=== PATIENT | male | born 1960 | race African-American/Black ===

== ENCOUNTER 2017-06-19 07:24 | Emergency (ER) | payer MEDICARE, SELFPAY ==
[2017-06-19 07:25] VITALS: BP 149/83; PULSE 66; RESP 17; TEMP 36.5; O2SAT 97; BMI 243.2
--- NOTE | 2017-06-19 07:51 | ED.DCSUM_ITS ---
- ER Visit Summary Date of Service: 06/19/17 Chief Complaint: Nausea and vomiting History of Present Illness: The patient is a 56 M history of hypertension, anemia and end-stage renal disease. He is normally dialyzed Saturday. Today he went to dialysis had nausea vomiting and they sent him into the ER. He never was dialyzed today and his last dialysis was Saturday. He did have some abdominal cramping when he was vomiting he said that is completely resolved. He denies any recent abdominal pain in the last several days. His last bowel movement was yesterday. He denies any melena. He still is able to urinate and is urinating normally. He denies any dysuria. He denies any fever. He denies any headache, chest pain or shortness of breath. He is not on any blood thinners. Physical Examination: Well appearing middle-aged male. Vital signs are stable and afebrile. He does not look septic or toxic. He is in no acute distress. H EENT exam unremarkable. No facial droop. Normal speech. No signs of trauma. Neck nontender no lymphadenopathy. Lungs clear to auscultation bilaterally. Heart regular rate and rhythm no murmur. Abdomen is soft and nontender. Normal bowel sounds. Nondistended. No hernias or masses. No peritoneal signs. He is moving all 4 extremities. 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 Normal range of motion both upper and lower extremities. Neurologic exam is normal without focal motor or deficits. Test Results: BC shows a white count of 4. H&H of 10 and 31 which are both baseline anemia for this patient and also low platelets which are also his baseline. Electrolytes are unremarkable anion gap of 11. He is a dialysis patient is BUN is 34 his creatinine is 12.9. His potassium is normal. Emergency Department Course and Treatment: Currently patient states his nausea is completely resolved. He is no longer having any abdominal pain. He does not want anything for pain or nausea. Treatment Plan: Repeat exam the patient is doing well at 08 41. His nausea is resolved. He is having no abdominal pain and he will be discharged to home. We will speak with dialysis to see if he can get dialyzed today since he missed his appointment this morning. Disposition: Discharge Impression: Acute nausea and vomiting History of end-stage renal disease and dialysis. History of hypertension and chronic anemia This note was generated with Dragon dictation software. It may contain incorrect words, spelling, and punctuation that were not noted in review of the chart prior to signing ED Disposition - Plan for ED Patient: Disposition: Home or Assisted Living Chief Complaint: Nausea/Vomiting Instructions: ED Nausea Vomiting Prescriptions: Ondansetron [Zofran Odt] 4 mg PO Q4H PRN PRN #7 tab.rapdis PRN Reason: Nausea Referrals: Sesar Quiñones MD [Primary Care Provider] - As Needed Additional Instructions: Zofran as needed for nausea Call or return if you are feeling worse
--- NOTE | 2017-06-19 08:16 | ED.DEP ---
ED Disposition - Plan for ED Patient: Disposition: Home or Assisted Living Chief Complaint: Nausea/Vomiting Instructions: ED Nausea Vomiting Prescriptions: Ondansetron [Zofran Odt] 4 mg PO Q4H PRN PRN #7 tab.rapdis PRN Reason: Nausea Referrals: Sesar Quiñones MD [Primary Care Provider] - As Needed Additional Instructions: Zofran as needed for nausea Call or return if you are feeling worse
[2017-06-19 08:23] LABS: Absolute Lymphocyte Count 1.43 X10^3/ul (0.83-4.51); Absolute Neutrophil Count 2.2 X10^3/uL (2.0-7.7); Basophil# 0.03 X10^3/uL; Basophil% 0.7 % (0-1); Eosinophil# 0.21 X10^3/uL; Hematocrit 31.6 % (40-54); Hemoglobin 10.1 g/dl (13.0-16.5); Lymphocyte # 1.43 X10^3/ul (4.0); Mean Corpuscular Hgb 30.6 pg (27.0-32.0); Mean Corpuscular Volume 95.8 fL (80-94); Mean Platelet Vol. 10.1 fl (6.2-12.0); Monocyte# 0.29 X10^3/uL; Monocyte% 6.9 % (0-10); Neutrophil # 2.24 X10^3/uL (2.7-7.7); Neutrophil % 53.4 % (47-70); Platelet Count 130 K/mm3 (150-450); RBC Distribution Width CV 14.1 % (11.6-14.6); RBC Distribution Width SD 49.4 fl (35.1-43.9); White Blood Count 4.2 K/mm3 (4.4-11.0)
[2017-06-19 08:24] LABS: POSITIVE COUNT NO; POSITIVE DIFFERENTIAL NO; POSITIVE MORPHOLOGY NO
[2017-06-19 08:40] LABS: Anion Gap 11 (5-15); BUN 34 mg/dL (7-18); BUN/Creat Ratio 2.6 RATIO (10-20); Calcium,Total 7.5 mg/dL (8.5-10.1); Chloride 100 mmol/L (98-107); EST Glomerular Filtration Rate 4 mL/min (>60); Est Glom Filt Rate - Afr Amer 5 mL/min (>60); Estimated Creatinine Clearance 6.32 ml/min; Glucose 93 mg/dL (74-106); Potassium 3.9 mmol/L (3.5-5.1); Sodium Level 144 mmol/L (136-145)
[2017-06-19 08:55] VITALS: BP 127/71; PULSE 73; RESP 15; O2SAT 98
--- NOTE | 2017-06-19 09:05 | NURSING ---
CALLED SAME FOR TRANSPORT
== END 2017-06-19 09:30 | disposition home or self-care (01) ==
PROVIDERS: Emergency Provider Emergency Medicine; Family Provider Family Medicine; PCP Family Medicine
DX: R11.2 Nausea with vomiting, unspecified (principal); I12.0 Hypertensive chronic kidney disease with stage 5 chronic kidney disease or end stage renal disease; N18.6 End stage renal disease; D63.1 Anemia in chronic kidney disease; Z99.2 Dependence on renal dialysis; Z79.899 Other long term (current) drug therapy; Z72.0 Tobacco use
CPT/HCPCS: 36415; 80048; 85025; A4216

== ENCOUNTER 2017-06-19 18:11 | Emergency (ER) | payer MEDICARE, SELFPAY ==
[2017-06-19 18:12] VITALS: BP 161/76; PULSE 87; RESP 24; TEMP 36.4; O2SAT 98; BMI 25.3
--- NOTE | 2017-06-19 18:38 | EKG12_ITS ---
Test Reason : NAUSEA Blood Pressure : / mmHG Vent. Rate : 052 BPM Atrial Rate : 052 BPM P-R Int : 166 ms QRS Dur : 168 ms QT Int : 714 ms P-R-T Axes : 054 057 201 degrees QTc Int : 664 ms Sinus bradycardia Left bundle branch block Abnormal ECG Repolarization Confirmed by MODESTA DINH, MEHDI ([id number]), multimedia editor LEVI ROSE ([id number]) on 06/25/2017 1:46:28 PM Referred By: AILEEN Confirmed By:MEHDI BYERS MD
[2017-06-19] MEDS: Ondansetron ODT 4 MG Tablet 8 MG PO (18:47)
[2017-06-19 20:56] VITALS: BP 146/106; PULSE 61; RESP 14
[2017-06-19] MEDS: Morphine 4 MG/ML Syringe IV (21:32)
[2017-06-19 21:33] VITALS: BP 156/75; PULSE 61; RESP 16
[2017-06-19] MEDS: proMETHazine 25 MG/ML Syringe 6.25 MG IV (21:33)
[2017-06-19 22:04] VITALS: BP 156/75; PULSE 63; RESP 18
--- NOTE | 2017-06-19 22:10 | ED.DCSUM_ITS ---
- ER Visit Summary Date of Service: 06/19/17 Chief Complaint: Nausea and vomiting History of Present Illness: The patient is a [address] Quiñones. Patient was seen in the emergency department earlier today with nausea and vomiting. This resolved and he left and went to dialysis. Reports that after dialysis he became nauseated again. He has not vomited. He reports that he is spitting up. He denies any abdominal pain. He does report he had one episode of diarrhea today. He denies any chest pain or shortness of breath. He does complain of subjective fever and chills. Physical Examination: Vitals: Stable. Afebrile. General: Well-nourished and well-developed. Head: Normocephalic atraumatic. Neck: Supple, no lymphadenopathy. No JVD. Nontender. Cardiovascular: Regular rate and rhythm. No murmurs. Respiratory: No respiratory distress. Clear to auscultation bilaterally. Abdominal: Soft, nontender, nondistended, normal bowel sounds. No guarding, rebound, or peritoneal signs. Back: Nontender. Extremities: Nontender, no edema. Skin: Normal color, no rash. Neurologic: Alert and oriented ?3. Cranial nerves II through XII are intact. Normal strength and sensation. Psych: Normal affect. Test Results: Blood work from 819 this morning was not repeated. He has had dialysis since that time. It was unremarkable. However, an EKG was obtained which shows sinus bradycardia rate of 52 with left bundle branch block. This is has no significant changes since March. I feel that the only real difference is lead placement. His troponin was negative. Emergency Department Course and Treatment: Patient is treated Zofran p.o. and Phenergan IV. He has not vomited and is resting comfortably. Treatment Plan: Patient feels well and would like to go home. He will be discharged with Zofran and Phenergan. Instructed to follow-up with Dr. Quiñones in 1-2 days if not improving. Return to the emergency department for any worsening symptoms. Disposition: To home in improved and stable condition. Impression: 1. Vomiting. 2. End-stage renal disease. 3. Left bundle branch block, old. This note was generated with [employer] software. It may contain incorrect words, spelling, and punctuation that were not noted in review of the chart prior to signing ED Disposition - Plan for ED Patient: Disposition: Home or Assisted Living Chief Complaint: Nausea/Vomiting Instructions: ED Nausea Vomiting Prescriptions: proMETHazine tablet [Phenergan] 25 mg PO Q6H PRN PRN #10 tablet PRN Reason: Nausea Ondansetron [Zofran Odt] 4 mg PO Q8H PRN PRN #10 tablet PRN Reason: Nausea Referrals: Sesar Quiñones MD [Primary Care Provider] - 1-2 Days if not improving
[2017-06-19] MEDS: Ondansetron ODT 4 MG Tablet PO (22:29)
[2017-06-19] MEDS: proMETHazine 25 MG Tablet PO (22:29)
== END 2017-06-19 22:34 | disposition home or self-care (01) ==
PROVIDERS: Emergency Provider Emergency Medicine; Family Provider Family Medicine; PCP Family Medicine
DX: R11.2 Nausea with vomiting, unspecified (principal); I12.0 Hypertensive chronic kidney disease with stage 5 chronic kidney disease or end stage renal disease; N18.6 End stage renal disease; D63.1 Anemia in chronic kidney disease; I44.7 Left bundle-branch block, unspecified; Z79.899 Other long term (current) drug therapy; Z99.2 Dependence on renal dialysis; Z72.0 Tobacco use
CPT/HCPCS: 36415; 80048; 84484; 85025; 93005; 96374; 96375; 99283; 99285; A4216

== ENCOUNTER 2017-06-27 22:44 | Emergency (ER) | payer MEDICARE, SELFPAY ==
[2017-06-27 22:45] VITALS: BP 167/108; PULSE 68; RESP 17; TEMP 36.2; O2SAT 96; BMI 25.1
--- NOTE | 2017-06-28 00:08 | EKG12_ITS ---
Test Reason : Blood Pressure : / mmHG Vent. Rate : 072 BPM Atrial Rate : 072 BPM P-R Int : 170 ms QRS Dur : 156 ms QT Int : 476 ms P-R-T Axes : 047 016 183 degrees QTc Int : 521 ms Normal sinus rhythm Left bundle branch block Abnormal ECG Confirmed by RUBIO DINH, MIRIAM ([id number]), photo editor LEVI ROSE ([id number]) on 07/01/2017 3:00:37 PM Referred By: HELEN Confirmed By:MIRIAM BERGERON MD
[2017-06-28 00:32] LABS: Absolute Neutrophil Count 2.5 X10^3/uL (2.0-7.7); Basophil# 0.04 X10^3/uL; Basophil% 0.8 % (0-1); Eosinophils% 3.8 % (0-5); Hematocrit 31.9 % (40-54); Hemoglobin 10.5 g/dl (13.0-16.5); Lymphocyte % 38.5 % (19-41); Mean Corp Hgb Conc 32.9 g/gl (32-36); Mean Corpuscular Hgb 30.7 pg (27.0-32.0); Mean Corpuscular Volume 93.3 fL (80-94); Mean Platelet Vol. 10.2 fl (6.2-12.0); Monocyte# 0.44 X10^3/uL; Monocyte% 8.5 % (0-10); Neutrophil # 2.51 X10^3/uL (2.7-7.7); Neutrophil % 48.2 % (47-70); Platelet Count 144 K/mm3 (150-450); RBC Distribution Width CV 13.9 % (11.6-14.6); Red Blood Count 3.42 M/mm3 (4.6-6.2); White Blood Count 5.2 K/mm3 (4.4-11.0)
[2017-06-28 00:34] LABS: POSITIVE COUNT NO; POSITIVE DIFFERENTIAL NO; POSITIVE MORPHOLOGY NO
[2017-06-28] MEDS: Ondansetron 4 MG/2 ML Vial IV (00:54)
[2017-06-28 00:58] LABS: Anion Gap 10 (5-15); BUN 59 mg/dL (7-18); BUN/Creat Ratio 3.6 RATIO (10-20); Calcium,Total 8.1 mg/dL (8.5-10.1); Chloride 100 mmol/L (98-107); EST Glomerular Filtration Rate 3 mL/min (>60); Est Glom Filt Rate - Afr Amer 4 mL/min (>60); Estimated Creatinine Clearance 4.94 ml/min; Glucose 96 mg/dL (74-106); Potassium 4.1 mmol/L (3.5-5.1); Sodium Level 141 mmol/L (136-145)
--- NOTE | 2017-06-28 01:13 | ED.VISSUMM ---
- ER Visit Summary Date of Service: 06/28/17 Chief Complaint: [Nausea] History of Present Illness: The patient is a 56 M [presents to the emergency department chief complaint of nausea that started today. Patient states that he missed dialysis 2 days ago because he did not have a ride. Patient also had 2 episodes of diarrhea today. Patient denies any chest pain. Patient denies shortness of breath. Patient denies any fever. Patient has nausea medicine at home but did not take it. Patient scheduled to have dialysis at 630 tomorrow morning.] Physical Examination: [HEENT-PERRLA, EOMI. Cranial nerves II through XII grossly intact. TMs clear. Mucous membranes moist. No adenopathy. Cardiovascular-regular rate and rhythm without murmur or ectopy Lungs-clear to auscultation, chest wall stable without crepitus or subcu emphysema Abdomen-normoactive bowel sounds, soft, nontender, no rebound or rigidity, no peritoneal signs. Extremities-intact ?4, normal range of motion, normal pulses, atraumatic] Test Results: [EKG obtained on arrival showed a sinus rhythm with a ventricular rate 72 bpm with a left bundle branch block and when compared with prior EKG from June 19, 2017 no new changes noted. CBC with differential showed a white count of 5.2, hemoglobin 10.5, hematocrit 32, platelets 144. Chemistry showed a sodium 141 potassium 4.1 chloride 100 was 96 BUN 59 and creatinine 16 troponin was 0.02] Emergency Department Course and Treatment: [Patient received Zofran 4 mg IV and felt much improved] Treatment Plan: [Patient advised to follow-up with dialysis tomorrow morning. Patient to use his antinausea medication at home as needed.] Disposition: [Discharged home in stable condition.] Impression: [Nausea Diarrhea Chronic renal failure] This note was generated with [employer] dictation software. It may contain incorrect words, spelling, and punctuation that were not noted in review of the chart prior to signing ED Disposition - Plan for ED Patient: Chief Complaint: General Illness Referrals: Sesar Quiñones MD [Primary Care Provider] -
--- NOTE | 2017-06-28 01:16 | ED.DEP ---
ED Disposition - Plan for ED Patient: Chief Complaint: General Illness Instructions: ED Nausea Vomiting Referrals: Sesar Quiñones MD [Primary Care Provider] - 3-5 Days
[2017-06-28 01:25] VITALS: BP 145/87; PULSE 78; RESP 16; O2SAT 97
== END 2017-06-28 01:26 | disposition home or self-care (01) ==
PROVIDERS: Emergency Provider Emergency Medicine; Family Provider Family Medicine; PCP Family Medicine
DX: R11.0 Nausea (principal); R19.7 Diarrhea, unspecified; I13.2 Hypertensive heart and chronic kidney disease with heart failure and with stage 5 chronic kidney disease, or end stage renal disease; N18.6 End stage renal disease; I50.9 Heart failure, unspecified; Z99.2 Dependence on renal dialysis; E78.00 Pure hypercholesterolemia, unspecified; G40.909 Epilepsy, unspecified, not intractable, without status epilepticus; Z79.899 Other long term (current) drug therapy; Z72.0 Tobacco use
CPT/HCPCS: 80048; 84484; 85025; 93005; 96374; 99283; A4216; J2405

== ENCOUNTER 2017-07-01 00:16 | Emergency (ER) | payer MEDICARE, SELFPAY ==
[2017-07-01 00:18] VITALS: BP 209/101
[2017-07-01 00:19] VITALS: BP 203/123; PULSE 60; RESP 20; TEMP 36.8; O2SAT 95; BMI 26.1
--- NOTE | 2017-07-01 00:30 | CT_ITS ---
STUDY: CT ABDOMEN AND PELVIS WITHOUT CONTRAST REASON FOR EXAM: Male, 56 years old. Abdominal pain RADIATION DOSAGE (If Supplied By Facility): CTDIvol = ( 6.44 ) mGy, DLP = ( 307.45 ) mGycm TECHNIQUE: Transaxial images were obtained from the dome of the diaphragm to the symphysis pubis without oral contrast, and without intravenous contrast. Sagittal and coronal images were reconstructed. Individualized dose optimization techniques were used for this CT. COMPARISON: March 27, 2017 FINDINGS: There are infiltrates at the lung bases. The visualized portions of the heart are within normal limits. Normal liver. Normal gallbladder and extrahepatic biliary system. Normal spleen. Normal pancreas. There are adenomatous in the RIGHT adrenal gland unchanged from the prior examination. There has been a RIGHT nephrectomy. There is a mass in the lower pole of the LEFT kidney measuring 4 cm. This is unchanged from the prior study. There is NO LEFT hydronephrosis. Normal visualized stomach. Normal small intestine. There are multiple colonic diverticula consistent with diverticulosis. The appendix is visualized and appears normal. There is diffuse atherosclerotic calcification of the abdominal aorta, without a demonstrated aneurysm. Normal inferior vena cava. Normal retroperitoneum. Normal urinary bladder. There is NO ascites, free air, abscess or adenopathy. Normal abdominal wall. Normal osseous structures. CT/Abdomen/Pelvis without Cont IMPRESSION: There are infiltrates at the lung bases. There are adenomatous in the RIGHT adrenal gland unchanged from the prior examination. There has been a RIGHT nephrectomy. There is a mass in the lower pole of the LEFT kidney measuring 4 cm. This is unchanged from the prior study. There is NO LEFT hydronephrosis. Normal visualized stomach. Normal small intestine. There are multiple colonic diverticula consistent with diverticulosis. The appendix is visualized and appears normal. There is diffuse atherosclerotic calcification of the abdominal aorta, without a demonstrated aneurysm. There is NO ascites, free air, abscess or adenopathy. Electronically Signed: Cj Palacios MD at 2:07 EDT , Service support ,
--- NOTE | 2017-07-01 00:35 | ED.DCSUM_ITS ---
- ER Visit Summary Date of Service: 07/01/17 Chief Complaint: [] Nausea and vomiting History of Present Illness: The patient is a 56 M [] history of end-stage renal disease presents with complaints of nausea and vomiting and diarrhea. Reports he gets dialysis Saturday, Saturday, Saturday. Reports compliance with dialysis. Denies fevers. Denies abdominal pain. Denies chest pain or shortness of breath. Physical Examination: [] BP 203/123, remainder of vitals are unremarkable. Afebrile. 56-year-old male no acute distress. Cardiovascular exam is distant with a systolic murmur regular rate. Lungs are clear to auscultation with distant breath sounds at the bases. Abdomen is soft with mild diffuse tenderness. No guarding or rebound noted there is no lower extremity edema. Remainder of exam is unremarkable. Test Results: [] Hemoglobin returned 9.9. BUN/creatinine measured 58 and 17.6, respectively. This is consistent with patient's history of end-stage renal disease. LFTs normal. CT abdomen/pelvis without contrast revealed questionable infiltrates at bases otherwise negative examination. Emergency Department Course and Treatment: [] On serial exam after oral clonidine 142/61. Remainder of vitals are within normal limits including pulse oximetry on room air. Patient had no respiratory symptoms, fever, cough, shortness of breath. The CT finding of questionable infiltrates may actually be fluid as the patient is due for dialysis. Despite this the patient was given 1 g of IM Rocephin. We are unable to obtain intravenous access throughout the ED visit. I did not feel the risk-benefit of placing a central line was warranted. Patient was given IM and/or oral meds. On serial exam patient had improvement of symptoms. He was encouraged to follow -up with his primary care physician and make sure he remains compliant with his dialysis. Instructed to return if symptoms worsen. Given a prescription for Phenergan tablets. 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 Disposition: [] Discharge, stable Impression: [] Nausea Vomiting History of end-stage renal disease This note was generated with [employer] software. It may contain incorrect words, spelling, and punctuation that were not noted in review of the chart prior to signing ED Disposition - Plan for ED Patient: Chief Complaint: Nausea/Vomiting/Diarrhea Referrals: Sesar Quiñones MD [Primary Care Provider] -
[2017-07-01 00:56] LABS: Absolute Neutrophil Count 4.2 X10^3/uL (2.0-7.7); Basophil# 0.02 X10^3/uL; Basophil% 0.4 % (0-1); Eosinophil# 0.06 X10^3/uL; Eosinophils% 1.1 % (0-5); Hematocrit 30.2 % (40-54); Hemoglobin 9.9 g/dl (13.0-16.5); Lymphocyte % 16.5 % (19-41); Mean Corp Hgb Conc 32.8 g/gl (32-36); Mean Corpuscular Hgb 31.4 pg (27.0-32.0); Mean Corpuscular Volume 95.9 fL (80-94); Mean Platelet Vol. 11.3 fl (6.2-12.0); Monocyte# 0.26 X10^3/uL; Monocyte% 4.8 % (0-10); Neutrophil # 4.19 X10^3/uL (2.7-7.7); Neutrophil % 76.8 % (47-70); Platelet Count 115 K/mm3 (150-450); RBC Distribution Width CV 13.8 % (11.6-14.6); Red Blood Count 3.15 M/mm3 (4.6-6.2); White Blood Count 5.5 K/mm3 (4.4-11.0)
[2017-07-01 00:58] LABS: POSITIVE COUNT NO; POSITIVE DIFFERENTIAL NO; POSITIVE MORPHOLOGY NO
[2017-07-01] MEDS: Morphine 2 MG/ML Syringe IM (01:18)
[2017-07-01] MEDS: proMETHazine 25 MG/ML Syringe 6.25 MG IM (01:19)
[2017-07-01] MEDS: Clonidine HCl 0.1 MG, Clonidine HCl 0.2 MG 0.3 MG PO (01:21)
[2017-07-01 01:22] VITALS: BP 203/91; PULSE 59; RESP 20
[2017-07-01 01:47] LABS: ALB/GLOB Ratio 0.8 RATIO (0.9-2.4); AST(SGOT) 6 U/L (15-37); Alanine Aminotransfer ALT/SGPT 13 U/L (16-61); Albumin, Serum 3.3 g/dL (3.2-5.0); Alkaline Phosphatase 79 U/L (45-117); Anion Gap 13 (5-15); BUN 58 mg/dL (7-18); BUN/Creat Ratio 3.3 RATIO (10-20); Calcium,Total 8.1 mg/dL (8.5-10.1); Chloride 103 mmol/L (98-107); EST Glomerular Filtration Rate 3 mL/min (>60); Est Glom Filt Rate - Afr Amer 4 mL/min (>60); Estimated Creatinine Clearance 4.63 ml/min; Globulin 4.1 g/dL (2.2-4.2); Glucose 115 mg/dL (74-106); Protein, Total 7.4 g/dL (6.4-8.2); Sodium Level 143 mmol/L (136-145)
--- NOTE | 2017-07-01 01:49 | ED.RN ---
Dr Mancilla notified of creatinine of 17.6
[2017-07-01 02:34] VITALS: BP 142/61; PULSE 57; RESP 15
--- NOTE | 2017-07-01 02:47 | ED.DEP ---
ED Disposition - Plan for ED Patient: Disposition: Home or Assisted Living Chief Complaint: Nausea/Vomiting/Diarrhea Diagnosis: ESRD (end stage renal disease) on dialysis Instructions: ED Nausea Vomiting Prescriptions: proMETHazine tablet [Phenergan tablet] 25 mg PO Q4H PRN PRN #20 tab PRN Reason: Nausea Referrals: Sesar Quiñones MD [Primary Care Provider] -
[2017-07-01] MEDS: Ceftriaxone 500 MG Vial 1000 MG IM (02:51)
[2017-07-01 03:45] VITALS: BP 144/59; PULSE 60; RESP 17; O2SAT 99
--- NOTE | 2017-07-01 06:25 | NURSING ---
HAVE BEEN MAKING MULTIPLE ATTEMPTS TO CALL THE PT GRISELDA AND NADER FOR A RIDE FOR THE PT.
[2017-07-01 06:26] VITALS: RESP 16
--- NOTE | 2017-07-01 06:28 | NURSING ---
FINALLY GOT THE PT BROTHER TO COME PICK HIM UP
== END 2017-07-01 06:28 | disposition home or self-care (01) ==
PROVIDERS: Emergency Provider Emergency Medicine; Family Provider Family Medicine; PCP Family Medicine
DX: R11.2 Nausea with vomiting, unspecified (principal); I12.0 Hypertensive chronic kidney disease with stage 5 chronic kidney disease or end stage renal disease; N18.6 End stage renal disease; E78.00 Pure hypercholesterolemia, unspecified; I49.9 Cardiac arrhythmia, unspecified; Z99.2 Dependence on renal dialysis; Z79.899 Other long term (current) drug therapy; Z72.0 Tobacco use
CPT/HCPCS: 74176; 80053; 85025; 96372; 99285; J7030; J7040; A4216

== ENCOUNTER 2017-07-03 20:03 | Emergency (ER) | payer MEDICARE, SELFPAY ==
[2017-07-03 20:05] VITALS: BP 188/96; PULSE 79; RESP 28; TEMP 36.6; O2SAT 98; BMI 25.0
--- NOTE | 2017-07-03 21:06 | EKG12_ITS ---
Test Reason : ABNORMAL EKG PRE ER Blood Pressure : / mmHG Vent. Rate : 073 BPM Atrial Rate : 073 BPM P-R Int : 158 ms QRS Dur : 158 ms QT Int : 560 ms P-R-T Axes : 054 033 181 degrees QTc Int : 616 ms Normal sinus rhythm Left bundle branch block Abnormal ECG Confirmed by MODESTA DINH, MEHDI ([id number]), editor producer LEVI ROSE ([id number]) on 07/05/2017 1:10:22 PM Referred By: ANURADHA Confirmed By:MEHDI BYERS MD
[2017-07-03] MEDS: Ondansetron ODT 4 MG Tablet PO (21:48)
[2017-07-03 22:28] LABS: Absolute Lymphocyte Count 0.77 X10^3/ul (0.83-4.51); Absolute Neutrophil Count 3.3 X10^3/uL (2.0-7.7); Basophil# 0.02 X10^3/uL; Basophil% 0.4 % (0-1); Eosinophil# 0.07 X10^3/uL; Eosinophils% 1.5 % (0-5); Hematocrit 32.5 % (40-54); Hemoglobin 10.6 g/dl (13.0-16.5); Lymphocyte # 0.77 X10^3/ul (4.0); Lymphocyte % 16.5 % (19-41); Mean Corp Hgb Conc 32.6 g/gl (32-36); Mean Corpuscular Hgb 30.6 pg (27.0-32.0); Mean Corpuscular Volume 93.9 fL (80-94); Mean Platelet Vol. 10.3 fl (6.2-12.0); Monocyte# 0.51 X10^3/uL; Monocyte% 10.9 % (0-10); Neutrophil # 3.29 X10^3/uL (2.7-7.7); Neutrophil % 70.5 % (47-70); POSITIVE COUNT NO; POSITIVE DIFFERENTIAL NO; POSITIVE MORPHOLOGY NO; Platelet Count 146 K/mm3 (150-450); RBC Distribution Width CV 13.9 % (11.6-14.6); Red Blood Count 3.46 M/mm3 (4.6-6.2); White Blood Count 4.7 K/mm3 (4.4-11.0)
[2017-07-03 22:51] LABS: Anion Gap 11 (5-15); BUN 20 mg/dL (7-18); BUN/Creat Ratio 2.1 RATIO (10-20); Calcium,Total 8.8 mg/dL (8.5-10.1); Chloride 95 mmol/L (98-107); Creatinine, Serum 9.51 mg/dL (0.70-1.30); EST Glomerular Filtration Rate 6 mL/min (>60); Est Glom Filt Rate - Afr Amer 7 mL/min (>60); Estimated Creatinine Clearance 8.57 ml/min; Glucose 107 mg/dL (74-106); Potassium 3.5 mmol/L (3.5-5.1); Sodium Level 139 mmol/L (136-145)
--- NOTE | 2017-07-03 22:51 | ED.RN ---
LAB CALLS WITH CRITICAL RESULT, CREATININE 9.51, DR. LING MADE AWARE.
[2017-07-03 23:30] VITALS: BP 154/83; PULSE 80; RESP 16; O2SAT 94
--- NOTE | 2017-07-03 23:33 | ED.VISSUMM ---
- ER Visit Summary Date of Service: 07/03/17 Chief Complaint: Numbness, nausea vomiting and not feeling well History of Present Illness: The patient is a 56 M who has history of CHF, hypertension, hypercalcemia, end-stage renal disease on hemodialysis and seizure disorder presents with nausea, vomiting and generalized weakness and not feeling well. He states symptoms started today. He did go to dialysis today. He states he missed dialysis last week. He denies fever, chills night sweats. Denies double vision, blurred vision or loss of vision. Denies earache, runny nose or sore throat. No chest pain or palpitations. He denies orthopnea PND. Denies cough, shortness of breath or dyspnea on exertion. He denies abdominal pain, diarrhea or constipation. He denies black stool. He does make urine and states there is been no change in the color or frequency of his urination. He denies any discomfort. He denies any back pain. He denies rash. Does complain of generalized weakness without anesthesia, paresthesia moderates. Denies headache. Denies polyuria, polydipsia polyphagia. Physical Examination: Next field initial blood pressure was elevated 188/96. Respiratory rate is 28. I entered the room he was on his left side. He appeared in no discomfort. He was reluctant to ask questions. Head is atraumatic, cephalic. Pupils equal round reactive. TMs normal. Mucosa moist. Insert cardiopulmonary exam. Abdomen is soft nontender. Bowel sounds slightly diminished. There is no definite percussion. There is no CVA tenderness noted. Lower extremity exam is unremarkable. He is alert is oriented with nonfocal neurologic exam. Please read written note for complete detail. Test Results: CBC is remarkable for anemia of chronic illness secondary to renal failure. BMP is remarkable for creatinine of 9.5. BUN is 20. Repeat blood pressure is 154/84. Patient was not cooperative and has not allowed the nurse to repeat vitals. He informed her that he is upset because I would not give him any pain medicine. Emergency Department Course and Treatment: Blood work was obtained to evaluate his symptoms. He was treated with antiemetic. He was given oral antiemetics and IV was not established. He was not given any pain medicine because he had no complaint of pain and he is exam is benign. Treatment Plan: Discharge to home to follow-up with primary care physician Disposition: Discharged home in stable condition Impression: 1. Nausea and vomiting 2. Generalized weakness 3. Anemia secondary to renal failure 4. History of hypertension 5. History of congestive heart failure This note was generated with [employer] dictation software. It may contain incorrect words, spelling, and punctuation that were not noted in review of the chart prior to signing ED Disposition - Plan for ED Patient: Disposition: Home or Assisted Living Chief Complaint: Nausea/Vomiting Instructions: ED Nausea Vomiting Prescriptions: Ondansetron [Zofran Odt] 8 mg PO Q8H PRN PRN #5 PRN Reason: Nausea/Vomiting Referrals: Sesar Quiñones MD [Primary Care Provider] - 3-5 Days if not improving
[2017-07-03 23:51] VITALS: BP 160/87
== END 2017-07-03 23:52 | disposition home or self-care (01) ==
PROVIDERS: Emergency Provider Emergency Medicine; Family Provider Family Medicine; PCP Family Medicine
DX: R11.2 Nausea with vomiting, unspecified (principal); R53.1 Weakness; I13.2 Hypertensive heart and chronic kidney disease with heart failure and with stage 5 chronic kidney disease, or end stage renal disease; N18.6 End stage renal disease; Z99.2 Dependence on renal dialysis; I50.9 Heart failure, unspecified; D63.1 Anemia in chronic kidney disease; E83.52 Hypercalcemia; G40.909 Epilepsy, unspecified, not intractable, without status epilepticus; E78.00 Pure hypercholesterolemia, unspecified; Z79.899 Other long term (current) drug therapy; Z72.0 Tobacco use
CPT/HCPCS: 36415; 80048; 85025; 93005; 99285; A4216

== ENCOUNTER 2017-08-20 00:23 | Emergency (ER) | payer MEDICARE, SELFPAY ==
[2017-08-20 00:24] VITALS: BP 149/98; PULSE 79; RESP 16; TEMP 36.8; O2SAT 90; BMI 22.5
[2017-08-20] MEDS: Ondansetron ODT 4 MG Tablet PO (00:58)
[2017-08-20] MEDS: Loperamide 2 MG Capsule 4 MG PO (00:59)
[2017-08-20] MEDS: Dicyclomine 10 MG Capsule 20 MG PO (00:59)
--- NOTE | 2017-08-20 02:31 | ED.VISSUMM ---
- ER Visit Summary Date of Service: 08/20/17 Chief Complaint: Cramping abdominal pain with nausea, vomiting diarrhea History of Present Illness: The patient is a 56 M who presents with cramping abdominal pain with nausea, vomiting diarrhea that started today. Patient reports one episode of emesis that was not bloody or coffee-ground in appearance. 10 loose stools without blood or mucus and was not black or maroon in color. He has not been on antibiotics and last month. He has no ill contacts. He has not eaten anything that tasted unusual to him. He presently states he has minimal abdominal pain. He feels very nauseous, however. He does make urine. He states he has not made as much urine today as usual. He is on hemodialysis, Saturday, Saturday and Saturday. He denies fever, chills night sweats. He denies any ocular, visual auditory symptoms. He denies any cardiac or respiratory symptoms. Physical Examination: Vital signs are remarkable for slight elevation blood pressure 149/98. HEENT exam is marked for tacky mucosa. Heart is regular without murmur, gallop or rub. S1 and S2 are normal. Lungs are clear to auscultation with good movement of air bilaterally. Abdomen is soft nontender with slightly increased bowel sounds. There is no CVA tenderness noted. Neuro exam is nonfocal. Test Results: None Emergency Department Course and Treatment: Zofran 4 mg ODT, 20 mg of Bentyl p.o. and 4 mg Imodium p.o. Patient did passed p.o. challenge. He was observed for greater than 2 hours without vomiting or diarrhea. Treatment Plan: Discharged home with appropriate home-going instructions Disposition: Discharged home in stable and improved condition Impression: 1. Abdominal pain with nausea, vomiting diarrhea 2. Mild dehydration 3. End-stage renal disease on hemodialysis 4. History of hypertension 5. History of congestive heart failure 6. History of cardiomyopathy This note was generated with [employer] dictation software. It may contain incorrect words, spelling, and punctuation that were not noted in review of the chart prior to signing ED Disposition - Plan for ED Patient: Disposition: Home or Assisted Living Chief Complaint: Nausea/Vomiting/Diarrhea Instructions: ED Vomiting Diarrhea Nonspecific Ad Referrals: Sesar Quiñones MD [Primary Care Provider] - 1-2 Days if not improving
[2017-08-20 02:40] VITALS: BP 137/83; PULSE 75; RESP 18; O2SAT 94
--- NOTE | 2017-08-20 03:29 | ED.RN ---
PATIENT TO WAITING ROOM TO CONTINUE CALLING FOR RIDE. PT AMBULATES OUT TO WAITING ROOM WITHOUT DIFFICULTY.
== END 2017-08-20 03:29 | disposition home or self-care (01) ==
PROVIDERS: Emergency Provider Emergency Medicine; Family Provider Family Medicine; PCP Family Medicine
DX: R10.9 Unspecified abdominal pain (principal); R11.2 Nausea with vomiting, unspecified; R19.7 Diarrhea, unspecified; E86.0 Dehydration; I13.2 Hypertensive heart and chronic kidney disease with heart failure and with stage 5 chronic kidney disease, or end stage renal disease; N18.6 End stage renal disease; I50.9 Heart failure, unspecified; Z99.2 Dependence on renal dialysis; I42.9 Cardiomyopathy, unspecified; E78.00 Pure hypercholesterolemia, unspecified; M10.9 Gout, unspecified; G40.909 Epilepsy, unspecified, not intractable, without status epilepticus; Z79.899 Other long term (current) drug therapy; Z72.0 Tobacco use
CPT/HCPCS: 99284

== ENCOUNTER 2017-08-29 13:14 | Emergency (ER) | payer MEDICARE, SELFPAY ==
[2017-08-29 13:15] VITALS: BP 142/96; PULSE 81; PULSE 82; RESP 17; RESP 19; TEMP 36.6; O2SAT 98; BMI 23.6
--- NOTE | 2017-08-29 13:55 | EKG12_ITS ---
Test Reason : GENERAL ILLNESS Blood Pressure : / mmHG Vent. Rate : 078 BPM Atrial Rate : 078 BPM P-R Int : 162 ms QRS Dur : 158 ms QT Int : 504 ms P-R-T Axes : 059 008 147 degrees QTc Int : 574 ms Normal sinus rhythm Left bundle branch block Abnormal ECG Confirmed by ABELARDO OJEDA ([id number]), editorial project manager KIRILL JEAN BAPTISTE ([id number]) on 09/02/2017 10:14:30 AM Referred By: ALLYN Confirmed By:ABELARDO OJEDA
[2017-08-29] MEDS: 0.9% Normal Saline 1,000 ML 125 ML IV (14:26)
[2017-08-29] MEDS: Ondansetron 4 MG/2 ML Vial IV (14:26)
[2017-08-29] MEDS: morphine 8 MG/ML Syringe IV (14:26)
[2017-08-29 14:27] LABS: Absolute Neutrophil Count 1.5 X10^3/uL (2.0-7.7); Basophil# 0.04 X10^3/uL; Eosinophils% 5.1 % (0-5); Hematocrit 33.2 % (40-54); Hemoglobin 10.8 g/dl (13.0-16.5); Mean Corp Hgb Conc 32.5 g/gl (32-36); Mean Corpuscular Volume 92.2 fL (80-94); Mean Platelet Vol. 9.2 fl (6.2-12.0); Monocyte# 0.57 X10^3/uL; Monocyte% 14.6 % (0-10); Neutrophil # 1.49 X10^3/uL (2.7-7.7); Neutrophil % 38.3 % (47-70); POSITIVE COUNT NO; POSITIVE DIFFERENTIAL NO; POSITIVE MORPHOLOGY NO; Platelet Count 160 K/mm3 (150-450); RBC Distribution Width CV 16.1 % (11.6-14.6); RBC Distribution Width SD 53.7 fl (35.1-43.9); White Blood Count 3.9 K/mm3 (4.4-11.0)
[2017-08-29 14:43] LABS: Anion Gap 8 (5-15); BUN 34 mg/dL (7-18); BUN/Creat Ratio 3.5 RATIO (10-20); Calcium,Total 7.5 mg/dL (8.5-10.1); Chloride 94 mmol/L (98-107); Creatinine, Serum 9.63 mg/dL (0.70-1.30); EST Glomerular Filtration Rate 6 mL/min (>60); Est Glom Filt Rate - Afr Amer 7 mL/min (>60); Estimated Creatinine Clearance 8.46 ml/min; Glucose 106 mg/dL (74-106); Lipase 659 U/L (73-393); Potassium 4.3 mmol/L (3.5-5.1); Sodium Level 136 mmol/L (136-145)
--- NOTE | 2017-08-29 14:44 | ED.RN ---
PRISCILLA FROM LAB CALLED WITH CRITICAL VALUE CREATININE 9.63. DR. GRUBER INFORMED OF SAME.
--- NOTE | 2017-08-29 15:00 | RAD_ITS ---
STUDY: X-RAY CHEST REASON FOR EXAM: Male, 56 years old. Abdominal pain. Nausea and diarrhea. TECHNIQUE: Single AP portable view of the chest. COMPARISON: Comparison is made with prior examination dated August 21, 2016. FINDINGS: The lungs are clear and expanded. There is no demonstrated pleural abnormality. There is moderate cardiac enlargement. Normal mediastinum and anselmo. Normal visualized pulmonary arteries. Normal visualized aortic arch and descending thoracic aorta. There are diffuse degenerative changes of the visualized thoracic spine. There is degenerative osteoarthritis of the bilateral shoulders. Surgical clips are seen in the epigastric region. RAD/Chest 1 View (Portable) IMPRESSION: Moderate cardiomegaly. Electronically Signed: Russ Elias MD at 15:28 EDT Tel [phone], Service support ,
--- NOTE | 2017-08-29 15:03 | ED.DCSUM_ITS ---
- ER Visit Summary Date of Service: 08/29/17 Chief Complaint: [] Feeling warm all over end-stage renal disease on dialysis History of Present Illness: The patient is a 56 M [] history of dialysis right upper extremity fistula he was feeling fine yesterday had complete dialysis session with no difficulty. Indicates his other medical issues are all stable he woke this morning and felt hot all over did not take his temperature he had no other symptoms, he had no documented fever no runny nose no sore throat cough chest pain or abdominal pain he makes possibly half a cup of urine a day and that has been unremarkable no skin rashes no exposures no diarrhea or vomiting, he presented to the emergency part because he felt warm all over he had a temperature of 97.9 was in no distress wanted to be evaluated Physical Examination: [] His temperature is as above he is in no distress he has no specific complaints of any kind head neck chest unremarkable nose and throat negative neck is supple lungs are clear heart tones are normal his right upper extremity fistula is unremarkable and has a normal thrill it is not tender it is not warm his extremity exams unremarkable back and skin exams are unremarkable he has a nontender abdomen Test Results: [] Emergency Department Course and Treatment: [] Pain to the patient nonspecific feeling warm can be very difficult to identify he has no complaints of anything to suggest an infection he had unremarkable dialysis yesterday he has no physical findings or complaints now his labs are unremarkable, his troponin is slightly elevated 0.07 he has had troponins to that level in the past, he had nuclear stress test in 2017 that showed no signs of ischemia he has no complaints or history of angina chest pain or shortness of breath rather feeling warm, his EKG shows a left bundle branch block nothing acute as his chest x-ray report see that he has not spiked a fever felt warm since he has been here given all the above we will ask him follow with his dialysis physicians tomorrow as scheduled and return for change in symptoms of explained all the test results with him now he is feeling as if he can be discharged home he understands he follow-up with physicians and return for change in symptoms Treatment Plan: [] Disposition: [] Stable home Impression: [] Sense of feeling warm etiology unclear, history of end-stage renal disease on dialysis This note was generated with [employer] dictation software. It may contain incorrect words, spelling, and punctuation that were not noted in review of the chart prior to signing ED Disposition - Plan for ED Patient: Chief Complaint: Nausea/Vomiting/Diarrhea Instructions: ED Diet Vomiting Diarrhea, ED Fever Unconf Cause Referrals: Sesar Quiñones MD [Primary Care Provider] -
[2017-08-29 16:39] VITALS: BP 145/84; PULSE 66; RESP 16; O2SAT 100
== END 2017-08-29 16:40 | disposition home or self-care (01) ==
PROVIDERS: Emergency Provider Emergency Medicine; Family Provider Family Medicine; PCP Family Medicine
DX: R20.8 Other disturbances of skin sensation (principal); I12.0 Hypertensive chronic kidney disease with stage 5 chronic kidney disease or end stage renal disease; N18.6 End stage renal disease; Z99.2 Dependence on renal dialysis; Z79.899 Other long term (current) drug therapy
CPT/HCPCS: 71045; 80048; 83690; 84484; 85025; 93005; 96374; 96375; 99285; J7030; A4216

== ENCOUNTER 2017-09-07 12:01 | Emergency (ER) | payer MEDICARE, SELFPAY ==
[2017-09-07 12:01] VITALS: BP 156/87; PULSE 114; RESP 16; TEMP 36.9; O2SAT 99; BMI 23.6
--- NOTE | 2017-09-07 12:18 | ED.RN ---
Pt states had an allergic reaction to bactrim. Requested we dispose of the meds for him. I dropped them in the rx waste.
[2017-09-07] MEDS: Doxycycline 100 MG CAPSULE PO (12:31)
[2017-09-07] MEDS: Oxymetazoline 0.05% 1 SPRAY SPRAY.BTL NASAL (12:31)
[2017-09-07] MEDS: HYDROcodone Bitartrate/Apap 5/325 Tablet PO (12:31)
--- NOTE | 2017-09-07 12:34 | ED.DCSUM_ITS ---
- ER Visit Summary Date of Service: 09/07/17 Chief Complaint: Allergic reaction History of Present Illness: The patient is a 57 M who was seen at urgent care yesterday for cold sores in my nose. He was given Bactroban and Bactrim. Patient states after taking the Bactrim he developed swelling to his upper lip and across his nose. He denies shortness of breath or rash. He does not believe he is ever had Bactrim previously. Physical Examination: Vital signs significant for blood pressure 156/87 and heart rate in triage 114. Patient sitting upright in bed in no acute distress. He is alert and talkative. Head and neck examination was mild right upper lip edema. No erythema or unusual skin warmth. He has no tongue edema. There is some mild edema across his nasal bridge. Intranasal examination reveals edema to the nasal turbinates. I do not appreciate any ulcerations at this time. Heart is regular rate and rhythm. Lung sounds are clear. Abdomen is soft nontender. Extremity examination significant for fistula in the right upper extremity. Test Results: [] Emergency Department Course and Treatment: Patient will be switched to doxycycline instead of Bactrim. Afrin nasal spray will be provided to help with the edema and the nasal turbinates. He will be given a single dose of Lucernemines here for pain but no prescription. Treatment Plan: [] Disposition: Discharge Impression: Allergic reaction to Bactrim This note was generated with [employer] dictation software. It may contain incorrect words, spelling, and punctuation that were not noted in review of the chart prior to signing ED Disposition - Plan for ED Patient: Chief Complaint: Allergic Reaction Referrals: Sesar Quiñones MD [Primary Care Provider] -
--- NOTE | 2017-09-07 12:34 | ED.DEP ---
ED Disposition - Plan for ED Patient: Disposition: Home or Assisted Living Chief Complaint: Allergic Reaction Instructions: ED Drug React Adverse Other Prescriptions: Doxycycline Monohydrate 100 mg PO BID #20 capsule Referrals: Sesar Quiñones MD [Primary Care Provider] - 5-7 Days
== END 2017-09-07 13:15 | disposition home or self-care (01) ==
LOC: ED 13:09
PROVIDERS: Emergency Provider Emergency Medicine; Family Provider Family Medicine; PCP Family Medicine
DX: R22.0 Localized swelling, mass and lump, head (principal); T37.0X5A Adverse effect of sulfonamides, initial encounter; Y92.9 Unspecified place or not applicable; I13.2 Hypertensive heart and chronic kidney disease with heart failure and with stage 5 chronic kidney disease, or end stage renal disease; N18.6 End stage renal disease; I50.9 Heart failure, unspecified; E78.00 Pure hypercholesterolemia, unspecified; G40.909 Epilepsy, unspecified, not intractable, without status epilepticus; I42.9 Cardiomyopathy, unspecified; Z99.2 Dependence on renal dialysis; Z79.899 Other long term (current) drug therapy; Z72.0 Tobacco use
CPT/HCPCS: 99283

== ENCOUNTER 2018-02-17 13:23 | Observation (INO) | payer MEDICARE, SELFPAY ==
[2018-02-17] VITALS (9 sets, daily range): BP systolic 113–129; BP diastolic 73–82; PULSE 78–90; RESP 11–26; TEMP 36.5–36.8; O2SAT 97–100; BMI 25.1; BMI 22.7
--- NOTE | 2018-02-17 14:03 | EKG12_ITS ---
Test Reason : CHEST PAIN Blood Pressure : / mmHG Vent. Rate : 083 BPM Atrial Rate : 083 BPM P-R Int : 160 ms QRS Dur : 172 ms QT Int : 474 ms P-R-T Axes : 061 065 207 degrees QTc Int : 556 ms Normal sinus rhythm Left bundle branch block Abnormal ECG Confirmed by MODESTA DINH, MEHDI ([id number]), scientific publications editor LEVI ROSE ([id number]) on 02/21/2018 10:35:59 AM Referred By: CHRISTIANO Confirmed By:MEHDI BYERS MD
[2018-02-17] MEDS: Aspirin 81 MG TAB.CHEW 324 MG PO (14:19)
--- NOTE | 2018-02-17 14:20 | ED.VISSUMM ---
- ER Visit Summary Date of Service: 02/17/18 Chief Complaint: Shortness of breath History of Present Illness: The patient is a 57 M presents for shortness of breath onset 2 hours ago. Patient initially also complained of chest pain, but is now denying any complaint of chest pain. Patient had hemodialysis this morning. Afterwards he was having shortness of breath. He denies any fever, cough, abdominal pain, nausea or vomiting, back pain, or other complaints. Denies any history of CHF, COPD, coronary artery disease. Patient has a history of end-stage renal disease, hypertension and irregular heartbeat. Physical Examination: Vital signs: afebrile, hemodynamically stable, no hypoxia on room air General: well nourished, well developed, in no distress Skin: warm, dry, no rash, no pallor HEENT: normocephalic and atraumatic; PERRL, EOMI, moist mucous membranes Cardiovascular: regular rate and rhythm without murmurs, no peripheral edema, 2+ pulses all distal extremities Respiratory: No increased work of breathing, lungs are clear to auscultation bilaterally, no rales, rhonchi or wheezing Abdominal: Abdomen is soft, nontender with normoactive bowel sounds, no guarding or rebound, no masses MSK: Moves all extremities, no deformities, normal strength, fistula in RUE with palpable thrill Neuro: Awake and alert, oriented ?4. No facial droop, sensation and motor function intact and symmetric Test Results: Abnormal Lab Results 02/17/18 02/17/18 14:21 14:21 WBC 4.1 L RBC 3.85 L Hgb 11.7 L Hct 35.5 L MCV 92.2 MCH 30.4 MCHC 33.0 RDW 13.1 RDW Differential 43.8 Plt Count 138 L MPV 10.8 Immature Gran % (Auto) 0.200 Neut % (Auto) 51.5 Lymph % (Auto) 34.5 [place] % (Auto) 8.7 Eos % (Auto) 4.1 Baso % (Auto) 1.0 Absolute Neuts (auto) 2.1 Absolute Lymphs (auto) 1.42 Total Counted Not Reportable Sodium 136 Potassium 4.4 Chloride 91 L Carbon Dioxide 39.0 H Anion Gap 6 BUN 35 H Creatinine 8.28 H* Estim Creat Clear Calc 9.72 Est GFR (MDRD) Af Amer 9 L Est GFR (MDRD) Non-Af 7 L BUN/Creatinine Ratio 4.2 L Glucose 88 Calcium 9.3 Troponin I 0.027 Clinical Impression(s) from Imaging Studies Chest X-Ray 02/17/18 14:24 IMPRESSION: Hyperinflation. The lungs are clear. Electronically Signed: Russ Elias MD at 15:13 EST Tel [phone], Service support , Medications Given Discontinued Medications Aspirin (Aspirin, Baby) 324 mg PO X1 STA Stop: 02/17/18 14:04 Last Admin: 02/17/18 14:19 Dose: 324 mg Nitroglycerin (Nitrostat) 0.4 mg SUBLINGUAL Q5M MARY Stop: 02/17/18 14:26 Last Admin: 02/17/18 14:21 Dose: Not Given Emergency Department Course and Treatment: Patient presents for shortness of breath, and initially was complaining of chest pain but then mcc through his history taking stated he never had chest pain. Chest pain workup had been initiated at this point, and patient received aspirin but refused the nitro. EKG showed a left bundle branch block negative for ischemia per sgarbossa criteria. Troponin 0 0.027, which is consistent with patient's prior levels. Creatinine elevated at 8.28, consistent with patient being a dialysis patient. Otherwise no electrolyte derangements, leukocytosis or significant anemia. Chest x-ray showed no volume overload or infiltrates. On reevaluation, patient was mildly tachypneic and stated he still was feeling short of breath and just did not feel well. We had further discussion about his complaint of chest pain, which he had then negated during the initial history -- patient clarified that he had been having chest heaviness rather than chest pain. We discussed if he normally feels this way after dialysis, and he states he sometimes has the shortness of breath but the chest heaviness was new. Because of patient's significant comorbidities and chest heaviness with persistent shortness of breath, this is concerning for possible atypical ACS. Patient was discussed with Dr. Rod for admission as observation status for further cardiac rule out. Treatment Plan: [] Disposition: [] Impression: Chest heaviness, shortness of breath, hemodialysis patient This note was generated with [employer] dictation software. It may contain incorrect words, spelling, and punctuation that were not noted in review of the chart prior to signing ED Disposition - Plan for ED Patient: Chief Complaint: Chest Pain Referrals: Sesar Quiñnoes MD [Primary Care Provider] -
--- NOTE | 2018-02-17 14:24 | RAD_ITS ---
STUDY: X-RAY CHEST REASON FOR EXAM: Male, 57 years old. Chest pain and chest heaviness. TECHNIQUE: PA and lateral views of the chest. COMPARISON: Comparison is made with prior study dated August 29, 2017. FINDINGS: EKG electrodes are seen. Hyperinflation. The lungs are clear. There is no demonstrated pleural abnormality. Normal size heart. Normal mediastinum and anselmo. Normal visualized pulmonary arteries. Normal visualized aortic arch and descending thoracic aorta. There are mild degenerative changes of the visualized thoracic spine. There is degenerative osteoarthritis of the bilateral shoulders. There is no demonstrated abnormality of the visualized soft tissue structures of the upper abdomen. RAD/Chest PA and Lateral IMPRESSION: Hyperinflation. The lungs are clear. Electronically Signed: Russ Elias MD at 15:13 EST Tel [phone], Service support ,
[2018-02-17 14:37] LABS: Absolute Lymphocyte Count 1.42 X10^3/ul (0.83-4.51); Absolute Neutrophil Count 2.1 X10^3/uL (2.0-7.7); Basophil# 0.04 X10^3/uL; Eosinophil# 0.17 X10^3/uL; Eosinophils% 4.1 % (0-5); Hematocrit 35.5 % (40-54); Hemoglobin 11.7 g/dl (13.0-16.5); Lymphocyte # 1.42 X10^3/ul (4.0); Lymphocyte % 34.5 % (19-41); Mean Corpuscular Hgb 30.4 pg (27.0-32.0); Mean Corpuscular Volume 92.2 fL (80-94); Mean Platelet Vol. 10.8 fl (6.2-12.0); Monocyte# 0.36 X10^3/uL; Monocyte% 8.7 % (0-10); Neutrophil # 2.12 X10^3/uL (2.7-7.7); Neutrophil % 51.5 % (47-70); POSITIVE COUNT NO; POSITIVE DIFFERENTIAL NO; POSITIVE MORPHOLOGY NO; Platelet Count 138 K/mm3 (150-450); RBC Distribution Width CV 13.1 % (11.6-14.6); RBC Distribution Width SD 43.8 fl (35.1-43.9); Red Blood Count 3.85 M/mm3 (4.6-6.2); White Blood Count 4.1 K/mm3 (4.4-11.0)
--- NOTE | 2018-02-17 14:41 | CM.ED ---
Social Work Note Referral from Estrellita Pena RN, that pt is requesting to speak with a social security benefits interviewer regarding transportation. Face to face with the pt and introduced self and role at [facility]. The pt states that he does not have transportation home. Inquire about his brother and he reports that both of his brothers work, and he does not know what hours because they change. Denies having tried to contact them for a ride. Inquire about his and he reports that she is no longer there and they are . Pt does go to dialysis at [facility] and gets transportation through [employer] in [place] that is approved through is [facility] in advance. He asks if his insurance will cover transport home and explain that his [facility] plan will only cover if it is in advance as they require a pre-cert. Discuss that this social security benefits interviewer could order a taxi if the pt had the means to pay for it, which he declines. Inquire if he can call his brothers, and he states yes. Inform that this social security benefits interviewer will call [place] to see if they could provide transportation home and it would be covered by insurance. Understanding expressed. Updated RN who will bring phone to pt's room for him to try and contact his siblings, Rasta or Dominguez Peterson. Placed call to [employer] at [phone] and spoke with Kalpana who states that they wrap up transportation around 4pm and would not be able to charge this transport to Medicaid. Pt made aware and will contact his brothers for transportation home upon his discharge is workup does not warrant admission. PLAN: Pt to utilize family as a resource for transportation home to [place]. Nerissa Gutiérrez, ASH, JEMMA
[2018-02-17 14:52] LABS: Anion Gap 6 (5-15); BUN 35 mg/dL (7-18); BUN/Creat Ratio 4.2 RATIO (10-20); Calcium,Total 9.3 mg/dL (8.5-10.1); Chloride 91 mmol/L (98-107); Creatinine, Serum 8.28 mg/dL (0.70-1.30); EST Glomerular Filtration Rate 7 mL/min (>60); Est Glom Filt Rate - Afr Amer 9 mL/min (>60); Estimated Creatinine Clearance 9.72 ml/min; Glucose 88 mg/dL (74-106); Potassium 4.4 mmol/L (3.5-5.1); Sodium Level 136 mmol/L (136-145)
--- NOTE | 2018-02-17 14:57 | ED.RN ---
LAB CALL CRITICAL VALUE CREAT 8.82, RESULT GIVEN TO ENRIQUE LARKIN.
--- NOTE | 2018-02-17 17:05 | PCM.HP.STD ---
Problem List (1) Hyperlipidemia Status: Chronic Qualifiers: (2) Seizure disorder Status: Chronic (3) HTN (hypertension) Status: Chronic Qualifiers: (4) Anemia of chronic disease Status: Chronic (5) Cardiomyopathy Status: Chronic (6) CHF (congestive heart failure) Status: Chronic (7) ESRD (end stage renal disease) on dialysis Status: Chronic History of Present Illness Date of Admission: 02/17/18 Chief Complaint: Shortness of breath,?? Chest heaviness. The patient is a 57 year old M with past medical history as mentioned above presented to the emergency room because of sudden onset of shortness of breath started 2 hours ago before arrival to ED. Today, patient went for hemodialysis and afterwards, he started having shortness of breath at rest, aggravated by activity, associated with what he described as chest heaviness or pressure in the left side of his chest and without relieving factors. He mentioned that he had minimal chest pressure on his left side of the chest but no real chest pain. He denied dizziness, lightheadedness, sweating, syncope or presyncope. He denies nausea or vomiting. He had a history of end-stage renal disease on hemodialysis and he has been going for dialysis on Mondays, Wednesdays and Fridays and he follows up with [facility]. He has a history of cardiomyopathy with ejection fraction of 30% and he has been on beta-blockers, DWAYNE inhibitors and nitrates as well as diuretics. He had a history of chronic systolic CHF which seems to be stable at this time and he has been on standard treatment including blockers, DWAYNE inhibitors, nitrates and diuretics. In the emergency department, his vital signs were stable. His pulse ox was normal on room air. His routine blood work was remarkable for chronic anemia, chronic thrombocytopenia, BUN of 35 and creatinine of 8.28. His potassium was normal. EKG revealed normal sinus rhythm, left bundle branch block which is chronic compared to previous EKGs. First troponin was negative. Chest x-ray showed no acute findings. He is being admitted for atypical chest heaviness/shortness of breath for evaluation. Past Medical History Past Medical History (Chronic Problems): Chronic Problems Hyperlipidemia (Chronic) Seizure disorder (Chronic) HTN (hypertension) (Chronic) Anemia of chronic disease (Chronic) Cardiomyopathy (Chronic) CHF (congestive heart failure) (Chronic) ESRD (end stage renal disease) on dialysis (Chronic) Allergies Penicillins Allergy (Verified 02/17/18 13:45) Unknown sulfamethoxazole [From Bactrim] Allergy (Verified 02/17/18 13:45) Swelling trimethoprim [From Bactrim] Allergy (Verified 02/17/18 13:45) Swelling Home Medications: Ambulatory Orders Medication Instructions Recorded Ergocalciferol [Vitamin D] 50,000 unit PO QMONTH 06/17/13 Losartan Potassium [Cozaar] 50 mg PO DAILY 06/17/13 Allopurinol [Zyloprim] 100 mg PO DAILYCM 03/08/14 B Complex W-C No.20/Folic Acid 1 mg PO DAILY 03/08/14 [Nephrocaps Softgel] Calcium Acetate [Phoslo Gel Cap] 1,334 mg PO TIDCM 03/08/14 Simvastatin [Zocor] 20 mg PO QHS 11/25/15 Isosorbide DN [Isordil] 10 mg PO TID 02/20/16 hydrALAZINE [Apresoline] 25 mg PO TID 02/20/16 Cinacalcet HCl [Sensipar] 60 mg PO DAILY 07/11/16 Levetiracetam [Keppra Xr] 500 mg PO DAILY 08/20/16 hydrOXYzine tablet [Atarax tablet] 50 mg PO TID PRN PRN 08/20/16 Carvedilol [Coreg (Beta Bree)] 12.5 mg PO BID #60 tablet 08/21/16 Loperamide [Imodium] 2 - 4 mg PO Q6H PRN PRN 08/21/16 Furosemide 40 mg PO BID 08/27/16 Dicyclomine HCl [Bentyl] 10 mg PO TIDAC #12 cap 03/28/17 Ondansetron [Zofran Odt] 8 mg PO Q8H PRN PRN #5 07/03/17 Doxycycline Monohydrate 100 mg PO BID #20 capsule 09/07/17 hydrOXYzine tablet [Atarax tablet] 10 mg PO 02/17/18 Surgical History: - - prosthetic right eye, Rt upper arm AVF, right adrenal gland removal for unknown reason Psychiatric History: No pertinent psych hx Smoking Status: Current every day smoker Tobacco Use: Cigarettes, Cigars Alcohol: None Drugs: None - *Family History Maternal History Items: No pertinent history Paternal History Items: No pertinent history Review of Systems Constitutional: Reports: Malaise. Denies: Anorexia, Chills, Fever, Weakness Eyes: Denies: Blurred vision, Double vision, Drainage HEENT: Denies: Difficulty Hearing, Ear Pain, Eye Pain, Nasal Congestion, Sinus Drainage Cardiovascular: Reports: Chest Pressure. Denies: Chest Pain, Edema, Heaviness, Light Headedness, Orthopnea, Paroxysmal Noc. Dyspnea, Syncope Respiratory: Reports: Shortness of Breath, Shortness of breath upon exertion. Denies: Cough, Hemoptysis, Pleuritic Pain, Sputum production, Wheezing Gastrointestinal: Reports: Diarrhea. Denies: Abdominal Pain, Constipation, Nausea, Vomiting Genitourinary: Denies: Dysuria, Frequency, Hematuria Musculoskeletal: Denies: Arm Pain, Back Pain, Foot Pain Skin: Denies: Dryness, Rash Neurological: Denies: Balance problems, Double vision, Change in Speech, Slurred speech, Confusion, Headaches, Incoordination, Numbness Psychiatric: Denies: Anxiety, Depression Endocrine: Denies: Change in Body Habitus, Polydipsia VTE Information - Inpt Only VTE Present on Admission: No VTE Mechan Device Prophylaxis: None VTE Pharm Prophylaxis ordered?: Yes - Physical Exam General: Alert, Oriented x3, Cooperative, No apparent distress HEENT: Atraumatic, PERRLA, EOMI, Normocephalic Oral: Moist Mucosa, No Gingival or Mucosal Lesions/ Ulcerations Neck: Supple, No JVD, Negative Carotid Bruits, Trachea Midline, Thyroid Normal Size and Texture Lungs: Clear to auscultation, Normal air movement, No rhonchi, No wheeze, No rales Cardiovascular: Regular rate, Regular Rhythm, Normal S1, Normal S2, PMI Normal Abdomen: Bowel Sounds Present, Soft, Non Tender, Non-Distended, No Hepato-splenomegaly Extremities: No clubbing, No cyanosis, No edema Skin: No rashes, No breakdown Lymphatic: No Cervical, Supraclavicular, or Inguinal Adenopathy Neurological: Cranial nerves II-XII grossly intact, Motor Exam 5/5 strength throughout Psych/Mental Status: Normal Affect, Appropriate, Alert and oriented to time, place, person, mood and affect Vital Signs Temp Pulse Resp BP Pulse Ox 97.7 F L 81 26 H 128/81 H 97 02/17/18 13:24 02/17/18 16:06 02/17/18 16:06 02/17/18 16:06 02/17/18 16:06 Oxygen Delivery Method Room Air Weight: 170 lb Body Mass Index (BMI) 25.1 Finger Stick Blood Glucose 143 Laboratory Tests Past 24 Hrs 02/17/18 02/17/18 14:21 14:21 WBC 4.1 L RBC 3.85 L Hgb 11.7 L Hct 35.5 L MCV 92.2 MCH 30.4 MCHC 33.0 RDW 13.1 RDW Differential 43.8 Plt Count 138 L MPV 10.8 Immature Gran % (Auto) 0.200 Neut % (Auto) 51.5 Lymph % (Auto) 34.5 [place] % (Auto) 8.7 Eos % (Auto) 4.1 Baso % (Auto) 1.0 Absolute Neuts (auto) 2.1 Absolute Lymphs (auto) 1.42 Total Counted Not Reportable Sodium 136 Potassium 4.4 Chloride 91 L Carbon Dioxide 39.0 H Anion Gap 6 BUN 35 H Creatinine 8.28 H* Estim Creat Clear Calc 9.72 Est GFR (MDRD) Af Amer 9 L Est GFR (MDRD) Non-Af 7 L BUN/Creatinine Ratio 4.2 L Glucose 88 Calcium 9.3 Troponin I 0.027 Clinical Impression(s) from Imaging Studies Chest X-Ray 02/17/18 14:24 IMPRESSION: Hyperinflation. The lungs are clear. Electronically Signed: Russ Elias MD at 15:13 EST Tel [phone], Service support , Assessment/Plan This is a 57 years old male patient presented to the emergency room because of sudden onset shortness of breath and questionable chest heaviness and he is being admitted for evaluation. #1 atypical chest heaviness/shortness of breath: Risk factors are hypertension, hyperlipidemia, history of CHF and ESRD. His EKG revealed normal sinus rhythm with left bundle branch block, no acute ST elevation. Left bundle branch work is a chronic finding, noted on previous EKGs. First troponin is negative. Chest x-ray showed no acute findings. Vital signs are stable. Pulse ox is maintained on room air. Patient had a stress test on August, that was negative for stress-induced myocardial ischemia. Plan: Admit to PCU for observation, cardiac monitoring, serial cardiac enzymes, repeat EKG tomorrow morning, nuclear stress test tomorrow morning if cardiac enzymes are negative, nitroglycerin sublingual as needed, Tylenol as needed, IV antiemetics. #2 ESRD and hemodialysis: Underwent hemodialysis today. BUN, creatinine and potassium are stable. Plan to resume hemodialysis on his regular days, no indication for urgent hemodialysis. #3 cardiomyopathy, unspecified/chronic systolic CHF: Clinically stable, compensated. His ejection fraction was 32% on stress test on August,. Continue beta-blockers, losartan, statins and nitrates when home medication list updated. #4 hypertension: Blood pressure stable, continue medications when home medication list updated. #5 seizure disorder: Stable, continue Keppra. #6 hyperlipidemia: Continue statins. #7 chronic anemia/chronic thrombocytopenia: Both hemoglobin and platelet count are stable at his baseline. No indication for transfusion and no evidence of active bleeding. #8 DVT prophylaxis: Subcu heparin. This note was generated with [employer] dictation software. It may contain incorrect words, spelling, and punctuation that were not noted in checking the note before signing. Code Visit OBSV E&M: [id number] Initial observation care L3
[2018-02-17] MEDS: Acetaminophen 325 MG Tablet 650 MG PO ×2 (17:06→23:12)
--- NOTE | 2018-02-17 18:16 | EKG12_ITS ---
Test Reason : CP ADMIT EKG Blood Pressure : / mmHG Vent. Rate : 083 BPM Atrial Rate : 083 BPM P-R Int : 168 ms QRS Dur : 168 ms QT Int : 476 ms P-R-T Axes : 067 051 214 degrees QTc Int : 559 ms Normal sinus rhythm Left bundle branch block Abnormal ECG Confirmed by RUBIO DINH, MIRIAM ([id number]), editor department LEVI ROSE ([id number]) on 02/21/2018 11:42:14 AM Referred By: JIM Confirmed By:IMRIAM BERGERON MD
[2018-02-17] MEDS: Heparin Injection (Vial) 5,000 UNIT/ML VIAL 5000 UNIT SC (21:30)
[2018-02-18] VITALS (20 sets, daily range): BP systolic 107–156; BP diastolic 61–94; PULSE 69–100; RESP 16–18; TEMP 36.6–37.5; O2SAT 95–100
--- NOTE | 2018-02-18 05:55 | EKG12_ITS ---
Test Reason : AM EKG Blood Pressure : / mmHG Vent. Rate : 077 BPM Atrial Rate : 077 BPM P-R Int : 174 ms QRS Dur : 164 ms QT Int : 484 ms P-R-T Axes : 068 037 206 degrees QTc Int : 547 ms Normal sinus rhythm Left bundle branch block Abnormal ECG Confirmed by RUBIO DINH, MIRIAM ([id number]), photograph editor LEVI ROSE ([id number]) on 02/21/2018 11:29:58 AM Referred By: DR FERNANDEZ Confirmed By:MIRIAM BERGERON MD
[2018-02-18 05:57] LABS: Absolute Lymphocyte Count 2.41 X10^3/ul (0.83-4.51); Absolute Neutrophil Count 1.4 X10^3/uL (2.0-7.7); Basophil# 0.03 X10^3/uL; Basophil% 0.7 % (0-1); Eosinophil# 0.17 X10^3/uL; Eosinophils% 3.9 % (0-5); Hemoglobin 12.5 g/dl (13.0-16.5); Lymphocyte # 2.41 X10^3/ul (4.0); Lymphocyte % 55.4 % (19-41); Mean Corp Hgb Conc 32.9 g/gl (32-36); Mean Corpuscular Hgb 30.4 pg (27.0-32.0); Mean Corpuscular Volume 92.5 fL (80-94); Mean Platelet Vol. 10.2 fl (6.2-12.0); Monocyte# 0.34 X10^3/uL; Monocyte% 7.8 % (0-10); Neutrophil # 1.39 X10^3/uL (2.7-7.7); Platelet Count 121 K/mm3 (150-450); RBC Distribution Width CV 13.5 % (11.6-14.6); RBC Distribution Width SD 45.4 fl (35.1-43.9); Red Blood Count 4.11 M/mm3 (4.6-6.2); White Blood Count 4.4 K/mm3 (4.4-11.0)
[2018-02-18 06:00] LABS: Partial Thromboplast Time 37.7 Seconds (24.1-36.2); Prothrombin Time (Protime)PT. 13.5 SECONDS (11.7-14.9)
[2018-02-18 06:02] LABS: POSITIVE COUNT NO; POSITIVE DIFFERENTIAL NO; POSITIVE MORPHOLOGY NO
[2018-02-18 06:10] LABS: Anion Gap 12 (5-15); BUN 47 mg/dL (7-18); BUN/Creat Ratio 4.4 RATIO (10-20); Chloride 94 mmol/L (98-107); EST Glomerular Filtration Rate 5 mL/min (>60); Est Glom Filt Rate - Afr Amer 7 mL/min (>60); Glucose 86 mg/dL (74-106); Potassium 5.3 mmol/L (3.5-5.1); Sodium Level 135 mmol/L (136-145)
--- NOTE | 2018-02-18 10:15 | DCINST_ITS ---
You will use the following diet at home:: Calorie/Carbohydrate Controlled (specify 1200, 1400, etc), Renal (restricted protein/sodium) Your food should be the consistency of: Regular Discharge Activity: Return to Normal Activity, May not drive while taking narcotic pain medications. Weight Bearing Status: Weight bearing as tolerated Call your doctor if you observe: Fever of 101 or Higher, Shortness of breath, Dizziness, Fainting spells, Chest pain, Increased palpitations (irregular heartbeat), Uncontrolled pain Allergies/Adverse Reactions: Allergies Penicillins Allergy (Verified 02/17/18 13:45) Unknown sulfamethoxazole [From Bactrim] Allergy (Verified 02/17/18 13:45) Swelling trimethoprim [From Bactrim] Allergy (Verified 02/17/18 13:45) Swelling Medications to take at Discharge Ergocalciferol [Vitamin D] 50,000 unit PO QMONTH 06/17/13 Losartan Potassium [Cozaar] 50 mg PO DAILY 06/17/13 Allopurinol [Zyloprim] 100 mg PO DAILYCM 03/08/14 B Complex W-C No.20/Folic Acid [Nephrocaps Softgel] 1 mg PO DAILY 03/08/14 Calcium Acetate [Phoslo Gel Cap] 1,334 mg PO TIDCM 03/08/14 Simvastatin [Zocor] 20 mg PO QHS 11/25/15 Isosorbide DN [Isordil] 10 mg PO TID 02/20/16 hydrALAZINE [Apresoline] 25 mg PO TID 02/20/16 Cinacalcet HCl [Sensipar] 60 mg PO DAILY 07/11/16 Levetiracetam [Keppra Xr] 500 mg PO DAILY 08/20/16 hydrOXYzine tablet [Atarax tablet] 50 mg PO TID PRN PRN 08/20/16 Carvedilol [Coreg (Beta Bree)] 12.5 mg PO BID #60 tablet 08/21/16 Loperamide [Imodium] 2 - 4 mg PO Q6H PRN PRN 08/21/16 Furosemide 40 mg PO BID 08/27/16 Dicyclomine HCl [Bentyl] 10 mg PO TIDAC #12 cap 03/28/17 Ondansetron [Zofran Odt] 8 mg PO Q8H PRN PRN #5 07/03/17 Doxycycline Monohydrate 100 mg PO BID #20 capsule 09/07/17 hydrOXYzine tablet [Atarax tablet] 10 mg PO 02/17/18 traMADol [Ultram] 50 mg PO Q8H PRN PRN 7 Days #20 tab 02/18/18 The following prescriptions were given: traMADol [Ultram] 50 mg PO Q8H PRN PRN 7 Days #20 tab PRN Reason: hip/ back pain Primary Care Physician: Sesar Quiñones MD [Primary Care Provider] - Please follow up with your Primary Care Physician in: 1 week. Test Results: Test results from this visit will be discussed in further detail at your follow- up appointment, if applicable.
--- NOTE | 2018-02-18 11:46 | STRESSREP ---
Stress Test Report Date: 02/18/2018 Procedure: Pharmacologic stress nuclear imaging study Indications: Chest pain; shortness of breath; cardiomyopathy Consent: Per the patient Procedure: The patient underwent pharmacologic (Regadenoson) evaluation with a peak heart rate of 103 beats per minute (63 predicted maximal heart rate) and a peak blood pressure of 108/76 mmHg. The baseline ECG demonstrated normal sinus rhythm; left bundle branch block pattern. The peak pharmacologic ECG demonstrated continued left bundle branch block pattern. [There were no cardiac dysrhythmias pretest, during pharmacologic infusion, or recovery]. [There was no complaint of chest discomfort during pharmacologic infusion or recovery]. The examination was discontinued secondary to completion of protocol. Impression: 1. Pharmacologic (Regadenoson) evaluation 2. Peak pharmacologic ECG with continued left bundle branch block pattern and considered indeterminant secondary to the underlying left bundle branch block pattern. 3. [There were no cardiac dysrhythmias pretest, during pharmacologic infusion, or recovery]. 4. Nuclear images pending Myocardial perfusion imaging study: Technique: The patient was injected with 10.6 millicuries of technetium 99m Cardiolite and subsequently rest SPECT Cardiolite nuclear imaging was obtained in the horizontal long, vertical long, and short axis views. The patient underwent pharmacologic (Regadenoson) evaluation with a peak heart rate of 103 beats per minute (63 % percent predicted maximal heart rate) and a peak blood pressure of 108/76 mmHg. The patient was injected with 32.1 millicuries of technetium 99m Cardiolite and subsequently stress SPECT Cardiolite nuclear imaging was obtained in the horizontal long, vertical long, and short axis views. A gated Cardiolite study at peak stress was obtained. Interpretation: Rest and stress SPECT Cardiolite nuclear imaging status post realignment, normalization, and attenuation correction demonstrate an area of diminished tracer uptake near the apical segments, however, status post stress there is notation of diminished tracer uptake in the mid to distal anterior segments/anterior apical segments. There is diminished end-systolic thickening and brightening. The gated Cardiolite study demonstrates diminished myocardial thickening and end were wall motion. The reported LVEF is 27 %. Impression: 1. Rest and stress SPECT Cardiolite nuclear imaging demonstrate myocardial perfusion changes appearing compatible with an element of physiologic apical thinning and appearing compatible with an area of stress-induced myocardial ischemia in portions of the mid to distal anterior and anterior apical segments. 2. The gated Cardiolite study reports an LVEF of 27%. This note was generated with [employer] software. It may contain incorrect words, spelling, and punctuation that were not noted in checking the note before signing.
--- NOTE | 2018-02-18 11:51 | STRESSREP_ITS ---
Stress Test Report Date: 02/18/2018 Procedure: Pharmacologic stress nuclear imaging study Indications: Chest pain; shortness of breath; cardiomyopathy Consent: Per the patient Procedure: The patient underwent pharmacologic (Regadenoson) evaluation with a peak heart rate of 103 beats per minute (63 predicted maximal heart rate) and a peak blood pressure of 108/76 mmHg. The baseline ECG demonstrated normal sinus rhythm; left bundle branch block pattern. The peak pharmacologic ECG demonstrated continued left bundle branch block pattern. [There were no cardiac dysrhythmias pretest, during pharmacologic infusion, or recovery]. [There was no complaint of chest discomfort during pharmacologic infusion or recovery]. The examination was discontinued secondary to completion of protocol. Impression: 1. Pharmacologic (Regadenoson) evaluation 2. Peak pharmacologic ECG with continued left bundle branch block pattern and considered indeterminant secondary to the underlying left bundle branch block pattern. 3. [There were no cardiac dysrhythmias pretest, during pharmacologic infusion, or recovery]. 4. Nuclear images pending Myocardial perfusion imaging study: Technique: The patient was injected with 10.6 millicuries of technetium 99m Cardiolite and subsequently rest SPECT Cardiolite nuclear imaging was obtained in the horizontal long, vertical long, and short axis views. The patient underwent pharmacologic (Regadenoson) evaluation with a peak heart rate of 103 beats per minute (63 % percent predicted maximal heart rate) and a peak blood pressure of 108/76 mmHg. The patient was injected with 32.1 millicuries of technetium 99m Cardiolite and subsequently stress SPECT Cardiolite nuclear imaging was obtained in the horizontal long, vertical long, and short axis views. A gated Cardiolite study at peak stress was obtained. Interpretation: Rest and stress SPECT Cardiolite nuclear imaging status post realignment, normalization, and attenuation correction demonstrate an area of diminished tracer uptake near the apical segments, however, status post stress there is notation of diminished tracer uptake in the mid to distal anterior segments/anterior apical segments. There is diminished end-systolic thickening and brightening. The gated Cardiolite study demonstrates diminished myocardial thickening and end were wall motion. The reported LVEF is 27 %. Impression: 1. Rest and stress SPECT Cardiolite nuclear imaging demonstrate myocardial perfusion changes appearing compatible with an element of physiologic apical th inning and appearing compatible with an area of stress-induced myocardial ischemia in portions of the mid to distal anterior and anterior apical segments. 2. The gated Cardiolite study reports an LVEF of 27%. This note was generated with [employer] software. It may contain incorrect words, spelling, and punctuation that were not noted in checking the note before signing.
--- NOTE | 2018-02-18 12:26 | PN_ITS ---
Subjective: Chief complaint: Follow-up after admission for shortness of breath, chest heaviness and probable unstable angina. Patient seen and examined today. No acute events overnight. He denies any more shortness of breath or chest heaviness. He did report that during the stress test, he felt minimally short of breath. His vital signs are stable. - Physical Exam General: Alert, Oriented x3, Cooperative, No apparent distress HEENT: Atraumatic, PERRLA, EOMI, Normocephalic Oral: Moist Mucosa, No Gingival or Mucosal Lesions/ Ulcerations Neck: Supple, No JVD, Negative Carotid Bruits, Trachea Midline, Thyroid Normal Size and Texture Lungs: Clear to auscultation, No rhonchi, No wheeze, No rales, Diminished Cardiovascular: Regular rate, Regular Rhythm, Normal S1, Normal S2, PMI Normal Abdomen: Bowel Sounds Present, Soft, Non Tender, Non-Distended, No Hepato- splenomegaly Extremities: No clubbing, No cyanosis, No edema Skin: No rashes, No breakdown Lymphatic: No Cervical, Supraclavicular, or Inguinal Adenopathy Neurological: Cranial nerves II-XII grossly intact, Neuro grossly intact Psych/Mental Status: Normal Affect, Appropriate, Alert and oriented to time, place, person, mood and affect Vital Signs Temp Pulse Resp BP Pulse Ox 99.5 F H 84 18 107/72 98 02/18/18 10:03 02/18/18 10:03 02/18/18 10:03 02/18/18 10:03 02/18/18 10:03 Oxygen Delivery Method Room Air Weight: 153 lb 14.122 oz Body Mass Index (BMI) 22.7 Finger Stick Blood Glucose 143 Intake and Output for Last 24 Hours 02/16/18 02/17/18 02/18/18 23:59 23:59 23:59 Intake Total 340 / 340 Balance 340 / 340 Laboratory Tests Past 24 Hrs 02/17/18 02/17/18 02/17/18 14:21 14:21 18:15 WBC 4.1 L RBC 3.85 L Hgb 11.7 L Hct 35.5 L MCV 92.2 MCH 30.4 MCHC 33.0 RDW 13.1 RDW Differential 43.8 Plt Count 138 L MPV 10.8 Immature Gran % (Auto) 0.200 Neut % (Auto) 51.5 Lymph % (Auto) 34.5 [place] % (Auto) 8.7 Eos % (Auto) 4.1 Baso % (Auto) 1.0 Absolute Neuts (auto) 2.1 Absolute Lymphs (auto) 1.42 Total Counted Not Reportable PT INR APTT Sodium 136 Potassium 4.4 Chloride 91 L Carbon Dioxide 39.0 H Anion Gap 6 BUN 35 H Creatinine 8.28 H* Estim Creat Clear Calc 9.72 Est GFR (MDRD) Af Amer 9 L Est GFR (MDRD) Non-Af 7 L BUN/Creatinine Ratio 4.2 L Glucose 88 Calcium 9.3 Troponin I 0.027 0.030 02/17/18 02/18/18 02/18/18 21:02 05:18 05:18 WBC 4.4 RBC 4.11 L Hgb 12.5 L Hct 38.0 L MCV 92.5 MCH 30.4 MCHC 32.9 RDW 13.5 RDW Differential 45.4 H Plt Count 121 L MPV 10.2 Immature Gran % (Auto) 0.200 Neut % (Auto) 32.0 L Lymph % (Auto) 55.4 H [place] % (Auto) 7.8 Eos % (Auto) 3.9 Baso % (Auto) 0.7 Absolute Neuts (auto) 1.4 L Absolute Lymphs (auto) 2.41 Total Counted Not Reportable PT 13.5 INR 1.0 APTT 37.7 H Sodium Potassium Chloride Carbon Dioxide Anion Gap BUN Creatinine Estim Creat Clear Calc Est GFR (MDRD) Af Amer Est GFR (MDRD) Non-Af BUN/Creatinine Ratio Glucose Calcium Troponin I 0.035 02/18/18 05:18 WBC RBC Hgb Hct MCV MCH MCHC RDW RDW Differential Plt Count MPV Immature Gran % (Auto) Neut % (Auto) Lymph % (Auto) [place] % (Auto) Eos % (Auto) Baso % (Auto) Absolute Neuts (auto) Absolute Lymphs (auto) Total Counted PT INR APTT Sodium 135 L Potassium 5.3 H Chloride 94 L Carbon Dioxide 29.0 Anion Gap 12 BUN 47 H Creatinine 10.60 H* Estim Creat Clear Calc 7.50 Est GFR (MDRD) Af Amer 7 L Est GFR (MDRD) Non-Af 5 L BUN/Creatinine Ratio 4.4 L Glucose 86 Calcium 8.0 L Troponin I Medical Necessity - Tobacco Use Smoking Status: Current every day smoker Tobacco Use: Cigarettes, Cigars Assessment/Plan This is a 57 years old male patient presented to the emergency room because of sudden onset shortness of breath and questionable chest heaviness and he is being admitted for evaluation. #1 atypical chest heaviness/probable unstable angina: With abnormal stress test. Repeat EKG revealed left bundle branch block which is chronic, no acute changes. Troponin has been negative. He underwent nuclear stress test today that revealed myocardial perfusion changes compatible with element of physiologic apical thinning and appearing compatible with area of stress-induced myocardial ischemia in the portion of the mid to distal anterior and anterior apical segment, ejection fraction was 27%. Discussed with cardiology, plan to give him 1 dose of Brilinta, aspirin 325 mg p.o. x1, cardiology consult, possible cardiac catheterization later today. #2 mild hyperkalemia: Today's potassium is 5.3. No EKG changes related to hyperkalemia. Plan to give 1 dose of Kayexalate, repeat potassium later today, repeat BMP tomorrow morning. #3 ESRD and hemodialysis: Today's BUN is 47, creatinine is 10.6, that is up from admission levels. Potassium is 5.3. Plan as above, nephrology consult. #4 cardiomyopathy, unspecified/chronic systolic CHF: Clinically stable, compensated. His ejection fraction was 32% on stress test on August,. Chest today revealed ejection fraction of 27%. Continue beta-blockers, losartan, statins and nitrates when home medication list updated. #5 hypertension: Blood pressure stable, continue medications when home medication list updated. #6 seizure disorder: Stable, continue Keppra. #7 hyperlipidemia: Continue statins. #8 chronic anemia/chronic thrombocytopenia: Both hemoglobin and platelet count are stable at his baseline. No indication for transfusion and no evidence of active bleeding. #9 DVT prophylaxis: Subcu heparin. This note was generated with [employer] dictation software. It may contain incorrect words, spelling, and punctuation that were not noted in checking the note before signing. Code Visit OBSV E&M: 81267 Subsequent observation care L2
[2018-02-18] MEDS: traMADol 50 MG Tablet PO (12:34)
[2018-02-18] MEDS: Aspirin 325 MG Tablet PO (12:35)
[2018-02-18] MEDS: TICAGRELOR 90 MG TABLET 180 MG PO (12:37)
--- NOTE | 2018-02-18 13:56 | PCM.CONS.C ---
Problem List (1) Chest pain Status: Acute (2) Abnormal stress test Status: Acute (3) Cardiomyopathy Status: Chronic (4) CHF (congestive heart failure) Status: Chronic (5) Hyperlipidemia Status: Chronic Qualifiers: (6) HTN (hypertension) Status: Chronic Qualifiers: (7) ESRD (end stage renal disease) on dialysis Status: Chronic Reason for Consult Date of Consultation: 02/18/18 History of Present Illness: The patient is a 57 year old -Citizen Of [place] male with a past medical history of an underlying cardiomyopathy, chronic systolic CHF, hyperlipidemia, hypertension who is now referred for evaluation of chest discomfort and an abnormal pharmacologic stress nuclear imaging study. The patient notes that during dialysis he experienced chest heaviness/pressure as well as worsening shortness of breath and dyspnea. He notes at times he has had similar type symptoms in the past. He also notes with dialysis he has episodes where he feels warm or may become diaphoretic. He believes these episodes have been related to low blood pressure requiring IV fluid replacement. However based upon his concerns he was brought to the hospital for further evaluation and care. He is undergone cardiac enzyme levels which have been gated. His ECG has demonstrated an underlying left bundle branch block pattern. He underwent a pharmacologic stress nuclear imaging study. Based upon the findings he had what appeared to be an area of stress-induced myocardial ischemia in portions of the mid to distal anterior and anterior apical segments with a gated LVEF of 27%. He has been referred to cardiology for consideration for diagnostic cardiac catheterization. [] Past Medical History Allergies/Adverse Reactions: Allergies Penicillins Allergy (Verified 02/17/18 13:45) Unknown sulfamethoxazole [From Bactrim] Allergy (Verified 02/17/18 13:45) Swelling trimethoprim [From Bactrim] Allergy (Verified 02/17/18 13:45) Swelling Home Medications: Ambulatory Orders Medication Instructions Recorded Calcium Acetate [Phoslo Gel Cap] 1,334 mg PO TIDCM 03/08/14 hydrALAZINE [Apresoline] 25 mg PO TID 02/20/16 Loperamide [Imodium] 2 - 4 mg PO Q6H PRN PRN 08/21/16 Allopurinol [Zyloprim] 100 mg PO DAILYCM 02/18/18 Diltiazem CD [Cardizem CD] 120 mg PO DAILY 02/18/18 Tamsulosin HCl [Flomax] 0.4 mg PO DAILY 02/18/18 traMADol [Ultram] 50 mg PO Q8H PRN PRN 7 Days #20 tab 02/18/18 Past Medical History (Chronic Problems): Chronic Problems Hyperlipidemia (Chronic) Seizure disorder (Chronic) HTN (hypertension) (Chronic) Anemia of chronic disease (Chronic) Cardiomyopathy (Chronic) CHF (congestive heart failure) (Chronic) ESRD (end stage renal disease) on dialysis (Chronic) Surgical History: - - prosthetic right eye, Rt upper arm AVF, right adrenal gland removal for unknown reason Psychiatric History: No pertinent psych hx - *Family History Maternal History Items: No pertinent history Paternal History Items: No pertinent history Smoking Status: Current every day smoker Tobacco Use: Cigarettes, Cigars Alcohol: None Drugs: None Review of Systems - Review of Systems General: Denies: Fever, Night Sweats, Fatigue Cardiovascular: Reports: Chest Discomfort, Chest Discomfort at Rest, Shortness of Breath, Shortness of Breath at Rest, Shortness of Breath with Exertion. Denies: Orthopnea, PND, Peripheral Edema, Palpitations, Lightheadedness, Dizziness, Near Syncope, Syncope Respiratory: Reports: Shortness of Breath. Denies: Cough, Sputum Production, Hemoptysis Gastrointestinal: Denies: Hematemesis, Hematochezia, Melena Genitourinary: Denies: Dysuria, Hematuria Skin: Denies: Rash Subjectve: This is a 57-year-old -Citizen Of [place] male who appears to be resting comfortably at the moment in no acute distress. Objective: Vital Signs Temp Pulse Resp BP Pulse Ox 99.5 F H 84 18 107/72 98 02/18/18 10:03 02/18/18 10:03 02/18/18 10:03 02/18/18 10:03 02/18/18 10:03 Oxygen Delivery Method Room Air Weight: 153 lb 14.122 oz Body Mass Index (BMI) 22.7 Finger Stick Blood Glucose 143 Intake and Output for Last 24 Hours 02/16/18 02/17/18 02/18/18 23:59 23:59 23:59 Intake Total 340 / 340 Balance 340 / 340 General: Awake, Alert, Oriented x 3, Cooperative, No Acute Distress HEENT: Atraumatic, Normocephalic Oral: Moist Mucosa Neck: Supple, Good ROM, No JVD Lungs: Clear to auscultation Cardiovascular: Regular Rhythm, Normal S1, Normal S2 Murmur Murmur: Grade 2/6, Soft, Mid Systolic, LLSB, LVOT Vascular: No Carotid Bruits, - - Right upper extremity: Positive thrill/bruit Abdomen: Bowel Sounds Present, Soft, Non Tender, No HSM, No Organomegaly Extremities: No Cyanosis, No Clubbing, No edema Psych/Mental Status: Appropriate 02/17/18 14:21: WBC 4.1 L, RBC 3.85 L, Hgb 11.7 L, Hct 35.5 L, MCV 92.2, MCH 30.4, MCHC 33.0, RDW 13.1, RDW Differential 43.8, Plt Count 138 L, MPV 10.8, Immature Gran % (Auto) 0.200, Neut % (Auto) 51.5, Lymph % (Auto) 34.5, [place] % (Auto) 8.7, Eos % (Auto) 4.1, Baso % (Auto) 1.0, Absolute Neuts (auto) 2.1, Total Counted Not Reportable 02/17/18 14:21: Sodium 136, Potassium 4.4, Chloride 91 L, Carbon Dioxide 39.0 H, Anion Gap 6, BUN 35 H, Creatinine 8.28 H*, Est GFR (MDRD) Af Amer 9 L, Est GFR (MDRD) Non-Af 7 L, BUN/Creatinine Ratio 4.2 L, Glucose 88, Calcium 9.3, Troponin I 0.027 02/17/18 18:15: Troponin I 0.030 02/17/18 21:02: Troponin I 0.035 02/18/18 05:18: WBC 4.4, RBC 4.11 L, Hgb 12.5 L, Hct 38.0 L, MCV 92.5, MCH 30.4, MCHC 32.9, RDW 13.5, RDW Differential 45.4 H, Plt Count 121 L, MPV 10.2, Immature Gran % (Auto) 0.200, Neut % (Auto) 32.0 L, Lymph % (Auto) 55.4 H, [place] % (Auto) 7.8, Eos % (Auto) 3.9, Baso % (Auto) 0.7, Absolute Neuts (auto) 1.4 L, Total Counted Not Reportable 02/18/18 05:18: PT 13.5, INR 1.0, APTT 37.7 H 02/18/18 05:18: Sodium 135 L, Potassium 5.3 H, Chloride 94 L, Carbon Dioxide 29.0, Anion Gap 12, BUN 47 H, Creatinine 10.60 H*, Est GFR (MDRD) Af Amer 7 L, Est GFR (MDRD) Non-Af 5 L, BUN/Creatinine Ratio 4.4 L, Glucose 86, Calcium 8.0 L Rhythm: Sinus rhythm EKG: This rhythm; left bundle branch block pattern ECHO: 2015: Mildly dilated left ventricle; moderately severe global left ventricular systolic dysfunction with an estimated LVEF of 30%; moderate left atrial enlargement; mild right atrial enlargement; mild papillary muscle dysfunction of the mitral valve with mild MR; mild to moderate TR; trivial AI/PI; trivial pericardial effusion with no echocardiographic indications of cardiac tamponade physiology; estimated RV systolic pressure 48 mmHg; 2D echocardiographic images obtained of the left ventricle 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 Chest pain The patient did experience chest discomfort. Based on his description it would be concerning for an angina pectoris equivalent. He is undergone evaluation with cardiac enzymes which have been negative thus far. His ECG demonstrates an underlying left bundle branch block pattern. His pharmacologic stress nuclear imaging study suggests an area compatible stress-induced myocardial ischemia in the anterior apical distribution with diminished LV systolic function. He has been referred for further evaluation with diagnostic cardiac catheterization. The procedure and risks were discussed with the patient. He was agreeable to this approach. In the interim he will continue medical therapy. He has received additional medical therapy with aspirin and antiplatelet therapy with Brilinta. 2. Abnormal pharmacologic stress nuclear imaging study Again the patient does have the aforementioned findings. Thus there is concern of underlying CAD. The patient will undergo further evaluation with diagnostic cardiac catheterization. If this is unremarkable then perhaps his changes are related to his history of a left bundle branch block pattern and/or his report of a cardiomyopathy. 3. Hyperlipidemia The patient should continue lipid evaluation and care as deemed appropriate taking into consideration his other medical issues. 4. Hypertension Patient's blood pressure will need to be monitored. It is reported as fluctuating in and around the time of dialysis, etc. 5. End-stage renal disease on chronic hemodialysis The patient will continue under the care of nephrology. Comment: The above was discussed and reviewed with the patient. He was agreeable to this approach. The patient's case was also discussed with Dr. Rod. This note was generated with [employer] software. It may contain incorrect words, spelling, and punctuation that were not noted in checking the note before signing.
--- NOTE | 2018-02-18 15:14 | CL.D_ITS ---
Patient Name: REA HART Study Date: 02/18/2018 Performing: Rasta Kitchen MD Ht: 68.89 inches 175 cm : 1960 Wt: 154.32 lbs 70 kg Age: 57 Gender: male BSA: 1.85 PROCEDURE(S) PERFORMED [id number] CLINICAL PROFILE AND INDICATIONS Indications: Suspected CAD, LV Dysfunction, Cardiomyopathy Heart Failure: NYHA Class: 3, Newly Diagnosed: No, Heart Failure Type: Systolic Stress/Imaging Stress Test w/SPECT MPI: Yes Result: PositiveStress Test with SPECT MPI: Positive Angina Classification Anginal Classification w/in 2 Weeks: CCS III CAD Presentations: Unstable angina. CONCLUSIONS Elevated Left Ventricular End Diastolic Pressure Normal coronary arteries RECOMMENDATIONS Medical therapy DESCRIPTION OF PROCEDURE The patient arrived to the procedure lab. The risks and benefits of the procedure as well as a full d escription of our services here and current unavailability of surgical backup were fully explained to the patient and/or their significant other prior to the catheterization. The Timeout was completed, verifying the correct patient and procedure. The patient's procedural site was prepped and draped in the usual fashion. Local anesthetic was given subcutaneously to right groin region with Lidocaine 2%. Using a modified Seldinger technique, arterial access was obtained via the right femoral artery, a 4 Fr sheath was inserted Left Coronary Artery selective angiography was performed in multiple views us ing a 4 Fr. JL4 catheter. Right Coronary Artery selective angiography was then performed in multiple views using a 4 Fr. JR4 catheter. Left Ventriculography was performed in [place] projection using a 4 Fr. Pigtail catheter. LV to AO pullback pressures were then recorded.The arterial sheath was pulled and manual compression applied until hemostasis is achieved. CORONARY ANGIOGRAPHY DOMINANCE: Left Dominant LEFT HEART ASSESSMENT Left Ventricular Ejection Fraction: Not assessed Elevated Left Ventricular End Diastolic Pressure LVEDP: 16 mmHg LEFT MAIN: Angiographically normal LEFT ANTERIOR DECENDING ARTERY: Angiographically normal CIRCUMFLEX ARTERY: Angiographically normal RIGHT CORONARY ARTERY: Angiographically normal COMPLICATIONS No Complications PROCEDURE MEDICATIONS Versed 1 mg IV Oxygen: 2 L/min via nasal cannula SUMMARY OF HEMODYNAMIC DATA Time AIR REST ECG 14:23:59 AO 147/73 (102) SA 14:37:03 LV 150/1, 15 14:47:04 LV 144/0, 16 14:47:11 LVp 155/1, 16 14:47:19 AOp 150/80 (108) 14:47:24 Signed By Rasta Kitchen MD On 02/18/2018 15:13:56 Rasta Kitchen MD
--- NOTE | 2018-02-18 15:38 | CASEMGMT ---
According to the [facility] site, the following are in-network tertiary facilities: [facility], [facility], [facility], [facility], [facility], [facility], and . Liz NUNEZ CM
[2018-02-18] MEDS: Calcium Acetate 667 MG Capsule 1334 MG PO (16:28)
[2018-02-18] MEDS: hydrALAZINE 25 MG Tablet PO ×2 (16:28→23:04)
--- NOTE | 2018-02-18 16:45 | PCM.CONS.R ---
Problem List (1) ESRD (end stage renal disease) on dialysis Status: Chronic Consultation - Renal 02/18/18 PCP/ Referring MD: Requesting physician: Dr Rod Primary care physician: Sesar Quiñones Reason for Consultation:: ESRD - History of Present Illness History of Present Illness: The patient is a 57 year old M ESRD on HD MWF schedule. last HD was saturday. admitted with chest pain, stress test came back positive. scheduled for angio tomorrow. currently pain free - Allergies Allergies: Allergies Penicillins Allergy (Verified 02/17/18 13:45) Unknown sulfamethoxazole [From Bactrim] Allergy (Verified 02/17/18 13:45) Swelling trimethoprim [From Bactrim] Allergy (Verified 02/17/18 13:45) Swelling - Current Medications Current Medications: Current Medications Acetaminophen (Tylenol) 650 mg PO Q6H PRN PRN PRN Reason: fever, headache, pain Last Admin: 02/17/18 23:12 Dose: 650 mg [facility] Calcium Acetate (Phoslo Gel Cap) 1,334 mg PO TIDCM [facility] Last Admin: 02/18/18 16:28 Dose: 1,334 mg Diltiazem HCl (Cardizem Cd) 120 mg PO DAILY [facility] Heparin Sodium (Beef Lung) (Heparin 500 Unit/5 Ml (100/Ml)) 500 unit IV UD PRN PRN Reason: HEPARIN FLUSH Heparin Sodium (Porcine) (Heparin Na) 5,000 unit SC Q8 [facility] Last Admin: 02/18/18 16:19 Dose: Not Given Hydralazine HCl (Apresoline) 25 mg PO TID [facility] Last Admin: 02/18/18 16:28 Dose: 25 mg Sodium Chloride () 1,000 mls @ 0 mls/hr IV .Q0M [facility] Labetalol HCl (Trandate) 5 mg IV X1 PRN PRN Reason: SBP > 160 prior to sheath pull Magnesium Hydroxide (Milk Of Magnesia) 30 ml PO DAILY PRN PRN Reason: Constipation Nitroglycerin (Nitrostat) 0.4 mg SUBLINGUAL Q5M PRN PRN Reason: CHEST PAIN Ondansetron HCl (Zofran) 4 mg IV Q8H PRN PRN PRN Reason: NAUSEA/VOMITING Sodium Chloride () 5 - 15 ml IV UD PRN PRN Reason: SALINE FLUSH Tamsulosin HCl (Flomax) 0.4 mg PO DAILY [facility] Tramadol HCl (Ultram) 50 mg PO TID PRN PRN PRN Reason: MODERATE PAIN (4-5/10) Last Admin: 02/18/18 12:34 Dose: 50 mg - Past Medical History Past Medical History (Chronic Problems): Chronic Problems Hyperlipidemia (Chronic) Seizure disorder (Chronic) HTN (hypertension) (Chronic) Anemia of chronic disease (Chronic) Cardiomyopathy (Chronic) CHF (congestive heart failure) (Chronic) ESRD (end stage renal disease) on dialysis (Chronic) - Past Surgical History Surgical History: - - prosthetic right eye, Rt upper arm AVF, right adrenal gland removal for unknown reason - Social History Smoking Status: Current every day smoker Alcohol: None Drugs: None - Family History Maternal History Items: No pertinent history Paternal History Items: No pertinent history Review of Systems Constitutional: Denies: Chills, Fever, Weight Change HEENT: Denies: Head Aches, Sinus Congestion, Sinus Drainage Cardiovascular: Denies: Chest Pain, Palpitations Respiratory: Denies: Cough, Shortness of breath at rest, Sputum production Gastrointestinal: Denies: Abdominal Pain, Nausea, Vomiting Genitourinary: Denies: Dysuria Musculoskeletal: Denies: Joint Pain, Joint Tenderness Skin: Denies: Rash, Wounds Neurological: Denies: Numbness, Tingling, Focal weakness Psychiatric: Denies: Anxiety, Depression, Homicidal Ideations, Suicidal Ideations Hematologic/ Lymphatic: Denies: Easy Bruising, Easy Bleeding Patient Problems: Active and Suspected Problems Chest pain (Acute) Abnormal stress test (Acute) - Physical Exam General: Alert, Oriented x3, Cooperative HEENT: Atraumatic, PERRLA, EOMI, Normocephalic Neck: Supple, No JVD, Negative Carotid Bruits Lungs: Clear to auscultation, Normal air movement Cardiovascular: Regular rate, No murmurs Abdomen: Bowel Sounds Present, Soft, Non Tender Extremities: No edema, Capillary Refill Less than 3 Seconds Skin: No rashes, No breakdown Musculoskeletal: No Tenderness to Palpation of Joints or Extremities Neurological: Cranial nerves II-XII grossly intact Psych/Mental Status: Normal Affect, Appropriate Vital Signs Temp Pulse Resp BP Pulse Ox 98.1 F 76 18 124/70 H 99 02/18/18 16:15 02/18/18 16:28 02/18/18 16:15 02/18/18 16:15 02/18/18 16:15 Oxygen Delivery Method Room Air Weight: 69.8 kg Body Mass Index (BMI) 22.7 Finger Stick Blood Glucose 143 Intake and Output for Last 24 Hours 02/16/18 02/17/18 02/18/18 23:59 23:59 23:59 Intake Total 340 / 340 Balance 340 / 340 Laboratory Tests Past 24 Hrs 02/17/18 02/17/18 02/18/18 18:15 21:02 05:18 WBC 4.4 RBC 4.11 L Hgb 12.5 L Hct 38.0 L MCV 92.5 MCH 30.4 MCHC 32.9 RDW 13.5 RDW Differential 45.4 H Plt Count 121 L MPV 10.2 Immature Gran % (Auto) 0.200 Neut % (Auto) 32.0 L Lymph % (Auto) 55.4 H [place] % (Auto) 7.8 Eos % (Auto) 3.9 Baso % (Auto) 0.7 Absolute Neuts (auto) 1.4 L Absolute Lymphs (auto) 2.41 Total Counted Not Reportable PT INR APTT Sodium Potassium Chloride Carbon Dioxide Anion Gap BUN Creatinine Estim Creat Clear Calc Est GFR (MDRD) Af Amer Est GFR (MDRD) Non-Af BUN/Creatinine Ratio Glucose Calcium Troponin I 0.030 0.035 02/18/18 02/18/18 05:18 05:18 WBC RBC Hgb Hct MCV MCH MCHC RDW RDW Differential Plt Count MPV Immature Gran % (Auto) Neut % (Auto) Lymph % (Auto) [place] % (Auto) Eos % (Auto) Baso % (Auto) Absolute Neuts (auto) Absolute Lymphs (auto) Total Counted PT 13.5 INR 1.0 APTT 37.7 H Sodium 135 L Potassium 5.3 H Chloride 94 L Carbon Dioxide 29.0 Anion Gap 12 BUN 47 H Creatinine 10.60 H* Estim Creat Clear Calc 7.50 Est GFR (MDRD) Af Amer 7 L Est GFR (MDRD) Non-Af 5 L BUN/Creatinine Ratio 4.4 L Glucose 86 Calcium 8.0 L Troponin I Assessment/Plan All Active Problems Chest pain (Acute) Abnormal stress test (Acute) ESRD. HD tomorrow as per schedule Chest pain. stress test positive. for cath tomorrow
--- NOTE | 2018-02-18 19:29 | NURSING ---
This RN walked patient after heart cath bed rest, Dressing D/I, site WNL, pedal pulses present. Pt denies any additional needs or concerns.
[2018-02-18] MEDS: Sodium Polystyrene Sulfonate 15 GM/60 ML UDC PO (19:58)
--- NOTE | 2018-02-18 20:19 | NURSING ---
No available SOB zone sheets to give to patient.
[2018-02-18] MEDS: Heparin Injection (Vial) 5,000 UNIT/ML VIAL 5000 UNIT SC (21:36)
[2018-02-18] MEDS: 0.9% NaCl Peripheral Flush Adult/Peds IV (21:37)
[2018-02-18] MEDS: DiphenhydrAMINE 50 MG/ML Syringe 12.5 MG IV (21:37)
[2018-02-18 21:50] LABS: Potassium 4.4 mmol/L (3.5-5.1)
--- NOTE | 2018-02-18 23:48 | NURSING ---
2200 Hydralazine given late due to patient receiving Kayexalate at 1999 and per the new protocol, no PO medications should be given until 3 hours following Kayexalate
[2018-02-19] VITALS (10 sets, daily range): BP systolic 106–140; BP diastolic 65–87; PULSE 70–94; RESP 16; TEMP 36.2–36.8; O2SAT 96–100
[2018-02-19] MEDS: traMADol 50 MG Tablet PO (01:31)
[2018-02-19] MEDS: Heparin Injection (Vial) 5,000 UNIT/ML VIAL 5000 UNIT SC (05:01)
[2018-02-19] MEDS: hydrALAZINE 25 MG Tablet PO (05:01)
--- NOTE | 2018-02-19 05:55 | ECHOCS_ITS ---
Reason For Study: CHF Procedure This was a 2D Doppler, Color Flow transthoracic echocardiogram. The study was technically difficult. Contrast injection was performed. Exam performed portable in patient room. Left Ventricle Severely dilated left ventricle. Severe global left ventricular systolic dysfunction. The estimated ejection fraction is 25 %. There is evidence of diastolic dysfunction. Right Ventricle Normal RV size. Normal systolic function. Atria The left atrium is mildly enlarged. Normal right atrium. No doppler evidence for ASD. Mitral Valve There is no mitral annular calcification. Normal mitral valve. Trivial mitral valve insufficiency. Tricuspid Valve Normal tricuspid valve. Trivial tricuspid valve insufficiency. Right ventricular systolic pressure estimated to be 26 mmHg. Aortic Valve Trisinus/trileaflet aortic valve. Normal aortic valve. Pulmonic Valve The pulmonic valve is not well visualized. Trivial pulmonic valve insufficiency. Great Vessels Normal sized aortic root. Pericardium/Pleural No pericardial effusion. Medication Definity0.5ml given slow IV push to enhance endocardial definition. MMode/2D Measurements & Calculations LVIDd: 6.7 cm IVSd: 1.2 cm Ao root diam: 3.0 cm LVIDs: 6.1 cm LVPWd: 0.74 cm RVDd: 3.6 cm FS: 9.3 % LAV(MOD-bp): 77.8 ml LVAd ap4: 58.0 cm2 SV(MOD-sp4): 79.0 ml LAV(MOD-bp) Indexed: 41.6 ml/m2 EDV(MOD-sp4): 270.2 ml LAV(MOD-sp2): 102.0 ml EDV(sp4-el): 279.6 ml LAV(MOD-sp4): 49.1 ml LVAs ap4: 45.8 cm2 ESV(MOD-sp4): 191.3 ml ESV(sp4-el): 192.2 ml EF(MOD-sp4): 29.2 % EF(sp4-el): 31.3 % SV(sp4-el): 87.4 ml LA A4 area: 17.2 cm2 LA dimension(2D): 4.1 cm RA A4 area: 11.3 cm2 Doppler Measurements & Calculations MV E max alvaro: 82.3 cm/sec Lat Peak E' Alvaro: 4.6 cm/sec Med Peak E' Alvaro: 4.6 cm/sec MV A max alvaro: 97.4 cm/sec E/E' lat: 17.7 E/E' med: 17.7 MV E/A: 0.84 Ao V2 max: 138.9 cm/sec LV V1 max: 115.5 cm/sec PA V2 max: 109.9 cm/sec Ao max P.7 mmHg LV V1 max P.3 mmHg Ao V2 mean: 95.4 cm/sec Ao mean P.0 mmHg Ao V2 VTI: 24.8 cm TR max alvaro: 237.1 cm/sec TR max P.5 mmHg Interpretation Summary The study was technically difficult. Contrast injection was performed. Severely dilated left ventricle. Severe global left ventricular systolic dysfunction. The estimated ejection fraction is 25 %. The left atrium is mildly enlarged. Trivial mitral valve insufficiency. Trivial tricuspid valve insufficiency. Trivial pulmonic valve insufficiency. Right ventricular systolic pressure estimated to be 26 mmHg. There is evidence of diastolic dysfunction. 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 Ordering Physician: Rasta Kitchen Referring Physician: Sesar Quiñones Performed By: Leonor Kay, ANGELICA, RVT
[2018-02-19 06:09] LABS: Hemoglobin 11.3 g/dl (13.0-16.5)
[2018-02-19 06:35] LABS: Anion Gap 15 (5-15); BUN 65 mg/dL (7-18); BUN/Creat Ratio 4.8 RATIO (10-20); Chloride 92 mmol/L (98-107); EST Glomerular Filtration Rate 4 mL/min (>60); Est Glom Filt Rate - Afr Amer 5 mL/min (>60); Estimated Creatinine Clearance 5.92 ml/min; Glucose 109 mg/dL (74-106); Potassium 5.2 mmol/L (3.5-5.1); Sodium Level 136 mmol/L (136-145)
--- NOTE | 2018-02-19 07:22 | PCM.PN.REN ---
Patient Problems: Active and Suspected Problems Chest pain (Acute) Abnormal stress test (Acute) Subjective: Patient has no complaint. No chest pain. No shortness of breath. No nausea no vomiting - Physical Exam General: Alert, Oriented x3 HEENT: Atraumatic Oral: Moist Mucosa Neck: Supple, No JVD Cardiovascular: Regular rate, Regular Rhythm, Normal S1, Normal S2 Abdomen: Bowel Sounds Present, Soft, Non Tender, Non-Distended Extremities: No clubbing, No cyanosis, No edema Skin: No rashes Musculoskeletal: No Tenderness to Palpation of Joints or Extremities Lymphatic: No Cervical, Supraclavicular, or Inguinal Adenopathy Neurological: Cranial nerves II-XII grossly intact, Neuro grossly intact Psych/Mental Status: Normal Affect Comment: Hemodialysis access is right upper extremity AV graft with positive bruit Vital Signs Temp Pulse Resp BP Pulse Ox 98.3 F 85 16 115/74 96 02/19/18 05:00 02/19/18 05:01 02/19/18 05:00 02/19/18 05:01 02/19/18 07:02 Oxygen Delivery Method Room Air Weight: 72.1 kg Body Mass Index (BMI) 22.7 Finger Stick Blood Glucose 143 Intake and Output for Last 24 Hours 02/17/18 02/18/18 02/19/18 23:59 23:59 23:59 Intake Total 490 / 490 540 / 540 Balance 490 / 490 540 / 540 Laboratory Tests Past 24 Hrs 02/18/18 02/19/18 02/19/18 21:07 05:45 05:45 Hgb 11.3 L Hct 34.0 L Sodium 136 Potassium 4.4 5.2 H Chloride 92 L Carbon Dioxide 29.0 Anion Gap 15 BUN 65 H Creatinine 13.60 H* Estim Creat Clear Calc 5.92 Est GFR (MDRD) Af Amer 5 L Est GFR (MDRD) Non-Af 4 L BUN/Creatinine Ratio 4.8 L Glucose 109 H Calcium 8.0 L Medical Necessity - Tobacco Use Smoking Status: Current every day smoker Tobacco Use: Cigarettes, Cigars Assessment/Plan All Active Problems Chest pain (Acute) Abnormal stress test (Acute) 1-end-stage renal disease. Patient is on Saturday hemodialysis schedule. Patient goes to [facility]. Hemodialysis access is right upper extremity AV graft. We will arrange for hemodialysis today. 2-bone mineral disease. Patient on PhosLo 1334 mg with each meal. 3-anemia. Hemoglobin more than 11. No need for KITTY. 4-hypertension: Blood pressure is well controlled. Please continue the same blood pressure medications. Will do ultrafiltration to EDW. 5-chest pain: Patient had cardiac cath yesterday which was negative. Thank you for the consult. Renal team will continue to follow.
--- NOTE | 2018-02-19 08:20 | PCM.PN.CARD ---
Subjectve: The patient is awake and alert. He denies any ongoing chest discomfort or difficulty breathing. Objective: Vital Signs Temp Pulse Resp BP Pulse Ox 98.3 F 85 16 115/74 96 02/19/18 05:00 02/19/18 05:01 02/19/18 05:00 02/19/18 05:01 02/19/18 07:02 Oxygen Delivery Method Room Air Weight: 158 lb 15.253 oz Body Mass Index (BMI) 22.7 Finger Stick Blood Glucose 143 Intake and Output for Last 24 Hours 02/17/18 02/18/18 02/19/18 23:59 23:59 23:59 Intake Total 490 / 490 540 / 540 Balance 490 / 490 540 / 540 General: Awake, Alert, Oriented x 3, Cooperative, No Acute Distress HEENT: Atraumatic, Normocephalic, PERRL, EOMI, Sclera Non Icteric Oral: Moist Mucosa Neck: Supple, Good ROM, No JVD Lungs: Clear to auscultation Cardiovascular: Regular Rhythm, Normal S1, Normal S2 Murmur Murmur: Grade 2/6, Soft, Mid Systolic, LLSB, LVOT Vascular: Normal Femoral Pulses Abdomen: Bowel Sounds Present, Soft, Non Tender Extremities: No edema Psych/Mental Status: Appropriate 02/18/18 21:07: Potassium 4.4 02/19/18 05:45: Sodium 136, Potassium 5.2 H, Chloride 92 L, Carbon Dioxide 29.0, Anion Gap 15, BUN 65 H, Creatinine 13.60 H*, Est GFR (MDRD) Af Amer 5 L, Est GFR (MDRD) Non-Af 4 L, BUN/Creatinine Ratio 4.8 L, Glucose 109 H, Calcium 8.0 L 02/19/18 05:45: Hgb 11.3 L, Hct 34.0 L Rhythm: Sinus rhythm Medical Necessity - Tobacco Use Smoking Status: Current every day smoker Tobacco Use: Cigarettes, Cigars Assessment/Plan 1. Chest pain The patient did experience chest discomfort. Based on his description it would be concerning for an angina pectoris equivalent. He is undergone evaluation with cardiac enzymes which have been negative thus far. His ECG demonstrates an underlying left bundle branch block pattern. His pharmacologic stress nuclear imaging study suggests an area compatible stress-induced myocardial ischemia in the anterior apical distribution with diminished LV systolic function. He has now undergone evaluation with diagnostic cardiac catheterization. His cardiac catheterization procedure appear to demonstrate angiographically normal-appearing coronary arteries. Thus it does not appear his chest discomfort is related to underlying CAD. He should be considered for non-CAD/noncardiac evaluation of his chest discomfort. 2. Abnormal pharmacologic stress nuclear imaging study His pharmacologic stress test appears to be a false positive noting that he does not have underlying CAD. This may be related to his underlying left bundle branch block pattern and/or his underlying non-CAD cardiomyopathy. 3. Cardiomyopathy The patient does have a history of an underlying non-CAD related cardiomyopathy. He is going to be evaluated with a transthoracic echocardiogram to correlate his left ventricular wall motion and systolic function with his current cardiovascular status. His medications will be altered to include beta-clement therapy. Also he will have nitrates added to his hydralazine therapy. These medications will have to be adjusted based upon his blood pressure response. He will need long-term follow-up with his primary vice president investor relations to further adjust his medication and follow his left ventricular systolic function. 4. Hyperlipidemia The patient should continue lipid evaluation and care as deemed appropriate taking into consideration his other medical issues. 5. Hypertension The patient's blood pressure will need to be monitored. It is reported as fluctuating in and around the time of dialysis, etc. 6. End-stage renal disease on chronic hemodialysis The patient will continue under the care of nephrology. Comment: The above was discussed and reviewed with the patient. He was agreeable to this approach. This note was generated with [employer] software. It may contain incorrect words, spelling, and punctuation that were not noted in checking the note before signing.
--- NOTE | 2018-02-19 08:29 | PN.CARD_ITS ---
Subjectve: The patient is awake and alert. He denies any ongoing chest discomfort or difficulty breathing. Objective: Vital Signs Temp Pulse Resp BP Pulse Ox 98.3 F 85 16 115/74 96 02/19/18 05:00 02/19/18 05:01 02/19/18 05:00 02/19/18 05:01 02/19/18 07:02 Oxygen Delivery Method Room Air Weight: 158 lb 15.253 oz Body Mass Index (BMI) 22.7 Finger Stick Blood Glucose 143 Intake and Output for Last 24 Hours 02/17/18 02/18/18 02/19/18 23:59 23:59 23:59 Intake Total 490 / 490 540 / 540 Balance 490 / 490 540 / 540 General: Awake, Alert, Oriented x 3, Cooperative, No Acute Distress HEENT: Atraumatic, Normocephalic, PERRL, EOMI, Sclera Non Icteric Oral: Moist Mucosa Neck: Supple, Good ROM, No JVD Lungs: Clear to auscultation Cardiovascular: Regular Rhythm, Normal S1, Normal S2 Murmur Murmur: Grade 2/6, Soft, Mid Systolic, LLSB, LVOT Vascular: Normal Femoral Pulses Abdomen: Bowel Sounds Present, Soft, Non Tender Extremities: No edema Psych/Mental Status: Appropriate 02/18/18 21:07: Potassium 4.4 02/19/18 05:45: Sodium 136, Potassium 5.2 H, Chloride 92 L, Carbon Dioxide 29.0, Anion Gap 15, BUN 65 H, Creatinine 13.60 H*, Est GFR (MDRD) Af Amer 5 L, Est GFR (MDRD) Non-Af 4 L, BUN/Creatinine Ratio 4.8 L, Glucose 109 H, Calcium 8.0 L 02/19/18 05:45: Hgb 11.3 L, Hct 34.0 L Rhythm: Sinus rhythm Medical Necessity - Tobacco Use Smoking Status: Current every day smoker Tobacco Use: Cigarettes, Cigars Assessment/Plan 1. Chest pain The patient did experience chest discomfort. Based on his description it would be concerning for an angina pectoris equivalent. He is undergone evaluation with cardiac enzymes which have been negative thus far. His ECG demonstrates an underlying left bundle branch block pattern. His pharmacologic stress nuclear imaging study suggests an area compatible stress-induced myocardial ischemia in the anterior apical distribution with diminished LV systolic function. He has now undergone evaluation with diagnostic cardiac catheterization. His cardiac catheterization procedure appear to demonstrate angiographically normal- appearing coronary arteries. Thus it does not appear his chest discomfort is related to underlying CAD. He should be considered for non-CAD/noncardiac evaluation of his chest discomfort. 2. Abnormal pharmacologic stress nuclear imaging study His pharmacologic stress test appears to be a false positive noting that he does not have underlying CAD. This may be related to his underlying left bundle branch block pattern and/or his underlying non-CAD cardiomyopathy. 3. Cardiomyopathy The patient does have a history of an underlying non-CAD related cardiomyopathy. He is going to be evaluated with a transthoracic echocardiogram to correlate his left ventricular wall motion and systolic function with his current cardiovascular status. His medications will be altered to include beta-clement therapy. Also he will have nitrates added to his hydralazine therapy. These medications will have to be adjusted based upon his blood pressure response. He will need long-term follow-up with his primary glass vial filler to further adjust his medication and follow his left ventricular systolic function. 4. Hyperlipidemia The patient should continue lipid evaluation and care as deemed appropriate taking into consideration his other medical issues. 5. Hypertension The patient's blood pressure will need to be monitored. It is reported as fluctuating in and around the time of dialysis, etc. 6. End-stage renal disease on chronic hemodialysis The patient will continue under the care of nephrology. Comment: The above was discussed and reviewed with the patient. He was agreeable to this approach. This note was generated with [employer] software. It may contain incorrect words, spelling, and punctuation that were not noted in checking the note before signing.
--- NOTE | 2018-02-19 10:38 | CASEMGMT ---
Patient asked to talk with ESTRELLITA. SW met with patient and he said he needs a ride home. He will be getting dialysis before he goes today. Therefore, he won't get done in time for the hospital van. ESTRELLITA let chargemaster analyst know patient will need transportation home. Marly EASTON MSW
--- NOTE | 2018-02-19 10:48 | DCINST_ITS ---
- Discharge Diagnoses Current Active Problems: Current Active and Chronic Problems Chest pain (Acute) Abnormal stress test (Acute) You will use the following diet at home:: Cardiac, Renal (restricted protein/sodium) Your food should be the consistency of: Regular Discharge Activity: Return to Normal Activity, May not drive while taking narcotic pain medications. Weight Bearing Status: Weight bearing as tolerated Call your doctor if you observe: Fever of 101 or Higher, Shortness of breath, Dizziness, Fainting spells, Chest pain, Increased palpitations (irregular heartbeat), Uncontrolled pain Instructions: Taking Your Blood Pressure Allergies/Adverse Reactions: Allergies Penicillins Allergy (Verified 02/17/18 13:45) Unknown sulfamethoxazole [From Bactrim] Allergy (Verified 02/17/18 13:45) Swelling trimethoprim [From Bactrim] Allergy (Verified 02/17/18 13:45) Swelling Medications to take at Discharge Calcium Acetate [Phoslo Gel Cap] 1,334 mg PO TIDCM 03/08/14 hydrALAZINE [Apresoline] 25 mg PO TID 02/20/16 Loperamide [Imodium] 2 - 4 mg PO Q6H PRN PRN 08/21/16 Allopurinol [Zyloprim] 100 mg PO DAILYCM 02/18/18 Diltiazem CD [Cardizem CD] 120 mg PO DAILY 02/18/18 Tamsulosin HCl [Flomax] 0.4 mg PO DAILY 02/18/18 traMADol [Ultram] 50 mg PO Q8H PRN PRN 7 Days #20 tab 02/18/18 Carvedilol [Coreg (Beta Bree)] 3.125 mg PO BID #90 tablet 02/19/18 Isosorbide DN [Isordil] 5 mg PO TID #90 tablet 02/19/18 The following prescriptions were given: traMADol [Ultram] 50 mg PO Q8H PRN PRN 7 Days #20 tab PRN Reason: hip/ back pain Carvedilol [Coreg (Beta Bree)] 3.125 mg PO BID #90 tablet Isosorbide DN [Isordil] 5 mg PO TID #90 tablet Primary Care Physician: Sesar Quiñones MD [Primary Care Provider] - Please follow up with your Primary Care Physician in: 1 week. Test Results: Test results from this visit will be discussed in further detail at your follow- up appointment, if applicable. Please Follow Up With: Martin Mccarty MD When: 1-2 week. Please Follow Up With: Filemon Spencer MD When: please call his office.
--- NOTE | 2018-02-19 12:14 | CASEMGMT ---
Pt is requesting blood pressure cuff/machine to be sent and see if can get covered under insurance. Order faxed to [facility] in [place] as no DME companies in [place] carry BP cuffs currently. Pt states will attempt to get in [place] with help from family/friends. Per [facility], they can run through insurance. THis ENRIQUE REIS did call pt's pharmacy and they cannot run equipment through insurance. Pt updated on all at this time, voices understanding. Pt provided with script as well as phone number/address to [facility], voices understanding. [place]en ENRIQUE REIS
--- NOTE | 2018-02-19 12:28 | PCM.DC.SUM ---
Discharge Date and Diagnosis Date of Admission: 02/17/18 Date of Discharge: 02/19/18 - Primary Discharge Diagnosis Active and Suspected Problems #1 chest pain. #2 abnormal nuclear stress test. #3 mild hyperkalemia. - Secondary Discharge Diagnosis Chronic Problems Hyperlipidemia (Chronic) Seizure disorder (Chronic) HTN (hypertension) (Chronic) Anemia of chronic disease (Chronic) Cardiomyopathy (Chronic) CHF (congestive heart failure) (Chronic) ESRD (end stage renal disease) on dialysis (Chronic) Hospital Course and Treatment Imaging Results: 02/19/18 05:55 Echo Complete W/ Contrast [ECHO] Routine Clinical Impression(s) from Imaging Studies Chest X-Ray 02/17/18 14:24 IMPRESSION: Hyperinflation. The lungs are clear. Electronically Signed: Russ Elias MD at 15:13 EST Tel [phone], Service support , Dr. Kitchen, cardiology. Dr. Nelson/Dr. Tavarez, nephrology. Operations: None Procedures: 2-D Echocardiogram, Cardiac catheterization, Dialysis, Stress test Summary of Care Provided: Patient seen and examined on the day of discharge and appeared to be stable to be discharged home. He denied any more shortness of breath, no chest pressure. His vital signs are stable. The patient is a 57 year old M admitted because of shortness of breath after dialysis as well as questionable chest heaviness/pressure. His initial cardiac workup including EKG and cardiac enzymes were negative. EKG revealed normal sinus rhythm with chronic left bundle branch block, no acute ischemic changes. His troponin was negative x3. He underwent nuclear stress test and that was abnormal and showed myocardial perfusion changes appearing compatible with an element of physiologic apical thinning and compatible with an area of stress-induced myocardial ischemia in the mid to distal anterior and anteroapical segments, ejection fraction was 27%. Cardiology consulted and patient went for cardiac catheterization that revealed angiographically normal left main, left anterior descending, left circumflex and right coronary arteries and the results of the nuclear stress test considered false positive. There was no evidence of significant CAD that requires interventions. 2D echocardiogram revealed severely dilated left ventricle, ejection fraction of 25%, other findings noted. Patient was started on beta-blockers, isosorbide dinitrate and continued on hydralazine. His vital signs remained stable throughout admission and after he received Coreg and dinitrate, his blood pressure remained stable. Patient received his regular dialysis during this hospital stay. His potassium was slightly elevated, went up to 5.3 for dialysis. Patient discharged home in a stable medical condition, started on Coreg twice daily, also by dinitrate 3 times daily small dose, continued on Cardizem and hydralazine, continued on his other home medication without any changes, I recommended to check his blood pressure at least twice a day, follow-up with PCP in 1 week and follow-up with his objective c developer, Dr. Walters, in 2 weeks. - Physical Exam General: Alert, Oriented x3, Cooperative, No apparent distress HEENT: Atraumatic, PERRLA, EOMI, Normocephalic Oral: Moist Mucosa, No Gingival or Mucosal Lesions/ Ulcerations Neck: Supple, No JVD, Negative Carotid Bruits, Trachea Midline, Thyroid Normal Size and Texture Lungs: Clear to auscultation, Normal air movement, No rhonchi, No wheeze, No rales Cardiovascular: Regular rate, Regular Rhythm, Normal S1, Normal S2, No murmurs Abdomen: Bowel Sounds Present, Soft, Non Tender, Non-Distended, No Hepato-splenomegaly Extremities: No clubbing, No cyanosis, No edema Skin: No rashes, No breakdown Lymphatic: No Cervical, Supraclavicular, or Inguinal Adenopathy Neurological: Cranial nerves II-XII grossly intact, Neuro grossly intact Psych/Mental Status: Normal Affect, Appropriate, Alert and oriented to time, place, person, mood and affect Vital Signs Temp Pulse Resp BP Pulse Ox 97.1 F L 77 16 106/65 99 02/19/18 10:51 02/19/18 11:00 02/19/18 10:51 02/19/18 10:51 02/19/18 10:51 Oxygen Delivery Method Room Air Weight: 158 lb 15.253 oz Body Mass Index (BMI) 22.7 Finger Stick Blood Glucose 143 Intake and Output for Last 24 Hours 02/17/18 02/18/18 02/19/18 23:59 23:59 23:59 Intake Total 490 / 490 540 / 540 Balance 490 / 490 540 / 540 Laboratory Tests Past 24 Hrs 02/18/18 02/19/18 02/19/18 21:07 05:45 05:45 Hgb 11.3 L Hct 34.0 L Sodium 136 Potassium 4.4 5.2 H Chloride 92 L Carbon Dioxide 29.0 Anion Gap 15 BUN 65 H Creatinine 13.60 H* Estim Creat Clear Calc 5.92 Est GFR (MDRD) Af Amer 5 L Est GFR (MDRD) Non-Af 4 L BUN/Creatinine Ratio 4.8 L Glucose 109 H Calcium 8.0 L Discharge Activity: Return to Normal Activity, May not drive while taking narcotic pain medications. Weight Bearing Status: Weight bearing as tolerated Call your doctor if you observe: Fever of 101 or Higher, Shortness of breath, Dizziness, Fainting spells, Chest pain, Increased palpitations (irregular heartbeat), Uncontrolled pain Home Medications: Medications to take at Discharge Calcium Acetate [Phoslo Gel Cap] 1,334 mg PO TIDCM 03/08/14 hydrALAZINE [Apresoline] 25 mg PO TID 02/20/16 Loperamide [Imodium] 2 - 4 mg PO Q6H PRN PRN 08/21/16 Allopurinol [Zyloprim] 100 mg PO DAILYCM 02/18/18 Diltiazem CD [Cardizem CD] 120 mg PO DAILY 02/18/18 Tamsulosin HCl [Flomax] 0.4 mg PO DAILY 02/18/18 traMADol [Ultram] 50 mg PO Q8H PRN PRN 7 Days #20 tab 02/18/18 Carvedilol [Coreg (Beta Bree)] 3.125 mg PO BID #90 tablet 02/19/18 Isosorbide DN [Isordil] 5 mg PO TID #90 tablet 02/19/18 Following Prescrptions Were Given to Patient: traMADol [Ultram] 50 mg PO Q8H PRN PRN 7 Days #20 tab PRN Reason: hip/ back pain Carvedilol [Coreg (Beta Bree)] 3.125 mg PO BID #90 tablet Isosorbide DN [Isordil] 5 mg PO TID #90 tablet Primary Care Physician: Sesar Quiñones MD [Primary Care Provider] - Please follow up with your Primary Care Physician in: 1 week. Please Follow Up With: Martin Mccarty MD When: 1-2 week. Please Follow Up With: Filemon Spencer MD When: please call his office. Patient Instructions: Taking Your Blood Pressure Disposition: Home Minutes spent on discharge:: 28 Patient Condition:: Stable Medical Necessity - Tobacco Use Smoking Status: Current every day smoker Tobacco Use: Cigarettes, Cigars Meaningful Use Info Meaningful Use Diagnoses (Choose all that apply): None applicable Code Visit OBSV E&M: 19461 Observation care discharge
--- NOTE | 2018-02-19 18:09 | DIALYSIS ---
HD x 3 hrs- ordered for 3.5 but pt wanted off early due to transportation issues. UF-1000ml tolerated well. Stasis at [facility]. dsg at sites. vitals stable post treatment. stasis at [facility] report given to floor RN
== END 2018-02-19 10:48 | disposition home or self-care (01) ==
LOC: ED 14:57 → PCU 16:40
PROVIDERS: Family Medicine; Internal Medicine Cardiovascular Disease; Admitting Provider Hospitalist; Emergency Provider Emergency Medicine; Family Provider Family Medicine; PCP Family Medicine; Visit Provider Hospitalist
DX: R07.89 Other chest pain (principal); R94.39 Abnormal result of other cardiovascular function study; E87.5 Hyperkalemia; I43 Cardiomyopathy in diseases classified elsewhere; E78.5 Hyperlipidemia, unspecified; D63.8 Anemia in other chronic diseases classified elsewhere; I13.2 Hypertensive heart and chronic kidney disease with heart failure and with stage 5 chronic kidney disease, or end stage renal disease; I50.22 Chronic systolic (congestive) heart failure; N18.6 End stage renal disease; G40.909 Epilepsy, unspecified, not intractable, without status epilepticus; F17.210 Nicotine dependence, cigarettes, uncomplicated; D69.6 Thrombocytopenia, unspecified; Z99.2 Dependence on renal dialysis; Z79.899 Other long term (current) drug therapy; I44.7 Left bundle-branch block, unspecified
CPT/HCPCS: 36415; 71046; 78452; 80048; 84132; 84484; 85014; 85018; 85025; 85610; 85730; 90937; 93005; 93017; 93306; 93454; 96372; 96374; 97802; 99152; 99153; 99218; 99285; 99406; A9500; Q9957; Q9967; A4216; C1894; C8929; G0257; G0378; J2785

== ENCOUNTER 2018-04-03 13:51 | Emergency (ER) | payer MEDICARE, SELFPAY ==
[2018-02-17 17:45] VITALS: BMI 22.7
[2018-04-03 13:52] VITALS: BP 136/71; PULSE 82; RESP 16; TEMP 36.5; O2SAT 97; BMI 25.1
--- NOTE | 2018-04-03 14:11 | ED.VISSUMM ---
- ER Visit Summary Date of Service: 04/03/18 Chief Complaint: [] Bilateral hip pain end-stage renal disease History of Present Illness: The patient is a 57 M [] he has a long history of bilateral hip pain end-stage renal disease his end-stage renal disease is stable he has a fistula right upper extremity he has been dialyzed on his appropriate schedule he has no complaints. Indicates he has bilateral hip pain he is been able unable to see his outpatient providers and he presents for evaluation he has had no numbness weakness paresthesias he is able to walk he had no trauma, he has been evaluated for this process in the past with x-rays etc. and is told he has arthritis in both hips been no trauma fever etc. Physical Examination: [] 136/71 General, no distress resting comfortably HEENT is generally unremarkable The neck is supple no adenopathy Cardiovascular, regular rate and rhythm Lungs, clear bilateral Abdomen, soft nontender Extremities, no clubbing cyanosis or edema fistula right upper extremity with a good thrill he has full range of motion of his hips and legs bilaterally he is able to walk around without difficulty he has no signs of peripheral vascular disease or disorder or an acute issue there is no neurologic abnormalities Neurologic, awake alert answering questions appropriately moving all 4 extremities Test Results: [] Emergency Department Course and Treatment: [] Treatment Plan: [] Disposition: [] Long conversation with the patient has had this before he is been told is related to arthritis his main issue is pain management I explained to him we can start him on Tylenol with codeine other pain management options must be obtained from outpatient providers based on state regulations he will also be referred to orthopedics is comp with this plan will follow-up, he agrees additional diagnostic management is not necessary at this point time Impression: [] Acute recurrent bilateral hip pain history of end-stage renal disease This note was generated with [employer] dictation software. It may contain incorrect words, spelling, and punctuation that were not noted in review of the chart prior to signing ED Disposition - Plan for ED Patient: Chief Complaint: Lower Extremity Injury Referrals: Sesar Quiñones MD [Primary Care Provider] -
--- NOTE | 2018-04-03 14:13 | ED.DEP ---
ED Disposition - Plan for ED Patient: Chief Complaint: Lower Extremity Injury Instructions: ED Sprain Hip Prescriptions: Acetaminophen with Codeine [Tylenol with Codeine #3 Tablet] 1 ea PO 4X/DAY PRN PRN #20 tab PRN Reason: Pain Referrals: Sesar Quiñones MD [Primary Care Provider] - Narendra Mccarty MD [STAFF PHYSICIAN] -
--- NOTE | 2018-04-03 14:39 | ED.RN ---
DISCHARGE INSTRUCTIONS GIVEN TO AND REVIEWED WITH PATIENT, PATIENT DENIES QUESTIONS OR CONCERNS AND VOICES UNDERSTANDING OF DISCHARGE INSTRUCTIONS. PT AMBULATES OUT OF ROOM WITHOUT DIFFICULTY.
== END 2018-04-03 14:39 | disposition home or self-care (01) ==
LOC: ED 14:33
PROVIDERS: Emergency Provider Emergency Medicine; Family Provider Family Medicine; PCP Family Medicine
DX: M16.0 Bilateral primary osteoarthritis of hip (principal); N18.6 End stage renal disease; Z99.2 Dependence on renal dialysis
CPT/HCPCS: 99282

== ENCOUNTER 2018-04-14 06:59 | Inpatient (IN) | payer MEDICARE, SELFPAY ==
[2018-04-14] VITALS (14 sets, daily range): BP systolic 94–134; BP diastolic 40–87; PULSE 68–108; RESP 16–35; TEMP 36.2–36.8; O2SAT 92–100; BMI 23.3; BMI 22.4
--- NOTE | 2018-04-14 07:12 | RAD_ITS ---
HISTORY: SOB/Dyspnea general illness x several days EXAM:XR Chest 1 View: Portable COMPARISON: 02/17/2018 FINDINGS: EKG leads in place. Normal heart size. Bilateral hyperinflation and hyperlucency compatible with COPD. No vascular congestion, pleural effusion, or acute pulmonary infiltration. No pneumothorax. Surgical clips within the upper abdomen and also at the upper right arm. RAD/Chest 1 View (Portable) IMPRESSION: 1. No acute cardiopulmonary disease. 2. COPD. at 0742 Reported and signed by: Marc Loza MD Electronically Signed: Marc Loza, at 7:41 EST Tel , Service support ,
--- NOTE | 2018-04-14 07:13 | EKG12_ITS ---
Test Reason : Blood Pressure : / mmHG Vent. Rate : 076 BPM Atrial Rate : 076 BPM P-R Int : 142 ms QRS Dur : 164 ms QT Int : 496 ms P-R-T Axes : 065 051 162 degrees QTc Int : 558 ms Normal sinus rhythm Left bundle branch block Abnormal ECG Confirmed by MODESTA DINH, MEHDI ([id number]), editor department LEVI ROSE ([id number]) on 04/16/2018 1:49:53 PM Referred By: GOYO Confirmed By:MEHDI BYERS MD
--- NOTE | 2018-04-14 07:18 | ED.VISSUMM ---
- ER Visit Summary Date of Service: 04/14/18 Chief Complaint: Cough congestion History of Present Illness: The patient is a 57 M with end-stage renal failure on hemodialysis and a right graft fistula presents straight from dialysis for complaining of tightness in his chest and shortness of breath that started about 3 days ago. Last hemodialysis was 3 days ago. He does not report any fever chills or abdominal pain. He has a cough which is slightly productive. He denies chest pain or back pain. He does feel some nausea associated with this. He was recently hospitalized at a positive stress test however a clean catheterization. Physical Examination: Patient is comfortable speaking in full sentences but does not appear in significant distress Moist mucous membranes, no obvious facial deformity No C-spine tenderness supple neck. Regular rate and rhythm without any obvious murmurs Course lungs bilaterally speaking in full sentences without any obvious respiratory distress Abdomen soft and nontender no guarding or rebound Moves all extremities without any difficulty or pain. There is no edema right upper extremity graft fistula with palpable thrill Skin does not show any obvious rashes or lesions, no trauma. Alert oriented ?3 with no gross focal deficit Emergency Department Course and Treatment: Patient is found to have a potassium of 6.9, his EKG shows an old bundle branch block but otherwise no significant abnormalities. He will need dialysis, will admit him and call nephrology. Disposition: Admit in guarded condition for dialysis Impression: Hyperkalemia This note was generated with [employer] dictation software. It may contain incorrect words, spelling, and punctuation that were not noted in review of the chart prior to signing ED Disposition - Plan for ED Patient: Referrals: Sesar Quiñones MD [Primary Care Provider] -
[2018-04-14 08:20] LABS: Absolute Lymphocyte Count 3.85 X10^3/ul (0.83-4.51); Basophil# 0.05 X10^3/uL; Basophil% 0.5 % (0-1); Eosinophil# 0.23 X10^3/uL; Eosinophils% 2.2 % (0-5); Hematocrit 42.5 % (40-54); Hemoglobin 13.8 g/dl (13.0-16.5); Lymphocyte # 3.85 X10^3/ul (4.0); Lymphocyte % 37.2 % (19-41); Mean Corp Hgb Conc 32.5 g/gl (32-36); Mean Corpuscular Hgb 29.4 pg (27.0-32.0); Mean Corpuscular Volume 90.6 fL (80-94); Mean Platelet Vol. 11.8 fl (6.2-12.0); Monocyte# 1.16 X10^3/uL; Monocyte% 11.2 % (0-10); Neutrophil # 5.04 X10^3/uL (2.7-7.7); Neutrophil % 48.8 % (47-70); Platelet Count 211 K/mm3 (150-450); RBC Distribution Width CV 14.2 % (11.6-14.6); RBC Distribution Width SD 46.8 fl (35.1-43.9); Red Blood Count 4.69 M/mm3 (4.6-6.2); White Blood Count 10.3 K/mm3 (4.4-11.0)
[2018-04-14 08:32] LABS: POSITIVE COUNT NO; POSITIVE DIFFERENTIAL NO; POSITIVE MORPHOLOGY NO
[2018-04-14 08:47] LABS: ALB/GLOB Ratio 0.6 RATIO (0.9-2.4); AST(SGOT) 19 U/L (15-37); Alanine Aminotransfer ALT/SGPT 18 U/L (16-61); Albumin, Serum 3.8 g/dL (3.2-5.0); Alkaline Phosphatase 99 U/L (45-117); Anion Gap 22 (5-15); BUN 79 mg/dL (7-18); BUN/Creat Ratio 4.9 RATIO (10-20); Calcium,Total 8.9 mg/dL (8.5-10.1); Chloride 78 mmol/L (98-107); EST Glomerular Filtration Rate 3 mL/min (>60); Est Glom Filt Rate - Afr Amer 4 mL/min (>60); Globulin 6.2 g/dL (2.2-4.2); Glucose 93 mg/dL (74-106); Potassium 6.9 mmol/L (3.5-5.1); Sodium Level 131 mmol/L (136-145)
--- NOTE | 2018-04-14 08:54 | NURSING ---
PAGED DR GRANADOS OR SR. DIRECTOR
[2018-04-14] MEDS: Ondansetron 4 MG/2 ML Vial IM (08:56)
[2018-04-14] MEDS: Albuterol 2.5 MG/3 ML VIAL.NEB. INHALATION (09:09)
--- NOTE | 2018-04-14 09:25 | NURSING ---
PCU HYPERKALEMIA BEVERLY
[2018-04-14 09:32] LABS: Bedside Glucose 95 mg/dL (70-110)
--- NOTE | 2018-04-14 12:09 | CON.PCM_ITS ---
Problem List (1) ESRD (end stage renal disease) on dialysis Status: Chronic Consultation - Renal 04/14/18 PCP/ Referring MD: Requesting physician: Dr Lugo Primary care physician: Sesar Quiñones Reason for Consultation:: ESRD - History of Present Illness History of Present Illness: The patient is a 57 year old M well known to us. ESRD on HD MWF schedule. last HD was saturday, uneventful came in with weakness, nausea and vomitings. sick contacts + found to have K of 6.9 today currently complains of chills, weakness and nausea - Allergies Allergies: Allergies Penicillins Allergy (Verified 04/14/18 07:13) Unknown sulfamethoxazole [From Bactrim] Allergy (Verified 04/14/18 07:13) Swelling trimethoprim [From Bactrim] Allergy (Verified 04/14/18 07:13) Swelling - Current Medications Current Medications: Current Medications Heparin Sodium (Porcine) () 2,500 units IV UD PRN PRN Reason: HEPARIN FLUSH Sodium Chloride () 5 - 15 ml IV UD PRN PRN Reason: SALINE FLUSH Sodium Chloride () 10 ml IV UD PRN PRN Reason: Dialysis Catheter Flush - Past Medical History Past Medical History (Chronic Problems): Chronic Problems Hyperlipidemia (Chronic) Seizure disorder (Chronic) HTN (hypertension) (Chronic) Anemia of chronic disease (Chronic) Cardiomyopathy (Chronic) CHF (congestive heart failure) (Chronic) ESRD (end stage renal disease) on dialysis (Chronic) - Past Surgical History Surgical History: - - prosthetic right eye, Rt upper arm AVF, right adrenal gland removal for unknown reason - Social History Smoking Status: Current every day smoker - Family History Maternal History Items: No pertinent history Paternal History Items: No pertinent history Review of Systems Constitutional: Denies: Chills, Fever, Weight Change HEENT: Denies: Head Aches, Sinus Congestion, Sinus Drainage Cardiovascular: Denies: Chest Pain, Palpitations Respiratory: Denies: Cough, Shortness of breath at rest, Sputum production Gastrointestinal: Denies: Abdominal Pain, Nausea, Vomiting Genitourinary: Denies: Dysuria Musculoskeletal: Denies: Joint Pain, Joint Tenderness Skin: Denies: Rash, Wounds Neurological: Denies: Numbness, Tingling, Focal weakness Psychiatric: Denies: Anxiety, Depression, Homicidal Ideations, Suicidal Ideations Hematologic/ Lymphatic: Denies: Easy Bruising, Easy Bleeding - Physical Exam General: Alert, Oriented x3, Cooperative HEENT: Atraumatic, PERRLA, EOMI, Normocephalic Neck: Supple, No JVD, Negative Carotid Bruits Lungs: Clear to auscultation, Normal air movement Cardiovascular: Regular rate, No murmurs Abdomen: Bowel Sounds Present, Soft, Non Tender Extremities: No edema, Capillary Refill Less than 3 Seconds Skin: No rashes, No breakdown Musculoskeletal: No Tenderness to Palpation of Joints or Extremities Neurological: Cranial nerves II-XII grossly intact Psych/Mental Status: Normal Affect, Appropriate Vital Signs Temp Pulse Resp BP Pulse Ox 98.1 F 92 35 H 107/68 100 04/14/18 11:19 04/14/18 11:19 04/14/18 11:19 04/14/18 11:19 04/14/18 09:25 Oxygen Flow Rate (L/min) 6 Oxygen Delivery Method Nasal Cannula Weight: 68.7 kg Body Mass Index (BMI) 22.4 Finger Stick Blood Glucose 95 Laboratory Tests Past 24 Hrs 04/14/18 04/14/18 08:10 08:10 WBC 10.3 RBC 4.69 Hgb 13.8 Hct 42.5 MCV 90.6 MCH 29.4 MCHC 32.5 RDW 14.2 RDW Differential 46.8 H Plt Count 211 MPV 11.8 Immature Gran % (Auto) 0.100 Neut % (Auto) 48.8 Lymph % (Auto) 37.2 [place] % (Auto) 11.2 H Eos % (Auto) 2.2 Baso % (Auto) 0.5 Absolute Neuts (auto) 5.0 Absolute Lymphs (auto) 3.85 Total Counted Not Reportable Sodium 131 L Potassium 6.9 H* Chloride 78 L Carbon Dioxide 31.0 Anion Gap 22 H BUN 79 H Creatinine 16.10 H* Estim Creat Clear Calc 5.00 Est GFR (MDRD) Af Amer 4 L Est GFR (MDRD) Non-Af 3 L BUN/Creatinine Ratio 4.9 L Glucose 93 Calcium 8.9 Total Bilirubin 0.60 AST 19 ALT 18 Alkaline Phosphatase 99 Troponin I 0.056 H Total Protein 10.0 H Albumin 3.8 Globulin 6.2 H Albumin/Globulin Ratio 0.6 L POC Glucose 04/14/18 09:28 POC Glucose 95 Assessment/Plan All Active Problems Chest pain (Acute) Abnormal stress test (Acute) ESRD. HD MWF schedule. last HD saturday. says he has been sick since yesterday. HD today Hyperkalemia. HD on 1 K bath today for 2 hours followed by 2 K bath weakness. flu screen today d/w Dr Lugo
[2018-04-14] MEDS: Glucose Oral Gel 15 GM Tube (12:16)
[2018-04-14 12:26] LABS: Bedside Glucose 67 mg/dL (70-110)
[2018-04-14 12:26] LABS: Bedside Glucose 56 mg/dL (70-110)
[2018-04-14 12:26] LABS: Bedside Glucose 68 mg/dL (70-110)
--- NOTE | 2018-04-14 12:28 | EKG12_ITS ---
Test Reason : ARRYTH Blood Pressure : / mmHG Vent. Rate : 082 BPM Atrial Rate : 082 BPM P-R Int : 140 ms QRS Dur : 162 ms QT Int : 492 ms P-R-T Axes : 066 057 192 degrees QTc Int : 574 ms Normal sinus rhythm Left bundle branch block Abnormal ECG When compared with ECG of 14-APR-2018 07:18, MANUAL COMPARISON REQUIRED, DATA IS UNCONFIRMED Confirmed by MODESTA DINH, MEHDI ([id number]), technical editor LEVI ROSE ([id number]) on 04/16/2018 2:11:16 PM Referred By: Confirmed By:MEHDI BYERS MD
[2018-04-14 13:06] LABS: Bedside Glucose 85 mg/dL (70-110)
[2018-04-14] MEDS: Ondansetron 8 MG Tablet PO ×2 (14:14→16:31)
[2018-04-14 14:26] LABS: Bedside Glucose 98 mg/dL (70-110)
--- NOTE | 2018-04-14 16:33 | DIALYSIS ---
Hemodialysis x 3.5 hours, 2 hours on 1K+ & 1.5 hours with 2K+; Removed = +200; BP 70's -100's, nauseated throughout treatment. RUAG needles pulled; stasis complete; DSD applied; +bruit +thrill. Report given,
--- NOTE | 2018-04-14 16:58 | PCM.HP.STD ---
Problem List (1) Hyperkalemia Status: Acute (2) SIRS (systemic inflammatory response syndrome) Status: Acute (3) Hypotension Status: Acute Qualifiers: Hypotension type: hypotension due to hypovolemia Qualified Code(s): I95.89 - Other hypotension; E86.1 - Hypovolemia History of Present Illness Date of Admission: 04/14/18 Chief Complaint: malaise The patient is a 57 year old M was within normal state of health up until this past , to where he is just been feeling sick and run down. Today, on dialysis, patient was just feeling very sick did not feel he could complete dialysis so went to the emergency room. In the emergency room, patient was noted to be hyperkalemic at the 6.9, though it was slightly hemolyzed. Patient in the emergency room with stable and was sent to the progressive care unit due to the hyperkalemia. There was no EKG changes. It was felt by the emergency room physician, the patient did not require central line even peripheral IV access. Patient was started on hemodialysis and blood pressure dropped into the 70s. He did require about 200 cc of fluid and his pressure has not proved to the 90s. Patient states that he has been nauseated vomiting and diarrhea. But is also had some retching 2. Patient was having some nausea on the floor and did receive some Zofran. Patient was seen after dialysis and feeling much better. [] Past Medical History Past Medical History (Chronic Problems): Chronic Problems Hyperlipidemia (Chronic) Seizure disorder (Chronic) HTN (hypertension) (Chronic) Anemia of chronic disease (Chronic) Cardiomyopathy (Chronic) CHF (congestive heart failure) (Chronic) ESRD (end stage renal disease) on dialysis (Chronic) Allergies Penicillins Allergy (Verified 04/14/18 07:13) Unknown sulfamethoxazole [From Bactrim] Allergy (Verified 04/14/18 07:13) Swelling trimethoprim [From Bactrim] Allergy (Verified 04/14/18 07:13) Swelling Home Medications: Ambulatory Orders Medication Instructions Recorded Calcium Acetate [Phoslo Gel Cap] 1,334 mg PO TIDCM 03/08/14 Loperamide [Imodium] 2 - 4 mg PO Q6H PRN PRN 08/21/16 Allopurinol [Zyloprim] 100 mg PO DAILYCM 02/18/18 Diltiazem CD [Cardizem CD] 120 mg PO DAILY 02/18/18 Tamsulosin HCl [Flomax] 0.4 mg PO DAILY 02/18/18 Acetaminophen with Codeine 1 ea PO 4X/DAY PRN PRN #20 tab 04/03/18 [Tylenol with Codeine #3 Tablet] Carvedilol [Coreg (Beta Bree)] 3.125 mg PO BID 04/14/18 Hydroxyzine HCl 04/14/18 Isosorbide DN [Isordil] 5 mg PO TID 04/14/18 Levetiracetam 1 tab PO DAILY 04/14/18 Simvastatin 1 tab PO QHS 04/14/18 traMADol [Ultram] 1 tab PO Q8H PRN PRN 04/14/18 Surgical History: - - prosthetic right eye, Rt upper arm AVF, right adrenal gland removal for unknown reason Smoking Status: Current every day smoker Tobacco Use: Cigarettes - *Family History Maternal History Items: No pertinent history, - - No kidney disease Paternal History Items: No pertinent history Review of Systems Constitutional: Reports: Anorexia, Chills, Malaise, Weakness. Denies: Fever Eyes: Denies: Blurred vision, Double vision HEENT: Denies: Head Aches, Sinus Congestion, Sinus Drainage Cardiovascular: Denies: Chest Pain, Palpitations Respiratory: Denies: Cough, Shortness of breath at rest, Sputum production Gastrointestinal: Reports: Abdominal Pain, Diarrhea, Nausea, Vomiting Genitourinary: Reports: - - Minimal urine output even on good days but states that is gotten more scant as of late.. Denies: Dysuria Musculoskeletal: Denies: Joint Pain, Joint Tenderness Skin: Denies: Rash, Wounds Neurological: Denies: Numbness, Tingling, Focal weakness Psychiatric: Denies: Anxiety, Depression Hematologic/ Lymphatic: Denies: Easy Bruising, Easy Bleeding, Hx of blood clot Comment: A 10 point review of systems were negative except as mentioned in the history of present illness and the other review of systems. VTE Information - Inpt Only VTE Present on Admission: No VTE Mechan Device Prophylaxis: None VTE Pharm Prophylaxis ordered?: Yes Patient Problems: Active and Suspected Problems Hyperkalemia (Acute) SIRS (systemic inflammatory response syndrome) (Acute) Hypotension (Acute) - Physical Exam General: Alert, Cooperative, - - Uncomfortable. Afebrile. HEENT: Atraumatic, Normocephalic, - - No scleral icterus Oral: Moist Mucosa, No Gingival or Mucosal Lesions/ Ulcerations Neck: No Nodes, Thyroid Normal Size and Texture Lungs: Clear to auscultation, Normal air movement, No rhonchi, No wheeze Cardiovascular: Regular rate, Regular Rhythm, Normal S1, Normal S2, No murmurs Abdomen: Bowel Sounds Present, Soft, Non-Distended, No Hepato-splenomegaly, Tender - Slight Extremities: No edema, No Calf Tenderness Skin: No rashes, No breakdown Musculoskeletal: No Tenderness to Palpation of Joints or Extremities, No Muscle Wasting Neurological: Neuro grossly intact, Muscle tone normal Psych/Mental Status: Appropriate, Flat Affect Vital Signs Temp Pulse Resp BP Pulse Ox 36.2 C L 88 18 94/77 97 04/14/18 16:35 04/14/18 16:35 04/14/18 16:35 04/14/18 16:35 04/14/18 16:15 Oxygen Flow Rate (L/min) 2 Oxygen Delivery Method Nasal Cannula Weight: 68.7 kg Body Mass Index (BMI) 22.4 Finger Stick Blood Glucose 95 Intake and Output for Last 24 Hours 04/12/18 04/13/18 04/14/18 23:59 23:59 23:59 Output Total 400 / 400 Balance -400 / -400 Laboratory Tests Past 24 Hrs 04/14/18 04/14/18 08:10 08:10 WBC 10.3 RBC 4.69 Hgb 13.8 Hct 42.5 MCV 90.6 MCH 29.4 MCHC 32.5 RDW 14.2 RDW Differential 46.8 H Plt Count 211 MPV 11.8 Immature Gran % (Auto) 0.100 Neut % (Auto) 48.8 Lymph % (Auto) 37.2 [place] % (Auto) 11.2 H Eos % (Auto) 2.2 Baso % (Auto) 0.5 Absolute Neuts (auto) 5.0 Absolute Lymphs (auto) 3.85 Total Counted Not Reportable Sodium 131 L Potassium 6.9 H* Chloride 78 L Carbon Dioxide 31.0 Anion Gap 22 H BUN 79 H Creatinine 16.10 H* Estim Creat Clear Calc 5.00 Est GFR (MDRD) Af Amer 4 L Est GFR (MDRD) Non-Af 3 L BUN/Creatinine Ratio 4.9 L Glucose 93 Calcium 8.9 Total Bilirubin 0.60 AST 19 ALT 18 Alkaline Phosphatase 99 Troponin I 0.056 H Total Protein 10.0 H Albumin 3.8 Globulin 6.2 H Albumin/Globulin Ratio 0.6 L POC Glucose 04/14/18 04/14/18 04/14/18 14:20 12:51 12:20 POC Glucose 98 85 68 L 04/14/18 04/14/18 04/14/18 12:02 11:42 09:28 POC Glucose 56 L 67 L 95 Clinical Impression(s) from Imaging Studies Chest X-Ray 04/14/18 07:12 IMPRESSION: 1. No acute cardiopulmonary disease. 2. COPD. at 0742 Reported and signed by: Marc Loza MD Electronically Signed: Marc Loza, at 7:41 EST Tel , Service support , Assessment/Plan All Active Problems Chest pain (Acute) Abnormal stress test (Acute) Hyperkalemia (Acute) SIRS (systemic inflammatory response syndrome) (Acute) Hypotension (Acute) 1. Hyperkalemia Patient reportedly compliant with his dialysis sessions Partly artifactual given slight hemolysis Had hemodialysis today, will follow up labs this afternoon 2. Systemic inflammatory response syndrome Presumed due to viral gastroenteritis Respiratory viral panel sent Will also send out a stool viral Supportive management 3. Hypotension Likely due to hypovolemia Improved with giving some fluid with dialysis Monitor No need for ICU placement at this time 4. End-stage renal disease On dialysis today Follow-up lab work Nephrology on consultation 5. DVT prophylaxis with subcu heparin Code Visit Inpatient E&M: 52893 Init Hosp L3
[2018-04-14 18:51] LABS: Anion Gap 16 (5-15); BUN 42 mg/dL (7-18); BUN/Creat Ratio 4.3 RATIO (10-20); Calcium,Total 8.7 mg/dL (8.5-10.1); Chloride 89 mmol/L (98-107); EST Glomerular Filtration Rate 6 mL/min (>60); Est Glom Filt Rate - Afr Amer 7 mL/min (>60); Estimated Creatinine Clearance 7.99 ml/min; Glucose 137 mg/dL (74-106); Potassium 4.3 mmol/L (3.5-5.1); Sodium Level 133 mmol/L (136-145)
[2018-04-14 18:55] LABS: Creatinine, Serum 9.79 mg/dL (0.70-1.30)
[2018-04-14] MEDS: proMETHazine 25 MG/ML Syringe 12.5 MG IM (21:01)
[2018-04-14] MEDS: Carvedilol 3.125 MG TABLET PO (23:11)
[2018-04-14] MEDS: Atorvastatin Calcium 10 MG Tablet 5 MG PO (23:12)
[2018-04-14] MEDS: Heparin Injection (Vial) 5,000 UNIT/ML VIAL 5000 UNIT SC (23:12)
[2018-04-15] VITALS (18 sets, daily range): BP systolic 70–106; BP diastolic 45–70; PULSE 79–136; RESP 16–18; TEMP 36.2–36.8; O2SAT 95–98
[2018-04-15] MEDS: Ondansetron 8 MG Tablet PO (01:20)
[2018-04-15 05:48] LABS: Absolute Lymphocyte Count 2.12 X10^3/ul (0.83-4.51); Absolute Neutrophil Count 3.8 X10^3/uL (2.0-7.7); Basophil# 0.01 X10^3/uL; Basophil% 0.1 % (0-1); Eosinophil# 0.06 X10^3/uL; Eosinophils% 0.8 % (0-5); Hematocrit 42.9 % (40-54); Hemoglobin 13.7 g/dl (13.0-16.5); Lymphocyte # 2.12 X10^3/ul (4.0); Lymphocyte % 29.4 % (19-41); Mean Corp Hgb Conc 31.9 g/gl (32-36); Mean Corpuscular Hgb 29.1 pg (27.0-32.0); Mean Corpuscular Volume 91.1 fL (80-94); Mean Platelet Vol. 12.1 fl (6.2-12.0); Monocyte# 1.24 X10^3/uL; Monocyte% 17.2 % (0-10); Neutrophil # 3.76 X10^3/uL (2.7-7.7); Neutrophil % 52.4 % (47-70); Platelet Count 184 K/mm3 (150-450); RBC Distribution Width CV 14.2 % (11.6-14.6); RBC Distribution Width SD 46.7 fl (35.1-43.9); Red Blood Count 4.71 M/mm3 (4.6-6.2); White Blood Count 7.2 K/mm3 (4.4-11.0)
[2018-04-15 05:49] LABS: POSITIVE COUNT NO; POSITIVE DIFFERENTIAL NO; POSITIVE MORPHOLOGY NO
[2018-04-15 06:17] LABS: Anion Gap 19 (5-15); BUN 54 mg/dL (7-18); BUN/Creat Ratio 4.7 RATIO (10-20); Calcium,Total 8.5 mg/dL (8.5-10.1); Chloride 89 mmol/L (98-107); EST Glomerular Filtration Rate 5 mL/min (>60); Est Glom Filt Rate - Afr Amer 6 mL/min (>60); Estimated Creatinine Clearance 6.74 ml/min; Glucose 105 mg/dL (74-106); Potassium 5.4 mmol/L (3.5-5.1); Sodium Level 130 mmol/L (136-145)
[2018-04-15] MEDS: dilTIAZem CD 120 MG Capsule PO (09:23)
[2018-04-15] MEDS: Calcium Acetate 667 MG Capsule 1334 MG PO ×3 (09:23→18:22)
[2018-04-15] MEDS: levETIRAcetam 500 MG Tablet PO (09:23)
[2018-04-15] MEDS: Heparin Injection (Vial) 5,000 UNIT/ML VIAL 5000 UNIT SC ×2 (09:23→21:49)
[2018-04-15] MEDS: Allopurinol 100 MG Tablet PO (09:23)
[2018-04-15] MEDS: Carvedilol 3.125 MG TABLET PO (09:23)
[2018-04-15] MEDS: Tamsulosin HCl 0.4 MG Capsule PO (09:24)
--- NOTE | 2018-04-15 09:47 | CASEMGMT ---
RN CM Assessment Presentation: Hypercalemia. Could not complete dialysis Intro role of CM and purpose of RN CM assessment. Pt able to participate but does not meet eye contact and is giving short answers only. PCP: Harriet Villegas Preferred [facility]acy: [facility] Insurance: [facility] Prescription Benefit: yes, denies difficulty getting prescriptions. LNOK: Coby Peterson, Jesus Dialysis: M-W-F Living Arrangements: Lives independently per pt's report. Denied utilizing assist for ADL's, care needs. Transportation: Pt states he does not have license to drive, however states he uses [employer]. DME: states does not use DME, does not have at home per pt (no oxygen, CPAP or neb) DC PLAN: anticipate home on dc, f/u with [facility] as previously scheduled. PT/OT evaluations pending.
--- NOTE | 2018-04-15 11:52 | PN.RENAL_ITS ---
Patient Problems: Active and Suspected Problems Hyperkalemia (Acute) SIRS (systemic inflammatory response syndrome) (Acute) Hypotension (Acute) Subjective: no new complaints - Physical Exam General: Alert, Oriented x3, Cooperative HEENT: Atraumatic, PERRLA, EOMI, Normocephalic Neck: Supple, No JVD, Negative Carotid Bruits Lungs: Clear to auscultation, Normal air movement Cardiovascular: Regular rate, No murmurs Abdomen: Bowel Sounds Present, Soft, Non Tender Extremities: No edema, Capillary Refill Less than 3 Seconds Skin: No rashes, No breakdown Musculoskeletal: No Tenderness to Palpation of Joints or Extremities Neurological: Cranial nerves II-XII grossly intact Psych/Mental Status: Normal Affect, Appropriate Vital Signs Temp Pulse Resp BP Pulse Ox 98.2 F 136 H 16 106/70 98 04/15/18 09:14 04/15/18 11:09 04/15/18 09:14 04/15/18 09:14 04/15/18 09:14 Oxygen Flow Rate (L/min) 2 Oxygen Delivery Method Room Air Weight: 68.7 kg Body Mass Index (BMI) 22.4 Finger Stick Blood Glucose 95 Intake and Output for Last 24 Hours 04/13/18 04/14/18 04/15/18 23:59 23:59 23:59 Intake Total 420 / 420 330 / 330 Output Total 800 / 800 Balance -380 / -380 330 / 330 Microbiology Past 72 Hours 04/14/18 16:10 Respiratory Panel (PCR) - Final Mucosa - Nasopharyngeal Laboratory Tests Past 24 Hrs 04/14/18 04/15/18 04/15/18 18:20 05:18 05:18 WBC 7.2 RBC 4.71 Hgb 13.7 Hct 42.9 MCV 91.1 MCH 29.1 MCHC 31.9 L RDW 14.2 RDW Differential 46.7 H Plt Count 184 MPV 12.1 H Immature Gran % (Auto) 0.100 Neut % (Auto) 52.4 Lymph % (Auto) 29.4 [place] % (Auto) 17.2 H Eos % (Auto) 0.8 Baso % (Auto) 0.1 Absolute Neuts (auto) 3.8 Absolute Lymphs (auto) 2.12 Total Counted Not Reportable Sodium 133 L 130 L Potassium 4.3 5.4 H Chloride 89 L 89 L Carbon Dioxide 28.0 22.0 Anion Gap 16 H 19 H BUN 42 H 54 H Creatinine 9.79 H* 11.60 H* Estim Creat Clear Calc 7.99 6.74 Est GFR (MDRD) Af Amer 7 L 6 L Est GFR (MDRD) Non-Af 6 L 5 L BUN/Creatinine Ratio 4.3 L 4.7 L Glucose 137 H 105 Calcium 8.7 8.5 POC Glucose 04/14/18 04/14/18 04/14/18 14:20 12:51 12:20 POC Glucose 98 85 68 L 04/14/18 04/14/18 12:02 11:42 POC Glucose 56 L 67 L Medical Necessity - Tobacco Use Smoking Status: Current every day smoker Tobacco Use: Cigarettes Assessment/Plan All Active Problems Chest pain (Acute) Abnormal stress test (Acute) Hyperkalemia (Acute) SIRS (systemic inflammatory response syndrome) (Acute) Hypotension (Acute) ESRD. HD MWF schedule. HD tomorrow as per schedule Hyperkalemia. better weakness. respiratory panel negative ok to dc
[2018-04-15] MEDS: proMETHazine 25 MG/ML Syringe 12.5 MG IM (12:58)
--- NOTE | 2018-04-15 14:48 | DCINST_ITS ---
- Discharge Diagnoses Current Active Problems: Current Active and Chronic Problems Hyperkalemia (Acute) SIRS (systemic inflammatory response syndrome) (Acute) Hypotension (Acute) You will use the following diet at home:: Renal (restricted protein/sodium) Your food should be the consistency of: Regular Your liquids should be the consistency of: Regular/Thin Discharge Activity: Return to Normal Activity Call your doctor if you observe: Shortness of breath, Dizziness, - - intractable nausea and vomiting. Allergies/Adverse Reactions: Allergies Penicillins Allergy (Verified 04/14/18 07:13) Unknown sulfamethoxazole [From Bactrim] Allergy (Verified 04/14/18 07:13) Swelling trimethoprim [From Bactrim] Allergy (Verified 04/14/18 07:13) Swelling Medications to take at Discharge Calcium Acetate [Phoslo Gel Cap] 1,334 mg PO TIDCM 03/08/14 Loperamide [Imodium] 2 - 4 mg PO Q6H PRN PRN 08/21/16 Allopurinol [Zyloprim] 100 mg PO DAILYCM 02/18/18 Diltiazem CD [Cardizem CD] 120 mg PO DAILY 02/18/18 Tamsulosin HCl [Flomax] 0.4 mg PO DAILY 02/18/18 Carvedilol [Coreg (Beta Bree)] 3.125 mg PO BID 04/14/18 Hydroxyzine HCl 04/14/18 Isosorbide DN [Isordil] 5 mg PO TID 04/14/18 Levetiracetam 1 tab PO DAILY 04/14/18 Simvastatin 1 tab PO QHS 04/14/18 traMADol [Ultram] 1 tab PO Q8H PRN PRN 04/14/18 Acetaminophen with Codeine [Tylenol with Codeine #3 Tablet] 1 ea PO 4X/DAY PRN PRN 3 Days #12 tab 04/15/18 Ondansetron [Zofran] 8 mg PO Q8H PRN PRN #20 tablet 04/15/18 The following prescriptions were given: Ondansetron [Zofran] 8 mg PO Q8H PRN PRN #20 tablet PRN Reason: nausea vomiting Acetaminophen with Codeine [Tylenol with Codeine #3 Tablet] 1 ea PO 4X/DAY PRN PRN 3 Days #12 tab PRN Reason: Pain Primary Care Physician: Sesar Quiñones MD [Primary Care Provider] - Within 2 Weeks Test Results: Test results from this visit will be discussed in further detail at your follow- up appointment, if applicable. [facility] When: 04/16/18 Proposed Discharge Date: 04/15/18
--- NOTE | 2018-04-15 14:51 | DS.PCM_ITS ---
Discharge Date and Diagnosis - Problem List Patient Problems: Active and Suspected Problems Hyperkalemia (Acute) SIRS (systemic inflammatory response syndrome) (Acute) Hypotension (Acute) Date of Admission: 04/14/18 Date of Discharge: 04/15/18 - Primary Discharge Diagnosis Active and Suspected Problems Hyperkalemia (Acute) SIRS (systemic inflammatory response syndrome) (Acute) Hypotension (Acute) - Secondary Discharge Diagnosis Chronic Problems Hyperlipidemia (Chronic) Seizure disorder (Chronic) HTN (hypertension) (Chronic) Anemia of chronic disease (Chronic) Cardiomyopathy (Chronic) CHF (congestive heart failure) (Chronic) ESRD (end stage renal disease) on dialysis (Chronic) Hospital Course and Treatment Imaging Results: Clinical Impression(s) from Imaging Studies Chest X-Ray 04/14/18 07:12 IMPRESSION: 1. No acute cardiopulmonary disease. 2. COPD. at 0742 Reported and signed by: Marc Loza MD Electronically Signed: Marc Loza, at 7:41 EST Tel , Service support , Operations: None Procedures: Dialysis Summary of Care Provided: The patient is a 57 year old M. Patient met criteria for systemic inflammatory response syndrome. Respiratory panel was performed and was negative. Today, the patient is feeling better from that perspective.'s felt the patient may have had a viral gastroenteritis that may have precipitated his symptoms. Still feels slightly nauseated but much better is able to tolerate some oral. The big issue that brought the patient in the hospital was fact that he was hyperkalemic with potassium 6.9, though granted it was partially hemolyzed. Patient was sent for urgent dialysis and a subsequent potassium was 4.3, today is 5.4 but no EKG changes been noted. Patient did have some hypotension and did actually receive some dialysis but has remained normotensive subsequently. Patient is overall feeling better and will be discharged home. Patient will continue with his dialysis every Saturday. [] Patient Problems: Active and Suspected Problems Hyperkalemia (Acute) SIRS (systemic inflammatory response syndrome) (Acute) Hypotension (Acute) - Physical Exam General: Alert, Cooperative, No apparent distress HEENT: Atraumatic, Normocephalic Oral: Moist Mucosa, No Gingival or Mucosal Lesions/ Ulcerations Neck: No Nodes, Thyroid Normal Size and Texture Lungs: Clear to auscultation, Normal air movement, No rhonchi, No wheeze Cardiovascular: Regular rate, Regular Rhythm, Normal S1, Normal S2 Abdomen: Bowel Sounds Present, Soft, Non Tender, Non-Distended, No Hepato- splenomegaly Vital Signs Temp Pulse Resp BP Pulse Ox 36.8 C 136 H 16 106/70 98 04/15/18 09:14 04/15/18 11:09 04/15/18 09:14 04/15/18 09:14 04/15/18 09:14 Oxygen Flow Rate (L/min) 2 Oxygen Delivery Method Room Air Weight: 68.7 kg Body Mass Index (BMI) 22.4 Finger Stick Blood Glucose 95 Intake and Output for Last 24 Hours 04/13/18 04/14/18 04/15/18 23:59 23:59 23:59 Intake Total 420 / 420 330 / 330 Output Total 800 / 800 Balance -380 / -380 330 / 330 Microbiology Past 72 Hours 04/14/18 16:10 Respiratory Panel (PCR) - Final Mucosa - Nasopharyngeal Laboratory Tests Past 24 Hrs 04/14/18 04/15/18 04/15/18 18:20 05:18 05:18 WBC 7.2 RBC 4.71 Hgb 13.7 Hct 42.9 MCV 91.1 MCH 29.1 MCHC 31.9 L RDW 14.2 RDW Differential 46.7 H Plt Count 184 MPV 12.1 H Immature Gran % (Auto) 0.100 Neut % (Auto) 52.4 Lymph % (Auto) 29.4 [place] % (Auto) 17.2 H Eos % (Auto) 0.8 Baso % (Auto) 0.1 Absolute Neuts (auto) 3.8 Absolute Lymphs (auto) 2.12 Total Counted Not Reportable Sodium 133 L 130 L Potassium 4.3 5.4 H Chloride 89 L 89 L Carbon Dioxide 28.0 22.0 Anion Gap 16 H 19 H BUN 42 H 54 H Creatinine 9.79 H* 11.60 H* Estim Creat Clear Calc 7.99 6.74 Est GFR (MDRD) Af Amer 7 L 6 L Est GFR (MDRD) Non-Af 6 L 5 L BUN/Creatinine Ratio 4.3 L 4.7 L Glucose 137 H 105 Calcium 8.7 8.5 Discharge Diet: Renal Diet Discharge Activity: Return to Normal Activity Call your doctor if you observe: Shortness of breath, Dizziness, - - intractable nausea and vomiting. Home Medications: Medications to take at Discharge Calcium Acetate [Phoslo Gel Cap] 1,334 mg PO TIDCM 03/08/14 Loperamide [Imodium] 2 - 4 mg PO Q6H PRN PRN 08/21/16 Allopurinol [Zyloprim] 100 mg PO DAILYCM 02/18/18 Diltiazem CD [Cardizem CD] 120 mg PO DAILY 02/18/18 Tamsulosin HCl [Flomax] 0.4 mg PO DAILY 02/18/18 Carvedilol [Coreg (Beta Bree)] 3.125 mg PO BID 04/14/18 Hydroxyzine HCl 04/14/18 Isosorbide DN [Isordil] 5 mg PO TID 04/14/18 Levetiracetam 1 tab PO DAILY 04/14/18 Simvastatin 1 tab PO QHS 04/14/18 traMADol [Ultram] 1 tab PO Q8H PRN PRN 04/14/18 Acetaminophen with Codeine [Tylenol with Codeine #3 Tablet] 1 ea PO 4X/DAY PRN P RN 3 Days #12 tab 04/15/18 Ondansetron [Zofran] 8 mg PO Q8H PRN PRN #20 tablet 04/15/18 Following Prescrptions Were Given to Patient: Ondansetron [Zofran] 8 mg PO Q8H PRN PRN #20 tablet PRN Reason: nausea vomiting Acetaminophen with Codeine [Tylenol with Codeine #3 Tablet] 1 ea PO 4X/DAY PRN PRN 3 Days #12 tab PRN Reason: Pain Primary Care Physician: Sesar Quiñones MD [Primary Care Provider] - Within 2 Weeks Please Follow [facility] With: [facility] When: 04/16/18 Disposition: Home Minutes spent on discharge:: 28 Patient Condition:: Good Medical Necessity - Tobacco Use Smoking Status: Current every day smoker Tobacco Use: Cigarettes Meaningful Use Info Meaningful Use Diagnoses (Choose all that apply): None applicable Code Visit OBSV E&M: 03611 Observation care discharge
--- NOTE | 2018-04-15 18:14 | NURSING ---
Reviewed DC information with patient and set up to shower prior to leaving. Patient became very unsteady in shower. RN and ELEVATOR TECHNICIAN assisted back to bed. BP 70/45. MD contacted. DC canceled.
[2018-04-15] MEDS: Atorvastatin Calcium 10 MG Tablet 5 MG PO (21:48)
[2018-04-16] VITALS (19 sets, daily range): BP systolic 64–94; BP diastolic 43–64; PULSE 78–118; RESP 16–18; TEMP 36.1–37.1; O2SAT 95–100
[2018-04-16] MEDS: 0.9% NaCl Peripheral Flush Adult/Peds IV ×3 (02:30→03:14)
--- NOTE | 2018-04-16 11:40 | PCM.PN.BLA ---
Progress Note patient was seen on dialysis feels better, wants to go home today breathing is ok No GI symptoms ok to dc Bp on lower side. will hold bP meds if remains low appetite is fair
--- NOTE | 2018-04-16 11:49 | PN_ITS ---
Patient Problems: Active and Suspected Problems Hyperkalemia (Acute) SIRS (systemic inflammatory response syndrome) (Acute) Hypotension (Acute) Subjective: Feeling ok. On HD and had hypotension and felt weak. When his BP came up, he felt better. Vitals/I&O's: Vital Signs Temp Pulse Resp BP Pulse Ox 36.5 C L 83 16 93/64 100 04/16/18 09:55 04/16/18 11:07 04/16/18 09:55 04/16/18 09:55 04/16/18 09:55 Oxygen Flow Rate (L/min) 2 Oxygen Delivery Method Room Air Weight: 68.85 kg Body Mass Index (BMI) 22.4 Finger Stick Blood Glucose 95 Intake and Output for Last 24 Hours 04/14/18 04/15/18 04/16/18 23:59 23:59 23:59 Intake Total 420 / 420 1210 / 1210 500 / 500 Output Total 800 / 800 Balance -380 / -380 1210 / 1210 500 / 500 General: Alert, Cooperative, No apparent distress, - - on dialysis HEENT: Atraumatic, Normocephalic Oral: Moist Mucosa, No Gingival or Mucosal Lesions/ Ulcerations Neck: No Nodes, Thyroid Normal Size and Texture Lungs: Clear to auscultation, Normal air movement, No rhonchi Cardiovascular: Regular rate, Regular Rhythm, Normal S1, Normal S2 Abdomen: Bowel Sounds Present, Soft, Non Tender, Non-Distended, No Hepato- splenomegaly Extremities: No edema, No Calf Tenderness Skin: No rashes, No breakdown Psych/Mental Status: Normal Affect, Appropriate Microbiology Past 72 Hours 04/14/18 16:10 Mucosa - Nasopharyngeal Respiratory Panel (PCR) - Final Current Medications Acetaminophen/Codeine Phosphate (Tylenol#3) 1 tablet PO 4X/DAY PRN PRN PRN Reason: PAIN Albuterol Sulfate (Ventolin Aerosols) 2.5 mg INHALATION Q2H PRN PRN PRN Reason: SHORTNESS OF BREATH Allopurinol (Zyloprim) 100 mg PO DAILYCM [facility] Last Admin: 04/15/18 09:23 Dose: 100 mg Atorvastatin Calcium (Lipitor) 5 mg PO QHS [facility] Last Admin: 04/15/18 21:48 Dose: 5 mg Calcium Acetate (Phoslo Gel Cap) 1,334 mg PO TIDCM [facility] Last Admin: 04/16/18 10:56 Dose: Not Given Carvedilol (Coreg) 3.125 mg PO BID [facility] Last Admin: 04/15/18 22:04 Dose: Not Given Diltiazem HCl (Cardizem Cd) 120 mg PO DAILY [facility] Last Admin: 04/15/18 09:23 Dose: 120 mg Heparin Sodium (Porcine) () 2,500 units IV UD PRN PRN Reason: HEPARIN FLUSH Heparin Sodium (Porcine) (Heparin Na) 5,000 unit SC Q12 [facility] Last Admin: 04/16/18 10:56 Dose: Not Given Hydroxyzine Pamoate (Vistaril Pamoate Capsule) 25 mg PO TID PRN PRN Reason: ITCHING Levetiracetam (Keppra Tablet) 500 mg PO DAILY [facility] Last Admin: 04/15/18 09:23 Dose: 500 mg Loperamide HCl (Imodium) 2 - 4 mg PO Q6H PRN PRN PRN Reason: Diarrhea Magnesium Hydroxide (Milk Of Magnesia) 30 ml PO DAILY PRN PRN Reason: Constipation Nutritional Formula (Nepro Carb Steady) 120 ml PO 4X/DAY [facility] Last Admin: 04/16/18 10:57 Dose: Not Given Ondansetron HCl (Zofran) 8 mg PO Q8H PRN PRN PRN Reason: nausea vomiting Last Admin: 04/15/18 01:20 Dose: 8 mg Promethazine HCl (Phenergan) 12.5 mg IM Q6H PRN PRN PRN Reason: NAUSEA/VOMITING Last Admin: 04/15/18 12:58 Dose: 12.5 mg Sodium Chloride () 5 - 15 ml IV UD PRN PRN Reason: SALINE FLUSH Last Admin: 04/16/18 03:14 Dose: 10 ml Sodium Chloride () 10 ml IV UD PRN PRN Reason: Dialysis Catheter Flush Tamsulosin HCl (Flomax) 0.4 mg PO DAILY [facility] Last Admin: 04/15/18 09:24 Dose: 0.4 mg Tramadol HCl (Ultram) 1 mg PO Q8H PRN PRN PRN Reason: PAIN Medical Necessity - Tobacco Use Smoking Status: Current every day smoker Tobacco Use: Cigarettes Assessment/Plan All Active Problems Chest pain (Acute) Abnormal stress test (Acute) Hyperkalemia (Acute) SIRS (systemic inflammatory response syndrome) (Acute) Hypotension (Acute) 1. Hyperkalemia Patient reportedly compliant with his dialysis sessions Partly artifactual given slight hemolysis Had hemodialysis today, will follow up labs this afternoon 2. Systemic inflammatory response syndrome Presumed due to viral gastroenteritis Respiratory viral panel sent Will also send out a stool viral Supportive management 3. Hypotension Likely due to hypovolemia Improved with giving some fluid with dialysis Monitor No need for ICU placement at this time check orthostatic vitals consider ACTH stim test if still hypotensive. 4. End-stage renal disease On dialysis today Follow-up lab work Nephrology on consultation 5. DVT prophylaxis with subcu heparin Code Visit Inpatient E&M: 47384 Subs Hosp L2
--- NOTE | 2018-04-16 13:03 | DIALYSIS ---
Hemodialysis x 3.5 hours completed. Pt tolerated tx well, but had episodes of hypotension. Fluid balance -1000ml. Ary pulled. Hemostasis achieved. Dressing applied. Report given to staff research scientist. Pt stable
[2018-04-16] MEDS: Tamsulosin HCl 0.4 MG Capsule PO (14:50)
[2018-04-16] MEDS: levETIRAcetam 500 MG Tablet PO (14:50)
[2018-04-16] MEDS: Calcium Acetate 667 MG Capsule 1334 MG PO ×2 (14:50→17:04)
[2018-04-16] MEDS: Allopurinol 100 MG Tablet PO (14:50)
[2018-04-16] MEDS: Nepro Liquid 120 ML LIQUID PO ×2 (14:53→17:03)
--- NOTE | 2018-04-16 15:33 | NURSING ---
spoke with Jeff In ID as long as pt is not vomiting or having diarrhea ok to take out of special contact precautions
[2018-04-16] MEDS: Heparin Injection (Vial) 5,000 UNIT/ML VIAL 5000 UNIT SC (22:08)
[2018-04-16] MEDS: Atorvastatin Calcium 10 MG Tablet 5 MG PO (22:08)
[2018-04-17] VITALS (9 sets, daily range): BP systolic 72–105; BP diastolic 40–65; PULSE 84–118; RESP 16–18; TEMP 36.6–37; O2SAT 95–98
[2018-04-17] MEDS: 0.9% NaCl Peripheral Flush Adult/Peds IV ×2 (01:49→06:27)
[2018-04-17] MEDS: Cosyntropin 0.25 MG Vial IV (06:28)
[2018-04-17 06:40] LABS: Anion Gap 14 (5-15); BUN 39 mg/dL (7-18); BUN/Creat Ratio 3.7 RATIO (10-20); Calcium,Total 8.5 mg/dL (8.5-10.1); Chloride 97 mmol/L (98-107); EST Glomerular Filtration Rate 5 mL/min (>60); Est Glom Filt Rate - Afr Amer 7 mL/min (>60); Glucose 95 mg/dL (74-106); Potassium 4.2 mmol/L (3.5-5.1); Sodium Level 139 mmol/L (136-145)
[2018-04-17] MEDS: Carvedilol 3.125 MG TABLET PO (08:40)
[2018-04-17] MEDS: levETIRAcetam 500 MG Tablet PO (08:40)
[2018-04-17] MEDS: Heparin Injection (Vial) 5,000 UNIT/ML VIAL 5000 UNIT SC (08:40)
[2018-04-17] MEDS: Calcium Acetate 667 MG Capsule 1334 MG PO (08:40)
[2018-04-17] MEDS: Allopurinol 100 MG Tablet PO (08:40)
[2018-04-17] MEDS: Tamsulosin HCl 0.4 MG Capsule PO (08:40)
[2018-04-17] MEDS: dilTIAZem CD 120 MG Capsule PO (08:40)
--- NOTE | 2018-04-17 11:52 | PCM.PN.HOSP ---
Patient Problems: Active and Suspected Problems Hyperkalemia (Acute) SIRS (systemic inflammatory response syndrome) (Acute) Hypotension (Acute) Subjective: Feels good. No further dizziness. Tolerating diet with no issues. Objective: Orthostatic vital signs were performed at bedside. While sitting, blood pressure was 115/58, standing, was 75/58. Patient was asymptomatic. Patient was ambulated in his room and had normal gait and demonstrated no further dizziness. Took several attempts while he was standing for his blood pressure to read. Vitals/I&O's: Vital Signs Temp Pulse Resp BP Pulse Ox 36.7 C 84 16 105/65 96 04/17/18 08:25 04/17/18 11:02 04/17/18 08:25 04/17/18 08:25 04/17/18 08:25 Oxygen Flow Rate (L/min) 2 Oxygen Delivery Method Room Air Weight: 68.85 kg Body Mass Index (BMI) 22.4 Finger Stick Blood Glucose 95 Orthostatic Vital Signs Start: 04/16/18 12:24 Freq: q24h Status: Active Protocol: Activity Type Activity Date Activity User E-Sign Co-Sign Detail Recorded Client Recorded Date Recorded By Document 04/17/18 03:30 AML [id number] 04/17/18 03:38 AML 04/17/18 03:30 Orthostatic Vitals Standing -Blood Pressure (90/60-120/80) 72/53 L -Extremity Use Right Arm -Pulse Rate (60-100) 98 Sitting -Blood Pressure (90/60-120/80) 72/57 L -Extremity Use Right Arm -Pulse Rate (60-100) 102 H Lying -Blood Pressure (90/60-120/80) 82/52 L -Extremity Use Right Arm -Pulse Rate (60-100) 88 Intake and Output for Last 24 Hours 04/15/18 04/16/18 04/17/18 23:59 23:59 23:59 Intake Total 1210 / 1210 960 / 960 120 / 120 Output Total 1000 / 1000 Balance 1210 / 1210 -40 / -40 120 / 120 General: Alert, No apparent distress Microbiology Past 72 Hours 04/14/18 16:10 Mucosa - Nasopharyngeal Respiratory Panel (PCR) - Final Laboratory Results 04/17/18 05:35: Sodium 139, Potassium 4.2, Chloride 97 L, Carbon Dioxide 28.0, Anion Gap 14, BUN 39 H, Creatinine 10.60 H*, Estim Creat Clear Calc 7.40, Est GFR (MDRD) Af Amer 7 L, Est GFR (MDRD) Non-Af 5 L, BUN/Creatinine Ratio 3.7 L, Glucose 95, Calcium 8.5 04/17/18 05:35: Cortisol 18.00 04/17/18 07:00: Cortisol 25.40 H 04/17/18 07:30: Cortisol 27.30 H Current Medications Acetaminophen/Codeine Phosphate (Tylenol#3) 1 tablet PO 4X/DAY PRN PRN PRN Reason: PAIN Albuterol Sulfate (Ventolin Aerosols) 2.5 mg INHALATION Q2H PRN PRN PRN Reason: SHORTNESS OF BREATH Allopurinol (Zyloprim) 100 mg PO DAILYCM [facility] Last Admin: 04/17/18 08:40 Dose: 100 mg Atorvastatin Calcium (Lipitor) 5 mg PO QHS [facility] Last Admin: 04/16/18 22:08 Dose: 5 mg Calcium Acetate (Phoslo Gel Cap) 1,334 mg PO TIDCM [facility] Last Admin: 04/17/18 08:40 Dose: 1,334 mg Carvedilol (Coreg) 3.125 mg PO BID [facility] Last Admin: 04/17/18 08:40 Dose: 3.1249 mg Diltiazem HCl (Cardizem Cd) 120 mg PO DAILY [facility] Last Admin: 04/17/18 08:40 Dose: 120 mg Heparin Sodium (Porcine) () 2,500 units IV UD PRN PRN Reason: HEPARIN FLUSH Heparin Sodium (Porcine) (Heparin Na) 5,000 unit SC Q12 [facility] Last Admin: 04/17/18 08:40 Dose: 5,000 unit Hydroxyzine Pamoate (Vistaril Pamoate Capsule) 25 mg PO TID PRN PRN Reason: ITCHING Levetiracetam (Keppra Tablet) 500 mg PO DAILY [facility] Last Admin: 04/17/18 08:40 Dose: 500 mg Loperamide HCl (Imodium) 2 - 4 mg PO Q6H PRN PRN PRN Reason: Diarrhea Magnesium Hydroxide (Milk Of Magnesia) 30 ml PO DAILY PRN PRN Reason: Constipation Nutritional Formula (Nepro Carb Steady) 120 ml PO 4X/DAY [facility] Last Admin: 04/17/18 08:41 Dose: Not Given Ondansetron HCl (Zofran) 8 mg PO Q8H PRN PRN PRN Reason: nausea vomiting Last Admin: 04/15/18 01:20 Dose: 8 mg Promethazine HCl (Phenergan) 12.5 mg IM Q6H PRN PRN PRN Reason: NAUSEA/VOMITING Last Admin: 04/15/18 12:58 Dose: 12.5 mg Sodium Chloride () 5 - 15 ml IV UD PRN PRN Reason: SALINE FLUSH Last Admin: 04/17/18 06:27 Dose: 10 ml Sodium Chloride () 10 ml IV UD PRN PRN Reason: Dialysis Catheter Flush Tamsulosin HCl (Flomax) 0.4 mg PO DAILY [facility] Last Admin: 04/17/18 08:40 Dose: 0.4 mg Tramadol HCl (Ultram) 1 mg PO Q8H PRN PRN PRN Reason: PAIN Medical Necessity - Tobacco Use Smoking Status: Current every day smoker Tobacco Use: Cigarettes Assessment/Plan All Active Problems Chest pain (Acute) Abnormal stress test (Acute) Hyperkalemia (Acute) SIRS (systemic inflammatory response syndrome) (Acute) Hypotension (Acute) 1. Hyperkalemia resolved patient reportedly compliant with his dialysis sessions Partly artifactual given slight hemolysis Had hemodialysis today, will follow up labs this afternoon 2. Systemic inflammatory response syndrome Presumed due to viral gastroenteritis Respiratory viral panel sent Will also send out a stool viral Supportive management 3. Hypotension Likely due to hypovolemia Improved with giving some fluid with dialysis Monitor No need for ICU placement at this time check orthostatic vitals consider ACTH stim test negative 4. End-stage renal disease Had HD on 04/14 and DC home. Code Visit Inpatient E&M: [id number] Disch Hosp
--- NOTE | 2018-04-17 13:48 | CASEMGMT ---
ENRIQUE REIS assessment: Face to Face with patient for initial transition planning/care coordination assessment. ENRIQUE REIS introduced self and role at [facility], pt voices understanding and consents to assessment at this time. Pt is lying in bed in no distress at this time. Pt is A/Ox4 at this time and answers all questions appropriately at this time. Care providers, pharmacy, and demographics verified/updated at this time. PCP: [facility] Specialists: Pt states does not currently have any specialists. Preferred Pharmacy: [facility] retail pharmacy[facility] per pt Insurance: [facility] Prescription Benefit: [facility] Living Will/HPOA: Pt states does not have LW/HPOA and is interested in info at this time, but states does not want to complete. LNOK: Coby Peterson, (does not currently live with her); Rasta Peterson, brother Living Arrangements: Pt states lives alone in apartment with no stairs and states no concerns at home at this time. Transportation: Pt states friends drive or uses public transportation and states no transportation concerns at this time. DME/HHC: Pt states has no current DME or need for any at this time. Pt states no hx of HHC or SNF in the past. Pt states no concerns with going home at time of discharge. Pt states is disabled. Pt states smokes cigarettes occasionally and does not drink ETOH. Pt states no further concerns/needs at this time. CM to follow for any further discharge planning/needs. Advised pt to ask for CM if any further questions/concerns/needs arise, voices understanding. Plan: [place] ENRIQUE REIS
--- NOTE | 2018-04-18 14:52 | CASEMGMT ---
ENRIQUE REIS DC PHONE CALL DC DATE: 04/17/18 DC DISPOSITION: Home LACE/STRATA: 01/11 Intro role of CM to patient. Discussed medications, especially Ultram, Tylenol with codeine and Zofran. F/U appointment has been made. No further questions. Pt asked what to do if he runs out of medications. ENRIQUE REIS advised calling his PCP to review medication needs and if appropriate, physician could call in prescription. Pt has medications @ home right now as he states he filled his prescriptions. Wilner AZEVEDO RN ACM
== END 2018-04-17 14:25 | disposition home or self-care (01) | DRG 640 ==
LOC: ED 09:09 → PCU 10:06
PROVIDERS: Emergency Provider Emergency Medicine; Family Provider Family Medicine; PCP Family Medicine
DX: E87.5 Hyperkalemia (principal); N18.6 End stage renal disease; I13.2 Hypertensive heart and chronic kidney disease with heart failure and with stage 5 chronic kidney disease, or end stage renal disease; I42.9 Cardiomyopathy, unspecified; E78.5 Hyperlipidemia, unspecified; G40.909 Epilepsy, unspecified, not intractable, without status epilepticus; F17.210 Nicotine dependence, cigarettes, uncomplicated; A08.4 Viral intestinal infection, unspecified; E86.1 Hypovolemia; D63.8 Anemia in other chronic diseases classified elsewhere; I50.9 Heart failure, unspecified; Z99.2 Dependence on renal dialysis
CPT/HCPCS: 36415; 71045; 80048; 80053; 82533; 82962; 84484; 85025; 87633; 90937; 93005; 94640; 99284; 99406; J7030; J7040; A4216; G0257; J0834; J2405

== ENCOUNTER 2018-10-26 19:27 | Emergency (ER) | payer MEDICARE, SELFPAY ==
[2018-04-14 11:18] VITALS: BMI 22.4
[2018-10-26 19:28] VITALS: BP 143/88; PULSE 78; RESP 15; TEMP 36.8; O2SAT 96; BMI 25.1
--- NOTE | 2018-10-26 20:19 | RAD_ITS ---
STUDY: X-RAY CHEST REASON FOR EXAM: Male, 58 years old. SOB. TECHNIQUE: Portable chest. COMPARISON: 04/14/2018. FINDINGS: No pleural effusion. Mild increased markings in the right lower lobe, suspicious for pneumonia. There is mild cardiac enlargement. Normal mediastinum and anselmo. Normal visualized pulmonary arteries. Normal visualized aortic arch and descending thoracic aorta. Normal visualized thoracic spine. Normal visualized ribs, clavicles, and shoulders. There is no demonstrated abnormality of the visualized soft tissue structures of the upper abdomen. RAD/Chest 1 View (Portable) IMPRESSION: Right lower lobe pneumonia. Electronically Signed: Nora Sandoval MD at 23:05 EDT Tel , Service support ,
--- NOTE | 2018-10-26 20:30 | EKG12_ITS ---
Test Reason : SOB Blood Pressure : / mmHG Vent. Rate : 085 BPM Atrial Rate : 085 BPM P-R Int : 194 ms QRS Dur : 162 ms QT Int : 468 ms P-R-T Axes : 057 025 184 degrees QTc Int : 556 ms Sinus rhythm with Premature supraventricular complexes Left bundle branch block Abnormal ECG Confirmed by MODESTA DINH, MEHDI ([id number]), features editor BHAVANI JEREZ ([id number]) on 10/28/2018 1:38:30 PM Referred By: BLANCHE Confirmed By:MEHDI BYERS MD
--- NOTE | 2018-10-26 20:45 | ED.DCSUM_ITS ---
- ER Visit Summary Date of Service: 10/26/18 Chief Complaint: Shortness of breath History of Present Illness: The patient is a 58 M history of hypertension and end-stage renal disease his dialysis he is dialyzed Saturday and had a full run on Saturday. States his been feeling well today around 10 AM started having shortness of breath. He does have a cough of white to brown sputum. No hemoptysis. No chest pain. No fever. No melena. He denies any cardiac history. He denies any fever or chills. Physical Examination: Middle-aged male appearing no acute distress. Vital signs are stable afebrile. Pulse ox 96% on room air no signs of hypoxia. H EENT exam unremarkable. Neck nontender no JVD. Lungs clear to auscultation bilaterally. Heart regular rhythm no murmur. Abdomen soft nontender. Normal bowel sounds no peritoneal signs. Remedies moves all 4. Fistula right upper arm with thrill. Calves nontender without edema or cords. Neurologically is awake and alert. Test Results: EKG is a sinus rhythm rate 85 with an old left bundle branch block is been seen on prior EKGs. CBC White count of 6. Hemoglobin of 10 hematocrit of 30 which is his baseline. Electrolytes show potassium of 5.9 is a dialysis patient his last dialysis was on Saturday and his BUN is 68 his creatinine is 13. Troponin is 0.027. Chest x-ray shows chronic changes. There is more dense area in the right lower lobe that is either pulmonary vascular edema versus an early infiltrate. Read both by myself and the radiologist. I did obtain a lateral film and it does not like a streaky infiltrate. Emergency Department Course and Treatment: Patient with shortness of breath and cough with a history [place] dialysis[place] [id number]. He is comfortable being discharged home. Will be started on Zithromax Z-CARLOS given first dose in the ER. Given that he is not febrile, not hypoxic and has a normal white count and clinically looks well and comfortable is being treated as an outpatient. Treatment Plan: Zithromax for 4 more days starting on Saturday. Disposition: Discharge Impression: Dyspnea secondary to right lower lobe pneumonia History of end-stage renal disease dialysis Hyperkalemia This note was generated with [employer] software. It may contain incorrect words, spelling, and punctuation that were not noted in review of the chart prior to signing ED Disposition - Plan for ED Patient: Referrals: Sesar Quiñones MD [Primary Care Provider] -
--- NOTE | 2018-10-26 21:11 | ED.RN ---
called lab for lab draw. pt dialysis. can only use left arm.
[2018-10-26 21:31] VITALS: PULSE 84; O2SAT 96
[2018-10-26 21:38] LABS: Absolute Lymphocyte Count 1.88 X10^3/uL (0.83-4.51); Absolute Neutrophil Count 3.5 X10^3/uL (2.0-7.7); Basophil# 0.03 X10^3/uL; Basophil% 0.5 % (0-1); Eosinophil# 0.21 X10^3/uL; Eosinophils% 3.5 % (0-5); Hematocrit 30.8 % (40-54); Hemoglobin 10.2 g/dL (13.0-16.5); Lymphocyte # 1.88 X10^3/ul (4.0); Lymphocyte % 31.3 % (19-41); Mean Corp Hgb Conc 33.1 g/dL (32-36); Mean Corpuscular Hgb 30.2 pg (27.0-32.0); Mean Corpuscular Volume 91.1 fL (80-94); Mean Platelet Vol. 10.7 fl (6.2-12.0); Monocyte# 0.42 X10^3/uL; NRBC Flagged by Analyzer 0 % (0-5); Neutrophil # 3.46 X10^3/uL (2.7-7.7); Neutrophil % 57.5 % (47-70); Platelet Count 145 K/mm3 (150-450); RBC Distribution Width CV 14.1 % (11.6-14.6); RBC Distribution Width SD 46.9 fl (35.1-43.9); Red Blood Count 3.38 M/mm3 (4.6-6.2)
[2018-10-26 21:59] LABS: Anion Gap 11 (5-15); BUN 68 mg/dL (7-18); BUN/Creat Ratio 5.1 RATIO (10-20); Calcium,Total 8.4 mg/dL (8.5-10.1); Chloride 99 mmol/L (98-107); EST Glomerular Filtration Rate 4 mL/min (>60); Est Glom Filt Rate - Afr Amer 5 mL/min (>60); Estimated Creatinine Clearance 5.98 ml/min; Glucose 70 mg/dL (74-106); Potassium 5.9 mmol/L (3.5-5.1); Sodium Level 138 mmol/L (136-145)
[2018-10-26 22:47] VITALS: PULSE 82; O2SAT 95
--- NOTE | 2018-10-26 23:45 | RAD_ITS ---
STUDY: X-RAY CHEST REASON FOR EXAM: Male, 58 years old. Pneumonia. TECHNIQUE: A single lateral view of the chest was obtained. Current exam was done at 2353 hours. COMPARISON: AP portable view the chest done same day at 2020 hours. Chest x-ray done on 04/14/2018. FINDINGS: Lungs are mildly hyperexpanded. No focal pulmonary infiltrate is demonstrated on the lateral view. There is increased interstitial prominence when compared with the April exam. There is no demonstrated pleural abnormality. The heart is enlarged. Normal mediastinum and anselmo. There is prominence of the pulmonary hilar arteries and peripheral pulmonary arteries, consistent with congestive heart failure (CHF). Normal visualized aortic arch and descending thoracic aorta. There are multilevel degenerative changes of the visualized thoracic spine. There are no visualized acute osseous abnormalities. There is no demonstrated abnormality of the visualized soft tissue structures of the upper abdomen. RAD/Chest 1 View IMPRESSION: Cardiomegaly with CHF. Suggestion of COPD. No visualized focal pulmonary infiltrate. Electronically Signed: Tray Theodore MD at 1:00 EDT , Service support ,
--- NOTE | 2018-10-27 00:09 | ED.DEP ---
ED Disposition - Plan for ED Patient: Disposition: Home or Assisted Living Instructions: PNEUMONIA (Adult) Prescriptions: Azithromycin [Zithromax] 250 mg PO DAILY #4 tab Prescription Printed Referrals: Sesar Quiñones MD [Primary Care Provider] - 3-5 Days if not improving Additional Instructions: Follow-up with your dialysis on Saturday. Your potassium is a little high today at 5.9. You have what appears to be an early right lower lobe pneumonia. We will treat you with antibiotic Zithromax. First dose given in the ER today. Take 1 pill/day for the next 4 days. Follow-up with your doctor. Return to ER feeling worse.
[2018-10-27] MEDS: Azithromycin 250 MG Tablet 500 MG PO (00:15)
[2018-10-27 00:17] VITALS: BP 164/90; PULSE 89; RESP 16; O2SAT 95
--- NOTE | 2018-10-29 15:22 | ED.RN ---
pt called in stating he lost the bottle of atb. Determined he needed last two tabs of rx. Dr Ruth verbalized order for two Zithromax 250mg, 1 per day x2 days. Called to [facility] per pt request and spoke with dianna. [phone]
== END 2018-10-27 00:23 | disposition home or self-care (01) ==
PROVIDERS: Emergency Provider Emergency Medicine; Family Provider Family Medicine; PCP Family Medicine
DX: J18.9 Pneumonia, unspecified organism (principal); I12.0 Hypertensive chronic kidney disease with stage 5 chronic kidney disease or end stage renal disease; N18.6 End stage renal disease; Z99.2 Dependence on renal dialysis; E87.5 Hyperkalemia; Z72.0 Tobacco use
CPT/HCPCS: 36415; 71045; 80048; 84484; 85025; 93005; 94760; 99285; A4216

== ENCOUNTER 2018-11-05 06:37 | Emergency (ER) | payer MEDICARE, SELFPAY ==
[2018-11-05 06:38] VITALS: BP 145/105; PULSE 103; RESP 17; TEMP 37; O2SAT 97; BMI 25.3
[2018-11-05 06:53] VITALS: TEMP 37
--- NOTE | 2018-11-05 07:08 | EKG12_ITS ---
Test Reason : CP Blood Pressure : / mmHG Vent. Rate : 103 BPM Atrial Rate : 103 BPM P-R Int : 172 ms QRS Dur : 158 ms QT Int : 438 ms P-R-T Axes : 044 004 150 degrees QTc Int : 573 ms Sinus tachycardia Possible Left atrial enlargement Left bundle branch block Abnormal ECG Confirmed by ABELARDO OJEDA ([id number]), editorial specialist JERSEY BALDERRAMA ([id number]) on 11/11/2018 9:51:02 AM Referred By: ERIC Confirmed By:ABELARDO OJEDA
--- NOTE | 2018-11-05 07:08 | RAD_ITS ---
STUDY: X-RAY CHEST REASON FOR EXAM: Male, 58 years old. Chest pain and shortness of breath. Cough. TECHNIQUE: PA and lateral views of the chest. COMPARISON: Comparison is made with prior examination dated October 26, 2018. FINDINGS: EKG electrodes are seen. Hyperinflation. I suspect a focal infiltrate in the posterior medial segment of the right lower lobe. Radiographic follow-up is recommended. There is no demonstrated pleural abnormality. Mild cardiomegaly. Normal mediastinum and anselmo. Normal visualized pulmonary arteries. Normal visualized aortic arch and descending thoracic aorta. Normal visualized thoracic spine. Normal visualized ribs, clavicles, and shoulders. Surgical clips are seen in the epigastric region. RAD/Chest PA and Lateral IMPRESSION: Findings suggestive of focal infiltrate in the posterior medial segment of the right lower lobe. Electronically Signed: Russ Elias, at 8:46 EDT , Service support ,
--- NOTE | 2018-11-05 07:10 | ED.DCSUM_ITS ---
- ER Visit Summary Date of Service: 11/05/18 Chief Complaint: Chest pain History of Present Illness: The patient is a 58 M who presents with chest pain that began this morning. Patient describes the pain as a heaviness. Patient states pain is over the left chest. Patient states the pain is worse with exe rtion and movement. Patient states pain is better with rest. Patient admits to a cough with white and brown sputum. Patient was seen here 10 days ago and was diagnosed with pneumonia. Patient was given his first dose of antibiotics here but never filled his prescription for antibiotics. Patient denies any fevers or chills. Patient denies any nausea or vomiting. Patient is due for dialysis t hanna but did not go because of the chest pain. Physical Examination: Vital signs are stable except for slight tachycardia of 103. Patient is afebrile. Patient is in no acute distress. Oral mucosa is pink and moist. Neck is supple. Trachea is midline. There is no JVD noted. Heart was regular rate and rhythm. Lungs are clear and equal bilateral. Abdomen is soft. Bowel sounds are normal. There is mild left upper quadrant tenderness. There is no guarding noted. Skin is warm dry. Cranial nerves II through XII are intact. There are no focal motor or sensory deficits noted. Test Results: EKG showed normal sinus rhythm with a rate of 103. There is a left bundle branch block pattern noted. There are no acute ST or T wave changes. This was unchanged compared to previous EKG dated 10/26/2018. CBC showed a white blood cell count of 4.3. Hemoglobin was 8.9 and hematocrit was 27.7. This was slightly diminished from previous result. BUN was 47 and creatinine was 12.3. Troponin was 0.042. This is consistent with prior results. PA and lateral chest x-ray was obtained. There is a focal infiltrate in the posterior medial segment of the right lower lobe. Emergency Department Course and Treatment: Patient was given aspirin. Patient was given a dose of Levaquin here. Patient had normal vital signs during his emergency department stay. Patient did not require any oxygen. Patient was given a prescription for Levaquin. Patient was instructed to follow-up with his primary care physician in 3 to 5 days. Patient will be discharged to go to dialysis today. Patient was instructed to restart his Levaquin tomorrow. Patient understood and was agreeable with the plan. All questions were answered. Disposition: Discharge home Impression: 1. Community-acquired pneumonia 2. Chronic kidney disease This note was generated with [employer] dictation software. It may contain incorrect words, spelling, and punctuation that were not noted in review of the chart prior to signing ED Disposition - Plan for ED Patient: Disposition: Home or Assisted Living Diagnosis: Community acquired pneumonia, ESRD (end stage renal disease) on dialysis Instructions: PNEUMONIA (Adult) Prescriptions: Levofloxacin [Levaquin] 500 mg PO DAILY #5 tab Prescription Printed Referrals: Sesar Quiñones MD [Primary Care Provider] - 5-7 Days
[2018-11-05] MEDS: Aspirin 81 MG TAB.CHEW 324 MG PO (07:31)
[2018-11-05 08:02] LABS: Absolute Lymphocyte Count 1.55 X10^3/uL (0.83-4.51); Absolute Neutrophil Count 2.2 X10^3/uL (2.0-7.7); Basophil# 0.03 X10^3/uL; Basophil% 0.7 % (0-1); Eosinophil# 0.16 X10^3/uL; Eosinophils% 3.7 % (0-5); Hematocrit 27.7 % (40-54); Hemoglobin 8.9 g/dL (13.0-16.5); Lymphocyte # 1.55 X10^3/ul (4.0); Lymphocyte % 36.2 % (19-41); Mean Corp Hgb Conc 32.1 g/dL (32-36); Mean Corpuscular Hgb 29.8 pg (27.0-32.0); Mean Corpuscular Volume 92.6 fL (80-94); Mean Platelet Vol. 10.5 fl (6.2-12.0); Monocyte# 0.35 X10^3/uL; Monocyte% 8.2 % (0-10); NRBC Flagged by Analyzer 0 % (0-5); Neutrophil # 2.17 X10^3/uL (2.7-7.7); Neutrophil % 50.7 % (47-70); Platelet Count 133 K/mm3 (150-450); RBC Distribution Width CV 14.1 % (11.6-14.6); RBC Distribution Width SD 47.7 fl (35.1-43.9); Red Blood Count 2.99 M/mm3 (4.6-6.2); White Blood Count 4.3 K/mm3 (4.4-11.0)
[2018-11-05 08:22] LABS: Anion Gap 8 (5-15); BUN 47 mg/dL (7-18); BUN/Creat Ratio 3.8 RATIO (10-20); Calcium,Total 7.9 mg/dL (8.5-10.1); Chloride 103 mmol/L (98-107); EST Glomerular Filtration Rate 5 mL/min (>60); Estimated Creatinine Clearance 6.47 ml/min; Glucose 91 mg/dL (74-106); Potassium 4.6 mmol/L (3.5-5.1); Sodium Level 142 mmol/L (136-145)
[2018-11-05 08:23] LABS: Est Glom Filt Rate - Afr Amer 5 mL/min (>60)
[2018-11-05 09:01] VITALS: BP 146/103; PULSE 103; RESP 12; O2SAT 96
[2018-11-05] MEDS: levoFLOXacin IV 750 MG/150 ML BAG 100 MG IV (09:41)
[2018-11-05 10:38] VITALS: RESP 19
[2018-11-05 11:29] VITALS: BP 139/84; PULSE 76; RESP 15; O2SAT 96
== END 2018-11-05 11:30 | disposition home or self-care (01) ==
PROVIDERS: Emergency Provider Emergency Medicine; Family Provider Family Medicine; PCP Family Medicine
DX: J18.9 Pneumonia, unspecified organism (principal); I12.0 Hypertensive chronic kidney disease with stage 5 chronic kidney disease or end stage renal disease; N18.6 End stage renal disease; Z99.2 Dependence on renal dialysis; I44.7 Left bundle-branch block, unspecified; E78.00 Pure hypercholesterolemia, unspecified; Z79.899 Other long term (current) drug therapy; Z72.0 Tobacco use
CPT/HCPCS: 71046; 80048; 84484; 85025; 93005; 96365; 96366; 99285; J7030; A4216

== ENCOUNTER 2018-11-26 03:51 | Observation (INO) | payer MEDICARE, SELFPAY ==
[2018-11-26] VITALS (13 sets, daily range): BP systolic 120–149; BP diastolic 46–103; PULSE 92–120; RESP 18–28; TEMP 36.2–37.2; O2SAT 92–99; BMI 25.2; BMI 24.9
--- NOTE | 2018-11-26 04:07 | RAD_ITS ---
STUDY: X-RAY CHEST REASON FOR EXAM: Male, 58 years old. Shortness of breath. TECHNIQUE: PA and lateral chest. COMPARISON: November 05, 2018. FINDINGS: No focal infiltrates or effusions. No pneumothorax. There is mild cardiac enlargement. Normal mediastinum and anselmo. Normal visualized pulmonary arteries. Normal visualized aortic arch and descending thoracic aorta. Normal visualized thoracic spine. Normal visualized ribs, clavicles, and shoulders. There is no demonstrated abnormality of the visualized soft tissue structures of the upper abdomen. RAD/Chest PA and Lateral IMPRESSION: Stable mild cardiomegaly. Electronically Signed: Jim Martin MD at 4:53 EDT , Service support ,
--- NOTE | 2018-11-26 04:07 | EKG12_ITS ---
Test Reason : SOB Blood Pressure : / mmHG Vent. Rate : 112 BPM Atrial Rate : 112 BPM P-R Int : 120 ms QRS Dur : 160 ms QT Int : 436 ms P-R-T Axes : -13 -07 128 degrees QTc Int : 595 ms Sinus tachycardia Left bundle branch block Abnormal ECG Confirmed by JOSEPH DINH, JENNIFER ([id number]), fan mail editor BHAVANI JEREZ ([id number]) on 11/28/2018 1:48:57 PM Referred By: NIEVES Confirmed By:ANGEL RUIZ MD
--- NOTE | 2018-11-26 04:11 | ED.VIS.GEN ---
History of Present Illness Chief Complaint: Shortness of Breath Narrative: Patient is a 58-year-old male who presents with shortness of breath. He woke up about 2 AM, 2 hours before presentation and was feeling short of breath. He also complains of chills and sweats. He complains of a cough productive of clear sputum. He has recently had a couple of emergency department visits for pneumonia. After the first visit he did not fill his antibiotics. He did however fill his antibiotics and complete them after the second visit. He states that he did feel like he was getting better but feels like his symptoms have returned. His current symptoms are similar to when he presented with pneumonia. He denies any pain. No nausea vomiting or diarrhea. He does have a history of end-stage renal disease on hemodialysis Saturday and Saturday. Past Medical History - Allergies and Home Meds Allergies/Adverse Reactions: Allergies Penicillins Allergy (Verified 11/05/18 06:47) Unknown sulfamethoxazole [From Bactrim] Allergy (Verified 11/05/18 06:47) Swelling trimethoprim [From Bactrim] Allergy (Verified 11/05/18 06:47) Swelling Primary Care Physician: Sesar Quiñones MD [Primary Care Provider] - Prior records reviewed: Yes Past Medical History: - - End-stage renal disease Surgical History: - - prosthetic right eye, Rt upper arm AVF, right adrenal gland removal for unknown reason Smoking Status: Current every day smoker - Family History Maternal Family History: Reports: No pertinent history, - - No kidney disease Paternal Family History: Reports: No pertinent history Review of Systems All systems negative except as indicated General: Reports: Chills, Sweats Cardiovascular: Denies: Chest pain Respiratory: Reports: Dyspnea, Cough, Sputum Gastrointestinal: Denies: Nausea, Vomiting, Diarrhea Physical Exam Vital Signs/Narrative: Vital Signs Temp Pulse Resp BP Pulse Ox 11/26/18 03:57 114 H 19 H 127/98 H 97 11/26/18 03:53 98.3 F 114 H 20 H 95 General: Well nourished, Well developed Head: Normocephalic Eyes: EOMI ENT: Moist mucous membranes Neck: Supple Cardiovascular: - - Heart is regular tachycardia without murmur, gallop, rub Respiratory: No distress, - - Scattered expiratory wheezing Abdomen: Soft, Nontender Skin: Normal color Neurological: Alert Psychological: Normal affect Diagnostic/Tx/Re-eval Impressions Chest X-Ray 11/26/18 04:07 IMPRESSION: Stable mild cardiomegaly. Electronically Signed: Jim Martin MD at 4:53 EDT , Service support , 11/26/18 04:07 Chest PA and Lateral [RAD] Stat Laboratory Results 11/26/18 11/26/18 11/26/18 04:30 04:30 04:30 WBC 5.1 RBC 2.86 L Hgb 8.5 L Hct 26.9 L MCV 94.1 H MCH 29.7 MCHC 31.6 L RDW Std Deviation 48.5 H RDW Coeff of Dharmesh 14.1 Plt Count 127 L MPV 10.7 Immature Gran % (Auto) 0.400 Neut % (Auto) 61.6 Lymph % (Auto) 27.9 Ripley % (Auto) 7.0 Eos % (Auto) 2.5 Baso % (Auto) 0.6 Absolute Neuts (auto) 3.2 Absolute Lymphs (auto) 1.43 Nucleated RBC % 0 Sodium 143 Potassium 4.3 Chloride 98 Carbon Dioxide 32.0 Anion Gap 13 BUN 64 H Creatinine 12.20 H* Estim Creat Clear Calc 6.52 Est GFR (MDRD) Af Amer 6 L Est GFR (MDRD) Non-Af 5 L BUN/Creatinine Ratio 5.2 L Glucose 102 Lactic Acid 1.5 Calcium 7.7 L - Medical Decision Making Patient was treated with gentle IV fluids here as well as albuterol and Atrovent aerosols. Laboratory work-up as above notable for chronic anemia and chronic renal failure. He is due for dialysis today. Chest x-ray shows cardiomegaly but no focal pneumonia. With ambulation patient became more tachycardic to about 120 and desaturated to 85%. He was placed back on oxygen by nasal cannula. We will treat with Solu-Medrol. His symptoms seem most consistent with bronchitis. I will defer on antibiotics at this time. ED Disposition - Plan for ED Patient: Disposition: Acute Care Hospital [facility] [place] Diagnosis: Bronchitis, Hypoxia Referrals: Sesar Quiñones MD [Primary Care Provider] -
[2018-11-26] MEDS: Ipratropium/Albuterol Sulfate 3 ML AMPUL.NEB INHALATION ×3 (04:14→15:23)
[2018-11-26 04:45] LABS: Absolute Lymphocyte Count 1.43 X10^3/uL (0.83-4.51); Absolute Neutrophil Count 3.2 X10^3/uL (2.0-7.7); Basophil# 0.03 X10^3/uL; Basophil% 0.6 % (0-1); Eosinophil# 0.13 X10^3/uL; Eosinophils% 2.5 % (0-5); Hematocrit 26.9 % (40-54); Hemoglobin 8.5 g/dL (13.0-16.5); Lymphocyte # 1.43 X10^3/ul (4.0); Lymphocyte % 27.9 % (19-41); Mean Corp Hgb Conc 31.6 g/dL (32-36); Mean Corpuscular Hgb 29.7 pg (27.0-32.0); Mean Corpuscular Volume 94.1 fL (80-94); Mean Platelet Vol. 10.7 fl (6.2-12.0); Monocyte# 0.36 X10^3/uL; NRBC Flagged by Analyzer 0 % (0-5); Neutrophil # 3.15 X10^3/uL (2.7-7.7); Neutrophil % 61.6 % (47-70); Platelet Count 127 K/mm3 (150-450); RBC Distribution Width CV 14.1 % (11.6-14.6); RBC Distribution Width SD 48.5 fl (35.1-43.9); Red Blood Count 2.86 M/mm3 (4.6-6.2); White Blood Count 5.1 K/mm3 (4.4-11.0)
[2018-11-26 05:03] LABS: Lactic Acid 1.5 mmol/L (0.4-2.0)
--- NOTE | 2018-11-26 05:05 | ED.RN ---
called Lorin to inform that pt in ED and will not need ride this am.
--- NOTE | 2018-11-26 05:06 | ED.RN ---
notified of Cr 12.2
[2018-11-26 05:07] LABS: Anion Gap 13 (5-15); BUN 64 mg/dL (7-18); BUN/Creat Ratio 5.2 RATIO (10-20); Calcium,Total 7.7 mg/dL (8.5-10.1); Chloride 98 mmol/L (98-107); EST Glomerular Filtration Rate 5 mL/min (>60); Est Glom Filt Rate - Afr Amer 6 mL/min (>60); Estimated Creatinine Clearance 6.52 ml/min; Glucose 102 mg/dL (74-106); Potassium 4.3 mmol/L (3.5-5.1); Sodium Level 143 mmol/L (136-145)
[2018-11-26] MEDS: MethylPREDNISolone 125 MG/2 ML Vial IV (06:10)
--- NOTE | 2018-11-26 06:11 | HP.PCM_ITS ---
Problem List (1) Bronchitis Status: Acute (2) Abnormal stress test Status: Inactive (3) Anemia of chronic disease Status: Chronic History of Present Illness Date of Admission: 11/26/18 Chief Complaint: shortness of breath The patient is a 58 year old M with a significant history of hypertension; seizures; tobacco abuse; end-stage renal disease on dialysis (Saturday, Wednesdays and Fridays) who presented to the emergency department with shortness of breath that started after waking up from his sleep. His symptoms started few hours before presentation. Associated with his symptoms is wheezing and productive cough of multiple colors. Emergency department doctor reports physical examination of wheezing at the emergency department. Also patient was noted to having hypoxia with oxygen saturation of 85% requiring patient be placed on nasal cannula. Importantly patient was at the emergency department on 10/27/2018 and was diagnosed with pneumonia and was given a prescription for azithromycin that he did not take. He will return back to emergency department on 11/05/2018 and was given Levaquin for pneumonia which reportedly he completed taking about a week a go. Past Medical History Past Medical History (Chronic Problems): Chronic Problems Hyperlipidemia (Chronic) Seizure disorder (Chronic) HTN (hypertension) (Chronic) Anemia of chronic disease (Chronic) Cardiomyopathy (Chronic) CHF (congestive heart failure) (Chronic) ESRD (end stage renal disease) on dialysis (Chronic) Allergies Penicillins Allergy (Verified 11/05/18 06:47) Unknown sulfamethoxazole [From Bactrim] Allergy (Verified 11/05/18 06:47) Swelling trimethoprim [From Bactrim] Allergy (Verified 11/05/18 06:47) Swelling Home Medications: Ambulatory Orders Medication Instructions Recorded Calcium Acetate [Phoslo Gel Cap] 1,334 mg PO TIDCM 03/08/14 Loperamide [Imodium] 2 - 4 mg PO Q6H PRN PRN 08/21/16 Allopurinol [Zyloprim] 100 mg PO DAILYCM 02/18/18 Tamsulosin HCl [Flomax] 0.4 mg PO DAILY 02/18/18 Carvedilol [Coreg (Beta Bree)] 3.125 mg PO BID 04/14/18 Hydroxyzine HCl 25 mg PO DAILY 04/14/18 Levetiracetam 1 tab PO DAILY 04/14/18 Simvastatin 1 tab PO QHS 04/14/18 traMADol [Ultram] 1 tab PO Q8H PRN PRN 04/14/18 Ondansetron [Zofran] 8 mg PO Q8H PRN PRN #20 tablet 04/15/18 Acetaminophen with Codeine 1 tab PO Q6H PRN PRN 11/05/18 [Acetaminophen-Cod #2 Tablet] Carvedilol 6.25 mg PO BID 11/05/18 Folic Acid/Vitamin B Comp W-C 1 cap PO DAILY 11/05/18 [Nephrocaps, Renaphro] Furosemide 40 mg PO BID 11/05/18 Levofloxacin [Levaquin] 500 mg PO DAILY #5 tab 11/05/18 Melatonin 5 mg PO QHS 11/05/18 Minocycline [Minocin] 100 mg PO BID 11/05/18 Nitroglycerin 0.4 mg SL PRN PRN 11/05/18 Surgical History: - - prosthetic right eye, Rt upper arm AVF, right adrenal gland removal for unknown reason Psychiatric History: No pertinent psych hx Lives: Alone Smoking Status: Current every day smoker Tobacco Use: Cigarettes, Vapor - *Family History Maternal History Items: Diabetes Paternal History Items: Heart Disease Review of Systems Constitutional: Reports: Chills. Denies: Fever, Weight Change HEENT: Denies: Head Aches, Sinus Congestion, Sinus Drainage Cardiovascular: Denies: Chest Pain, Palpitations Respiratory: Reports: Cough, Shortness of breath at rest, Sputum production Gastrointestinal: Denies: Abdominal Pain, Nausea, Vomiting Genitourinary: Denies: Dysuria Musculoskeletal: Denies: Joint Pain, Joint Tenderness Skin: Reports: Pruritis. Denies: Rash, Wounds Neurological: Denies: Numbness, Tingling, Focal weakness Psychiatric: Denies: Anxiety, Depression, Homicidal Ideations, Suicidal Ideations Hematologic/ Lymphatic: Denies: Easy Bruising, Easy Bleeding VTE Information - Inpt Only VTE Present on Admission: No VTE Mechan Device Prophylaxis: None VTE Pharm Prophylaxis ordered?: Yes Patient Problems: Active and Suspected Problems Bronchitis (Acute) Hypoxia (Acute) - Physical Exam General: Alert, Oriented x3, Cooperative HEENT: Atraumatic, PERRLA, EOMI, Normocephalic Neck: Supple, No JVD, Negative Carotid Bruits Lungs: Normal air movement, Wheezes - Mild Cardiovascular: No murmurs, Tachycardic Abdomen: Bowel Sounds Present, Soft, Non Tender Extremities: No edema, Capillary Refill Less than 3 Seconds Skin: No breakdown, - - right arm with dialysis access device; with bruit and thrill. Musculoskeletal: No Tenderness to Palpation of Joints or Extremities Neurological: Cranial nerves II-XII grossly intact Psych/Mental Status: Normal Affect, Appropriate Vital Signs Temp Pulse Resp BP Pulse Ox 98.3 F 111 H 24 H 149/103 H 96 11/26/18 03:53 11/26/18 05:04 11/26/18 05:04 11/26/18 05:04 11/26/18 05:04 Oxygen Delivery Method Room Air Weight: 77.5 kg Body Mass Index (BMI) 25.2 Finger Stick Blood Glucose 95 Laboratory Tests Past 24 Hrs 11/26/18 11/26/18 11/26/18 04:30 04:30 04:30 WBC 5.1 RBC 2.86 L Hgb 8.5 L Hct 26.9 L MCV 94.1 H MCH 29.7 MCHC 31.6 L RDW Std Deviation 48.5 H RDW Coeff of Dharmesh 14.1 Plt Count 127 L MPV 10.7 Immature Gran % (Auto) 0.400 Neut % (Auto) 61.6 Lymph % (Auto) 27.9 [place] % (Auto) 7.0 Eos % (Auto) 2.5 Baso % (Auto) 0.6 Absolute Neuts (auto) 3.2 Absolute Lymphs (auto) 1.43 Nucleated RBC % 0 Sodium 143 Potassium 4.3 Chloride 98 Carbon Dioxide 32.0 Anion Gap 13 BUN 64 H Creatinine 12.20 H* Estim Creat Clear Calc 6.52 Est GFR (MDRD) Af Amer 6 L Est GFR (MDRD) Non-Af 5 L BUN/Creatinine Ratio 5.2 L Glucose 102 Lactic Acid 1.5 Calcium 7.7 L Assessment/Plan All Active Problems Bronchitis (Acute) Hypoxia (Acute) The patient is a 58 year old M with a significant history of hypertension; seizures; tobacco abuse; end-stage renal disease on dialysis (Saturday, Wednesdays and Fridays) who presented to the emergency department with shortness of breath; wheezes and found to be hypoxic consistent with acute bronchitis. Acute Bronchitis CXR independently reviewed confirms stable mild cardiomegaly. EKG independently reviewed confirms left bundle branch block; unchanged from previous Scheduled DuoNeb Albuterol as needed Received Solu-Medrol at the emergency department; continued Will start patient on azithromycin. Oxygen as needed End-stage renal disease on dialysis Renal diet Continue phosphate binders Lasix continued. Patient reports generalized body itching and on home Benadryl; PRN Benadryl ordered Hydroxyzine continued Tramadol continued for left pain; site of dialysis access device Nephrology consult to optimize end-stage renal disease on dialysis. Seizure disorder Keppra continued Gout Allopurinol continued DVT prophylaxis Subcutaneous Lovenox Code Visit OBSV E&M: 99511 Initial observation care L3
--- NOTE | 2018-11-26 06:58 | NURSING ---
MED SURG COPD EXAC DR PEGUERO
[2018-11-26] MEDS: Carvedilol 6.25 MG Tablet PO ×2 (10:45→22:47)
[2018-11-26] MEDS: guaiFENesin 10 ML UDC (200MG/10ML) PO ×2 (10:45→19:44)
[2018-11-26] MEDS: Tamsulosin HCl 0.4 MG Capsule PO (10:46)
[2018-11-26] MEDS: Calcium Acetate 667 MG Capsule 1334 MG PO ×3 (10:46→17:09)
[2018-11-26] MEDS: Allopurinol 100 MG Tablet PO (10:46)
[2018-11-26] MEDS: levETIRAcetam 500 MG Tablet PO (10:46)
[2018-11-26] MEDS: guaiFENesin 1,200 MG Tablet 1200 MG PO ×2 (10:46→22:47)
[2018-11-26] MEDS: Folic Acid/Vitamin B Comp W-C 1 Capsule 1 CAP PO (10:46)
[2018-11-26] MEDS: Furosemide 40 MG Tablet PO ×2 (10:46→17:09)
[2018-11-26] MEDS: hydrOXYzine PAM 25 MG Capsule PO (10:47)
--- NOTE | 2018-11-26 10:56 | CON.PCM_ITS ---
Problem List (1) ESRD (end stage renal disease) on dialysis Status: Chronic Consultation - Renal PCP/ Referring MD: Requesting physician: [] Primary care physician: Sesar Quiñones MD - History of Present Illness History of Present Illness: The patient is a 58 year old M past medical history of end-stage renal disease on Saturday hemodialysis schedule . Patient presented to the hospital with acute onset of shortness of breath which woke him up of his sleep . Patient also has a productive cough . In the ED patient was found to be hypoxic and was placed on nasal cannula. Chest x-ray showed stable cardiomegaly Patient was treated recently for pneumonia with Levaquin . Patient was admitted to the hospital for pneumonia and has been treating with antibiotics Kidney team was consulted for end-stage renal disease care. Last hemodialysis was on Saturday. Review of system: 12 system review is negative except as mentioned HPI [] - Allergies Allergies: Allergies Penicillins Allergy (Verified 11/05/18 06:47) Unknown sulfamethoxazole [From Bactrim] Allergy (Verified 11/05/18 06:47) Swelling trimethoprim [From Bactrim] Allergy (Verified 11/05/18 06:47) Swelling - Current Medications Current Medications: Current Medications Acetaminophen (Tylenol) 650 mg PO Q6H PRN PRN PRN Reason: Mild Pain (1-3)/Temp > 100.7 F Albuterol Sulfate (Ventolin Aerosols) 2.5 mg INHALATION Q2H PRN PRN PRN Reason: SHORTNESS OF BREATH Albuterol/Ipratropium (Duoneb) 3 ml INHALATION Q4H.RT MARY Allopurinol (Zyloprim) 100 mg PO DAILYCM MARY Last Admin: 11/26/18 10:46 Dose: 100 mg Documented by: Atorvastatin Calcium (Lipitor) 10 mg PO QHS MARY Azithromycin (Zithromax) 500 mg PO Q24 MARY Calcium Acetate (Phoslo Gel Cap) 1,334 mg PO TIDCM [facility] Last Admin: 11/26/18 10:46 Dose: 1,334 mg Documented by: Carvedilol (Coreg) 6.25 mg PO BID [facility] [place] Last Admin: 11/26/18 10:45 Dose: 6.25 mg Documented by: Dextrose (D50w Syringe) 0 gm IV X1 PRN; Protocol PRN Reason: Hypoglycemia Diphenhydramine HCl (Benadryl) 25 mg PO Q8 PRN PRN Reason: ITCHING Furosemide (Lasix) 40 mg PO BIDLX [facility] [place] Last Admin: 11/26/18 10:46 Dose: 40 mg Documented by: Glucagon () 1 mg IM .X1 PRN PRN Reason: Hypoglycemia Guaifenesin (Mucinex) 1,200 mg PO BID [facility] [place] Last Admin: 11/26/18 10:46 Dose: 1,200 mg Documented by: Guaifenesin (Robitussin) 10 ml PO Q6H PRN PRN PRN Reason: COUGH Last Admin: 11/26/18 10:45 Dose: 10 ml Documented by: Heparin Sodium (Porcine) (Heparin Na) 5,000 unit SC Q8 [facility] Hydroxyzine Pamoate (Vistaril Pamoate Capsule) 25 mg PO DAILY [facility] [place] Last Admin: 11/26/18 10:47 Dose: 25 mg Documented by: Sodium Chloride () 250 mls @ 15 mls/hr IV .[id number] PRN PRN Reason: SALINE FLUSH Levetiracetam (Keppra Tablet) 500 mg PO DAILY [facility] [place] Last Admin: 11/26/18 10:46 Dose: 500 mg Documented by: Loperamide HCl (Imodium) 2 mg PO Q6H PRN PRN PRN Reason: Diarrhea Melatonin (Melatonin) 6 mg PO QHS [facility] Methylprednisolone (Solu-Medrol) 40 mg IV Q8 [facility] Multivit/Ca Carb/B Cmplx/FA/Prenat (Nephrocaps, Renaphro) 1 capsule PO DAILY [facility] [place] Last Admin: 11/26/18 10:46 Dose: 1 capsule Documented by: Ondansetron HCl (Zofran) 4 mg IV Q8H PRN PRN PRN Reason: NAUSEA/VOMITING Sodium Chloride () 10 - 40 ml IV UD PRN PRN Reason: SALINE FLUSH Tamsulosin HCl (Flomax) 0.4 mg PO DAILY [facility] [place] Last Admin: 11/26/18 10:46 Dose: 0.4 mg Documented by: Tramadol HCl (Ultram) 50 mg PO Q8H PRN PRN PRN Reason: PAIN - Past Medical History Past Medical History (Chronic Problems): Chronic Problems Hyperlipidemia (Chronic) Seizure disorder (Chronic) HTN (hypertension) (Chronic) Anemia of chronic disease (Chronic) Cardiomyopathy (Chronic) CHF (congestive heart failure) (Chronic) ESRD (end stage renal disease) on dialysis (Chronic) - Past Surgical History Surgical History: - - prosthetic right eye, Rt upper arm AVF, right adrenal gland removal for unknown reason - Social History Smoking Status: Current every day smoker - Family History Maternal History Items: Diabetes Paternal History Items: Heart Disease Patient Problems: Active and Suspected Problems Bronchitis (Acute) Hypoxia (Acute) - Physical Exam General: Alert, Oriented x3 HEENT: Atraumatic Oral: Moist Mucosa Neck: Supple, No JVD Lungs: Clear to auscultation, Normal air movement, No rhonchi, No wheeze Cardiovascular: Regular Rhythm, Normal S1, Tachycardic Abdomen: Bowel Sounds Present, Soft, Non Tender Extremities: No clubbing, No cyanosis, No edema Skin: No rashes Musculoskeletal: No Tenderness to Palpation of Joints or Extremities Lymphatic: No Cervical, Supraclavicular, or Inguinal Adenopathy Neurological: Cranial nerves II-XII grossly intact, Neuro grossly intact Psych/Mental Status: Normal Affect Vital Signs Temp Pulse Resp BP Pulse Ox 97.9 F 110 H 20 H 139/46 H 96 11/26/18 08:11 11/26/18 08:11 11/26/18 08:11 11/26/18 08:11 11/26/18 08:11 Oxygen Flow Rate (L/min) 3 Oxygen Delivery Method Nasal Cannula Weight: 76.566 kg Body Mass Index (BMI) 24.9 Finger Stick Blood Glucose 95 Intake and Output for Last 24 Hours 11/24/18 11/25/18 11/26/18 23:59 23:59 23:59 Intake Total 500 / 500 Balance 500 / 500 Laboratory Tests Past 24 Hrs 11/26/18 11/26/18 11/26/18 04:30 04:30 04:30 WBC 5.1 RBC 2.86 L Hgb 8.5 L Hct 26.9 L MCV 94.1 H MCH 29.7 MCHC 31.6 L RDW Std Deviation 48.5 H RDW Coeff of Dharmesh 14.1 Plt Count 127 L MPV 10.7 Immature Gran % (Auto) 0.400 Neut % (Auto) 61.6 Lymph % (Auto) 27.9 [facility] % (Auto) 7.0 Eos % (Auto) 2.5 Baso % (Auto) 0.6 Absolute Neuts (auto) 3.2 Absolute Lymphs (auto) 1.43 Nucleated RBC % 0 Sodium 143 Potassium 4.3 Chloride 98 Carbon Dioxide 32.0 Anion Gap 13 BUN 64 H Creatinine 12.20 H* Estim Creat Clear Calc 6.52 Est GFR (MDRD) Af Amer 6 L Est GFR (MDRD) Non-Af 5 L BUN/Creatinine Ratio 5.2 L Glucose 102 Lactic Acid 1.5 Calcium 7.7 L Assessment/Plan All Active Problems Bronchitis (Acute) Hypoxia (Acute) 1-end-stage renal disease patient on Saturday hemodialysis schedule. Patient goes to [facility] unit at [place]. Will arrange for hemodialysis today as per the chronic order with ultrafiltration to his estimated dry weight. 2-anemia: Continue KITTY as per the chronic order. 3-bone mineral disease. Continue calcium acetate 3 times daily with meals. Continue active vitamin D as per electronic order. 4-bronchitis/pneumonia. Patient has been treated with antibiotics for pneumonia. Patient presented with hypoxemia with tachycardia and sudden onset of shortness of breath. PE needs to be ruled out. I discussed with the primary service. Thank you for the consult. Renal team will continue to follow. Please call if any question at [phone] Lenard Tavarez MD
[2018-11-26 11:40] LABS: D-Dimer Quantitative (DVT/PE) 1.75 FEU/ug/m (0.27-0.49)
--- NOTE | 2018-11-26 12:01 | NM_ITS ---
CLINICAL: 58-year-old male with reported history of shortness of breath. VENTILATION-PERFUSION LUNG SCINTIGRAPHY COMPARISON: Plain film chest radiograph 11/26/2018 FINDINGS: The patient was administered 50.0 mCi 99m Tc DTPA aerosol. The aerosol ventilation study demonstrates heterogeneous ventilation in the bilateral lung donaldson without corresponding radiographic changes visualized on review of plain film chest x-ray dated 11/26/2018. Central clumping of the aerosol is identified in the bilateral hemithorax. Following the intravenous administration of 5.6 mCi of 99m Tc MAA, the pulmonary perfusion study reveals mild non-uniform perfusion in the right and left lungs are less significant severity than the previously defined ventilation pattern. No moderate subsegmental or large segmental ventilation-perfusion mismatches are noted. NM/Lung Scan Vent/Perf IMPRESSION: 1. VERY LOW PROBABILITY FOR PULMONARY EMBOLUS (<10%) 99m Tc DTPA aerosol ventilation / 99m Tc MAA pulmonary perfusion imaging examination, according to PIOPED II interpretive criteria with regard given to the presence of > 2 ventilation-perfusion matches without corresponding radiographic changes. (Sotsman et al, Radiology 246: 941, 2008 Sospeedy et al, J Nucl Med 49: 1741, 2008). 2. Central clumping of the aerosol may be secondary to obstructive airway mechanics and or clinical tachypnea. Electronically Signed: Casa Smith DO at 16:04 EDT Tel , Service support ,
--- NOTE | 2018-11-26 12:02 | VDLE_ITS ---
Reason For Study: Elevated D-dimer RIGHT LEFT GSV is normal. GSV is normal. CFV is compressible, spontaneous, phasic, CFV is compressible, spontaneous, phasic, competent and demonstrates normal competent, and demonstrates normal augmentation. augmentation. FV is compressible, spontaneous, phasic, FV is compressible, spontaneous, phasic, competent and demonstrates normal competent and demonstrates normal augmentation. augmentation. POP V is compressible, spontaneous, phasic, POP V is compressible, spontaneous, phasic, competent and demonstrates normal competent and demonstrates normal augmentation. augmentation. T/P Trunk is compressible. T/P Trunk is compressible. PTV is compressible. PTV is compressible. RT PerV is compressible. LT PerV is compressible. Procedure Exam performed portable in patient room. A preliminary report was called and/or faxed to [facility]. Interpretation Summary No evidence for acute deep venous thrombosis bilateral lower extremities with patent and compressible bilateral great saphenous veins. Ordering Physician: Rusty Rod Referring Physician: Sesar Quiñones Performed By: Gracia Sanchez RVT
[2018-11-26] MEDS: Heparin Injection (Vial) 5,000 UNIT/ML VIAL 5000 UNIT SC ×2 (13:26→22:46)
[2018-11-26] MEDS: 0.9% NaCl Peripheral Flush Adult/Peds IV ×2 (13:26→22:53)
--- NOTE | 2018-11-26 15:49 | CHAPLAIN ---
Type of Pastoral Visit _x__ Initial Visit ___ Follow-up Visit ___ On-call Visit ___ General Patient Visit ___ Spiritual Assessment ___ Family Conference ___ Bereavement ___ Rapid Response ___ Code Blue ___ Other (describe below) Pastoral Care Referral From _x__ Patient ___ Family ___ Nurse ___ Physician ___ [employer] ___ Failure Analysis Engineer ___ Other (describe below) Sacrament/Intervention _x__ Active listening ___ Anointing ___ Hoahaoism ___ Bereavement ___ Communion ___ [place] exploration ___ ___ Life review _x__ Prayer ___ Reconciliation ___ Sacrament of Sick _x__ Supportive presence ___ Wedding ___ Other (describe below) Pastoral Comments patient requests L[employer] Day reading material; this photographic restorer will supply the reading material requested
[2018-11-26] MEDS: DiphenhydrAMINE 25 MG Capsule PO (19:44)
--- NOTE | 2018-11-26 22:06 | DIALYSIS ---
Pt tolerated 3.5hr HD tx well. Net UF -2800ml. See flow record for tx data.
[2018-11-26] MEDS: Atorvastatin Calcium 10 MG Tablet PO (22:46)
[2018-11-26] MEDS: MELATONIN 3 MG TABLET 6 MG PO (22:46)
[2018-11-26] MEDS: Heparin 10,000 UNITS/10 ML Vial 3200 UNITS IV (22:47)
[2018-11-26] MEDS: Epoetin Alfa epbx 10,000 UNITS/ML 3200 UNIT IV (22:48)
[2018-11-27] MEDS: Ipratropium/Albuterol Sulfate 3 ML AMPUL.NEB INHALATION ×3 (02:02→11:14)
[2018-11-27 02:03] VITALS: PULSE 110; RESP 18
[2018-11-27 04:45] VITALS: BP 102/71; PULSE 106; RESP 18; TEMP 36.8; O2SAT 93
[2018-11-27] MEDS: Heparin Injection (Vial) 5,000 UNIT/ML VIAL 5000 UNIT SC (05:05)
[2018-11-27] MEDS: traMADol 50 MG Tablet PO (05:11)
[2018-11-27 07:40] VITALS: PULSE 108; RESP 20; O2SAT 93
[2018-11-27 09:50] VITALS: BP 120/76; PULSE 112; RESP 16; TEMP 36.7; O2SAT 96
[2018-11-27] MEDS: Folic Acid/Vitamin B Comp W-C 1 Capsule 1 CAP PO (09:56)
[2018-11-27] MEDS: Allopurinol 100 MG Tablet PO (09:56)
[2018-11-27] MEDS: Furosemide 40 MG Tablet PO (09:56)
[2018-11-27] MEDS: Tamsulosin HCl 0.4 MG Capsule PO (09:56)
[2018-11-27] MEDS: hydrOXYzine PAM 25 MG Capsule PO (09:56)
[2018-11-27] MEDS: levETIRAcetam 500 MG Tablet PO (09:56)
[2018-11-27] MEDS: Carvedilol 6.25 MG Tablet PO (09:56)
[2018-11-27] MEDS: guaiFENesin 1,200 MG Tablet 1200 MG PO (09:56)
[2018-11-27] MEDS: Calcium Acetate 667 MG Capsule 1334 MG PO (09:56)
[2018-11-27] MEDS: Nepro with Carbsteady 237 ML Liquid 120 ML PO (10:01)
[2018-11-27 10:06] VITALS: O2SAT 94
--- NOTE | 2018-11-27 10:10 | CASEMGMT ---
RN CHATO NOTE: To room to talk with pt/review ALLEN form. Introduced self and role of ENRIQUE REIS. Pt alert/oriented. Reviewed ALLEN form and pt denies having any questions. Form signed by pt, copy made and placed on chart and original given to pt. Pt instructed to ask for CM if he has any questions/concerns. Pt voices understanding. Pt states he needs a ride home once he is discharged. Pt informed that RN CHATO would check on [facility] Van transportation availability. Pt then asked for [facility]'s phone number, stating they provide free transportation. Phone number provided for pt and he stated he would call and make arrangements for transportation home once he talks with is nurse re: anticipated discharge time. Leonor NUNEZ, made aware. Jagdeep AZEVEDO RN, CM
--- NOTE | 2018-11-27 10:13 | PN.RENAL_ITS ---
Patient Problems: Active and Suspected Problems Bronchitis (Acute) Hypoxia (Acute) Subjective: Patient is feeling better today. Breathing is better. No chest pain. No nausea no vomiting. Tolerated hemodialysis session well yesterday - Physical Exam General: Alert, Oriented x3 HEENT: Atraumatic Oral: Moist Mucosa Neck: Supple, No JVD, Negative Carotid Bruits Lungs: Clear to auscultation, Normal air movement, No rhonchi, No wheeze Cardiovascular: Regular rate, Regular Rhythm, Normal S1, Normal S2 Abdomen: Bowel Sounds Present, Soft, Non Tender, Non-Distended Extremities: No clubbing, No cyanosis, No edema Skin: No rashes Musculoskeletal: No Tenderness to Palpation of Joints or Extremities Lymphatic: No Cervical, Supraclavicular, or Inguinal Adenopathy Neurological: Cranial nerves II-XII grossly intact, Neuro grossly intact Psych/Mental Status: Appropriate Vital Signs Temp Pulse Resp BP Pulse Ox 98.1 F 112 H 16 120/76 94 11/27/18 09:50 11/27/18 09:50 11/27/18 09:50 11/27/18 09:50 11/27/18 10:06 Oxygen Flow Rate (L/min) 2 Oxygen Delivery Method Room Air Weight: 76.566 kg Body Mass Index (BMI) 24.9 Finger Stick Blood Glucose 95 Intake and Output for Last 24 Hours 11/25/18 11/26/18 11/27/18 23:59 23:59 23:59 Intake Total 1380 / 1380 720 / 720 Output Total 2800 / 2800 2800 / 2800 Balance -1420 / -1420 -2080 / -2080 Microbiology Past 72 Hours 11/26/18 10:10 Respiratory Panel (PCR) - Final Mucosa - Nasopharyngeal Laboratory Tests Past 24 Hrs 11/26/18 04:30 D-Dimer Quant (PE/DVT) 1.75 H* Medical Necessity - Tobacco Use Smoking Status: Current every day smoker Tobacco Use: Cigarettes, Vapor Assessment/Plan All Active Problems Bronchitis (Acute) Hypoxia (Acute) 1-end-stage renal disease patient on Saturday hemodialysis schedule. Patient goes to [facility] unit at [place]. Last hemodialysis session was yesterday. No need for hemodialysis today. Next hemodialysis session tomorrow November 28 2-anemia: Continue KITTY as per the chronic order. 3-bone mineral disease. Continue calcium acetate 3 times daily with meals. Continue active vitamin D as per electronic order. 4-bronchitis. Better. VQ scan is negative for PE. Defer management to the primary service Thank you for the consult. Renal team will continue to follow. Please call if any question at [phone] Lenard Tavarez MD
--- NOTE | 2018-11-27 10:38 | PCM.DC ---
- Discharge Diagnoses Current Active Problems: Current Active and Chronic Problems Bronchitis (Acute) Hypoxia (Acute) You will use the following diet at home:: Cardiac, Renal (restricted protein/sodium) Your food should be the consistency of: Regular Discharge Activity: Return to Normal Activity Weight Bearing Status: Weight bearing as tolerated Call your doctor if you observe: Fever of 101 or Higher, Shortness of breath, Dizziness, Fainting spells, Chest pain, Increased palpitations (irregular heartbeat), Uncontrolled pain Allergies/Adverse Reactions: Allergies Penicillins Allergy (Verified 11/05/18 06:47) Unknown sulfamethoxazole [From Bactrim] Allergy (Verified 11/05/18 06:47) Swelling trimethoprim [From Bactrim] Allergy (Verified 11/05/18 06:47) Swelling Medications to take at Discharge Calcium Acetate [Phoslo Gel Cap] 1,334 mg PO TIDCM 03/08/14 Loperamide [Imodium] 2 - 4 mg PO Q6H PRN PRN 08/21/16 Allopurinol [Zyloprim] 100 mg PO DAILYCM 02/18/18 Tamsulosin HCl [Flomax] 0.4 mg PO DAILY 02/18/18 Hydroxyzine HCl 25 mg PO DAILY 04/14/18 Levetiracetam 1 tab PO DAILY 04/14/18 Simvastatin 20 mg PO QHS 04/14/18 Acetaminophen with Codeine [Acetaminophen-Cod #2 Tablet] 1 tab PO Q6H PRN PRN 11/05/18 Carvedilol 6.25 mg PO BID 11/05/18 Folic Acid/Vitamin B Comp W-C [Nephrocaps, Renaphro] 1 cap PO DAILY 11/05/18 Furosemide 40 mg PO BID 11/05/18 Melatonin 5 mg PO QHS 11/05/18 Nitroglycerin 0.4 mg SL PRN PRN 11/05/18 DiphenhydrAMINE [Benadryl] 75 mg PO TID PRN PRN 11/26/18 Prednisone [Deltasone] 40 mg PO DAILY #10 tab 11/27/18 The following prescriptions were given: Prednisone [Deltasone] 40 mg PO DAILY #10 tab Transmission Status: Pending to [facility] Primary Care Physician: Sesar Quiñones MD [Primary Care Provider] - Please follow up with your Primary Care Physician in: 1-2 week. Test Results: Test results from this visit will be discussed in further detail at your follow-up appointment, if applicable.
[2018-11-27 11:19] VITALS: PULSE 91; RESP 18
--- NOTE | 2018-11-27 11:42 | PHA.DC.MC ---
Pharmacy Service has performed discharge medication reconciliation and counseling for this patient. The patient's discharge medication list was reviewed for discrepancies and discrepancies were resolved. 1. PREDNISONE 20MG 2 TABLETS BY MOUTH FOR FIVE DAYS Home Medications Calcium Acetate [Phoslo Gel Cap] 1,334 mg PO TIDCM 03/08/14 Loperamide [Imodium] 2 - 4 mg PO Q6H PRN PRN 08/21/16 Allopurinol [Zyloprim] 100 mg PO DAILYCM 02/18/18 Tamsulosin HCl [Flomax] 0.4 mg PO DAILY 02/18/18 Hydroxyzine HCl 25 mg PO DAILY 04/14/18 Levetiracetam 1 tab PO DAILY 04/14/18 Simvastatin 20 mg PO QHS 04/14/18 Acetaminophen with Codeine [Acetaminophen-Cod #2 Tablet] 1 tab PO Q6H PRN PRN 11/05/18 Carvedilol 6.25 mg PO BID 11/05/18 Folic Acid/Vitamin B Comp W-C [Nephrocaps, Renaphro] 1 cap PO DAILY 11/05/18 Furosemide 40 mg PO BID 11/05/18 Melatonin 5 mg PO QHS 11/05/18 Nitroglycerin 0.4 mg SL PRN PRN 11/05/18 DiphenhydrAMINE [Benadryl] 75 mg PO TID PRN PRN 11/26/18 Prednisone [Deltasone] 40 mg PO DAILY #10 tab 11/27/18 The patient was counseled on the following discharge medications and changes in medications for homegoing were reviewed. The Reason for Use, instructions for use, and potential side effects were reviewed for all new medications. The patient's questions regarding all of their medications were answered. The patient was able to verbally demonstrate an understanding of their discharge medications.
--- NOTE | 2018-11-27 13:17 | PCM.DC.SUM ---
Discharge Date and Diagnosis Date of Admission: 11/26/18 Date of Discharge: 11/27/18 - Primary Discharge Diagnosis #1 acute bronchitis. #2 hypoxia, resolved. #3 elevated d-dimer, PE and DVT ruled out. - Secondary Discharge Diagnosis Chronic Problems Hyperlipidemia (Chronic) Seizure disorder (Chronic) HTN (hypertension) (Chronic) Anemia of chronic disease (Chronic) Cardiomyopathy (Chronic) CHF (congestive heart failure) (Chronic) ESRD (end stage renal disease) on dialysis (Chronic) Hospital Course and Treatment Imaging Results: Clinical Impression(s) from Imaging Studies Chest X-Ray 11/26/18 04:07 IMPRESSION: Stable mild cardiomegaly. Electronically Signed: Jim Martin MD at 4:53 EDT , Service support , Lung Scan-VQ NM 11/26/18 12:01 IMPRESSION: 1. VERY LOW PROBABILITY FOR PULMONARY EMBOLUS (<10%) 99m Tc DTPA aerosol ventilation / 99m Tc MAA pulmonary perfusion imaging examination, according to PIOPED II interpretive criteria with regard given to the presence of > 2 ventilation-perfusion matches without corresponding radiographic changes. (Sotsman et al, Radiology 246: 941, 2008 Sotsman et al, J Nucl Med 49: 1741, 2008). 2. Central clumping of the aerosol may be secondary to obstructive airway mechanics and or clinical tachypnea. Electronically Signed: Casa Smith DO at 16:04 EDT Tel , Service support , Operations: None Procedures: None Summary of Care Provided: Patient seen and examined on the day of discharge and appeared to be stable to be discharged home. Shortness of breath significantly improved and he has been ambulating without any restrictions. Walking pulse oximeter was 94% on room air with ambulation. His other vital signs are stable. The patient is a 58 year old M presented to the emergency room because of shortness of breath with productive cough and wheezing and his symptoms started few hours before he came to the emergency department. His chest x-ray showed no acute infiltrate or consolidation. His routine blood work was remarkable for chronic anemia, chronically elevated BUN and creatinine because of history of ESRD on hemodialysis. Patient had no leukocytosis and his lactic acid was normal. Respiratory panel for viruses were negative. Blood culture showed no growth up to the time of discharge. Patient was treated with bronchodilators and IV steroids. Patient admits that he has been on a couple of courses of antibiotics for the last several weeks for pneumonia as outpatient. No antibiotic given during this hospital stay. With IV steroids and bronchodilators, patient symptoms improved and he was able to come off oxygen. His pulse ox with ambulation on room air was 94% today. He was found to have elevated d-dimer for which ventilation/perfusion lung scan done and showed very low probability of PE. Bilateral venous Doppler of both legs showed no evidence of acute DVT. Patient was improved and he did well. Patient discharged home in a stable medical condition, discharged on prednisone 40 mg p.o. daily for 5 days, started back on his previous medications without any changes, recommended follow-up with PCP in 1 week. - Physical Exam General: Alert, Oriented x3, No apparent distress HEENT: Atraumatic, PERRLA, EOMI, Normocephalic Oral: Moist Mucosa, No Gingival or Mucosal Lesions/ Ulcerations Neck: Supple, No JVD, Negative Carotid Bruits, Trachea Midline, Thyroid Normal Size and Texture Lungs: Clear to auscultation, Normal air movement, No rhonchi, No wheeze, No rales, Diminished Cardiovascular: Regular rate, Regular Rhythm, Normal S1, Normal S2, PMI Normal Abdomen: Bowel Sounds Present, Soft, Non Tender, Non-Distended, No Hepato-splenomegaly Extremities: No clubbing, No cyanosis, No edema Skin: No rashes, No breakdown Lymphatic: No Cervical, Supraclavicular, or Inguinal Adenopathy Neurological: Cranial nerves II-XII grossly intact, Neuro grossly intact Psych/Mental Status: Normal Affect, Appropriate Vital Signs Temp Pulse Resp BP Pulse Ox 98.1 F 91 18 120/76 94 11/27/18 09:50 11/27/18 11:19 11/27/18 11:19 11/27/18 09:50 11/27/18 10:06 Oxygen Flow Rate (L/min) 2 Oxygen Delivery Method Room Air Weight: 168 lb 12.786 oz Body Mass Index (BMI) 24.9 Finger Stick Blood Glucose 95 Intake and Output for Last 24 Hours 09/11/26/18 11/27/18 23:59 23:59 23:59 Intake Total 1380 / 1380 720 / 720 Output Total 2800 / 2800 2800 / 2800 Balance -1420 / -1420 -2080 / -2080 Microbiology Past 72 Hours 11/26/18 10:10 Respiratory Panel (PCR) - Final Mucosa - Nasopharyngeal Discharge Activity: Return to Normal Activity Weight Bearing Status: Weight bearing as tolerated Call your doctor if you observe: Fever of 101 or Higher, Shortness of breath, Dizziness, Fainting spells, Chest pain, Increased palpitations (irregular heartbeat), Uncontrolled pain Home Medications: Medications to take at Discharge Calcium Acetate [Phoslo Gel Cap] 1,334 mg PO TIDCM 03/08/14 Loperamide [Imodium] 2 - 4 mg PO Q6H PRN PRN 08/21/16 Allopurinol [Zyloprim] 100 mg PO DAILYCM 02/18/18 Tamsulosin HCl [Flomax] 0.4 mg PO DAILY 02/18/18 Hydroxyzine HCl 25 mg PO DAILY 04/14/18 Levetiracetam 1 tab PO DAILY 04/14/18 Simvastatin 20 mg PO QHS 04/14/18 Acetaminophen with Codeine [Acetaminophen-Cod #2 Tablet] 1 tab PO Q6H PRN PRN 11/05/18 Carvedilol 6.25 mg PO BID 11/05/18 Folic Acid/Vitamin B Comp W-C [Nephrocaps, Renaphro] 1 cap PO DAILY 11/05/18 Furosemide 40 mg PO BID 11/05/18 Melatonin 5 mg PO QHS 11/05/18 Nitroglycerin 0.4 mg SL PRN PRN 11/05/18 DiphenhydrAMINE [Benadryl] 75 mg PO TID PRN PRN 11/26/18 Prednisone [Deltasone] 40 mg PO DAILY #10 tab 11/27/18 Following Prescrptions Were Given to Patient: Prednisone [Deltasone] 40 mg PO DAILY #10 tab Transmission Status: Received by [facility] Primary Care Physician: Sesar Quiñones MD [Primary Care Provider] - Please follow up with your Primary Care Physician in: 1-2 week. Please Follow Up With: Sesar Quiñones MD Disposition: Home Minutes spent on discharge:: 25 Patient Condition:: Stable Medical Necessity - Tobacco Use Smoking Status: Current every day smoker Tobacco Use: Cigarettes, Vapor Meaningful Use Info Meaningful Use Diagnoses (Choose all that apply): None applicable Code Visit OBSV E&M: 96381 Observation care discharge
== END 2018-11-27 10:38 | disposition home or self-care (01) ==
LOC: ED 07:31 → PCU 08:44
PROVIDERS: Admitting Provider Hospitalist; Emergency Provider Emergency Medicine; Family Provider Family Medicine; PCP Family Medicine; Visit Provider Hospitalist
DX: J20.9 Acute bronchitis, unspecified (principal); E78.5 Hyperlipidemia, unspecified; I13.2 Hypertensive heart and chronic kidney disease with heart failure and with stage 5 chronic kidney disease, or end stage renal disease; I50.9 Heart failure, unspecified; N18.6 End stage renal disease; D63.1 Anemia in chronic kidney disease; G40.909 Epilepsy, unspecified, not intractable, without status epilepticus; R94.39 Abnormal result of other cardiovascular function study; Z99.2 Dependence on renal dialysis; Z79.899 Other long term (current) drug therapy; R09.02 Hypoxemia; F17.210 Nicotine dependence, cigarettes, uncomplicated; F17.290 Nicotine dependence, other tobacco product, uncomplicated; M10.9 Gout, unspecified
CPT/HCPCS: 71046; 78582; 80048; 83605; 85025; 85379; 87040; 87633; 90937; 93005; 93970; 94640; 96361; 96372; 96374; 96375; 96376; 97802; 99218; 99285; 99406; A9540; A9567; J7030; A4216; G0257; G0378; Q5106

== ENCOUNTER 2018-12-03 13:25 | Emergency (ER) | payer MEDICARE, SELFPAY ==
[2018-11-26 07:53] VITALS: BMI 24.9
[2018-12-03 13:26] VITALS: BP 123/93; PULSE 95; RESP 20; TEMP 36.6; O2SAT 97; BMI 24.0
[2018-12-03 13:47] VITALS: O2SAT 97
--- NOTE | 2018-12-03 13:47 | EKG12_ITS ---
Test Reason : SOB Blood Pressure : / mmHG Vent. Rate : 098 BPM Atrial Rate : 098 BPM P-R Int : 156 ms QRS Dur : 160 ms QT Int : 442 ms P-R-T Axes : 061 076 269 degrees QTc Int : 564 ms Sinus rhythm with occasional Premature ventricular complexes Possible Left atrial enlargement Left bundle branch block Abnormal ECG Confirmed by JOSEPH DINH, JENNIFER ([id number]), desk editor BHAVANI JEREZ ([id number]) on 12/05/2018 10:23:32 A M Referred By: BERNARDO/[place] Confirmed By:ANGEL RUIZ MD
--- NOTE | 2018-12-03 13:48 | ED.DCSUM_ITS ---
- ER Visit Summary Date of Service: 12/03/18 Chief Complaint: Transient shortness of breath resolved History of Present Illness: The patient is a 58 M history of dilated cardiomyopathy with an EF 25%, anemia, COPD, end-stage renal disease dialysis. Patient states he had a full run of dialysis this morning and he is dialyzed Saturday. States that her get hemodialysis he does not feel well and felt shortness of breath. No chest pain. No fever. No hemoptysis. No cough. Says he feels better now. 7 squad arrived to put him on oxygen he felt better. Physical Examination: Middle-aged male. Currently no acute distress. He is off oxygen and has been the entire time I am in the room and is O2 pulse ox sat is 99 to 100%. He is laying flat in bed he is in no distress. His current vital signs are stable and afebrile. HEENT exam unremarkable. Neck nontender no JVD. No lymphadenopathy. Lungs to auscultation bilaterally. Heart regular rhythm rate about 90. Abdomen soft nontender normal bowel sounds no peritoneal signs. Patient is moving all 4 extremities. Neurovascular intact. Calves are nontender without edema or cords. He has a right dialysis catheter in his upper arm and he has a good thrill. Neurologically is awake and alert with no focal m otor deficits. Test Results: EKG sinus rhythm rate of 98 with old left bundle branch block unchanged from prior EKG earlier this month. CBC shows a white count 8. Hemoglobin 9.9 which is his baseline chronic anemia. Electrolytes BUN is 30 creatinine 5.8 again his baseline with renal failure. Normal gap. Potassium unremarkable. Troponin is elevated 0.101 he has had multiple elevated troponins in the past. I do not think this is an acute cardiac event. Plus he has a history of a dilated cardiomyopathy. Emergency Department Course and Treatment: Middle-aged male with transient shortness of breath. Complex past medical history but clinically is doing well now and has a pulse ox of 99 to 100% laying supine. Screening labs and chest x- ray and EKG will be obtained. Repeat exam patient is resting comfortably in bed. He has had up at about 30 degrees and his sat is 99% without any complaints. He and I went over all his test results he is comfortable being discharged home. He asked me to write him for something for chronic hip pain. I explained to him I could not write him a narcotic he requested that I write him for some Tylenol. Treatment Plan: Follow-up with your primary care physician. Return if worse. Disposition: Discharge Impression: Transient dyspnea History of COPD History of dilated cardiomyopathy Hx of end-stage renal disease with dialysis earlier today This note was generated with [employer] dictation software. It may contain incorrect words, spelling, and punctuation that were not noted in review of the chart prior to signing ED Disposition - Plan for ED Patient: Referrals: Sesar Quiñones MD [NON-STAFF] -
[2018-12-03 14:01] VITALS: BP 114/88; PULSE 100; RESP 20; O2SAT 100
[2018-12-03] MEDS: HYDROcodone Bitartrate/Apap 5/325 Tablet PO (14:04)
[2018-12-03 14:12] LABS: Absolute Lymphocyte Count 0.93 X10^3/uL (0.83-4.51); Absolute Neutrophil Count 6.3 X10^3/uL (2.0-7.7); Basophil# 0.02 X10^3/uL; Basophil% 0.2 % (0-1); Eosinophil# 0.32 X10^3/uL; Eosinophils% 3.9 % (0-5); Hematocrit 30.5 % (40-54); Hemoglobin 9.9 g/dL (13.0-16.5); Lymphocyte # 0.93 X10^3/ul (4.0); Lymphocyte % 11.3 % (19-41); Mean Corp Hgb Conc 32.5 g/dL (32-36); Mean Corpuscular Hgb 30.9 pg (27.0-32.0); Mean Corpuscular Volume 95.3 fL (80-94); Mean Platelet Vol. 10.8 fl (6.2-12.0); Monocyte# 0.52 X10^3/uL; Monocyte% 6.3 % (0-10); NRBC Flagged by Analyzer 0.2 % (0-5); Platelet Count 160 K/mm3 (150-450); RBC Distribution Width CV 16.2 % (11.6-14.6); RBC Distribution Width SD 50.3 fl (35.1-43.9); White Blood Count 8.2 K/mm3 (4.4-11.0)
--- NOTE | 2018-12-03 14:12 | RAD_ITS ---
STUDY: X-RAY CHEST REASON FOR EXAM: Male, 58 years old. Chest pain and dyspnea. Endstage renal disease. TECHNIQUE: PA and lateral views of the chest. COMPARISON: Comparison is made with prior study dated November 26, 2018. FINDINGS: EKG electrodes are seen. Hyperinflation. Patchy infiltrate in the left lower lobe as well as in the right middle lobe adjacent to the minor fissure. There is no demonstrated pleural abnormality. There is moderate cardiac enlargement. Normal mediastinum and anselmo. Normal visualized pulmonary arteries. Normal visualized aortic arch and descending thoracic aorta. Normal visualized thoracic spine. Normal visualized ribs, clavicles, and shoulders. Surgical clips are seen in the epigastric region. RAD/Chest PA and Lateral IMPRESSION: Left lower lobe and right middle lobe infiltrates. Follow-up is recommended. Electronically Signed: Russ Elias, at 15:03 EDT , Service support ,
[2018-12-03 14:14] VITALS: O2SAT 100
[2018-12-03 14:33] LABS: Anion Gap 7 (5-15); BUN 30 mg/dL (7-18); BUN/Creat Ratio 5.2 RATIO (10-20); Calcium,Total 8.5 mg/dL (8.5-10.1); Chloride 96 mmol/L (98-107); Creatinine, Serum 5.81 mg/dL (0.70-1.30); EST Glomerular Filtration Rate 11 mL/min (>60); Est Glom Filt Rate - Afr Amer 13 mL/min (>60); Estimated Creatinine Clearance 13.69 ml/min; Glucose 112 mg/dL (74-106); Potassium 4.2 mmol/L (3.5-5.1); Sodium Level 139 mmol/L (136-145)
--- NOTE | 2018-12-03 16:06 | ED.DEP ---
ED Disposition - Plan for ED Patient: Disposition: Home or Assisted Living Instructions: ED Dyspnea Prescriptions: Acetaminophen [Tylenol] 650 mg PO Q8H PRN PRN #30 cap PRN Reason: Pain Score 1-12/18 Prescription Printed Referrals: Sesar Quiñones MD [NON-STAFF] - 3-5 Days Additional Instructions: Return to ER if feeling worse. Otherwise follow-up with your doctor. Tylenol for chronic hip pain.
== END 2018-12-03 16:39 | disposition home or self-care (01) ==
PROVIDERS: Emergency Provider Emergency Medicine
DX: J44.9 Chronic obstructive pulmonary disease, unspecified (principal); I42.0 Dilated cardiomyopathy; N18.6 End stage renal disease; D63.1 Anemia in chronic kidney disease; Z99.2 Dependence on renal dialysis; Z79.899 Other long term (current) drug therapy; Z72.0 Tobacco use
CPT/HCPCS: 71046; 80048; 84484; 85025; 93005; 99285; A4216

== ENCOUNTER 2018-12-16 06:37 | Emergency (ER) | payer MEDICARE, SELFPAY ==
[2018-12-16 06:38] VITALS: BP 130/96; PULSE 114; RESP 18; TEMP 36.6; O2SAT 96; BMI 25.6
--- NOTE | 2018-12-16 07:09 | ED.VIS.GEN ---
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 He states 1 minute he feels hot in the next he feels cold. He has not measured a fever. Symptoms of been ongoing for several weeks but states he does want to get checked out today. He denies nausea or vomiting. He denies abdominal pain. He is dialysis dependent and had a full run yesterday. - Past Medical History (1) CHF (congestive heart failure) Status: Chronic (2) Cardiomyopathy Status: Chronic (3) ESRD (end stage renal disease) on dialysis Status: Chronic (4) HTN (hypertension) Status: Chronic (5) Hyperlipidemia Status: Chronic (6) Seizure disorder Status: Chronic Past Medical History - Allergies and Home Meds Allergies/Adverse Reactions: Allergies Penicillins Allergy (Verified 12/16/18 06:42) Unknown sulfamethoxazole [From Bactrim] Allergy (Verified 12/16/18 06:42) Swelling trimethoprim [From Bactrim] Allergy (Verified 12/16/18 06:42) Swelling Primary Care Physician: Care Physician,No Primary [Primary Care Provider] - Prior records reviewed: Yes Past Medical History: - - Reviewed Surgical History: - - prosthetic right eye, Rt upper arm AVF, right adrenal gland removal for unknown reason Smoking Status: Current every day smoker - Family History Maternal Family History: Reports: Diabetes Paternal Family History: Reports: Heart Disease Review of Systems General: Reports: Chills, Fever, Subjective Eyes: Denies: Visual changes - bilaterally ENT: Denies: Bilateral ear pain Cardiovascular: Denies: Chest pain, Palpitations Respiratory: Denies: Dyspnea, Cough Gastrointestinal: Reports: - - Decreased appetite. Denies: Abdominal pain, Nausea, Vomiting, Diarrhea Musculoskeletal: Reports: Myalgias Skin: Denies: Rash, Wounds Neurological: Denies: Headache Allergy: Denies: Uticaria Physical Exam Vital Signs/Narrative: Vital Signs Temp Pulse Resp BP Pulse Ox 12/16/18 06:38 97.8 F 114 H 18 130/96 H 96 Inital Vital Signs reviewed: Yes General: Well nourished, Well developed Head: Normocephalic ENT: Moist mucous membranes Neck: Supple Cardiovascular: Regular rate, Regular rhythm Respiratory: No distress, CTA bilaterally Abdomen: Soft, Nontender, Hypoactive bowel sounds Extremities: Nontender Skin: Normal color, No rash Neurological: Alert, Oriented x3 Psychological: Normal affect Diagnostic/Tx/Re-eval Laboratory Results 12/16/18 12/16/18 08:10 08:10 WBC 3.5 L RBC 3.41 L Hgb 10.4 L Hct 33.3 L MCV 97.7 H MCH 30.5 MCHC 31.2 L RDW Std Deviation 59.4 H RDW Coeff of Dharmesh 16.9 H Plt Count 100 L MPV 10.9 Immature Gran % (Auto) 0.300 Neut % (Auto) 54.0 Lymph % (Auto) 29.7 Bollinger % (Auto) 9.7 Eos % (Auto) 5.4 H Baso % (Auto) 0.9 Absolute Neuts (auto) 1.9 L Absolute Lymphs (auto) 1.04 Nucleated RBC % 0 Plt Morphology Comment CLUM Sodium 143 Potassium 4.0 Chloride 98 Carbon Dioxide 34.0 H Anion Gap 11 BUN 37 H Creatinine 8.99 H* Estim Creat Clear Calc 8.85 Est GFR (MDRD) Af Amer 8 L Est GFR (MDRD) Non-Af 6 L BUN/Creatinine Ratio 4.1 L Glucose 112 H Calcium 7.7 L - Medical Decision Making Patient was given 15 mg of IV Toradol. On repeat evaluation is resting comfortably. Test results are discussed with him. He will be discharged to home. He will follow-up tomorrow for dialysis as scheduled. ED Disposition - Plan for ED Patient: Disposition: Home or Assisted Living Diagnosis: Viral syndrome Instructions: VIRAL SYNDROME (Adult) Additional Instructions: Follow-up tomorrow for dialysis as scheduled.
[2018-12-16] MEDS: Ketorolac 15 MG/ML Vial IV (08:11)
[2018-12-16 08:31] LABS: Absolute Lymphocyte Count 1.04 X10^3/uL (0.83-4.51); Absolute Neutrophil Count 1.9 X10^3/uL (2.0-7.7); Basophil# 0.03 X10^3/uL; Basophil% 0.9 % (0-1); Eosinophil# 0.19 X10^3/uL; Eosinophils% 5.4 % (0-5); Hematocrit 33.3 % (40-54); Hemoglobin 10.4 g/dL (13.0-16.5); Lymphocyte # 1.04 X10^3/ul (4.0); Lymphocyte % 29.7 % (19-41); Mean Corp Hgb Conc 31.2 g/dL (32-36); Mean Corpuscular Hgb 30.5 pg (27.0-32.0); Mean Corpuscular Volume 97.7 fL (80-94); Mean Platelet Vol. 10.9 fl (6.2-12.0); Monocyte# 0.34 X10^3/uL; Monocyte% 9.7 % (0-10); NRBC Flagged by Analyzer 0 % (0-5); Neutrophil # 1.89 X10^3/uL (2.7-7.7); POSITIVE COUNT YES; RBC Distribution Width CV 16.9 % (11.6-14.6); RBC Distribution Width SD 59.4 fl (35.1-43.9); Red Blood Count 3.41 M/mm3 (4.6-6.2); White Blood Count 3.5 K/mm3 (4.4-11.0)
[2018-12-16 08:45] LABS: Anion Gap 11 (5-15); BUN 37 mg/dL (7-18); BUN/Creat Ratio 4.1 RATIO (10-20); Calcium,Total 7.7 mg/dL (8.5-10.1); Chloride 98 mmol/L (98-107); Creatinine, Serum 8.99 mg/dL (0.70-1.30); EST Glomerular Filtration Rate 6 mL/min (>60); Est Glom Filt Rate - Afr Amer 8 mL/min (>60); Estimated Creatinine Clearance 8.85 ml/min; Glucose 112 mg/dL (74-106); Sodium Level 143 mmol/L (136-145)
[2018-12-16 09:28] LABS: Differential Indicated SCAN CRITERIA MET
[2018-12-16 10:01] VITALS: BP 123/88; PULSE 100; RESP 19; O2SAT 95
--- NOTE | 2018-12-16 10:03 | ED.RN ---
PT DID NOT TAKE DISCHARGE INSTRUCTIONS.
[2018-12-17 08:15] LABS: Platelet Estimate MOD INC (ADEQ)
[2018-12-17 08:16] LABS: Platelet Morphology CLUM
== END 2018-12-16 10:02 | disposition home or self-care (01) ==
PROVIDERS: Emergency Provider Emergency Medicine
DX: B34.9 Viral infection, unspecified (principal); I13.2 Hypertensive heart and chronic kidney disease with heart failure and with stage 5 chronic kidney disease, or end stage renal disease; N18.6 End stage renal disease; I50.9 Heart failure, unspecified; I42.9 Cardiomyopathy, unspecified; E78.5 Hyperlipidemia, unspecified; G40.909 Epilepsy, unspecified, not intractable, without status epilepticus; F17.200 Nicotine dependence, unspecified, uncomplicated; Z99.2 Dependence on renal dialysis; Z79.899 Other long term (current) drug therapy
CPT/HCPCS: 80048; 85025; 96374; 99285; A4216

== ENCOUNTER 2018-12-26 06:52 | Inpatient (IN) | payer MEDICARE, SELFPAY ==
[2018-12-26] VITALS (28 sets, daily range): BP systolic 76–140; BP diastolic 51–94; PULSE 77–113; RESP 14–24; TEMP 36.6–36.9; O2SAT 94–100; BMI 25.2; BMI 25.1
--- NOTE | 2018-12-26 07:01 | EKG12_ITS ---
Test Reason : SOB Blood Pressure : / mmHG Vent. Rate : 118 BPM Atrial Rate : 118 BPM P-R Int : 000 ms QRS Dur : 160 ms QT Int : 400 ms P-R-T Axes : 000 -05 152 degrees QTc Int : 560 ms Atrial fibrillation with rapid ventricular response Left bundle branch block Abnormal ECG Confirmed by RUBIO DINH, MIRIAM ([id number]), food editor LEVI ROSE ([id number]) on 01/02/2019 11:12:15 AM Referred By: ROME Confirmed By:MIRIAM BERGERON MD
--- NOTE | 2018-12-26 07:01 | RAD_ITS ---
STUDY: X-RAY CHEST REASON FOR EXAM: Male, 58 years old. Chest pain TECHNIQUE: Single AP portable view of the chest. COMPARISON: 12/03/2018 FINDINGS: The lungs are clear and expanded. There is no demonstrated pleural abnormality. There is moderate cardiac enlargement. Normal mediastinum and anselmo. There is prominence of the pulmonary hilar arteries without peripheral pulmonary vascular congestion, suggesting pulmonary hypertension. Normal visualized aortic arch and descending thoracic aorta. Normal visualized thoracic spine. There is degenerative osteoarthritis of the bilateral shoulders. There is no demonstrated abnormality of the visualized soft tissue structures of the upper abdomen. RAD/Chest 1 View (Portable) IMPRESSION: Moderate cardiomegaly. Possible pulmonary hypertension. Electronically Signed: Andie Coelho, at 7:48 EDT Tel , Service support ,
[2018-12-26 07:50] LABS: Absolute Lymphocyte Count 1.81 X10^3/uL (0.83-4.51); Absolute Neutrophil Count 2.5 X10^3/uL (2.0-7.7); Basophil# 0.06 X10^3/uL; Basophil% 1.1 % (0-1); Eosinophil# 0.22 X10^3/uL; Eosinophils% 4.2 % (0-5); Hematocrit 33.7 % (40-54); Hemoglobin 10.8 g/dL (13.0-16.5); Lymphocyte # 1.81 X10^3/ul (4.0); Lymphocyte % 34.3 % (19-41); Mean Corpuscular Hgb 30.3 pg (27.0-32.0); Mean Corpuscular Volume 94.7 fL (80-94); Mean Platelet Vol. 10.4 fl (6.2-12.0); Monocyte# 0.65 X10^3/uL; Monocyte% 12.3 % (0-10); Neutrophil % 47.5 % (47-70); Platelet Count 149 K/mm3 (150-450); RBC Distribution Width CV 18.3 % (11.6-14.6); RBC Distribution Width SD 61.5 fl (35.1-43.9); Red Blood Count 3.56 M/mm3 (4.6-6.2); White Blood Count 5.3 K/mm3 (4.4-11.0)
[2018-12-26] MEDS: dilTIAZem 25 MG/5 ML Vial 10 MG IV BOLUS ×2 (07:57→08:42)
[2018-12-26 08:06] LABS: NRBC Flagged by Analyzer 2.7 % (0-5)
[2018-12-26 08:14] LABS: Anion Gap 11 (5-15); BUN 55 mg/dL (7-18); BUN/Creat Ratio 4.4 RATIO (10-20); Calcium,Total 7.5 mg/dL (8.5-10.1); Chloride 100 mmol/L (98-107); EST Glomerular Filtration Rate 4 mL/min (>60); Est Glom Filt Rate - Afr Amer 5 mL/min (>60); Estimated Creatinine Clearance 6.41 ml/min; Glucose 99 mg/dL (74-106); Potassium 4.5 mmol/L (3.5-5.1); Sodium Level 142 mmol/L (136-145)
--- NOTE | 2018-12-26 08:26 | ED.VISSUMM ---
- ER Visit Summary Date of Service: 12/26/18 Chief Complaint: Irregular heartbeat History of Present Illness: The patient is a 58 M with a history of end-stage renal disease on hemodialysis. He presents today with an irregular heartbeat. He was at dialysis. They noted that his heartbeat was irregular and he was complaining of some shortness of breath. He did not complete dialysis, and was referred to the emergency department for evaluation. He said that he has had irregular heartbeats from time to time, but has not been diagnosed with any dysrhythmias like atrial fibrillation. He does not take blood thinners. He is not exactly sure when his symptoms started, but they were worse today. He does have a history of COPD. He says his shortness of breath, cough, and sputum are at baseline. He has a history of cardiomyopathy. He had a heart cath in February 2018 that showed normal coronaries. Prior EKGs showed a left bundle branch block pattern, but there was no record of atrial fibrillation. Physical Examination: Afebrile. Heart rate in the 110s. Otherwise vitals normal. Patient is slightly somnolent but awake. He exhibits psychomotor slowing. He is oriented. He has an irregular heartbeat. Lungs are clear. Abdomen soft. Right upper extremity fistula is unremarkable. Test Results: EKG showed atrial fibrillation at a rate of 118 with left bundle branch block pattern. Hemoglobin 10.8 and platelets 149, stable, BUN 55, creatinine 12.4, calcium 7.5. Troponin 0 0.117, at the upper end of his baseline. Chest x-ray showed an enlarged cardiac silhouette and evidence of pulmonary hypertension. Emergency Department Course and Treatment: Patient was placed on a monitor. IV access obtained. EKG done as above. Labs drawn. Monitor and EKG indicated atrial fibrillation. It appears that this is new. He was treated with Cardizem. His heart rate is around 100. Blood pressure remained stable. Patient is feeling slightly better. Given the new onset of atrial fibrillation, he will need further evaluation. I contacted the hospitalist. Treatment Plan: As above Disposition: Admission Impression: 1. New onset atrial fibrillation 2. End-stage renal disease This note was generated with [employer] software. It may contain incorrect words, spelling, and punctuation that were not noted in review of the chart prior to signing ED Disposition - Plan for ED Patient: Referrals: Care Physician,No Primary [Primary Care Provider] -
--- NOTE | 2018-12-26 08:39 | NURSING ---
HENRY ATRAVIKKI TOBIAS ASHELFAH
--- NOTE | 2018-12-26 09:29 | PCM.HP.STD ---
Problem List (1) Hyperlipidemia Status: Chronic Qualifiers: (2) Seizure disorder Status: Chronic (3) HTN (hypertension) Status: Chronic Qualifiers: (4) Anemia of chronic disease Status: Chronic (5) Cardiomyopathy Status: Chronic (6) CHF (congestive heart failure) Status: Chronic (7) ESRD (end stage renal disease) on dialysis Status: Chronic History of Present Illness Date of Admission: 12/26/18 Chief Complaint: Irregular heartbeats, shortness of breath. The patient is a 58 year old M with past medical history as mentioned above was referred to the emergency department from the dialysis center after he was noted to have regular heartbeats and he complains of shortness of breath. Today, patient went for dialysis and shortly after he was started on dialysis, was found to have irregular heartbeats. He complained of mild shortness of breath, mainly on exertion, mild to moderate exertion, relieved by rest and no other associated symptoms. He denied chest pain, palpitation, dizziness, lightheadedness, syncope or presyncope. He had a history of end-stage renal disease and he has been on dialysis on Mondays, Wednesdays and Fridays. He had a story of seizure disorder and he has been stable and Keppra. He had a history of chronic systolic CHF/cardiomyopathy and he has been stable on beta-blockers and diuretics. In the emergency department, patient was found to be in A. fib with RVR, heart rate was in 110-120s, blood pressure stable. He has been afebrile, pulse ox was 96% on 2 L. Routine blood work was remarkable for chronic anemia with stable hemoglobin, chronic thrombocytopenia, BUN of 55, creatinine of 12.4. His troponin was 0.117. EKG revealed A. fib with RVR, rate was 118, LBBB which is chronic and no acute changes. Chest x-ray revealed cardiomegaly and probable mild pulmonary vascular congestion. He is being admitted for new onset A. fib with RVR. Past Medical History Past Medical History (Chronic Problems): Chronic Problems Hyperlipidemia (Chronic) Seizure disorder (Chronic) HTN (hypertension) (Chronic) Anemia of chronic disease (Chronic) Cardiomyopathy (Chronic) CHF (congestive heart failure) (Chronic) ESRD (end stage renal disease) on dialysis (Chronic) Allergies Penicillins Allergy (Verified 12/26/18 06:57) Unknown sulfamethoxazole [From Bactrim] Allergy (Verified 12/26/18 06:57) Swelling trimethoprim [From Bactrim] Allergy (Verified 12/26/18 06:57) Swelling Home Medications: Ambulatory Orders Medication Instructions Recorded Calcium Acetate [Phoslo Gel Cap] 1,334 mg PO TIDCM 03/08/14 Loperamide [Imodium] 2 - 4 mg PO Q6H PRN PRN 08/21/16 Allopurinol [Zyloprim] 100 mg PO DAILYCM 02/18/18 Tamsulosin HCl [Flomax] 0.4 mg PO DAILY 02/18/18 Hydroxyzine HCl 25 mg PO Q8H PRN PRN 04/14/18 Levetiracetam 1 tab PO DAILY 04/14/18 Simvastatin 20 mg PO QHS 04/14/18 Acetaminophen with Codeine 1 tab PO Q6H PRN PRN 11/05/18 [Acetaminophen-Cod #2 Tablet] Carvedilol 6.25 mg PO BID 11/05/18 Furosemide 40 mg PO BID 11/05/18 Melatonin 5 mg PO QHS 11/05/18 Nitroglycerin 0.4 mg SL PRN PRN 11/05/18 DiphenhydrAMINE [Benadryl] 75 mg PO TID PRN PRN 11/26/18 Acetaminophen [Tylenol] 650 mg PO Q8H PRN PRN #30 cap 12/03/18 Gabapentin [Neurontin] 300 mg PO BID 12/26/18 Prednisone [Deltasone] 40 mg PO DAILY 12/26/18 traMADol [Ultram (G)] 50 mg PO Q8H PRN PRN 12/26/18 Surgical History: - - prosthetic right eye, Rt upper arm AVF, right adrenal gland removal for unknown reason Psychiatric History: No pertinent psych hx Smoking Status: Current every day smoker Tobacco Use: Cigarettes Alcohol: None Drugs: None - *Family History Maternal History Items: Diabetes Paternal History Items: Heart Disease Review of Systems Constitutional: Denies: Anorexia, Chills, Fever, Weakness Eyes: Denies: Blurred vision, Double vision, Drainage, Redness HEENT: Denies: Difficulty Hearing, Ear Pain, Eye Pain, Nasal Congestion, Sore Throat Cardiovascular: Denies: Chest Pain, Chest Pressure, Chest Tightness, Heaviness, Light Headedness, Palpitations, Syncope Respiratory: Reports: Cough, Shortness of breath upon exertion. Denies: Pleuritic Pain, Sputum production, Wheezing Gastrointestinal: Denies: Abdominal Pain, Constipation, Diarrhea, Nausea, Vomiting Genitourinary: Denies: Dysuria, Frequency, Hematuria Musculoskeletal: Denies: Arm Pain, Back Pain, Foot Pain Skin: Denies: Dryness, Rash Neurological: Denies: Balance problems, Double vision, Change in Speech, Slurred speech, Confusion, Headaches, Incoordination, Numbness Psychiatric: Denies: Anxiety, Depression VTE Information - Inpt Only VTE Present on Admission: No VTE Mechan Device Prophylaxis: None VTE Pharm Prophylaxis ordered?: Yes - Physical Exam General: Alert, Oriented x3, Cooperative, No apparent distress HEENT: Atraumatic, PERRLA, EOMI, Normocephalic Oral: Moist Mucosa, No Gingival or Mucosal Lesions/ Ulcerations Neck: Supple, No JVD, Negative Carotid Bruits, Trachea Midline, Thyroid Normal Size and Texture Lungs: Clear to auscultation, No rhonchi, No wheeze, No rales, Diminished Cardiovascular: Normal S1, Normal S2, No murmurs, PMI Normal, Irregular Rate, Tachycardic Abdomen: Bowel Sounds Present, Soft, Non Tender, Non-Distended, No Hepato-splenomegaly Extremities: No clubbing, No cyanosis, No edema Skin: No rashes, No breakdown Lymphatic: No Cervical, Supraclavicular, or Inguinal Adenopathy Neurological: Cranial nerves II-XII grossly intact, Motor Exam 5/5 strength throughout Psych/Mental Status: Normal Affect, Appropriate, Alert and oriented to time, place, person, mood and affect Vital Signs Temp Pulse Resp BP Pulse Ox 98.5 F 108 H 20 H 108/91 H 96 12/26/18 09:11 12/26/18 09:11 12/26/18 09:11 12/26/18 09:11 12/26/18 09:11 Oxygen Flow Rate (L/min) 2 Oxygen Delivery Method Room Air Weight: 165 lb 5.547 oz Body Mass Index (BMI) 25.1 Finger Stick Blood Glucose 95 Laboratory Tests Past 24 Hrs 12/26/18 12/26/18 12/26/18 07:44 07:44 07:44 WBC 5.3 RBC 3.56 L Hgb 10.8 L Hct 33.7 L MCV 94.7 H MCH 30.3 MCHC 32.0 RDW Std Deviation 61.5 H RDW Coeff of Dharmesh 18.3 H Plt Count 149 L MPV 10.4 Immature Gran % (Auto) 0.600 Neut % (Auto) 47.5 Lymph % (Auto) 34.3 [place] % (Auto) 12.3 H Eos % (Auto) 4.2 Baso % (Auto) 1.1 H Absolute Neuts (auto) 2.5 Absolute Lymphs (auto) 1.81 Nucleated RBC % 2.7 Diff Path Review May foll Sodium 142 Potassium 4.5 Chloride 100 Carbon Dioxide 31.0 Anion Gap 11 BUN 55 H Creatinine 12.40 H* Estim Creat Clear Calc 6.41 Est GFR (MDRD) Af Amer 5 L Est GFR (MDRD) Non-Af 4 L BUN/Creatinine Ratio 4.4 L Glucose 99 Calcium 7.5 L Magnesium Pending Troponin I 0.117 H TSH Pending Clinical Impression(s) from Imaging Studies Chest X-Ray 12/26/18 07:01 IMPRESSION: Moderate cardiomegaly. Possible pulmonary hypertension. Electronically Signed: Andie Coelho, at 7:48 EDT Tel , Service support , Assessment/Plan This is a 58 years old male patient was sent to the emergency department from the dialysis center because of irregular heartbeats and shortness of breath, found to have new onset A. fib with RVR and he is being admitted for evaluation and treatment. #1 new onset A. fib with RVR: EKG reviewed, revealed A. fib with RVR, LBBB, no acute changes. Rate has been around 110. Troponin is 0.117, has been elevated in the past in the setting of ESRD. Patient denied any chest pain. Patient received 2 doses of IV Cardizem bolus in the ED. Plan: Admit to PCU, cardiac monitoring, serial cardiac enzymes, repeat EKG tomorrow morning, check TSH, serum magnesium, 2D echocardiogram, increase dose of Coreg to 12.5 mg p.o. twice daily, repeat CBC and BMP tomorrow morning, PT OT evaluation and treatment. #2 indeterminate troponin: This is chronic in the setting of end-stage renal disease. Patient having chest pain. EKG revealed no acute changes, LBBB is chronic. He had an abnormal nuclear stress test back on February, for which he underwent cardiac catheterization at that time that showed normal coronary arteries. No indication for further cardiac work-up but will do serial cardiac enzymes in the setting of A. fib with RVR. #3 ESRD on hemodialysis: Today, he went for dialysis but that was not completed. He does not seem to be volume overloaded, potassium is normal. Plan: Nephrology consult. #4 chronic systolic CHF/cardiomyopathy: Clinically stable, compensated. Ejection fraction was 25% on echocardiogram on February,. Plan to do echocardiogram at this time, continue Lasix and Coreg. #5 seizure disorder: Stable, continue Keppra. #6 chronic anemia: It is due to anemia of chronic disease, hemoglobin and hematocrit are stable. #7 hypertension: Blood pressure stable, continue Coreg and Lasix. #8 hyperlipidemia: Continue statins. #9 DVT prophylaxis: Subcu heparin. This note was generated with [employer] dictation software. It may contain incorrect words, spelling, and punctuation that were not noted in checking the note before signing. Code Visit Inpatient E&M: 00479 Init Hosp L3
[2018-12-26 09:30] LABS: Magnesium 2.6 mg/dL (1.6-2.6); Thyroid Stim Hormone (TSH) 0.75 uIU/mL (0.358-3.74)
[2018-12-26] MEDS: Calcium Acetate 667 MG Capsule 1334 MG PO ×2 (10:42→17:33)
[2018-12-26] MEDS: Carvedilol 12.5 MG Tablet PO (10:42)
[2018-12-26] MEDS: guaiFENesin/Codeine 5 ML UDC 10 ML PO (10:42)
[2018-12-26] MEDS: Allopurinol 100 MG Tablet PO (10:42)
[2018-12-26] MEDS: Gabapentin 300 MG Capsule PO ×2 (10:43→21:10)
[2018-12-26] MEDS: Furosemide 40 MG Tablet PO ×2 (10:43→17:33)
[2018-12-26] MEDS: Tamsulosin HCl 0.4 MG Capsule PO (10:43)
[2018-12-26 11:07] LABS: International Normalized Ratio 1.4; Partial Thromboplast Time 38.9 Seconds (24.1-36.2); Prothrombin Time (Protime)PT. 17.3 SECONDS (11.7-14.9)
[2018-12-26] MEDS: levETIRAcetam 500 MG Tablet PO (11:35)
[2018-12-26] MEDS: HEPARIN/D5w 25,000 UNITS 25,000 UNITS/250 ML IV.SOLN. 11 UNITS IV (11:35)
--- NOTE | 2018-12-26 12:13 | PCM.CONS.R ---
Consultation - Renal PCP/ Referring MD: Requesting physician: [] Primary care physician: No Primary Care Phys Reason for Consultation:: ESRD - History of Present Illness History of Present Illness: The patient is a 58 year old M [] with past medical history of end-stage renal disease who presented with chief complaint of shortness of breath and irregular heartbeats with sudden onset during dialysis today. Apparently shortly after he was started on dialysis he was found to have irregular heartbeats and shortness of breath but no dizziness no syncope no chest pain no nausea no vomiting no palpitations. Currently he still has some mild shortness of breath though is better and he denies any other complaints. He had an episode of diarrhea yesterday for which he took some Imodium and now he denies abdominal pain hematochezia or melena. He is on dialysis Saturday nephrology is Dr. Spencer. He was found to be in A. fib RVR in the emergency room with a heart rate in the 110s 120s with stable blood pressure. He was given Cardizem IV x2 and currently his heart rate is below 100. He was found to have some mild pulmonary congestion on the chest x-ray in the emergency room. He denies discharge from the AV graft in the right arm or fever or chills or any other complaints. - Allergies Allergies: Allergies Penicillins Allergy (Verified 12/26/18 06:57) Unknown sulfamethoxazole [From Bactrim] Allergy (Verified 12/26/18 06:57) Swelling trimethoprim [From Bactrim] Allergy (Verified 12/26/18 06:57) Swelling - Current Medications Current Medications: Current Medications Acetaminophen (Tylenol) 650 mg PO Q6H PRN PRN PRN Reason: Fever, headache, pain Allopurinol (Zyloprim) 100 mg PO DAILYCM [facility] Last Admin: 12/26/18 10:42 Dose: 100 mg Documented by: Atorvastatin Calcium (Lipitor) 10 mg PO QHS [facility] Calcium Acetate (Phoslo Gel Cap) 1,334 mg PO TIDCM [facility] Last Admin: 12/26/18 10:42 Dose: 1,334 mg Documented by: Carvedilol (Coreg) 12.5 mg PO BID [facility] Last Admin: 12/26/18 10:42 Dose: 12.5 mg Documented by: Furosemide (Lasix) 40 mg PO BIDLX [facility] Last Admin: 12/26/18 10:43 Dose: 40 mg Documented by: Gabapentin (Neurontin) 300 mg PO BID [facility] Last Admin: 12/26/18 10:43 Dose: 300 mg Documented by: Guaifenesin/Codeine Phosphate (Robitussin Ac) 10 ml PO Q6H PRN PRN PRN Reason: COUGH/CONGESTION Last Admin: 12/26/18 10:42 Dose: 10 ml Documented by: Heparin Sodium (Porcine) (Heparin Na) 0 unit IV UD PRN; Protocol Hydroxyzine Pamoate (Vistaril Pamoate Capsule) 25 mg PO Q8H PRN PRN PRN Reason: ANXIETY Heparin Sodium/Dextrose () 25,000 units in 250 mls @ 11 mls/hr IV .[id number] [facility]; Protocol Last Admin: 12/26/18 11:35 Dose: 1,100 units/hr, 11 mls/hr Documented by: Sodium Chloride () 250 mls @ 15 mls/hr IV .[id number] PRN PRN Reason: Saline Flush Levetiracetam (Keppra Tablet) 500 mg PO DAILY [facility] Last Admin: 12/26/18 11:35 Dose: 500 mg Documented by: Melatonin (Melatonin) 5 mg PO QHS [facility] Ondansetron HCl (Zofran) 4 mg IV Q8H PRN PRN PRN Reason: NAUSEA/VOMITING Sodium Chloride () 5 - 15 ml IV UD PRN PRN Reason: SALINE FLUSH Tamsulosin HCl (Flomax) 0.4 mg PO DAILY [facility] Last Admin: 12/26/18 10:43 Dose: 0.4 mg Documented by: Tramadol HCl (Ultram) 50 mg PO Q8H PRN PRN PRN Reason: Pain Score 1-10/10 - Past Medical History Past Medical History (Chronic Problems): Chronic Problems Hyperlipidemia (Chronic) Seizure disorder (Chronic) HTN (hypertension) (Chronic) Anemia of chronic disease (Chronic) Cardiomyopathy (Chronic) CHF (congestive heart failure) (Chronic) ESRD (end stage renal disease) on dialysis (Chronic) - Past Surgical History Surgical History: - - prosthetic right eye, Rt upper arm AVF, right adrenal gland removal for unknown reason - Social History Smoking Status: Current every day smoker Alcohol: None Drugs: None - Family History Maternal History Items: Diabetes Paternal History Items: Heart Disease Review of Systems Constitutional: Reports: - - Review of systems is otherwise negative unless noted in the history of present illness. - Physical Exam General: Alert - Right arm AV graft no signs of inflammation no discharge good thrill and bruit, Oriented x3, Cooperative HEENT: Atraumatic, PERRLA, EOMI, Normocephalic Neck: Supple, No JVD, Negative Carotid Bruits Lungs: Clear to auscultation, Normal air movement Cardiovascular: Regular rate, No murmurs Abdomen: Bowel Sounds Present, Soft, Non Tender Extremities: No edema, Capillary Refill Less than 3 Seconds Skin: No rashes, No breakdown Musculoskeletal: No Tenderness to Palpation of Joints or Extremities Neurological: Cranial nerves II-XII grossly intact Psych/Mental Status: Normal Affect, Appropriate Vital Signs Temp Pulse Resp BP Pulse Ox 98.5 F 108 H 20 H 108/91 H 94 12/26/18 09:11 12/26/18 09:11 12/26/18 09:11 12/26/18 09:11 12/26/18 11:14 Oxygen Flow Rate (L/min) 2 Oxygen Delivery Method Nasal Cannula Weight: 75 kg Body Mass Index (BMI) 25.1 Finger Stick Blood Glucose 95 Intake and Output for Last 24 Hours 12/24/18 12/25/18 12/26/18 23:59 23:59 23:59 Intake Total 600 / 600 Balance 600 / 600 Laboratory Tests Past 24 Hrs 12/26/18 12/26/18 12/26/18 07:44 07:44 07:44 WBC 5.3 RBC 3.56 L Hgb 10.8 L Hct 33.7 L MCV 94.7 H MCH 30.3 MCHC 32.0 RDW Std Deviation 61.5 H RDW Coeff of Dharmseh 18.3 H Plt Count 149 L MPV 10.4 Immature Gran % (Auto) 0.600 Neut % (Auto) 47.5 Lymph % (Auto) 34.3 [place] % (Auto) 12.3 H Eos % (Auto) 4.2 Baso % (Auto) 1.1 H Absolute Neuts (auto) 2.5 Absolute Lymphs (auto) 1.81 Nucleated RBC % 2.7 Diff Path Review May foll PT INR APTT Sodium 142 Potassium 4.5 Chloride 100 Carbon Dioxide 31.0 Anion Gap 11 BUN 55 H Creatinine 12.40 H* Estim Creat Clear Calc 6.41 Est GFR (MDRD) Af Amer 5 L Est GFR (MDRD) Non-Af 4 L BUN/Creatinine Ratio 4.4 L Glucose 99 Calcium 7.5 L Magnesium 2.6 Troponin I 0.117 H TSH 0.75 12/26/18 12/26/18 10:46 10:46 WBC RBC Hgb Hct MCV MCH MCHC RDW Std Deviation RDW Coeff of Dharmesh Plt Count MPV Immature Gran % (Auto) Neut % (Auto) Lymph % (Auto) [place] % (Auto) Eos % (Auto) Baso % (Auto) Absolute Neuts (auto) Absolute Lymphs (auto) Nucleated RBC % Diff Path Review PT 17.3 H INR 1.4 APTT 38.9 H Sodium Potassium Chloride Carbon Dioxide Anion Gap BUN Creatinine Estim Creat Clear Calc Est GFR (MDRD) Af Amer Est GFR (MDRD) Non-Af BUN/Creatinine Ratio Glucose Calcium Magnesium Troponin I 0.114 H TSH Assessment/Plan 1.ESRD?continue Saturday dialysis. We will dialyze today with UF as tolerated. 2.anemia of chronic kidney disease?Epogen today continue to monitor transfuse as needed 3. CKD?MBD?continue binders monitor phosphorus periodically and calcium. 4.hypertension?controlled continue current medications 5.A. fib RVR currently rate control per primary team. Follow-up 2D echo. 6.elevated troponin follow-up troponin trend the patient has a history of CHF and cardiomyopathy as per primary team. The above assessment and plan was discussed at length with the patient who voiced understanding and agrees to proceed with the plan as outlined above. He was given the opportunity to ask questions and stated that those were answered to his satisfaction. Thank you very much for allowing me to participate in the care of this patient. Please do not hesitate to call if you have any questions or concerns.
--- NOTE | 2018-12-26 13:20 | PCM.CONS.C ---
Problem List (1) Atrial fibrillation Status: Acute Qualifiers: Atrial fibrillation type: paroxysmal Qualified Code(s): I48.0 - Paroxysmal atrial fibrillation (2) Cardiomyopathy Status: Chronic Qualifiers: Cardiomyopathy type: unspecified Qualified Code(s): I42.9 - Cardiomyopathy, unspecified (3) CHF (congestive heart failure) Status: Chronic Qualifiers: Heart failure type: systolic Heart failure chronicity: chronic Qualified Code(s): I50.22 - Chronic systolic (congestive) heart failure (4) Hyperlipidemia Status: Chronic Qualifiers: (5) HTN (hypertension) Status: Chronic Qualifiers: (6) ESRD (end stage renal disease) on dialysis Status: Chronic Reason for Consult Date of Consultation: 12/26/18 History of Present Illness: The patient is a 58 year [id number] -[place] male with a past medical history including non-CAD related cardiomyopathy, chronic systolic CHF, hyperlipidemia, hypertension, and end-stage renal disease on chronic hemodialysis who is referred from hemodialysis today for findings of atrial fibrillation. The patient presented to dialysis today. According to the patient and medical records available for review the patient was found to be in atrial fibrillation with rapid ventricular response. The EMS was called and he was subsequently transported to the [facility] emergency department. The patient was evaluated and thought to have episodes of atrial fibrillation with RVR. He was subsequently placed in PCU for further evaluation and care. The patient does not recall having obvious palpitations or rapid rates. He notes his main concern has been shortness of breath and dyspnea. This is a chronic issue for him. He has denied ongoing chest discomfort, near-syncope/syncope, or worsening peripheral pitting edema. He states he has not missed any of his dialysis episodes which occur on Saturday, Saturday, and Saturday. His troponin I level was indeterminant. His EMS ECG suggestive of underlying sinus versus ectopic atrial rhythm with PACs with a left bundle branch block pattern. His [facility] ECG had similar findings with the possibility of paroxysmal atrial fibrillation. On his cardiac telemetry there appeared to be similar type findings. His chest x-ray suggested no obvious acute cardiopulmonary condition. Since being in the hospital he did receive IV diltiazem to assist with his rate control. He subsequently was continued on beta-clement therapy with increased dose. He was also placed on IV heparin pending further evaluation and care. He is being prepared for dialysis at this time. [] Past Medical History Allergies/Adverse Reactions: Allergies Penicillins Allergy (Verified 12/26/18 06:57) Unknown sulfamethoxazole [From Bactrim] Allergy (Verified 12/26/18 06:57) Swelling trimethoprim [From Bactrim] Allergy (Verified 12/26/18 06:57) Swelling Home Medications: Ambulatory Orders Medication Instructions Recorded Calcium Acetate [Phoslo Gel Cap] 1,334 mg PO TIDCM 03/08/14 Loperamide [Imodium] 2 - 4 mg PO Q6H PRN PRN 08/21/16 Allopurinol [Zyloprim] 100 mg PO DAILYCM 02/18/18 Tamsulosin HCl [Flomax] 0.4 mg PO DAILY 02/18/18 Hydroxyzine HCl 25 mg PO Q8H PRN PRN 04/14/18 Levetiracetam 1 tab PO DAILY 04/14/18 Simvastatin 20 mg PO QHS 04/14/18 Acetaminophen with Codeine 1 tab PO Q6H PRN PRN 11/05/18 [Acetaminophen-Cod #2 Tablet] Carvedilol 6.25 mg PO BID 11/05/18 Furosemide 40 mg PO BID 11/05/18 Melatonin 5 mg PO QHS 11/05/18 Nitroglycerin 0.4 mg SL PRN PRN 11/05/18 DiphenhydrAMINE [Benadryl] 75 mg PO TID PRN PRN 11/26/18 Acetaminophen [Tylenol] 650 mg PO Q8H PRN PRN #30 cap 12/03/18 Gabapentin [Neurontin] 300 mg PO BID 12/26/18 Prednisone [Deltasone] 40 mg PO DAILY 12/26/18 traMADol [Ultram (G)] 50 mg PO Q8H PRN PRN 12/26/18 Past Medical History (Chronic Problems): Chronic Problems Hyperlipidemia (Chronic) Seizure disorder (Chronic) HTN (hypertension) (Chronic) Anemia of chronic disease (Chronic) Cardiomyopathy (Chronic) CHF (congestive heart failure) (Chronic) ESRD (end stage renal disease) on dialysis (Chronic) Surgical History: - - prosthetic right eye, Rt upper arm AVF, right adrenal gland removal for unknown reason Psychiatric History: No pertinent psych hx - *Family History Maternal History Items: Diabetes Paternal History Items: Heart Disease Smoking Status: Current every day smoker Tobacco Use: Cigarettes Alcohol: None Drugs: None Review of Systems - Review of Systems General: Reports: Fatigue. Denies: Fever, Night Sweats Cardiovascular: Reports: Shortness of Breath. Denies: Chest Discomfort, Orthopnea, PND, Peripheral Edema, Palpitations, Lightheadedness, Dizziness, Near Syncope, Syncope Respiratory: Reports: Shortness of Breath. Denies: Cough, Sputum Production, Hemoptysis Gastrointestinal: Denies: Hematemesis, Hematochezia, Melena Genitourinary: Denies: Dysuria, Hematuria Skin: Denies: Rash Subjectve: This is a 58-year-old thin -[place] male who appears to be resting in the supine position in no acute distress. Objective: Vital Signs Temp Pulse Resp BP Pulse Ox 98.5 F 108 H 20 H 108/91 H 94 12/26/18 09:11 12/26/18 09:11 12/26/18 09:11 12/26/18 09:11 12/26/18 11:14 Oxygen Flow Rate (L/min) 2 Oxygen Delivery Method Nasal Cannula Weight: 165 lb 5.547 oz Body Mass Index (BMI) 25.1 Finger Stick Blood Glucose 95 Intake and Output for Last 24 Hours 12/24/18 12/25/18 12/26/18 23:59 23:59 23:59 Intake Total 600 / 600 Balance 600 / 600 General: Awake, Alert, Oriented x 3, Cooperative, No Acute Distress HEENT: Atraumatic, Normocephalic, PERRL, EOMI Oral: Poor Dentition Neck: Supple, Good ROM, No JVD Lungs: Clear to auscultation Cardiovascular: Regular Rhythm, Premature Ectopic Beats, Normal S1, Normal S2 Murmur Murmur: Grade 2/6, Soft, Mid Systolic, LLSB, LVOT Vascular: No Carotid Bruits, - - Right upper extremity: Positive thrill/bruit Abdomen: Bowel Sounds Present, Soft, Non Tender Extremities: No edema Psych/Mental Status: Appropriate 12/26/18 07:44: WBC 5.3, RBC 3.56 L, Hgb 10.8 L, Hct 33.7 L, MCV 94.7 H, MCH 30.3, MCHC 32.0, Plt Count 149 L, MPV 10.4, Immature Gran % (Auto) 0.600, Neut % (Auto) 47.5, Lymph % (Auto) 34.3, [place] % (Auto) 12.3 H, Eos % (Auto) 4.2, Baso % (Auto) 1.1 H, Absolute Neuts (auto) 2.5, Nucleated RBC % 2.7 12/26/18 07:44: Sodium 142, Potassium 4.5, Chloride 100, Carbon Dioxide 31.0, Anion Gap 11, BUN 55 H, Creatinine 12.40 H*, Est GFR (MDRD) Af Amer 5 L, Est GFR (MDRD) Non-Af 4 L, BUN/Creatinine Ratio 4.4 L, Glucose 99, Calcium 7.5 L, Troponin I 0.117 H 12/26/18 07:44: Magnesium 2.6 12/26/18 10:46: Troponin I 0.114 H 12/26/18 10:46: PT 17.3 H, INR 1.4, APTT 38.9 H Rhythm: Sinus versus ectopic atrial rhythm; PACs; episodes potentially compatible with paroxysmal atrial fibrillation with RVR EKG: As noted above ECHO: 02-19-18 Technically difficult study Contrast injection performed Severely dilated left ventricle with severe global left ventricular systolic dysfunction with an estimated LVEF 25% Mild left atrial enlargement Trivial MR Trivial TR Trivial FL Estimated RV systolic pressure 26 mmHg Decreased diastolic compliance 2D echocardiographic images obtained of the left ventricle. Potentially compatible with a non-compaction cardiomyopathy Stress Test: Stress Test Report Date: 02/18/2018 Procedure: Pharmacologic stress nuclear imaging study Indications: Chest pain; shortness of breath; cardiomyopathy Consent: Per the patient Procedure: The patient underwent pharmacologic (Regadenoson) evaluation with a peak heart rate of 103 beats per minute (63 predicted maximal heart rate) and a peak blood pressure of 108/76 mmHg. The baseline ECG demonstrated normal sinus rhythm; left bundle branch block pattern. The peak pharmacologic ECG demonstrated continued left bundle branch block pattern. [There were no cardiac dysrhythmias pretest, during pharmacologic infusion, or recovery]. [There was no complaint of chest discomfort during pharmacologic infusion or recovery]. The examination was discontinued secondary to completion of protocol. Impression: 1. Pharmacologic (Regadenoson) evaluation 2. Peak pharmacologic ECG with continued left bundle branch block pattern and considered indeterminant secondary to the underlying left bundle branch block pattern. 3. [There were no cardiac dysrhythmias pretest, during pharmacologic infusion, or recovery]. 4. Nuclear images pending Myocardial perfusion imaging study: Technique: The patient was injected with 10.6 millicuries of technetium 99m Cardiolite and subsequently rest SPECT Cardiolite nuclear imaging was obtained in the horizontal long, vertical long, and short axis views. The patient underwent pharmacologic (Regadenoson) evaluation with a peak heart rate of 103 beats per minute (63 % percent predicted maximal heart rate) and a peak blood pressure of 108/76 mmHg. The patient was injected with 32.1 millicuries of technetium 99m Cardiolite and subsequently stress SPECT Cardiolite nuclear imaging was obtained in the horizontal long, vertical long, and short axis views. A gated Cardiolite study at peak stress was obtained. Interpretation: Rest and stress SPECT Cardiolite nuclear imaging status post realignment, normalization, and attenuation correction demonstrate an area of diminished tracer uptake near the apical segments, however, status post stress there is notation of diminished tracer uptake in the mid to distal anterior segments/anterior apical segments. There is diminished end-systolic thickening and brightening. The gated Cardiolite study demonstrates diminished myocardial thickening and end were wall motion. The reported LVEF is 27 %. Impression: 1. Rest and stress SPECT Cardiolite nuclear imaging demonstrate myocardial perfusion changes appearing compatible with an element of physiologic apical thinning and appearing compatible with an area of stress-induced myocardial ischemia in portions of the mid to distal anterior and anterior apical segments. 2. The gated Cardiolite study reports an LVEF of 27%. Cardiac Cath: 02-18-18 CONCLUSIONS Elevated Left Ventricular End Diastolic Pressure Normal coronary arteries RECOMMENDATIONS Medical therapy CORONARY ANGIOGRAPHY DOMINANCE: Left Dominant LEFT HEART ASSESSMENT Left Ventricular Ejection Fraction: Not assessed Elevated Left Ventricular End Diastolic Pressure LVEDP: 16 mmHg LEFT MAIN: Angiographically normal LEFT ANTERIOR DECENDING ARTERY: Angiographically normal CIRCUMFLEX ARTERY: Angiographically normal RIGHT CORONARY ARTERY: Angiographically normal Chest x-ray: As noted above Assessment/Plan 1. Cardiac dysrhythmia/paroxysmal atrial fibrillation with RVR The patient was reported by hemodialysis as having atrial fibrillation. His subsequent ECGs and cardiac rhythm have demonstrated the appearance of underlying sinus rhythm/ectopic atrial rhythm with PACs as well as intermittent episodes of a somewhat rapid irregular rate potentially compatible with paroxysmal atrial fibrillation with RVR superimposed upon his underlying left bundle branch block pattern. At the present time he is being monitored. His cardiac enzymes have been indeterminant. His ECG and chest x-ray are as noted above. He is pending reevaluation of his left ventricular wall motion and systolic function with a transthoracic echocardiogram. He has undergone previous noninvasive and invasive studies including diagnostic cardiac catheterization-demonstrating angiographically normal-appearing coronary arteries-as noted above. At the present time would be reasonable to continue to evaluate him for any other etiology that may be contributing factor to his cardiac dysrhythmia above and beyond his underlying cardiovascular condition, etc. He will continue rate control therapy. It may not be unreasonable to consider antiarrhythmic therapy such as IV amiodarone to assist with rate control as well as rhythm control. He has been placed on IV heparin therapy at this time. He may need to be changed to oral systemic anticoagulant therapy going forward. 2. Non-CAD related cardiomyopathy He has been shown in the past to have evidence of a non-CAD related cardiomyopathy. He will need continued medical management as deemed appropriate. 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 He is going to be reassessed with an echocardiogram. If his left ventricular wall motion systolic function remain markedly diminished despite appropriate medical management, etc., then he should be considered for future EP consultation for primary prevention ICD. 3. Chronic systolic CHF He does have a history of chronic systolic mediated CHF. He will need to continue medical management and dialysis therapy as best as possible to maintain his volume status. 4. Hyper lipidemia He will continue risk factor modification medical therapy as deemed appropriate. 5. Hypertension He will continue medical management and dialysis therapy as deemed appropriate to assist with blood pressure control. 6. End-stage renal failure on chronic hemodialysis He will continue under evaluation care of nephrology. Comment: Patient's case was discussed and reviewed with the patient and Dr. Rod. This note was generated using a voice recognition system and there may be incorrect words, spelling or punctuation that were not noted when reviewing the office note prior to saving.
[2018-12-26] MEDS: Heparin 10,000 UNITS/10 ML Vial 2000 UNITS IV (13:45)
[2018-12-26 14:35] LABS: Pathologist Review Reviewed
[2018-12-26] MEDS: 0.9% Saline Lock 10 ML Syringe IV (14:55)
[2018-12-26] MEDS: Epoetin Alfa epbx 10,000 UNITS/ML 10000 UNIT SC (15:24)
--- NOTE | 2018-12-26 16:25 | CHAPLAIN ---
Type of Pastoral Visit _x__ Initial Visit ___ Follow-up Visit ___ On-call Visit ___ General Patient Visit ___ Spiritual Assessment ___ Family Conference ___ Bereavement ___ Rapid Response ___ Code Blue ___ Other (describe below) Pastoral Care Referral From _x__ Patient ___ Family ___ Nurse ___ Physician ___ King Maker ___ Pipe Organ Mechanic ___ Other (describe below) Sacrament/Intervention ___ Active listening ___ Anointing ___ Mormonism ___ Bereavement ___ Communion ___ [place] exploration ___ ___ Life review ___ Prayer ___ Reconciliation ___ Sacrament of Sick _x__ Supportive presence ___ Wedding ___ Other (describe below) Pastoral Comments patient is having dialysis at this time; pt has a difficult time being awake and so visit was very brief with promise of future support and prayers
--- NOTE | 2018-12-26 17:50 | DIALYSIS ---
Hemodialysis x 3.5 hours completed at 1719. UF 3.5 liters fluid removed. Patient tolerated treatment well, stable.
[2018-12-26 18:41] LABS: Partial Thromboplast Time 45.4 Seconds (24.1-36.2)
[2018-12-26] MEDS: Heparin Injection (Vial) 5,000 UNIT/ML VIAL IV (18:44)
[2018-12-26] MEDS: Atorvastatin Calcium 10 MG Tablet PO (21:11)
[2018-12-26] MEDS: MELATONIN 10 MG TABLET 5 MG PO (21:11)
[2018-12-27] VITALS (23 sets, daily range): BP systolic 81–145; BP diastolic 56–95; PULSE 76–99; RESP 14–26; TEMP 36.4–36.8; O2SAT 92–100
[2018-12-27] MEDS: Acetaminophen 325 MG Tablet 650 MG PO (01:27)
[2018-12-27 01:54] LABS: Partial Thromboplast Time 94.4 Seconds (24.1-36.2)
--- NOTE | 2018-12-27 05:55 | EKG12_ITS ---
Test Reason : AM EKG Blood Pressure : / mmHG Vent. Rate : 086 BPM Atrial Rate : 086 BPM P-R Int : 188 ms QRS Dur : 166 ms QT Int : 522 ms P-R-T Axes : 046 020 157 degrees QTc Int : 624 ms Sinus rhythm with Premature atrial complexes Possible Left atrial enlargement Left bundle branch block Abnormal ECG When compared with ECG of 26-DEC-2018 07:22, MANUAL COMPARISON REQUIRED, DATA IS UNCONFIRMED Confirmed by MODESTA DINH, MEHDI ([id number]), content editor LEVI ROSE ([id number] on 01/02/2019 11:32:29 AM Referred By: JIM Confirmed By:MEHDI BYERS MD
[2018-12-27 07:12] LABS: Absolute Lymphocyte Count 1.91 X10^3/uL (0.83-4.51); Absolute Neutrophil Count 2.7 X10^3/uL (2.0-7.7); Basophil# 0.05 X10^3/uL; Basophil% 0.9 % (0-1); Eosinophil# 0.14 X10^3/uL; Eosinophils% 2.5 % (0-5); Hematocrit 33.2 % (40-54); Hemoglobin 10.6 g/dL (13.0-16.5); Lymphocyte # 1.91 X10^3/ul (4.0); Lymphocyte % 34.2 % (19-41); Mean Corp Hgb Conc 31.9 g/dL (32-36); Mean Corpuscular Hgb 30.5 pg (27.0-32.0); Mean Corpuscular Volume 95.7 fL (80-94); Mean Platelet Vol. 10.8 fl (6.2-12.0); Monocyte% 14.3 % (0-10); Neutrophil # 2.65 X10^3/uL (2.7-7.7); Neutrophil % 47.6 % (47-70); Platelet Count 119 K/mm3 (150-450); RBC Distribution Width CV 18.2 % (11.6-14.6); RBC Distribution Width SD 62.2 fl (35.1-43.9); Red Blood Count 3.47 M/mm3 (4.6-6.2); White Blood Count 5.6 K/mm3 (4.4-11.0)
[2018-12-27 07:26] LABS: Partial Thromboplast Time 139.7 Seconds (24.1-36.2)
[2018-12-27 07:29] LABS: NRBC Flagged by Analyzer 2.7 % (0-5)
[2018-12-27 07:36] LABS: Anion Gap 11 (5-15); BUN 39 mg/dL (7-18); BUN/Creat Ratio 3.9 RATIO (10-20); Chloride 100 mmol/L (98-107); Creatinine, Serum 9.97 mg/dL (0.70-1.30); EST Glomerular Filtration Rate 6 mL/min (>60); Est Glom Filt Rate - Afr Amer 7 mL/min (>60); Estimated Creatinine Clearance 7.72 ml/min; Glucose 111 mg/dL (74-106); Potassium 4.1 mmol/L (3.5-5.1); Sodium Level 136 mmol/L (136-145)
--- NOTE | 2018-12-27 08:48 | PCM.PROGNOTE ---
Patient Problems: Active and Suspected Problems Atrial fibrillation (Acute) Subjective: Chief complaint: Follow-up after admission for new onset paroxysmal A. fib with RVR. Patient seen and examined. No acute events overnight. He denies any complaints. He remains in A. fib in and out, heart rate has been controlled. Other vital signs are stable. - Physical Exam General: Alert, Oriented x3, Cooperative, No apparent distress HEENT: Atraumatic, PERRLA, EOMI, Normocephalic Oral: Moist Mucosa, No Gingival or Mucosal Lesions/ Ulcerations Neck: Supple, No JVD, Negative Carotid Bruits, Trachea Midline, Thyroid Normal Size and Texture Lungs: No wheeze, No rales, Diminished, Rhonchi, - - Diminished breath sounds bilateral. Cardiovascular: Normal S1, Normal S2, No murmurs, PMI Normal, Irregular Rate Abdomen: Bowel Sounds Present, Soft, Non Tender, Non-Distended, No Hepato-splenomegaly Extremities: No clubbing, No cyanosis, No edema Skin: No rashes, No breakdown Lymphatic: No Cervical, Supraclavicular, or Inguinal Adenopathy Neurological: Cranial nerves II-XII grossly intact, Neuro grossly intact Psych/Mental Status: Normal Affect, Appropriate, Alert and oriented to time, place, person, mood and affect Vital Signs Temp Pulse Resp BP Pulse Ox 97.5 F L 84 25 H 126/59 H 99 12/27/18 08:00 12/27/18 08:00 12/27/18 08:00 12/27/18 08:00 12/27/18 07:23 Oxygen Flow Rate (L/min) 2 Oxygen Delivery Method Nasal Cannula Weight: 167 lb 12.348 oz Body Mass Index (BMI) 25.1 Finger Stick Blood Glucose 95 Intake and Output for Last 24 Hours 12/25/18 12/26/18 12/27/18 23:59 23:59 23:59 Intake Total 1583.17 / 2079.87 954.3 / 954.3 Output Total 7000 / 7000 Balance -5416.83 / -4920.13 954.3 / 954.3 Laboratory Tests Past 24 Hrs 12/26/18 12/26/18 12/26/18 07:44 07:44 10:46 WBC RBC Hgb Hct MCV MCH MCHC RDW Std Deviation RDW Coeff of Dharmesh Plt Count MPV Immature Gran % (Auto) Neut % (Auto) Lymph % (Auto) [place] % (Auto) Eos % (Auto) Baso % (Auto) Absolute Neuts (auto) Absolute Lymphs (auto) Nucleated RBC % Diff Path Review Reviewed PT INR APTT Sodium Potassium Chloride Carbon Dioxide Anion Gap BUN Creatinine Estim Creat Clear Calc Est GFR (MDRD) Af Amer Est GFR (MDRD) Non-Af BUN/Creatinine Ratio Glucose Calcium Magnesium 2.6 Troponin I 0.114 H TSH 0.75 12/26/18 12/26/18 12/26/18 10:46 14:15 17:49 WBC RBC Hgb Hct MCV MCH MCHC RDW Std Deviation RDW Coeff of Dharmesh Plt Count MPV Immature Gran % (Auto) Neut % (Auto) Lymph % (Auto) [place] % (Auto) Eos % (Auto) Baso % (Auto) Absolute Neuts (auto) Absolute Lymphs (auto) Nucleated RBC % Diff Path Review PT 17.3 H INR 1.4 APTT 38.9 H 45.4 H Sodium Potassium Chloride Carbon Dioxide Anion Gap BUN Creatinine Estim Creat Clear Calc Est GFR (MDRD) Af Amer Est GFR (MDRD) Non-Af BUN/Creatinine Ratio Glucose Calcium Magnesium Troponin I 0.096 H TSH 12/27/18 12/27/18 12/27/18 01:21 07:04 07:04 WBC 5.6 RBC 3.47 L Hgb 10.6 L Hct 33.2 L MCV 95.7 H MCH 30.5 MCHC 31.9 L RDW Std Deviation 62.2 H RDW Coeff of Dharmesh 18.2 H Plt Count 119 L MPV 10.8 Immature Gran % (Auto) 0.500 Neut % (Auto) 47.6 Lymph % (Auto) 34.2 [place] % (Auto) 14.3 H Eos % (Auto) 2.5 Baso % (Auto) 0.9 Absolute Neuts (auto) 2.7 Absolute Lymphs (auto) 1.91 Nucleated RBC % 2.7 [address] Review PT INR APTT 94.4 H* Sodium 136 Potassium 4.1 Chloride 100 Carbon Dioxide 25.0 Anion Gap 11 BUN 39 H Creatinine 9.97 H* Estim Creat Clear Calc 7.72 Est GFR (MDRD) Af Amer 7 L Est GFR (MDRD) Non-Af 6 L BUN/Creatinine Ratio 3.9 L Glucose 111 H Calcium 7.0 L Magnesium Troponin I TSH 12/27/18 07:04 WBC RBC Hgb Hct MCV MCH MCHC RDW Std Deviation RDW Coeff of Dharmesh Plt Count MPV Immature Gran % (Auto) Neut % (Auto) Lymph % (Auto) [place] % (Auto) Eos % (Auto) Baso % (Auto) Absolute Neuts (auto) Absolute Lymphs (auto) Nucleated RBC % Diff Path Review PT INR APTT 139.7 H* Sodium Potassium Chloride Carbon Dioxide Anion Gap BUN Creatinine Estim Creat Clear Calc Est GFR (MDRD) Af Amer Est GFR (MDRD) Non-Af BUN/Creatinine Ratio Glucose Calcium Magnesium Troponin I TSH Medical Necessity - Tobacco Use Smoking Status: Current every day smoker Tobacco Use: Cigarettes Assessment/Plan All Active Problems Atrial fibrillation (Acute) This is a 58 years old male patient was sent to the emergency department from the dialysis center because of irregular heartbeats and shortness of breath, found to have new onset A. fib with RVR and he is being admitted for evaluation and treatment. #1 new onset paroxysmal A. fib with RVR: Started on IV amiodarone drip, remains on Coreg twice daily. He is on IV heparin drip for anticoagulation. Rate is controlled, blood pressure stable. Serum potassium and magnesium were normal. TSH was normal. EKG reviewed, revealed A. fib with RVR, LBBB, no acute changes. Troponin is chronically elevated and trending down. 2D echocardiogram done this morning, awaiting the report. Cardiology on the case. Plan to continue same treatment. #2 indeterminate troponin: This is chronic in the setting of end-stage renal disease. Patient having chest pain. EKG revealed no acute changes, LBBB is chronic. He had an abnormal nuclear stress test back on February, for which he underwent cardiac catheterization at that time that showed normal coronary arteries. #3 ESRD on hemodialysis: Nephrology consulted and patient underwent hemodialysis yesterday. Today's kidney function is stable, potassium is normal. #4 chronic systolic CHF/cardiomyopathy: Clinically stable, compensated. Ejection fraction was 25% on echocardiogram on February,. Continue Lasix and Coreg. Awaiting 2D echocardiogram. #5 seizure disorder: Stable, continue Keppra. #6 chronic anemia: It is due to anemia of chronic disease, hemoglobin and hematocrit are stable. #7 hypertension: Blood pressure stable, continue Coreg and Lasix. #8 hyperlipidemia: Continue statins. #9 DVT prophylaxis: Subcu heparin. This note was generated with [employer] dictation software. It may contain incorrect words, spelling, and punctuation that were not noted in checking the note before signing. Code Visit Inpatient E&M: 41312 Subs Hosp L2
[2018-12-27] MEDS: Calcium Acetate 667 MG Capsule 1334 MG PO ×3 (09:03→17:40)
[2018-12-27] MEDS: Carvedilol 12.5 MG Tablet PO ×2 (09:03→21:40)
[2018-12-27] MEDS: Allopurinol 100 MG Tablet PO (09:04)
[2018-12-27] MEDS: Tamsulosin HCl 0.4 MG Capsule PO (09:04)
[2018-12-27] MEDS: Gabapentin 300 MG Capsule PO ×2 (09:04→21:41)
[2018-12-27] MEDS: Furosemide 40 MG Tablet PO ×2 (09:05→17:41)
[2018-12-27] MEDS: levETIRAcetam 500 MG Tablet PO (09:05)
--- NOTE | 2018-12-27 10:51 | PN.CARD_ITS ---
Subjectve: Events noted. Telemetry showed no evidence of atrial fibrillation. On amiodarone drip. Sinus rhythm on the monitor. Echocardiogram was performed and showed significant decline in global left ventricular ejection fraction which is now in the range of 10%. 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 Objective: Vital Signs Temp Pulse Resp BP Pulse Ox 97.6 F L 84 16 145/95 H 99 12/27/18 09:00 12/27/18 10:10 12/27/18 09:00 12/27/18 09:00 12/27/18 09:00 Oxygen Flow Rate (L/min) 2.5 Oxygen Delivery Method Nasal Cannula Weight: 76.1 kg Body Mass Index (BMI) 25.1 Finger Stick Blood Glucose 95 Intake and Output for Last 24 Hours 12/25/18 12/26/18 12/27/18 23:59 23:59 23:59 Intake Total 1583.17 / 2079.87 972.17 / 972.17 Output Total 7000 / 7000 Balance -5416.83 / -4920.13 972.17 / 972.17 General: Awake, Alert, Oriented x 3 HEENT: PERRL, EOMI, Sclera Non Icteric Neck: Supple, Good ROM, No Lymph Node Enlargement Lungs: Clear to auscultation Cardiovascular: Regular Rhythm, Normal S1, Normal S2, No Murmurs, No Rubs, No Gallops Vascular: No Carotid Bruits, Normal Femoral Pulses, Normal Radial Pulses, Normal Dorsalis Pedal Pulse, Normal Posterior Tibial Pulses Abdomen: Bowel Sounds Present, Soft, Non Tender, No HSM, No Organomegaly Extremities: No Cyanosis, No Clubbing, No edema Neurological: No Focal Motor or Sensory Deficit 12/26/18 10:46: Troponin I 0.114 H 12/26/18 10:46: PT 17.3 H, INR 1.4, APTT 38.9 H 12/26/18 14:15: Troponin I 0.096 H 12/26/18 17:49: APTT 45.4 H 12/27/18 01:21: APTT 94.4 H* 12/27/18 07:04: WBC 5.6, RBC 3.47 L, Hgb 10.6 L, Hct 33.2 L, MCV 95.7 H, MCH 30.5, MCHC 31.9 L, Plt Count 119 L, MPV 10.8, Immature Gran % (Auto) 0.500, Neut % (Auto) 47.6, Lymph % (Auto) 34.2, [place] % (Auto) 14.3 H, Eos % (Auto) 2.5, Baso % (Auto) 0.9, Absolute Neuts (auto) 2.7, Nucleated RBC % 2.7 12/27/18 07:04: Sodium 136, Potassium 4.1, Chloride 100, Carbon Dioxide 25.0, Anion Gap 11, BUN 39 H, Creatinine 9.97 H*, Est GFR (MDRD) Af Amer 7 L, Est GFR (MDRD) Non-Af 6 L, BUN/Creatinine Ratio 3.9 L, Glucose 111 H, Calcium 7.0 L 12/27/18 07:04: APTT 139.7 H* Rhythm: EKG: This a.m., sinus rhythm, evidence of left bundle branch block, significant QTc prolongation over 600 ms ECHO: Estimated left ventricular ejection fraction in the range of 10% with probable non-compacted myocardium. Elevated pulmonary artery systolic pressure. Stress Test: Cardiac Cath: PCI: CT Surgery: Holter monitor: EPS: PPM: CXR: Chest CT Scan: Medical Necessity - Tobacco Use Smoking Status: Current every day smoker Tobacco Use: Cigarettes Assessment/Plan 1. Cardiac dysrhythmia/?paroxysmal atrial fibrillation with RVR So far, objective data demonstrate no clear-cut evidence of true paroxysmal atrial fibrillation/long runs. On amiodarone drip and heparin drip, telemetry demonstrates normal sinus rhythm. A consideration may be given for an extended monitoring, such as [employer] monitor or implantable loop recorder, to further determinate the cardiac dysrhythmia. On IV heparin now. I am not sure if we should start anticoagulation p.o., as there is no clear-cut evidence of underlying atrial fibrillation Due to significant QT interval prolongation, will stop amiodarone drip 2. Nonischemic cardiomyopathy This morning, the echocardiogram demonstrated substantial decrease in the left ventricular ejection fraction which is now in the range of 10%. 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 Down the road, EP evaluation for consideration of the defibrillator implant for primary prevention 3. Chronic systolic CHF Appears euvolemic by physical exam. On hemodialysis. Continuation of ongoing medical management. On Coreg, will start low-dose lisinopril. 4. End-stage renal disease, on hemodialysis. Code Visit Inpatient E&M: 86855 Subs Hosp L3
[2018-12-27 14:36] LABS: Partial Thromboplast Time 95.5 Seconds (24.1-36.2)
[2018-12-27] MEDS: HEPARIN/D5w 25,000 UNITS 25,000 UNITS/250 ML IV.SOLN. 5 UNITS IV (17:43)
[2018-12-27 20:10] LABS: Partial Thromboplast Time 65.1 Seconds (24.1-36.2)
[2018-12-27] MEDS: Atorvastatin Calcium 10 MG Tablet PO (21:40)
[2018-12-27] MEDS: MELATONIN 10 MG TABLET 5 MG PO (21:40)
[2018-12-28] VITALS (7 sets, daily range): BP systolic 107–120; BP diastolic 57–70; PULSE 83–106; RESP 18–20; TEMP 36.4–36.7; O2SAT 95–99
[2018-12-28 02:59] LABS: Anion Gap 11 (5-15); BUN 50 mg/dL (7-18); Chloride 99 mmol/L (98-107); EST Glomerular Filtration Rate 4 mL/min (>60); Est Glom Filt Rate - Afr Amer 5 mL/min (>60); Estimated Creatinine Clearance 6.11 ml/min; Glucose 117 mg/dL (74-106); Magnesium 2.2 mg/dL (1.6-2.6); Potassium 3.9 mmol/L (3.5-5.1); Sodium Level 136 mmol/L (136-145)
[2018-12-28 03:06] LABS: Absolute Lymphocyte Count 2.01 X10^3/uL (0.83-4.51); Absolute Neutrophil Count 1.4 X10^3/uL (2.0-7.7); Basophil# 0.06 X10^3/uL; Basophil% 1.4 % (0-1); Eosinophil# 0.26 X10^3/uL; Eosinophils% 5.9 % (0-5); Hematocrit 32.6 % (40-54); Hemoglobin 10.4 g/dL (13.0-16.5); Lymphocyte # 2.01 X10^3/ul (4.0); Lymphocyte % 45.5 % (19-41); Mean Corp Hgb Conc 31.9 g/dL (32-36); Mean Corpuscular Hgb 30.6 pg (27.0-32.0); Mean Corpuscular Volume 95.9 fL (80-94); Mean Platelet Vol. 11.5 fl (6.2-12.0); Monocyte# 0.64 X10^3/uL; Monocyte% 14.5 % (0-10); Neutrophil # 1.41 X10^3/uL (2.7-7.7); Neutrophil % 31.8 % (47-70); Platelet Count 112 K/mm3 (150-450); RBC Distribution Width CV 18.2 % (11.6-14.6); RBC Distribution Width SD 62.4 fl (35.1-43.9); White Blood Count 4.4 K/mm3 (4.4-11.0)
[2018-12-28 03:12] LABS: Partial Thromboplast Time 63.6 Seconds (24.1-36.2)
[2018-12-28 03:18] LABS: NRBC Flagged by Analyzer 1.6 % (0-5)
[2018-12-28] MEDS: Calcium Acetate 667 MG Capsule 1334 MG PO (08:12)
[2018-12-28] MEDS: Allopurinol 100 MG Tablet PO (08:12)
[2018-12-28] MEDS: Lisinopril 2.5 MG Tablet PO (10:07)
[2018-12-28] MEDS: Furosemide 40 MG Tablet PO (10:07)
[2018-12-28] MEDS: Gabapentin 300 MG Capsule PO (10:07)
[2018-12-28] MEDS: levETIRAcetam 500 MG Tablet PO (10:07)
[2018-12-28] MEDS: Carvedilol 12.5 MG Tablet PO (10:07)
[2018-12-28] MEDS: Tamsulosin HCl 0.4 MG Capsule PO (10:07)
--- NOTE | 2018-12-28 10:15 | PN.CARD_ITS ---
Subjectve: No new complaints. Telemetry has not demonstrated evidence of atrial fibrillation. Amiodarone was stopped yesterday due to significant QT prolongation. Was on IV heparin drip overnight. Objective: Vital Signs Temp Pulse Resp BP Pulse Ox 98.1 F 102 H 20 H 120/70 99 12/28/18 08:19 12/28/18 08:19 12/28/18 08:19 12/28/18 08:19 12/28/18 08:19 Oxygen Flow Rate (L/min) 2 Oxygen Delivery Method Nasal Cannula Weight: 76.3 kg Body Mass Index (BMI) 25.1 Finger Stick Blood Glucose 95 Intake and Output for Last 24 Hours 12/26/18 12/27/18 12/28/18 23:59 23:59 23:59 Intake Total 1583.17 / 2079.87 1836.25 / 1836.25 620 / 620 Output Total 7000 / 7000 0 / 0 Balance -5416.83 / -4920.13 1836.25 / 1836.25 620 / 620 General: Awake, Alert, Oriented x 3 HEENT: PERRL, EOMI, Sclera Non Icteric Neck: Supple, Good ROM, No Lymph Node Enlargement Lungs: Clear to auscultation Cardiovascular: Regular Rhythm, Normal S1, Normal S2, No Murmurs, No Rubs, No Gallops Vascular: No Carotid Bruits, Normal Femoral Pulses, Normal Radial Pulses, Normal Dorsalis Pedal Pulse, Normal Posterior Tibial Pulses Abdomen: Bowel Sounds Present, Soft, Non Tender, No HSM, No Organomegaly Extremities: No Cyanosis, No Clubbing, No edema Neurological: No Focal Motor or Sensory Deficit 12/27/18 13:54: APTT 95.5 H* 12/27/18 19:57: APTT 65.1 H 12/28/18 01:55: APTT 63.6 H 12/28/18 01:55: WBC 4.4, RBC 3.40 L, Hgb 10.4 L, Hct 32.6 L, MCV 95.9 H, MCH 30.6, MCHC 31.9 L, Plt Count 112 L, MPV 11.5, Immature Gran % (Auto) 0.900, Neut % (Auto) 31.8 L, Lymph % (Auto) 45.5 H, [place] % (Auto) 14.5 H, Eos % (Auto) 5.9 H , Baso % (Auto) 1.4 H, Absolute Neuts (auto) 1.4 L, Nucleated RBC % 1.6 12/28/18 01:55: Sodium 136, Potassium 3.9, Chloride 99, Carbon Dioxide 26.0, Anion Gap 11, BUN 50 H, Creatinine 12.60 H*, Est GFR (MDRD) Af Amer 5 L, Est GFR (MDRD) Non-Af 4 L, BUN/Creatinine Ratio 4.0 L, Glucose 117 H, Calcium 7.0 L, Magnesium 2.2 Rhythm: EKG: ECHO: Stress Test: Cardiac Cath: PCI: CT Surgery: Holter monitor: EPS: PPM: CXR: Chest CT Scan: Medical Necessity - Tobacco Use Smoking Status: Current every day smoker Tobacco Use: Cigarettes Assessment/Plan 1. Cardiac dysrhythmia/?paroxysmal atrial fibrillation with RVR No evidence of atrial fibrillation on overnight telemetry. At this point, would recommend extended monitoring, with an implantable loop recorder, to further characterize dysrhythmia, if present. Can discontinue IV heparin. 2. 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 The patient is on guideline recommended medical therapy Down the road, EP evaluation for consideration of the defibrillator implant for primary prevention 3. Chronic systolic CHF Appears euvolemic by physical exam. Fluid management by hemodialysis. Continuation of ongoing medical management. 4. End-stage renal disease, on hemodialysis. Outpatient follow-up with Dr. Kitchen Code Visit Inpatient E&M: [id number] [facility] [place] Hosp L2
--- NOTE | 2018-12-28 10:34 | DCINST_ITS ---
- Discharge Diagnoses Current Active Problems: Current Active and Chronic Problems Atrial fibrillation (Acute) You will use the following diet at home:: Cardiac, Renal (restricted protein/sodium) Your food should be the consistency of: Regular Discharge Activity: Return to Normal Activity Weight Bearing Status: Weight bearing as tolerated Call your doctor if you observe: Fever of 101 or Higher, Shortness of breath, Dizziness, Fainting spells, Swelling in the ankles, Chest pain, Increased palpitations (irregular heartbeat), Uncontrolled pain Allergies/Adverse Reactions: Allergies Penicillins Allergy (Verified 12/26/18 06:57) Unknown sulfamethoxazole [From Bactrim] Allergy (Verified 12/26/18 06:57) Swelling trimethoprim [From Bactrim] Allergy (Verified 12/26/18 06:57) Swelling Medications to take at Discharge Calcium Acetate [Phoslo Gel Cap] 1,334 mg PO TIDCM 03/08/14 Loperamide [Imodium] 2 - 4 mg PO Q6H PRN PRN 08/21/16 Allopurinol [Zyloprim] 100 mg PO DAILYCM 02/18/18 Tamsulosin HCl [Flomax] 0.4 mg PO DAILY 02/18/18 Hydroxyzine HCl 25 mg PO Q8H PRN PRN 04/14/18 Levetiracetam 1 tab PO DAILY 04/14/18 Simvastatin 20 mg PO QHS 04/14/18 Acetaminophen with Codeine [Acetaminophen-Cod #2 Tablet] 1 tab PO Q6H PRN PRN 11/05/18 Furosemide 40 mg PO BID 11/05/18 Melatonin 5 mg PO QHS 11/05/18 Nitroglycerin 0.4 mg SL PRN PRN 11/05/18 DiphenhydrAMINE [Benadryl] 75 mg PO TID PRN PRN 11/26/18 Acetaminophen [Tylenol] 650 mg PO Q8H PRN PRN #30 cap 12/03/18 Gabapentin [Neurontin] 300 mg PO BID 12/26/18 traMADol [Ultram] 50 mg PO Q8H PRN PRN 12/26/18 Carvedilol [Coreg (Beta Bree)] 12.5 mg PO BID #90 tab 12/28/18 Lisinopril [Zestril] 2.5 mg PO DAILY #30 tab 12/28/18 The following prescriptions were given: Carvedilol [Coreg (Beta Bree)] 12.5 mg PO BID #90 tab Transmission Status: [id number] Lisinopril [Zestril] 2.5 mg PO DAILY #30 tab Transmission Status: [id number] Orders to be completed after discharge: 30-Day Event Recorder [facility] Time Frame: 1 Day, Location: None Selected Primary Care Physician: Care Physician,No Primary [Primary Care Provider] - Please follow up with your Primary Care Physician in: 1 week. Test Results: Test results from this visit will be discussed in further detail at your follow- up appointment, if applicable. Please Follow Up With: Rasta Kitchen MD When: end of this week or early next week. Please Follow Up With: Filemon Spencer MD When: 2 week.
--- NOTE | 2018-12-28 11:51 | DS.PCM_ITS ---
Discharge Date and Diagnosis Date of Admission: 12/26/18 Date of Discharge: 12/28/18 - Primary Discharge Diagnosis #1 cardiac arrhythmia, questionable new onset paroxysmal A. fib. #2 indeterminate troponin. - Secondary Discharge Diagnosis Chronic Problems Hyperlipidemia (Chronic) Seizure disorder (Chronic) HTN (hypertension) (Chronic) Anemia of chronic disease (Chronic) Cardiomyopathy (Chronic) CHF (congestive heart failure) (Chronic) ESRD (end stage renal disease) on dialysis (Chronic) Hospital Course and Treatment Imaging Results: Clinical Impression(s) from Imaging Studies Chest X-Ray 12/26/18 07:01 IMPRESSION: Moderate cardiomegaly. Possible pulmonary hypertension. Electronically Signed: Andie Coelho, at 7:48 EDT Tel , Service support , Dr. Kitchen, cardiology. Dr. Rivera, nephrology. Operations: None Procedures: 2-D Echocardiogram, Dialysis, EKG Summary of Care Provided: Patient seen and examined on the day of discharge and appeared to be stable to be discharged home. He denies any significant complaints. He remained in sinus rhythm, rate is controlled. Other vital signs are stable. The patient is a 58 year old M patient was sent to the emergency department from the dialysis center for regular heartbeats and shortness of breath, found to have cardiac arrhythmia which initially thought to be due to new onset paroxysmal atrial fibrillation with RVR. Patient was admitted, was given IV Cardizem bolus but he remained with fast heart rate. Cardiology consulted and he was started on IV amiodarone drip as well as IV heparin for anticoagulation because he was at high risk for stroke. His serum potassium and magnesium were normal. TSH was normal as well. Upon revision of the EKG as well as telemetry, patient did have P waves and it was not clear if the patient has strong evidence of atrial fibrillation or flutter. His EKG does show left bundle branch block which is chronic. On repeat EKG, QT interval was prolonged for which IV amiodarone drip was discontinued by cardiology. Patient remained in sinus rhythm and heart rate has been controlled with increased dose of Coreg. 2D echocardiogram revealed ejection fraction of 10%, stage III diastolic dysfunction, severe global hypokinesis of the right ventricle, RVSP of more than 50. Patient is known to have nonischemic cardiomyopathy and his ejection fraction was 25% back on February,. There was no evidence of acute CHF at this time or volume overload. After discussion with cardiology, we decided to take patient off IV heparin drip. As there is no strong evidence of atrial fibrillation, cardiology recommended 30-day event monitor. Patient discharged home in a stable medical condition, discharged on Coreg 12.5 mg p.o. twice daily, continued on his previous home medications without any changes, order submitted for 30-day event monitor to be done tomorrow and patient was instructed to come back tomorrow for this procedure, highly recommended to follow-up with cardiology by the end of this week or the beginning of next week, follow-up with PCP in 2 weeks. Patient was instructed to resume his dialysis according to his previous schedule and follow-up with nephrology in 2 weeks. - Physical Exam General: Alert, Oriented x3, Cooperative, No apparent distress HEENT: Atraumatic, PERRLA, EOMI, Normocephalic Oral: Moist Mucosa, No Gingival or Mucosal Lesions/ Ulcerations Neck: Supple, No JVD, Negative Carotid Bruits, Trachea Midline, Thyroid Normal Size and Texture Lungs: Clear to auscultation, Normal air movement, No rhonchi, No wheeze, No rales, Diminished Cardiovascular: Regular rate, Regular Rhythm, Normal S1, Normal S2, PMI Normal Abdomen: Bowel Sounds Present, Soft, Non Tender, Non-Distended, No Hepato- splenomegaly Extremities: No clubbing, No cyanosis, No edema Skin: No rashes, No breakdown Lymphatic: No Cervical, Supraclavicular, or Inguinal Adenopathy Neurological: Cranial nerves II-XII grossly intact, Neuro grossly intact Psych/Mental Status: Normal Affect, Appropriate Vital Signs Temp Pulse Resp BP Pulse Ox 98.1 F 86 18 117/65 95 12/28/18 08:19 12/28/18 10:36 12/28/18 10:36 12/28/18 10:36 12/28/18 10:36 Oxygen Flow Rate (L/min) 2 Oxygen Delivery Method Room Air Weight: 168 lb 3.403 oz Body Mass Index (BMI) 25.1 Finger Stick Blood Glucose 95 Intake and Output for Last 24 Hours 12/26/18 12/27/18 12/28/18 23:59 23:59 23:59 Intake Total 1583.17 / 2079.87 1836.25 / 1836.25 658.5 / 658.5 Output Total 7000 / 7000 0 / 0 Balance -5416.83 / -4920.13 1836.25 / 1836.25 658.5 / 658.5 Laboratory Tests Past 24 Hrs 12/27/18 12/27/18 12/28/18 13:54 19:57 01:55 WBC RBC Hgb Hct MCV MCH MCHC RDW Std Deviation RDW Coeff of Dharmesh Plt Count MPV Immature Gran % (Auto) Neut % (Auto) Lymph % (Auto) [place] % (Auto) Eos % (Auto) Baso % (Auto) Absolute Neuts (auto) Absolute Lymphs (auto) Nucleated RBC % APTT 95.5 H* 65.1 H 63.6 H Sodium Potassium Chloride Carbon Dioxide Anion Gap BUN Creatinine Estim Creat Clear Calc Est GFR (MDRD) Af Amer Est GFR (MDRD) Non-Af BUN/Creatinine Ratio Glucose Calcium Magnesium 12/28/18 12/28/18 01:55 01:55 WBC 4.4 RBC 3.40 L Hgb 10.4 L Hct 32.6 L MCV 95.9 H MCH 30.6 MCHC 31.9 L RDW Std Deviation 62.4 H RDW Coeff of Dharmesh 18.2 H Plt Count 112 L MPV 11.5 Immature Gran % (Auto) 0.900 Neut % (Auto) 31.8 L Lymph % (Auto) 45.5 H [place] % (Auto) 14.5 H Eos % (Auto) 5.9 H Baso % (Auto) 1.4 H Absolute Neuts (auto) 1.4 L Absolute Lymphs (auto) 2.01 Nucleated RBC % 1.6 APTT Sodium 136 Potassium 3.9 Chloride 99 Carbon Dioxide 26.0 Anion Gap 11 BUN 50 H Creatinine 12.60 H* Estim Creat Clear Calc 6.11 Est GFR (MDRD) Af Amer 5 L Est GFR (MDRD) Non-Af 4 L BUN/Creatinine Ratio 4.0 L Glucose 117 H Calcium 7.0 L Magnesium 2.2 Discharge Activity: Return to Normal Activity Weight Bearing Status: Weight bearing as tolerated Call your doctor if you observe: Fever of 101 or Higher, Shortness of breath, Dizziness, Fainting spells, Swelling in the ankles, Chest pain, Increased palpitations (irregular heartbeat), Uncontrolled pain Home Medications: Medications to take at Discharge Calcium Acetate [Phoslo Gel Cap] 1,334 mg PO TIDCM 03/08/14 Loperamide [Imodium] 2 - 4 mg PO Q6H PRN PRN 08/21/16 Allopurinol [Zyloprim] 100 mg PO DAILYCM 02/18/18 Tamsulosin HCl [Flomax] 0.4 mg PO DAILY 02/18/18 Hydroxyzine HCl 25 mg PO Q8H PRN PRN 04/14/18 Levetiracetam 1 tab PO DAILY 04/14/18 Simvastatin 20 mg PO QHS 04/14/18 Acetaminophen with Codeine [Acetaminophen-Cod #2 Tablet] 1 tab PO Q6H PRN PRN 11/05/18 Furosemide 40 mg PO BID 11/05/18 Melatonin 5 mg PO QHS 11/05/18 Nitroglycerin 0.4 mg SL PRN PRN 11/05/18 DiphenhydrAMINE [Benadryl] 75 mg PO TID PRN PRN 11/26/18 Acetaminophen [Tylenol] 650 mg PO Q8H PRN PRN #30 cap 12/03/18 Gabapentin [Neurontin] 300 mg PO BID 12/26/18 traMADol [Ultram] 50 mg PO Q8H PRN PRN 12/26/18 Carvedilol [Coreg (Beta Bree)] 12.5 mg PO BID #90 tab 12/28/18 Lisinopril [Zestril] 2.5 mg PO DAILY #30 tab 12/28/18 Following Prescrptions Were Given to Patient: Carvedilol [Coreg (Beta Bree)] 12.5 mg PO BID #90 tab Transmission Status: [id number] Lisinopril [Zestril] 2.5 mg PO DAILY #30 tab Transmission Status: [id number] Other Amb Orders: 30-Day Event Recorder [[facility]] Time Frame: 1 Day, Location: None Selected Primary Care Physician: Care Physician,No Primary [Primary Care Provider] - Please follow up with your Primary Care Physician in: 1 week. Please Follow Up With: Rasta Kitchen MD When: end of this week or early next week. Please Follow Up With: Filemon Spencer MD When: 2 week. Disposition: Home Minutes spent on discharge:: 32 Patient Condition:: Stable Medical Necessity - Tobacco Use Smoking Status: Current every day smoker Tobacco Use: Cigarettes Meaningful Use Info Meaningful Use Diagnoses (Choose all that apply): None applicable Code Visit Inpatient E&M: 60818 Disch Hosp
--- NOTE | 2018-12-29 13:45 | CASEMGMT ---
ENRIQUE REIS DC PHONE CALL DC DATE: 12/28/18 DC Disposition: Home Diagnosis on Discharge: Questionable new onset paroxysmal A.Fib. LACE/STRATA:14 Intro role of CM to patient via phone. Reviewed medications,. Pt has picked up meds from pharmacy. Reviewed appointments. Pt has not made yet, plans to do tomorrow. States he does not need assist. Reviewed that Dr. Kitchen would like to see him end of week or early next week. Pt states he will contact office. No questions re: instructions. No further questions, no care improvement suggestions were given. Cece AZEVEDO RN ACM
== END 2018-12-28 11:45 | disposition home or self-care (01) | DRG 308 ==
LOC: ED 07:19 → PCU 08:47
PROVIDERS: Hospitalist; Admitting Provider Hospitalist; Emergency Provider Emergency Medicine; Visit Provider Hospitalist
DX: I48.0 Paroxysmal atrial fibrillation (principal); N18.6 End stage renal disease; I13.2 Hypertensive heart and chronic kidney disease with heart failure and with stage 5 chronic kidney disease, or end stage renal disease; I50.22 Chronic systolic (congestive) heart failure; I42.8 Other cardiomyopathies; I44.7 Left bundle-branch block, unspecified; D63.1 Anemia in chronic kidney disease; E78.5 Hyperlipidemia, unspecified; G40.909 Epilepsy, unspecified, not intractable, without status epilepticus; J44.9 Chronic obstructive pulmonary disease, unspecified; D69.6 Thrombocytopenia, unspecified; F17.210 Nicotine dependence, cigarettes, uncomplicated; Z99.2 Dependence on renal dialysis; Z79.899 Other long term (current) drug therapy
CPT/HCPCS: 36415; 71045; 80048; 83735; 84443; 84484; 85025; 85610; 85730; 90937; 93005; 93306; 97110; 97162; 97165; 99285; J7030; A4216; G0257; Q5106

== ENCOUNTER 2018-12-31 06:37 | Inpatient (IN) | payer MEDICARE, SELFPAY ==
[2018-12-26 09:13] VITALS: BMI 25.1
[2018-12-31] VITALS (11 sets, daily range): BP systolic 93–143; BP diastolic 70–96; PULSE 75–120; RESP 14–21; TEMP 36.4–36.8; O2SAT 94–100; BMI 31.8; BMI 25.6
--- NOTE | 2018-12-31 06:45 | EKG12_ITS ---
Test Reason : PALPS Blood Pressure : / mmHG Vent. Rate : 108 BPM Atrial Rate : 129 BPM P-R Int : 224 ms QRS Dur : 164 ms QT Int : 414 ms P-R-T Axes : 044 -07 135 degrees QTc Int : 554 ms Multifocal atrial tachycardia Left bundle branch block Abnormal ECG Confirmed by JOSEPH DINH, JENNIFER ([id number]), manager editorial LEVI ROSE ([id number]) on 01/02/2019 1:15:28 PM Referred By: Antonio Gonzalez Confirmed By:ANGEL RUIZ MD
--- NOTE | 2018-12-31 06:45 | RAD_ITS ---
STUDY: X-RAY CHEST REASON FOR EXAM: Male, 58 years old. Chest pain. Shortness of breath. TECHNIQUE: Single AP portable view of the chest. COMPARISON: 12/26/2018. FINDINGS: There is interstitial prominence in the lung donaldson, suggesting mild CHF. There is no demonstrated pleural abnormality. The heart is enlarged. Normal mediastinum and anselmo. Normal visualized pulmonary arteries. Normal visualized aortic arch and descending thoracic aorta. There are diffuse degenerative changes of the visualized thoracic spine. There is degenerative arthrosis of the left shoulder. There is no demonstrated abnormality of the visualized soft tissue structures of the upper abdomen. RAD/Chest 1 View (Portable) IMPRESSION: Cardiomegaly with mild CHF. Electronically Signed: Tray Theodore MD at 7:21 EDT , Service support ,
--- NOTE | 2018-12-31 06:48 | ED.VISSUMM ---
- ER Visit Summary Date of Service: 12/31/18 Chief Complaint: Shortness of breath, irregular heart rate History of Present Illness: The patient is a 58 M who presents with shortness of breath and an irregular heart rate. Started this morning while he was at dialysis. They did not start his run today when he started developing the symptoms. He is feeling any irregularity of his heart beat. He feels a little bit short of breath with this. He denies any chest pain. No fevers or any other recent illnesses. He was admitted to the hospital last week for questionable atrial fibrillation. Cardiology thought this was more of a sinus rhythm with ectopy or an ectopic atrial rhythm. They sent home home with Coreg 12.5 mg twice daily and he has been compliant with this. Physical Examination: Vital signs reviewed. HEENT exam unremarkable. Heart is irregular with no murmurs. Lungs are clear to auscultation bilaterally. Abdomen soft nontender. Extremities have no pain or edema. His fistula has a palpable thrill in the right upper extremity. Neurologic exam is normal. Test Results: EKG was a sinus rhythm with a rate of 108. He has a left bundle branch block. It is a sinus arrhythmia. No significant ischemic changes. Emergency Department Course and Treatment: Due to the patient's dialysis history, I will repeat his electrolytes and cardiac enzymes. Chest x-ray will also be performed. He will be signed out to the oncoming physician for further disposition Treatment Plan: [] Disposition: Pending Impression: Shortness of breath, palpitations This note was generated with [employer] dictation software. It may contain incorrect words, spelling, and punctuation that were not noted in review of the chart prior to signing <Sumanth Newton - Last Filed: 12/31/18 06:48> - ER Visit Summary Patient signed out to me. Labs show mild hyperkalemia at 6.0. His EKG appears to show a supraventricular dysrhythmia with a pre-existing left bundle branch block. There are at least 2 different P waves. It is difficult to tell if he is having runs of ectopic atrial tachycardia or something else, or if he is at baseline tachycardic and having pauses. I discussed with Dr. Kitchen who looked at the EKG, and recommends an EP cardiology consultation. We do not have that at this hospital. Since his potassium 6.0 and he needs dialyzed, that can be done here, so unfortunately he requires admission in order to have dialysis performed. I attempted to have this done in the ER so that we could reevaluate him, and then disposition him as indicated afterwards, as fixing his hyperkalemia may improve his dysrhythmia, or change it altogether. He is clinically stable but his blood pressure is borderline at 93/74. Given that and his ejection fraction of 10%, I think he is better served getting dialyzed in the hospital then as an outpatient at this particular time. Chest x-ray showed CHF, he is doing well even with lying down on his side, but is still tachycardic and having this dysrhythmia. Dr. Kitchen feels amiodarone is probably the best drug for him given his poor ejection fraction and his renal failure, however he was just taken off of that because of prolonged QT issues. He also needs a defibrillator which he does not have yet, and as an outpatient they were considering a loop recorder. Furthermore, he was discharged on Coreg 12.5 mg twice daily, but the patient states on the bottle it was confusing and making it look like he should only take it once a day so he was taking it every morning. He has last taken at 24 hours ago, and I am not giving it to him here right now because his blood pressure is low and he has not been dialyzed yet. Discussed with Dr. ayala about all of this. Impression: Supraventricular dysrhythmia Acute on chronic congestive heart failure Hyperkalemia Chronic renal failure on dialysis This note was generated with [employer] dictation software. It may contain incorrect words, spelling, and punctuation that were not noted in review of the chart prior to signing <Georges Warner - Last Filed: 12/31/18 10:19> ED Disposition <Sumanth Newton - Last Filed: 12/31/18 06:48> <Georges Warner - Last Filed: 12/31/18 10:19> - Plan for ED Patient: Disposition: Acute [facility] Diagnosis: Supraventricular dysrhythmia, Acute on chronic congestive heart failure, Hyperkalemia, CRF (chronic renal failure) Referrals: Care Physician,No Primary [Primary Care Provider] -
[2018-12-31 07:19] LABS: Absolute Lymphocyte Count 1.71 X10^3/uL (0.83-4.51); Absolute Neutrophil Count 2.4 X10^3/uL (2.0-7.7); Basophil# 0.05 X10^3/uL; Eosinophil# 0.14 X10^3/uL; Eosinophils% 2.7 % (0-5); Hematocrit 34.1 % (40-54); Hemoglobin 10.9 g/dL (13.0-16.5); Lymphocyte # 1.71 X10^3/ul (4.0); Lymphocyte % 33.3 % (19-41); Mean Corpuscular Hgb 30.4 pg (27.0-32.0); Mean Corpuscular Volume 95.3 fL (80-94); Mean Platelet Vol. 11.5 fl (6.2-12.0); Monocyte# 0.77 X10^3/uL; NRBC Flagged by Analyzer 0 % (0-5); Neutrophil # 2.44 X10^3/uL (2.7-7.7); Neutrophil % 47.4 % (47-70); Platelet Count 105 K/mm3 (150-450); RBC Distribution Width SD 62.6 fl (35.1-43.9); Red Blood Count 3.58 M/mm3 (4.6-6.2); White Blood Count 5.1 K/mm3 (4.4-11.0)
[2018-12-31 07:47] LABS: Anion Gap 6 (5-15); BUN 50 mg/dL (7-18); BUN/Creat Ratio 4.3 RATIO (10-20); Calcium,Total 7.5 mg/dL (8.5-10.1); Chloride 103 mmol/L (98-107); EST Glomerular Filtration Rate 5 mL/min (>60); Est Glom Filt Rate - Afr Amer 6 mL/min (>60); Estimated Creatinine Clearance 6.92 ml/min; Glucose 112 mg/dL (74-106); Sodium Level 139 mmol/L (136-145)
--- NOTE | 2018-12-31 09:21 | NURSING ---
CALLED [facility]. TRANSFER LINE, MANUEL, TALKED TO DR HARDY FAXED FACESHEET
--- NOTE | 2018-12-31 09:37 | NURSING ---
DR JON HARDY
--- NOTE | 2018-12-31 09:44 | NURSING ---
PCU KITTOE OBS HYPERKALEMIA, CRF, CHF, SUPREAVENTRICULAR DYSRRHYTHMIA
--- NOTE | 2018-12-31 09:51 | PCM.HP.STD ---
Problem List (1) Arrhythmia Status: Acute (2) Atrial fibrillation Status: Chronic Qualifiers: Atrial fibrillation type: paroxysmal Qualified Code(s): I48.0 - Paroxysmal atrial fibrillation (3) Anemia of chronic disease Status: Chronic (4) CHF (congestive heart failure) Status: Chronic Qualifiers: Heart failure type: systolic Heart failure chronicity: chronic Qualified Code(s): I50.22 - Chronic systolic (congestive) heart failure (5) Cardiomyopathy Status: Chronic Qualifiers: Cardiomyopathy type: unspecified Qualified Code(s): I42.9 - Cardiomyopathy, unspecified (6) ESRD (end stage renal disease) on dialysis Status: Chronic (7) HTN (hypertension) Status: Chronic Qualifiers: (8) Hyperlipidemia Status: Chronic Qualifiers: (9) Seizure disorder Status: Chronic History of Present Illness Date of Admission: 12/31/18 Chief Complaint: Irregular heart rate The patient is a 58 year old M with multiple comorbidities including cardiomyopathy with an ejection fraction of 10%, end-stage renal disease on hemodialysis who was sent from his dialysis chair to the ED with irregular heartbeat. Per patient had a similar episode 5 days prior to his presentation where he was thinking of his dialysis chair after he was noticed his heart was fluttering. In the ED EKG demonstrated supraventricular tachycardia. Patient was also found to have potassium of 6 subsequently admitted to monitored bed for further management Past Medical History Past Medical History (Chronic Problems): Chronic Problems Atrial fibrillation (Chronic) Acute on chronic congestive heart failure (Chronic) CRF (chronic renal failure) (Chronic) Hyperlipidemia (Chronic) Seizure disorder (Chronic) HTN (hypertension) (Chronic) Anemia of chronic disease (Chronic) Cardiomyopathy (Chronic) CHF (congestive heart failure) (Chronic) ESRD (end stage renal disease) on dialysis (Chronic) Allergies Penicillins Allergy (Verified 12/26/18 06:57) Unknown sulfamethoxazole [From Bactrim] Allergy (Verified 12/26/18 06:57) Swelling trimethoprim [From Bactrim] Allergy (Verified 12/26/18 06:57) Swelling Home Medications: Ambulatory Orders Medication Instructions Recorded Calcium Acetate [Phoslo Gel Cap] 1,334 mg PO TIDCM 03/08/14 Loperamide [Imodium] 2 - 4 mg PO Q6H PRN PRN 08/21/16 Allopurinol [Zyloprim] 100 mg PO DAILYCM 02/18/18 Tamsulosin HCl [Flomax] 0.4 mg PO DAILY 02/18/18 Hydroxyzine HCl 25 mg PO Q8H PRN PRN 04/14/18 Levetiracetam 1 tab PO DAILY 04/14/18 Simvastatin 20 mg PO QHS 04/14/18 Acetaminophen with Codeine 1 tab PO Q6H PRN PRN 11/05/18 [Acetaminophen-Cod #2 Tablet] Furosemide 40 mg PO BID 11/05/18 Melatonin 5 mg PO QHS 11/05/18 Nitroglycerin 0.4 mg SL PRN PRN 11/05/18 DiphenhydrAMINE [Benadryl] 75 mg PO TID PRN PRN 11/26/18 Acetaminophen [Tylenol] 650 mg PO Q8H PRN PRN #30 cap 12/03/18 Gabapentin [Neurontin] 300 mg PO BID 12/26/18 traMADol [Ultram] 50 mg PO Q8H PRN PRN 12/26/18 Carvedilol [Coreg (Beta Bree)] 12.5 mg PO BID #90 tab 12/28/18 Lisinopril [Zestril] 2.5 mg PO DAILY #30 tab 12/28/18 Surgical History: - - prosthetic right eye, Rt upper arm AVF, right adrenal gland removal for unknown reason Psychiatric History: No pertinent psych hx Smoking Status: Current every day smoker - *Family History Maternal History Items: Diabetes Paternal History Items: Heart Disease Review of Systems Constitutional: Denies: Anorexia, Chills, Fever, Night Sweats, Weight Change HEENT: Denies: Head Aches, Sinus Congestion, Sinus Drainage Cardiovascular: Reports: Palpitations. Denies: Chest Pain, Orthopnea, Paroxysmal Noc. Dyspnea Respiratory: Denies: Cough, Shortness of breath at rest, Shortness of breath upon exertion, Sputum production Gastrointestinal: Denies: Abdominal Pain, Hematemesis, Hematochezia, Nausea, Melena, Vomiting Genitourinary: Denies: Dysuria, Frequency, Hematuria, Urgency Musculoskeletal: Denies: Joint Pain, Joint Tenderness Skin: Denies: Rash Neurological: Denies: Focal weakness, Numbness, Tingling Psychiatric: Denies: Homicidal Ideations, Suicidal Ideations Hematologic/ Lymphatic: Denies: Easy Bruising, Easy Bleeding VTE Information - Inpt Only VTE Present on Admission: No VTE Mechan Device Prophylaxis: Knee High FRANCISOC Hose VTE Pharm Prophylaxis ordered?: Yes Patient Problems: Active and Suspected Problems Arrhythmia (Acute) Supraventricular dysrhythmia (Acute) Hyperkalemia (Acute) Objective: GENERAL: cooperative HEENT: Atraumatic; EYES; Anicteric, Normal Conjunctiva NECK; supple, normal thyroid, RESPIRATORY: Diminished to auscultation CARDIOVASCULAR: Regular S1 S2, GI: soft, normoactive bowel sounds, : No Renal angle tenderness; EXTREMITIES: No edema, no clubbing, MUSCULOSKELETAL: no muscle waisting NEURO: Awake; no lateralizing signs. SKIN: No Rash PSYCH; Flat affect - Physical Exam Vitals/I&O's: Vital Signs Temp Pulse Resp BP Pulse Ox 97.5 F L 100 18 93/74 100 12/31/18 06:39 12/31/18 08:41 12/31/18 08:41 12/31/18 08:41 12/31/18 08:41 Oxygen Delivery Method Room Air Weight: 97.7 kg Body Mass Index (BMI) 31.8 Finger Stick Blood Glucose 95 Laboratory Results 12/31/18 07:12: WBC 5.1, RBC 3.58 L, Hgb 10.9 L, Hct 34.1 L, MCV 95.3 H, MCH 30.4, MCHC 32.0, RDW Std Deviation 62.6 H, RDW Coeff of Dharmesh 18.0 H, Plt Count 105 L, MPV 11.5, Immature Gran % (Auto) 0.600, Neut % (Auto) 47.4, Lymph % (Auto) 33.3, [place] % (Auto) 15.0 H, Eos % (Auto) 2.7, Baso % (Auto) 1.0, Absolute Neuts (auto) 2.4, Absolute Lymphs (auto) 1.71, Nucleated RBC % 0 12/31/18 07:12: Sodium 139, Potassium 6.0 H*, Chloride 103, Carbon Dioxide 30.0, Anion Gap 6, BUN 50 H, Creatinine 11.50 H*, Estim Creat Clear Calc 6.92, Est GFR (MDRD) Af Amer 6 L, Est GFR (MDRD) Non-Af 5 L, BUN/Creatinine Ratio 4.3 L, Glucose 112 H, Calcium 7.5 L, Troponin I 0.033 Assessment/Plan All Active Problems Arrhythmia (Acute) Supraventricular dysrhythmia (Acute) Hyperkalemia (Acute) Patient is a 58-year-old gentleman with multiple comorbidities sent from dialysis with palpitations. EKG demonstrated supraventricular tachycardia 1. Cardiac arrhythmia ~EKG on admission demonstrated blood tachycardia. Patient had apparently been managed with amiodarone during his previous admission however it was found that patient had prolonged QT amiodarone was therefore discontinued. Patient was also noted to have impaired kidney function as well as hyperkalemia on admission subsequently admitted to a monitored bed for dialysis with consultation placed to cardiology 2. 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 Olivares for emergency dialysis 3. Hyperkalemia ~secondary to #2 do suspect it may be contributing to #1 plan is for patient undergo emergency dialysis 4. Chronic systolic heart failure ~ due to nonischemic cardiomyopathy with an ejection fraction of 10% based on an echo obtained on 12/27/2018. Cardiology consultation from patient previous visit recommended referral for possible AICD placement down the road 5. Seizure disorder ~patient is on Keppra did continue 6. Essential hypertension ~patient blood pressure was controlled on admission do plan to restart home meds 7. Dyslipidemia ~patient is on statin therapy 8. Anemia ~secondary to anemia of chronic disorder/end-stage renal disease monitoring H&H no indication for blood transition at this point 10. DVT prophylaxis ~SC heparin Advance planning; did discuss with the patient regarding advanced directives as well as CODE STATUS. Did explain the various scenarios involved ( FULL CODE, DNR CCA, DNR CCA with no intubation, and DNR CC and what each meant) patient wishes to remain full code. Order was placed. Time spent on discussion 18 minutes. Code Visit Inpatient E&M: 69027 Subs Hosp L3 Procedures: 18717 Advncd Care Plan 30 Min
--- NOTE | 2018-12-31 10:11 | NURSING ---
NEPHOLOGIST IN ROOM
--- NOTE | 2018-12-31 11:12 | CASEMGMT ---
RN CM Readmission Note Previous Admission: 12/26-12/28/18 DC Diagnosis: Cardiac arrhythmia, ?onset paroxysmal A.fib DC Disposition: Home DC Call- completed. Pt had no concerns @ time of call. Noted, pt has f/u appts made but not until January. Pt had prescriptions and states was taking appropriately. Current Admission: Presentation: SVT, hx of ESRF-hemodialysis Intro role of CM and purpose of RN CM assessment to patient in room. Pt is awake, alert and able to participate in assessment. Demographics, PCP and Pharmacy verified. Pt states he has been doing well @ home, is independent and does not have concerns re: returning home. Pt states he is compliant with f/u with physicians and dialysis. PCP: Dr. Cabral. New patient appt on January 14 @ 1620 (entered in DC appt list) Specialists: Dr. Spencer, nephrology, Dr. Kitchen, cardiology- appt on Jan 13 @ 3 pm with Brandin Kay NP (entered in DC appt list) Preferred Pharmacy: [facility] [place] [facility] Prescription Benefit: yes. Pt states no difficulty having prescriptions covered. LNOK: Rasta Peterson, Brother Dialysis: [facility] [place]. MWF 6 am. Updated pt is here @ [facility]. Living Arrangements: Lives alone in apartment, elevator to his third floor. Ex address is same as pt, but pt states she does not live there. Pt would like her number left on his demographics as contact. Transportation: Pt does not drive. [facility] provides transportation to hemodialysis and to Dr. Spencer appts. He utilizes [employer] and his insurance for other transportation needs. DME: none per pt HHC: none Patient DC goals: Return home on dc DC PLAN: Anticipate home on discharge. Pt states no dc concerns @ this time. RN CM let pt know to contact if needs or concerns arise. Cece AZEVEDO RN ACM
[2018-12-31] MEDS: Heparin Injection (Vial) 5,000 UNIT/ML VIAL 5000 UNIT SC ×2 (13:08→23:13)
[2018-12-31] MEDS: guaiFENesin 10 ML UDC (200MG/10ML) 20 ML PO ×2 (13:12→17:55)
[2018-12-31] MEDS: Heparin 10,000 UNITS/10 ML Vial 2000 UNITS IV (16:15)
[2018-12-31] MEDS: Calcium Acetate 667 MG Capsule 1334 MG PO (17:57)
[2018-12-31] MEDS: DiphenhydrAMINE 25 MG Capsule 75 MG PO ×2 (17:59→23:12)
--- NOTE | 2018-12-31 18:51 | DIALYSIS ---
Hemodialysis x 3.5 hours completed. Pt tolerated tx well. Fluid balance -3000ml. [place] pulled. Hemostasis achieved. Dressing applied. Report given to ENRIQUE Rivera. Pt stable
[2018-12-31] MEDS: Allopurinol 100 MG Tablet PO (19:24)
[2018-12-31] MEDS: hydrOXYzine PAM 25 MG Capsule PO (20:04)
[2018-12-31] MEDS: proCHLORPERazine 25 MG Suppos. RC (21:05)
[2018-12-31] MEDS: Furosemide 40 MG Tablet PO (23:12)
[2018-12-31] MEDS: Atorvastatin Calcium 10 MG Tablet PO (23:13)
[2018-12-31] MEDS: Carvedilol 12.5 MG Tablet PO (23:13)
[2019-01-01] VITALS (12 sets, daily range): BP systolic 97–107; BP diastolic 49–81; PULSE 97–114; RESP 16–20; TEMP 36.8–37.2; O2SAT 94–99
[2019-01-01 06:17] LABS: Absolute Neutrophil Count 2.7 X10^3/uL (2.0-7.7); Basophil# 0.03 X10^3/uL; Basophil% 0.6 % (0-1); Eosinophils% 2.1 % (0-5); Hematocrit 36.2 % (40-54); Hemoglobin 11.3 g/dL (13.0-16.5); Lymphocyte % 29.1 % (19-41); Mean Corp Hgb Conc 31.2 g/dL (32-36); Mean Corpuscular Hgb 29.9 pg (27.0-32.0); Mean Corpuscular Volume 95.8 fL (80-94); Mean Platelet Vol. 12.2 fl (6.2-12.0); Monocyte% 12.5 % (0-10); NRBC Flagged by Analyzer 0 % (0-5); Neutrophil # 2.65 X10^3/uL (2.7-7.7); Neutrophil % 55.1 % (47-70); Platelet Count 104 K/mm3 (150-450); RBC Distribution Width CV 17.7 % (11.6-14.6); RBC Distribution Width SD 61.6 fl (35.1-43.9); Red Blood Count 3.78 M/mm3 (4.6-6.2); White Blood Count 4.8 K/mm3 (4.4-11.0)
[2019-01-01 06:48] LABS: Anion Gap 7 (5-15); BUN 27 mg/dL (7-18); BUN/Creat Ratio 3.4 RATIO (10-20); Chloride 99 mmol/L (98-107); Creatinine, Serum 8.05 mg/dL (0.70-1.30); EST Glomerular Filtration Rate 7 mL/min (>60); Est Glom Filt Rate - Afr Amer 9 mL/min (>60); Estimated Creatinine Clearance 9.88 ml/min; Glucose 97 mg/dL (74-106); Potassium 5.3 mmol/L (3.5-5.1); Sodium Level 134 mmol/L (136-145)
[2019-01-01] MEDS: Calcium Acetate 667 MG Capsule 1334 MG PO ×2 (08:27→13:16)
[2019-01-01] MEDS: Allopurinol 100 MG Tablet PO (08:27)
--- NOTE | 2019-01-01 08:58 | CON.PCM_ITS ---
<Brandin Kay - Last Filed: 01/01/19 09:51> Problem List (1) Supraventricular dysrhythmia Status: Chronic (2) Acute on chronic congestive heart failure Status: Chronic Qualifiers: Heart failure type: combined systolic and diastolic Qualified Code(s): I50.43 - Acute on chronic combined systolic (congestive) and diastolic (congestive) heart failure (3) Hyperkalemia Status: Acute (4) Hyperlipidemia Status: Chronic Qualifiers: Hyperlipidemia type: unspecified Qualified Code(s): E78.5 - Hyperlipidemia, unspecified (5) HTN (hypertension) Status: Chronic Qualifiers: Hypertension type: essential hypertension Qualified Code(s): I10 - Essential (primary) hypertension (6) Cardiomyopathy Status: Chronic Qualifiers: Cardiomyopathy type: dilated Qualified Code(s): I42.0 - Dilated cardiomyopathy Reason for Consult Date of Consultation: 01/01/19 Reason for Consultation: Acute on chronic congestive heart failure, supraventricular dysrhythmia History of Present Illness: The patient is a 58 year old M who has a past medical history of known coronary artery disease related cardiomyopathy, chronic systolic congestive heart failure with ejection fraction of 10% noted in December 2018, hypertension, hyperlipidemia, end-stage renal disease with chronic hemodialysis, and paroxysmal atrial fibrillation versus ectopic atrial arrhythmia with previous amiodarone therapy resulting in QT prolongation. Patient was admitted and evaluated at [facility] earlier this month for irregular heart rhythm noted during dialysis. EKG showed sinus tachycardia versus ectopic atrial rhythm with PACs with an underlying left bundle branch block pattern. His Coreg was increased. He was started amiodarone therapy, however this was discontinued due to significant QT prolongation. At that time, is was recommended he consider an implantable loop recorder to further evaluate dysrhythmia and electrophysiology evaluation for primary prevention ICD on an outpatient basis. He returned to [facility] Emergency Department on 12/31/2018 for irregular heart rhythm and shortness of breath noted prior to starting dialysis. His EKG in the Emergency Department showed sinus rhythm at a rate of 108 bpm with underlying left bundle branch block. His chest x-ray revealed mild CHF. He did not undergo dialysis due to symptoms of shortness of breath. His potassium in the Emergency Department was noted to be 6. He was admitted for dialysis and further evaluation. Cardiology was consulted for further input in regards to rhythm and rate management. Past Medical History Allergies/Adverse Reactions: Allergies Penicillins Allergy (Verified 12/26/18 06:57) Unknown sulfamethoxazole [From Bactrim] Allergy (Verified 12/26/18 06:57) Swelling trimethoprim [From Bactrim] Allergy (Verified 12/26/18 06:57) Swelling Home Medications: Ambulatory Orders Medication Instructions Recorded Calcium Acetate [Phoslo Gel Cap] 1,334 mg PO TIDCM 03/08/14 Loperamide [Imodium] 2 - 4 mg PO Q6H PRN PRN 08/21/16 Allopurinol [Zyloprim] 100 mg PO DAILYCM 02/18/18 Tamsulosin HCl [Flomax] 0.4 mg PO DAILY 02/18/18 Hydroxyzine HCl 25 mg PO Q8H PRN PRN 04/14/18 Levetiracetam 1 tab PO DAILY 04/14/18 Simvastatin 20 mg PO QHS 04/14/18 Furosemide 40 mg PO BID 11/05/18 Melatonin 5 mg PO QHS 11/05/18 Nitroglycerin 0.4 mg SL PRN PRN 11/05/18 DiphenhydrAMINE [Benadryl] 75 mg PO TID PRN PRN 11/26/18 Acetaminophen [Tylenol] 650 mg PO Q8H PRN PRN #30 cap 12/03/18 traMADol [Ultram] 50 mg PO Q8H PRN PRN 12/26/18 Carvedilol [Coreg (Beta Bree)] 12.5 mg PO BID 12/31/18 Lisinopril [Zestril] 2.5 mg PO DAILY 12/31/18 Past Medical History (Chronic Problems): Chronic Problems Atrial fibrillation (Chronic) Supraventricular dysrhythmia (Chronic) Acute on chronic congestive heart failure (Chronic) CRF (chronic renal failure) (Chronic) Hyperlipidemia (Chronic) Seizure disorder (Chronic) HTN (hypertension) (Chronic) Anemia of chronic disease (Chronic) Cardiomyopathy (Chronic) CHF (congestive heart failure) (Chronic) ESRD (end stage renal disease) on dialysis (Chronic) Surgical History: - - prosthetic right eye, Rt upper arm AVF, right adrenal gland removal for unknown reason Psychiatric History: No pertinent psych hx - *Family History Maternal History Items: Diabetes Paternal History Items: Heart Disease Smoking Status: Current every day smoker Review of Systems - Review of Systems General: Reports: Malaise, Weakness. Denies: Fever, Fatigue, Chills HEENT: Denies: Vision Change Cardiovascular: Reports: Shortness of Breath, Shortness of Breath at Rest, Orthopnea. Denies: Chest Discomfort, Chest Discomfort at Rest, Chest Discomfort with Exertion, Chest Pressure, Chest Tightness, Chest Heaviness, Shortness of Breath with Exertion, PND, Peripheral Edema, Palpitations, Lightheadedness, Dizziness, Near Syncope Respiratory: Denies: Cough Neurological: Denies: Dizziness Subjectve: Patient seen and evaluated. He acknowledges continual shortness of breath. This is slightly improved since admission. He denies any chest pain, lightheadedness, dizziness, lower extremity edema, or orthopnea. Objective: Vital Signs Temp Pulse Resp BP Pulse Ox 99.0 F 105 H 18 105/80 94 01/01/19 05:47 01/01/19 05:47 01/01/19 05:47 01/01/19 05:47 01/01/19 07:40 Oxygen Flow Rate (L/min) 2 Oxygen Delivery Method Room Air Weight: 173 lb 8.061 oz Body Mass Index (BMI) 25.6 Finger Stick Blood Glucose 95 Intake and Output for Last 24 Hours 12/30/18 12/31/18 01/01/19 23:59 23:59 23:59 Intake Total 360 / 360 120 / 120 Output Total 3100 / 3100 Balance -2740 / -2740 120 / 120 General: Healthy Appearing, Awake, Alert, Oriented x 3, Lethargic HEENT: Atraumatic Oral: Moist Mucosa Neck: Positive JVD Lungs: Diminished Lucho Bases Cardiovascular: Regular Rhythm, Premature Ectopic Beats, Normal S1, Normal S2, No Rubs, No Gallops Murmur Murmur: Grade 2/6, LLSB Vascular: No Carotid Bruits Abdomen: Soft Extremities: No Cyanosis, No Clubbing, No edema, Normal Capillary Refill Neurological: No Focal Motor or Sensory Deficit Psych/Mental Status: Appropriate, Normal Affect 01/01/19 05:45: WBC 4.8, RBC 3.78 L, Hgb 11.3 L, Hct 36.2 L, MCV 95.8 H, MCH 29.9, MCHC 31.2 L, Plt Count 104 L, MPV 12.2 H, Immature Gran % (Auto) 0.600, Neut % (Auto) 55.1, Lymph % (Auto) 29.1, Dade % (Auto) 12.5 H, Eos % (Auto) 2.1, Baso % (Auto) 0.6, Absolute Neuts (auto) 2.7, Nucleated RBC % 0 01/01/19 05:45: Sodium 134 L, Potassium 5.3 H, Chloride 99, Carbon Dioxide 28.0, Anion Gap 7, BUN 27 H, Creatinine 8.05 H*, Est GFR (MDRD) Af Amer 9 L, Est GFR (MDRD) Non-Af 7 L, BUN/Creatinine Ratio 3.4 L, Glucose 97, Calcium 7.0 L Rhythm: EKG: ECHO: 12/27/2018 Interpretation summary Estimate ejection fraction is 10%. Stage III diastolic dysfunction. Possible non-compacted myocardium/extensive apical trabeculations. There is severe global hypokinesis of the left ventricle. Severe global right ventricular systolic dysfunction. Left atrium is mildly enlarged. Moderate (2+) tricuspid valve insufficiency. Right ventricular systolic pressure estimated greater than 50 mmHg. Stress Test: Stress Test Report Date: 02/18/2018 Procedure: Pharmacologic stress nuclear imaging study Indications: Chest pain; shortness of breath; cardiomyopathy Consent: Per the patient Procedure: The patient underwent pharmacologic (Regadenoson) evaluation with a peak heart rate of 103 beats per minute (63 predicted maximal heart rate) and a peak blood pressure of 108/76 mmHg. The baseline ECG demonstrated normal sinus rhythm; left bundle branch block pattern. The peak pharmacologic ECG demonstrated continued left bundle branch block pattern. [There were no cardiac dysrhythmias pretest, during pharmacologic infusion, or recovery]. [There was no complaint of chest discomfort during pharmacologic infusion or recovery]. The examination was discontinued secondary to completion of protocol. Impression: 1. Pharmacologic (Regadenoson) evaluation 2. Peak pharmacologic ECG with continued left bundle branch block pattern and considered indeterminant secondary to the underlying left bundle branch block pattern. 3. [There were no cardiac dysrhythmias pretest, during pharmacologic infusion, or recovery]. 4. Nuclear images pending Myocardial perfusion imaging study: Technique: The patient was injected with 10.6 millicuries of technetium 99m Cardiolite and subsequently rest SPECT Cardiolite nuclear imaging was obtained in the horizontal long, vertical long, and short axis views. The patient underwent pharmacologic (Regadenoson) evaluation with a peak heart rate of 103 beats per minute (63 % percent predicted maximal heart rate) and a peak blood pressure of 108/76 mmHg. The patient was injected with 32.1 millicuries of technetium 99m Cardiolite and subsequently stress SPECT Cardiolite nuclear imaging was obtained in the horizontal long, vertical long, and short axis views. A gated Cardiolite study at peak stress was obtained. Interpretation: Rest and stress SPECT Cardiolite nuclear imaging status post realignment, normalization, and attenuation correction demonstrate an area of diminished tracer uptake near the apical segments, however, status post stress there is notation of diminished tracer uptake in the mid to distal anterior segments/anterior apical segments. There is diminished end-systolic thickening and brightening. The gated Cardiolite study demonstrates diminished myocardial thickening and end were wall motion. The reported LVEF is 27 %. Impression: 1. Rest and stress SPECT Cardiolite nuclear imaging demonstrate myocardial perfusion changes appearing compatible with an element of physiologic apical thinning and appearing compatible with an area of stress-induced myocardial ischemia in portions of the mid to distal anterior and anterior apical segments. 2. The gated Cardiolite study reports an LVEF of 27%. Cardiac Cath: 02/18/2018 CONCLUSIONS Elevated Left Ventricular End Diastolic Pressure Normal coronary arteries RECOMMENDATIONS Medical therapy CORONARY ANGIOGRAPHY DOMINANCE: Left Dominant LEFT HEART ASSESSMENT Left Ventricular Ejection Fraction: Not assessed Elevated Left Ventricular End Diastolic Pressure LVEDP: 16 mmHg LEFT MAIN: Angiographically normal LEFT ANTERIOR DESCENDING ARTERY: Angiographically normal CIRCUMFLEX ARTERY: Angiographically normal RIGHT CORONARY ARTERY: Angiographically normal PCI: CT Surgery: Holter monitor: EPS: PPM: CXR: Chest CT Scan: Assessment/Plan 1. Cardiac dysrhythmia/paroxysmal atrial fibrillation with RVR Patient's EKG appears to be sinus rhythm with intermittent atrial ectopic dysrhythmia with PACs. Intermittent paroxysmal atrial fibrillation cannot be excluded. He does have underlying left bundle branch block. He is currently on Coreg 12.5 g p.o. twice daily and heparin subcutaneous injection. His heart rate remains slightly elevated ranging from high 90s to mid 110s. His blood pressure remains low with systolics in the low 100s. At this time, given his vital signs he will continue with beta-bree therapy. His most recent QTC was noted to be 554. Thus, amiodarone therapy would not be applicable at this time. Due to current QT prolongation and previous history of QT prolongation with amiodarone therapy. His troponin was noted to be negative at 0.033 upon admission. His heart catheterization February 2018 showed angiographically normal coronary arteries. His most recent echocardiogram in December 2018 showed ejection fraction of 10% and stage III diastolic dysfunction. Given his borderline blood pressure. We will stop Coreg and begin metoprolol succinate 50 mg p.o. daily. This can be titrated accordingly for heart rate control. If blood pressure tolerates this may be increased to metoprolol succinate 50 mg p.o. twice daily. Hopefully, this will allow for improved blood pressure which will assist with diuresis and overall symptoms. 2. Non-CAD related cardiomyopathy As noted above his most recent heart catheterization February 2018 showed angiographically normal coronary arteries. His echocardiogram in December 2018 showed ejection fraction 10% and stage III diastolic dysfunction. His admitting chest x-ray showed mild congestive heart failure. He underwent dialysis yesterday. He is currently on Lasix therapy, which he states producing very l ittle urine. Given that his ejection fraction is less than 35% and his history of left bundle branch block, he may benefit from a COMPOSITE BOND TECHNICIAN?D device. This resynchronization may also improve his symptoms. This will have to be addressed by an business change manager at a tertiary care center. After speaking with patient, he is agreeable to proceed with transfer to [facility] or [facility]. It is recommended that if insurance allows, that proceed with transfer to [facility] for electrophysiology consult in regards to reduced ejection fraction in the setting of a left bundle branch block for COMPOSITE BOND TECHNICIAN-D device. 3. Chronic systolic CHF He does have a history of chronic systolic mediated CHF. He will need to continue medical management and dialysis therapy as best as possible to maintain his volume status. As listed above, his beta-bree is being adjusted. He will continue with low-dose DWAYNE inhibitor. He will continue with diuretic therapy. Depending on overall progress, it may be reasonable to hold DWAYNE inhibitor for at least 36 hours and consider low-dose Entresto help manage symptoms. 4. Hyperlipidemia He will continue risk factor modification medical therapy as deemed appropriate. 5. Hypertension He will continue medical management and dialysis therapy as deemed appropriate to assist with blood pressure control. 6. End-stage renal failure on chronic hemodialysis He will continue under evaluation care of primary care team. Patient's case was discussed further with Dr. Kitchen, who will also personally evaluate patient. Thank you for allowing us to participate in the patients plan of care, if you have any questions please do not hesitate to call. This note was generated using a voice recognition system and there may be incorrect words, spelling or punctuation that were not noted when reviewing the office note prior to saving. <Rasta Kitchen - Last Filed: 01/01/19 13:03> Reason for Consult History of Present Illness: The patient is a 58 year old M [] Objective: Vital Signs Temp Pulse Resp BP Pulse Ox 98.3 F 108 H 16 107/81 H 97 01/01/19 09:29 01/01/19 09:29 01/01/19 09:29 01/01/19 09:29 01/01/19 09:29 Oxygen Flow Rate (L/min) 2 Oxygen Delivery Method Room Air Weight: 173 lb 8.061 oz Body Mass Index (BMI) 25.6 Finger Stick Blood Glucose 95 Intake and Output for Last 24 Hours 12/30/18 12/31/18 01/01/19 23:59 23:59 23:59 Intake Total 360 / 360 480 / 480 Output Total 3100 / 3100 Balance -2740 / -2740 480 / 480 01/01/19 05:45: WBC 4.8, RBC 3.78 L, Hgb 11.3 L, Hct 36.2 L, MCV 95.8 H, MCH 29.9, MCHC 31.2 L, Plt Count 104 L, MPV 12.2 H, Immature Gran % (Auto) 0.600, Ne ut % (Auto) 55.1, Lymph % (Auto) 29.1, Dade % (Auto) 12.5 H, Eos % (Auto) 2.1, Baso % (Auto) 0.6, Absolute Neuts (auto) 2.7, Nucleated RBC % 0 01/01/19 05:45: Sodium 134 L, Potassium 5.3 H, Chloride 99, Carbon Dioxide 28.0, Anion Gap 7, BUN 27 H, Creatinine 8.05 H*, Est GFR (MDRD) Af Amer 9 L, Est GFR (MDRD) Non-Af 7 L, BUN/Creatinine Ratio 3.4 L, Glucose 97, Calcium 7.0 L Rhythm: EKG: ECHO: Stress Test: Cardiac Cath: PCI: CT Surgery: Holter monitor: EPS: PPM: CXR: Chest CT Scan: Assessment/Plan Addendum: Date: 01-01-19 The patient was independently interviewed/examined The patient denies ongoing chest discomfort. He has had no acute shortness of breath/dyspnea. He has chronic shortness of breath and dyspnea. There is been no report of acute orthopnea or PND or worsening peripheral pitting edema. He has denied near syncope or syncope. He did present back, via nephrology, for concerns of recurrent cardiac dysrhythmia. He had been evaluated recently for concerns of paroxysmal atrial fibrillation. His cardiac rhythm has demonstrated findings of sinus versus ectopic atrial rhythm/tachycardia. He has had brief episodes of nonsustained wide complex tachycardia raising concerns as to the possibility of PAF with his underlying aberrancy/left bundle branch block pattern although there have also been concerns as to whether or not he has had episodes of a nonsustained wide- complex tachycardia compatible with nonsustained VT. He has been treated medically in the past with beta-blockers. He was on amiodarone during his recent hospitalization which was discontinued at the time of discharge. At that time he was released on beta-bree therapy. He had been asked to have outpatient follow-up to be considered for evaluation at tertiary care center for a primary prevention ICD which based upon his underlying left bundle branch block pattern would raise consideration for a biventricular ICD/COMPOSITE BOND TECHNICIAN therapy which may also benefit his underlying LV systolic function. At the moment his lungs appear to be clear without obvious rales or rhonchi. His cardiovascular exam demonstrates a regular rhythm with occasional ectopic complexes with normal S1 and S2. He has a 2/6 systolic murmur the lower sternal border rating toward the LVOT. His lower extremities demonstrate no ongoing lower extremity peripheral pitting edema. During his recent hospitalization he underwent follow-up transthoracic echocardiogram. Based on the report his estimated LVEF was reported at approximately 10%. This appears to decline since his previous noninvasive studies were performed in February 2018. At the present time the concern is his underlying cardiac rhythm as noted above. At the moment he will continue to be monitored. He will continue his beta- bree therapy. Depending upon his findings he may need additional antiarrhythmic therapy. This may include agents such as amiodarone. There was a concern during his recent hospitalization as to whether or not this led to concerning prolongation of his QT interval thus it was discontinued. He also has a non-CAD related cardiomyopathy. He has diminished LV systolic function. He has an underlying left bundle branch block pattern. Thus it was felt, as he has returned with concerns of his cardiac rhythm, etc., that he should be considered for transfer to a tertiary care center with electrophysiology support that could further evaluate his rhythm, recommend on medical management, and consider proceeding with placement of a primary pre vention ICD with biventricular ICD/COMPOSITE BOND TECHNICIAN therapy. In the meantime he will continue his medical therapy to assist with his volume control. He will also continue dialysis to assist with his volume control. The above was discussed with the patient and he was agreeable to this approach. The patient's case was also discussed with the [facility] hospitalist team and with Brandin Kay CNP. This note was generated using a voice recognition system and there may be incorrect words, spelling or punctuation that were not noted when reviewing the office note prior to saving.
[2019-01-01] MEDS: oxyCODONE 5 MG Tablet PO (09:34)
[2019-01-01] MEDS: Lisinopril 2.5 MG Tablet PO (09:35)
[2019-01-01] MEDS: Tamsulosin HCl 0.4 MG Capsule PO (09:35)
[2019-01-01] MEDS: Carvedilol 12.5 MG Tablet PO (09:35)
[2019-01-01] MEDS: Heparin Injection (Vial) 5,000 UNIT/ML VIAL 5000 UNIT SC (09:35)
[2019-01-01] MEDS: Loratadine 10 MG Tablet PO (09:35)
[2019-01-01] MEDS: Furosemide 40 MG Tablet PO (09:36)
[2019-01-01] MEDS: levETIRAcetam 500 MG Tablet PO (09:40)
--- NOTE | 2019-01-01 09:50 | PCM.PN.HOSP ---
Patient Problems: Active and Suspected Problems Arrhythmia (Acute) Hyperkalemia (Acute) Subjective: CC follow-up cardiac dysrhythmia Patient is a 58-year-old gentleman with multiple comorbidities sent from dialysis with palpitations. EKG demonstrated supraventricular tachycardia the patient underwent dialysis the day prior. Potassium down to 5.3 from an admission level of 6.0. Consultation placed to both cardiology as well as nephrology. Objective: GENERAL: cooperative HEENT: Atraumatic; EYES; Anicteric, Normal Conjunctiva NECK; supple, normal thyroid, RESPIRATORY: Diminished to auscultation CARDIOVASCULAR: Regular S1 S2, GI: soft, normoactive bowel sounds, : No Renal angle tenderness; EXTREMITIES: No edema, no clubbing, MUSCULOSKELETAL: no muscle waisting NEURO: Awake; no lateralizing signs. SKIN: No Rash PSYCH; Flat affect Vitals/I&O's: Vital Signs Temp Pulse Resp BP Pulse Ox 98.3 F 108 H 16 107/81 H 97 01/01/19 09:29 01/01/19 09:29 01/01/19 09:29 01/01/19 09:29 01/01/19 09:29 Oxygen Flow Rate (L/min) 2 Oxygen Delivery Method Room Air Weight: 78.7 kg Body Mass Index (BMI) 25.6 Finger Stick Blood Glucose 95 Intake and Output for Last 24 Hours 12/30/18 12/31/18 01/01/19 23:59 23:59 23:59 Intake Total 360 / 360 120 / 120 Output Total 3100 / 3100 Balance -2740 / -2740 120 / 120 Laboratory Results 01/01/19 05:45: WBC 4.8, RBC 3.78 L, Hgb 11.3 L, Hct 36.2 L, MCV 95.8 H, MCH 29.9, MCHC 31.2 L, RDW Std Deviation 61.6 H, RDW Coeff of Dharmesh 17.7 H, Plt Count 104 L, MPV 12.2 H, Immature Gran % (Auto) 0.600, Neut % (Auto) 55.1, Lymph % (Auto) 29.1, [place] % (Auto) 12.5 H, Eos % (Auto) 2.1, Baso % (Auto) 0.6, Absolute Neuts (auto) 2.7, Absolute Lymphs (auto) 1.40, Nucleated RBC % 0 01/01/19 05:45: Sodium 134 L, Potassium 5.3 H, Chloride 99, Carbon Dioxide 28.0, Anion Gap 7, BUN 27 H, Creatinine 8.05 H*, Estim Creat Clear Calc 9.88, Est GFR (MDRD) Af Amer 9 L, Est GFR (MDRD) Non-Af 7 L, BUN/Creatinine Ratio 3.4 L, Glucose 97, Calcium 7.0 L Current Medications Acetaminophen (Tylenol) 650 mg PO Q6H PRN PRN PRN Reason: Pain Score 1-3/Temp > 100.7 F Al Hydroxide/Mg Hydroxide (Mylanta Ii) 30 ml PO Q6H PRN PRN PRN Reason: Gastric Burning Albuterol Sulfate (Ventolin Aerosols) 2.5 mg INHALATION Q2H PRN PRN PRN Reason: SOB/Wheezing Allopurinol (Zyloprim) 100 mg PO DAILYCM [facility] Last Admin: 01/01/19 08:27 Dose: 100 mg Documented by: Atorvastatin Calcium (Lipitor) 10 mg PO QHS [facility] Last Admin: 12/31/18 23:13 Dose: 10 mg Documented by: Calcium Acetate (Phoslo Gel Cap) 1,334 mg PO TIDCM [facility] Last Admin: 01/01/19 08:27 Dose: 1,334 mg Documented by: Carvedilol (Coreg) 12.5 mg PO BID [facility] Last Admin: 01/01/19 09:35 Dose: 12.5 mg Documented by: Dextrose (D50w Syringe) 0 gm IV X1 PRN; Protocol PRN Reason: Hypoglycemia Diphenhydramine HCl (Benadryl) 75 mg PO TID PRN PRN PRN Reason: ITCHING Last Admin: 12/31/18 23:12 Dose: 75 mg Documented by: Furosemide (Lasix) 40 mg PO BID [facility] Last Admin: 01/01/19 09:36 Dose: 40 mg Documented by: Glucagon () 1 mg IM .X1 PRN PRN Reason: Hypoglycemia Guaifenesin (Robitussin) 20 ml PO Q4H PRN PRN PRN Reason: COUGH Last Admin: 12/31/18 17:55 Dose: 20 ml Documented by: Heparin Sodium (Porcine) (Heparin Na) 5,000 unit SC Q12 [facility] Last Admin: 01/01/19 09:35 Dose: 5,000 unit Documented by: Hydroxyzine Pamoate (Vistaril Pamoate Capsule) 25 mg PO Q8H PRN PRN PRN Reason: ANXIETY Last Admin: 12/31/18 20:04 Dose: 25 mg Documented by: Levetiracetam (Keppra Tablet) 500 mg PO DAILY [facility] Last Admin: 01/01/19 09:40 Dose: 500 mg Documented by: Lisinopril (Zestril) 2.5 mg PO DAILY [facility] Last Admin: 01/01/19 09:35 Dose: 2.5 mg Documented by: Loratadine (Claritin) 10 mg PO DAILY [facility] Last Admin: 01/01/19 09:35 Dose: 10 mg Documented by: Melatonin (Melatonin) 3 mg PO QHS PRN PRN PRN Reason: INSOMNIA Nitroglycerin (Nitrostat) 0.4 mg SUBLINGUAL Q5M PRN PRN Reason: CARDIAC/CHEST PAIN Ondansetron HCl (Zofran) 4 mg IV Q6H PRN PRN PRN Reason: NAUSEA/VOMITING Oxycodone HCl (Oxyir) 5 mg PO Q4H PRN PRN PRN Reason: Pain Score 4-5/10 Last Admin: 01/01/19 09:34 Dose: 5 mg Documented by: Prochlorperazine Maleate (Compazine Suppository) 25 mg RC Q4H PRN PRN PRN Reason: Breakthrough Nausea/Vomiting Last Admin: 12/31/18 21:05 Dose: 25 mg Documented by: Senna/Docusate Sodium (Senokot-S, Isabelle-Colace) 2 tablet PO BID PRN PRN PRN Reason: Constipation Tamsulosin HCl (Flomax) 0.4 mg PO DAILY [facility] Last Admin: 01/01/19 09:35 Dose: 0.4 mg Documented by: Tramadol HCl (Ultram) 50 mg PO Q8H PRN PRN PRN Reason: Pain STROKE Vital Signs/Narrative: Vital Signs Temp Pulse Resp BP Pulse Ox 01/01/19 09:29 98.3 F 108 H 16 107/81 H 97 01/01/19 07:40 94 Medical Necessity - Tobacco Use Smoking Status: Current every day smoker Assessment/Plan All Active Problems Arrhythmia (Acute) Hyperkalemia (Acute) Patient is a 58-year-old gentleman with multiple comorbidities sent from dialysis with palpitations. EKG demonstrated supraventricular tachycardia 1. Cardiac arrhythmia ~EKG on admission demonstrated blood tachycardia. Patient had apparently been managed with amiodarone during his previous admission however it was found that patient had prolonged QT amiodarone was therefore discontinued. Patient was also noted to have impaired kidney function as well as hyperkalemia on admission subsequently admitted to a monitored bed for dialysis with consultation placed to cardiology 2. 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 Olivares for emergency dialysis ?01/01/2019 had dialysis the day prior 3. Hyperkalemia ~secondary to #2 do suspect it may be contributing to #1 plan is for patient undergo emergency dialysis ?01/01/2019 potassium did improve from 6.0-5.4 4. Chronic systolic heart failure ~ due to nonischemic cardiomyopathy with an ejection fraction of 10% based on an echo obtained on 12/27/2018. Cardiology consultation from patient previous visit recommended referral for possible AICD placement down the road 5. Seizure disorder ~patient is on Keppra did continue 6. Essential hypertension ~patient blood pressure was controlled on admission do plan to restart home meds 7. Dyslipidemia ~patient is on statin therapy 8. Anemia ~secondary to anemia of chronic disorder/end-stage renal disease monitoring H&H no indication for blood transition at this point 10. DVT prophylaxis ~SC heparin Code Visit Inpatient E&M: 97668 Subs Hosp L2
--- NOTE | 2019-01-01 10:36 | CON.PCM_ITS ---
Consultation - Renal 12/31/18 - seen in ED on 12/31/18 PCP/ Referring MD: Requesting physician: Dr. Gonzalez Primary care physician: No Primary Care Phys Reason for Consultation:: ESRD, hyperkalemia - History of Present Illness History of Present Illness: The patient is a 58 year old M with history of non-ischemic CMP and ESRD presented to ED with palpitation. He was found to have K of 6.0 mEq/L. The patient denies CP. He is mildly dyspneic. However, there is no significant edema. He denies nausea, vomiting or diarrhea. The patient usually dialyzes at [facility] dialysis [place] on Saturday, Saturday and Saturday. He was actually sent from the dialysis unit because of palpitation and did not receive dialysis. - Allergies Allergies: Allergies Penicillins Allergy (Verified 12/26/18 06:57) Unknown sulfamethoxazole [From Bactrim] Allergy (Verified 12/26/18 06:57) Swelling trimethoprim [From Bactrim] Allergy (Verified 12/26/18 06:57) Swelling - Current Medications Current Medications: Current Medications Acetaminophen (Tylenol) 650 mg PO Q6H PRN PRN PRN Reason: Pain Score 1-3/Temp > 100.7 F Al Hydroxide/Mg Hydroxide (Mylanta Ii) 30 ml PO Q6H PRN PRN PRN Reason: Gastric Burning Albuterol Sulfate (Ventolin Aerosols) 2.5 mg INHALATION Q2H PRN PRN PRN Reason: SOB/Wheezing Allopurinol (Zyloprim) 100 mg PO DAILYCM [facility]S [facility] BEDS AT [facility] Last Admin: 01/01/19 08:27 Dose: 100 mg Documented by: Atorvastatin Calcium (Lipitor) 10 mg PO QHS [facility]S INCLUDE 234 BEDS AT [facility] Last Admin: 12/31/18 23:13 Dose: 10 mg Documented by: Calcium Acetate (Phoslo Gel Cap) 1,334 mg PO TIDCM COUNTS INCLUDE 234 BEDS AT [facility] Last Admin: 01/01/19 08:27 Dose: 1,334 mg Documented by: Dextrose (D50w Syringe) 0 gm IV X1 PRN; Protocol PRN Reason: Hypoglycemia Diphenhydramine HCl (Benadryl) 75 mg PO TID PRN PRN PRN Reason: ITCHING Last Admin: 12/31/18 23:12 Dose: 75 mg Documented by: Furosemide (Lasix) 40 mg PO BID [facility]S INCLUDE 234 BEDS AT [facility] Last Admin: 01/01/19 09:36 Dose: 40 mg Documented by: Glucagon () 1 mg IM .X1 PRN PRN Reason: Hypoglycemia Guaifenesin (Robitussin) 20 ml PO Q4H PRN PRN PRN Reason: COUGH Last Admin: 12/31/18 17:55 Dose: 20 ml Documented by: Heparin Sodium (Porcine) (Heparin Na) 5,000 unit SC Q12 [facility]S INCLUDE 234 BEDS AT [facility] Last Admin: 01/01/19 09:35 Dose: 5,000 unit Documented by: Hydroxyzine Pamoate (Vistaril Pamoate Capsule) 25 mg PO Q8H PRN PRN PRN Reason: ANXIETY Last Admin: 12/31/18 20:04 Dose: 25 mg Documented by: Levetiracetam (Keppra Tablet) 500 mg PO DAILY [facility]CLUDE 234 BEDS AT [facility] Last Admin: 01/01/19 09:40 Dose: 500 mg Documented by: Lisinopril (Zestril) 2.5 mg PO DAILY [facility]S [facility]CLUDE 234 BEDS AT [facility] Last Admin: 01/01/19 09:35 Dose: 2.5 mg Documented by: Loratadine (Claritin) 10 mg PO DAILY [facility]CLUDE 234 BEDS AT [facility] Last Admin: 01/01/19 09:35 Dose: 10 mg Documented by: Melatonin (Melatonin) 3 mg PO QHS PRN PRN PRN Reason: INSOMNIA Metoprolol Succinate (Toprol Xl (Beta Bree)) 50 mg PO DAILY [facility]CLUDE 234 BEDS AT [facility] Nitroglycerin (Nitrostat) 0.4 mg SUBLINGUAL Q5M PRN PRN Reason: CARDIAC/CHEST PAIN Ondansetron HCl (Zofran) 4 mg IV Q6H PRN PRN PRN Reason: NAUSEA/VOMITING Oxycodone HCl (Oxyir) 5 mg PO Q4H PRN PRN PRN Reason: Pain Score 4-5/10 Last Admin: 01/01/19 09:34 Dose: 5 mg Documented by: Prochlorperazine Maleate (Compazine Suppository) 25 mg RC Q4H PRN PRN PRN Reason: Breakthrough Nausea/Vomiting Last Admin: 12/31/18 21:05 Dose: 25 mg Documented by: Senna/Docusate Sodium (Senokot-S, Isabelle-Colace) 2 tablet PO BID PRN PRN PRN Reason: Constipation Tamsulosin HCl (Flomax) 0.4 mg PO DAILY [facility] 234 BEDS AT [facility] Last Admin: 01/01/19 09:35 Dose: 0.4 mg Documented by: Tramadol HCl (Ultram) 50 mg PO Q8H PRN PRN PRN Reason: Pain - Past Medical History Past Medical History (Chronic Problems): Chronic Problems Atrial fibrillation (Chronic) Supraventricular dysrhythmia (Chronic) Acute on chronic congestive heart failure (Chronic) CRF (chronic renal failure) (Chronic) Hyperlipidemia (Chronic) Seizure disorder (Chronic) HTN (hypertension) (Chronic) Anemia of chronic disease (Chronic) Cardiomyopathy (Chronic) CHF (congestive heart failure) (Chronic) ESRD (end stage renal disease) on dialysis (Chronic) - Past Surgical History Surgical History: - - prosthetic right eye, Rt upper arm AVF, right adrenal gland removal for unknown reason - Social History Smoking Status: Current every day smoker - Family History Maternal History Items: Diabetes Paternal History Items: Heart Disease Review of Systems Constitutional: Denies: Anorexia, Chills, Fever Eyes: Denies: Blurred vision, Pain, Redness HEENT: Denies: Head Aches, Sinus Congestion, Sinus Drainage Cardiovascular: Denies: Chest Pain, Claudication, Chest Pressure, Edema Respiratory: Reports: Shortness of breath upon exertion. Denies: Cough, Hemoptysis Gastrointestinal: Denies: Abdominal Pain, Nausea, Vomiting Genitourinary: Denies: Dysuria Musculoskeletal: Denies: Joint Pain, Joint Tenderness Skin: Denies: Rash, Wounds Neurological: Denies: Numbness, Tingling, Focal weakness Psychiatric: Denies: Anxiety, Depression, Homicidal Ideations, Suicidal Ideations Hematologic/ Lymphatic: Denies: Easy Bruising, Easy Bleeding Patient Problems: Active and Suspected Problems Arrhythmia (Acute) Hyperkalemia (Acute) - Physical Exam Vitals/I&O's: Vital Signs Temp Pulse Resp BP Pulse Ox 98.3 F 108 H 16 107/81 H 97 01/01/19 09:29 01/01/19 09:29 01/01/19 09:29 01/01/19 09:29 01/01/19 09:29 Oxygen Flow Rate (L/min) 2 Oxygen Delivery Method Room Air Weight: 78.7 kg Body Mass Index (BMI) 25.6 Finger Stick Blood Glucose 95 Intake and Output for Last 24 Hours 12/30/18 12/31/18 01/01/19 23:59 23:59 23:59 Intake Total 360 / 360 120 / 120 Output Total 3100 / 3100 Balance -2740 / -2740 120 / 120 General: Alert, Oriented x3 HEENT: Atraumatic, PERRLA, EOMI, Normocephalic Oral: Moist Mucosa Neck: Supple Lungs: Clear to auscultation Cardiovascular: Normal S1, Normal S2, No murmurs Abdomen: Bowel Sounds Present, Soft, Non Tender Extremities: No edema Skin: No rashes Musculoskeletal: No Tenderness to Palpation of Joints or Extremities Laboratory Results 01/01/19 05:45: WBC 4.8, RBC 3.78 L, Hgb 11.3 L, Hct 36.2 L, MCV 95.8 H, MCH 29.9, MCHC 31.2 L, RDW Std Deviation 61.6 H, RDW Coeff of Dharmesh 17.7 H, Plt Count 104 L, MPV 12.2 H, Immature Gran % (Auto) 0.600, Neut % (Auto) 55.1, Lymph % (Auto) 29.1, [place] % (Auto) 12.5 H, Eos % (Auto) 2.1, Baso % (Auto) 0.6, Absolute Neuts (auto) 2.7, Absolute Lymphs (auto) 1.40, Nucleated RBC % 0 01/01/19 05:45: Sodium 134 L, Potassium 5.3 H, Chloride 99, Carbon Dioxide 28.0, Anion Gap 7, BUN 27 H, Creatinine 8.05 H*, Estim Creat Clear Calc 9.88, Est GFR (MDRD) Af Amer 9 L, Est GFR (MDRD) Non-Af 7 L, BUN/Creatinine Ratio 3.4 L, Glucose 97, Calcium 7.0 L Current Medications Acetaminophen (Tylenol) 650 mg PO Q6H PRN PRN PRN Reason: Pain Score 1-3/Temp > 100.7 F Al Hydroxide/Mg Hydroxide (Mylanta Ii) 30 ml PO Q6H PRN PRN PRN Reason: Gastric Burning Albuterol Sulfate (Ventolin Aerosols) 2.5 mg INHALATION Q2H PRN PRN PRN Reason: SOB/Wheezing [facility] Last Admin: 01/01/19 08:27 Dose: 100 mg Documented by: Atorvastatin Calcium (Lipitor) 10 mg PO QHS [facility]CLUDE 234 BEDS AT [facility] Last Admin: 12/31/18 23:13 Dose: 10 mg Documented by: Calcium Acetate (Phoslo Gel Cap) 1,334 mg PO TIDCM COUNTS INCLUDE 234 BEDS AT [facility] Last Admin: 01/01/19 08:27 Dose: 1,334 mg Documented by: Dextrose (D50w Syringe) 0 gm IV X1 PRN; Protocol PRN Reason: Hypoglycemia Diphenhydramine HCl (Benadryl) 75 mg PO TID PRN PRN PRN Reason: ITCHING Last Admin: 12/31/18 23:12 Dose: 75 mg Documented by: Furosemide (Lasix) 40 mg PO BID [facility]CLUDE 234 BEDS AT [facility] Last Admin: 01/01/19 09:36 Dose: 40 mg Documented by: Glucagon () 1 mg IM .X1 PRN PRN Reason: Hypoglycemia Guaifenesin (Robitussin) 20 ml PO Q4H PRN PRN PRN Reason: COUGH Last Admin: 12/31/18 17:55 Dose: 20 ml Documented by: Heparin Sodium (Porcine) (Heparin Na) 5,000 unit SC Q12 [facility]S INCLUDE 234 BEDS AT [facility] Last Admin: 01/01/19 09:35 Dose: 5,000 unit Documented by: Hydroxyzine Pamoate (Vistaril Pamoate Capsule) 25 mg PO Q8H PRN PRN PRN Reason: ANXIETY Last Admin: 12/31/18 20:04 Dose: 25 mg Documented by: Levetiracetam (Keppra Tablet) 500 mg PO DAILY [facility]S INCLUDE 234 BEDS AT [facility] Last Admin: 01/01/19 09:40 Dose: 500 mg Documented by: Lisinopril (Zestril) 2.5 mg PO DAILY [facility]S [facility]CLUDE 234 BEDS AT [facility] Last Admin: 01/01/19 09:35 Dose: 2.5 mg Documented by: Loratadine (Claritin) 10 mg PO DAILY [facility]S [facility]CLUDE 234 BEDS AT [facility] Last Admin: 01/01/19 09:35 Dose: 10 mg Documented by: Melatonin (Melatonin) 3 mg PO QHS PRN PRN PRN Reason: INSOMNIA Metoprolol Succinate (Toprol Xl (Beta Bree)) 50 mg PO DAILY [facility]S INCLUDE 234 BEDS AT [facility] Nitroglycerin (Nitrostat) 0.4 mg SUBLINGUAL Q5M PRN PRN Reason: CARDIAC/CHEST PAIN Ondansetron HCl (Zofran) 4 mg IV Q6H PRN PRN PRN Reason: NAUSEA/VOMITING Oxycodone HCl (Oxyir) 5 mg PO Q4H PRN PRN PRN Reason: Pain Score 4-5/10 Last Admin: 01/01/19 09:34 Dose: 5 mg Documented by: Prochlorperazine Maleate (Compazine Suppository) 25 mg RC Q4H PRN PRN PRN Reason: Breakthrough Nausea/Vomiting Last Admin: 12/31/18 21:05 Dose: 25 mg Documented by: Senna/Docusate Sodium (Senokot-S, Isabelle-Colace) 2 tablet PO BID PRN PRN PRN Reason: Constipation Tamsulosin HCl (Flomax) 0.4 mg PO DAILY [facility] Last Admin: 01/01/19 09:35 Dose: 0.4 mg Documented by: Tramadol HCl (Ultram) 50 mg PO Q8H PRN PRN PRN Reason: Pain Assessment/Plan All Active Problems Arrhythmia (Acute) Hyperkalemia (Acute) 1. ESRD. HD on TTS as outpatient. Arranged for dialysis. Will keep patient on TTS schedule while he is here in the hospital. 2. Hyperkalemia. Used 2 K dialysate. Recheck K. 3. Anemia. Continue KITTY with HD. Monitor Hgb. 4. SHPT. Continue calcium acetate with meals. 5. Palpitation. Correct hyperkalemia with HD. Further management as per cardiology.
--- NOTE | 2019-01-01 10:54 | CASEMGMT ---
Acording to the [facility] website, the following are in-network tertiary facilities: [facility], [facility], [facility], [facility], [facility], and . Liz NUNEZ CM
--- NOTE | 2019-01-01 10:55 | DCINST_ITS ---
- Discharge Diagnoses Current Active Problems: Current Active and Chronic Problems Arrhythmia (Acute) Supraventricular dysrhythmia (Chronic) Acute on chronic congestive heart failure (Chronic) Hyperkalemia (Acute) CRF (chronic renal failure) (Chronic) You will use the following diet at home:: Renal (restricted protein/sodium) Discharge Activity: Return to Normal Activity Allergies/Adverse Reactions: Allergies Penicillins Allergy (Verified 12/26/18 06:57) Unknown sulfamethoxazole [From Bactrim] Allergy (Verified 12/26/18 06:57) Swelling trimethoprim [From Bactrim] Allergy (Verified 12/26/18 06:57) Swelling Medications to take at Discharge Calcium Acetate [Phoslo Gel Cap] 1,334 mg PO TIDCM 03/08/14 Loperamide [Imodium] 2 - 4 mg PO Q6H PRN PRN 08/21/16 Allopurinol [Zyloprim] 100 mg PO DAILYCM 02/18/18 Tamsulosin HCl [Flomax] 0.4 mg PO DAILY 02/18/18 Hydroxyzine HCl 25 mg PO Q8H PRN PRN 04/14/18 Levetiracetam 1 tab PO DAILY 04/14/18 Simvastatin 20 mg PO QHS 04/14/18 Furosemide 40 mg PO BID 11/05/18 Melatonin 5 mg PO QHS 11/05/18 Nitroglycerin 0.4 mg SL PRN PRN 11/05/18 DiphenhydrAMINE [Benadryl] 75 mg PO TID PRN PRN 11/26/18 Acetaminophen [Tylenol] 650 mg PO Q8H PRN PRN #30 cap 12/03/18 traMADol [Ultram] 50 mg PO Q8H PRN PRN 12/26/18 Carvedilol [Coreg (Beta Bree)] 12.5 mg PO BID 12/31/18 Lisinopril [Zestril] 2.5 mg PO DAILY 12/31/18 Primary Care Physician: Care Physician,No Primary [Primary Care Provider] - Test Results: Test results from this visit will be discussed in further detail at your follow- up appointment, if applicable. Please Follow Up With: Aman Cabral MD When: Saturday Please Follow Up With: Rasta Kitchen MD When: Saturday Proposed Discharge Date: 01/01/19
--- NOTE | 2019-01-01 10:59 | PCM.DC.SUM ---
Discharge Date and Diagnosis - Problem List Patient Problems: Active and Suspected Problems Arrhythmia (Acute) Hyperkalemia (Acute) Date of Admission: 12/31/18 Date of Discharge: 01/01/19 - Primary Discharge Diagnosis Active and Suspected Problems Arrhythmia (Acute) Hyperkalemia (Acute) - Secondary Discharge Diagnosis Chronic Problems Atrial fibrillation (Chronic) Supraventricular dysrhythmia (Chronic) Acute on chronic congestive heart failure (Chronic) CRF (chronic renal failure) (Chronic) Hyperlipidemia (Chronic) Seizure disorder (Chronic) HTN (hypertension) (Chronic) Anemia of chronic disease (Chronic) Cardiomyopathy (Chronic) CHF (congestive heart failure) (Chronic) ESRD (end stage renal disease) on dialysis (Chronic) Hospital Course and Treatment Imaging Results: Clinical Impression(s) from Imaging Studies Chest X-Ray 12/31/18 06:45 IMPRESSION: Cardiomegaly with mild CHF. Electronically Signed: Tray Theodore MD at 7:21 EDT , Service support , Operations: None Summary of Care Provided: Patient is a 58-year-old gentleman with multiple comorbidities sent from dialysis with palpitations. EKG demonstrated supraventricular tachycardia 1. Cardiac arrhythmia ~EKG on admission demonstrated blood tachycardia. Patient had apparently been managed with amiodarone during his previous admission however it was found that patient had prolonged QT amiodarone was therefore discontinued. Patient was also noted to have impaired kidney function as well as hyperkalemia on admission subsequently admitted to a monitored bed for dialysis with consultation placed to cardiology. Cardiology recommended for patient to be transferred to [facility] for EP for possible BiVicd. Call was placed patient was accepted for transfer 2. End-stage renal disease ~on hemodialysis consult was placed to patient's project safety manager Dr. Olivares for emergency dialysis ?01/01/2019 had dialysis the day prior 3. Hyperkalemia ~secondary to #2 do suspect it may be contributing to #1 plan is for patient undergo emergency dialysis ?01/01/2019 potassium did improve from 6. to5.4 4. Chronic systolic heart failure ~ due to nonischemic cardiomyopathy with an ejection fraction of 10% based on an echo obtained on 12/27/2018. Cardiology consultation from patient previous visit recommended referral for possible AICD placement down the road 5. Seizure disorder ~patient is on Keppra did continue 6. Essential hypertension ~patient blood pressure was controlled on admission do plan to restart home meds 7. Dyslipidemia ~patient is on statin therapy 8. Anemia ~secondary to anemia of chronic disorder/end-stage renal disease monitoring H&H no indication for blood transition at this point 10. DVT prophylaxis ~SC heparin Patient Problems: Active and Suspected Problems Arrhythmia (Acute) Hyperkalemia (Acute) Objective: GENERAL: cooperative HEENT: Atraumatic; EYES; Anicteric, Normal Conjunctiva NECK; supple, normal thyroid, RESPIRATORY: Diminished to auscultation CARDIOVASCULAR: Regular S1 S2, GI: soft, normoactive bowel sounds, : No Renal angle tenderness; EXTREMITIES: No edema, no clubbing, MUSCULOSKELETAL: no muscle waisting NEURO: Awake; no lateralizing signs. SKIN: No Rash PSYCH; Flat affect - Physical Exam Vitals/I&O's: Vital Signs Temp Pulse Resp BP Pulse Ox 98.3 F 108 H 16 107/81 H 97 01/01/19 09:29 01/01/19 09:29 01/01/19 09:29 01/01/19 09:29 01/01/19 09:29 Oxygen Flow Rate (L/min) 2 Oxygen Delivery Method Room Air Weight: 78.7 kg Body Mass Index (BMI) 25.6 Finger Stick Blood Glucose 95 Intake and Output for Last 24 Hours 12/30/18 12/31/18 01/01/19 23:59 23:59 23:59 Intake Total 360 / 360 120 / 120 Output Total 3100 / 3100 Balance -2740 / -2740 120 / 120 Laboratory Results 01/01/19 05:45: WBC 4.8, RBC 3.78 L, Hgb 11.3 L, Hct 36.2 L, MCV 95.8 H, MCH 29.9, MCHC 31.2 L, RDW Std Deviation 61.6 H, RDW Coeff of Dharmesh 17.7 H, Plt Count 104 L, MPV 12.2 H, Immature Gran % (Auto) 0.600, Neut % (Auto) 55.1, Lymph % (Auto) 29.1, Frio % (Auto) 12.5 H, Eos % (Auto) 2.1, Baso % (Auto) 0.6, Absolute Neuts (auto) 2.7, Absolute Lymphs (auto) 1.40, Nucleated RBC % 0 01/01/19 05:45: Sodium 134 L, Potassium 5.3 H, Chloride 99, Carbon Dioxide 28.0, Anion Gap 7, BUN 27 H, Creatinine 8.05 H*, Estim Creat Clear Calc 9.88, Est GFR (MDRD) Af Amer 9 L, Est GFR (MDRD) Non-Af 7 L, BUN/Creatinine Ratio 3.4 L, Glucose 97, Calcium 7.0 L Current Medications Acetaminophen (Tylenol) 650 mg PO Q6H PRN PRN PRN Reason: Pain Score 1-3/Temp > 100.7 F Al Hydroxide/Mg Hydroxide (Mylanta Ii) 30 ml PO Q6H PRN PRN PRN Reason: Gastric Burning Albuterol Sulfate (Ventolin Aerosols) 2.5 mg INHALATION Q2H PRN PRN PRN Reason: SOB/Wheezing Allopurinol (Zyloprim) 100 mg PO DAILYCM [facility] Last Admin: 01/01/19 08:27 Dose: 100 mg Documented by: Atorvastatin Calcium (Lipitor) 10 mg PO QHS [facility] Last Admin: 12/31/18 23:13 Dose: 10 mg Documented by: Calcium Acetate (Phoslo Gel Cap) 1,334 mg PO TIDCM [facility] Last Admin: 01/01/19 08:27 Dose: 1,334 mg Documented by: Dextrose (D50w Syringe) 0 gm IV X1 PRN; Protocol PRN Reason: Hypoglycemia Diphenhydramine HCl (Benadryl) 75 mg PO TID PRN PRN PRN Reason: ITCHING Last Admin: 12/31/18 23:12 Dose: 75 mg Documented by: Furosemide (Lasix) 40 mg PO BID [facility] Last Admin: 01/01/19 09:36 Dose: 40 mg Documented by: Glucagon () 1 mg IM .X1 PRN PRN Reason: Hypoglycemia Guaifenesin (Robitussin) 20 ml PO Q4H PRN PRN PRN Reason: COUGH Last Admin: 12/31/18 17:55 Dose: 20 ml Documented by: Heparin Sodium (Porcine) (Heparin Na) 5,000 unit SC Q12 [facility] Last Admin: 01/01/19 09:35 Dose: 5,000 unit Documented by: Hydroxyzine Pamoate (Vistaril Pamoate Capsule) 25 mg PO Q8H PRN PRN PRN Reason: ANXIETY Last Admin: 12/31/18 20:04 Dose: 25 mg Documented by: Levetiracetam (Keppra Tablet) 500 mg PO DAILY [facility] Last Admin: 01/01/19 09:40 Dose: 500 mg Documented by: Lisinopril (Zestril) 2.5 mg PO DAILY [facility] Last Admin: 01/01/19 09:35 Dose: 2.5 mg Documented by: Loratadine (Claritin) 10 mg PO DAILY [facility] Last Admin: 01/01/19 09:35 Dose: 10 mg Documented by: Melatonin (Melatonin) 3 mg PO QHS PRN PRN PRN Reason: INSOMNIA Metoprolol Succinate (Toprol Xl (Beta Bree)) 50 mg PO DAILY [facility] Nitroglycerin (Nitrostat) 0.4 mg SUBLINGUAL Q5M PRN PRN Reason: CARDIAC/CHEST PAIN Ondansetron HCl (Zofran) 4 mg IV Q6H PRN PRN PRN Reason: NAUSEA/VOMITING Oxycodone HCl (Oxyir) 5 mg PO Q4H PRN PRN PRN Reason: Pain Score 4-5/10 Last Admin: 01/01/19 09:34 Dose: 5 mg Documented by: Prochlorperazine Maleate (Compazine Suppository) 25 mg RC Q4H PRN PRN PRN Reason: Breakthrough Nausea/Vomiting Last Admin: 12/31/18 21:05 Dose: 25 mg Documented by: Senna/Docusate Sodium (Senokot-S, Isabelle-Colace) 2 tablet PO BID PRN PRN PRN Reason: Constipation Tamsulosin HCl (Flomax) 0.4 mg PO DAILY [facility] Last Admin: 01/01/19 09:35 Dose: 0.4 mg Documented by: Tramadol HCl (Ultram) 50 mg PO Q8H PRN PRN PRN Reason: Pain Discharge Diet: Renal Diet Discharge Activity: Return to Normal Activity Home Medications: Medications to take at Discharge Calcium Acetate [Phoslo Gel Cap] 1,334 mg PO TIDCM 03/08/14 Loperamide [Imodium] 2 - 4 mg PO Q6H PRN PRN 08/21/16 Allopurinol [Zyloprim] 100 mg PO DAILY 02/18/18 Tamsulosin HCl [Flomax] 0.4 mg PO DAILY 02/18/18 Hydroxyzine HCl 25 mg PO Q8H PRN PRN 04/14/18 Levetiracetam 1 tab PO DAILY 04/14/18 Simvastatin 20 mg PO QHS 04/14/18 Furosemide 40 mg PO BID 11/05/18 Melatonin 5 mg PO QHS 11/05/18 Nitroglycerin 0.4 mg SL PRN PRN 11/05/18 DiphenhydrAMINE [Benadryl] 75 mg PO TID PRN PRN 11/26/18 Acetaminophen [Tylenol] 650 mg PO Q8H PRN PRN #30 cap 12/03/18 traMADol [Ultram] 50 mg PO Q8H PRN PRN 12/26/18 Carvedilol [Coreg (Beta Bree)] 12.5 mg PO BID 12/31/18 Lisinopril [Zestril] 2.5 mg PO DAILY 12/31/18 Primary Care Physician: Care Physician,No Primary [Primary Care Provider] - Please Follow Up With: Aman Cabral MD When: Saturday Please Follow Up With: Rasta Kitchen MD When: Saturday Disposition: Acute care Hospital Minutes spent on discharge:: 45 Patient Condition:: Fair Medical Necessity - Tobacco Use Smoking Status: Current every day smoker Meaningful Use Info Meaningful Use Diagnoses (Choose all that apply): CHF - CHF DWAYNE/ARB ordered at discharge?: Yes Documented LVEF (%): 10 Code Visit Inpatient E&M: 68756 Disch Hosp
--- NOTE | 2019-01-01 14:00 | NURSING ---
Called and gave report to ENRIQUE Hammond at this time at [facility] [id number]. Given my direct number.
--- NOTE | 2019-01-01 14:49 | EKG12_ITS ---
Test Reason : ARRYTHMIA Blood Pressure : / mmHG Vent. Rate : 102 BPM Atrial Rate : 102 BPM P-R Int : 000 ms QRS Dur : 166 ms QT Int : 494 ms P-R-T Axes : 000 019 147 degrees QTc Int : 643 ms Sinus tachycardia with PAC's Left bundle branch block Abnormal ECG When compared with ECG of 31-DEC-2018 06:42, MANUAL COMPARISON REQUIRED, DATA IS UNCONFIRMED Confirmed by MODESTA DINH, MEHDI ([id number]), order editor BHAVANI JEREZ ([id number]) on 01/05/2019 11:31:31 AM Referred By: Antonio Gonzalez Confirmed By:MEHDI BYERS MD
--- NOTE | 2019-01-01 15:16 | PCA ---
Was on hold for over an hour and a half with [facility] trying to set up transport to . After that time per nursing I hung up and set up transport with [facility].
== END 2019-01-01 16:02 | disposition short-term general hospital (02) | DRG 308 ==
LOC: ED 07:20 → PCU 10:12
PROVIDERS: Admitting Provider Internal Medicine; Emergency Provider Emergency Medicine; Referring Provider Internal Medicine; Visit Provider Internal Medicine
DX: I47.1 Supraventricular tachycardia (principal); N18.6 End stage renal disease; I50.22 Chronic systolic (congestive) heart failure; I13.2 Hypertensive heart and chronic kidney disease with heart failure and with stage 5 chronic kidney disease, or end stage renal disease; I42.8 Other cardiomyopathies; Z99.2 Dependence on renal dialysis; E87.5 Hyperkalemia; E78.5 Hyperlipidemia, unspecified; G40.909 Epilepsy, unspecified, not intractable, without status epilepticus; I48.91 Unspecified atrial fibrillation; D63.1 Anemia in chronic kidney disease; I44.7 Left bundle-branch block, unspecified
CPT/HCPCS: 36415; 71045; 80048; 84484; 85025; 90937; 93005; 99251; 99284; 99406; J7030; A4216; G0257; G0463

== ENCOUNTER 2019-02-08 10:21 | Emergency (ER) | payer MEDICARE, SELFPAY ==
[2018-12-31 10:24] VITALS: BMI 25.6
[2019-02-08 10:24] VITALS: BP 112/77; PULSE 73; RESP 17; TEMP 37; O2SAT 93; BMI 24.2
--- NOTE | 2019-02-08 10:41 | ED.DCSUM_ITS ---
- ER Visit Summary Date of Service: 02/08/19 Chief Complaint: I may have a boil on my butt History of Present Illness: The patient is a 58 M sensitive past medical history of dilated cardia myopathy, A. fib, CHF, COPD, hypertension and end-stage renal disease on dialysis. Patient states for 2 weeks he thinks he may have had a boil on his buttock. States his girlfriend drain wear them with a needle. He denies any fever or chills. No pus. No bleeding. Otherwise he denies complaints other than he has intermittent diarrhea which is not new. Physical Examination: Middle-aged male no acute distress vital signs are stable afebrile. HEENT exam unremarkable. Poor dentition. Neck nontender. Lungs clear to auscultation bilaterally. Heart regular rate and rhythm. He has a recently placed pacemaker defibrillator in his left chest which is healing nicely. Abdomen soft and nontender normal bowel sounds no peritoneal signs. He is moving all 4 extremities. There is no edema. His right upper arm he has a fistula with a thrill. Back exam nontender. With a female nurse present in the room we did a buttock exam there is one external hemorrhoid that is soft flat not thrombosed or inflamed. It is nontender. There are no abscesses or cysts on either buttock. There are no groin abscesses. There is nothing to drain or treat with antibiotics at this time. Test Results: None Emergency Department Course and Treatment: After thorough examination the patient has no abscess or cyst at this time. Treatment Plan: Follow-up with his primary care physician. Warm soaks. Disposition: Discharge Impression: Non-thrombosed, noninflamed external hemorrhoid History of dilated cardiomyopathy, A. fib, CHF and end-stage renal disease on dialysis This note was generated with [employer] dictation software. It may contain incorrect words, spelling, and punctuation that were not noted in review of the chart prior to signing ED Disposition - Plan for ED Patient: Referrals: Aman Cabral MD [Primary Care Provider] -
--- NOTE | 2019-02-08 10:44 | ED.DEP ---
ED Disposition - Plan for ED Patient: Disposition: Home or Assisted Living Referrals: Aman Cabral MD [Primary Care Provider] - As Needed Additional Instructions: There are no abscesses or cysts on your but today. You do have a external hemorrhoid. Warm soaks in the tub. Follow-up with your doctor as needed.
[2019-02-08] MEDS: Acetaminophen 500 MG Tablet 1000 MG PO (10:51)
[2019-02-08 10:53] VITALS: RESP 16
== END 2019-02-08 10:53 | disposition home or self-care (01) ==
LOC: ED 10:46
PROVIDERS: Emergency Provider Emergency Medicine; PCP Internal Medicine
DX: K64.4 Residual hemorrhoidal skin tags (principal); I13.2 Hypertensive heart and chronic kidney disease with heart failure and with stage 5 chronic kidney disease, or end stage renal disease; N18.6 End stage renal disease; I50.9 Heart failure, unspecified; I42.0 Dilated cardiomyopathy; I48.91 Unspecified atrial fibrillation; G40.909 Epilepsy, unspecified, not intractable, without status epilepticus; J44.9 Chronic obstructive pulmonary disease, unspecified; F17.200 Nicotine dependence, unspecified, uncomplicated; Z99.2 Dependence on renal dialysis
CPT/HCPCS: 99284

== ENCOUNTER 2019-03-05 05:17 | Inpatient (IN) | payer MEDICARE, SELFPAY ==
[2019-03-03 11:11] VITALS: BMI 23.4
[2019-03-05] VITALS (10 sets, daily range): BP systolic 135–151; BP diastolic 72–81; PULSE 59–87; RESP 16–24; TEMP 36.4–36.8; O2SAT 90–97; BMI 23.7
--- NOTE | 2019-03-05 05:26 | HP.PCM_ITS ---
Problem List (1) Atrial fibrillation Status: Chronic Qualifiers: Atrial fibrillation type: paroxysmal Qualified Code(s): I48.0 - Paroxysmal atrial fibrillation (2) Supraventricular dysrhythmia Status: Chronic (3) Acute on chronic congestive heart failure Status: Acute Qualifiers: Heart failure type: combined systolic and diastolic Qualified Code(s): I50.43 - Acute on chronic combined systolic (congestive) and diastolic (congestive) heart failure (4) Hyperlipidemia Status: Chronic Qualifiers: Hyperlipidemia type: unspecified Qualified Code(s): E78.5 - Hyperlipidemia, unspecified (5) Seizure disorder Status: Chronic (6) HTN (hypertension) Status: Chronic Qualifiers: Hypertension type: essential hypertension Qualified Code(s): I10 - Essential (primary) hypertension (7) Anemia of chronic disease Status: Chronic (8) Cardiomyopathy Status: Chronic Qualifiers: Cardiomyopathy type: dilated Qualified Code(s): I42.0 - Dilated cardiomyopathy (9) CHF (congestive heart failure) Status: Chronic Qualifiers: Heart failure type: systolic Heart failure chronicity: chronic Qualified Code(s): I50.22 - Chronic systolic (congestive) heart failure (10) ESRD (end stage renal disease) on dialysis Status: Chronic History of Present Illness Date of Admission: 03/05/19 Chief Complaint: Shortness of breath. The patient is a 58 year old M patient with past medical history as mentioned above was directly admitted from outside hospital for presumed left lower lobe pneumonia according to the ER physician from the outside facility. Patient arrived 5 hours after he was accepted for transfer. Patient complained of exertional shortness of breath that has been going on for couple of weeks, it is exertional comes on with minimal exertion, has been progressive and became even at rest, minimal relief with rest, associated with cough with minimal sputum and without other associated symptoms. He denied orthopnea or PND. He denied chest pain, palpitation, dizziness or lightheadedness. He denied fever or chills. On late December,, patient was admitted for cardiac arrhythmia and questionable paroxysmal A. fib for which she was transferred to tertiary care center and he had pacemaker placed. He stated that his symptoms started several days after placement of the pacemaker and has been progressing since then. He denied leg edema. He goes for dialysis on Mondays, Wednesdays and Fridays. This week, he went for dialysis on Saturday and he is supposed to go for dialysis today and his dialysis session was moved 1 day forward because of the holidays. His vital signs are stable. He was minimally short of breath but pulse ox was 97% on room air. His routine blood work was remarkable for hemoglobin of 9.4 g/dL, potassium of 5.2, BUN of 51, creatinine 11.1 and glucose of 77 mg/dL. LFT was unremarkable. EKG revealed paced rhythm. Troponin was 0.04 and it is normal. BNP was 4534. Chest x-ray revealed obvious bilateral basilar pulmonary vascular congestion. ABG revealed pH of 7.52, PCO2 of 36 and PO2 of 94. He is being admitted for acute on chronic systolic CHF. Past Medical History Past Medical History (Chronic Problems): Chronic Problems Atrial fibrillation (Chronic) Supraventricular dysrhythmia (Chronic) Hyperlipidemia (Chronic) Seizure disorder (Chronic) HTN (hypertension) (Chronic) Anemia of chronic disease (Chronic) Cardiomyopathy (Chronic) CHF (congestive heart failure) (Chronic) ESRD (end stage renal disease) on dialysis (Chronic) Allergies Penicillins Allergy (Verified 03/03/19 11:10) Unknown sulfamethoxazole [From Bactrim] Allergy (Verified 03/03/19 11:10) Swelling trimethoprim [From Bactrim] Allergy (Verified 03/03/19 11:10) Swelling Home Medications: Ambulatory Orders Medication Instructions Recorded Calcium Acetate [Phoslo Gel Cap] 1,334 mg PO TIDCM 03/08/14 Loperamide [Imodium] 2 - 4 mg PO Q6H PRN PRN 08/21/16 Allopurinol [Zyloprim] 100 mg PO DAILYCM 02/18/18 Tamsulosin HCl [Flomax] 0.4 mg PO DAILY 02/18/18 Hydroxyzine HCl 25 mg PO Q8H PRN PRN 04/14/18 Levetiracetam 1 tab PO DAILY 04/14/18 Simvastatin 20 mg PO QHS 04/14/18 Furosemide 40 mg PO BID 11/05/18 Melatonin 5 mg PO QHS 11/05/18 Nitroglycerin 0.4 mg SL PRN PRN 11/05/18 DiphenhydrAMINE [Benadryl] 75 mg PO TID PRN PRN 11/26/18 Acetaminophen [Tylenol] 650 mg PO Q8H PRN PRN #30 cap 12/03/18 traMADol [Ultram] 50 mg PO Q8H PRN PRN 12/26/18 carvedilol 12.5 mg tablet 12.5 mg PO BID #180 tab 03/03/19 lisinopril 2.5 mg tablet 2.5 mg PO DAILY #90 tab 03/03/19 Surgical History: pacemaker implantation, - - prosthetic right eye, Rt upper arm AVF, right adrenal gland removal for unknown reason Psychiatric History: No pertinent psych hx Smoking Status: Current every day smoker Tobacco Use: Cigarettes Alcohol: None Drugs: None - *Family History Maternal History Items: Diabetes Paternal History Items: Heart Disease Review of Systems Constitutional: Denies: Anorexia, Chills, Fever, Weakness Eyes: Denies: Blurred vision, Double vision, Drainage, Redness HEENT: Denies: Difficulty Hearing, Ear Pain, Eye Pain, Nasal Congestion, Sore Throat Cardiovascular: Denies: Chest Pain, Chest Pressure, Chest Tightness, Edema, Heaviness, Palpitations, Paroxysmal Noc. Dyspnea, Syncope Respiratory: Reports: Cough, Shortness of breath at rest, Shortness of breath upon exertion. Denies: Pleuritic Pain, Sputum production, Wheezing Gastrointestinal: Denies: Abdominal Pain, Constipation, Diarrhea, Nausea, Vomiting Genitourinary: Denies: Dysuria, Frequency, Hematuria Musculoskeletal: Denies: Arm Pain, Back Pain, Foot Pain Skin: Denies: Dryness, Rash Neurological: Denies: Balance problems, Double vision, Change in Speech, Slurred speech, Confusion, Headaches, Incoordination, Numbness Psychiatric: Denies: Anxiety, Depression Endocrine: Denies: Change in Body Habitus, Polydipsia, Polyuria VTE Information - Inpt Only VTE Present on Admission: No VTE Mechan Device Prophylaxis: None VTE Pharm Prophylaxis ordered?: Yes - Physical Exam Vitals/I&O's: Vital Signs Temp Pulse Resp BP Pulse Ox 97.5 F L 59 L 24 H 137/81 H 97 03/05/19 04:48 03/05/19 04:48 03/05/19 04:48 03/05/19 04:48 03/05/19 04:48 Oxygen Delivery Method Room Air Weight: 160 lb 11.472 oz Body Mass Index (BMI) 23.7 Finger Stick Blood Glucose 95 General: Alert, Oriented x3, Cooperative, - - Minimally short of breath. HEENT: Atraumatic, PERRLA, EOMI, Normocephalic Oral: Moist Mucosa, No Gingival or Mucosal Lesions/ Ulcerations Neck: Supple, No JVD, Negative Carotid Bruits, Trachea Midline, Thyroid Normal Size and Texture Lungs: No rhonchi, No wheeze, Diminished, Rales, - - Decreased breath sounds at the bases, faint crackles. Cardiovascular: Regular rate, Regular Rhythm, Normal S1, Normal S2, PMI Normal Abdomen: Bowel Sounds Present, Soft, Non Tender, Non-Distended, No Hepato- splenomegaly Extremities: No clubbing, No cyanosis, No edema Skin: No rashes, No breakdown Lymphatic: No Cervical, Supraclavicular, or Inguinal Adenopathy Neurological: Cranial nerves II-XII grossly intact, Motor Exam 5/5 strength throughout Psych/Mental Status: Normal Affect, Appropriate, Alert and oriented to time, place, person, mood and affect Laboratory data: CBC: WBC is 6.7, hemoglobin 9.4, platelet count is 148,000. BMP: Sodium 136, potassium is 5.2, BUN 51, creatinine 11.1, glucose 77. LFT was unremarkable. Troponin was 0.04, normal. BNP 4534. ABG: pH 7.52, PCO2 36, PO2 94. Chest x-ray: Bilateral basilar pulmonary vascular congestion, cardiomegaly. Current Medications Sodium Chloride () 250 mls @ 15 mls/hr IV .[id number] PRN PRN Reason: Saline Flush Sodium Chloride () 250 mls @ 15 mls/hr IV .[id number] PRN PRN Reason: Additional IVPB Infusion Sodium Chloride () 10 - 40 ml IV UD PRN PRN Reason: SALINE FLUSH Assessment/Plan All Active Problems Acute on chronic congestive heart failure (Acute) This is a 58 years old male patient admitted directly from outside facility for exertional shortness of breath that has been progressing over the last couple of weeks which started after he had pacemaker implanted for cardiac arrhythmia/paroxysmal A. fib and he was found to have acute on chronic systolic CHF. #1 acute on chronic systolic CHF: Based on symptoms, chest x-ray findings and elevated BNP. BNP was 4534. Patient does have a history of cardiomyopathy with chronic systolic CHF, had 2D echocardiogram on December, that showed ejection fraction of 10% and stage III diastolic dysfunction. Plan: Admit to PCU, cardiac monitoring, serial cardiac enzymes, start IV Lasix, hemodialysis today, input output chart, fluid restriction, continue Coreg and lisinopril, albuterol PRN, repeat CBC and BMP tomorrow morning. #2 recent history of cardiac arrhythmia/questionable A. fib with RVR: Status p ost pacemaker. EKG reviewed, revealed paced rhythm. No acute changes. Troponin is normal. #3 chronic systolic CHF/cardiomyopathy: With acute exacerbation as above. Plan for IV diuresis, hemodialysis, continue Coreg and lisinopril. #4 ESRD on hemodialysis: Patient supposed to go for dialysis today instead of yesterday because of the holidays. Plan: Nephrology consult, dialysis today. #5 seizure disorder: Stable, continue Keppra. #6 hypertension: Stable, continue Coreg and lisinopril. #7 chronic anemia: Due to anemia of chronic disease, hemoglobin stable at baseline. #8 hyperlipidemia: Continue statins. #9 DVT prophylaxis: Subcu heparin. This note was generated with [employer] dictation software. It may contain incorrect words, spelling, and punctuation that were not noted in checking the note before signing. Code Visit Inpatient E&M: 51250 Init Hosp L3
[2019-03-05] MEDS: traMADol 50 MG Tablet PO (06:39)
[2019-03-05] MEDS: Furosemide 40 MG/4 ML Vial IV (06:39)
[2019-03-05] MEDS: 0.9% Saline Lock 10 ML Syringe IV (06:40)
[2019-03-05] MEDS: Albuterol 2.5 MG/3 ML VIAL.NEB. INHALATION ×3 (07:25→15:19)
[2019-03-05] MEDS: Acetaminophen 325 MG Tablet 650 MG PO (08:30)
[2019-03-05] MEDS: Calcium Acetate 667 MG Capsule 1334 MG PO ×3 (08:31→17:06)
[2019-03-05] MEDS: Tamsulosin HCl 0.4 MG Capsule PO (08:31)
[2019-03-05] MEDS: Allopurinol 100 MG Tablet PO (08:31)
[2019-03-05] MEDS: Heparin Injection (Vial) 5,000 UNIT/ML VIAL 5000 UNIT SC (08:31)
[2019-03-05] MEDS: levETIRAcetam 500 MG Tablet PO (08:32)
--- NOTE | 2019-03-05 11:45 | CASEMGMT ---
Addendum entered by Gracia Koenig 03/05/19 14:19: This RN CM back to room to complete assessment and pt is getting hooked up to dialysis at this time. Will attempt again later. Liz NUNEZ CM Original Note: This RN CM to room to complete CM assessment and pt is on the phone at this time. Will attempt again later. Liz NUNEZ CM
--- NOTE | 2019-03-05 12:03 | CASEMGMT ---
Call to [facility] and per Kayla, pt was there on saturday and completed full treatment. She states that pt even ended 1 kg below his dry weight. Pt was scheduled ,, this week d/t the holiday. She states that they are unable to accomodate pt coming today even if he left right now. She is aware that pt may be there tomorrow am for normal 0615 treatment, voices understanding. SStcarolann NUNEZ CM
[2019-03-05] MEDS: Loperamide 2 MG Capsule PO (12:26)
[2019-03-05] MEDS: Epoetin Alfa epbx 10,000 UNITS/ML 4400 UNIT IV (14:48)
--- NOTE | 2019-03-05 15:09 | DCINST_ITS ---
- Discharge Diagnoses Reason(s) for Visit for Discharge Instructions: Shortness of breath You will use the following diet at home:: Renal (restricted protein/sodium) Your food should be the consistency of: Regular Your liquids should be the consistency of: Regular/Thin Discharge Activity: Return to Normal Activity Additional Instructions: Continue to take all your medications as prescribed. Follow up with dialysis as planned. Allergies/Adverse Reactions: Allergies Penicillins Allergy (Verified 03/03/19 11:10) Unknown sulfamethoxazole [From Bactrim] Allergy (Verified 03/03/19 11:10) Swelling trimethoprim [From Bactrim] Allergy (Verified 03/03/19 11:10) Swelling Medications to take at Discharge Calcium Acetate [Phoslo Gel Cap] 1,334 mg PO TIDCM 03/08/14 Loperamide [Imodium] 2 - 4 mg PO Q6H PRN PRN 08/21/16 Allopurinol [Zyloprim] 100 mg PO DAILYCM 02/18/18 Tamsulosin HCl [Flomax] 0.4 mg PO DAILY 02/18/18 Hydroxyzine HCl 25 mg PO Q8H PRN PRN 04/14/18 Levetiracetam 1 tab PO DAILY 04/14/18 Simvastatin 20 mg PO QHS 04/14/18 Furosemide 40 mg PO BID 11/05/18 Melatonin 5 mg PO QHS 11/05/18 Nitroglycerin 0.4 mg SL PRN PRN 11/05/18 DiphenhydrAMINE [Benadryl] 75 mg PO TID PRN PRN 11/26/18 Acetaminophen [Tylenol] 650 mg PO Q8H PRN PRN #30 cap 12/03/18 traMADol [Ultram] 50 mg PO Q8H PRN PRN 12/26/18 carvedilol 12.5 mg tablet 12.5 mg PO BID #180 tab 03/03/19 lisinopril 2.5 mg tablet 2.5 mg PO DAILY #90 tab 03/03/19 Primary Care Physician: Aman Cabral MD [Primary Care Provider] - Please follow up with your Primary Care Physician in: within 1-2 weeks Test Results: Test results from this visit will be discussed in further detail at your follow- up appointment, if applicable. Proposed Discharge Date: 03/05/19
--- NOTE | 2019-03-05 15:10 | DS.PCM_ITS ---
Discharge Date and Diagnosis Date of Admission: 03/05/19 Date of Discharge: 03/05/19 - Primary Discharge Diagnosis Acute on chronic CHF Fluid overload - Secondary Discharge Diagnosis Chronic Problems Atrial fibrillation (Chronic) Supraventricular dysrhythmia (Chronic) Hyperlipidemia (Chronic) Seizure disorder (Chronic) HTN (hypertension) (Chronic) Anemia of chronic disease (Chronic) Cardiomyopathy (Chronic) CHF (congestive heart failure) (Chronic) ESRD (end stage renal disease) on dialysis (Chronic) Hospital Course and Treatment Nephrology Operations: None Procedures: None Summary of Care Provided: The patient is a 58 year old M with past medical history of ESRD on HD, hypertension, seizure disorder, hyperlipidemia, chronic atrial fibrillation who was admitted with progressive shortness of breath. Patient last had his dialysis on Saturday and was supposed to have dialysis on 03/06/19 and 03/06/19 because of the holidays. He was admitted as direct transfer from the outside facility. His vitals were stable with SPO2 97% on room air. His BNP was 4534. Chest x-ray showed bilateral bibasilar pulmonary vascular congestion. His management was that of acute on chronic CHF. Patient had dialysis on the day of discharge. He was able to ambulate the halls after discharge. Denied chest pain, or shortness of breath. His Spo2 stayed around 93% on room air. Subjective: On the day of discharge, patient was seen and examined. Denied any new complaint. Shortness of breath had improved. He was lying almost flat. Objective: Physical exam: General: Alert, Oriented x3, Cooperative HEENT: Atraumatic, PERRLA, EOMI, Normocephalic Oral: Moist Mucosa, No Gingival or Mucosal Lesions/ Ulcerations Neck: Supple, No JVD, Negative Carotid Bruits, Trachea Midline, Thyroid Normal Size and Texture Lungs: No rhonchi, No wheeze, Diminished, Rales, - - Decreased breath sounds at the bases, faint crackles. Cardiovascular: Regular rate, Regular Rhythm, Normal S1, Normal S2, PMI Normal Abdomen: Bowel Sounds Present, Soft, Non Tender, Non-Distended, No Hepato- splenomegaly Extremities: No clubbing, No cyanosis, No edema Skin: No rashes, No breakdown Lymphatic: No Cervical, Supraclavicular, or Inguinal Adenopathy Neurological: Cranial nerves II-XII grossly intact, Motor Exam 5/5 strength throughout Psych/Mental Status: Normal Affect, Appropriate, Alert and oriented to time, place, person, mood and affect - Physical Exam Vitals/I&O's: Vital Signs Temp Pulse Resp BP Pulse Ox 97.7 F L 68 16 151/78 H 96 03/05/19 10:45 03/05/19 11:18 03/05/19 11:18 03/05/19 10:45 03/05/19 10:45 Oxygen Delivery Method Room Air Weight: 72.9 kg Body Mass Index (BMI) 23.7 Finger Stick Blood Glucose 95 Intake and Output for Last 24 Hours 03/03/19 03/04/19 03/05/19 23:59 23:59 23:59 Intake Total 240 / 240 Balance 240 / 240 Microbiology Past 72 Hours 03/05/19 06:47 Stool C. difficile DNA Amplification - Final Laboratory Results 03/05/19 05:55: B-Natriuretic Peptide 4590.6 H 03/05/19 05:55: Troponin I 0.016 03/05/19 12:15: Troponin I 0.019 Current Medications Acetaminophen (Tylenol) 650 mg PO Q6H PRN PRN PRN Reason: Pain Score 1-3/Temp > 100.7 F Last Admin: 03/05/19 08:30 Dose: 650 mg Documented by: Albuterol Sulfate (Ventolin Aerosols) 2.5 mg INHALATION Q4H PRN PRN PRN Reason: Shortness of breath, wheezing. Last Admin: 03/05/19 11:18 Dose: 2.5 mg Documented by: [facility]) [facility] Last Admin: 03/05/19 08:31 Dose: 100 mg Documented by: Atorvastatin Calcium (Lipitor) 10 mg PO QHS [facility] Calcium Acetate (Phoslo Gel Cap) 1,334 mg PO TIDCM [facility] Last Admin: 03/05/19 12:26 Dose: 1,334 mg Documented by: Carvedilol (Coreg) 12.5 mg PO BID [facility] Diphenhydramine HCl (Benadryl) 75 mg PO TID PRN PRN PRN Reason: ITCHING Furosemide (Lasix) 40 mg IV Q8 [facility] Last Admin: 03/05/19 06:39 Dose: 40 mg Documented by: Heparin Sodium (Porcine) (Heparin Na) 5,000 unit SC Q12 [facility] Last Admin: 03/05/19 08:31 Dose: 5,000 unit Documented by: Hydroxyzine Pamoate (Vistaril Pamoate Capsule) 25 mg PO Q8H PRN PRN PRN Reason: ANXIETY Sodium Chloride () 250 mls @ 15 mls/hr IV .[id number] PRN PRN Reason: Saline Flush Sodium Chloride () 250 mls @ 15 mls/hr IV .[id number] PRN PRN Reason: Additional IVPB Infusion Levetiracetam (Keppra Tablet) 500 mg PO DAILY [facility] Last Admin: 03/05/19 08:32 Dose: 500 mg Documented by: Lisinopril (Zestril) 2.5 mg PO DAILY [facility] Loperamide HCl (Imodium) 2 mg PO Q2H PRN PRN PRN Reason: Diarrhea Last Admin: 03/05/19 12:26 Dose: 2 mg Documented by: Melatonin (Melatonin) 5 mg PO QHS [facility] Ondansetron HCl (Zofran) 4 mg IV Q8H PRN PRN PRN Reason: NAUSEA/VOMITING Sodium Chloride () 10 - 40 ml IV UD PRN PRN Reason: SALINE FLUSH Last Admin: 03/05/19 06:40 Dose: 20 ml Documented by: Tamsulosin HCl (Flomax) 0.4 mg PO DAILY [facility] Last Admin: 03/05/19 08:31 Dose: 0.4 mg Documented by: Tramadol HCl (Ultram) 50 mg PO Q8H PRN PRN PRN Reason: Pain -12/18 Last Admin: 03/05/19 06:39 Dose: 50 mg Documented by: Discharge Diet: Low fat/ Low Cholesterol, 2000 mg Sodium Diet Discharge Activity: Return to Normal Activity Home Medications: Medications to take at Discharge Calcium Acetate [Phoslo Gel Cap] 1,334 mg PO TIDCM 03/08/14 Loperamide [Imodium] 2 - 4 mg PO Q6H PRN PRN 08/21/16 Allopurinol [Zyloprim] 100 mg PO DAILY 02/18/18 Tamsulosin HCl [Flomax] 0.4 mg PO DAILY 02/18/18 Hydroxyzine HCl 25 mg PO Q8H PRN PRN 04/14/18 Levetiracetam 1 tab PO DAILY 04/14/18 Simvastatin 20 mg PO QHS 04/14/18 Furosemide 40 mg PO BID 11/05/18 Melatonin 5 mg PO QHS 11/05/18 Nitroglycerin 0.4 mg SL PRN PRN 11/05/18 DiphenhydrAMINE [Benadryl] 75 mg PO TID PRN PRN 11/26/18 Acetaminophen [Tylenol] 650 mg PO Q8H PRN PRN #30 cap 12/03/18 traMADol [Ultram] 50 mg PO Q8H PRN PRN 12/26/18 carvedilol 12.5 mg tablet 12.5 mg PO BID #180 tab 03/03/19 lisinopril 2.5 mg tablet 2.5 mg PO DAILY #90 tab 03/03/19 Primary Care Physician: Aman Cabral MD [Primary Care Provider] - Please follow up with your Primary Care Physician in: within 1-2 weeks Disposition: Home Minutes spent on discharge:: 40 Patient Condition:: Stable Medical Necessity - Tobacco Use Smoking Status: Current every day smoker Tobacco Use: Cigarettes Meaningful Use Info Meaningful Use Diagnoses (Choose all that apply): CHF - CHF DWAYNE/ARB ordered at discharge?: Yes Documented LVEF (%): 25 Code Visit Inpatient E&M: 97859 Disch Hosp
--- NOTE | 2019-03-05 15:13 | CASEMGMT ---
ENRIQUE REIS Assessment: Face to Face with patient for initial transition planning/care coordination assessment. RN CHATO introduced self and role at [facility], pt voices understanding and consents to assessment at this time. Pt is lying in bed in no distress at this time. Pt is A/Ox4 at this time and answers all questions appropriately at this time. Care providers, pharmacy, and demographics verified at this time. Presentation: Direct admit from [facility] for presumed LLL pna/SOB Admitting dx: Acute on Chronic systolic CHF PCP: Misha Specialists: Johanna, nephro; Fidelina, cardio Preferred Pharmacy: [facility] Living Will/HPOA: Pt states does not have LW/HPOA and declines info at this time. LNOK: Rasta Peterson, brother Living Arrangements: Pt states lives alone in 3rd floor apt with elevator and states no concerns at home at this time. Pt states is normally independent with ADL's. Transportation: Pt states uses [employer], [employer], and [employer] for transportation. Pt states that he has a bunch of appts set up for April and is not sure how he's going to get there and this RN CHATO asked if he had tried [facility] yet and pt stated 'not yet.' Pt is anxious to leave today but is not sure if one of his brothers can come get him. Pt aware that [facility] van and [facility] will not be available by the time that he is done with dialysis, voices understanding. Se charge preparation technician aware, voices understanding. DME/HHC: Pt states no current DME or need for any at this time. Pt states no hx of HHC or SNF in the past. Pt has OP dialysis set up for MWF at [facility]. Pt states no concerns with going home at time of discharge. Pt states is disabled. Pt states smokes about 1.5packs/day and does not drink ETOH. Pt states no further concerns/needs at this time. CM to follow for any further discharge planning/needs. Advised pt to ask for CM if any further questions/concerns/needs arise, voices understanding. Pt Goal: Home Plan[place] ENRIQUE REIS
--- NOTE | 2019-03-05 15:41 | PCM.CONS.R ---
Consultation - Renal PCP/ Referring MD: Requesting physician: [] Primary care physician: Aman Cabral MD - History of Present Illness History of Present Illness: The patient is a 58 year old M PMH of ESRD. Pt was admitted for worsening SOB and was found to have CHF. HD session was arranged for today. pt was seen during HD session today HD access is right UE AVF ROS; 12 systems review is negative[] - Allergies Allergies: Allergies Penicillins Allergy (Verified 03/03/19 11:10) Unknown sulfamethoxazole [From Bactrim] Allergy (Verified 03/03/19 11:10) Swelling trimethoprim [From Bactrim] Allergy (Verified 03/03/19 11:10) Swelling - Current Medications Current Medications: Current Medications Acetaminophen (Tylenol) 650 mg PO Q6H PRN PRN PRN Reason: Pain Score 1-3/Temp > 100.7 F Last Admin: 03/05/19 08:30 Dose: 650 mg Documented by: Albuterol Sulfate (Ventolin Aerosols) 2.5 mg INHALATION Q4H PRN PRN PRN Reason: Shortness of breath, wheezing. Last Admin: 03/05/19 15:19 Dose: 2.5 mg Documented by: Allopurinol (Zyloprim) 100 mg PO DAILYCM [facility] Last Admin: 03/05/19 08:31 Dose: 100 mg Documented by: Atorvastatin Calcium (Lipitor) 10 mg PO QHS [facility] Calcium Acetate (Phoslo Gel Cap) 1,334 mg PO TIDCM [facility] Last Admin: 03/05/19 12:26 Dose: 1,334 mg Documented by: Carvedilol (Coreg) 12.5 mg PO BID [facility] Diphenhydramine HCl (Benadryl) 75 mg PO TID PRN PRN PRN Reason: ITCHING Furosemide (Lasix) 40 mg IV Q8 [facility] Last Admin: 03/05/19 06:39 Dose: 40 mg Documented by: Heparin Sodium (Porcine) (Heparin Na) 5,000 unit SC Q12 [facility] Last Admin: 03/05/19 08:31 Dose: 5,000 unit Documented by: Hydroxyzine Pamoate (Vistaril Pamoate Capsule) 25 mg PO Q8H PRN PRN PRN Reason: ANXIETY Sodium Chloride () 250 mls @ 15 mls/hr IV .[id number] PRN PRN Reason: Saline Flush Sodium Chloride () 250 mls @ 15 mls/hr IV .[id number] PRN PRN Reason: Additional IVPB Infusion Levetiracetam (Keppra Tablet) 500 mg PO DAILY [facility] Last Admin: 03/05/19 08:32 Dose: 500 mg Documented by: Lisinopril (Zestril) 2.5 mg PO DAILY [facility] Loperamide HCl (Imodium) 2 mg PO Q2H PRN PRN PRN Reason: Diarrhea Last Admin: 03/05/19 12:26 Dose: 2 mg Documented by: Melatonin (Melatonin) 5 mg PO QHS [facility] Ondansetron HCl (Zofran) 4 mg IV Q8H PRN PRN PRN Reason: NAUSEA/VOMITING Sodium Chloride () 10 - 40 ml IV UD PRN PRN Reason: SALINE FLUSH Last Admin: 03/05/19 06:40 Dose: 20 ml Documented by: Tamsulosin HCl (Flomax) 0.4 mg PO DAILY [facility] Last Admin: 03/05/19 08:31 Dose: 0.4 mg Documented by: Tramadol HCl (Ultram) 50 mg PO Q8H PRN PRN PRN Reason: Pain 1-12/18 Last Admin: 03/05/19 06:39 Dose: 50 mg Documented by: - Past Medical History Past Medical History (Chronic Problems): Chronic Problems Atrial fibrillation (Chronic) Supraventricular dysrhythmia (Chronic) Hyperlipidemia (Chronic) Seizure disorder (Chronic) HTN (hypertension) (Chronic) Anemia of chronic disease (Chronic) Cardiomyopathy (Chronic) CHF (congestive heart failure) (Chronic) ESRD (end stage renal disease) on dialysis (Chronic) - Past Surgical History Surgical History: pacemaker implantation, - - prosthetic right eye, Rt upper arm AVF, right adrenal gland removal for unknown reason - Social History Smoking Status: Current every day smoker Alcohol: None Drugs: None - Family History Maternal History Items: Diabetes Paternal History Items: Heart Disease - Physical Exam Vitals/I&O's: Vital Signs Temp Pulse Resp BP Pulse Ox 97.7 F L 82 16 151/78 H 96 03/05/19 10:45 03/05/19 14:59 03/05/19 11:18 03/05/19 10:45 03/05/19 10:45 Oxygen Delivery Method Room Air Weight: 72.9 kg Body Mass Index (BMI) 23.7 Finger Stick Blood Glucose 95 Intake and Output for Last 24 Hours 03/03/19 03/04/19 03/05/19 23:59 23:59 23:59 Intake Total 240 / 240 Balance 240 / 240 General: Alert, Oriented x3 HEENT: Atraumatic Oral: Moist Mucosa Neck: Supple, No JVD Lungs: Clear to auscultation, Normal air movement, No rhonchi Cardiovascular: Regular rate, Regular Rhythm, Normal S1, Normal S2 Abdomen: Bowel Sounds Present, Soft, Non Tender Extremities: No clubbing, No cyanosis, No edema Skin: No rashes Musculoskeletal: No Tenderness to Palpation of Joints or Extremities Lymphatic: No Cervical, Supraclavicular, or Inguinal Adenopathy Neurological: Cranial nerves II-XII grossly intact, Neuro grossly intact Psych/Mental Status: Appropriate Microbiology Past 72 Hours 03/05/19 06:47 Stool C. difficile DNA Amplification - Final Laboratory Results 03/05/19 05:55: B-Natriuretic Peptide 4590.6 H 03/05/19 05:55: Troponin I 0.016 03/05/19 12:15: Troponin I 0.019 03/05/19 15:15: Troponin I Pending Current Medications Acetaminophen (Tylenol) 650 mg PO Q6H PRN PRN PRN Reason: Pain Score 1-3/Temp > 100.7 F Last Admin: 03/05/19 08:30 Dose: 650 mg Documented by: Albuterol Sulfate (Ventolin Aerosols) 2.5 mg INHALATION Q4H PRN PRN PRN Reason: Shortness of breath, wheezing. Last Admin: 03/05/19 15:19 Dose: 2.5 mg Documented by: [facility]) [facility] Last Admin: 03/05/19 08:31 Dose: 100 mg Documented by: Atorvastatin Calcium (Lipitor) 10 mg PO QHS [facility] Calcium Acetate (Phoslo Gel Cap) 1,334 mg PO TIDCM [facility] Last Admin: 03/05/19 12:26 Dose: 1,334 mg Documented by: Carvedilol (Coreg) 12.5 mg PO BID [facility] Diphenhydramine HCl (Benadryl) 75 mg PO TID PRN PRN PRN Reason: ITCHING Furosemide (Lasix) 40 mg IV Q8 [facility] Last Admin: 03/05/19 06:39 Dose: 40 mg Documented by: Heparin Sodium (Porcine) (Heparin Na) 5,000 unit SC Q12 [facility] Last Admin: 03/05/19 08:31 Dose: 5,000 unit Documented by: Hydroxyzine Pamoate (Vistaril Pamoate Capsule) 25 mg PO Q8H PRN PRN PRN Reason: ANXIETY Sodium Chloride () 250 mls @ 15 mls/hr IV .[id number] PRN PRN Reason: Saline Flush Sodium Chloride () 250 mls @ 15 mls/hr IV .[id number] PRN PRN Reason: Additional IVPB Infusion Levetiracetam (Keppra Tablet) 500 mg PO DAILY [facility] Last Admin: 03/05/19 08:32 Dose: 500 mg Documented by: Lisinopril (Zestril) 2.5 mg PO DAILY [facility] Loperamide HCl (Imodium) 2 mg PO Q2H PRN PRN PRN Reason: Diarrhea Last Admin: 03/05/19 12:26 Dose: 2 mg Documented by: Melatonin (Melatonin) 5 mg PO QHS [facility] Ondansetron HCl (Zofran) 4 mg IV Q8H PRN PRN PRN Reason: NAUSEA/VOMITING Sodium Chloride () 10 - 40 ml IV UD PRN PRN Reason: SALINE FLUSH Last Admin: 03/05/19 06:40 Dose: 20 ml Documented by: Tamsulosin HCl (Flomax) 0.4 mg PO DAILY [facility] Last Admin: 03/05/19 08:31 Dose: 0.4 mg Documented by: Tramadol HCl (Ultram) 50 mg PO Q8H PRN PRN PRN Reason: Pain 1-12/18 Last Admin: 03/05/19 06:39 Dose: 50 mg Documented by: Assessment/Plan All Active Problems Acute on chronic congestive heart failure (Acute) 1- ESRD on MWF. HD session was arrange for today for fluid removal. Pt was seen during HD session: BQ 400 DQ 700 UF 3L 2- CHF: respiratory status improved with UF 3- Anemia: Pt received 4400 U of Epo today with HD session
--- NOTE | 2019-03-05 17:05 | DIALYSIS ---
HD X 3 HRS PT INSISTED ON COMING OFF 1/2 HR EARLY TO GO TO THE RESTROOM. UF-2500ML TOLERATED WELL. [facility] LEONA NUNEZ
[2019-03-05] MEDS: Lisinopril 2.5 MG Tablet PO (17:06)
--- NOTE | 2019-03-05 17:41 | NURSING ---
Spoke with patient's brother Rasta on the phone. Requested that he come picket [employer] the patient this evening. He was agreeable. Rasta asked what Hai can do to avoid frequent readmissions for shortness of breath. Education provided on compliance with medications, fluid restrictions, and dialysis. Rasta expressed understanding and appreciation.
== END 2019-03-05 18:23 | disposition home or self-care (01) | DRG 291 ==
PROVIDERS: Admitting Provider Hospitalist; Family Provider Internal Medicine; PCP Internal Medicine; Visit Provider Internal Medicine
DX: I13.2 Hypertensive heart and chronic kidney disease with heart failure and with stage 5 chronic kidney disease, or end stage renal disease (principal); N18.6 End stage renal disease; I50.23 Acute on chronic systolic (congestive) heart failure; I48.20 Chronic atrial fibrillation, unspecified; Z99.2 Dependence on renal dialysis; G40.909 Epilepsy, unspecified, not intractable, without status epilepticus; E78.5 Hyperlipidemia, unspecified; D63.8 Anemia in other chronic diseases classified elsewhere; F17.210 Nicotine dependence, cigarettes, uncomplicated
CPT/HCPCS: 36415; 83880; 84484; 87493; 90937; 94640; 99251; 99406; A4216; G0257; G0463; J1940; Q5106

== ENCOUNTER 2019-05-13 09:14 | Emergency (ER) | payer MEDICARE, SELFPAY ==
[2019-03-05 04:30] VITALS: BMI 23.7
[2019-05-13 09:16] VITALS: BP 149/88; PULSE 66; RESP 17; TEMP 36.4; O2SAT 98; BMI 24.0
--- NOTE | 2019-05-13 09:25 | RAD_ITS ---
STUDY: X-RAY CHEST REASON FOR EXAM: Male, 58 years old. WAS AT DIALYSIS AND STARTED TO NOT FEEL WELL, 1 HOUR SHORT FROM FINISHING. PER THE TECH AT FACILITY PT WAS and quot; COMING IN AND OUT OF RESPONSIVENESS and quot;, PER EMS PT HAS BEEN A and amp; O BUT LETHARGIC TECHNIQUE: Single AP portable view of the chest. COMPARISON: Comparison is made with prior examination dated December 31, 2018. FINDINGS: EKG electrodes are seen. Surgical clips are seen within the soft tissues of the medial aspect of the right arm. The lungs are clear and expanded. There is no demonstrated pleural abnormality. There is borderline cardiomegaly. A left-sided dual-chamber pacemaker is seen. Normal mediastinum and anselmo. Normal visualized pulmonary arteries. Normal visualized aortic arch and descending thoracic aorta. There are diffuse degenerative changes of the visualized thoracic spine. 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 There is no demonstrated abnormality of the visualized soft tissue structures of the upper abdomen. RAD/Chest 1 View (Portable) IMPRESSION: Borderline cardiomegaly. No acute abnormality is seen. Electronically Signed: Russ Elias, at 9:54 EST , Service support ,
--- NOTE | 2019-05-13 09:25 | EKG12_ITS ---
Test Reason : GEN ILLNESS Blood Pressure : / mmHG Vent. Rate : 060 BPM Atrial Rate : 060 BPM P-R Int : 164 ms QRS Dur : 170 ms QT Int : 656 ms P-R-T Axes : 000 -41 132 degrees QTc Int : 656 ms AV dual-paced rhythm Abnormal ECG Confirmed by ABELARDO OJEDA ([id number]), rewrite editor LEVI ROSE ([id number]) on 05/13/2019 4:12:06 PM Referred By: AIXA Confirmed By:ABELARDO OJEDA
--- NOTE | 2019-05-13 09:26 | ED.VIS.GEN ---
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 He had a bowel movement and ate. He went to dialysis and was about 15 minutes from finishing his treatment when he began to feel very hot. He states that he was not experiencing any chest pain shortness of breath abdominal pain. He states he got very weak. Dialysis staff told EMS that he was in and out of consciousness. Upon EMS arrival he was ANO x3. He had stable vital signs. Currently he states that he feels weak about how he would typically feel after dialysis. Prehospital EKG demonstrates a paced rhythm Patient has a history of dilated cardiomyopathy of multifactorial etiology. Last ejection fraction was 10% and he has subsequently underwent a biventricular pacemaker. He does make some urine about once a day. He does smoke. Past Medical History - Allergies and Home Meds Allergies/Adverse Reactions: Allergies Penicillins Allergy (Verified 05/13/19 09:15) Unknown sulfamethoxazole [From Bactrim] Allergy (Verified 05/13/19 09:15) Swelling trimethoprim [From Bactrim] Allergy (Verified 05/13/19 09:15) Swelling Primary Care Physician: Aman Cabral MD [Primary Care Provider] - Surgical History: pacemaker implantation, - - prosthetic right eye, Rt upper arm AVF, right adrenal gland removal for unknown reason Smoking Status: Light Smoker (<10/day) - Family History Maternal Family History: Reports: Diabetes Paternal Family History: Reports: Heart Disease Review of Systems General: Reports: Malaise. Denies: Chills, Fever, Sweats Eyes: Denies: Visual changes - bilaterally, Diplopia ENT: Denies: Rhinorrhea, Sore throat Cardiovascular: Denies: Chest pain, Palpitations Respiratory: Denies: Dyspnea, Cough, Dyspnea on exertion Gastrointestinal: Denies: Abdominal pain, Nausea, Vomiting, Diarrhea, Melena, Hematochezia Genitourinary: Denies: Dysuria, Hematuria, Frequency Musculoskeletal: Denies: Back pain, Extremity Pain Skin: Denies: Rash, Wounds Neurological: Denies: Headache, Weakness, Numbness Physical Exam Vital Signs/Narrative: Vital Signs Temp Pulse Resp BP Pulse Ox 05/13/19 09:16 97.6 F L 66 17 149/88 H 98 Inital Vital Signs reviewed: Yes General: Well nourished, Well developed, No Acute Distress, - - Patient appears tired but not in any distress Head: Normocephalic, Atraumatic Eyes: Perrl, EOMI ENT: Moist mucous membranes, No rhinorrhea Neck: Supple, Nontender Cardiovascular: Regular rate, Regular rhythm, No murmurs Respiratory: No distress, CTA bilaterally, Chest nontender Abdomen: Soft, Nontender, Nondistended, Normal bowel sounds Back: Nontender, Normal Inspection Extremities: Nontender, No edema Skin: Normal color, No rash Neurological: Alert, Oriented x3, Cranial nerves II-XII grossly intact, Normal Strength, Normal Sensation Psychological: Normal affect, Normal Mood Diagnostic/Tx/Re-eval - Medical Decision Making Really show anything acute. Chest x-ray is negative. His EKG is paced. He is observed on the monitor is had no events. He is feeling good and would like to be discharged. I think most likely the patient was experiencing some fluid shifts resulting in a near syncopal episode. Patient will be discharged home with instructions to follow-up return if worsening or concerns ED Disposition - Plan for ED Patient: Disposition: Home or Assisted Living Diagnosis: Near syncope Instructions: NEAR SYNCOPE, Unknown Referrals: Aman Cabral MD [Primary Care Provider] - 1 Week
[2019-05-13 10:20] LABS: Absolute Lymphocyte Count 1.35 X10^3/uL (0.83-4.51); Basophil# 0.07 X10^3/uL; Basophil% 1.4 % (0-1); Eosinophil# 0.25 X10^3/uL; Eosinophils% 4.9 % (0-5); Hematocrit 31.9 % (40-54); Hemoglobin 10.6 g/dL (13.0-16.5); Lymphocyte # 1.35 X10^3/ul (4.0); Lymphocyte % 26.2 % (19-41); Mean Corp Hgb Conc 33.2 g/dL (32-36); Mean Corpuscular Hgb 29.2 pg (27.0-32.0); Mean Corpuscular Volume 87.9 fL (80-94); Mean Platelet Vol. 9.7 fl (6.2-12.0); Monocyte# 0.45 X10^3/uL; Monocyte% 8.7 % (0-10); NRBC Flagged by Analyzer 0 % (0-5); Neutrophil # 2.98 X10^3/uL (2.7-7.7); Neutrophil % 57.8 % (47-70); Platelet Count 158 K/mm3 (150-450); RBC Distribution Width CV 15.1 % (11.6-14.6); RBC Distribution Width SD 48.2 fl (35.1-43.9); Red Blood Count 3.63 M/mm3 (4.6-6.2); White Blood Count 5.2 K/mm3 (4.4-11.0)
[2019-05-13 10:38] LABS: ALB/GLOB Ratio 0.5 RATIO (0.9-2.4); AST(SGOT) 17 U/L (15-37); Alanine Aminotransfer ALT/SGPT 17 U/L (16-61); Albumin, Serum 2.9 g/dL (3.2-5.0); Alkaline Phosphatase 108 U/L (45-117); Anion Gap 6 (5-15); BUN 44 mg/dL (7-18); BUN/Creat Ratio 6.7 RATIO (10-20); Calcium,Total 9.1 mg/dL (8.5-10.1); Chloride 99 mmol/L (98-107); Creatinine, Serum 6.55 mg/dL (0.70-1.30); EST Glomerular Filtration Rate 9 mL/min (>60); Est Glom Filt Rate - Afr Amer 11 mL/min (>60); Estimated Creatinine Clearance 12.14 ml/min; Globulin 5.5 g/dL (2.2-4.2); Glucose 97 mg/dL (74-106); Potassium 3.5 mmol/L (3.5-5.1); Protein, Total 8.4 g/dL (6.4-8.2); Sodium Level 137 mmol/L (136-145)
[2019-05-13 11:45] VITALS: BP 147/71; PULSE 64; RESP 17; O2SAT 97
== END 2019-05-13 11:48 | disposition home or self-care (01) ==
PROVIDERS: Emergency Provider Emergency Medicine; PCP Internal Medicine
DX: R55 Syncope and collapse (principal); I42.0 Dilated cardiomyopathy; F17.200 Nicotine dependence, unspecified, uncomplicated; Z95.0 Presence of cardiac pacemaker; Z99.2 Dependence on renal dialysis
CPT/HCPCS: 71045; 80053; 84484; 85025; 93005; 99285; J7030; A4216

== ENCOUNTER 2019-07-08 15:09 | Emergency (ER) | payer MEDICARE, MEDICAID, SELFPAY ==
[2019-07-08 15:11] VITALS: BP 152/83; PULSE 73; RESP 18; TEMP 36.9; O2SAT 96; BMI 24.9
[2019-07-08 15:21] VITALS: O2SAT 98
--- NOTE | 2019-07-08 15:28 | EKG12_ITS ---
Test Reason : CP Blood Pressure : / mmHG Vent. Rate : 071 BPM Atrial Rate : 071 BPM P-R Int : 172 ms QRS Dur : 142 ms QT Int : 566 ms P-R-T Axes : 055 059 207 degrees QTc Int : 615 ms Atrial-sensed ventricular-paced rhythm Abnormal ECG Confirmed by RUBIO DINH, MIRIAM ([id number]), marketing editor LEVI ROSE ([id number]) on 07/13/2019 2:16:06 PM Referred By: YESY/VASU Confirmed By:MIRIAM BERGERON MD
--- NOTE | 2019-07-08 15:45 | RAD_ITS ---
STUDY: X-RAY CHEST REASON FOR EXAM: Male, 58 years old. Shortness of breath starting today, dialysis patient TECHNIQUE: Single AP portable view of the chest. COMPARISON: Comparison is made with prior examination dated May 13, 2019. FINDINGS: EKG electrodes are seen. A dual-chamber pacemaker is seen. The lungs are clear and expanded. There is no demonstrated pleural abnormality. There is moderate cardiac enlargement. Normal mediastinum and anselmo. Normal visualized pulmonary arteries. Normal visualized aortic arch and descending thoracic aorta. There are degenerative changes of the visualized thoracic spine. There is degenerative osteoarthritis of the bilateral shoulders. There is no demonstrated abnormality of the visualized soft tissue structures of the upper abdomen. RAD/Chest 1 View (Portable) IMPRESSION: Moderate cardiomegaly. Electronically Signed: Russ Elias, at 16:16 EDT , Service support ,
[2019-07-08 15:54] LABS: Absolute Lymphocyte Count 1.44 X10^3/uL (0.83-4.51); Absolute Neutrophil Count 1.5 X10^3/uL (2.0-7.7); Anion Gap 5 (5-15); BUN 21 mg/dL (7-18); Basophil# 0.04 X10^3/uL; Basophil% 1.1 % (0-1); Chloride 97 mmol/L (98-107); Creatinine, Serum 6.92 mg/dL (0.70-1.30); EST Glomerular Filtration Rate 9 mL/min (>60); Eosinophil# 0.17 X10^3/uL; Eosinophils% 4.8 % (0-5); Est Glom Filt Rate - Afr Amer 11 mL/min (>60); Estimated Creatinine Clearance 11.49 ml/min; Glucose 133 mg/dL (74-106); Hematocrit 33.2 % (40-54); Hemoglobin 10.6 g/dL (13.0-16.5); Lymphocyte # 1.44 X10^3/ul (4.0); Lymphocyte % 40.6 % (19-41); Mean Corp Hgb Conc 31.9 g/dL (32-36); Mean Corpuscular Hgb 29.8 pg (27.0-32.0); Mean Corpuscular Volume 93.3 fL (80-94); Monocyte# 0.39 X10^3/uL; NRBC Flagged by Analyzer 0 % (0-5); Neutrophil % 42.2 % (47-70); Platelet Count 128 K/mm3 (150-450); Potassium 3.7 mmol/L (3.5-5.1); RBC Distribution Width CV 15.8 % (11.6-14.6); RBC Distribution Width SD 54.2 fl (35.1-43.9); Red Blood Count 3.56 M/mm3 (4.6-6.2); Sodium Level 138 mmol/L (136-145); White Blood Count 3.6 K/mm3 (4.4-11.0)
--- NOTE | 2019-07-08 17:04 | ED.VIS.GEN ---
History of Present Illness Chief Complaint: Shortness of Breath Informant: Patient Onset: Today Narrative: Presents from dialysis for transient dyspnea and transient chills. [place] well before dialysis, states did finish dialysis however 30 minutes prior felt mild shortness of breath and chills, this resolved prior to arrival. No fevers or cough, no vomiting or diarrhea. He is oliguric barely makes 1 urine a day. No chest pains or abdominal pain. No complaints at this time. Prior similar symptoms: No Past Medical History - Allergies and Home Meds Allergies/Adverse Reactions: Allergies Penicillins Allergy (Verified 07/08/19 15:10) Unknown sulfamethoxazole [From Bactrim] Allergy (Verified 07/08/19 15:10) Swelling trimethoprim [From Bactrim] Allergy (Verified 07/08/19 15:10) Swelling Primary Care Physician: Aman Cabral MD [Primary Care Provider] - Past Medical History: - - Paroxysmal atrial fibrillation, CHF, hypertension, hypercholesterolemia, end-stage renal disease on dialysis, seizure disorder Surgical History: pacemaker implantation, - - prosthetic right eye, Rt upper arm AVF, right adrenal gland removal for unknown reason Smoking Status: Current some day smoker - Family History Maternal Family History: Reports: Diabetes Paternal Family History: Reports: Heart Disease Review of Systems General: Denies: Chills, Fever, Sweats Eyes: Denies: Visual changes - bilaterally, Diplopia ENT: Denies: Rhinorrhea, Sore throat Cardiovascular: Denies: Chest pain, Palpitations Respiratory: Reports: Dyspnea. Denies: Cough, Dyspnea on exertion Gastrointestinal: Denies: Abdominal pain, Nausea, Vomiting, Diarrhea, Melena, Hematochezia Genitourinary: Denies: Dysuria, Hematuria, Frequency Musculoskeletal: Denies: Back pain, Extremity Pain Skin: Denies: Rash, Wounds Neurological: Denies: Headache, Weakness, Numbness Physical Exam Vital Signs/Narrative: Vital Signs Temp Pulse Resp BP Pulse Ox 07/08/19 15:11 98.5 F 73 18 152/83 H 96 General: Well nourished, Well developed, No Acute Distress Head: Normocephalic, Atraumatic Eyes: Perrl, EOMI ENT: Moist mucous membranes, No rhinorrhea Neck: Supple, Nontender Cardiovascular: Regular rate, Regular rhythm, No murmurs Respiratory: No distress, CTA bilaterally, Chest nontender Abdomen: Soft, Nontender, Nondistended, Normal bowel sounds Back: Nontender, Normal Inspection Extremities: Nontender, No edema, - - Right upper extremity fistula with a positive thrill, clean, dry, intact. Skin: Normal color, No rash Neurological: Alert, Oriented x3, Cranial nerves II-XII grossly intact, Normal Strength, Normal Sensation Psychological: Normal affect, Normal Mood Diagnostic/Tx/Re-eval Clinical Impression(s) from Imaging Studies Chest X-Ray 07/08/19 15:45 IMPRESSION: Moderate cardiomegaly. Electronically Signed: Russ Elias, at 16:16 EDT , Service support , Abnormal Lab Results 07/08/19 07/08/19 15:23 15:23 WBC 3.6 L RBC 3.56 L Hgb 10.6 L Hct 33.2 L MCV 93.3 MCH 29.8 MCHC 31.9 L RDW Std Deviation 54.2 H RDW Coeff of Dharmesh 15.8 H Plt Count 128 L MPV 10.0 Immature Gran % (Auto) 0.300 Neut % (Auto) 42.2 L Lymph % (Auto) 40.6 [place] % (Auto) 11.0 H Eos % (Auto) 4.8 Baso % (Auto) 1.1 H Absolute Neuts (auto) 1.5 L Absolute Lymphs (auto) 1.44 Nucleated RBC % 0 Sodium 138 Potassium 3.7 Chloride 97 L Carbon Dioxide 36.0 H Anion Gap 5 BUN 21 H Creatinine 6.92 H Estim Creat Clear Calc 11.49 Est GFR (MDRD) Af Amer 11 L Est GFR (MDRD) Non-Af 9 L BUN/Creatinine Ratio 3.0 L Glucose 133 H Calcium 8.0 L - Medical Decision Making Patient vital signs stable, nontoxic, no acute distress. Currently asymptomatic. Chest x-ray with no acute process labs are stable with chronic findings. Reevaluation remains stable his pulse ox is stable, discuss with patient possible early viral syndrome with his symptoms, discussed with COVID pandemic, to monitor any worsening symptoms to return for reevaluation. Patient understands agrees with plan. ED Disposition - Plan for ED Patient: Disposition: Home or Assisted Living Diagnosis: Dyspnea, ESRD (end stage renal disease) on dialysis Instructions: ED Dyspnea Referrals: Aman Cabral MD [Primary Care Provider] - 3-5 Days if not improving
[2019-07-08 17:30] VITALS: BP 157/65; PULSE 82; RESP 22; O2SAT 97
--- NOTE | 2019-07-08 17:30 | ED.RN ---
THIS NURSE REVIEWED D/C INSTRUCTIONS WITH PT. PT VERBALIZED UNDERSTANDING OF INSTRUCTIONS. IV D/C. IV CATHETER INTACT. PT TOLERATED WELL. PT REQUESTING A RIDE HOME. PT STATES YOU HAVE TO FIND ME A RIDE. I TOLD THAT OTHER NURSE WHEN I GOT HERE, HE HAD TO FIND ME A RIGHT HOME. PT INFORMED THAT THE [facility] ARE NOT RUNNING AT THIS TIME. PT STATES I TOLD YOU BEFORE THEY STOPPED RUNNING THAT I NEEDED A RIDE HOME. THIS NURSE INFORMED THE PATIENT THAT THE [facility] CAN NOT STAY PAST THEIR SCHEDULED TIME TO TAKE HIM HOME AT 1730 IN THE EVENING. PT STATES I WILL JUST GET [facility] OF MY [id number] THEN
== END 2019-07-08 17:34 | disposition home or self-care (01) ==
PROVIDERS: Emergency Provider Emergency Medicine; PCP Internal Medicine
DX: R06.02 Shortness of breath (principal); I13.2 Hypertensive heart and chronic kidney disease with heart failure and with stage 5 chronic kidney disease, or end stage renal disease; I50.9 Heart failure, unspecified; N18.6 End stage renal disease; I48.0 Paroxysmal atrial fibrillation; E78.00 Pure hypercholesterolemia, unspecified; F17.200 Nicotine dependence, unspecified, uncomplicated; Z99.2 Dependence on renal dialysis; Z95.0 Presence of cardiac pacemaker
CPT/HCPCS: 71045; 80048; 85025; 93005; 99284

== ENCOUNTER 2019-07-30 04:00 | Emergency (ER) | payer MEDICARE, MEDICAID, SELFPAY ==
[2019-07-30 04:08] VITALS: BP 181/92; RESP 26; TEMP 36.4; O2SAT 100; BMI 24.0
--- NOTE | 2019-07-30 04:12 | CT_ITS ---
STUDY: CT ABDOMEN AND PELVIS WITHOUT CONTRAST REASON FOR EXAM: Male, 58 years old. ABD PAIN, SOB AFTER DIALYSIS X 1 WK, N/V, SZ, HTN,COPD, CARDIOMYOPATHY, SURG-ADRENAL GLAND SURG RADIATION DOSAGE (If Supplied By Facility): CTDIvol = ( 6. ) mGy, DLP = ( ) mGycm TECHNIQUE: Transaxial images were obtained from the dome of the diaphragm to the symphysis pubis without oral contrast, and without intravenous contrast. Sagittal and coronal images were reconstructed. Individualized dose optimization techniques were used for this CT. COMPARISON: July 01, 2017. FINDINGS: Evaluation is limited by the lack of IV and oral contrast material. Cardiomegaly. Partial visualization cardiac pacemaker leads. Right lower lobe 7 mm nodule. Similar to prior study. There is groundglass opacities in the lungs. There is some bronchiectasis within the left lower lobe. There is atelectasis and scarring present. Small right pleural effusion. There is hepatomegaly with diffuse hepatic enlargement. Normal gallbladder and extrahepatic biliary system. Normal spleen. Surgical clips within the region of the distal pancreas. There is no significant pancreatic ductal dilatation identified. Otherwise grossly unremarkable unenhanced pancreas. Surgical clips within the region of the left adrenal gland and distal pancreas correlate with prior surgical history. (Again noted right renal atrophy with cystic formation. Cystic changes within the left kidney again noted measuring up to 1.4 cm. Again noted mass lesion within the inferior pole the left kidney measuring 3.5 cm x 4.2 which is incompletely characterized on this noncontrast enhanced study. There is a small hiatal hernia. No dilated loops of bowel by CT criteria. Evaluation of the bowel is limited by lack of IV and oral contrast. There is some stranding within the mesentery. There is thickening involving the ascending and transverse colon. There are multiple colonic diverticula consistent with diverticulosis. The appendix is visualized and appears normal. There is diffuse atherosclerotic calcification of the abdominal aorta, without a demonstrated aneurysm. Cannot evaluate for dissection due to the lack of IV contrast. Nonspecific subcentimeter short axis mesenteric and retroperitoneal lymph nodes. The urinary bladder is decompressed with wall thickening. There is minimal adjacent stranding. The prostate appears enlarged. Recommend correlation with PSA values and physical exam on a nonemergent basis. Calcifications, nonspecific inguinal canal bilaterally. There are diffuse degenerative changes of the visualized lumbar spine. 4 mm retrolisthesis L5 on S1. Severe L5-S1 neural foraminal narrowing. Severe left L3-L4 neural foraminal narrowing. Reactive changes of the bilateral hips with cystic formation. Chondrocalcinosis of the symphysis pubis. CT/Abdomen/Pelvis without Cont IMPRESSION: No CT evidence for acute diverticulitis or appendicitis. There is some thickening involving portions of the ascending and transverse colon which may represent colitis. Evaluation of bowel is limited by lack of contrast. There is a small right pleural effusion present. There is groundglass opacities within the lungs which are nonspecific. This may represent infectious inflammatory process or edema in the appropriate clinical setting. An atypical viral infectious process cannot be excluded. Cardiomegaly. Evidence of prior abdominal surgery. Again noted left renal mass. A neoplastic process cannot be totally excluded. This does appear similar to prior examination July 01, 2017. However evaluation is limited due to the lack of IV contrast. Correlate with any prior contrast enhanced study. Ultrasound could be performed to further evaluate. No hydronephrosis or nephrolithiasis identified. There is atrophy of the left kidney. There is severe atrophy of the right kidney with only a small amount of renal tissue identified with cystic changes. Right lung base pulmonary nodule similar to prior study. Enlarged prostate. The bladder is decompressed however there is mild bladder wall thickening with adjacent mild stranding. Correlate with urinalysis to exclude cystitis. Again noted increased vascularity within the pelvis incompletely characterized on this noncontrast enhanced study. Other findings as above. Electronically Signed: Omar Vasquez, at 6:33 EDT Tel , Service support ,
[2019-07-30 04:14] VITALS: PULSE 66
--- NOTE | 2019-07-30 04:14 | ED.DCSUM_ITS ---
History of Present Illness Chief Complaint: Nausea/Vomiting Informant: Patient Onset: Weeks - 1 Context: Gradual Onset - seems to occur after dialysis sessions Timing: Intermittent Quality: nausea, vomiting, and shortness of breath Location: abd pain in upper abd Current Severity: Moderate Maximum Severity: Moderate Worsened by: eating/drinking Relieved by: nothing/unknown Associated Symptoms: Diarrhea after dialysis Narrative: Patient is an extremely poor historian, and gives alternating answers to the same question asked several times. From what I can tell, for the last week he has been having nausea and vomiting along with feeling dyspneic after dialysis sessions. His last one was this past day, he has been feeling like this ever since so he presents at about 4 AM with similar symptoms of nausea, vomiting, upper abdominal pain, and feeling short of breath. He admits he is feeling short of breath because of all the discomfort in his abdomen. He does not have any cough, chest discomfort, fevers. No leg swelling. He has an AV fistula in his right upper extremity. He states he has an irregular heartbeat, has no idea what it is called, has no idea if he is on a blood thinner or not. He does not know his medications. States he has been trying to take them except for all of the vomiting lately. He denies any syncope. He has a pacemaker but does not know of any other heart disease other than his irregular heartbeat. If asked if he has any lung history he says no, but then he admits to having COPD. - Past Medical History (1) Anemia of chronic disease Status: Chronic (2) Atrial fibrillation Status: Chronic (3) CHF (congestive heart failure) Status: Chronic (4) Cardiomyopathy Status: Chronic (5) ESRD (end stage renal disease) on dialysis Status: Chronic (6) HTN (hypertension) Status: Chronic (7) Hyperlipidemia Status: Chronic (8) Seizure disorder Status: Chronic (9) Supraventricular dysrhythmia Status: Chronic Past Medical History - Allergies and Home Meds Allergies/Adverse Reactions: Allergies Penicillins Allergy (Verified 07/08/19 15:10) Unknown sulfamethoxazole [From Bactrim] Allergy (Verified 07/08/19 15:10) Swelling trimethoprim [From Bactrim] Allergy (Verified 07/08/19 15:10) Swelling Primary Care Physician: Aman Cabral MD [Primary Care Provider] - Surgical History: pacemaker implantation, - - prosthetic right eye, Rt upper arm AVF, right adrenal gland removal for unknown reason Lives: Alone Smoking Status: Current some day smoker - Family History Maternal Family History: Reports: Diabetes Paternal Family History: Reports: Heart Disease Review of Systems General: Reports: Malaise. Denies: Chills, Fever, Sweats Eyes: Denies: Visual changes - bilaterally, Diplopia ENT: Denies: Rhinorrhea, Sore throat Cardiovascular: Denies: Chest pain, Palpitations Respiratory: Reports: Dyspnea. Denies: Cough, Sputum, Dyspnea on exertion, Orthopnea Gastrointestinal: Reports: Abdominal pain, Nausea, Vomiting, Diarrhea. Denies: Melena, Hematochezia Genitourinary: Reports: - - oliguric. Denies: Dysuria, Hematuria Musculoskeletal: Denies: Myalgias, Neck pain, Back pain, Swelling, Extremity Pain Skin: Denies: Rash, Wounds Neurological: Denies: Headache, Weakness, Numbness Physical Exam Vital Signs/Narrative: Vital Signs Temp Resp BP Pulse Ox 07/30/19 04:08 97.5 F L 26 H 181/92 H 100 Inital Vital Signs reviewed: Yes General: Well nourished, Well developed, Acute Distress - seems uncomfortable, - - thin Head: Normocephalic, Atraumatic Eyes: Perrl, EOMI ENT: Moist mucous membranes, No rhinorrhea Neck: Supple, Nontender Cardiovascular: Regular rate, Regular rhythm, No murmurs. Negative for: Tachycardia Respiratory: No distress - but +tachypneic, CTA bilaterally, Chest nontender Abdomen: Soft, Nondistended, Tender - Across upper abdomen with voluntary guarding, Guarding, Hypoactive bowel sounds. Negative for: Rebound tenderness Back: Nontender, Normal Inspection. Negative for: CVA tenderness Extremities: Nontender, No edema, - - Good thrill right upper arm AV fistula, no sign of infection. Negative for: Calf Tenderness Skin: Normal color, No rash, No Trauma Neurological: Alert, Oriented x3, Cranial nerves II-XII grossly intact, Normal Strength, Normal Sensation Psychological: Normal Mood, - - Anxious Diagnostic/Tx/Re-eval Impressions Abdomen/Pelvis CT 07/30/19 04:12 IMPRESSION: No CT evidence for acute diverticulitis or appendicitis. There is some thickening involving portions of the ascending and transverse colon which may represent colitis. Evaluation of bowel is limited by lack of contrast. There is a small right pleural effusion present. There is groundglass opacities within the lungs which are nonspecific. This may represent infectious inflammatory process or edema in the appropriate clinical setting. An atypical viral infectious process cannot be excluded. Cardiomegaly. Evidence of prior abdominal surgery. Again noted left renal mass. A neoplastic process cannot be totally excluded. This does appear similar to prior examination July 01, 2017. However evaluation is limited due to the lack of IV contrast. Correlate with any prior contrast enhanced study. Ultrasound could be performed to further evaluate. No hydronephrosis or nephrolithiasis identified. There is atrophy of the left kidney. There is severe atrophy of the right kidney with only a small amount of renal tissue identified with cystic changes. Right lung base pulmonary nodule similar to prior study. Enlarged prostate. The bladder is decompressed however there is mild bladder wall thickening with adjacent mild stranding. Correlate with urinalysis to exclude cystitis. Again noted increased vascularity within the pelvis incompletely characterized on this noncontrast enhanced study. Other findings as above. Electronically Signed: Omar Vasquez, at 6:33 EDT Tel , Service support , Chest X-Ray 07/30/19 05:40 IMPRESSION: Cardiomegaly. Increased interstitial markings. This may represent edema however atypical viral infectious process cannot be totally excluded. No focal consolidation identified. Electronically Signed: Omar Vasquez, at 6:11 EDT Tel , Service support , 07/30/19 04:12 Abdomen/Pelvis without Cont [CT] Stat 07/30/19 05:40 Chest 1 View (Portable) [RAD] Stat Laboratory Results 07/30/19 07/30/19 05:59 05:59 WBC 4.5 RBC 3.18 L Hgb 9.8 L Hct 29.7 L MCV 93.4 MCH 30.8 MCHC 33.0 RDW Std Deviation 47.5 H RDW Coeff of Dharmesh 13.8 Plt Count 130 L MPV 10.8 Immature Gran % (Auto) 0.400 Neut % (Auto) 67.8 Lymph % (Auto) 18.8 L [place] % (Auto) 9.7 Eos % (Auto) 2.4 Baso % (Auto) 0.9 Absolute Neuts (auto) 3.1 Absolute Lymphs (auto) 0.85 Nucleated RBC % 0 Sodium 138 Potassium 3.8 Chloride 97 L Carbon Dioxide 31.0 Anion Gap 10 BUN 28 H Creatinine 8.87 H* Estim Creat Clear Calc 8.97 Est GFR (MDRD) Af Amer 8 L Est GFR (MDRD) Non-Af 7 L BUN/Creatinine Ratio 3.2 L Glucose 94 Calcium 7.7 L Total Bilirubin 1.10 H AST 10 L ALT 14 L Alkaline Phosphatase 86 Troponin I 0.022 Total Protein 7.2 Albumin 2.9 L Globulin 4.3 H Albumin/Globulin Ratio 0.7 L Lipase 125 - Rhythm Strip Rhythm Strip: Sinus Rhythm Rate: 61 Ectopy: None - EKG Initial EKG Interpretation: No Acute Injury Pattern, Paced - vent pace/capture Prior: Unchanged - Medical Decision Making Chest x-ray appears to show chronic changes in the lungs without any acute abnormality, after the patient was treated with Zofran and morphine, his nausea and pain were improved although he was still having upper abdominal pain, and he no longer appeared to be dyspneic. Work-up is as above. He is oliguric and rarely urinates, so urinalysis was canceled as he was not able to go. The labs are unremarkable. The CT showed many incidental findings as above. After GI cocktail, the patient states his pain is resolved. Therefore, my suspicion is that he does not have colitis, and it may be simple gastritis that is causing his symptoms this morning. When asked if he is on medicine for reflux, he says no. Will prescribe him a PPI and Phenergan and advised that he follow-up closely as an outpatient. Procedures Procedure(s): Femoral venipuncture -- Verbal consent obtained after multiple attempts from nurses and lab learning disabilities resource teacher were unsuccessful in obtaining blood sample for lab testing. Under ultrasound guidance, visualizing the right femoral vein medial to the femoral artery, and after chlorhexidine prep, I directed a 21-gauge needle into the right femoral vein, withdrawing 20 cc of blood, a bandage was placed afterwards with a short period of direct pressure. There were no complications and the patient tolerated it well. ED Disposition - Plan for ED Patient: Disposition: Home or Assisted Living Diagnosis: Acute gastritis without bleeding, ESRD (end stage renal disease) on dialysis Instructions: ED PEPTIC ULCER vs GASTRITIS Prescriptions: Omeprazole 1 cap PO DAILY #30 capsule.dr Transmission Status: Pending to [facility]/pharmacy #[id number] proMETHazine tablet [Phenergan] 25 mg PO Q6H PRN PRN #10 tab PRN Reason: Nausea Transmission Status: Pending to [facility]/pharmacy #[id number] Referrals: Aman Cabral MD [Primary Care Provider] - 1 Week if not improving
--- NOTE | 2019-07-30 04:14 | EKG12_ITS ---
Test Reason : NAUSEA/VOMITING Blood Pressure : / mmHG Vent. Rate : 061 BPM Atrial Rate : 061 BPM P-R Int : 138 ms QRS Dur : 150 ms QT Int : 686 ms P-R-T Axes : 053 091 144 degrees QTc Int : 690 ms Atrial-sensed ventricular-paced rhythm with frequent AV dual-paced complexes Abnormal ECG Confirmed by MODESTA DINH, MEHDI ([id number]), web editor LEVI ROSE ([id number]) on 08/04/2019 2:53:34 PM Referred By: HAYLEY Confirmed By:MEHDI BYERS MD
[2019-07-30] MEDS: 0.9% Normal Saline 1,000 ML 125 ML IV (04:36)
[2019-07-30] MEDS: Ondansetron 4 MG/2 ML Vial IV (04:37)
[2019-07-30] MEDS: Morphine 4 MG/ML Syringe IV (04:37)
--- NOTE | 2019-07-30 05:40 | RAD_ITS ---
STUDY: X-RAY CHEST REASON FOR EXAM: Male, 58 years old. Shortness of breath, nausea and vomiting TECHNIQUE: Single frontal view of the chest. COMPARISON: July 08, 2019. FINDINGS: No focal consolidation identified. No pneumothorax or pleural effusion. Bilateral right greater than left increased lung markings. Cardiomegaly. Left AICD. There are diffuse degenerative changes of the visualized thoracic spine. There is degenerative osteoarthritis of the bilateral shoulders. There is no demonstrated abnormality of the visualized soft tissue structures of the upper abdomen. RAD/Chest 1 View (Portable) IMPRESSION: Cardiomegaly. Increased interstitial markings. This may represent edema however atypical viral infectious process cannot be totally excluded. No focal consolidation identified. Electronically Signed: Omar Vasquez, at 6:11 EDT Tel , Service support ,
[2019-07-30] MEDS: proCHLORPERazine 10 MG/2 ML Vial 5 MG IV (05:55)
[2019-07-30 06:01] VITALS: BP 172/93; PULSE 67; RESP 18; TEMP 36.3; O2SAT 99
[2019-07-30] MEDS: Mag Hydrox/Al Hydrox/Simeth 30 ML UDC PO (06:08)
[2019-07-30 06:09] LABS: Absolute Lymphocyte Count 0.85 X10^3/uL (0.83-4.51); Absolute Neutrophil Count 3.1 X10^3/uL (2.0-7.7); Basophil# 0.04 X10^3/uL; Basophil% 0.9 % (0-1); Eosinophil# 0.11 X10^3/uL; Eosinophils% 2.4 % (0-5); Hematocrit 29.7 % (40-54); Hemoglobin 9.8 g/dL (13.0-16.5); Lymphocyte # 0.85 X10^3/ul (4.0); Lymphocyte % 18.8 % (19-41); Mean Corpuscular Hgb 30.8 pg (27.0-32.0); Mean Corpuscular Volume 93.4 fL (80-94); Mean Platelet Vol. 10.8 fl (6.2-12.0); Monocyte# 0.44 X10^3/uL; Monocyte% 9.7 % (0-10); NRBC Flagged by Analyzer 0 % (0-5); Neutrophil # 3.07 X10^3/uL (2.7-7.7); Neutrophil % 67.8 % (47-70); Platelet Count 130 K/mm3 (150-450); RBC Distribution Width CV 13.8 % (11.6-14.6); RBC Distribution Width SD 47.5 fl (35.1-43.9); Red Blood Count 3.18 M/mm3 (4.6-6.2); White Blood Count 4.5 K/mm3 (4.4-11.0)
[2019-07-30 06:32] LABS: ALB/GLOB Ratio 0.7 RATIO (0.9-2.4); AST(SGOT) 10 U/L (15-37); Alanine Aminotransfer ALT/SGPT 14 U/L (16-61); Albumin, Serum 2.9 g/dL (3.2-5.0); Alkaline Phosphatase 86 U/L (45-117); Anion Gap 10 (5-15); BUN 28 mg/dL (7-18); BUN/Creat Ratio 3.2 RATIO (10-20); Calcium,Total 7.7 mg/dL (8.5-10.1); Chloride 97 mmol/L (98-107); Creatinine, Serum 8.87 mg/dL (0.70-1.30); EST Glomerular Filtration Rate 7 mL/min (>60); Est Glom Filt Rate - Afr Amer 8 mL/min (>60); Estimated Creatinine Clearance 8.97 ml/min; Globulin 4.3 g/dL (2.2-4.2); Glucose 94 mg/dL (74-106); Lipase 125 U/L (73-393); Potassium 3.8 mmol/L (3.5-5.1); Protein, Total 7.2 g/dL (6.4-8.2); Sodium Level 138 mmol/L (136-145)
--- NOTE | 2019-07-30 07:17 | ED.RN ---
pt up for discharge and called brother to see if he could pick him up no answer.
[2019-07-30 08:33] VITALS: PULSE 75; RESP 12; O2SAT 97
[2019-07-30 09:18] VITALS: BP 148/73; PULSE 67; RESP 18; O2SAT 99
== END 2019-07-30 09:19 | disposition home or self-care (01) ==
PROVIDERS: Emergency Provider Emergency Medicine; PCP Internal Medicine
DX: K29.00 Acute gastritis without bleeding (principal); I13.2 Hypertensive heart and chronic kidney disease with heart failure and with stage 5 chronic kidney disease, or end stage renal disease; N18.6 End stage renal disease; Z99.2 Dependence on renal dialysis; F17.210 Nicotine dependence, cigarettes, uncomplicated; Z95.0 Presence of cardiac pacemaker
CPT/HCPCS: 71045; 74176; 80053; 83690; 84484; 85025; 93005; 96361; 96374; 96375; 99285; J7030; A4216; J2405

== ENCOUNTER 2019-08-03 03:08 | Emergency (ER) | payer MEDICARE, MEDICAID, SELFPAY ==
[2019-08-03 03:09] VITALS: BP 167/111; PULSE 90; RESP 24; TEMP 36.7; O2SAT 97; BMI 24.2
[2019-08-03 03:18] VITALS: BP 146/95; PULSE 74; RESP 24; O2SAT 98
[2019-08-03 03:24] VITALS: O2SAT 90
--- NOTE | 2019-08-03 03:39 | EKG12_ITS ---
Test Reason : SOB Blood Pressure : / mmHG Vent. Rate : 101 BPM Atrial Rate : 101 BPM P-R Int : 136 ms QRS Dur : 136 ms QT Int : 442 ms P-R-T Axes : 029 068 074 degrees QTc Int : 573 ms Suspect unspecified pacemaker failure Atrial-sensed ventricular-paced rhythm Abnormal ECG Confirmed by MODESTA DINH, MEHDI ([id number]), city editor LEVI ROSE ([id number]) on 08/04/2019 3:23:28 PM Referred By: BERNARDO Confirmed By:MEHDI BYERS MD
--- NOTE | 2019-08-03 03:39 | RAD_ITS ---
STUDY: X-RAY CHEST REASON FOR EXAM: Male, 58 years old. SOB TECHNIQUE: Frontal view COMPARISON: 07/30/2019 FINDINGS: Pacemaker leads are in proper position. Lungs are expanded. There are faint opacities bilaterally similar to prior study which could be lingering infiltrates. There is no demonstrated pleural abnormality. The heart is borderline enlarged. Normal mediastinum and anselmo. Normal visualized pulmonary arteries. Normal visualized aortic arch and descending thoracic aorta. Normal visualized thoracic spine. Normal visualized ribs, clavicles, and shoulders. There is no demonstrated abnormality of the visualized soft tissue structures of the upper abdomen. RAD/Chest 1 View (Portable) IMPRESSION: Pacemaker leads are in proper position. Lungs are expanded. There are faint opacities bilaterally similar to prior study which could be lingering infiltrates. There is no demonstrated pleural abnormality. The heart is borderline enlarged. Electronically Signed: Cj Palacios MD at 5:04 EDT , Service support ,
--- NOTE | 2019-08-03 03:40 | ED.DCSUM_ITS ---
- ER Visit Summary Date of Service: 08/03/19 Chief Complaint: Dyspnea and fatigue History of Present Illness: The patient is a 58 M: Non-smoker department. Has a history of end-stage renal disease dialysis. Hypertension, A. fib and anemia. Patient's last dialysis was Saturday states he had a full run. States he has some mild shortness of breath. Denies chest pain. Denies fever or chills. Denies nausea, vomiting or diarrhea. He still does make some urine. Physical Examination: Middle-aged male no acute distress vital signs are stable afebrile. He does not look septic or toxic. H EENT exam unremarkable. Neck nontender. No JVD. Lungs clear to auscultation bilaterally. Heart paced rhythm. Left chest wall is a pacer defibrillator. Abdomen soft nontender normal bowel sounds no peritoneal signs. Extremities moves all 4. Calves nontender no edema no cords. Right upper arm dialysis shunt has a good thrill. Neurologically is awake and alert with no focal motor deficits. Back is nontender. Test Results: Chest x-ray portable 1 view read by myself and the radiologist shows cardiomegaly which is chronic. Pulmonary edema and left pacemaker defibrillator. EKG shows a paced rhythm rate of 101. CBC normal white count of 6. Hemoglobin 9.5 which is the patient's baseline chronic anemia that he normally runs between 9 and 10. Chemistries show potassium of 5.8 again due to him needing dialysis today. BUN of 58 creatinine 13.8. Normal gap. Troponin is slightly elevated 0.046 and again he has chronically indeterminate troponins from time to time. I do not think this is secondary to acute cardiac event. Emergency Department Course and Treatment: Gentleman complaint dyspnea and fatigue. Exam is unremarkable. He was seen several days ago had unremarkable work-up at that time. Repeat exam patient is doing well at 5:27 AM. He did request an aerosol treatment. He and I discussed all his test results. He does have dialysis today even though it is a holiday Saturday and easily go from here to there to get his dialysis treatment. This should take care of his pulmonary edema and also his hyperkalemia. Treatment Plan: No updated primary care physician. Disposition: Discharge Impression: Acute dyspnea and fatigue Mild pulmonary edema induced due to renal failure Mild hyperkalemia History of end-stage renal disease and dialysis History of pacemaker defibrillator History of chronic anemia History of A. fib This note was generated with [employer] dictation software. It may contain incorrect words, spelling, and punctuation that were not noted in review of the chart prior to signing ED Disposition - Plan for ED Patient: Referrals: Aman Cabral MD [Primary Care Provider] -
[2019-08-03 04:51] LABS: Absolute Lymphocyte Count 1.23 X10^3/uL (0.83-4.51); Absolute Neutrophil Count 4.4 X10^3/uL (2.0-7.7); Basophil# 0.07 X10^3/uL; Basophil% 1.1 % (0-1); Eosinophil# 0.16 X10^3/uL; Eosinophils% 2.6 % (0-5); Hematocrit 29.5 % (40-54); Hemoglobin 9.5 g/dL (13.0-16.5); Lymphocyte # 1.23 X10^3/ul (4.0); Lymphocyte % 19.8 % (19-41); Mean Corp Hgb Conc 32.2 g/dL (32-36); Mean Corpuscular Hgb 30.6 pg (27.0-32.0); Mean Corpuscular Volume 95.2 fL (80-94); Mean Platelet Vol. 10.8 fl (6.2-12.0); Monocyte# 0.37 X10^3/uL; NRBC Flagged by Analyzer 0 % (0-5); Neutrophil # 4.35 X10^3/uL (2.7-7.7); Platelet Count 151 K/mm3 (150-450); RBC Distribution Width CV 15.5 % (11.6-14.6); RBC Distribution Width SD 52.8 fl (35.1-43.9); White Blood Count 6.2 K/mm3 (4.4-11.0)
[2019-08-03 05:19] LABS: Anion Gap 11 (5-15); BUN 58 mg/dL (7-18); BUN/Creat Ratio 4.2 RATIO (10-20); Chloride 99 mmol/L (98-107); EST Glomerular Filtration Rate 4 mL/min (>60); Est Glom Filt Rate - Afr Amer 5 mL/min (>60); Estimated Creatinine Clearance 5.76 ml/min; Glucose 100 mg/dL (74-106); Potassium 5.8 mmol/L (3.5-5.1); Sodium Level 140 mmol/L (136-145)
--- NOTE | 2019-08-03 05:30 | ED.DEP ---
ED Disposition - Plan for ED Patient: Disposition: Home or Assisted Living Referrals: Aman Cabral MD [Primary Care Provider] - 3-5 Days Additional Instructions: Go directly to your dialysis center to be dialyzed today. This should help take care of the fluid on your lungs and help bring down your potassium to a more normal level. Follow-up with your doctor as needed. Return emergency department if feeling worse.
[2019-08-03 05:32] VITALS: BP 149/91; PULSE 78; RESP 21; O2SAT 97
[2019-08-03 05:39] VITALS: PULSE 84; RESP 20
== END 2019-08-03 06:16 | disposition home or self-care (01) ==
PROVIDERS: Emergency Provider Emergency Medicine; PCP Internal Medicine
DX: J81.1 Chronic pulmonary edema (principal); E87.5 Hyperkalemia; R53.83 Other fatigue; I12.0 Hypertensive chronic kidney disease with stage 5 chronic kidney disease or end stage renal disease; N18.6 End stage renal disease; D63.1 Anemia in chronic kidney disease; I48.91 Unspecified atrial fibrillation; Z99.2 Dependence on renal dialysis; Z95.810 Presence of automatic (implantable) cardiac defibrillator; Z79.899 Other long term (current) drug therapy; Z72.0 Tobacco use
CPT/HCPCS: 71045; 80048; 84484; 85025; 93005; 94640

== ENCOUNTER 2019-08-03 11:02 | Observation (INO) | payer MEDICARE, MEDICAID, SELFPAY ==
[2019-08-03] VITALS (17 sets, daily range): BP systolic 130–239; BP diastolic 62–121; PULSE 61–129; RESP 18–25; TEMP 35.4–36.9; O2SAT 96–100; BMI 24.2; BMI 23.5; BMI 22.6
--- NOTE | 2019-08-03 11:07 | EKG12_ITS ---
Test Reason : SOB Blood Pressure : / mmHG Vent. Rate : 098 BPM Atrial Rate : 098 BPM P-R Int : 160 ms QRS Dur : 142 ms QT Int : 436 ms P-R-T Axes : 046 127 072 degrees QTc Int : 556 ms Atrial-sensed ventricular-paced rhythm Abnormal ECG Confirmed by RUBIO DINH, MIRIAM ([id number]), senior technical editor LEVI ROSE ([id number] on 08/04/2019 3:32:10 PM Referred By: LILIAN Confirmed By:MIRIAM BERGERON MD
--- NOTE | 2019-08-03 11:10 | ED.DCSUM_ITS ---
- ER Visit Summary Date of Service: 08/03/19 Chief Complaint: Shortness of breath History of Present Illness: The patient is a 58 M who presents with shortness of breath that began today. Patient states that he thought it would get better after dialysis. Patient went to dialysis today and states that they attempted to pull 2 L of fluid off of him but he is not sure if they were able to pull all of the 2 L. Patient denies any fevers or chills. Patient denies any cough or chest pain. Patient admits to nausea but denies any vomiting. Patient states nothing makes his breathing better or worse. Physical Examination: Vital signs are stable except for tachycardia of 105. Patient is afebrile. Patient is in no acute distress. Oral mucosa is pink and moist. Neck is supple. Trachea is midline. Is no JVD. Heart was regular rate and rhythm. Lungs are clear and equal bilaterally. Abdomen is soft. Bowel sounds are normal. There is no tenderness. Cranial nerves II through XII are intact. There are no focal motor or sensory deficits. AV fistula shows a palpable thrill. There is no bleeding noted at the site. Test Results: KG shows a paced rhythm with a rate of 98. There is a left bundle branch block pattern. This was unchanged compared to previous EKG dated 07/08/2019. CBC showed a mild anemia with a hemoglobin of 10.1. Creatinine was 7.25 and BUN was 24. These were improved from previous results today. Troponin was elevated at 0.077 which was increased from his previous result. Portable chest x-ray was obtained. There is no acute cardiopulmonary process. Emergency Department Course and Treatment: Since the patient has had increased troponin despite having a dialysis treatment today between the 2 results, I recommended admitting the patient for observation. Case was discussed with the hospitalist. She will admit the patient to the PCU for observation. Patient understood and was agreeable with the plan. All questions were answered. Disposition: Admit for observation Impression: 1. Dyspnea 2. Elevated troponin This note was generated with [employer] dictation software. It may contain incorrect words, spelling, and punctuation that were not noted in review of the chart prior to signing ED Disposition - Plan for ED Patient: Disposition: Acute Care [facility] Diagnosis: Dyspnea, Elevated troponin Referrals: Aman Cabral MD [Primary Care Provider] -
--- NOTE | 2019-08-03 12:05 | ED.RN ---
this rn attempted twice to obtain iv access and labs, both times i was unsuccessful. the patient request to have a femoral puncture for blood preformed. dr. douglass informed.
--- NOTE | 2019-08-03 12:15 | RAD_ITS ---
STUDY: X-RAY CHEST REASON FOR EXAM: Male, 58 years old. Shortness of breath. TECHNIQUE: Frontal view of the chest COMPARISON: 08/03/2019 FINDINGS: The lungs are clear. There are no pleural effusions. There is no pneumothorax. The heart is enlarged, but stable in size. Again noted is a pacemaker. The visualized osseous structures are within normal limits. RAD/Chest 1 View (Portable) IMPRESSION: No acute thoracic pathology. Electronically Signed: Jj Toure, at 13:15 EDT Tel , Service support ,
[2019-08-03] MEDS: Ondansetron ODT 4 MG Tablet PO (12:24)
[2019-08-03 12:40] LABS: Absolute Lymphocyte Count 1.24 X10^3/uL (0.83-4.51); Basophil# 0.05 X10^3/uL; Basophil% 0.7 % (0-1); Eosinophil# 0.17 X10^3/uL; Eosinophils% 2.4 % (0-5); Hematocrit 33.2 % (40-54); Hemoglobin 10.8 g/dL (13.0-16.5); Lymphocyte # 1.24 X10^3/ul (4.0); Lymphocyte % 17.5 % (19-41); Mean Corp Hgb Conc 32.5 g/dL (32-36); Mean Corpuscular Hgb 30.7 pg (27.0-32.0); Mean Corpuscular Volume 94.3 fL (80-94); Mean Platelet Vol. 11.2 fl (6.2-12.0); Monocyte# 0.55 X10^3/uL; Monocyte% 7.8 % (0-10); NRBC Flagged by Analyzer 0 % (0-5); Neutrophil # 5.04 X10^3/uL (2.7-7.7); Neutrophil % 71.3 % (47-70); Platelet Count 170 K/mm3 (150-450); RBC Distribution Width CV 15.3 % (11.6-14.6); RBC Distribution Width SD 51.7 fl (35.1-43.9); Red Blood Count 3.52 M/mm3 (4.6-6.2); White Blood Count 7.1 K/mm3 (4.4-11.0)
[2019-08-03 13:06] LABS: ALB/GLOB Ratio 0.6 RATIO (0.9-2.4); AST(SGOT) 31 U/L (15-37); Alanine Aminotransfer ALT/SGPT 21 U/L (16-61); Albumin, Serum 3.1 g/dL (3.2-5.0); Alkaline Phosphatase 85 U/L (45-117); Anion Gap 8 (5-15); BUN 24 mg/dL (7-18); BUN/Creat Ratio 3.3 RATIO (10-20); Calcium,Total 8.9 mg/dL (8.5-10.1); Chloride 96 mmol/L (98-107); Creatinine, Serum 7.25 mg/dL (0.70-1.30); EST Glomerular Filtration Rate 8 mL/min (>60); Est Glom Filt Rate - Afr Amer 10 mL/min (>60); Estimated Creatinine Clearance 10.97 ml/min; Globulin 4.9 g/dL (2.2-4.2); Glucose 81 mg/dL (74-106); Potassium 4.8 mmol/L (3.5-5.1); Sodium Level 139 mmol/L (136-145)
--- NOTE | 2019-08-03 14:17 | PCM.HP.STD ---
History of Present Illness The patient is a 58 year old M [] Past Medical History Past Medical History (Chronic Problems): Chronic Problems (Last Updated 06/18/19 @ 14:02 by Ligia Palm) Presence of biventricular implantable cardioverter-defibrillator (Chronic) Atrial fibrillation (Chronic) Supraventricular dysrhythmia (Chronic) Hyperlipidemia (Chronic) Seizure disorder (Chronic) HTN (hypertension) (Chronic) Anemia of chronic disease (Chronic) Cardiomyopathy (Chronic) CHF (congestive heart failure) (Chronic) ESRD (end stage renal disease) on dialysis (Chronic) Medical History: Medical History (Last Updated 06/18/19 @ 14:02 by Ligia Palm) Presence of biventricular implantable cardioverter-defibrillator (Chronic) Z95.810 Allergies Penicillins Allergy (Verified 08/03/19 11:03) Unknown sulfamethoxazole [From Bactrim] Allergy (Verified 08/03/19 11:03) Swelling trimethoprim [From Bactrim] Allergy (Verified 08/03/19 11:03) Swelling Home Medications: Ambulatory Orders Medication Instructions Recorded Calcium Acetate [Phoslo Gel Cap] 1,334 mg PO TIDCM 03/08/14 Loperamide [Imodium] 2 - 4 mg PO Q6H PRN PRN 08/21/16 Allopurinol [Zyloprim] 100 mg PO DAILYCM 02/18/18 Tamsulosin HCl [Flomax] 0.4 mg PO DAILY 02/18/18 Simvastatin 20 mg PO QHS 04/14/18 Furosemide 40 mg PO BID 11/05/18 Melatonin 5 mg PO QHS 11/05/18 Nitroglycerin 0.4 mg SL PRN PRN 11/05/18 DiphenhydrAMINE [Benadryl] 25 mg PO TID PRN PRN 11/26/18 Acetaminophen [Tylenol] 650 mg PO Q8H PRN PRN #30 cap 12/03/18 traMADol [Ultram] 50 mg PO Q8H PRN PRN 12/26/18 lisinopril 2.5 mg tablet 2.5 mg PO DAILY #90 tab 03/03/19 Carvedilol 6.25 mg PO BID 05/13/19 Cinacalcet HCl [Sensipar] 30 mg PO DAILY 05/13/19 Folic Acid/Vitamin B Comp W-C 1 cap PO DAILY 05/13/19 [Nephrocaps, Renaphro] Hydroxyzine HCl 25 mg PO DAILY 05/13/19 proMETHazine tablet [Phenergan] 25 mg PO Q6H PRN PRN #10 tab 07/30/19 Ipratropium/Albuterol Sulfate 3 ml INHALATION Q4H.RT 08/03/19 [Duoneb] Omeprazole 1 cap PO DAILY PRN 08/03/19 Surgical History: pacemaker implantation, - - prosthetic right eye, Rt upper arm AVF, right adrenal gland removal for unknown reason Psychiatric History: No pertinent psych hx Smoking Status: Current every day smoker - *Family History Maternal History Items: Diabetes Paternal History Items: Heart Disease Patient Problems: Active and Suspected Problems (Last Updated 06/18/19 @ 14:02 by Ligia Palm) Dyspnea (Acute) Elevated troponin (Acute) - Physical Exam Vitals/I&O's: Vital Signs Temp Pulse Resp BP Pulse Ox 98.2 F 105 H 18 161/98 H 98 08/03/19 11:03 08/03/19 11:03 08/03/19 11:03 08/03/19 11:03 08/03/19 11:28 Oxygen Flow Rate (L/min) 2 Oxygen Delivery Method Room Air Weight: 159 lb 2.78 oz Body Mass Index (BMI) 23.5 Finger Stick Blood Glucose 95 Laboratory Results 08/03/19 12:30: WBC 7.1, RBC 3.52 L, Hgb 10.8 L, Hct 33.2 L, MCV 94.3 H, MCH 30.7, MCHC 32.5, RDW Std Deviation 51.7 H, RDW Coeff of Dharmesh 15.3 H, Plt Count 170, MPV 11.2, Immature Gran % (Auto) 0.300, Neut % (Auto) 71.3 H, Lymph % (Auto) 17.5 L, Walker % (Auto) 7.8, Eos % (Auto) 2.4, Baso % (Auto) 0.7, Absolute Neuts (auto) 5.0, Absolute Lymphs (auto) 1.24, Nucleated RBC % 0 08/03/19 12:30: Sodium 139, Potassium 4.8, Chloride 96 L, Carbon Dioxide 35.0 H, Anion Gap 8, BUN 24 H, Creatinine 7.25 H, Estim Creat Clear Calc 10.97, Est GFR (MDRD) Af Amer 10 L, Est GFR (MDRD) Non-Af 8 L, BUN/Creatinine Ratio 3.3 L, Glucose 81, Calcium 8.9, Total Bilirubin 1.50 H, AST 31, ALT 21, Alkaline Phosphatase 85, Troponin I 0.077 H, Total Protein 8.0, Albumin 3.1 L, Globulin 4.9 H, Albumin/Globulin Ratio 0.6 L Assessment/Plan All Active Problems (Last Updated 06/18/19 @ 14:02 by Ligia Palm) Dyspnea (Acute) Elevated troponin (Acute) Acute on chronic congestive heart failure (Acute)
--- NOTE | 2019-08-03 15:12 | HP.PCM_ITS ---
History of Present Illness Date of Admission: 08/03/19 Chief Complaint: Shortness of breath x1 week The patient is a 58 year old M with a PMH as outlined which includes ESRD and COPD. He was admitted through the ED on 08/03/2019 with a complaint of shortness of breath which have been going on for about a week with associated general malaise. Patient was seen much earlier in the day around on of the same day of admission with similar complaints. He was discharged to go to his dialysis center for dialysis today. He states he went for dialysis but they were not even able to take off 2 liters of fluid. Shortness of breath still persisted so he decided to come to the ED. he denied any fever or chills and admitted to a cough which is productive of scant clear sputum. He did also have some mild wheezing and states he has COPD though he is not on any inhalers at home. He denied any chest pain, palpitations, dizziness, nausea vomiting or diarrhea. Review of symptoms otherwise negative. In the ED, vitals were significant for pulse rate of 105 and respiratory rate of 18 with blood pressure of 161/98 and temperature of 98.2 Fahrenheit. Labs showed bicarb of 35 with creatinine of 7.25 and total bilirubin of 1.5 with troponin of 0.077. CBC showed no leukocytosis and had hemoglobin of 10.8 with platelets of 170. EKG showed no acute ST changes. Chest x-ray done showed no acute intrathoracic pathology. He has been admitted to be managed for shortness of breath likely due to fluid overload and elevated troponin. [] Past Medical History Past Medical History (Chronic Problems): Chronic Problems (Last Updated 06/18/19 @ 14:02 by Ligia Palm) Presence of biventricular implantable cardioverter-defibrillator (Chronic) Atrial fibrillation (Chronic) Supraventricular dysrhythmia (Chronic) Hyperlipidemia (Chronic) Seizure disorder (Chronic) HTN (hypertension) (Chronic) Anemia of chronic disease (Chronic) Cardiomyopathy (Chronic) CHF (congestive heart failure) (Chronic) ESRD (end stage renal disease) on dialysis (Chronic) Medical History: Medical History (Last Updated 06/18/19 @ 14:02 by Ligia Palm) Presence of biventricular implantable cardioverter-defibrillator (Chronic) Z95.810 Allergies Penicillins Allergy (Verified 08/03/19 11:03) Unknown sulfamethoxazole [From Bactrim] Allergy (Verified 08/03/19 11:03) Swelling trimethoprim [From Bactrim] Allergy (Verified 08/03/19 11:03) Swelling Home Medications: Ambulatory Orders Medication Instructions Recorded Calcium Acetate [Phoslo Gel Cap] 1,334 mg PO TIDCM 03/08/14 Loperamide [Imodium] 2 - 4 mg PO Q6H PRN PRN 08/21/16 Allopurinol [Zyloprim] 100 mg PO DAILYCM 02/18/18 Tamsulosin HCl [Flomax] 0.4 mg PO DAILY 02/18/18 Simvastatin 20 mg PO QHS 04/14/18 Furosemide 40 mg PO BID 11/05/18 Melatonin 5 mg PO QHS 11/05/18 Nitroglycerin 0.4 mg SL PRN PRN 11/05/18 DiphenhydrAMINE [Benadryl] 25 mg PO TID PRN PRN 11/26/18 Acetaminophen [Tylenol] 650 mg PO Q8H PRN PRN #30 cap 12/03/18 traMADol [Ultram] 50 mg PO Q8H PRN PRN 12/26/18 lisinopril 2.5 mg tablet 2.5 mg PO DAILY #90 tab 03/03/19 Carvedilol 6.25 mg PO BID 05/13/19 Cinacalcet HCl [Sensipar] 30 mg PO DAILY 05/13/19 Folic Acid/Vitamin B Comp W-C 1 cap PO DAILY 05/13/19 [Nephrocaps, Renaphro] Hydroxyzine HCl 25 mg PO Q8H 05/13/19 proMETHazine tablet [Phenergan 25 mg PO Q6H PRN PRN #10 tab 07/30/19 tablet] Ipratropium/Albuterol Sulfate 3 ml INHALATION Q4H.RT 08/03/19 [Duoneb] Omeprazole 1 cap PO DAILY PRN 08/03/19 Surgical History: pacemaker implantation, - - prosthetic right eye, Rt upper arm AVF, right adrenal gland removal for unknown reason Psychiatric History: No pertinent psych hx Smoking Status: Heavy Smoker (>10/day) Tobacco Use: Cigarettes Alcohol: Occasional Drugs: None - *Family History Maternal History Items: Diabetes Paternal History Items: Heart Disease Review of Systems Constitutional: Reports: Malaise, Weakness, Fatigue. Denies: Anorexia, Chills, Fever Eyes: Denies: Blurred vision HEENT: Denies: Head Aches, Sinus Congestion, Sinus Drainage Cardiovascular: Denies: Chest Pain, Palpitations Respiratory: Reports: Cough, Shortness of Breath, Shortness of breath at rest, Shortness of breath upon exertion, Sputum production, Wheezing. Denies: Hemoptysis, Pleuritic Pain Gastrointestinal: Denies: Abdominal Pain, Nausea, Vomiting Genitourinary: Denies: Dysuria Musculoskeletal: Denies: Joint Pain, Joint Tenderness Skin: Denies: Rash, Wounds Neurological: Denies: Numbness, Tingling, Focal weakness Psychiatric: Denies: Anxiety, Depression, Homicidal Ideations, Suicidal Ideations Hematologic/ Lymphatic: Denies: Easy Bruising, Easy Bleeding VTE Information - Inpt Only VTE Present on Admission: No VTE Pharm Prophylaxis ordered?: Yes Patient Problems: Active and Suspected Problems (Last Updated 06/18/19 @ 14:02 by Ligia Palm) Dyspnea (Acute) Elevated troponin (Acute) - Physical Exam Vitals/I&O's: Vital Signs Temp Pulse Resp BP Pulse Ox 98.4 F 102 H 20 H 155/105 H 100 08/03/19 14:28 08/03/19 14:28 08/03/19 14:28 08/03/19 14:28 08/03/19 14:28 Oxygen Flow Rate (L/min) 2 Oxygen Delivery Method Nasal Cannula Weight: 159 lb 2.78 oz Body Mass Index (BMI) 23.5 Finger Stick Blood Glucose 95 General: Alert, Oriented x3, Cooperative, No apparent distress, Lethargic HEENT: Atraumatic, PERRLA, EOMI, Normocephalic Oral: Dry Mucosa Neck: Supple, No JVD, Negative Carotid Bruits Lungs: - - mildly diminished breath sounds bibasally, no wheezes or crackles. Cardiovascular: Regular Rhythm, Normal S1, Normal S2, No murmurs, Tachycardic Abdomen: Bowel Sounds Present, Soft, Non Tender, Non-Distended, No Hepato-splenomegaly Extremities: No clubbing, No cyanosis, No edema, Capillary Refill Less than 3 Seconds Skin: No rashes, No breakdown Musculoskeletal: No Tenderness to Palpation of Joints or Extremities Lymphatic: No Cervical, Supraclavicular, or Inguinal Adenopathy Neurological: Cranial nerves II-XII grossly intact, Neuro grossly intact, Motor Exam 5/5 strength throughout Psych/Mental Status: Normal Affect, Appropriate, Alert and oriented to time, place, person, mood and affect Laboratory Results 08/03/19 12:30: WBC 7.1, RBC 3.52 L, Hgb 10.8 L, Hct 33.2 L, MCV 94.3 H, MCH 30.7, MCHC 32.5, RDW Std Deviation 51.7 H, RDW Coeff of Dharmesh 15.3 H, Plt Count 170, MPV 11.2, Immature Gran % (Auto) 0.300, Neut % (Auto) 71.3 H, Lymph % (Auto) 17.5 L, Moody % (Auto) 7.8, Eos % (Auto) 2.4, Baso % (Auto) 0.7, Absolute Neuts (auto) 5.0, Absolute Lymphs (auto) 1.24, Nucleated RBC % 0 08/03/19 12:30: Sodium 139, Potassium 4.8, Chloride 96 L, Carbon Dioxide 35.0 H, Anion Gap 8, BUN 24 H, Creatinine 7.25 H, Estim Creat Clear Calc 10.97, Est GFR (MDRD) Af Amer 10 L, Est GFR (MDRD) Non-Af 8 L, BUN/Creatinine Ratio 3.3 L, Glucose 81, Calcium 8.9, Total Bilirubin 1.50 H, AST 31, ALT 21, Alkaline Phosphatase 85, Troponin I 0.077 H, Total Protein 8.0, Albumin 3.1 L, Globulin 4.9 H, Albumin/Globulin Ratio 0.6 L Diagnostic Data Chest X-Ray 08/03/19 12:15 IMPRESSION: No acute thoracic pathology. Electronically Signed: Jj Toure, at 13:15 EDT Tel , Service support , Assessment/Plan All Active Problems (Last Updated 06/18/19 @ 14:02 by Ligia Palm) Dyspnea (Acute) Elevated troponin (Acute) Acute on chronic congestive heart failure (Acute) 58 y/o admitted with a complaint of shortness of breath 1. Acute hypoxic respiratory insufficiency likely due to fluid overload * admit to PCU with telemetry * consult nephrology as he had inadequate dialysis today * breathing treatments with duonebs * titrate oxygen to maintain sats >90% * COVID screen pending * 2. elevated troponins * initial troponin was 0.077. This is likely due to decreased troponin clearance from inadequate dialysis; he has no chest pain * Will cycle troponins. * Sublingual nitroglycerin as needed. P.o. aspirin 81 mg daily. * 3. ESRD on hemodialysis: * Goes for hemodialysis Mondays, Wednesdays and Fridays * On Nephrocaps and cinacalcet. * Nephrology consulted. * DVT Prophylaxis: Lovenox renally dosed Code Status: Full code * Patient counseled extensively about different types of CODE STATUS including full code, DNR CCA and DNR CCA. * Patient elects to be full code. * Total [id number] time 16 minutes. OBSV E&M: 05099 Initial observation care L3 Procedures: 33303 Advncd Care Plan 30 Min
[2019-08-03] MEDS: Ondansetron 4 MG/2 ML Vial IV ×2 (16:21→20:39)
[2019-08-03] MEDS: hydrALAZINE 20 MG/ML Vial 10 MG IV (18:24)
[2019-08-03] MEDS: Clonidine HCl 0.1 MG, Clonidine HCl 0.2 MG 0.3 MG PO (18:26)
[2019-08-03] MEDS: Ipratropium/Albuterol Sulfate 3 ML AMPUL.NEB INHALATION (18:50)
[2019-08-03] MEDS: DiphenhydrAMINE 25 MG Capsule PO (20:38)
[2019-08-03] MEDS: Carvedilol 6.25 MG Tablet PO (22:52)
[2019-08-03] MEDS: Atorvastatin Calcium 10 MG Tablet PO (22:52)
[2019-08-03] MEDS: MELATONIN 10 MG TABLET 5 MG PO (22:52)
--- NOTE | 2019-08-03 23:09 | DIALYSIS ---
IUF X 2 HRS UF-1500ML TOLERATED WELL UNABLE TO GET MORE FLUID OFF PER CRIT LINE READING. STASIS AT [facility] AT [facility]. REPORT TO CLIFF NUNEZ
[2019-08-03] MEDS: Acetaminophen 325 MG Tablet 650 MG PO (23:56)
[2019-08-04] VITALS (11 sets, daily range): BP systolic 106–131; BP diastolic 43–79; PULSE 69–88; RESP 16–18; TEMP 36.8–36.9; O2SAT 91–94
[2019-08-04] MEDS: Ipratropium/Albuterol Sulfate 3 ML AMPUL.NEB INHALATION ×3 (03:14→10:46)
[2019-08-04] MEDS: DiphenhydrAMINE 25 MG Capsule PO (03:14)
[2019-08-04 07:41] LABS: Absolute Lymphocyte Count 1.52 X10^3/uL (0.83-4.51); Absolute Neutrophil Count 2.4 X10^3/uL (2.0-7.7); Basophil# 0.03 X10^3/uL; Basophil% 0.7 % (0-1); Eosinophil# 0.12 X10^3/uL; Eosinophils% 2.7 % (0-5); Hematocrit 34.8 % (40-54); Hemoglobin 11.1 g/dL (13.0-16.5); Lymphocyte # 1.52 X10^3/ul (4.0); Lymphocyte % 33.8 % (19-41); Mean Corp Hgb Conc 31.9 g/dL (32-36); Mean Corpuscular Hgb 30.2 pg (27.0-32.0); Mean Corpuscular Volume 94.6 fL (80-94); Mean Platelet Vol. 10.7 fl (6.2-12.0); Monocyte# 0.43 X10^3/uL; Monocyte% 9.6 % (0-10); NRBC Flagged by Analyzer 0 % (0-5); Neutrophil # 2.38 X10^3/uL (2.7-7.7); Neutrophil % 52.8 % (47-70); Platelet Count 166 K/mm3 (150-450); RBC Distribution Width CV 14.9 % (11.6-14.6); RBC Distribution Width SD 51.8 fl (35.1-43.9); Red Blood Count 3.68 M/mm3 (4.6-6.2); White Blood Count 4.5 K/mm3 (4.4-11.0)
[2019-08-04 08:19] LABS: Anion Gap 9 (5-15); BUN 41 mg/dL (7-18); BUN/Creat Ratio 4.2 RATIO (10-20); Calcium,Total 8.5 mg/dL (8.5-10.1); Chloride 96 mmol/L (98-107); Creatinine, Serum 9.68 mg/dL (0.70-1.30); EST Glomerular Filtration Rate 6 mL/min (>60); Est Glom Filt Rate - Afr Amer 7 mL/min (>60); Estimated Creatinine Clearance 7.81 ml/min; Glucose 125 mg/dL (74-106); Sodium Level 139 mmol/L (136-145)
[2019-08-04] MEDS: Tamsulosin HCl 0.4 MG Capsule PO (09:06)
[2019-08-04] MEDS: Calcium Acetate 667 MG Capsule 1334 MG PO ×2 (09:06→11:46)
[2019-08-04] MEDS: Furosemide 40 MG Tablet PO (09:06)
[2019-08-04] MEDS: Allopurinol 100 MG Tablet PO (09:06)
[2019-08-04] MEDS: Cinacalcet HCl 30 MG Tablet PO (09:07)
[2019-08-04] MEDS: Folic Acid/Vitamin B Comp W-C 1 Capsule 1 CAP PO (09:07)
[2019-08-04] MEDS: Carvedilol 6.25 MG Tablet PO (09:07)
[2019-08-04] MEDS: hydrOXYzine PAM 25 MG Capsule PO (09:07)
[2019-08-04] MEDS: Enoxaparin 30 MG/0.3 ML Syringe SC (09:07)
[2019-08-04] MEDS: Lisinopril 2.5 MG Tablet PO (09:08)
--- NOTE | 2019-08-04 10:34 | DCINST_ITS ---
- Discharge Diagnoses Current Active Problems: Current Active and Chronic Problems (Last Updated 06/18/19 @ 14:02 by Ligia Palm) Dyspnea (Acute) Elevated troponin (Acute) You will use the following diet at home:: Renal (restricted protein/sodium) Your food should be the consistency of: Regular Your liquids should be the consistency of: Regular/Thin Discharge Activity: Return to Normal Activity Weight Bearing Status: Weight bearing as tolerated Call your doctor if you observe: Shortness of breath, Dizziness, Fainting spells, Swelling in the ankles, Chest pain, Increased palpitations (irregular heartbeat) Instructions: ED Dyspnea Additional Instructions: to continue with dialysis schedule of Mondays, Wednesdays and Fridays Allergies/Adverse Reactions: Allergies Penicillins Allergy (Verified 08/03/19 11:03) Unknown sulfamethoxazole [From Bactrim] Allergy (Verified 08/03/19 11:03) Swelling trimethoprim [From Bactrim] Allergy (Verified 08/03/19 11:03) Swelling Medications to take at Discharge Calcium Acetate [Phoslo Gel Cap] 1,334 mg PO TIDCM 03/08/14 Loperamide [Imodium] 2 - 4 mg PO Q6H PRN PRN 08/21/16 Allopurinol [Zyloprim] 100 mg PO DAILYCM 02/18/18 Tamsulosin HCl [Flomax] 0.4 mg PO DAILY 02/18/18 Simvastatin 20 mg PO QHS 04/14/18 Furosemide 40 mg PO BID 11/05/18 Melatonin 5 mg PO QHS 11/05/18 Nitroglycerin 0.4 mg SL PRN PRN 11/05/18 DiphenhydrAMINE [Benadryl] 25 mg PO TID PRN PRN 11/26/18 Acetaminophen [Tylenol] 650 mg PO Q8H PRN PRN #30 cap 12/03/18 traMADol [Ultram] 50 mg PO Q8H PRN PRN 12/26/18 lisinopril 2.5 mg tablet 2.5 mg PO DAILY #90 tab 03/03/19 Carvedilol 6.25 mg PO BID 05/13/19 Cinacalcet HCl [Sensipar] 30 mg PO DAILY 05/13/19 Folic Acid/Vitamin B Comp W-C [Nephrocaps, Renaphro] 1 cap PO DAILY 05/13/19 Hydroxyzine HCl 25 mg PO Q8H 05/13/19 proMETHazine tablet [Phenergan tablet] 25 mg PO Q6H PRN PRN #10 tab 07/30/19 Ipratropium/Albuterol Sulfate [Duoneb] 3 ml INHALATION Q4H.RT 08/03/19 Omeprazole 1 cap PO DAILY PRN 08/03/19 Primary Care Physician: Aman Cabral MD [Primary Care Provider] - Please follow up with your Primary Care Physician in: 1-2 weeks Test Results: Test results from this visit will be discussed in further detail at your follow- up appointment, if applicable. Please Follow Up With: Lynn Nicole MD When: 1 week Proposed Discharge Date: 08/04/19
--- NOTE | 2019-08-04 10:39 | DS.PCM_ITS ---
Discharge Date and Diagnosis - Problem List Patient Problems: Active and Suspected Problems (Last Updated 06/18/19 @ 14:02 by Ligia Palm) Dyspnea (Acute) Elevated troponin (Acute) Date of Admission: 08/03/19 Date of Discharge: 08/04/19 - Primary Discharge Diagnosis Acute Problems: Active Problems (Last Updated 06/18/19 @ 14:02 by Ligia Palm) Dyspnea (Acute) Elevated troponin (Acute) fluid overload due to ESRD - Secondary Discharge Diagnosis Chronic Problems: Chronic Problems (Last Updated 06/18/19 @ 14:02 by Ligia Palm) Presence of biventricular implantable cardioverter-defibrillator (Chronic) Atrial fibrillation (Chronic) Supraventricular dysrhythmia (Chronic) Hyperlipidemia (Chronic) Seizure disorder (Chronic) HTN (hypertension) (Chronic) Anemia of chronic disease (Chronic) Cardiomyopathy (Chronic) CHF (congestive heart failure) (Chronic) ESRD (end stage renal disease) on dialysis (Chronic) Hospital Course and Treatment Imaging Results: Diagnostic Data Chest X-Ray 08/03/19 12:15 IMPRESSION: No acute thoracic pathology. Electronically Signed: Jj Toure, at 13:15 EDT Tel , Service support , nephrology- Dr Nicole Operations: None Procedures: None Summary of Care Provided: The patient is a 58 year old M with a PMH as outlined which includes ESRD and COPD. He was admitted through the ED on 08/03/2019 with a complaint of shortness of breath which have been going on for about a week with associated general malaise. Patient was seen much earlier in the day around on of the same day of admission with similar complaints. He was discharged to go to his dialysis center for dialysis today. He states he went for dialysis but they were not even able to take off 2 liters of fluid. Shortness of breath still persisted so he decided to come to the ED. he denied any fever or chills and admitted to a cough which is productive of scant clear sputum. He did also have some mild wheezing and states he has COPD though he is not on any inhalers at home. He denied any chest pain, palpitations, dizziness, nausea vomiting or diarrhea. Review of symptoms otherwise negative. In the ED, vitals were significant for pulse rate of 105 and respiratory rate of 18 with blood pressure of 161/98 and temperature of 98.2 Fahrenheit. Labs showed bicarb of 35 with creatinine of 7.25 and total bilirubin of 1.5 with troponin of 0.077. CBC showed no leukocytosis and had hemoglobin of 10.8 with platelets of 170. EKG showed no acute ST changes. Chest x-ray done showed no acute intrathoracic pathology. He has been admitted to be managed for shortness of breath likely due to fluid overload and elevated troponin likely due to decreased renal clearance. Nephrology was consulted, and patient had emergent dialysis on the night of with removal of 1.5 L of fluid. Shortness of breath completely resolved he felt much better. Of note, troponin trended up slightly to 0.088 and plateaued today. This was likely due to decreased renal clearance as patient had no chest pain and EKG showed no acute ST changes as well. Shortness of breath also resolved completely with dialysis. He remained stable and was discharged home on 08/04/2019. He is follow-up with his primary care doctor and also to follow-up with nephrology. Patient was counseled to quit smoking. Patient seen and examined prior to discharge. He had no complaints. He feels much much better and was open to being discharged. Review of symptoms otherwise negative. Labs and vitals reviewed. Home medication reviewed and reconciled. o/e: Vital Signs Temp Pulse Resp BP Pulse Ox 98.2 F 78 18 131/79 H 94 08/04/19 09:03 08/04/19 09:03 08/04/19 09:03 08/04/19 09:03 08/04/19 09:03 [] General: Alert, Oriented x3, Cooperative, No apparent distress, HEENT: Atraumatic, PERRLA, EOMI, Normocephalic Oral: Dry Mucosa Neck: Supple, No JVD, Negative Carotid Bruits Lungs: - - clear to auscultation, no wheezes or crackles.on room air. Cardiovascular: Regular Rhythm, Normal S1, Normal S2, No murmurs, regular rate Abdomen: Bowel Sounds Present, Soft, Non Tender, Non-Distended, No Hepato- splenomegaly Extremities: No clubbing, No cyanosis, No edema, Capillary Refill Less than 3 Seconds Skin: No rashes, No breakdown Musculoskeletal: No Tenderness to Palpation of Joints or Extremities Lymphatic: No Cervical, Supraclavicular, or Inguinal Adenopathy Neurological: Cranial nerves II-XII grossly intact, Neuro grossly intact, Motor Exam 5/5 strength throughout Psych/Mental Status: Normal Affect, Appropriate, Alert and oriented to time, place, person, mood and affect Plan is for dc home today; to follow up with his PCP and nephrology, and counseled to be compliant with hsi Mondays, Wednesdays, Fridays dialysis schedule Patient Problems: Active and Suspected Problems (Last Updated 06/18/19 @ 14:02 by Ligia Palm) Dyspnea (Acute) Elevated troponin (Acute) - Physical Exam Vitals/I&O's: Vital Signs Temp Pulse Resp BP Pulse Ox 98.2 F 78 18 131/79 H 94 08/04/19 09:03 08/04/19 09:03 08/04/19 09:03 08/04/19 09:03 08/04/19 09:03 Oxygen Flow Rate (L/min) 2 Oxygen Delivery Method Room Air Weight: 148 lb 2.41 oz Body Mass Index (BMI) 22.6 Finger Stick Blood Glucose 95 Intake and Output for Last 24 Hours 08/02/19 08/03/19 08/04/19 23:59 23:59 23:59 Intake Total 480 / 480 0 / 0 Output Total 1500 / 1500 0 / 0 Balance -1020 / -1020 0 / 0 Microbiology Past 72 Hours 08/03/19 14:30 Mucosa - Nasopharyngeal Coronavirus COVID-19 PCR - Final Laboratory Results 08/03/19 12:30: WBC 7.1, RBC 3.52 L, Hgb 10.8 L, Hct 33.2 L, MCV 94.3 H, MCH 30.7, MCHC 32.5, RDW Std Deviation 51.7 H, RDW Coeff of Dharmesh 15.3 H, Plt Count 170, MPV 11.2, Immature Gran % (Auto) 0.300, Neut % (Auto) 71.3 H, Lymph % (Auto) 17.5 L, Tift % (Auto) 7.8, Eos % (Auto) 2.4, Baso % (Auto) 0.7, Absolute Neuts (auto) 5.0, Absolute Lymphs (auto) 1.24, Nucleated RBC % 0 08/03/19 12:30: Sodium 139, Potassium 4.8, Chloride 96 L, Carbon Dioxide 35.0 H, Anion Gap 8, BUN 24 H, Creatinine 7.25 H, Estim Creat Clear Calc 10.97, Est GFR (MDRD) Af Amer 10 L, Est GFR (MDRD) Non-Af 8 L, BUN/Creatinine Ratio 3.3 L, Glucose 81, Calcium 8.9, Total Bilirubin 1.50 H, AST 31, ALT 21, Alkaline Phosphatase 85, Troponin I 0.077 H, Total Protein 8.0, Albumin 3.1 L, Globulin 4.9 H, Albumin/Globulin Ratio 0.6 L 08/03/19 15:42: Troponin I 0.088 H 08/03/19 20:50: Troponin I 0.088 H 08/03/19 22:45: Troponin I 0.088 H 08/04/19 07:26: WBC 4.5, RBC 3.68 L, Hgb 11.1 L, Hct 34.8 L, MCV 94.6 H, MCH 30.2, MCHC 31.9 L, RDW Std Deviation 51.8 H, RDW Coeff of Dharmesh 14.9 H, Plt Count 166, MPV 10.7, Immature Gran % (Auto) 0.400, Neut % (Auto) 52.8, Lymph % (Auto) 33.8, Tift % (Auto) 9.6, Eos % (Auto) 2.7, Baso % (Auto) 0.7, Absolute Neuts (auto) 2.4, Absolute Lymphs (auto) 1.52, Nucleated RBC % 0 08/04/19 07:26: Sodium 139, Potassium 4.0, Chloride 96 L, Carbon Dioxide 34.0 H, Anion Gap 9, BUN 41 H, Creatinine 9.68 H*, Estim Creat Clear Calc 7.81, Est GFR (MDRD) Af Amer 7 L, Est GFR (MDRD) Non-Af 6 L, BUN/Creatinine Ratio 4.2 L, Glucose 125 H, Calcium 8.5 Diagnostic Data Chest X-Ray 08/03/19 12:15 IMPRESSION: No acute thoracic pathology. Electronically Signed: Jj Toure, at 13:15 EDT Tel , Service support , Current Medications Acetaminophen (Tylenol) 650 mg PO Q8H PRN PRN PRN Reason: PAIN -12/18 Last Admin: 08/03/19 23:56 Dose: 650 mg Documented by: Albuterol/Ipratropium (Duoneb) 3 ml INHALATION Q4H.RT [facility] Last Admin: 08/04/19 07:00 Dose: 3 ml Documented by: Allopurinol (Zyloprim) 100 mg PO DAILYCM [facility] Last Admin: 08/04/19 09:06 Dose: 100 mg Documented by: Atorvastatin Calcium (Lipitor) 10 mg PO QHS [facility] Last Admin: 08/03/19 22:52 Dose: 10 mg Documented by: Calcium Acetate (Phoslo Gel Cap) 1,334 mg PO TIDCM [facility] Last Admin: 08/04/19 09:06 Dose: 1,334 mg Documented by: Carvedilol (Coreg) 6.25 mg PO BID [facility] Last Admin: 08/04/19 09:07 Dose: 6.25 mg Documented by: Cinacalcet (Sensipar) 30 mg PO DAILY [facility] Last Admin: 08/04/19 09:07 Dose: 30 mg Documented by: Dextrose (D50w Syringe) 0 gm IV X1 PRN; Protocol PRN Reason: Hypoglycemia Diphenhydramine HCl (Benadryl) 25 mg PO TID PRN PRN PRN Reason: ITCHING Last Admin: 08/04/19 03:14 Dose: 25 mg Documented by: Enoxaparin Sodium (Lovenox) 30 mg SC DAILY [facility] Last Admin: 08/04/19 09:07 Dose: 30 mg Documented by: Furosemide (Lasix) 40 mg PO BID@1000,1700 [facility] Last Admin: 08/04/19 09:06 Dose: 40 mg Documented by: Glucagon () 1 mg IM .X1 PRN PRN Reason: Hypoglycemia Hydroxyzine Pamoate (Vistaril Pamoate Capsule) 25 mg PO DAILY [facility] Last Admin: 08/04/19 09:07 Dose: 25 mg Documented by: Sodium Chloride () 250 mls @ 15 mls/hr IV .[id number] PRN PRN Reason: Saline Flush Sodium Chloride () 250 mls @ 15 mls/hr IV .[id number] PRN PRN Reason: Additional IVPB Infusion Lisinopril (Zestril) 2.5 mg PO DAILY [facility] Last Admin: 08/04/19 09:08 Dose: 2.5 mg Documented by: Loperamide HCl (Imodium) 2 mg PO Q6H PRN PRN PRN Reason: Diarrhea Melatonin (Melatonin) 5 mg PO QHS [facility] Last Admin: 08/03/19 22:52 Dose: 5 mg Documented by: Multivit/Ca Carb/B Cmplx/FA/Prenat (Nephrocaps, Renaphro) 1 capsule PO DAILY [facility] Last Admin: 08/04/19 09:07 Dose: 1 capsule Documented by: Nitroglycerin (Nitrostat) 0.4 mg SUBLINGUAL Q5M PRN PRN Reason: CHEST PAIN Ondansetron HCl (Zofran) 4 mg IV Q8H PRN PRN PRN Reason: NAUSEA/VOMITING Last Admin: 08/03/19 20:39 Dose: 4 mg Documented by: Pantoprazole Sodium (Protonix) 40 mg PO DAILY PRN PRN Reason: HEART BURN Promethazine HCl (Phenergan Tablet) 25 mg PO Q6H PRN PRN PRN Reason: NAUSEA Sodium Chloride () 10 - 40 ml IV UD PRN PRN Reason: SALINE FLUSH Tamsulosin HCl (Flomax) 0.4 mg PO DAILY [facility] Last Admin: 08/04/19 09:06 Dose: 0.4 mg Documented by: Discharge Diet: Renal Diet Discharge Activity: Return to Normal Activity Weight Bearing Status: Weight bearing as tolerated Call your doctor if you observe: Shortness of breath, Dizziness, Fainting spells, Swelling in the ankles, Chest pain, Increased palpitations (irregular heartbeat) Home Medications: Medications to take at Discharge Calcium Acetate [Phoslo Gel Cap] 1,334 mg PO TIDCM 03/08/14 Loperamide [Imodium] 2 - 4 mg PO Q6H PRN PRN 08/21/16 Allopurinol [Zyloprim] 100 mg PO DAILYCM 02/18/18 Tamsulosin HCl [Flomax] 0.4 mg PO DAILY 02/18/18 Simvastatin 20 mg PO QHS 04/14/18 Furosemide 40 mg PO BID 11/05/18 Melatonin 5 mg PO QHS 11/05/18 Nitroglycerin 0.4 mg SL PRN PRN 11/05/18 DiphenhydrAMINE [Benadryl] 25 mg PO TID PRN PRN 11/26/18 Acetaminophen [Tylenol] 650 mg PO Q8H PRN PRN #30 cap 12/03/18 traMADol [Ultram] 50 mg PO Q8H PRN PRN 12/26/18 lisinopril 2.5 mg tablet 2.5 mg PO DAILY #90 tab 03/03/19 Carvedilol 6.25 mg PO BID 05/13/19 Cinacalcet HCl [Sensipar] 30 mg PO DAILY 05/13/19 Folic Acid/Vitamin B Comp W-C [Nephrocaps, Renaphro] 1 cap PO DAILY 05/13/19 Hydroxyzine HCl 25 mg PO Q8H 05/13/19 proMETHazine tablet [Phenergan tablet] 25 mg PO Q6H PRN PRN #10 tab 07/30/19 Ipratropium/Albuterol Sulfate [Duoneb] 3 ml INHALATION Q4H.RT 08/03/19 Omeprazole 1 cap PO DAILY PRN 08/03/19 Primary Care Physician: Aman Cabral MD [Primary Care Provider] - Please follow up with your Primary Care Physician in: 1-2 weeks Please Follow Up With: Lynn Nicole MD When: 1 week Patient Instructions: ED Dyspnea Disposition: Home Minutes spent on discharge:: 35 Patient Condition:: Stable Medical Necessity - Tobacco Use Smoking Status: Heavy Smoker (>10/day) Tobacco Use: Cigarettes Meaningful Use Info Meaningful Use Diagnoses (Choose all that apply): None applicable OBSV E&M: 28375 Observation care discharge
--- NOTE | 2019-08-04 11:06 | PHA.DC.MR ---
Pharmacy Service has performed discharge medication reconciliation for this patient. No new medications at time of discharge. Medications reviewed are from previously reported home medications. The patient's discharge medication list was reviewed for discrepancies and discrepancies were resolved. Home Medications Calcium Acetate [Phoslo Gel Cap] 1,334 mg PO TIDCM 03/08/14 Loperamide [Imodium] 2 - 4 mg PO Q6H PRN PRN 08/21/16 Allopurinol [Zyloprim] 100 mg PO DAILYCM 02/18/18 Tamsulosin HCl [Flomax] 0.4 mg PO DAILY 02/18/18 Simvastatin 20 mg PO QHS 04/14/18 Furosemide 40 mg PO BID 11/05/18 Melatonin 5 mg PO QHS 11/05/18 Nitroglycerin 0.4 mg SL PRN PRN 11/05/18 DiphenhydrAMINE [Benadryl] 25 mg PO TID PRN PRN 11/26/18 Acetaminophen [Tylenol] 650 mg PO Q8H PRN PRN #30 cap 12/03/18 traMADol [Ultram] 50 mg PO Q8H PRN PRN 12/26/18 lisinopril 2.5 mg tablet 2.5 mg PO DAILY #90 tab 03/03/19 Carvedilol 6.25 mg PO BID 05/13/19 Cinacalcet HCl [Sensipar] 30 mg PO DAILY 05/13/19 Folic Acid/Vitamin B Comp W-C [Nephrocaps, Renaphro] 1 cap PO DAILY 05/13/19 Hydroxyzine HCl 25 mg PO Q8H 05/13/19 proMETHazine tablet [Phenergan tablet] 25 mg PO Q6H PRN PRN #10 tab 07/30/19 Ipratropium/Albuterol Sulfate [Duoneb] 3 ml INHALATION Q4H.RT 08/03/19 Omeprazole 1 cap PO DAILY PRN 08/03/19
== END 2019-08-04 10:36 | disposition home or self-care (01) ==
LOC: ED 14:16 → PCU 08-04 06:06 → ICU 08-04 10:14
PROVIDERS: Emergency Medicine; Admitting Provider Student in an Organized Health Care Education/Training Program; Emergency Provider Emergency Medicine; PCP Internal Medicine; Visit Provider Student in an Organized Health Care Education/Training Program
DX: E87.70 Fluid overload, unspecified (principal); R06.00 Dyspnea, unspecified; F17.210 Nicotine dependence, cigarettes, uncomplicated; R94.31 Abnormal electrocardiogram [ECG] [EKG]; R79.89 Other specified abnormal findings of blood chemistry; N18.6 End stage renal disease; Z99.2 Dependence on renal dialysis; J44.9 Chronic obstructive pulmonary disease, unspecified; I13.2 Hypertensive heart and chronic kidney disease with heart failure and with stage 5 chronic kidney disease, or end stage renal disease; I50.9 Heart failure, unspecified; E78.5 Hyperlipidemia, unspecified; D63.8 Anemia in other chronic diseases classified elsewhere; I42.9 Cardiomyopathy, unspecified; Z79.899 Other long term (current) drug therapy; J81.1 Chronic pulmonary edema; R53.83 Other fatigue; Z95.810 Presence of automatic (implantable) cardiac defibrillator; D63.1 Anemia in chronic kidney disease; I48.91 Unspecified atrial fibrillation
CPT/HCPCS: 36415; 71045; 80048; 80053; 84484; 85025; 87635; 93005; 94640; 96372; 96374; 96375; 96376; 97161; 97165; 99218; 99285; 99406; G2023; J7030; A4216; G0378; J2405; U0004

== ENCOUNTER 2019-08-11 13:51 | Emergency (ER) | payer MEDICARE, MEDICAID, SELFPAY ==
[2019-08-03 18:06] VITALS: BMI 22.6
[2019-08-11 13:52] VITALS: BP 145/82; PULSE 84; RESP 15; TEMP 37; O2SAT 97; BMI 22.9
--- NOTE | 2019-08-11 14:27 | ED.VIS.GEN ---
History of Present Illness Chief Complaint: Abscess Informant: Patient Narrative: Patient states that 2 days ago he began to notice a pimple in the left maxillary face region alongside his betancourt line. He states he has been squeezing it but not month and has really been coming out. It continues to enlarge and is painful for him. He denies any dental pain. No fevers. He denies any history of prior abscesses. Past Medical History - Allergies and Home Meds Allergies/Adverse Reactions: Allergies Penicillins Allergy (Verified 08/11/19 13:52) Unknown sulfamethoxazole [From Bactrim] Allergy (Verified 08/11/19 13:52) Swelling trimethoprim [From Bactrim] Allergy (Verified 08/11/19 13:52) Swelling Primary Care Physician: Aman Cabral MD [Primary Care Provider] - Surgical History: pacemaker implantation, - - prosthetic right eye, Rt upper arm AVF, right adrenal gland removal for unknown reason Smoking Status: Former smoker - Family History Maternal Family History: Reports: Diabetes Paternal Family History: Reports: Heart Disease Review of Systems General: Denies: Chills, Fever, Sweats Eyes: Denies: Visual changes - bilaterally, Diplopia ENT: Denies: Rhinorrhea, Sore throat Cardiovascular: Denies: Chest pain, Palpitations Respiratory: Denies: Dyspnea, Cough, Dyspnea on exertion Gastrointestinal: Denies: Abdominal pain, Nausea, Vomiting, Diarrhea, Melena, Hematochezia Genitourinary: Denies: Dysuria, Hematuria, Frequency Musculoskeletal: Denies: Back pain, Extremity Pain Skin: Reports: Abscess. Denies: Rash, Wounds Neurological: Denies: Headache, Weakness, Numbness Physical Exam Vital Signs/Narrative: Vital Signs Temp Pulse Resp BP Pulse Ox 08/11/19 13:52 98.6 F 84 15 145/82 H 97 Inital Vital Signs reviewed: Yes General: Well nourished, Well developed, No Acute Distress Head: Normocephalic, Atraumatic Eyes: Perrl, EOMI ENT: Moist mucous membranes, No rhinorrhea Neck: Supple, Nontender Cardiovascular: Regular rate, Regular rhythm, No murmurs Respiratory: No distress, CTA bilaterally, Chest nontender Abdomen: Soft, Nontender, Nondistended, Normal bowel sounds Back: Nontender, Normal Inspection Extremities: Nontender, No edema Skin: Normal color, No rash, - - Located along the left betancourt line in the maxillofacial region is a firm area of swelling with a pointing pustule with a diameter of approximately 5 mm. No significant surrounding erythema Neurological: Alert, Oriented x3, Cranial nerves II-XII grossly intact, Normal Strength, Normal Sensation Psychological: Normal affect, Normal Mood Diagnostic/Tx/Re-eval - Medical Decision Making Wound area was washed with Betadine. After allowing it to dry the area was locally anesthetized using 1% lidocaine. A 3 mm incision was made with an 11 blade. Return of thick purulent material was obtained. Wound was probed and a small pocket was found. A small amount of pus from this pocket returned. Wound was irrigated. A small amount of packing about 1 inch of 4 inch iodoform gauze was placed. Patient will be placed on doxycycline he has an allergy to Bactrim. I will write for ibuprofen and [place] for pain. He can remove the packing in 3 days if he would like or follow-up with primary care for wound check. If he is worsening he can return to emergency department patient notes understanding of plan ED Disposition - Plan for ED Patient: Disposition: Home or Assisted Living Diagnosis: Facial abscess Instructions: ED Abscess Incision And Drainage Prescriptions: Doxycycline 100 mg PO BID #20 cap Transmission Status: Pending to [facility][id number] Ibuprofen [Motrin] 800 mg PO TID PRN PRN #20 tab PRN Reason: pain Transmission Status: Pending to [facility][id number] Hydrocodone Bitart/Apap 5-325 [[place] 5MG-325MG] 1 tablet PO Q6H PRN PRN 3 Days #10 tablet PRN Reason: Pain Transmission Status: Sent to [facility] #[id number] Referrals: Aman Cabral MD [Primary Care Provider] - (IN 3 DAYS FOR WOUND CHECK) Additional Instructions: You may remove the packing on Saturday morning while in the shower if you would like. You may also see your primary care physician for packing removal or he can return to the emergency department for wound check. Feel free to return to the emergency department if you have any concerns.
[2019-08-11] MEDS: HYDROcodone Bitartrate/Apap 5/325 Tablet PO (14:50)
== END 2019-08-11 14:52 | disposition home or self-care (01) ==
LOC: ED 14:43
PROVIDERS: Emergency Provider Emergency Medicine; PCP Internal Medicine
DX: L02.01 Cutaneous abscess of face (principal); Z95.0 Presence of cardiac pacemaker; Z87.891 Personal history of nicotine dependence
CPT/HCPCS: 10061; 10060; 99283

== ENCOUNTER 2019-08-20 11:18 | Emergency (ER) | payer MEDICARE, MEDICAID, SELFPAY ==
[2019-08-20 11:19] VITALS: BP 148/78; PULSE 73; RESP 16; TEMP 36.2; O2SAT 98; BMI 23.4
--- NOTE | 2019-08-20 11:40 | ED.VISSUMM ---
- ER Visit Summary Date of Service: 08/20/19 Chief Complaint: Left facial abscess History of Present Illness: The patient is a 58 M history of current myopathy, anemia, A. fib, end-stage renal disease with dialysis and a known pacemaker defibrillator. Patient states he had left facial abscess for about a week. He was seen in this emergency department had it I&D and was placed on antibiotics. States he still is on the antibiotics. He says he thinks is getting better but it has not resolved and he was wondering if it needed to be drained again. He said it was packed but that the packing came out before he was told to take it out. He denies any fever he denies any pain. Physical Examination: Middle-aged male no acute distress vital signs are stable afebrile. H EENT exam unremarkable except left cheek below his eye not involving the eye itself there is about a quarter sized abscess. It is already been I&D. There appears to be a hematoma from him squeezing the area. I do not see any obvious nor can I express any pus. There is no cellulitis. Is not specifically tender. Neck nontender no lymphadenopathy. Lungs clear to auscultation. Heart regular rhythm no murmur. Abdomen soft nontender. Patient is moving all 4 extremities. Is a right dialysis shunt in his upper arm. Good thrill. Neurologically is awake and alert. Test Results: None Emergency Department Course and Treatment: Nurses are placed let over his facial abscess. I think this is more likely hematoma. I will aspirated if I get pus out I will then open it if there is no pus he will continue his current antibiotics and warm compresses. After let was on his left facial swelling for about 20 minutes I aspirated the area with a 21-gauge needle and there was absolutely no pus or discharge or blood at this time. I explained to the patient I do not think this is a recurrence of his abscess but more so a hematoma or just swelling. He knows to return if worse and otherwise we will do compresses. This should improve over the next 1 to 2 weeks. Treatment Plan: Warm Compresses. Tylenol for pain. Finish antibiotics. Return if worsening such as getting larger, cellulitis or fever. Disposition: Discharge Impression: Left facial hematoma status post recent left facial abscess I&D by ER 1 week ago This note was generated with [employer] software. It may contain incorrect words, spelling, and punctuation that were not noted in review of the chart prior to signing ED Disposition - Plan for ED Patient: Referrals: Aman Cabral MD [Primary Care Provider] -
[2019-08-20] MEDS: Lidocaine/Epi/Tetracaine 50 ML 1 APPLIC TOPICAL (12:09)
--- NOTE | 2019-08-20 12:49 | ED.DEP ---
ED Disposition - Plan for ED Patient: Disposition: Home or Assisted Living Instructions: ED Hematoma Referrals: Aman Cabral MD [Primary Care Provider] - 1 Week if not improving Additional Instructions: Warm compresses to your left cheek where the swelling is. Currently there is no signs of infection or pus at this time. This should improve. Do not squeeze it anymore. Tylenol for pain. Finish your antibiotics. Follow-up with your doctor if not improving.
== END 2019-08-20 12:58 | disposition home or self-care (01) ==
PROVIDERS: Emergency Provider Emergency Medicine; PCP Internal Medicine
DX: S00.83XA Contusion of other part of head, initial encounter (principal); X58.XXXA Exposure to other specified factors, initial encounter; L02.01 Cutaneous abscess of face; I48.91 Unspecified atrial fibrillation; I42.9 Cardiomyopathy, unspecified; N18.6 End stage renal disease; D63.1 Anemia in chronic kidney disease; Z99.2 Dependence on renal dialysis; Z95.810 Presence of automatic (implantable) cardiac defibrillator; Z79.899 Other long term (current) drug therapy; Z72.0 Tobacco use
CPT/HCPCS: 10060; 99282

== ENCOUNTER 2019-08-30 22:05 | Inpatient (IN) | payer MEDICARE, MEDICAID, SELFPAY ==
[2019-08-27 13:10] VITALS: BMI 22.5
[2019-08-30 22:05] VITALS: BP 164/106; PULSE 89; RESP 30; TEMP 36.8; O2SAT 93; BMI 23.4
[2019-08-30 22:08] VITALS: BP 164/106; PULSE 89; RESP 30; TEMP 36.8; O2SAT 93
--- NOTE | 2019-08-30 22:21 | EKG12_ITS ---
Test Reason : SOB Blood Pressure : / mmHG Vent. Rate : 086 BPM Atrial Rate : 086 BPM P-R Int : 182 ms QRS Dur : 134 ms QT Int : 466 ms P-R-T Axes : 064 077 127 degrees QTc Int : 557 ms Suspect unspecified pacemaker failure Atrial-sensed ventricular-paced rhythm Abnormal ECG Confirmed by MODESTA DINH, MEHDI ([id number]), editor farm journal BHAVANI JEREZ ([id number]) on 09/01/2019 9:04:08 AM Referred By: Clinton Max Confirmed By:MEHDI BYERS MD
--- NOTE | 2019-08-30 22:21 | RAD_ITS ---
STUDY: X-RAY CHEST REASON FOR EXAM: Male, 58 years old. Shortness of breath and cough since Saturday. TECHNIQUE: 2 frontal images of the chest were obtained. COMPARISON: August 03, 2019 FINDINGS: There are bilateral ill-defined opacities within the mid and lower lungs.. There is cardiomegaly. There is a grossly stable cardiac pacer device in place. Normal mediastinum and anselmo. Normal visualized pulmonary arteries. Normal visualized aortic arch and descending thoracic aorta. Normal visualized thoracic spine. Normal visualized ribs, clavicles, and shoulders. There is no demonstrated abnormality of the visualized soft tissue structures of the upper abdomen. RAD/Chest 1 View (Portable) IMPRESSION: Nonspecific ill-defined opacities within the mid and lower lungs may be secondary to underlying atelectasis and/or pneumonia. Cardiomegaly. Electronically Signed: Ryann Ortiz MD at 23:06 EDT Tel , Service support ,
[2019-08-30 22:31] LABS: Absolute Lymphocyte Count 1.22 X10^3/uL (0.83-4.51); Absolute Neutrophil Count 4.2 X10^3/uL (2.0-7.7); Basophil# 0.05 X10^3/uL; Basophil% 0.8 % (0-1); Eosinophils% 3.3 % (0-5); Hematocrit 31.7 % (40-54); Hemoglobin 9.8 g/dL (13.0-16.5); Lymphocyte # 1.22 X10^3/ul (4.0); Lymphocyte % 20.2 % (19-41); Mean Corp Hgb Conc 30.9 g/dL (32-36); Mean Corpuscular Volume 96.9 fL (80-94); Mean Platelet Vol. 10.5 fl (6.2-12.0); Monocyte# 0.36 X10^3/uL; NRBC Flagged by Analyzer 0 % (0-5); Neutrophil # 4.18 X10^3/uL (2.7-7.7); Neutrophil % 69.4 % (47-70); Platelet Count 158 K/mm3 (150-450); RBC Distribution Width CV 15.3 % (11.6-14.6); RBC Distribution Width SD 54.1 fl (35.1-43.9); Red Blood Count 3.27 M/mm3 (4.6-6.2)
--- NOTE | 2019-08-30 22:40 | ED.DCSUM_ITS ---
- ER Visit Summary Date of Service: 08/30/19 Chief Complaint: [Shortness of breath] History of Present Illness: The patient is a 58 M [presents the emergency department complaint of shortness of breath that started 3 days ago. Patient denies any chest pain. Patient states of breathing difficulty started after dialysis 3 days ago. Patient denies fever although he has had a little bit of a cough and sniffles he states. He denies sore throat or body aches. He has had no known exposures to COVID-19. Patient does have history of CHF, hypertension, high cholesterol, A. fib, seizure disorder, and end-stage renal disease. Patient denies recent travel or surgery.] Physical Examination: [HEENT-PERRLA, EOMI. Cranial nerves II through XII grossly intact. TMs clear. Mucous membranes moist. No adenopathy. Cardiovascular-regular rate and rhythm without murmur or ectopy Lungs-diminished breath sounds in the bases. Patient has some rales in the bases. Mild tachypnea. No accessory muscle use or retractions. Abdomen-normoactive bowel sounds, soft, nontender, no rebound or rigidity, no peritoneal signs. Extremities-intact ?4, normal range of motion, normal pulses, atraumatic] Test Results: [EKG obtained arrival showed atrially sensed and ventricularly paced rhythm with a ventricular rate of 86 bpm. CBC with differential showed a white count of 6.0, hemoglobin 9.8, hematocrit 32, platelet 158. Chemistries unremarkable. BUN was 46 and creatinine 11.5. Troponin was 0.122. Chest x-ray showed ill-defined opacities mid and lower lungs which could be pneumonia. Patient had a COVID-19 test that was negative.] Emergency Department Course and Treatment: [IV line established on arrival. Patient had blood cultures ordered. Patient was started on Levaquin 750 mg IV.] Treatment Plan: [Admit] Disposition: [Admit] Impression: [Dyspnea Pneumonia Elevated troponin-rule out acute coronary syndrome Exertional dyspnea Chronic renal failure] This note was generated with [employer] software. It may contain incorrect words, spelling, and punctuation that were not noted in review of the chart prior to signing ED Disposition - Plan for ED Patient: Referrals: Aman Cabral MD [Primary Care Provider] -
[2019-08-30 22:53] LABS: Lactic Acid 1.1 mmol/L (0.4-1.9)
[2019-08-30 22:56] LABS: Anion Gap 9 (5-15); BUN 46 mg/dL (7-18); Calcium,Total 7.5 mg/dL (8.5-10.1); Chloride 108 mmol/L (98-107); EST Glomerular Filtration Rate 5 mL/min (>60); Est Glom Filt Rate - Afr Amer 6 mL/min (>60); Estimated Creatinine Clearance 6.92 ml/min; Glucose 91 mg/dL (74-106); Potassium 4.5 mmol/L (3.5-5.1); Sodium Level 143 mmol/L (136-145)
[2019-08-30 23:20] VITALS: BP 158/100; PULSE 87; RESP 25; TEMP 36.8; O2SAT 92
[2019-08-30 23:46] VITALS: O2SAT 88; O2SAT 95
[2019-08-31] VITALS (19 sets, daily range): BP systolic 144–168; BP diastolic 79–103; PULSE 69–101; RESP 16–34; TEMP 35.9–36.9; O2SAT 92–100; BMI 23.1
[2019-08-31] MEDS: Benzonatate 100 MG Capsule PO (00:01)
--- NOTE | 2019-08-31 00:58 | PCM.HP.STD ---
Problem List (1) Essential hypertension Status: Chronic (2) Paroxysmal atrial fibrillation Status: Chronic (3) Dilated cardiomyopathy Status: Chronic (4) Dyspnea Status: Acute Qualifiers: Dyspnea type: unspecified Qualified Code(s): R06.00 - Dyspnea, unspecified (5) Elevated troponin Status: Acute (6) Presence of biventricular implantable cardioverter-defibrillator Status: Chronic (7) Supraventricular dysrhythmia Status: Chronic (8) Acute on chronic congestive heart failure Status: Acute Qualifiers: Heart failure type: combined systolic and diastolic Qualified Code(s): I50.43 - Acute on chronic combined systolic (congestive) and diastolic (congestive) heart failure (9) Hyperlipidemia Status: Chronic Qualifiers: Hyperlipidemia type: unspecified Qualified Code(s): E78.5 - Hyperlipidemia, unspecified (10) Seizure disorder Status: Chronic (11) Anemia of chronic disease Status: Chronic (12) Cardiomyopathy Status: Chronic Qualifiers: Cardiomyopathy type: dilated Qualified Code(s): I42.0 - Dilated cardiomyopathy (13) CHF (congestive heart failure) Status: Chronic Qualifiers: Heart failure type: systolic Heart failure chronicity: chronic Qualified Code(s): I50.22 - Chronic systolic (congestive) heart failure (14) ESRD (end stage renal disease) on dialysis Status: Chronic History of Present Illness Date of Admission: 08/31/19 Chief Complaint: sob The patient is a 58 year old M with a significant history of congestive heart failure; permanent pacemaker with ICD; and paroxysmal A. fib who presents at the emergency department with a two-week history of persistent shortness of breath. His shortness of breath is mild at rest. It increases markedly with exertion. Associated with his symptoms is productive cough of white and yellow sputum. He reports chronic two-pillow orthopnea; and paroxysmal nocturnal dyspnea. He denies knowingly coming to contact with anybody with COVID. Patient saw his roofing subcontractor at the office on 08/27/2019. His roofing subcontractor is Dr. Rasta Kitchen. Past Medical History Past Medical History (Chronic Problems): Chronic Problems (Last Reviewed 08/31/19 @ 03:[address] Clinton Max MD) Essential hypertension (Chronic) Paroxysmal atrial fibrillation (Chronic) Dilated cardiomyopathy (Chronic) Presence of biventricular implantable cardioverter-defibrillator (Chronic) Supraventricular dysrhythmia (Chronic) Hyperlipidemia (Chronic) Seizure disorder (Chronic) Anemia of chronic disease (Chronic) Cardiomyopathy (Chronic) CHF (congestive heart failure) (Chronic) ESRD (end stage renal disease) on dialysis (Chronic) Medical History: Medical History (Last Reviewed 08/31/19 @ 03:[address] Clinton Max MD) Essential hypertension (Chronic) I10 Paroxysmal atrial fibrillation (Chronic) I48.0 Dilated cardiomyopathy (Chronic) I42.0 Dyspnea (Acute) R06.00 Elevated troponin (Acute) R79.89 Presence of biventricular implantable cardioverter-defibrillator (Chronic) Z95.810 Supraventricular dysrhythmia (Chronic) I49.9 Acute on chronic congestive heart failure (Acute) I50.9 Hyperlipidemia (Chronic) E78.5 Seizure disorder (Chronic) G40.909 Anemia of chronic disease (Chronic) D63.8 Cardiomyopathy (Chronic) I42.9 CHF (congestive heart failure) (Chronic) I50.9 ESRD (end stage renal disease) on dialysis (Chronic) N18.6, Z99.2 Allergies Penicillins Allergy (Verified 08/27/19 13:10) Unknown sulfamethoxazole [From Bactrim] Allergy (Verified 08/27/19 13:10) Swelling trimethoprim [From Bactrim] Allergy (Verified 08/27/19 13:10) Swelling Home Medications: Ambulatory Orders Medication Instructions Recorded Calcium Acetate [Phoslo Gel Cap] 1,334 mg PO TIDCM 03/08/14 Loperamide [Imodium] 2 - 4 mg PO Q6H PRN PRN 08/21/16 Allopurinol [Zyloprim] 100 mg PO DAILYCM 02/18/18 Tamsulosin HCl [Flomax] 0.4 mg PO DAILY 02/18/18 Simvastatin 20 mg PO QHS 04/14/18 Furosemide 40 mg PO BID 11/05/18 Melatonin 5 mg PO QHS 11/05/18 Nitroglycerin 0.4 mg SL PRN PRN 11/05/18 DiphenhydrAMINE [Benadryl] 25 mg PO TID PRN PRN 11/26/18 Acetaminophen [Tylenol] 650 mg PO Q8H PRN PRN #30 cap 12/03/18 traMADol [Ultram] 50 mg PO Q8H PRN PRN 12/26/18 lisinopril 2.5 mg tablet 2.5 mg PO DAILY #90 tab 03/03/19 Cinacalcet HCl [Sensipar] 30 mg PO DAILY 05/13/19 Hydroxyzine HCl 25 mg PO Q8H 05/13/19 proMETHazine tablet [Phenergan 25 mg PO Q6H PRN PRN #10 tab 07/30/19 tablet] Omeprazole 1 cap PO DAILY PRN 08/03/19 Ibuprofen [Motrin] 800 mg PO TID PRN PRN #20 tab 08/11/19 carvedilol 6.25 mg tablet 12.5 mg PO BID #120 tab 08/27/19 Doxycycline 100 mg PO BID 08/31/19 Surgical History: pacemaker implantation, - - prosthetic right eye, Rt upper arm AVF, right adrenal gland removal for unknown reason Psychiatric History: No pertinent psych hx Smoking Status: Former smoker - Reports quitting smoking 2 weeks ago. - *Family History Maternal History Items: Diabetes Paternal History Items: Heart Disease Review of Systems Constitutional: Denies: Chills, Fever, Weight Change HEENT: Denies: Head Aches, Sinus Congestion, Sinus Drainage Cardiovascular: Denies: Chest Pain, Palpitations Respiratory: Reports: Cough, Shortness of Breath, Sputum production Gastrointestinal: Denies: Abdominal Pain, Nausea, Vomiting Genitourinary: Denies: Dysuria Musculoskeletal: Denies: Joint Pain, Joint Tenderness Skin: Denies: Rash, Wounds Neurological: Denies: Numbness, Tingling, Focal weakness Psychiatric: Denies: Anxiety, Depression, Homicidal Ideations, Suicidal Ideations Hematologic/ Lymphatic: Denies: Easy Bruising, Easy Bleeding VTE Information - Inpt Only VTE Present on Admission: No VTE Mechan Device Prophylaxis: None VTE Pharm Prophylaxis ordered?: Yes - Physical Exam Vitals/I&O's: Vital Signs Temp Pulse Resp BP Pulse Ox 98.1 F 86 21 H 149/84 H 95 08/31/19 00:02 08/31/19 00:02 08/31/19 00:02 08/31/19 00:02 08/31/19 00:02 Oxygen Flow Rate (L/min) 2 Oxygen Delivery Method Nasal Cannula Weight: 72.121 kg Body Mass Index (BMI) 23.4 Finger Stick Blood Glucose 95 General: Alert, Oriented x3, Cooperative HEENT: Atraumatic, PERRLA, EOMI, Normocephalic Neck: Supple, Trachea Midline Lungs: Clear to auscultation, Normal air movement Cardiovascular: Regular rate, Normal S1, Normal S2, No murmurs Abdomen: Bowel Sounds Present, Soft, Non Tender Extremities: No edema, Capillary Refill Less than 3 Seconds Skin: No rashes, No breakdown Musculoskeletal: No Tenderness to Palpation of Joints or Extremities Neurological: Cranial nerves II-XII grossly intact Psych/Mental Status: Normal Affect, Appropriate Laboratory Results 08/30/19 22:10: WBC 6.0, RBC 3.27 L, Hgb 9.8 L, Hct 31.7 L, MCV 96.9 H, MCH 30.0, MCHC 30.9 L, RDW Std Deviation 54.1 H, RDW Coeff of Dharmesh 15.3 H, Plt Count 158, MPV 10.5, Immature Gran % (Auto) 0.300, Neut % (Auto) 69.4, Lymph % (Auto) 20.2, [place] % (Auto) 6.0, Eos % (Auto) 3.3, Baso % (Auto) 0.8, Absolute Neuts (auto) 4.2, Absolute Lymphs (auto) 1.22, Nucleated RBC % 0 08/30/19 22:10: Sodium 143, Potassium 4.5, Chloride 108 H, Carbon Dioxide 26.0, Anion Gap 9, BUN 46 H, Creatinine 11.50 H*, Estim Creat Clear Calc 6.92, Est GFR (MDRD) Af Amer 6 L, Est GFR (MDRD) Non-Af 5 L, BUN/Creatinine Ratio 4.0 L, Glucose 91, Calcium 7.5 L, Troponin I 0.122 H 08/30/19 22:10: Lactic Acid 1.1 08/30/19 22:30: COVID-19 (ZANE) Not Detected Current Medications Levofloxacin (Levaquin Iv) 750 mg in 150 mls @ 100 mls/hr IV X1 ONE Stop: 08/31/19 01:52 Assessment/Plan All Active Problems (Last Reviewed 08/31/19 @ 03:[address] Clinton Max MD) Dyspnea (Acute) Elevated troponin (Acute) Acute on chronic congestive heart failure (Acute) The patient is a 58 year old M with a significant history of congestive heart failure; permanent pacemaker with ICD; and paroxysmal A. fib who presents at the emergency department with a two-week history of persistent shortness of breath: and productive cough. Acute on chronic heart failure with reduced ejection fraction Review of old records shows an echocardiogram done on 12/27/2018. Estimated ejection fraction was 10%. Patient had a stage III diastolic dysfunction. There was severe global hypokinesis of the left ventricle. Reading from Dr. Kitchen note patient was to have a follow-up transthoracic echocardiogram. While inpatient we will order echocardiogram. A chest x-ray was interpreted by radiologist as nonspecific ill-defined opacities within the mid and lower lungs may be secondary to underlying atelectasis and/or pneumonia. Independent review of actual chest x-ray imaging: Current chest x-ray is not different from previous chest x-ray. His chest x-ray generally shows nonspecific opacities. Patient has no fever or he has no white counts. Received Levaquin at the emergency department for pneumonia. Suspicion for pneumonia is low at this time. Will treat patient for heart failure. Previously he was on p.o. Lasix. He reports that at this time nobody prescribes Lasix for him. We will give Lasix 40 mg IV x1. Patient has end-stage renal disease but he is not anuric. He has dialysis Wednesdays and Fridays. Consult narcotics and/or vice detective for dialysis. Consider maintenance dose p.o. Lasix after dialysis. Carvedilol and lisinopril continued. Placed on fluid restriction of thousand 500 MLS per day. 2 g sodium diet; low phosphate and low potassium diet. From review of Dr. Kitchen notes patient thoughts he needs oxygen therapy. On examination patient was requesting that he be prescribed oxygen for nighttime. Consider continue nighttime oximetry while inpatient. End-stage renal disease on dialysis Patient get dialysis Saturday and Saturday. Nephrology consult. Continue calcium acetate. Elevated troponin Chronic. Like secondary to CKD and congestive heart failure. Trend. Hypocalcemia Calcium presentation was 7.5. Hold home Sensipar. Trend BMP BPH/urinary retention: Flomax continued Gout: Allopurinol continued. Tobacco abuse: Reports quitting smoking about 2 weeks ago. Counseled DVT prophylaxis Subcutaneous heparin ordered. Inpatient E&M: [id number] Init Hosp L3
[2019-08-31] MEDS: levoFLOXacin IV 750 MG/150 ML BAG 100 MG IV (01:01)
--- NOTE | 2019-08-31 02:13 | ECHOD_ITS ---
Version 2 Reason For Study: DYSPNEA Procedure This was a 2D Doppler, Color Flow transthoracic echocardiogram. The exam was of adequate technical quality. Exam performed portable in patient room. Left Ventricle Moderately dilated left ventricle. Severe segmental systolic dysfunction (see wall motion). The estimated ejection fraction is 10 %. There is evidence of diastolic dysfunction. Anterio-Basal: Severely hypokinetic. Lateral-Basal: Severely Hypokinetic. Posterior-Basal: Severely hypokinetic. Infero-Basal: Severely Hypokinetic. Basal inferoseptal: Akinetic. Basal anteroseptal: Akinetic. Mid- Anterior : Severely Hypokinetic. Mid-Lateral : Severely Hypokinetic. Mid-Posterior: Akinetic. Mid- Inferior: Akinetic. Mid-inferoseptal : Akinetic. Mid-anteroseptal : Akinetic. Anterior Meridian : Akinetic. Inferior Meridian : Severely Hypokinetic. Lateral Meridian : Severely Hypokinetic. Septal Meridian : Akinetic. Right Ventricle Normal RV size. ICD or pacer leads identified within the right ventricle. Mild global right ventricular systolic dysfunction. Atria The left atrium is moderately enlarged. Normal right atrium. ICD or pacer leads identified within the right atrium. No doppler evidence for ASD. Mitral Valve There is no mitral annular calcification. Mild diffuse mitral valve thickening. Mild (1+) mitral valve insufficiency. Tricuspid Valve Normal tricuspid valve. Moderate (2+) eccentric tricuspid valve insufficiency. Right ventricular systolic pressure estimated to be 61 mmHg. Aortic Valve Trisinus/trileaflet aortic valve. Mild diffuse aortic valve thickening. Mild focal aortic valve calcification. Pulmonic Valve The pulmonic valve is not well visualized. Trivial pulmonic valve insufficiency. Great Vessels Normal sized aortic root. Pericardium/Pleural No pericardial effusion. MMode/2D Measurements & Calculations LVIDd: 6.1 cm IVSd: 1.0 cm Ao root diam: 3.3 cm LVIDs: 5.5 cm LVPWd: 1.9 cm FS: 8.9 % LAV(MOD-bp): 117.4 ml LVAd ap4: 49.8 cm2 SV(MOD-sp4): 22.7 ml LAV(MOD-bp) Indexed: 63.2 ml/m2 EDV(MOD-sp4): 211.1 ml LAV(MOD-sp2): 149.1 ml EDV(sp4-el): 214.6 ml LAV(MOD-sp4): 86.5 ml LVAs ap4: 43.6 cm2 ESV(MOD-sp4): 188.4 ml ESV(sp4-el): 187.6 ml EF(MOD-sp4): 10.8 % EF(sp4-el): 12.6 % SV(sp4-el): 26.9 ml LA A4 area: 26.7 cm2 LA dimension(2D): 5.5 cm RA A4 area: 14.8 cm2 Time Measurements MV dec time: 0.10 sec Doppler Measurements & Calculations MV E max alvaro: 117.7 cm/sec Lat Peak E' Alvaro: 4.7 cm/sec Med Peak E' Alvaro: 5.6 cm/sec MV A max alvaro: 71.3 cm/sec E/E' lat: 25.0 E/E' med: 21.2 MV E/A: 1.7 Ao V2 max: 121.5 cm/sec LV V1 max: 80.8 cm/sec PA V2 max: 66.7 cm/sec Ao max P.0 mmHg LV V1 max P.6 mmHg TR max alvaro: 376.2 cm/sec TR max P.7 mmHg Interpretation Summary Moderately dilated left ventricle. Severe segmental systolic dysfunction (see wall motion). The estimated ejection fraction is 10 %. Mild global right ventricular systolic dysfunction. The left atrium is moderately enlarged. Mild diffuse mitral valve thickening. Mild (1+) mitral valve insufficiency. Moderate (2+) eccentric tricuspid valve insufficiency. Mild diffuse aortic valve thickening. Mild focal aortic valve calcification. Trivial pulmonic valve insufficiency. Right ventricular systolic pressure estimated to be 61 mmHg. There is evidence of diastolic dysfunction. ICD or pacer leads identified within the right atrium ICD or pacer leads identified within the right ventricle. 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 Ordering Physician: Clinton Max Referring Physician: Aman Cabral M.D. Performed By: Racheal Araiza RDCS, RVT
--- NOTE | 2019-08-31 04:41 | NURSING ---
Multiple attempts made to gain IV access. This RN, chargeback specialist, ED RN, and nursing steffen house supervisor all unable to get IV access. Physician aware.
[2019-08-31] MEDS: Furosemide 20 MG Tablet 60 MG PO (05:04)
[2019-08-31] MEDS: Heparin Injection (Vial) 5,000 UNIT/ML VIAL 5000 UNIT SC ×2 (05:06→21:35)
[2019-08-31 06:29] LABS: Absolute Lymphocyte Count 1.18 X10^3/uL (0.83-4.51); Absolute Neutrophil Count 3.9 X10^3/uL (2.0-7.7); Basophil# 0.07 X10^3/uL; Basophil% 1.2 % (0-1); Eosinophil# 0.22 X10^3/uL; Eosinophils% 3.8 % (0-5); Hematocrit 31.7 % (40-54); Hemoglobin 9.9 g/dL (13.0-16.5); Lymphocyte # 1.18 X10^3/ul (4.0); Lymphocyte % 20.3 % (19-41); Mean Corp Hgb Conc 31.2 g/dL (32-36); Mean Corpuscular Hgb 30.3 pg (27.0-32.0); Mean Corpuscular Volume 96.9 fL (80-94); Mean Platelet Vol. 10.6 fl (6.2-12.0); Monocyte# 0.37 X10^3/uL; Monocyte% 6.4 % (0-10); NRBC Flagged by Analyzer 0 % (0-5); Neutrophil # 3.94 X10^3/uL (2.7-7.7); Platelet Count 152 K/mm3 (150-450); RBC Distribution Width CV 15.4 % (11.6-14.6); RBC Distribution Width SD 53.6 fl (35.1-43.9); Red Blood Count 3.27 M/mm3 (4.6-6.2); White Blood Count 5.8 K/mm3 (4.4-11.0)
[2019-08-31 06:59] LABS: Anion Gap 9 (5-15); BUN 51 mg/dL (7-18); BUN/Creat Ratio 4.1 RATIO (10-20); Calcium,Total 7.6 mg/dL (8.5-10.1); Chloride 109 mmol/L (98-107); EST Glomerular Filtration Rate 4 mL/min (>60); Est Glom Filt Rate - Afr Amer 5 mL/min (>60); Estimated Creatinine Clearance 6.41 ml/min; Glucose 93 mg/dL (74-106); Potassium 4.3 mmol/L (3.5-5.1); Sodium Level 144 mmol/L (136-145)
[2019-08-31] MEDS: Calcium Acetate 667 MG Capsule 1334 MG PO (08:03)
[2019-08-31] MEDS: Allopurinol 100 MG Tablet PO (08:03)
[2019-08-31] MEDS: Tamsulosin HCl 0.4 MG Capsule PO (10:15)
[2019-08-31] MEDS: hydrOXYzine PAM 25 MG Capsule PO (10:15)
[2019-08-31] MEDS: Lisinopril 2.5 MG Tablet PO (10:15)
[2019-08-31] MEDS: Carvedilol 12.5 MG Tablet PO ×2 (10:15→21:35)
[2019-08-31] MEDS: Ondansetron ODT 4 MG Tablet PO ×3 (11:38→22:48)
--- NOTE | 2019-08-31 11:43 | CASEMGMT ---
ENRIQUE REIS assessment: Face to Face with patient for initial transition planning/care coordination assessment. ENRIQUE REIS introduced self and role at [facility], pt voices understanding and consents to assessment at this time. Pt is lying in bed in no distress at this time. Pt is A/Ox4 at this time and answers all questions appropriately at this time. cosmetic sales advisor at bedside getting ready to start dialysis on pt at this time. Care providers, pharmacy, and demographics verified at this time. Presentation: SOB w/ cough since saturday Admitting dx: Acute on Chronic systolic/diastolic heart failure PCP: Misha Specialists: tim Spencer Preferred Pharmacy: [facility] [employer] [facility] community plan Prescription Benefit: Yes Living Will/HPOA: Pt states no LW/HPOA and declines AD info at this time. LNOK: Rasta Peterson, brother Living Arrangements: Pt states lives alone in 3rd floor apartment with elevator and states no concerns at home at this time. Pt states is independent with ADL's. Transportation: Pt states uses the following for transportation: [employer](for dialysis), family, [employer], and [employer]. DME/HHC: Pt states no current DME or need for any at this time. Pt states no hx of HHC or SNF in the past. Pt goes to [facility] and pt states has had a full run last saturday. Pt states no concerns with going home at time of discharge. Pt states is disabled. Pt states still smokes 1.5pk/day and does not drink ETOH. Pt states no further concerns/needs at this time. CM to follow for any further discharge planning/needs. Advised pt to ask for CM if any further questions/concerns/needs arise, voices understanding. Pt Goal: Home [place] ENRIQUE REIS
--- NOTE | 2019-08-31 11:43 | NURSING ---
copper plate lithographer Cieol in room preparing for tx
[2019-08-31] MEDS: Epoetin Alfa epbx 10,000 UNITS/ML 6200 UNIT IV (13:28)
[2019-08-31 14:36] LABS: Bedside Glucose 82 mg/dL (70-110)
--- NOTE | 2019-08-31 15:31 | CON.PCM_ITS ---
Consultation - Renal 08/31/19 PCP/ Referring MD: Requesting physician: [] Primary care physician: Dr. Aman Cabral MD Reason for Consultation:: ESRD - History of Present Illness History of Present Illness: The patient is a 58 year old M who was admitted to hospital with complaints of dyspnea. renal consulted for ESRD. ESRD on HD MWF schedule. last HD was saturday. left close to dry weight. says he has been dyspneic for about 2 weeks now. appetite is fair. severe CHF with reduced EF. no significant edema. - Allergies Allergies: Allergies Penicillins Allergy (Verified 08/27/19 13:10) Unknown sulfamethoxazole [From Bactrim] Allergy (Verified 08/27/19 13:10) Swelling trimethoprim [From Bactrim] Allergy (Verified 08/27/19 13:10) Swelling - Current Medications Current Medications: Current Medications Acetaminophen (Tylenol) 650 mg PO Q6H PRN PRN PRN Reason: Pain Score 1-10/Temp > 100.7 F Allopurinol (Zyloprim) 100 mg PO DAILYCM [facility] Last Admin: 08/31/19 08:03 Dose: 100 mg Documented by: Atorvastatin Calcium (Lipitor) 10 mg PO QHS [facility] Calcium Acetate (Phoslo Gel Cap) 1,334 mg PO TIDCM [facility] Last Admin: 08/31/19 13:21 Dose: Not Given Documented by: Carvedilol (Coreg) 12.5 mg PO BID [facility] Last Admin: 08/31/19 10:15 Dose: 12.5 mg Documented by: Dextrose (D50w Syringe) 0 gm IV X1 PRN; Protocol PRN Reason: Hypoglycemia Diphenhydramine HCl (Benadryl) 25 mg PO TID PRN PRN PRN Reason: ITCHING Glucagon () 1 mg IM .X1 PRN PRN Reason: Hypoglycemia Heparin Sodium (Porcine) (Heparin Na) 5,000 unit SC Q8 [facility] Last Admin: 08/31/19 13:21 Dose: Not Given Documented by: Hydroxyzine Pamoate (Vistaril Pamoate Capsule) 25 mg PO Q8H [facility] Last Admin: 08/31/19 10:15 Dose: 25 mg Documented by: Sodium Chloride () 250 mls @ 15 mls/hr IV .[id number] PRN PRN Reason: Saline Flush Sodium Chloride () 250 mls @ 15 mls/hr IV .[id number] PRN PRN Reason: Additional IVPB Infusion Lisinopril (Zestril) 2.5 mg PO DAILY [facility] Last Admin: 08/31/19 10:15 Dose: 2.5 mg Documented by: Melatonin (Melatonin) 5 mg PO QHS [facility] Ondansetron HCl (Zofran) 4 mg IV Q8H PRN PRN PRN Reason: NAUSEA/VOMITING Ondansetron HCl (Zofran Odt) 4 mg PO Q8H PRN PRN PRN Reason: NAUSEA/VOMITING Last Admin: 08/31/19 14:42 Dose: 4 mg Documented by: Pantoprazole Sodium (Protonix) 40 mg PO DAILY PRN PRN PRN Reason: HEARTBURN Sodium Chloride () 10 - 40 ml IV UD PRN PRN Reason: SALINE FLUSH Tamsulosin HCl (Flomax) 0.4 mg PO DAILY [facility] Last Admin: 08/31/19 10:15 Dose: 0.4 mg Documented by: - Past Medical History Past Medical History (Chronic Problems): Chronic Problems (Last Reviewed 08/31/19 @ 03:[address] Clinton Max MD) Essential hypertension (Chronic) Paroxysmal atrial fibrillation (Chronic) Dilated cardiomyopathy (Chronic) Presence of biventricular implantable cardioverter-defibrillator (Chronic) Supraventricular dysrhythmia (Chronic) Hyperlipidemia (Chronic) Seizure disorder (Chronic) Anemia of chronic disease (Chronic) Cardiomyopathy (Chronic) CHF (congestive heart failure) (Chronic) ESRD (end stage renal disease) on dialysis (Chronic) - Past Surgical History Surgical History: pacemaker implantation, - - prosthetic right eye, Rt upper arm AVF, right adrenal gland removal for unknown reason - Social History Smoking Status: Former smoker - Reports quitting smoking 2 weeks ago. - Family History Maternal History Items: Diabetes Paternal History Items: Heart Disease Review of Systems Constitutional: Reports: Anorexia, Weakness Respiratory: Reports: Shortness of Breath, Shortness of breath at rest - Physical Exam Vitals/I&O's: Vital Signs Temp Pulse Resp BP Pulse Ox 97.4 F L 70 16 164/97 H 99 08/31/19 15:00 08/31/19 15:00 08/31/19 15:00 08/31/19 15:00 08/31/19 15:00 Oxygen Flow Rate (L/min) 6 Oxygen Delivery Method Nasal Cannula Weight: 71.1 kg Body Mass Index (BMI) 23.1 Finger Stick Blood Glucose 95 Intake and Output for Last 24 Hours 08/29/19 08/30/19 08/31/19 23:59 23:59 23:59 Intake Total 326.70 / 326.70 Balance 326.70 / 326.70 General: Alert, Oriented x3, Cooperative HEENT: Atraumatic, PERRLA, EOMI, Normocephalic Neck: Supple, No JVD, Negative Carotid Bruits Lungs: Rales Cardiovascular: Regular rate, No murmurs Abdomen: Bowel Sounds Present, Soft, Non Tender Extremities: No edema, Capillary Refill Less than 3 Seconds Skin: No rashes, No breakdown Musculoskeletal: No Tenderness to Palpation of Joints or Extremities Neurological: Cranial nerves II-XII grossly intact Psych/Mental Status: Normal Affect, Appropriate Laboratory Results 08/30/19 22:10: WBC 6.0, RBC 3.27 L, Hgb 9.8 L, Hct 31.7 L, MCV 96.9 H, MCH 30.0, MCHC 30.9 L, RDW Std Deviation 54.1 H, RDW Coeff of Dharmesh 15.3 H, Plt Count 158, MPV 10.5, Immature Gran % (Auto) 0.300, Neut % (Auto) 69.4, Lymph % (Auto) 20.2, [place] % (Auto) 6.0, Eos % (Auto) 3.3, Baso % (Auto) 0.8, Absolute Neuts (auto) 4.2, Absolute Lymphs (auto) 1.22, Nucleated RBC % 0 08/30/19 22:10: Sodium 143, Potassium 4.5, Chloride 108 H, Carbon Dioxide 26.0, Anion Gap 9, BUN 46 H, Creatinine 11.50 H*, Estim Creat Clear Calc 6.92, Est GFR (MDRD) Af Amer 6 L, Est GFR (MDRD) Non-Af 5 L, BUN/Creatinine Ratio 4.0 L, Glucose 91, Calcium 7.5 L, Troponin I 0.122 H 08/30/19 22:10: Lactic Acid 1.1 08/30/19 22:30: COVID-19 (ZANE) Not Detected 08/31/19 03:30: Troponin I 0.101 H 08/31/19 06:10: WBC 5.8, RBC 3.27 L, Hgb 9.9 L, Hct 31.7 L, MCV 96.9 H, MCH 30.3, MCHC 31.2 L, RDW Std Deviation 53.6 H, RDW Coeff of Dharmesh 15.4 H, Plt Count 152, MPV 10.6, Immature Gran % (Auto) 0.300, Neut % (Auto) 68.0, Lymph % (Auto) 20.3, [place] % (Auto) 6.4, Eos % (Auto) 3.8, Baso % (Auto) 1.2 H, Absolute Neuts (auto) 3.9, Absolute Lymphs (auto) 1.18, Nucleated RBC % 0 08/31/19 06:10: Sodium 144, Potassium 4.3, Chloride 109 H, Carbon Dioxide 26.0, Anion Gap 9, BUN 51 H, Creatinine 12.40 H*, Estim Creat Clear Calc 6.41, Est GFR (MDRD) Af Amer 5 L, Est GFR (MDRD) Non-Af 4 L, BUN/Creatinine Ratio 4.1 L, Glucose 93, Calcium 7.6 L 08/31/19 06:10: Troponin I 0.119 H 08/31/19 14:31: POC Glucose 82 Current Medications Acetaminophen (Tylenol) 650 mg PO Q6H PRN PRN PRN Reason: Pain Score 1-10/Temp > 100.7 F [facility] Last Admin: 08/31/19 08:03 Dose: 100 mg Documented by: Atorvastatin Calcium (Lipitor) 10 mg PO QHS [facility] Calcium Acetate (Phoslo Gel Cap) 1,334 mg PO TIDCM [facility] Last Admin: 08/31/19 13:21 Dose: Not Given Documented by: Carvedilol (Coreg) 12.5 mg PO BID [facility] Last Admin: 08/31/19 10:15 Dose: 12.5 mg Documented by: Dextrose (D50w Syringe) 0 gm IV X1 PRN; Protocol PRN Reason: Hypoglycemia Diphenhydramine HCl (Benadryl) 25 mg PO TID PRN PRN PRN Reason: ITCHING Glucagon () 1 mg IM .X1 PRN PRN Reason: Hypoglycemia Heparin Sodium (Porcine) (Heparin Na) 5,000 unit SC Q8 [facility] Last Admin: 08/31/19 13:21 Dose: Not Given Documented by: Hydroxyzine Pamoate (Vistaril Pamoate Capsule) 25 mg PO Q8H [facility] Last Admin: 08/31/19 10:15 Dose: 25 mg Documented by: Sodium Chloride () 250 mls @ 15 mls/hr IV .[id number] PRN PRN Reason: Saline Flush Sodium Chloride () 250 mls @ 15 mls/hr IV .[id number] PRN PRN Reason: Additional IVPB Infusion Lisinopril (Zestril) 2.5 mg PO DAILY [facility] Last Admin: 08/31/19 10:15 Dose: 2.5 mg Documented by: Melatonin (Melatonin) 5 mg PO QHS [facility] Ondansetron HCl (Zofran) 4 mg IV Q8H PRN PRN PRN Reason: NAUSEA/VOMITING Ondansetron HCl (Zofran Odt) 4 mg PO Q8H PRN PRN PRN Reason: NAUSEA/VOMITING Last Admin: 08/31/19 14:42 Dose: 4 mg Documented by: Pantoprazole Sodium (Protonix) 40 mg PO DAILY PRN PRN PRN Reason: HEARTBURN Sodium Chloride () 10 - 40 ml IV UD PRN PRN Reason: SALINE FLUSH Tamsulosin HCl (Flomax) 0.4 mg PO DAILY [facility] Last Admin: 08/31/19 10:15 Dose: 0.4 mg Documented by: Assessment/Plan All Active Problems (Last Reviewed 08/31/19 @ 03:[address] Clinton Max MD) Dyspnea (Acute) Elevated troponin (Acute) Acute on chronic congestive heart failure (Acute) ESRD. HD today Anemia. KITTY with HD dyspnea. CXr reviewed. no very impressive for fluid overload. will challenge EDW. he did have a VQ scan last year which was negative
--- NOTE | 2019-08-31 16:09 | DIALYSIS ---
Tx discontinued 11 minutes early d/t pt c/o cramping. [place]F [place] 2793ml. Dr. Spencer was notified. Tolerated tx fairly well. Ran on 3k bath. Used right arm access. Sparkill removed post tx and pressure applied x 10 minutes. Hemostasis achieved. Fresh gauze and tape applied. See tx sheet for more details. Report was given to ENRIQUE Joshua.
[2019-08-31] MEDS: MELATONIN 10 MG TABLET 5 MG PO (21:34)
[2019-08-31] MEDS: Atorvastatin Calcium 10 MG Tablet PO (21:35)
[2019-08-31] MEDS: DiphenhydrAMINE 25 MG Capsule PO (22:50)
[2019-09-01] VITALS (9 sets, daily range): BP systolic 146–160; BP diastolic 78–92; PULSE 67–102; RESP 16; TEMP 36.7–36.9; O2SAT 94–100
[2019-09-01] MEDS: hydrOXYzine PAM 25 MG Capsule PO ×2 (02:30→10:33)
[2019-09-01] MEDS: Heparin Injection (Vial) 5,000 UNIT/ML VIAL 5000 UNIT SC (05:27)
[2019-09-01 05:37] LABS: Absolute Lymphocyte Count 0.88 X10^3/uL (0.83-4.51); Absolute Neutrophil Count 3.8 X10^3/uL (2.0-7.7); Basophil# 0.03 X10^3/uL; Basophil% 0.6 % (0-1); Eosinophil# 0.02 X10^3/uL; Eosinophils% 0.4 % (0-5); Hematocrit 36.2 % (40-54); Hemoglobin 11.3 g/dL (13.0-16.5); Lymphocyte # 0.88 X10^3/ul (4.0); Lymphocyte % 17.3 % (19-41); Mean Corp Hgb Conc 31.2 g/dL (32-36); Mean Corpuscular Hgb 30.1 pg (27.0-32.0); Mean Corpuscular Volume 96.5 fL (80-94); Mean Platelet Vol. 10.8 fl (6.2-12.0); Monocyte# 0.34 X10^3/uL; Monocyte% 6.7 % (0-10); NRBC Flagged by Analyzer 0 % (0-5); Neutrophil # 3.81 X10^3/uL (2.7-7.7); Neutrophil % 74.8 % (47-70); Platelet Count 145 K/mm3 (150-450); RBC Distribution Width CV 14.9 % (11.6-14.6); RBC Distribution Width SD 52.2 fl (35.1-43.9); Red Blood Count 3.75 M/mm3 (4.6-6.2); White Blood Count 5.1 K/mm3 (4.4-11.0)
[2019-09-01 05:51] LABS: Anion Gap 13 (5-15); BUN 37 mg/dL (7-18); BUN/Creat Ratio 4.1 RATIO (10-20); Calcium,Total 8.3 mg/dL (8.5-10.1); Chloride 98 mmol/L (98-107); Creatinine, Serum 8.93 mg/dL (0.70-1.30); EST Glomerular Filtration Rate 7 mL/min (>60); Est Glom Filt Rate - Afr Amer 8 mL/min (>60); Glucose 105 mg/dL (74-106); Potassium 4.5 mmol/L (3.5-5.1); Sodium Level 138 mmol/L (136-145)
--- NOTE | 2019-09-01 07:46 | CPS ---
pt decreased to 4 lpm...99%. Pt's nurse aware of change.
[2019-09-01] MEDS: Ondansetron ODT 4 MG Tablet PO (09:06)
[2019-09-01] MEDS: Calcium Acetate 667 MG Capsule 1334 MG PO ×2 (09:07→11:51)
[2019-09-01] MEDS: Allopurinol 100 MG Tablet PO (09:07)
[2019-09-01] MEDS: Tamsulosin HCl 0.4 MG Capsule PO (09:09)
[2019-09-01] MEDS: Carvedilol 12.5 MG Tablet PO (09:09)
[2019-09-01] MEDS: Lisinopril 2.5 MG Tablet PO (09:09)
--- NOTE | 2019-09-01 10:20 | PN_ITS ---
Subjective: Breathing much better, however he is nauseated. Currently no emesis. Vitals/I&O's: Vital Signs Temp Pulse Resp BP Pulse Ox 98.3 F 82 16 160/91 H 99 09/01/19 08:57 09/01/19 08:57 09/01/19 08:57 09/01/19 08:57 09/01/19 08:57 Oxygen Flow Rate (L/min) 2 Oxygen Delivery Method Nasal Cannula Weight: 147 lb 0.773 oz Body Mass Index (BMI) 23.1 Finger Stick Blood Glucose 95 Intake and Output for Last 24 Hours 08/30/19 08/31/19 09/01/19 23:59 23:59 23:59 Intake Total 426.70 / 426.70 50 / 50 Balance 426.70 / 426.70 50 / 50 General: Alert, Oriented x3, Cooperative, No apparent distress HEENT: Atraumatic, PERRLA, EOMI, Normocephalic Oral: Moist Mucosa Neck: Supple, No JVD Lungs: Clear to auscultation, Normal air movement, No rhonchi, No wheeze, No rales, Diminished Cardiovascular: Regular rate, Regular Rhythm, Normal S1, Normal S2, No murmurs Abdomen: Soft, Non Tender, Non-Distended, No Hepato-splenomegaly Extremities: No edema, Capillary Refill Less than 3 Seconds Skin: No rashes, No breakdown Neurological: Neuro grossly intact, Sensory exam intact to light touch and pain Psych/Mental Status: Normal Affect, Appropriate Laboratory Results 08/31/19 14:31: POC Glucose 82 09/01/19 04:56: WBC 5.1, RBC 3.75 L, Hgb 11.3 L, Hct 36.2 L, MCV 96.5 H, MCH 30.1, MCHC 31.2 L, RDW Std Deviation 52.2 H, RDW Coeff of Dharmesh 14.9 H, Plt Count 145 L, MPV 10.8, Immature Gran % (Auto) 0.200, Neut % (Auto) 74.8 H, Lymph % (Auto) 17.3 L, [place] % (Auto) 6.7, Eos % (Auto) 0.4, Baso % (Auto) 0.6, Absolute Neuts (auto) 3.8, Absolute Lymphs (auto) 0.88, Nucleated RBC % 0 09/01/19 04:56: Sodium 138, Potassium 4.5, Chloride 98, Carbon Dioxide 27.0, Anion Gap 13, BUN 37 H, Creatinine 8.93 H*, Estim Creat Clear Calc 8.40, Est GFR (MDRD) Af Amer 8 L, Est GFR (MDRD) Non-Af 7 L, BUN/Creatinine Ratio 4.1 L, Glucose 105, Calcium 8.3 L Current Medications Acetaminophen (Tylenol) 650 mg PO Q6H PRN PRN PRN Reason: Pain Score 1-10/Temp > 100.7 F Allopurinol (Zyloprim) 100 mg PO DAILYCM [facility] Last Admin: 09/01/19 09:07 Dose: 100 mg Documented by: Atorvastatin Calcium (Lipitor) 10 mg PO QHS [facility] Last Admin: 08/31/19 21:35 Dose: 10 mg Documented by: Calcium Acetate (Phoslo Gel Cap) 1,334 mg PO TIDCM [facility] Last Admin: 09/01/19 09:07 Dose: 1,334 mg Documented by: Carvedilol (Coreg) 12.5 mg PO BID [facility] Last Admin: 09/01/19 09:09 Dose: 12.5 mg Documented by: Dextrose (D50w Syringe) 0 gm IV X1 PRN; Protocol PRN Reason: Hypoglycemia Diphenhydramine HCl (Benadryl) 25 mg PO TID PRN PRN PRN Reason: ITCHING Last Admin: 08/31/19 22:50 Dose: 25 mg Documented by: Glucagon () 1 mg IM .X1 PRN PRN Reason: Hypoglycemia Heparin Sodium (Porcine) (Heparin Na) 5,000 unit SC Q8 [facility] Last Admin: 09/01/19 05:27 Dose: 5,000 unit Documented by: Hydroxyzine Pamoate (Vistaril Pamoate Capsule) 25 mg PO Q8H [facility] Last Admin: 09/01/19 02:30 Dose: 25 mg Documented by: Sodium Chloride () 250 mls @ 15 mls/hr IV .[id number] PRN PRN Reason: Saline Flush Sodium Chloride () 250 mls @ 15 mls/hr IV .[id number] PRN PRN Reason: Additional IVPB Infusion Lisinopril (Zestril) 2.5 mg PO DAILY [facility] Last Admin: 09/01/19 09:09 Dose: 2.5 mg Documented by: Melatonin (Melatonin) 5 mg PO QHS [facility] Last Admin: 08/31/19 21:34 Dose: 5 mg Documented by: Ondansetron HCl (Zofran) 4 mg IV Q8H PRN PRN PRN Reason: NAUSEA/VOMITING Ondansetron HCl (Zofran Odt) 4 mg PO Q8H PRN PRN PRN Reason: NAUSEA/VOMITING Last Admin: 09/01/19 09:06 Dose: 4 mg Documented by: Pantoprazole Sodium (Protonix) 40 mg PO DAILY PRN PRN PRN Reason: HEARTBURN Sodium Chloride () 10 - 40 ml IV UD PRN PRN Reason: SALINE FLUSH Tamsulosin HCl (Flomax) 0.4 mg PO DAILY [facility] Last Admin: 09/01/19 09:09 Dose: 0.4 mg Documented by: STROKE Vital Signs/Narrative: Vital Signs Temp Pulse Resp BP Pulse Ox 09/01/19 08:57 98.3 F 82 16 160/91 H 99 09/01/19 07:30 100 09/01/19 06:59 99 Medical Necessity - Tobacco Use Smoking Status: Former smoker - Reports quitting smoking 2 weeks ago. Assessment/Plan All Active Problems (Last Reviewed 08/31/19 @ 03:[address] Clinton Max MD) Dyspnea (Acute) Elevated troponin (Acute) Acute on chronic congestive heart failure (Acute) 1. Acute on chronic systolic and diastolic CHF/dyspnea/HTN/HLD/paroxysmal A. fib -His last echo in December 2018 with an EF of 10% and stage III diastolic dysfunction with severe global hypokinesis -His elevated troponin is secondary to his ESRD -Repeat echo -Not sure if the benefit of any Lasix as he does appear to be dialysis dependent with output has not had any urine output since admission -Per his last cardiology visit he does not meet any criteria for anticoagulation for his A. fib at this time -Also we recently increase his Coreg to 12.5 mg twice daily, continue with his other blood pressure medications -Continue with fluid restriction and daily weights -We will obtain an ambulatory pulse ox as well as nocturnal pulse ox to document whether or not he needs continuous or nocturnal oxygen. 2. ESRD/hypocalcemia -Continue with his dialysis on Saturday, Saturday, Saturday -Appreciate nephrology consult, may need to repeat dialysis today per patient 3. GERD -Stable -Continue with PPI 4. BPH -Stable -Continue with Flomax 5. Gout -Stable -Continue with allopurinol DVT: Heparin Inpatient E&M: 10349 Subs Hosp L2
--- NOTE | 2019-09-01 14:26 | PN.RENAL_ITS ---
Subjective: no new complaints - Physical Exam Vitals/I&O's: Vital Signs Temp Pulse Resp BP Pulse Ox 98.3 F 82 16 160/91 H 98 09/01/19 08:57 09/01/19 08:57 09/01/19 11:52 09/01/19 08:57 09/01/19 11:52 Oxygen Flow Rate (L/min) 2 Oxygen Delivery Method Nasal Cannula Weight: 66.7 kg Body Mass Index (BMI) 23.1 Finger Stick Blood Glucose 95 Intake and Output for Last 24 Hours 08/30/19 08/31/19 09/01/19 23:59 23:59 23:59 Intake Total 426.70 / 426.70 290 / 290 Balance 426.70 / 426.70 290 / 290 General: Alert, Oriented x3, Cooperative HEENT: Atraumatic, PERRLA, EOMI, Normocephalic Neck: Supple, No JVD, Negative Carotid Bruits Lungs: Clear to auscultation, Normal air movement Cardiovascular: Regular rate, No murmurs Abdomen: Bowel Sounds Present, Soft, Non Tender Extremities: No edema, Capillary Refill Less than 3 Seconds Skin: No rashes, No breakdown Musculoskeletal: No Tenderness to Palpation of Joints or Extremities Neurological: Cranial nerves II-XII grossly intact Psych/Mental Status: Normal Affect, Appropriate Laboratory Results 08/31/19 14:31: POC Glucose 82 09/01/19 04:56: WBC 5.1, RBC 3.75 L, Hgb 11.3 L, Hct 36.2 L, MCV 96.5 H, MCH 30.1, MCHC 31.2 L, RDW Std Deviation 52.2 H, RDW Coeff of Dharmesh 14.9 H, Plt Count 145 L, MPV 10.8, Immature Gran % (Auto) 0.200, Neut % (Auto) 74.8 H, Lymph % (Auto) 17.3 L, [place] % (Auto) 6.7, Eos % (Auto) 0.4, Baso % (Auto) 0.6, Absolute Neuts (auto) 3.8, Absolute Lymphs (auto) 0.88, Nucleated RBC % 0 09/01/19 04:56: Sodium 138, Potassium 4.5, Chloride 98, Carbon Dioxide 27.0, Anion Gap 13, BUN 37 H, Creatinine 8.93 H*, Estim Creat Clear Calc 8.40, Est GFR (MDRD) Af Amer 8 L, Est GFR (MDRD) Non-Af 7 L, BUN/Creatinine Ratio 4.1 L, Glucose 105, Calcium 8.3 L Current Medications Acetaminophen (Tylenol) 650 mg PO Q6H PRN PRN PRN Reason: Pain Score 1-10/Temp > 100.7 F Allopurinol (Zyloprim) 100 mg PO DAILYCM [facility] Last Admin: 09/01/19 09:07 Dose: 100 mg Documented by: Atorvastatin Calcium (Lipitor) 10 mg PO QHS [facility] Last Admin: 08/31/19 21:35 Dose: 10 mg Documented by: Calcium Acetate (Phoslo Gel Cap) 1,334 mg PO TIDCM [facility] Last Admin: 09/01/19 11:51 Dose: 1,334 mg Documented by: Carvedilol (Coreg) 12.5 mg PO BID [facility] Last Admin: 09/01/19 09:09 Dose: 12.5 mg Documented by: Dextrose (D50w Syringe) 0 gm IV X1 PRN; Protocol PRN Reason: Hypoglycemia Diphenhydramine HCl (Benadryl) 25 mg PO TID PRN PRN PRN Reason: ITCHING Last Admin: 08/31/19 22:50 Dose: 25 mg Documented by: Glucagon () 1 mg IM .X1 PRN PRN Reason: Hypoglycemia Heparin Sodium (Porcine) (Heparin Na) 5,000 unit SC Q8 [facility] Last Admin: 09/01/19 05:27 Dose: 5,000 unit Documented by: Hydroxyzine Pamoate (Vistaril Pamoate Capsule) 25 mg PO Q8H [facility] Last Admin: 09/01/19 10:33 Dose: 25 mg Documented by: Sodium Chloride () 250 mls @ 15 mls/hr IV .[id number] PRN PRN Reason: Saline Flush Sodium Chloride () 250 mls @ 15 mls/hr IV .[id number] PRN PRN Reason: Additional IVPB Infusion Lisinopril (Zestril) 2.5 mg PO DAILY [facility] Last Admin: 09/01/19 09:09 Dose: 2.5 mg Documented by: Melatonin (Melatonin) 5 mg PO QHS [facility] Last Admin: 08/31/19 21:34 Dose: 5 mg Documented by: Ondansetron HCl (Zofran) 4 mg IV Q8H PRN PRN PRN Reason: NAUSEA/VOMITING Ondansetron HCl (Zofran Odt) 4 mg PO Q8H PRN PRN PRN Reason: NAUSEA/VOMITING Last Admin: 09/01/19 09:06 Dose: 4 mg Documented by: Pantoprazole Sodium (Protonix) 40 mg PO DAILY PRN PRN PRN Reason: HEARTBURN Sodium Chloride () 10 - 40 ml IV UD PRN PRN Reason: SALINE FLUSH Tamsulosin HCl (Flomax) 0.4 mg PO DAILY [facility] Last Admin: 09/01/19 09:09 Dose: 0.4 mg Documented by: Medical Necessity - Tobacco Use Smoking Status: Former smoker - Reports quitting smoking 2 weeks ago. Assessment/Plan All Active Problems (Last Reviewed 08/31/19 @ 03:[address] Clinton Max MD) Dyspnea (Acute) Elevated troponin (Acute) Acute on chronic congestive heart failure (Acute) ESRD. HD MWF Anemia. KITTY with HD dyspnea. better
--- NOTE | 2019-09-01 15:35 | PCM.DC ---
You will use the following diet at home:: Cardiac, Renal (restricted protein/sodium) Your food should be the consistency of: Regular Your liquids should be the consistency of: Regular/Thin Discharge Activity: Return to Normal Activity Call your doctor if you observe: Fever of 101 or Higher, Shortness of breath, Dizziness, Fainting spells, Swelling in the ankles, Chest pain, Increased palpitations (irregular heartbeat) Allergies/Adverse Reactions: Allergies Penicillins Allergy (Verified 08/27/19 13:10) Unknown sulfamethoxazole [From Bactrim] Allergy (Verified 08/27/19 13:10) Swelling trimethoprim [From Bactrim] Allergy (Verified 08/27/19 13:10) Swelling Medications to take at Discharge Calcium Acetate [Phoslo Gel Cap] 1,334 mg PO TIDCM 03/08/14 Loperamide [Imodium] 2 - 4 mg PO Q6H PRN PRN 08/21/16 Allopurinol [Zyloprim] 100 mg PO DAILYCM 02/18/18 Tamsulosin HCl [Flomax] 0.4 mg PO DAILY 02/18/18 Simvastatin 20 mg PO QHS 04/14/18 Melatonin 5 mg PO QHS 11/05/18 Nitroglycerin 0.4 mg SL PRN PRN 11/05/18 DiphenhydrAMINE [Benadryl] 25 mg PO TID PRN PRN 11/26/18 Acetaminophen [Tylenol] 650 mg PO Q8H PRN PRN #30 cap 12/03/18 traMADol [Ultram] 50 mg PO Q8H PRN PRN 12/26/18 lisinopril 2.5 mg tablet 2.5 mg PO DAILY #90 tab 03/03/19 Cinacalcet HCl [Sensipar] 30 mg PO DAILY 05/13/19 Hydroxyzine HCl 75 mg PO DAILY PRN 05/13/19 proMETHazine tablet [Phenergan tablet] 25 mg PO Q6H PRN PRN #10 tab 07/30/19 Omeprazole 1 cap PO DAILY PRN 08/03/19 Ibuprofen [Motrin] 800 mg PO TID PRN PRN #20 tab 08/11/19 carvedilol 6.25 mg tablet 12.5 mg PO BID #120 tab 08/27/19 Doxycycline 100 mg PO BID 08/31/19 Ondansetron HCl [Zofran] 4 mg PO TID PRN #15 tab 09/01/19 The following prescriptions were given: Ondansetron HCl [Zofran] 4 mg PO TID PRN #15 tab PRN Reason: Nausea Transmission Status: Pending to [facility]/pharmacy #[id number] Primary Care Physician: Aman Cabral MD [Primary Care Provider] - Please follow up with your Primary Care Physician in: 3-5 days Test Results: Test results from this visit will be discussed in further detail at your follow-up appointment, if applicable.
--- NOTE | 2019-09-01 15:43 | DS.PCM_ITS ---
Discharge Date and Diagnosis Date of Admission: 08/31/19 Date of Discharge: 09/01/19 - Secondary Discharge Diagnosis Chronic Problems: Chronic Problems (Last Reviewed 08/31/19 @ 03:[address] Clinton Max MD) Essential hypertension (Chronic) Paroxysmal atrial fibrillation (Chronic) Dilated cardiomyopathy (Chronic) Presence of biventricular implantable cardioverter-defibrillator (Chronic) Supraventricular dysrhythmia (Chronic) Hyperlipidemia (Chronic) Seizure disorder (Chronic) Anemia of chronic disease (Chronic) Cardiomyopathy (Chronic) CHF (congestive heart failure) (Chronic) ESRD (end stage renal disease) on dialysis (Chronic) Hospital Course and Treatment Imaging Results: CXR: IMPRESSION: Nonspecific ill-defined opacities within the mid and lower lungs may be secondary to underlying atelectasis and/or pneumonia. Cardiomegaly. Echo: Interpretation Summary Moderately dilated left ventricle. Severe segmental systolic dysfunction (see wall motion). The estimated ejection fraction is 10 %. Mild global right ventricular systolic dysfunction. The left atrium is moderately enlarged. Mild diffuse mitral valve thickening. Mild (1+) mitral valve insufficiency. Moderate (2+) eccentric tricuspid valve insufficiency. Mild diffuse aortic valve thickening. Mild focal aortic valve calcification. Trivial pulmonic valve insufficiency. Right ventricular systolic pressure estimated to be 61 mmHg. There is evidence of diastolic dysfunction. ICD or pacer leads identified within the right atrium ICD or pacer leads identified within the right ventricle. 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 Consults: Nephrology Operations: None Procedures: Dialysis Summary of Care Provided: Per HPI: The patient is a 58 year old M with a significant history of congestive heart failure; permanent pacemaker with ICD; and paroxysmal A. fib who presents at the emergency department with a two-week history of persistent shortness of breath. His shortness of breath is mild at rest. It increases markedly with exertion. Associated with his symptoms is productive cough of white and yellow sputum. He reports chronic two-pillow orthopnea; and paroxysmal nocturnal dyspnea. He denies knowingly coming to contact with anybody with COVID. Patient saw his baseball glove stuffer at the office on 08/27/2019. His baseball glove stuffer is Dr. Rasta Kitchen. Hospital Course: 1. Acute on chronic systolic and diastolic CHF/dyspnea/HTN/HLD/paroxysmal A. fib -His last echo in December 2018 with an EF of 10% and stage III diastolic dysfunction with severe global hypokinesis, repeat obtained today is similar -His elevated troponin is secondary to his ESRD -He is an uric and therefore will not have any benefit from Lasix -Per his last cardiology visit he does not meet any criteria for anticoagulation for his A. fib at this time -Also we recently increase his Coreg to 12.5 mg twice daily, continue with his other blood pressure medications -Continue with fluid restriction and daily weights -We will obtain an ambulatory pulse ox as well as nocturnal pulse ox to document whether or not he needs continuous or nocturnal oxygen. -Because he is not getting another round of dialysis today since he was dialyzed well yesterday, he would like to go home. I discussed with him the risk benefits of discharge and he expressed understanding of those risks and benefits. He would like to go home with some Zofran and thinks that his nausea occurred because he was over dialyzed. Also he states that he has been feeling short of breath however he is 98% on room air at rest and 94% on room air with ambulation. I explained to him that the sensation of his shortness of breath is secondary to his extremely low ejection fraction. He seems to understand the concept and unfortunately he does not meet requirements for home O2 at this time. 2. ESRD/hypocalcemia -Continue with his dialysis on Saturday, Saturday, Saturday -Appreciate nephrology consult, may need to repeat dialysis today per patient 3. GERD -Stable -Continue with PPI 4. BPH -Stable -Continue with Flomax 5. Gout -Stable -Continue with allopurinol - Physical Exam Vitals/I&O's: Vital Signs Temp Pulse Resp BP Pulse Ox 98.1 F 67 16 146/78 H 99 09/01/19 14:57 09/01/19 14:57 09/01/19 14:57 09/01/19 14:57 09/01/19 15:01 Oxygen Flow Rate (L/min) 2 Oxygen Delivery Method Room Air Weight: 147 lb 0.773 oz Body Mass Index (BMI) 23.1 Finger Stick Blood Glucose 95 Intake and Output for Last 24 Hours 08/30/19 08/31/19 09/01/19 23:59 23:59 23:59 Intake Total 426.70 / 426.70 290 / 290 Balance 426.70 / 426.70 290 / 290 Laboratory Results 09/01/19 04:56: WBC 5.1, RBC 3.75 L, Hgb 11.3 L, Hct 36.2 L, MCV 96.5 H, MCH 30.1, MCHC 31.2 L, RDW Std Deviation 52.2 H, RDW Coeff of Dharmesh 14.9 H, Plt Count 145 L, MPV 10.8, Immature Gran % (Auto) 0.200, Neut % (Auto) 74.8 H, Lymph % (Auto) 17.3 L, Dawes % (Auto) 6.7, Eos % (Auto) 0.4, Baso % (Auto) 0.6, Absolute Neuts (auto) 3.8, Absolute Lymphs (auto) 0.88, Nucleated RBC % 0 09/01/19 04:56: Sodium 138, Potassium 4.5, Chloride 98, Carbon Dioxide 27.0, Anion Gap 13, BUN 37 H, Creatinine 8.93 H*, Estim Creat Clear Calc 8.40, Est GFR (MDRD) Af Amer 8 L, Est GFR (MDRD) Non-Af 7 L, BUN/Creatinine Ratio 4.1 L, Gl ucose 105, Calcium 8.3 L Current Medications Acetaminophen (Tylenol) 650 mg PO Q6H PRN PRN PRN Reason: Pain Score 1-10/Temp > 100.7 F Allopurinol (Zyloprim) 100 mg PO DAILYCM [facility] Last Admin: 09/01/19 09:07 Dose: 100 mg Documented by: Atorvastatin Calcium (Lipitor) 10 mg PO QHS [facility] Last Admin: 08/31/19 21:35 Dose: 10 mg Documented by: Calcium Acetate (Phoslo Gel Cap) 1,334 mg PO TIDCM [facility] Last Admin: 09/01/19 11:51 Dose: 1,334 mg Documented by: Carvedilol (Coreg) 12.5 mg PO BID [facility] Last Admin: 09/01/19 09:09 Dose: 12.5 mg Documented by: Dextrose (D50w Syringe) 0 gm IV X1 PRN; Protocol PRN Reason: Hypoglycemia Diphenhydramine HCl (Benadryl) 25 mg PO TID PRN PRN PRN Reason: ITCHING Last Admin: 08/31/19 22:50 Dose: 25 mg Documented by: Glucagon () 1 mg IM .X1 PRN PRN Reason: Hypoglycemia Heparin Sodium (Porcine) (Heparin Na) 5,000 unit SC Q8 [facility] Last Admin: 09/01/19 05:27 Dose: 5,000 unit Documented by: Hydroxyzine Pamoate (Vistaril Pamoate Capsule) 25 mg PO Q8H [facility] Last Admin: 09/01/19 10:33 Dose: 25 mg Documented by: Sodium Chloride () 250 mls @ 15 mls/hr IV .[id number] PRN PRN Reason: Saline Flush Sodium Chloride () 250 mls @ 15 mls/hr IV .[id number] PRN PRN Reason: Additional IVPB Infusion Lisinopril (Zestril) 2.5 mg PO DAILY [facility] Last Admin: 09/01/19 09:09 Dose: 2.5 mg Documented by: Melatonin (Melatonin) 5 mg PO QHS [facility] Last Admin: 08/31/19 21:34 Dose: 5 mg Documented by: Ondansetron HCl (Zofran) 4 mg IV Q8H PRN PRN PRN Reason: NAUSEA/VOMITING Ondansetron HCl (Zofran Odt) 4 mg PO Q8H PRN PRN PRN Reason: NAUSEA/VOMITING Last Admin: 09/01/19 09:06 Dose: 4 mg Documented by: Pantoprazole Sodium (Protonix) 40 mg PO DAILY PRN PRN PRN Reason: HEARTBURN Sodium Chloride () 10 - 40 ml IV UD PRN PRN Reason: SALINE FLUSH Tamsulosin HCl (Flomax) 0.4 mg PO DAILY [facility] Last Admin: 09/01/19 09:09 Dose: 0.4 mg Documented by: Discharge Activity: Return to Normal Activity Call your doctor if you observe: Fever of 101 or Higher, Shortness of breath, Dizziness, Fainting spells, Swelling in the ankles, Chest pain, Increased palpitations (irregular heartbeat) Home Medications: Medications to take at Discharge Calcium Acetate [Phoslo Gel Cap] 1,334 mg PO TIDCM 03/08/14 Loperamide [Imodium] 2 - 4 mg PO Q6H PRN PRN 08/21/16 Allopurinol [Zyloprim] 100 mg PO DAILYCM 02/18/18 Tamsulosin HCl [Flomax] 0.4 mg PO DAILY 02/18/18 Simvastatin 20 mg PO QHS 04/14/18 Melatonin 5 mg PO QHS 11/05/18 Nitroglycerin 0.4 mg SL PRN PRN 11/05/18 DiphenhydrAMINE [Benadryl] 25 mg PO TID PRN PRN 11/26/18 Acetaminophen [Tylenol] 650 mg PO Q8H PRN PRN #30 cap 12/03/18 traMADol [Ultram] 50 mg PO Q8H PRN PRN 12/26/18 lisinopril 2.5 mg tablet 2.5 mg PO DAILY #90 tab 03/03/19 Cinacalcet HCl [Sensipar] 30 mg PO DAILY 05/13/19 Hydroxyzine HCl 75 mg PO DAILY PRN 05/13/19 proMETHazine tablet [Phenergan tablet] 25 mg PO Q6H PRN PRN #10 tab 07/30/19 Omeprazole 1 cap PO DAILY PRN 08/03/19 Ibuprofen [Motrin] 800 mg PO TID PRN PRN #20 tab 08/11/19 carvedilol 6.25 mg tablet 12.5 mg PO BID #120 tab 08/27/19 Doxycycline 100 mg PO BID 08/31/19 Ondansetron HCl [Zofran] 4 mg PO TID PRN #15 tab 09/01/19 Following Prescrptions Were Given to Patient: Ondansetron HCl [Zofran] 4 mg PO TID PRN #15 tab PRN Reason: Nausea Transmission Status: Pending to [facility]/pharmacy #[id number] Primary Care Physician: Aman Cabral MD [Primary Care Provider] - Please follow up with your Primary Care Physician in: 3-5 days Disposition: Home Minutes spent on discharge:: 35 Patient Condition:: Stable Medical Necessity - Tobacco Use Smoking Status: Former smoker - Reports quitting smoking 2 weeks ago. Meaningful Use Info Meaningful Use Diagnoses (Choose all that apply): CHF - CHF DWAYNE/ARB ordered at discharge?: Yes Documented LVEF (%): 10 Inpatient E&M: [id number] Disch Hosp
--- NOTE | 2019-09-02 15:11 | CASEMGMT ---
ENRIQUE REIS Discharge F/U Phone Call LACE: 13 Strata: 3 Discharge date: 09/01/2019 Call date: 09/02/2019 Call time: [id number] Admission dx: Acute on chronic systolis/diastolic HF Pt still c/o nausea at this time but states just took 'a nausea pill.' Pt states no questions regarding discharge instructions/medications at this time. Pt states has f/u set for tomorrow and will get transportation set up. Pt states no suggestions for [facility] at this time. Pt voices no further questions/concerns/needs at this time. [place] ENRIQUE REIS
== END 2019-09-01 16:52 | disposition home or self-care (01) | DRG 291 ==
LOC: ED 23:33 → PCU 08-31 02:08
PROVIDERS: Admitting Provider Hospitalist; Emergency Provider Emergency Medicine; PCP Internal Medicine; Referring Provider Hospitalist; Visit Provider Family Medicine
DX: I13.2 Hypertensive heart and chronic kidney disease with heart failure and with stage 5 chronic kidney disease, or end stage renal disease (principal); N18.6 End stage renal disease; I50.43 Acute on chronic combined systolic (congestive) and diastolic (congestive) heart failure; I47.1 Supraventricular tachycardia; E78.5 Hyperlipidemia, unspecified; I48.0 Paroxysmal atrial fibrillation; E83.51 Hypocalcemia; K21.9 Gastro-esophageal reflux disease without esophagitis; I42.0 Dilated cardiomyopathy; N40.1 Benign prostatic hyperplasia with lower urinary tract symptoms; R33.8 Other retention of urine; M10.9 Gout, unspecified; G40.909 Epilepsy, unspecified, not intractable, without status epilepticus; D63.1 Anemia in chronic kidney disease; Z99.2 Dependence on renal dialysis; Z95.810 Presence of automatic (implantable) cardiac defibrillator; Z79.899 Other long term (current) drug therapy; Z87.891 Personal history of nicotine dependence
CPT/HCPCS: 36415; 71045; 80048; 82962; 83605; 84484; 85025; 87040; 87635; 90937; 93005; 93306; 97110; 97162; 97166; 97530; 97802; 99251; 99285; G2023; J7030; J7050; Q9957; A4216; G0257; G0463; Q5106; U0003

== ENCOUNTER 2019-09-04 06:26 | Emergency (ER) | payer MEDICARE, MEDICAID, SELFPAY ==
[2019-08-31 02:17] VITALS: BMI 23.1
[2019-09-04 06:28] VITALS: BP 82/70; PULSE 84; RESP 15; TEMP 37.2; O2SAT 99; BMI 21.9
[2019-09-04 06:38] VITALS: O2SAT 98
--- NOTE | 2019-09-04 07:19 | CT_ITS ---
STUDY: CT ABDOMEN AND PELVIS WITHOUT CONTRAST REASON FOR EXAM: Male, 59 years old. PAIN, N/V/D @ DIALYSIS RADIATION DOSAGE (If Supplied By Facility): CTDIvol = ( 7.57 ) mGy, DLP = ( 353.53 ) mGycm TECHNIQUE: Transaxial images were obtained from the dome of the diaphragm to the symphysis pubis without oral contrast, and without intravenous contrast. Sagittal and coronal images were reconstructed. Individualized dose optimization techniques were used for this CT. COMPARISON: July 30, 2019. July 01, 2017. FINDINGS: Lung bases: Atelectasis/scarring at the lung bases right lung base. Stable subpleural irregular nodule measuring 9 mm (axial image 15 series 2). Stable lung base nodule incorporated into the scar measuring approximately 1 cm (axial image 22 series 2). Heart: Cardiomegaly. Cardiac device. Liver: Hepatic parenchyma slightly hyperdense measuring up to 90 Hounsfield units. No focal lesions. Gallbladder/biliary ducts: Unremarkable. Pancreas: Unremarkable. Spleen: Unremarkable. Adrenal glands: Unremarkable. Kidneys/ureters/bladder: End stage renal disease with right greater than left renal parenchymal atrophy. Multiple low-density left-sided renal lesions measuring simple cyst (axial image 45 series 2). Left noncystic renal lesion measuring 4.3 cm x 4.1 cm (axial image 61 series 2). Nondilated ureters. Underdistended urinary bladder. Prostate: Unremarkable. Large bowel/small bowel: Colonic diverticulosis without evidence of acute diverticulitis. No perforation. No pneumatosis. No obstruction. Appendix: Unremarkable impression axial image 106 degrees 2). Gastroesophageal junction/stomach: Food distended stomach. Retroperitoneum/lymph nodes: No intra-abdominal free air. No ascites. No pathologically enlarged lymph nodes. Postsurgical clips at the left upper quadrant. Vascular: Vascular calcifications without aneurysm. Osseous structures: Unchanged degenerative findings. No acute process. Subcutaneous/soft tissues: Postsurgical changes of the inguinal canals bilaterally. Increased soft tissue density along the left inguinal canal (axial image 133 series 2). Minimal soft tissue stranding at the left ventricle abdominal wall (axial image [address]/Abdomen/Pelvis without Cont IMPRESSION: No acute intra-abdominal/pelvic findings Stable left renal mass Stable bilateral inguinal postsurgical changes with left-sided increased soft tissue density Stable bilateral lung base nodules (statistically benign; stable greater than 2 years) Stable end-stage renal disease Slightly hyperdense hepatic parenchyma (correlate amiodarone usage versus blood transfusions) Electronically Signed: Edmar Webber DO at 8:24 EDT Tel , Service support ,
--- NOTE | 2019-09-04 07:21 | ED.VIS.GI ---
History of Present Illness Chief Complaint: Shortness of Breath Informant: Patient - Diarrhea/Melena/Hematochezia GI Symptom: Diarrhea Onset: Yesterday Stool Quality: Loose. Negative for: Lisbeth Smith Narrative: Patient is a 59-year-old male with significant medical history including severe CHF with EF of 10% as well as end-stage renal disease on hemodialysis presenting with diarrhea. Patient states he developed diarrhea last night. He had a total of 3 episodes. He went to dialysis today but they sent him to the emergency room for further evaluation. Patient initially told triage she was having nausea and vomiting however he denied that for me. He denies SOC abdominal pain. He cannot characterize his diarrhea. Patient is quite somnolent states his been very sleepy today he is not sure why. His last full session of hemodialysis was Saturday, 2 days ago. Patient currently denies any chest pain. He states he has some shortness of breath but this is chronic shortness of breath associated with his comorbidities. Past Medical History - Allergies and Home Meds Allergies/Adverse Reactions: Allergies Penicillins Allergy (Verified 09/04/19 06:28) Unknown sulfamethoxazole [From Bactrim] Allergy (Verified 09/04/19 06:28) Swelling trimethoprim [From Bactrim] Allergy (Verified 09/04/19 06:28) Swelling Primary Care Physician: Aman Cabral MD [Primary Care Provider] - Past Medical History: - - Hypertention, proximal A. fib, dilated cardiomyopathy, congestive heart failure, hyperlipidemia, seizure disorder, CVA end-stage renal disease Surgical History: pacemaker implantation, - - prosthetic right eye, Rt upper arm AVF, right adrenal gland removal for unknown reason Smoking Status: Former smoker - Family History Maternal Family History: Reports: Diabetes Paternal Family History: Reports: Heart Disease Review of Systems General: Reports: Malaise. Denies: Chills, Fever, Sweats Eyes: Denies: Visual changes - bilaterally, Diplopia ENT: Denies: Rhinorrhea, Sore throat Cardiovascular: Denies: Chest pain, Palpitations Respiratory: Reports: Dyspnea - Chronic, unchanged. Denies: Cough, Dyspnea on exertion Gastrointestinal: Reports: Nausea, Vomiting, Diarrhea. Denies: Abdominal pain Genitourinary: Denies: Dysuria, Hematuria, Frequency Musculoskeletal: Denies: Back pain, Extremity Pain Skin: Denies: Rash, Wounds Neurological: Denies: Headache, Weakness, Numbness Physical Exam Vital Signs/Narrative: Vital Signs Temp Pulse Resp BP Pulse Ox 09/04/19 06:28 98.9 F 84 15 82/70 L 99 Inital Vital Signs reviewed: Yes General: Well nourished, Well developed, No Acute Distress Head: Normocephalic, Atraumatic Eyes: Perrl, EOMI ENT: Moist mucous membranes, No rhinorrhea Neck: Supple, Nontender, No JVD Cardiovascular: Regular rate, Regular rhythm, No murmurs, - - AV Fistula in the right upper extremity Respiratory: No distress, CTA bilaterally, Chest nontender Abdomen: Soft, Nontender, Nondistended, Normal bowel sounds Back: Nontender, Normal Inspection Extremities: Nontender, No edema Skin: Normal color, No rash Neurological: Alert, Oriented x3, Cranial nerves II-XII grossly intact, Normal Strength, Normal Sensation Psychological: Normal affect, Normal Mood Diagnostic/Tx/Re-eval Chest X-Ray - ED: 1 View, Read by ED Physician, Read by Radiologist, No Acute Disease Clinical Impression(s) from Imaging Studies Abdomen/Pelvis CT 09/04/19 07:19 IMPRESSION: No acute intra-abdominal/pelvic findings Stable left renal mass Stable bilateral inguinal postsurgical changes with left-sided increased soft tissue density Stable bilateral lung base nodules (statistically benign; stable greater than 2 years) Stable end-stage renal disease Slightly hyperdense hepatic parenchyma (correlate amiodarone usage versus blood transfusions) Electronically Signed: Edmar Webber DO at 8:24 EDT Tel , Service support , Chest X-Ray 09/04/19 09:05 IMPRESSION: No acute cardiopulmonary findings Electronically Signed: Edmar Webber DO at 9:51 EDT Tel , Service support , Laboratory Data 09/04/19 09/04/19 09/04/19 08:22 08:22 08:22 WBC 4.8 RBC 4.93 Hgb 14.7 Hct 45.5 MCV 92.3 MCH 29.8 MCHC 32.3 RDW Std Deviation 48.3 H RDW Coeff of Dharmesh 14.2 Plt Count 204 MPV 10.7 Immature Gran % (Auto) 0.400 Neut % (Auto) 52.7 Lymph % (Auto) 31.0 Clare % (Auto) 13.0 H Eos % (Auto) 2.3 Baso % (Auto) 0.6 Absolute Neuts (auto) 2.5 Absolute Lymphs (auto) 1.48 Nucleated RBC % 0.8 Sodium 135 L Potassium 3.4 L Chloride 94 L Carbon Dioxide 27.0 Anion Gap 14 BUN 57 H Creatinine 12.20 H* Estim Creat Clear Calc 6.16 Est GFR (MDRD) Af Amer 6 L Est GFR (MDRD) Non-Af 5 L BUN/Creatinine Ratio 4.7 L Glucose 153 H Lactic Acid 2.1 H* Calcium 7.8 L Total Bilirubin 0.50 AST 8 L ALT 18 Alkaline Phosphatase 108 Troponin I 0.065 H Total Protein 8.8 H Albumin 3.1 L Globulin 5.7 H Albumin/Globulin Ratio 0.5 L Lipase 213 - Medical Decision Making Patient is evaluated for diarrhea since yesterday. He was sent in from dialysis. On arrival patient is hypotensive. States he feels tired. His exam is otherwise nonfocal. Is not have any associated abdominal pain. Patient given a small 250 mL bolus because of his persistent hypotension. Patient does have improvement of his blood pressure and states he feels better. His initial lactate is 2.1. There is no obvious source of infection. Also this could just be volume depletion secondary to his recent diarrhea. He has elevated creatinine consistent with end-stage renal disease but his potassium is normal. He does not require emergent dialysis.Does have a mildly elevated troponin but this actually appears to be below his baseline. He likely is a chronically elevated troponin because of his end-stage renal disease. I discussed with patient plan of care and my suggestion is to speak to his primary care doctor and possibly be admitted to the hospital because of his lactic acidosis and hypotension. Patient states he just wants to leave. He does assure me that he will go to dialysis today. Patient will leave AGAINST MEDICAL ADVICE. Patient has capacity to make this decision. Paperwork is signed. He is counseled that we could be missing a more serious infection or medical process that could lead to endorgan damage and . Patient verbalizes agreement understanding with this. We did contact his dialysis center who states they can take him as soon as he arrives. Patient is informed of this. Patient does leave before he can receive his exit paperwork because his ride to dialysis is here. He is able to ambulate out of the emergency room. ED Disposition - Plan for ED Patient: Disposition: Against Medical Advice Diagnosis: Hypotension, Diarrhea, Elevated lactic acid level Referrals: Aman Cabral MD [Primary Care Provider] -
--- NOTE | 2019-09-04 07:31 | ED.RN ---
UNABLE TO OBTAIN BLOOD, LAB CALLED.
[2019-09-04 08:32] LABS: Absolute Lymphocyte Count 1.48 X10^3/uL (0.83-4.51); Absolute Neutrophil Count 2.5 X10^3/uL (2.0-7.7); Basophil# 0.03 X10^3/uL; Basophil% 0.6 % (0-1); Eosinophil# 0.11 X10^3/uL; Eosinophils% 2.3 % (0-5); Hematocrit 45.5 % (40-54); Hemoglobin 14.7 g/dL (13.0-16.5); Lymphocyte # 1.48 X10^3/ul (4.0); Mean Corp Hgb Conc 32.3 g/dL (32-36); Mean Corpuscular Hgb 29.8 pg (27.0-32.0); Mean Corpuscular Volume 92.3 fL (80-94); Mean Platelet Vol. 10.7 fl (6.2-12.0); Monocyte# 0.62 X10^3/uL; NRBC Flagged by Analyzer 0.8 % (0-5); Neutrophil # 2.52 X10^3/uL (2.7-7.7); Neutrophil % 52.7 % (47-70); Platelet Count 204 K/mm3 (150-450); RBC Distribution Width CV 14.2 % (11.6-14.6); RBC Distribution Width SD 48.3 fl (35.1-43.9); Red Blood Count 4.93 M/mm3 (4.6-6.2); White Blood Count 4.8 K/mm3 (4.4-11.0)
[2019-09-04 08:40] VITALS: BP 77/56; PULSE 107; RESP 16; O2SAT 97
[2019-09-04 08:56] LABS: ALB/GLOB Ratio 0.5 RATIO (0.9-2.4); AST(SGOT) 8 U/L (15-37); Alanine Aminotransfer ALT/SGPT 18 U/L (16-61); Albumin, Serum 3.1 g/dL (3.2-5.0); Alkaline Phosphatase 108 U/L (45-117); Anion Gap 14 (5-15); BUN 57 mg/dL (7-18); BUN/Creat Ratio 4.7 RATIO (10-20); Calcium,Total 7.8 mg/dL (8.5-10.1); Chloride 94 mmol/L (98-107); EST Glomerular Filtration Rate 5 mL/min (>60); Est Glom Filt Rate - Afr Amer 6 mL/min (>60); Estimated Creatinine Clearance 6.16 ml/min; Globulin 5.7 g/dL (2.2-4.2); Glucose 153 mg/dL (74-106); Lactic Acid 2.1 mmol/L (0.4-1.9); Lipase 213 U/L (73-393); Potassium 3.4 mmol/L (3.5-5.1); Protein, Total 8.8 g/dL (6.4-8.2); Sodium Level 135 mmol/L (136-145)
--- NOTE | 2019-09-04 09:05 | RAD_ITS ---
STUDY: X-RAY CHEST REASON FOR EXAM: Male, 59 years old. HYPOTENSION, SOB TECHNIQUE: Single AP portable view of the chest. COMPARISON: August 30, 2019. FINDINGS: Left-sided cardiac device in position. Cardiac silhouette unremarkable. Pulmonary vascularity unremarkable. Aorta unremarkable. No focal patchy airspace opacities. No pleural effusions. Mild hyperaeration. Upper abdomen unremarkable. Osseous structures intact with degenerative features No pneumothorax. RAD/Chest 1 View IMPRESSION: No acute cardiopulmonary findings Electronically Signed: Edmar Webber DO at 9:51 EDT Tel , Service support ,
[2019-09-04 09:13] VITALS: BP 96/56
[2019-09-04 11:09] VITALS: BP 74/41; PULSE 60; RESP 16; O2SAT 96
--- NOTE | 2019-09-04 11:27 | ED.RN ---
[facility] CONTACTED TO TRANSPORT PT TO DIALYSIS. WILL BE HERE IN APPROX 5 MINUTES
--- NOTE | 2019-09-04 11:30 | ED.RN ---
Pt states he feels better and wants to leave.
[2019-09-04 12:29] LABS: Reflex Lactate? Y
== END 2019-09-04 11:31 | disposition left against medical advice (07) ==
PROVIDERS: Emergency Provider Emergency Medicine; PCP Internal Medicine
DX: I95.9 Hypotension, unspecified (principal); R19.7 Diarrhea, unspecified; R74.0 Nonspecific elevation of levels of transaminase and lactic acid dehydrogenase [LDH]; Z53.29 Procedure and treatment not carried out because of patient's decision for other reasons; I13.2 Hypertensive heart and chronic kidney disease with heart failure and with stage 5 chronic kidney disease, or end stage renal disease; N18.6 End stage renal disease; I50.9 Heart failure, unspecified; I48.0 Paroxysmal atrial fibrillation; I42.0 Dilated cardiomyopathy; E78.5 Hyperlipidemia, unspecified; G40.909 Epilepsy, unspecified, not intractable, without status epilepticus; Z99.2 Dependence on renal dialysis; Z95.0 Presence of cardiac pacemaker; Z88.0 Allergy status to penicillin; Z88.1 Allergy status to other antibiotic agents; Z88.2 Allergy status to sulfonamides; Z79.899 Other long term (current) drug therapy; Z87.891 Personal history of nicotine dependence; Z86.73 Personal history of transient ischemic attack (TIA), and cerebral infarction without residual deficits
CPT/HCPCS: 36415; 71045; 74176; 80053; 83605; 83690; 84484; 85025; 99285; J7050; A4216

== ENCOUNTER 2019-09-26 14:59 | Observation (INO) | payer MEDICARE, MEDICAID, SELFPAY ==
[2019-09-26 14:59] VITALS: BP 130/95; PULSE 83; RESP 14; TEMP 36.4; O2SAT 97; BMI 22.6
--- NOTE | 2019-09-26 15:37 | EKG12_ITS ---
Test Reason : WEAKNESS Blood Pressure : / mmHG Vent. Rate : 077 BPM Atrial Rate : 077 BPM P-R Int : 162 ms QRS Dur : 140 ms QT Int : 488 ms P-R-T Axes : 059 014 149 degrees QTc Int : 552 ms Suspect unspecified pacemaker failure Atrial-sensed ventricular-paced rhythm Abnormal ECG Confirmed by MODESTA DINH, MEHDI ([id number]), medical transcription editor BHAVANI JEREZ ([id number]) on 09/29/2019 9:28:08 AM Referred By: [place] Confirmed By:MEHDI BYERS MD
--- NOTE | 2019-09-26 15:40 | ED.VIS.GEN ---
History of Present Illness Chief Complaint: Weakness Informant: Patient Onset: Today Context: Gradual Onset Narrative: Patient is a 59-year-old male with history of end-stage renal disease on hemodialysis who is presenting with generalized weakness. He had an extra session of dialysis today because his weight was up. He states he was up 7 and they took 4 off yesterday and then 3 off today. After his dialysis session he went home and slept. When he woke up he felt hot with cold sweats, generalized weakness and myalgias. Associated nausea. He states he has a chronic cough which is unchanged and nonproductive. Patient states this is happened before with him taken too much fluid off. He feels it cannot get his dry weight rate. He denies any associated chest pain or difficulty breathing. He denies any other complaints at this time. His digital campaign specialist is Dr. Velazquez. Past Medical History - Allergies and Home Meds Allergies/Adverse Reactions: Allergies Penicillins Allergy (Verified 09/04/19 06:28) Unknown sulfamethoxazole [From Bactrim] Allergy (Verified 09/04/19 06:28) Swelling trimethoprim [From Bactrim] Allergy (Verified 09/04/19 06:28) Swelling Past Medical History: - - Hypertension, proximal A. fib, dilated cardiomyopathy, congestive heart failure, seizure disorder, hyperlipidemia, anemia of chronic disease, end-stage renal disease Surgical History: pacemaker implantation, - - prosthetic right eye, Rt upper arm AVF, right adrenal gland removal for unknown reason Smoking Status: Former smoker - Family History Maternal Family History: Reports: Diabetes Paternal Family History: Reports: Heart Disease Review of Systems General: Reports: Chills, Malaise, Sweats. Denies: Fever Eyes: Denies: Visual changes - bilaterally, Diplopia ENT: Denies: Rhinorrhea, Sore throat Cardiovascular: Denies: Chest pain, Palpitations Respiratory: Denies: Dyspnea, Cough, Dyspnea on exertion Gastrointestinal: Reports: Nausea. Denies: Abdominal pain, Vomiting, Diarrhea, Melena, Hematochezia Genitourinary: Denies: Dysuria, Hematuria, Frequency Musculoskeletal: Reports: Myalgias. Denies: Back pain, Extremity Pain Skin: Denies: Rash, Wounds Neurological: Denies: Headache, Weakness, Numbness Physical Exam Vital Signs/Narrative: Vital Signs Temp Pulse Resp BP Pulse Ox 09/26/19 14:59 97.6 F L 83 14 130/95 H 97 Inital Vital Signs reviewed: Yes General: Well nourished, Well developed, No Acute Distress Head: Normocephalic, Atraumatic Eyes: Perrl, EOMI ENT: Moist mucous membranes, No rhinorrhea Neck: Supple, Nontender Cardiovascular: Regular rate, Regular rhythm, No murmurs, - - AV fistula in the right upper extremity palpated Respiratory: No distress, CTA bilaterally, Chest nontender. Negative for: Wheezing Abdomen: Soft, Nontender, Nondistended, Normal bowel sounds Back: Nontender, Normal Inspection Extremities: Nontender, No edema Skin: Normal color, No rash Neurological: Alert, Oriented x3, Cranial nerves II-XII grossly intact, Normal Strength, Normal Sensation Psychological: Normal affect, Normal Mood Diagnostic/Tx/Re-eval Chest X-Ray - ED: 1 View, Read by ED Physician, Read by Radiologist, No Acute Disease Clinical Impression(s) from Imaging Studies Chest X-Ray 09/26/19 16:28 IMPRESSION: No active pulmonary disease. Electronically Signed: Macario Page MD at 16:55 EDT Tel , Service support , Laboratory Data 09/26/19 09/26/19 09/26/19 17:05 17:05 17:05 WBC 3.9 L RBC 5.38 Hgb 16.0 Hct 49.6 MCV 92.2 MCH 29.7 MCHC 32.3 RDW Std Deviation 51.9 H RDW Coeff of Dharmesh 15.4 H Plt Count 192 MPV 10.4 Immature Gran % (Auto) 0.300 Neut % (Auto) 51.5 Lymph % (Auto) 33.0 [place] % (Auto) 10.9 H Eos % (Auto) 3.3 Baso % (Auto) 1.0 Absolute Neuts (auto) 2.0 Absolute Lymphs (auto) 1.30 Nucleated RBC % 0 Sodium 131 L Cancelled Potassium 6.6 H* Cancelled Chloride 93 L Cancelled Carbon Dioxide 33.0 H Cancelled Anion Gap 5 Cancelled BUN 27 H Cancelled Creatinine 7.31 H Cancelled Estim Creat Clear Calc 10.56 Est GFR (MDRD) Af Amer 10 L Cancelled Est GFR (MDRD) Non-Af 8 L Cancelled BUN/Creatinine Ratio 3.7 L Cancelled Glucose 96 Cancelled Calcium 9.0 Cancelled Phosphorus Magnesium 2.5 Total Bilirubin 0.80 AST 12 L ALT 20 Alkaline Phosphatase 105 Troponin I < 0.015 Total Protein 10.0 H Albumin 3.7 Globulin 6.3 H Albumin/Globulin Ratio 0.6 L Lipase 246 09/26/19 17:05 WBC RBC Hgb Hct MCV MCH MCHC RDW Std Deviation RDW Coeff of Dharmesh Plt Count MPV Immature Gran % (Auto) Neut % (Auto) Lymph % (Auto) [place] % (Auto) Eos % (Auto) Baso % (Auto) Absolute Neuts (auto) Absolute Lymphs (auto) Nucleated RBC % Sodium Potassium Chloride Carbon Dioxide Anion Gap BUN Creatinine Estim Creat Clear Calc Est GFR (MDRD) Af Amer Est GFR (MDRD) Non-Af BUN/Creatinine Ratio Glucose Calcium Phosphorus 6.0 H Magnesium Total Bilirubin AST ALT Alkaline Phosphatase Troponin I Total Protein Albumin Globulin Albumin/Globulin Ratio Lipase - Rhythm Strip Rhythm Strip: Sinus Rhythm Rate: 77 - paced - EKG Initial EKG Interpretation: Sinus Rhythm, - - Sinus rhythm at a rate of 77 AV sensed ventricular paced Normal axis Nonspecific T wave changes Prolonged QTC - Medical Decision Making Patient evaluated for generalized weakness after dialysis today. He feels that his dry weight is too low right now. He is hemodynamically stable in the emergency room. His blood pressure is actually normal. Patient states his blood pressure normally runs high so he could have some relative hypotension right now. Work-up is remarkable for a mild leukopenia of 3.9. Chart knee shows that patient does have a history of intermittent leukopenia. His sodium was 131 and his potassium was 6.6. This is not a hemolyzed sample. He has an elevated creatinine of 7.3 but this is consistent with his baseline and end-stage renal disease. Troponin is negative. Chest x-rays not show any acute process. Patient is given a small 250 cc fluid bolus. Not have any EKG changes concerning for severe hyperkalemia. I did discuss the case with digital campaign specialist who would like to admit the patient to medicine for emergent dialysis tonight. Patient is agreeable with this plan. Patient is otherwise stable and stable for the PCU at time of disposition. ED Disposition - Plan for ED Patient: Disposition: Acute Care Hospital [facility] Diagnosis: Hyperkalemia, Generalized weakness
--- NOTE | 2019-09-26 16:28 | RAD_ITS ---
STUDY: X-RAY CHEST REASON FOR EXAM: Male, 59 years old. Weakness following dialysis. TECHNIQUE: Single AP portable view of the chest. COMPARISON: 09/04/2019. FINDINGS: The left-sided dual-chamber pacemaker is in stable position. The lungs are clear and expanded. There is no demonstrated pleural abnormality. There is borderline cardiomegaly. Normal mediastinum and anselmo. Normal visualized pulmonary arteries. Normal visualized aortic arch and descending thoracic aorta. There is no demonstrated acute osseous changes. There is no demonstrated abnormality of the visualized soft tissue structures of the upper abdomen. RAD/Chest 1 View (Portable) IMPRESSION: No active pulmonary disease. Electronically Signed: Macario Page MD at 16:55 EDT Tel , Service support ,
[2019-09-26] MEDS: Ondansetron ODT 4 MG Tablet PO (16:31)
[2019-09-26 17:11] VITALS: BP 121/99; PULSE 96; RESP 24; O2SAT 92
[2019-09-26 17:15] LABS: Basophil# 0.04 X10^3/uL; Eosinophil# 0.13 X10^3/uL; Eosinophils% 3.3 % (0-5); Hematocrit 49.6 % (40-54); Mean Corp Hgb Conc 32.3 g/dL (32-36); Mean Corpuscular Hgb 29.7 pg (27.0-32.0); Mean Corpuscular Volume 92.2 fL (80-94); Mean Platelet Vol. 10.4 fl (6.2-12.0); Monocyte# 0.43 X10^3/uL; Monocyte% 10.9 % (0-10); NRBC Flagged by Analyzer 0 % (0-5); Neutrophil # 2.03 X10^3/uL (2.7-7.7); Neutrophil % 51.5 % (47-70); Platelet Count 192 K/mm3 (150-450); RBC Distribution Width CV 15.4 % (11.6-14.6); RBC Distribution Width SD 51.9 fl (35.1-43.9); Red Blood Count 5.38 M/mm3 (4.6-6.2); White Blood Count 3.9 K/mm3 (4.4-11.0)
[2019-09-26 17:44] LABS: ALB/GLOB Ratio 0.6 RATIO (0.9-2.4); AST(SGOT) 12 U/L (15-37); Alanine Aminotransfer ALT/SGPT 20 U/L (16-61); Albumin, Serum 3.7 g/dL (3.2-5.0); Alkaline Phosphatase 105 U/L (45-117); Anion Gap 5 (5-15); BUN 27 mg/dL (7-18); BUN/Creat Ratio 3.7 RATIO (10-20); Chloride 93 mmol/L (98-107); Creatinine, Serum 7.31 mg/dL (0.70-1.30); EST Glomerular Filtration Rate 8 mL/min (>60); Est Glom Filt Rate - Afr Amer 10 mL/min (>60); Estimated Creatinine Clearance 10.56 ml/min; Globulin 6.3 g/dL (2.2-4.2); Glucose 96 mg/dL (74-106); Lipase 246 U/L (73-393); Potassium 6.6 mmol/L (3.5-5.1); Sodium Level 131 mmol/L (136-145)
[2019-09-26 17:58] VITALS: BP 118/80; PULSE 76; RESP 18; O2SAT 98
--- NOTE | 2019-09-26 18:53 | PCM.CONS.R ---
Consultation - Renal PCP/ Referring MD: Requesting physician: [] Primary care physician: Dr. Aman Cabral MD - History of Present Illness History of Present Illness: The patient is a 59 year old M ESRD on HD at [facility]. Pt presented with weakness following HD session today.Pt said he had 2 session in a row yesterday and today Pt received 250 cc NS bolus. Lab showed K 6.6 Pt will be admitted for HD today HD access RUE AVG ROS 12 systems review is negative except weakness[] - Allergies Allergies: Allergies Penicillins Allergy (Verified 09/04/19 06:28) Unknown sulfamethoxazole [From Bactrim] Allergy (Verified 09/04/19 06:28) Swelling trimethoprim [From Bactrim] Allergy (Verified 09/04/19 06:28) Swelling - Past Medical History Past Medical History (Chronic Problems): Chronic Problems (Last Updated 09/24/19 @ 08:49 by Marci Cornelius) Chronic systolic (congestive) heart failure (Chronic) Essential hypertension (Chronic) Paroxysmal atrial fibrillation (Chronic) Dilated cardiomyopathy (Chronic) Presence of biventricular implantable cardioverter-defibrillator (Chronic) Supraventricular dysrhythmia (Chronic) Hyperlipidemia (Chronic) Seizure disorder (Chronic) Anemia of chronic disease (Chronic) ESRD (end stage renal disease) on dialysis (Chronic) - Past Surgical History Surgical History: pacemaker implantation, - - prosthetic right eye, Rt upper arm AVF, right adrenal gland removal for unknown reason - Social History Smoking Status: Former smoker - Family History Maternal History Items: Diabetes Paternal History Items: Heart Disease - Physical Exam Vitals/I&O's: Vital Signs Temp Pulse Resp BP Pulse Ox 97.6 F L 76 18 118/80 98 09/26/19 14:59 09/26/19 17:58 09/26/19 17:58 09/26/19 17:58 09/26/19 17:58 Oxygen Delivery Method Room Air Weight: 69.5 kg Body Mass Index (BMI) 22.6 Finger Stick Blood Glucose 95 General: Alert, Oriented x3 HEENT: Atraumatic Oral: Moist Mucosa Neck: Supple Lungs: Clear to auscultation, Normal air movement Cardiovascular: Regular rate, Regular Rhythm, Normal S1 Abdomen: Bowel Sounds Present, Soft, Non Tender Extremities: No clubbing, No cyanosis, No edema Skin: No rashes Lymphatic: No Cervical, Supraclavicular, or Inguinal Adenopathy Neurological: Neuro grossly intact Psych/Mental Status: Appropriate Laboratory Results 09/26/19 17:05: WBC 3.9 L, RBC 5.38, Hgb 16.0, Hct 49.6, MCV 92.2, MCH 29.7, MCHC 32.3, RDW Std Deviation 51.9 H, RDW Coeff of Dharmesh 15.4 H, Plt Count 192, MPV 10.4, Immature Gran % (Auto) 0.300, Neut % (Auto) 51.5, Lymph % (Auto) 33.0, [place] % (Auto) 10.9 H, Eos % (Auto) 3.3, Baso % (Auto) 1.0, Absolute Neuts (auto) 2.0, Absolute Lymphs (auto) 1.30, Nucleated RBC % 0 09/26/19 17:05: Sodium 131 L, Potassium 6.6 H*, Chloride 93 L, Carbon Dioxide 33.0 H, Anion Gap 5, BUN 27 H, Creatinine 7.31 H, Estim Creat Clear Calc 10.56, Est GFR (MDRD) Af Amer 10 L, Est GFR (MDRD) Non-Af 8 L, BUN/Creatinine Ratio 3.7 L, Glucose 96, Calcium 9.0, Total Bilirubin 0.80, AST 12 L, ALT 20, Alkaline Phosphatase 105, Troponin I < 0.015, Total Protein 10.0 H, Albumin 3.7, Globulin 6.3 H, Albumin/Globulin Ratio 0.6 L, Lipase 246 Assessment/Plan All Active Problems (Last Updated 09/24/19 @ 08:49 by Marci Cornelius) Dyspnea (Acute) Elevated troponin (Acute) Acute on chronic congestive heart failure (Acute) 1-ESRD MWF HD session HD session tonight for 2 hrs for hypekalemia No UF today 2- Hyperkalemia HD today with 1 K for the 1st hr then 2K
[2019-09-26 19:01] VITALS: BP 124/76; PULSE 86; RESP 19; O2SAT 96
--- NOTE | 2019-09-26 19:08 | HP.PCM_ITS ---
Problem List (1) Hyperkalemia Status: Acute (2) Chronic systolic (congestive) heart failure Status: Chronic (3) Essential hypertension Status: Chronic (4) Paroxysmal atrial fibrillation Status: Chronic (5) Dilated cardiomyopathy Status: Chronic (6) Presence of biventricular implantable cardioverter-defibrillator Status: Chronic (7) Supraventricular dysrhythmia Status: Chronic (8) Hyperlipidemia Status: Chronic Qualifiers: Hyperlipidemia type: unspecified Qualified Code(s): E78.5 - Hyperlipidemia, unspecified (9) Seizure disorder Status: Chronic (10) Anemia of chronic disease Status: Chronic (11) ESRD (end stage renal disease) on dialysis Status: Chronic History of Present Illness Date of Admission: 09/26/19 Chief Complaint: Malaise, fatigue, hyperkalemia The patient is a 59 y/o M w/ PMHx: ESRD on HD MWF, PAF, HTN, HLD, Systolic CHF/Dilated Cardiomyopathy s/p pacemaker status, Seizure disorder, AOCD who presents to the [facility] ED on 09/26/19 with history of generalized weakness, fatigue with dialysis on day of ED presentation secondary to increased weight with also HD the day prior with onset of generalized weakness, myalgias, hot and cold sweats with associated nausea with no emesis with no specific fever, chills, abdominal pain, diarrhea, worsened cough, dyspnea or alteration to sense of taste or smell referred to the ED per his budget and policy analyst for evaluation. ED physician did consult patient's budget and policy analyst who recommended admission for dialysis. Work-up in the ED included T 97.6, heart rate 83, BP 130/95, respiratory rate 14, 97% on room air, CBC with WBC 3.9, hemoglobin 16, platelet 192 with no left shift with increased monocytes, CMP with sodium 131, potassium 6.6, chloride 93, carbon oxide 33, BUN/creatinine 27/7.31, troponin less than 0.015, lipase 246, unremarkable hepatic profile, EKG was sinus rhythm, paced with no acute evidence of ischemia, chest x-ray with no acute cardiopulmonary findings. In the ED patient ministered normal saline and Zofran therapy. Past Medical History Past Medical History (Chronic Problems): Chronic Problems (Last Updated 09/24/19 @ 08:49 by Marci Cornelius) Chronic systolic (congestive) heart failure (Chronic) Essential hypertension (Chronic) Paroxysmal atrial fibrillation (Chronic) Dilated cardiomyopathy (Chronic) Presence of biventricular implantable cardioverter-defibrillator (Chronic) Supraventricular dysrhythmia (Chronic) Hyperlipidemia (Chronic) Seizure disorder (Chronic) Anemia of chronic disease (Chronic) ESRD (end stage renal disease) on dialysis (Chronic) Medical History: Medical History (Last Updated 09/24/19 @ 08:49 by Marci Cornelius) Chronic systolic (congestive) heart failure (Chronic) I50.22 Essential hypertension (Chronic) I10 Paroxysmal atrial fibrillation (Chronic) I48.0 Dilated cardiomyopathy (Chronic) I42.0 Dyspnea (Acute) R06.00 Elevated troponin (Acute) R79.89 Presence of biventricular implantable cardioverter-defibrillator (Chronic) Z95.810 Supraventricular dysrhythmia (Chronic) I49.9 Acute on chronic congestive heart failure (Acute) I50.9 Hyperlipidemia (Chronic) E78.5 Seizure disorder (Chronic) G40.909 Anemia of chronic disease (Chronic) D63.8 ESRD (end stage renal disease) on dialysis (Chronic) N18.6, Z99.2 CHF (congestive heart failure) (Inactive) I50.9 Cardiomyopathy (Inactive) I42.9 Allergies Penicillins Allergy (Verified 09/04/19 06:28) Unknown sulfamethoxazole [From Bactrim] Allergy (Verified 09/04/19 06:28) Swelling trimethoprim [From Bactrim] Allergy (Verified 09/04/19 06:28) Swelling Home Medications: Ambulatory Orders Medication Instructions Recorded Calcium Acetate [Phoslo Gel Cap] 1,334 mg PO TIDCM 03/08/14 Loperamide [Imodium] 2 - 4 mg PO Q6H PRN PRN 08/21/16 Allopurinol [Zyloprim] 100 mg PO DAILYCM 02/18/18 Tamsulosin HCl [Flomax] 0.4 mg PO DAILY 02/18/18 Simvastatin 20 mg PO QHS 04/14/18 Melatonin 5 mg PO QHS 11/05/18 Nitroglycerin 0.4 mg SL PRN PRN 11/05/18 DiphenhydrAMINE [Benadryl] 25 mg PO TID PRN PRN 11/26/18 Acetaminophen [Tylenol] 650 mg PO Q8H PRN PRN #30 cap 12/03/18 traMADol [Ultram] 50 mg PO Q8H PRN PRN 12/26/18 lisinopril 2.5 mg tablet 2.5 mg PO DAILY #90 tab 03/03/19 Cinacalcet HCl [Sensipar] 30 mg PO DAILY 05/13/19 Hydroxyzine HCl 75 mg PO DAILY PRN 05/13/19 proMETHazine tablet [Phenergan 25 mg PO Q6H PRN PRN #10 tab 07/30/19 tablet] Omeprazole 1 cap PO DAILY PRN 08/03/19 Ibuprofen [Motrin] 800 mg PO TID PRN PRN #20 tab 08/11/19 carvedilol 6.25 mg tablet 12.5 mg PO BID #120 tab 08/27/19 Doxycycline 100 mg PO BID 08/31/19 Ondansetron HCl [Zofran] 4 mg PO TID PRN #15 tab 09/01/19 Surgical History: pacemaker implantation, - - prosthetic right eye, Rt upper arm AVF, right adrenal gland removal for unknown reason. Psychiatric History: No pertinent psych hx Lives: Alone Smoking Status: Former smoker - Quit cigarette tobacco usage approximately 1 month prior to current presentation. 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 Drugs: None - *Family History Maternal History Items: Diabetes Paternal History Items: Heart Disease Review of Systems Constitutional: Reports: Malaise, Weakness, Fatigue. Denies: Anorexia, Chills, Fever, Weight Change HEENT: Denies: Head Aches, Sinus Congestion, Sinus Drainage Cardiovascular: Denies: Chest Pain, Chest Pressure, Chest Tightness, Light Headedness, Orthopnea, Palpitations, Syncope Respiratory: Denies: Cough, Shortness of Breath, Shortness of breath at rest, Shortness of breath upon exertion, Sputum production Gastrointestinal: Reports: Nausea. Denies: Abdominal Pain, Vomiting Genitourinary: Denies: Dysuria Musculoskeletal: Reports: Back Pain, Joint Pain. Denies: Joint Tenderness Skin: Denies: Rash, Wounds Neurological: Denies: Numbness, Tingling, Focal weakness Psychiatric: Denies: Anxiety, Depression, Homicidal Ideations, Suicidal Ideations Hematologic/ Lymphatic: Reports: Anemia, Easy Bruising, Easy Bleeding VTE Information - Inpt Only VTE Present on Admission: No VTE Mechan Device Prophylaxis: SCD's VTE Pharm Prophylaxis ordered?: Yes Patient Problems: Active and Suspected Problems (Last Updated 09/24/19 @ 08:49 by Marci Cornelius) Hyperkalemia (Acute) Subjective: Patient seated upright in the ED bed, fatigued appearing, no acute distress otherwise. Objective: Physical Examination: General: awake, alert, oriented x 3 and cooperative, seated upright in the ED bed, no acute distress, fatigued appearance. Skin: normal color, turgor, no icterus, cyanosis except notable stasis changes bilateral lower extremities. HEENT: AT/NC, EOMI, PERRLA, dry MM, no carotid bruits or JVD noted. Lungs: Diminished breath sounds, moderate effort, moderate decrease BL bases, no rales, ronchi or wheezing. Heart: Mildly tachycardic with regular rhythm/paced; no gallop, rub audible. Abdomen: soft, NTTP, ND, normal BS, no HSM. Extremities: no cyanosis, clubbing, or edema, see skin, right upper extremity with positive thrill AVF. Neurological: patient awake, alert, oriented as noted; cognitive function intact; pupils equally reactive to light and accomodation; cranial nerves II-XII grossly normal, moving all 4 extremities, no focal deficits, strength moderately globally Marleny secondary to acute presentation. Psychiatric: affect appears fatigued, flat, no acute evidence of depressive or anxiety feelings. - Physical Exam Vitals/I&O's: Vital Signs Temp Pulse Resp BP Pulse Ox 97.6 F L 86 19 H 124/76 H 96 09/26/19 14:59 09/26/19 19:01 09/26/19 19:01 09/26/19 19:01 09/26/19 19:01 Oxygen Delivery Method Room Air Weight: 153 lb 3.54 oz Body Mass Index (BMI) 22.6 Finger Stick Blood Glucose 95 Laboratory Results 09/26/19 17:05: WBC 3.9 L, RBC 5.38, Hgb 16.0, Hct 49.6, MCV 92.2, MCH 29.7, MCHC 32.3, RDW Std Deviation 51.9 H, RDW Coeff of Dharmesh 15.4 H, Plt Count 192, MPV 10.4, Immature Gran % (Auto) 0.300, Neut % (Auto) 51.5, Lymph % (Auto) 33.0, [place] % (Auto) 10.9 H, Eos % (Auto) 3.3, Baso % (Auto) 1.0, Absolute Neuts (auto) 2.0, Absolute Lymphs (auto) 1.30, Nucleated RBC % 0 09/26/19 17:05: Sodium 131 L, Potassium 6.6 H*, Chloride 93 L, Carbon Dioxide 33.0 H, Anion Gap 5, BUN 27 H, Creatinine 7.31 H, Estim Creat Clear Calc 10.56, Est GFR (MDRD) Af Amer 10 L, Est GFR (MDRD) Non-Af 8 L, BUN/Creatinine Ratio 3.7 L, Glucose 96, Calcium 9.0, Total Bilirubin 0.80, AST 12 L, ALT 20, Alkaline Phosphatase 105, Troponin I < 0.015, Total Protein 10.0 H, Albumin 3.7, Globulin 6.3 H, Albumin/Globulin Ratio 0.6 L, Lipase 246 Assessment/Plan All Active Problems (Last Updated 09/24/19 @ 08:49 by Marci Cornelius) Hyperkalemia (Acute) Dyspnea (Acute) Elevated troponin (Acute) Acute on chronic congestive heart failure (Acute) The patient is a 59 y/o M w/ PMHx: ESRD on HD MWF, PAF, HTN, HLD, Systolic CHF/Dilated Cardiomyopathy s/p pacemaker status, Seizure disorder, AOCD who presents to the [facility] ED on 09/26/19 with history of generalized weakness, fatigue with dialysis on day of ED presentation secondary to increased weight with also HD the day prior with onset of generalized weakness, myalgias, hot and cold sweats with associated nausea with no emesis with no specific fever, chills, abdominal pain, diarrhea, worsened cough, dyspnea or alteration to sense of taste or smell referred to the ED per his budget and policy analyst for evaluation. 1. Nausea, malaise, fatigue suspected secondary to Aute Hperkalemia in the setting of ESRD: We will admit to telemetry monitoring given level of potassium, planned HD today and also receiving for 2 hours with no ultrafiltration per nephrology discretion, trend BMP, maintain on fall precautions, PRN antiemetic regimen, if clinically improved may consider discharge to home in a.m. 2. ESRD: HD Saturday, dialyzed over the last 2 days, plan dialysis upon presentation secondary to #1, nephrology consulted and will follow, continue home PhosLo as well as Sensipar regimen for associated hyperparathyroidism. 3. Chronic systolic CHF/dilated cardiomyopathy: Status post pacemaker status, continue patient home Coreg, lisinopril, not on statin or diuretic but end-stage renal disease on dialysis with planned HD today as noted. 4. PAF: We will continue home Coreg regimen, not anticoagulated. 5. Hypertension: Continue home regimen including Coreg, lisinopril with hold parameters, PRN hydralazine. 6. Hyperlipidemia: Continue home statin therapy. 7. Former tobacco use: Encourage continued tobacco cessation. 8. Seizure disorder: From current list no antiepileptic medications, unclear prior etiology of seizure disorder, continue outpatient follow-up with patient's neurologist. 9. GERD: We will continue home PPI. 10. DVT prophylaxis: SCDs, heparin. 11. CODE status: Patient does not have healthcare power of research attorney nor living will set up. Discussed given his significant comorbidities and age this would be highly recommended and noted that he may discuss these items with case management/social work if interested in information. Discussed CODE status at length including difference between FULL code, DNR-CCA and DNR-CC status. Following discussions about the differences in these status, requested Full Code status. Advanced Care Planning Face to Face Time:16 minutes. OBSV E&M: 00888 Initial observation care L3 Procedures: 60132 Advncd Care Plan 30 Min
[2019-09-26 19:48] VITALS: BP 124/73; PULSE 95; RESP 14; TEMP 36.9; O2SAT 96
[2019-09-26 20:07] VITALS: BP 144/90; PULSE 74; PULSE 83; RESP 18; TEMP 36.9; O2SAT 97; BMI 21.8
[2019-09-26] MEDS: Carvedilol 12.5 MG Tablet PO (20:51)
[2019-09-26] MEDS: 0.9% Normal Saline 1,000 ML 75 ML IV (20:52)
[2019-09-26 22:17] LABS: Magnesium 2.5 mg/dL (1.6-2.6)
[2019-09-26] MEDS: Doxycycline 100 MG CAPSULE PO (22:22)
[2019-09-26] MEDS: Atorvastatin Calcium 10 MG Tablet PO (22:22)
[2019-09-26] MEDS: DiphenhydrAMINE 25 MG Capsule PO (22:23)
[2019-09-26] MEDS: MELATONIN 10 MG TABLET 5 MG PO (22:23)
[2019-09-27 00:17] LABS: Anion Gap 7 (5-15); BUN 18 mg/dL (7-18); BUN/Creat Ratio 3.8 RATIO (10-20); Calcium,Total 8.4 mg/dL (8.5-10.1); Chloride 101 mmol/L (98-107); Creatinine, Serum 4.76 mg/dL (0.70-1.30); EST Glomerular Filtration Rate 13 mL/min (>60); Est Glom Filt Rate - Afr Amer 16 mL/min (>60); Estimated Creatinine Clearance 15.64 ml/min; Glucose 183 mg/dL (74-106); Potassium 3.7 mmol/L (3.5-5.1); Sodium Level 138 mmol/L (136-145)
[2019-09-27 01:06] VITALS: BP 139/89; PULSE 80; RESP 16; TEMP 36.8; O2SAT 99
[2019-09-27 03:00] VITALS: PULSE 78
[2019-09-27 05:47] VITALS: BP 111/74; PULSE 89; RESP 18; TEMP 36.8; O2SAT 99
[2019-09-27] MEDS: Heparin Injection (Vial) 5,000 UNIT/ML VIAL 5000 UNIT SC ×2 (05:51→10:35)
[2019-09-27 05:58] LABS: Absolute Lymphocyte Count 1.58 X10^3/uL (0.83-4.51); Absolute Neutrophil Count 1.2 X10^3/uL (2.0-7.7); Basophil# 0.04 X10^3/uL; Basophil% 1.2 % (0-1); Eosinophils% 5.8 % (0-5); Hematocrit 44.4 % (40-54); Hemoglobin 14.1 g/dL (13.0-16.5); Lymphocyte # 1.58 X10^3/ul (4.0); Lymphocyte % 46.1 % (19-41); Mean Corp Hgb Conc 31.8 g/dL (32-36); Mean Corpuscular Hgb 29.4 pg (27.0-32.0); Mean Corpuscular Volume 92.7 fL (80-94); Mean Platelet Vol. 10.2 fl (6.2-12.0); Monocyte# 0.41 X10^3/uL; NRBC Flagged by Analyzer 0 % (0-5); Neutrophil % 34.9 % (47-70); Platelet Count 180 K/mm3 (150-450); RBC Distribution Width CV 15.6 % (11.6-14.6); RBC Distribution Width SD 52.4 fl (35.1-43.9); Red Blood Count 4.79 M/mm3 (4.6-6.2); White Blood Count 3.4 K/mm3 (4.4-11.0)
[2019-09-27 06:23] LABS: ALB/GLOB Ratio 0.7 RATIO (0.9-2.4); AST(SGOT) 11 U/L (15-37); Alanine Aminotransfer ALT/SGPT 15 U/L (16-61); Albumin, Serum 3.2 g/dL (3.2-5.0); Alkaline Phosphatase 86 U/L (45-117); Anion Gap 7 (5-15); BUN 23 mg/dL (7-18); BUN/Creat Ratio 3.8 RATIO (10-20); Calcium,Total 8.5 mg/dL (8.5-10.1); Chloride 101 mmol/L (98-107); Creatinine, Serum 6.06 mg/dL (0.70-1.30); EST Glomerular Filtration Rate 10 mL/min (>60); Est Glom Filt Rate - Afr Amer 12 mL/min (>60); Estimated Creatinine Clearance 11.92 ml/min; Globulin 4.9 g/dL (2.2-4.2); Glucose 101 mg/dL (74-106); Potassium 4.4 mmol/L (3.5-5.1); Protein, Total 8.1 g/dL (6.4-8.2); Sodium Level 137 mmol/L (136-145)
[2019-09-27 06:47] VITALS: O2SAT 98
[2019-09-27 07:10] VITALS: PULSE 83
[2019-09-27 10:31] VITALS: BP 127/79; PULSE 74; RESP 14; TEMP 36.8; O2SAT 99
[2019-09-27] MEDS: Calcium Acetate 667 MG Capsule 1334 MG PO ×2 (10:34→12:07)
[2019-09-27] MEDS: Doxycycline 100 MG CAPSULE PO (10:34)
[2019-09-27] MEDS: Carvedilol 12.5 MG Tablet PO (10:34)
[2019-09-27] MEDS: Allopurinol 100 MG Tablet PO (10:34)
[2019-09-27] MEDS: Cinacalcet HCl 30 MG Tablet PO (10:35)
[2019-09-27] MEDS: Lisinopril 2.5 MG Tablet PO (10:35)
--- NOTE | 2019-09-27 11:00 | DCINST_ITS ---
- Discharge Diagnoses Current Active Problems: Current Active and Chronic Problems (Last Updated 09/24/19 @ 08:49 by Marci Cornelius) Hyperkalemia (Acute) Generalized weakness (Acute) You will use the following diet at home:: Cardiac Your food should be the consistency of: Regular Discharge Activity: May Not Drive Call your doctor if you observe: Fever of 101 or Higher, Coldness, Increased Pain, Numbness or Tingling, Inability to urinate, Inability to have a bowel movement, Shortness of breath, Dizziness, Fainting spells, Swelling in the ankles, Chest pain, Prolonged hiccoughing, Increased palpitations (irregular heartbeat), Calf discomfort, Uncontrolled pain Allergies/Adverse Reactions: Allergies Penicillins Allergy (Verified 09/04/19 06:28) Unknown sulfamethoxazole [From Bactrim] Allergy (Verified 09/04/19 06:28) Swelling trimethoprim [From Bactrim] Allergy (Verified 09/04/19 06:28) Swelling Medications to take at Discharge Calcium Acetate [Phoslo Gel Cap] 1,334 mg PO TIDCM 03/08/14 Loperamide [Imodium] 2 - 4 mg PO Q6H PRN PRN 08/21/16 Allopurinol [Zyloprim] 100 mg PO DAILYCM 02/18/18 Tamsulosin HCl [Flomax] 0.4 mg PO DAILY 02/18/18 Simvastatin 20 mg PO QHS 04/14/18 Melatonin 5 mg PO QHS 11/05/18 Nitroglycerin 0.4 mg SL PRN PRN 11/05/18 DiphenhydrAMINE [Benadryl] 25 mg PO TID PRN PRN 11/26/18 Acetaminophen [Tylenol] 650 mg PO Q8H PRN PRN #30 cap 12/03/18 traMADol [Ultram] 50 mg PO Q8H PRN PRN 12/26/18 lisinopril 2.5 mg tablet 2.5 mg PO DAILY #90 tab 03/03/19 Cinacalcet HCl [Sensipar] 30 mg PO DAILY 05/13/19 Hydroxyzine HCl 75 mg PO DAILY PRN 05/13/19 proMETHazine tablet [Phenergan tablet] 25 mg PO Q6H PRN PRN #10 tab 07/30/19 Omeprazole 1 cap PO DAILY PRN 08/03/19 Ibuprofen [Motrin] 800 mg PO TID PRN PRN #20 tab 08/11/19 carvedilol 6.25 mg tablet 12.5 mg PO BID #120 tab 08/27/19 Doxycycline 100 mg PO BID 08/31/19 Ondansetron HCl [Zofran] 4 mg PO TID PRN #15 tab 09/01/19 Please follow up with your Primary Care Physician in: in 2 weeks Test Results: Test results from this visit will be discussed in further detail at your follow- up appointment, if applicable. Please Follow Up With: Filemon Spencer MD When: in 2-4 weeks
--- NOTE | 2019-09-27 12:04 | PCM.DC.SUM ---
<eNrissa Rios - Last Filed: 09/27/19 12:12> Discharge Date and Diagnosis Date of Admission: 09/26/19 Date of Discharge: 09/27/19 - Primary Discharge Diagnosis Acute Problems: Active Problems (Last Updated 09/24/19 @ 08:49 by Marci Cornelius) 1. Acute hyperkalemia in the context of end-stage renal disease with associated nausea, malaise 2. End-stage renal disease 3. Chronic systolic CHF/dilated cardiomyopathy 4. Paroxysmal atrial fibrillation 5. Hypertension 6. Hyperlipidemia 7. Former tobacco use 8. Seizure disorder 9. GERD - Secondary Discharge Diagnosis Chronic Problems: Chronic Problems (Last Updated 09/24/19 @ 08:49 by Marci Cornelius) Chronic systolic (congestive) heart failure (Chronic) Essential hypertension (Chronic) Paroxysmal atrial fibrillation (Chronic) Dilated cardiomyopathy (Chronic) Presence of biventricular implantable cardioverter-defibrillator (Chronic) Supraventricular dysrhythmia (Chronic) Hyperlipidemia (Chronic) Seizure disorder (Chronic) Anemia of chronic disease (Chronic) ESRD (end stage renal disease) on dialysis (Chronic) Hospital Course and Treatment Imaging Results: Diagnostic Data Chest X-Ray 09/26/19 16:28 IMPRESSION: No active pulmonary disease. Electronically Signed: Macario Page MD at 16:55 EDT Tel , Service support , Dr. Tavarez- Nephrology Operations: None Procedures: Dialysis Summary of Care Provided: The patient is a 59 year old M admitted 09/26/2019 due to malaise, fatigue, hyperkalemia. 1. Acute hyperkalemia in the context of end-stage renal disease with associated nausea, malaise-patient typically on dialysis Saturday, Saturday, Saturday. Patient underwent additional unscheduled dialysis treatment 09/26/2019 with resolve of hyperkalemia. Clinically improved with no further nausea or malaise. Discharge home with continued follow-up with nephrology/dialysis. 2. End-stage renal disease-continue outpatient follow-up as noted above. 3. Chronic systolic CHF/dilated cardiomyopathy-status post pacemaker. Continue Coreg, lisinopril. 4. Paroxysmal atrial fibrillation-continue home Coreg regimen. Not on anticoagulation. 5. Hypertension-continue Coreg, lisinopril. 6. Hyperlipidemia-continue statin. 7. Former tobacco use-encourage cessation. 8. Seizure disorder-not on antiepileptic regimen. 9. GERD-continue PPI. Patient seen and examined prior to discharge. Physical assessment as noted below. Patient is stable for discharge with follow up recommendations as noted above. This patient was seen by PAYTON Duke under the supervision of Dr. Patricia. - Physical Exam Vitals/I&O's: Vital Signs Temp Pulse Resp BP Pulse Ox 98.3 F 74 14 127/79 H 99 09/27/19 10:31 09/27/19 10:31 09/27/19 10:31 09/27/19 10:31 09/27/19 10:31 Oxygen Flow Rate (L/min) 2 Oxygen Delivery Method Room Air Weight: 143 lb 4.807 oz Body Mass Index (BMI) 21.8 Finger Stick Blood Glucose 95 Intake and Output for Last 24 Hours 09/25/19 09/26/19 09/27/19 23:59 23:59 23:59 Intake Total 583.75 / 583.75 766.25 / 766.25 Output Total 0 / 0 Balance 583.75 / 583.75 766.25 / 766.25 General: Alert, Oriented x3, Cooperative HEENT: Atraumatic, PERRLA, EOMI, Normocephalic Neck: Supple, No JVD, Negative Carotid Bruits Lungs: Clear to auscultation, Normal air movement Cardiovascular: Regular rate, No murmurs Abdomen: Bowel Sounds Present, Soft, Non Tender, Non-Distended Extremities: No clubbing, No cyanosis, No edema, Capillary Refill Less than 3 Seconds, - - Right upper extremity AV fistula Skin: No rashes, No breakdown Musculoskeletal: No Tenderness to Palpation of Joints or Extremities Neurological: Cranial nerves II-XII grossly intact, Neuro grossly intact Psych/Mental Status: Normal Affect, Appropriate Laboratory Results 09/26/19 17:05: WBC 3.9 L, RBC 5.38, Hgb 16.0, Hct 49.6, MCV 92.2, MCH 29.7, MCHC 32.3, RDW Std Deviation 51.9 H, RDW Coeff of Dharmesh 15.4 H, Plt Count 192, MPV 10.4, Immature Gran % (Auto) 0.300, Neut % (Auto) 51.5, Lymph % (Auto) 33.0, [place] % (Auto) 10.9 H, Eos % (Auto) 3.3, Baso % (Auto) 1.0, Absolute Neuts (auto) 2.0, Absolute Lymphs (auto) 1.30, Nucleated RBC % 0 09/26/19 17:05: Sodium 131 L, Potassium 6.6 H*, Chloride 93 L, Carbon Dioxide 33.0 H, Anion Gap 5, BUN 27 H, Creatinine 7.31 H, Estim Creat Clear Calc 10.56, Est GFR (MDRD) Af Amer 10 L, Est GFR (MDRD) Non-Af 8 L, BUN/Creatinine Ratio 3.7 L, Glucose 96, Calcium 9.0, Total Bilirubin 0.80, AST 12 L, ALT 20, Alkaline Phosphatase 105, Troponin I < 0.015, Total Protein 10.0 H, Albumin 3.7, Globulin 6.3 H, Albumin/Globulin Ratio 0.6 L, Lipase 246 09/26/19 17:05: Sodium Cancelled, Potassium Cancelled, Chloride Cancelled, Carbon Dioxide Cancelled, Anion Gap Cancelled, BUN Cancelled, Creatinine Cancelled, Est GFR (MDRD) Af Amer Cancelled, Est GFR (MDRD) Non-Af Cancelled, BUN/Creatinine Ratio Cancelled, Glucose Cancelled, Calcium Cancelled, Magnesium 2.5 09/26/19 17:05: Phosphorus 6.0 H 09/26/19 23:48: Sodium 138, Potassium 3.7, Chloride 101, Carbon Dioxide 30.0, Anion Gap 7, BUN 18, Creatinine 4.76 H, Estim Creat Clear Calc 15.64, Est GFR (MDRD) Af Amer 16 L, Est GFR (MDRD) Non-Af 13 L, BUN/Creatinine Ratio 3.8 L, Glucose 183 H, Calcium 8.4 L 09/27/19 05:14: WBC 3.4 L, RBC 4.79, Hgb 14.1, Hct 44.4, MCV 92.7, MCH 29.4, MCHC 31.8 L, RDW Std Deviation 52.4 H, RDW Coeff of Dharmesh 15.6 H, Plt Count 180, MPV 10.2, Immature Gran % (Auto) 0.000, Neut % (Auto) 34.9 L, Lymph % (Auto) 46.1 H, [place] % (Auto) 12.0 H, Eos % (Auto) 5.8 H, Baso % (Auto) 1.2 H, Absolute Neuts (auto) 1.2 L, Absolute Lymphs (auto) 1.58, Nucleated RBC % 0 09/27/19 05:14: Sodium 137, Potassium 4.4, Chloride 101, Carbon Dioxide 29.0, Anion Gap 7, BUN 23 H, Creatinine 6.06 H, Estim Creat Clear Calc 11.92, Est GFR (MDRD) Af Amer 12 L, Est GFR (MDRD) Non-Af 10 L, BUN/Creatinine Ratio 3.8 L, Glucose 101, Calcium 8.5, Total Bilirubin 0.60, AST 11 L, ALT 15 L, Alkaline Phosphatase 86, Total Protein 8.1, Albumin 3.2, Globulin 4.9 H, Albumin/Globulin Ratio 0.7 L Current Medications Acetaminophen (Tylenol) 650 mg PO Q6H PRN PRN PRN Reason: Pain Score 1-10/Temp > 100.7 F Al Hydroxide/Mg Hydroxide (Mylanta Ii) 30 ml PO Q6H PRN PRN PRN Reason: Gastric Burning Albuterol Sulfate (Ventolin Aerosols) 2.5 mg INHALATION Q2H PRN PRN PRN Reason: Dyspnea, wheezing [facility] Last Admin: 09/27/19 10:34 Dose: 100 mg Documented by: Atorvastatin Calcium (Lipitor) 10 mg PO QHS [facility] Last Admin: 09/26/19 22:22 Dose: 10 mg Documented by: Calcium Acetate (Phoslo Gel Cap) 1,334 mg PO TIDCM [facility] Last Admin: 09/27/19 10:34 Dose: 1,334 mg Documented by: [facility]il[facility] ([facility]g) [facility] Last Admin: 09/27/19 10:34 Dose: 12.5 mg Documented by: Cinacalcet (Sensipar) 30 mg PO DAILY [facility] Last Admin: 09/27/19 10:35 Dose: 30 mg Documented by: Dextrose (D50w Syringe) 0 gm IV X1 PRN; Protocol PRN Reason: Hypoglycemia Diphenhydramine HCl (Benadryl) 25 mg PO TID PRN PRN PRN Reason: ITCHING Last Admin: 09/26/19 22:23 Dose: 25 mg Documented by: Doxycycline Monohydrate (Doxycycline) 100 mg PO BID [facility] Last Admin: 09/27/19 10:34 Dose: 100 mg Documented by: Glucagon () 1 mg IM .X1 PRN PRN Reason: Hypoglycemia Guaifenesin (Robitussin) 20 ml PO Q4H PRN PRN PRN Reason: COUGH Heparin Sodium (Porcine) (Heparin Na) 5,000 unit SC Q12 [facility] Last Admin: 09/27/19 10:35 Dose: 5,000 unit Documented by: Hydralazine HCl (Apresoline Iv) 10 mg IV Q4H PRN PRN PRN Reason: SBP > 160 Hydroxyzine Pamoate (Vistaril Pamoate Capsule) 75 mg PO DAILY PRN PRN PRN Reason: ITCHING Sodium Chloride () 250 mls @ 15 mls/hr IV .[id number] PRN PRN Reason: Saline Flush Sodium Chloride () 250 mls @ 15 mls/hr IV .[id number] PRN PRN Reason: Additional IVPB Infusion Ibuprofen (Motrin) 800 mg PO TID PRN PRN PRN Reason: Pain Score 1-10/10 Lisinopril (Zestril) 2.5 mg PO DAILY [facility] Last Admin: 09/27/19 10:35 Dose: 2.5 mg Documented by: Loperamide HCl (Imodium) 2 - 4 mg PO Q6H PRN PRN PRN Reason: Diarrhea Melatonin (Melatonin) 5 mg PO QHS [facility] Last Admin: 09/26/19 22:23 Dose: 5 mg Documented by: Morphine Sulfate () 2 mg IV Q3H PRN PRN PRN Reason: Pain Score 6-10/10 Nitroglycerin (Nitrostat) 0.4 mg SUBLINGUAL Q5M PRN PRN Reason: CARDIAC/CHEST PAIN Ondansetron HCl (Zofran) 4 mg IV Q8H PRN PRN PRN Reason: NAUSEA/VOMITING Oxycodone HCl (Oxyir) 5 mg PO Q4H PRN PRN PRN Reason: Pain Score 4-5/10 Pantoprazole Sodium (Protonix) 40 mg PO DAILY PRN PRN PRN Reason: HEARTBURN Prochlorperazine Edisylate (Compazine Iv) 5 mg IV Q4H PRN PRN PRN Reason: Breakthrough Nausea/Vomiting Sodium Chloride () 10 - 40 ml IV UD PRN PRN Reason: SALINE FLUSH Throat Lozenges (Cepacol Sore Throat Lozenge) 1 lozenge MUCOUS MEM Q2H PRN PRN PRN Reason: SORE THROAT Tramadol HCl (Ultram) 50 mg PO Q8H PRN PRN PRN Reason: Pain Discharge Diet: Renal Diet Discharge Activity: May Not Drive Call your doctor if you observe: Fever of 101 or Higher, Coldness, Increased Pain, Numbness or Tingling, Inability to urinate, Inability to have a bowel movement, Shortness of breath, Dizziness, Fainting spells, Swelling in the ankles, Chest pain, Prolonged hiccoughing, Increased palpitations (irregular heartbeat), Calf discomfort, Uncontrolled pain Home Medications: Medications to take at Discharge Calcium Acetate [Phoslo Gel Cap] 1,334 mg PO TIDCM 03/08/14 Loperamide [Imodium] 2 - 4 mg PO Q6H PRN PRN 08/21/16 Allopurinol [Zyloprim] 100 mg PO DAILYCM 02/18/18 Tamsulosin HCl [Flomax] 0.4 mg PO DAILY 02/18/18 Simvastatin 20 mg PO QHS 04/14/18 Melatonin 5 mg PO QHS 11/05/18 Nitroglycerin 0.4 mg SL PRN PRN 11/05/18 DiphenhydrAMINE [Benadryl] 25 mg PO TID PRN PRN 11/26/18 Acetaminophen [Tylenol] 650 mg PO Q8H PRN PRN #30 cap 12/03/18 traMADol [Ultram] 50 mg PO Q8H PRN PRN 12/26/18 lisinopril 2.5 mg tablet 2.5 mg PO DAILY #90 tab 03/03/19 Cinacalcet HCl [Sensipar] 30 mg PO DAILY 05/13/19 Hydroxyzine HCl 75 mg PO DAILY PRN 05/13/19 proMETHazine tablet [Phenergan tablet] 25 mg PO Q6H PRN PRN #10 tab 07/30/19 Omeprazole 1 cap PO DAILY PRN 08/03/19 carvedilol 6.25 mg tablet 12.5 mg PO BID #120 tab 08/27/19 Doxycycline 100 mg PO BID 08/31/19 Ondansetron HCl [Zofran] 4 mg PO TID PRN #15 tab 09/01/19 Primary Care Physician: Aman Cabral MD [Primary Care Provider] - Please follow up with your Primary Care Physician in: in 2 weeks Please Follow Up With: Filemon Spencer MD When: in 2-4 weeks Disposition: Home Minutes spent on discharge:: 35 Patient Condition:: Stable Medical Necessity - Tobacco Use Smoking Status: Former smoker Tobacco Use: Non-smoker Meaningful Use Info Meaningful Use Diagnoses (Choose all that apply): None applicable <Prakash Patricia - Last Filed: 09/27/19 13:17> Discharge Date and Diagnosis - Secondary Discharge Diagnosis Chronic Problems: Chronic Problems (Last Updated 09/24/19 @ 08:49 by Marci Cornelius) Chronic systolic (congestive) heart failure (Chronic) Essential hypertension (Chronic) Paroxysmal atrial fibrillation (Chronic) Dilated cardiomyopathy (Chronic) Presence of biventricular implantable cardioverter-defibrillator (Chronic) Supraventricular dysrhythmia (Chronic) Hyperlipidemia (Chronic) Seizure disorder (Chronic) Anemia of chronic disease (Chronic) ESRD (end stage renal disease) on dialysis (Chronic) Hospital Course and Treatment Summary of Care Provided: This patient was seen in conjunction with PUBLIC WELFARE WORKER, Nerissa. I have independently interviewed and examined the patient and reviewed pertinent history, examination findings, laboratory and plan of management. I have reviewed the note and agree with the documented findings with the few additional points. In brief, patient is 59-year-old Afro-[place] gentleman admitted with acute hyperkalemia with symptoms of nausea, malaise and generalized weakness. Patient was dialyzed yesterday, 718 treated with resolution of hyperkalemia. Patient wants to go home. Patient follows [facility]. Patient has multiple comorbidities including chronic systolic heart failure with cardiomyopathy status post AICD, paroxysmal A. fib, supraventricular arrhythmia, seizure disorder, dyslipidemia and hypertension. Discharge medication reconciliation done. Discharge follow-up instructions completed. Discharge process discussed with the patient and all questions were answered to patient's satisfaction. Total time spent, exact 35 minutes on discharge meds reconciliation, examination, coordination of care with nurses and ancillary staff, review of imaging and blood test and discussion with the patient on follow-up instructions I have discussed my assessment with PUBLIC WELFARE WORKER, Nerissa and orders have been reviewed. [] Objective: Seen and examined. Patient was admitted with generalized weakness, nausea, malaise due to acute hyperkalemia with history of ESRD on hemodialysis. Patient has history of dilated cardiomyopathy with chronic systolic heart failure status post biventricular defibrillator. Patient stated he did not miss dialysis session. Patient was dialyzed yesterday night. Repeat K3.7 and then 4.4. Patient has little urine output, on renal replacement treatment. Physical exam: General: Alert, Oriented x3, Cooperative HEENT: Atraumatic, PERRLA, EOMI, Normocephalic Oral: No Gingival or Mucosal Lesions/ Ulcerations Neck: Supple, No JVD, Negative Carotid Bruits Lungs: Air entry diminished in bilateral lung bases. No crepitation/rhonchi Cardiovascular: Regular rate, Regular Rhythm, Normal S1, Normal S2, No murmurs. Status post AICD on left subclavicular area Abdomen: Bowel Sounds Present, Soft, Non Tender, Non-Distended : No renal angle tenderness. No suprapubic tenderness. Extremities: No edema, Capillary Refill Less than 3 Seconds Skin: No rashes, No breakdown Musculoskeletal: No Tenderness to Palpation of Joints or Extremities. Mild muscle atrophy of extremities Neurological: Cranial nerves II-XII grossly intact, Deep Tendon Reflexes 2+/4 and Symmetrical, Neuro grossly intact Psych/Mental Status: Normal Affect, Appropriate - Physical Exam Vitals/I&O's: Vital Signs Temp Pulse Resp BP Pulse Ox 98.3 F 74 14 127/79 H 99 09/27/19 10:31 09/27/19 10:31 09/27/19 10:31 09/27/19 10:31 09/27/19 10:31 Oxygen Flow Rate (L/min) 2 Oxygen Delivery Method Room Air Weight: 143 lb 4.807 oz Body Mass Index (BMI) 21.8 Finger Stick Blood Glucose 95 Intake and Output for Last 24 Hours 09/25/19 09/26/19 09/27/19 23:59 23:59 23:59 Intake Total 583.75 / 583.75 1006.25 / 1006.25 Output Total 0 / 0 Balance 583.75 / 583.75 1006.25 / 1006.25 Laboratory Results 09/26/19 17:05: WBC 3.9 L, RBC 5.38, Hgb 16.0, Hct 49.6, MCV 92.2, MCH 29.7, MCHC 32.3, RDW Std Deviation 51.9 H, RDW Coeff of Dharmesh 15.4 H, Plt Count 192, MPV 10.4, Immature Gran % (Auto) 0.300, Neut % (Auto) 51.5, Lymph % (Auto) 33.0, [place] % (Auto) 10.9 H, Eos % (Auto) 3.3, Baso % (Auto) 1.0, Absolute Neuts (auto) 2.0, Absolute Lymphs (auto) 1.30, Nucleated RBC % 0 09/26/19 17:05: Sodium 131 L, Potassium 6.6 H*, Chloride 93 L, Carbon Dioxide 33.0 H, Anion Gap 5, BUN 27 H, Creatinine 7.31 H, Estim Creat Clear Calc 10.56, Est GFR (MDRD) Af Amer 10 L, Est GFR (MDRD) Non-Af 8 L, BUN/Creatinine Ratio 3.7 L, Glucose 96, Calcium 9.0, Total Bilirubin 0.80, AST 12 L, ALT 20, Alkaline Phosphatase 105, Troponin I < 0.015, Total Protein 10.0 H, Albumin 3.7, Globulin 6.3 H, Albumin/Globulin Ratio 0.6 L, Lipase 246 09/26/19 17:05: Sodium Cancelled, Potassium Cancelled, Chloride Cancelled, Carbon Dioxide Cancelled, Anion Gap Cancelled, BUN Cancelled, Creatinine Cancelled, Est GFR (MDRD) Af Amer Cancelled, Est GFR (MDRD) Non-Af Cancelled, BUN/Creatinine Ratio Cancelled, Glucose Cancelled, Calcium Cancelled, Magnesium 2.5 09/26/19 17:05: Phosphorus 6.0 H 09/26/19 23:48: Sodium 138, Potassium 3.7, Chloride 101, Carbon Dioxide 30.0, Anion Gap 7, BUN 18, Creatinine 4.76 H, Estim Creat Clear Calc 15.64, Est GFR (MDRD) Af Amer 16 L, Est GFR (MDRD) Non-Af 13 L, BUN/Creatinine Ratio 3.8 L, Glucose 183 H, Calcium 8.4 L 09/27/19 05:14: WBC 3.4 L, RBC 4.79, Hgb 14.1, Hct 44.4, MCV 92.7, MCH 29.4, MCHC 31.8 L, RDW Std Deviation 52.4 H, RDW Coeff of Dharmesh 15.6 H, Plt Count 180, MPV 10.2, Immature Gran % (Auto) 0.000, Neut % (Auto) 34.9 L, Lymph % (Auto) 46.1 H, [place] % (Auto) 12.0 H, Eos % (Auto) 5.8 H, Baso % (Auto) 1.2 H, Absolute Neuts (auto) 1.2 L, Absolute Lymphs (auto) 1.58, Nucleated RBC % 0 09/27/19 05:14: Sodium 137, Potassium 4.4, Chloride 101, Carbon Dioxide 29.0, Anion Gap 7, BUN 23 H, Creatinine 6.06 H, Estim Creat Clear Calc 11.92, Est GFR (MDRD) Af Amer 12 L, Est GFR (MDRD) Non-Af 10 L, BUN/Creatinine Ratio 3.8 L, Glucose 101, Calcium 8.5, Total Bilirubin 0.60, AST 11 L, ALT 15 L, Alkaline Phosphatase 86, Total Protein 8.1, Albumin 3.2, Globulin 4.9 H, Albumin/Globulin Ratio 0.7 L Current Medications Acetaminophen (Tylenol) 650 mg PO Q6H PRN PRN PRN Reason: Pain Score 1-10/Temp > 100.7 F Al Hydroxide/Mg Hydroxide (Mylanta Ii) 30 ml PO Q6H PRN PRN PRN Reason: Gastric Burning Albuterol Sulfate (Ventolin Aerosols) 2.5 mg INHALATION Q2H PRN PRN PRN Reason: Dyspnea, wheezing [facility]) [facility] Last Admin: 09/27/19 10:34 Dose: 100 mg Documented by: Atorvastatin Calcium (Lipitor) 10 mg PO QHS [facility] Last Admin: 09/26/19 22:22 Dose: 10 mg Documented by: Calcium Acetate (Phoslo Gel Cap) 1,[facility] Last Admin: 09/27/19 12:07 Dose: 1,334 mg Documented by: Carvedil[facility] ([facility]g) [facility] Last Admin: 09/27/19 10:34 Dose: 12.5 mg Documented by: Cinacalcet (Sensipar) 30 mg PO DAILY [facility] Last Admin: 09/27/19 10:35 Dose: 30 mg Documented by: Dextrose (D50w Syringe) 0 gm IV X1 PRN; Protocol PRN Reason: Hypoglycemia Diphenhydramine HCl (Benadryl) 25 mg PO TID PRN PRN PRN Reason: ITCHING Last Admin: 09/26/19 22:23 Dose: 25 mg Documented by: Doxycycline Monohydrate (Doxycycline) 100 mg PO BID [facility] Last Admin: 09/27/19 10:34 Dose: 100 mg Documented by: Glucagon () 1 mg IM .X1 PRN PRN Reason: Hypoglycemia Guaifenesin (Robitussin) 20 ml PO Q4H PRN PRN PRN Reason: COUGH Heparin Sodium (Porcine) (Heparin Na) 5,000 unit SC Q12 [facility] Last Admin: 09/27/19 10:35 Dose: 5,000 unit Documented by: Hydralazine HCl (Apresoline Iv) 10 mg IV Q4H PRN PRN PRN Reason: SBP > 160 Hydroxyzine Pamoate (Vistaril Pamoate Capsule) 75 mg PO DAILY PRN PRN PRN Reason: ITCHING Sodium Chloride () 250 mls @ 15 mls/hr IV .[id number] PRN PRN Reason: Saline Flush Sodium Chloride () 250 mls @ 15 mls/hr IV .[id number] PRN PRN Reason: Additional IVPB Infusion Ibuprofen (Motrin) 800 mg PO TID PRN PRN PRN Reason: Pain Score 1-10/10 Lisinopril (Zestril) 2.5 mg PO DAILY [facility] Last Admin: 09/27/19 10:35 Dose: 2.5 mg Documented by: Loperamide HCl (Imodium) 2 - 4 mg PO Q6H PRN PRN PRN Reason: Diarrhea Melatonin (Melatonin) 5 mg PO QHS [facility] Last Admin: 09/26/19 22:23 Dose: 5 mg Documented by: Morphine Sulfate () 2 mg IV Q3H PRN PRN PRN Reason: Pain Score 6-10/10 Nitroglycerin (Nitrostat) 0.4 mg SUBLINGUAL Q5M PRN PRN Reason: CARDIAC/CHEST PAIN Ondansetron HCl (Zofran) 4 mg IV Q8H PRN PRN PRN Reason: NAUSEA/VOMITING Oxycodone HCl (Oxyir) 5 mg PO Q4H PRN PRN PRN Reason: Pain Score 4-5/10 Pantoprazole Sodium (Protonix) 40 mg PO DAILY PRN PRN PRN Reason: HEARTBURN Prochlorperazine Edisylate (Compazine Iv) 5 mg IV Q4H PRN PRN PRN Reason: Breakthrough Nausea/Vomiting Sodium Chloride () 10 - 40 ml IV UD PRN PRN Reason: SALINE FLUSH Throat Lozenges (Cepacol Sore Throat Lozenge) 1 lozenge MUCOUS MEM Q2H PRN PRN PRN Reason: SORE THROAT Tramadol HCl (Ultram) 50 mg PO Q8H PRN PRN PRN Reason: Pain OBSV E&M: 99102 Observation care discharge
== END 2019-09-27 11:01 | disposition home or self-care (01) ==
LOC: ED 15:59 → PCU 22:07
PROVIDERS: Admitting Provider Family Medicine; Emergency Provider Emergency Medicine; PCP Internal Medicine; Visit Provider Internal Medicine
DX: E87.5 Hyperkalemia (principal); I13.2 Hypertensive heart and chronic kidney disease with heart failure and with stage 5 chronic kidney disease, or end stage renal disease; N18.6 End stage renal disease; I48.0 Paroxysmal atrial fibrillation; I50.22 Chronic systolic (congestive) heart failure; K21.9 Gastro-esophageal reflux disease without esophagitis; E78.5 Hyperlipidemia, unspecified; I42.0 Dilated cardiomyopathy; D63.8 Anemia in other chronic diseases classified elsewhere; Z87.891 Personal history of nicotine dependence; Z79.899 Other long term (current) drug therapy; Z95.810 Presence of automatic (implantable) cardiac defibrillator; Z99.2 Dependence on renal dialysis
CPT/HCPCS: 36415; 71045; 80048; 80053; 83690; 83735; 84100; 84484; 85025; 90937; 93005; 96360; 96361; 96372; 99218; 99251; 99285; J7030; J7050; A4216; G0257; G0378; G0463

== ENCOUNTER 2019-10-29 12:30 | Emergency (ER) | payer MEDICARE, MEDICAID, SELFPAY ==
[2019-09-26 20:07] VITALS: BMI 21.8
[2019-10-29 12:31] VITALS: BP 90/59; PULSE 71; RESP 20; TEMP 34.6; BMI 24.3
[2019-10-29 12:36] VITALS: O2SAT 93
--- NOTE | 2019-10-29 12:45 | EKG12_ITS ---
Test Reason : Blood Pressure : / mmHG Vent. Rate : 063 BPM Atrial Rate : 063 BPM P-R Int : 174 ms QRS Dur : 144 ms QT Int : 496 ms P-R-T Axes : 071 032 159 degrees QTc Int : 507 ms Suspect unspecified pacemaker failure Atrial-sensed ventricular-paced rhythm Abnormal ECG Confirmed by JOSEPH DINH, JENNIFER ([id number]), editor index BHAVANI JEREZ ([id number]) on 11/06/2019 11:13:01 A M Referred By: DOUG Confirmed By:ANGEL RUIZ MD
--- NOTE | 2019-10-29 12:57 | ED.VIS.GEN ---
History of Present Illness Chief Complaint: General Illness Informant: Patient Narrative: Patient is a 59-year-old male who presents to the ED for an episode of feeling very hot. He had a similar episode on Saturday after getting his dialysis. He is on the Saturday, Saturday, Saturday schedule. He did well with the dialysis yesterday. States he has not been eating and drinking as he was told not to by the dialysis team due to water weight. At time of arrival to the ED patient is now stating he feels cold. Otherwise does not have any significant complaints. He denies any recent illnesses including any fevers. No cough, cold, congestion. No chest pain or shortness of breath. No abdominal pain. He had some mild loose stools. Been feeling nauseous but no episodes of vomiting. No known sick contacts. No rashes. No headache or vision changes. No sore throat. Past Medical History - Allergies and Home Meds Allergies/Adverse Reactions: Allergies Penicillins Allergy (Verified 10/29/19 12:31) Unknown sulfamethoxazole [From Bactrim] Allergy (Verified 10/29/19 12:31) Swelling trimethoprim [From Bactrim] Allergy (Verified 10/29/19 12:31) Swelling Primary Care Physician: Aman Cabral MD [Primary Care Provider] - 3-5 Days Past Medical History: - - Hypertension, hyperlipidemia, end-stage renal disease on dialysis, A. fib, heart failure Surgical History: pacemaker implantation, - - prosthetic right eye, Rt upper arm AVF, right adrenal gland removal for unknown reason. Smoking Status: Current some day smoker Alcohol: Rare Drugs: None - Family History Maternal Family History: Reports: Diabetes Paternal Family History: Reports: Heart Disease Review of Systems All systems negative except as indicated General: Reports: Chills, Sweats. Denies: Fever Eyes: Denies: Visual changes - bilaterally, Diplopia ENT: Denies: Rhinorrhea, Sore throat Cardiovascular: Denies: Chest pain, Palpitations Respiratory: Denies: Dyspnea, Cough, Dyspnea on exertion Gastrointestinal: Denies: Abdominal pain, Nausea, Vomiting, Diarrhea, Melena, Hematochezia Musculoskeletal: Denies: Back pain, Extremity Pain Skin: Denies: Rash, Wounds Neurological: Denies: Headache, Weakness, Numbness Physical Exam Vital Signs/Narrative: Vital Signs Temp Pulse Resp BP Pulse Ox 10/29/19 12:36 93 10/29/19 12:31 94.3 F L 71 20 H 90/59 L Inital Vital Signs reviewed: Yes General: Cachectic, No Acute Distress Head: Normocephalic, Atraumatic Eyes: Perrl, EOMI ENT: Moist mucous membranes, No rhinorrhea Neck: Supple, Nontender Cardiovascular: Regular rate, Regular rhythm, No murmurs, - - Right arm graft Respiratory: No distress, CTA bilaterally, Chest nontender Abdomen: Soft, Nontender, Nondistended, Normal bowel sounds Back: Nontender, Normal Inspection Extremities: Nontender, No edema. Negative for: Edema, Calf Tenderness Skin: Normal color, No rash Neurological: Alert, Oriented x3, Cranial nerves II-XII grossly intact, Normal Strength, Normal Sensation Psychological: Normal affect, Normal Mood Diagnostic/Tx/Re-eval - EKG Initial EKG Interpretation: - - Rate of 63 bpm and a atrial sensed ventricular paced rhythm. Has the QRS of 144. QTC of 507. No significant ST elevations or depressions appreciated. Prior EKG for comparison was performed on September 252019. This is similar in appearance. - Medical Decision Making Patient is a 59-year-old male who presents to the ED for an episode of feeling very hot. Now that he is in the air conditioned he feels very cold. Upon arrival he does have low blood pressure. He states he does feel slightly dehydrated as he is not been drinking. They did take fluid off yesterday at his dialysis schedule. Otherwise no infectious symptoms. He is hypothermic upon arrival as well. Will obtain septic work-up given the low blood pressure and low temperature. We will give a small bolus dose of normal saline given his history of cardiomyopathy and end-stage renal disease. Patient's blood pressure came up with the IV fluids. He is feeling much better at this time. Lab work did not reveal any significant acute abnormality. His creatinine is high but he is on end-stage renal disease with dialysis. Potassium mildly elevated but was hemolyzed. He is supposed to get dialysis tomorrow. He does feel comfortable going home at this time. Will discharge home in stable condition. Warning signs and symptoms for which to return to the ED are reviewed. He understands and is agreeable with this plan. ED Disposition - Plan for ED Patient: Disposition: Home or Assisted Living Diagnosis: Dehydration, Generalized weakness Instructions: ED Dehydration Adult Referrals: Aman Cabral MD [Primary Care Provider] - 3-5 Days Additional Instructions: Keep regular dialysis schedule.
--- NOTE | 2019-10-29 13:30 | RAD_ITS ---
STUDY: X-RAY CHEST REASON FOR EXAM: Male, 59 years old. PT STATES and quot;I FEEL HOT and quot; REPORTS SYMPTOMS STARTING TODAY. COPD TECHNIQUE: Single AP portable view of the chest. COMPARISON: None. FINDINGS: Pacemaker is seen on the left side. The lungs are clear and expanded. There is no demonstrated pleural abnormality. Normal size heart. Normal mediastinum and anselmo. Normal visualized pulmonary arteries. Normal visualized aortic arch and descending thoracic aorta. Normal visualized thoracic spine. There is degenerative osteoarthritis of the bilateral shoulders. There is no demonstrated abnormality of the visualized soft tissue structures of the upper abdomen. RAD/Chest 1 View (Portable) IMPRESSION: Degenerative changes, as described above. No demonstrated acute cardiopulmonary process. Electronically Signed: Andie Coelho, at 14:15 EDT Tel , Service support ,
[2019-10-29 13:32] LABS: Absolute Lymphocyte Count 2.18 X10^3/uL (0.83-4.51); Absolute Neutrophil Count 3.3 X10^3/uL (2.0-7.7); Basophil# 0.05 X10^3/uL; Basophil% 0.8 % (0-1); Eosinophil# 0.27 X10^3/uL; Eosinophils% 4.4 % (0-5); Hematocrit 45.5 % (40-54); Hemoglobin 14.4 g/dL (13.0-16.5); Lymphocyte # 2.18 X10^3/ul (4.0); Lymphocyte % 35.2 % (19-41); Mean Corp Hgb Conc 31.6 g/dL (32-36); Mean Corpuscular Hgb 28.9 pg (27.0-32.0); Mean Corpuscular Volume 91.4 fL (80-94); Mean Platelet Vol. 10.7 fl (6.2-12.0); Monocyte# 0.35 X10^3/uL; Monocyte% 5.6 % (0-10); NRBC Flagged by Analyzer 0 % (0-5); Neutrophil # 3.32 X10^3/uL (2.7-7.7); Neutrophil % 53.5 % (47-70); Platelet Count 152 K/mm3 (150-450); RBC Distribution Width SD 47.2 fl (35.1-43.9); Red Blood Count 4.98 M/mm3 (4.6-6.2); White Blood Count 6.2 K/mm3 (4.4-11.0)
[2019-10-29 13:48] LABS: Lactic Acid 1.9 mmol/L (0.4-1.9)
[2019-10-29 13:49] LABS: ALB/GLOB Ratio 0.6 RATIO (0.9-2.4); AST(SGOT) 17 U/L (15-37); Alanine Aminotransfer ALT/SGPT 20 U/L (16-61); Albumin, Serum 3.6 g/dL (3.2-5.0); Alkaline Phosphatase 99 U/L (45-117); Anion Gap 6 (5-15); BUN 53 mg/dL (7-18); BUN/Creat Ratio 4.3 RATIO (10-20); Calcium,Total 9.6 mg/dL (8.5-10.1); Chloride 99 mmol/L (98-107); EST Glomerular Filtration Rate 5 mL/min (>60); Est Glom Filt Rate - Afr Amer 6 mL/min (>60); Estimated Creatinine Clearance 6.44 ml/min; Globulin 5.9 g/dL (2.2-4.2); Glucose 143 mg/dL (74-106); Potassium 5.8 mmol/L (3.5-5.1); Protein, Total 9.5 g/dL (6.4-8.2); Sodium Level 136 mmol/L (136-145)
[2019-10-29 13:50] VITALS: BP 134/87; PULSE 99; RESP 29; O2SAT 97
[2019-10-29 13:52] VITALS: TEMP 35
[2019-10-29 15:12] VITALS: BP 124/84; PULSE 91; RESP 17; TEMP 35.8; O2SAT 99
== END 2019-10-29 15:13 | disposition home or self-care (01) ==
PROVIDERS: Emergency Provider Emergency Medicine; PCP Internal Medicine
DX: E86.0 Dehydration (principal); R53.1 Weakness; Z95.0 Presence of cardiac pacemaker
CPT/HCPCS: 71045; 80053; 83605; 84484; 85025; 87040; 93005; 99284

== ENCOUNTER 2019-11-04 13:32 | Emergency (ER) | payer MEDICARE, MEDICAID, SELFPAY ==
[2019-11-04 13:33] VITALS: BP 118/87; PULSE 75; RESP 16; TEMP 36.5; O2SAT 97; BMI 23.1
[2019-11-04 13:41] VITALS: BP 118/87; PULSE 72; RESP 15; O2SAT 99
--- NOTE | 2019-11-04 14:02 | EKG12_ITS ---
Test Reason : SYNCOPY Blood Pressure : / mmHG Vent. Rate : 079 BPM Atrial Rate : 079 BPM P-R Int : 164 ms QRS Dur : 148 ms QT Int : 464 ms P-R-T Axes : 059 043 213 degrees QTc Int : 532 ms Suspect unspecified pacemaker failure Atrial-sensed ventricular-paced rhythm Abnormal ECG Confirmed by JOSEPH DINH, JENNIFER ([id number]), market editor BHAVANI JEREZ ([id number]) on 11/06/2019 11:28:01 A M Referred By: KOURTNEY Confirmed By:ANGEL RUIZ MD
--- NOTE | 2019-11-04 14:09 | ED.DCSUM_ITS ---
- ER Visit Summary Date of Service: 11/04/19 Chief Complaint: Sweats History of Present Illness: The patient is a 59 M who was triaged for syncope. He actually presents for sweating. He has a history of end-stage renal disease. He went to dialysis this morning. They took off 1 L. He did not have any is sues with dialysis. He went home and took a nap. He woke up sweaty and then had chills. No other symptoms at all previously or otherwise today. He has a history of atrial fibrillation, hyperkalemia, cardiomyopathy, seizures, anemia, hypertension, CHF, hyperlipidemia as well. He is a smoker. Physical Examination: Afebrile and vital signs unremarkable. Patient is alert and oriented. No acute distress. HEENT exam shows normal inspection. Heart regular rate and rhythm. Lungs clear. Abdomen soft. Skin, calves, pulses, extremities unremarkable. Fistula right arm. Test Results: EKG, labs, chest x-ray, cultures, COVID-19 pending. Emergency Department Course and Treatment: Patient presents with chills and sweats. No other associated symptoms. He has a cardiac, renal history. He is at risk for complications of COVID-19. We will check testing as above. He will be placed on a monitor. Work-up is unremarkable. Platelets 149, potassium 5.7, CO2 36, BUN 28, creatinine 8.29. Troponin is normal. Chest x-ray shows chronic changes. COVID and blood cultures are pending. At this time, there no findings to explain his chills and sweats. Will call him for abnormal cultures or COVID testing. I spoke with Dr. Spencer about his potassium. His EKG is unremarkable. He advised giving Kayexalate 15 g today and again tomorrow with follow-up dialysis on Saturday. Treatment Plan: As above Disposition: Discharge Impression: Chills, hyperkalemia This note was generated with [employer] dictation software. It may contain incorrect words, spelling, and punctuation that were not noted in review of the chart prior to signing ED Disposition - Plan for ED Patient: Referrals: Aman Cabral MD [Primary Care Provider] -
--- NOTE | 2019-11-04 14:40 | RAD_ITS ---
STUDY: X-RAY CHEST REASON FOR EXAM: Male, 59 years old. Syncope, chest pain TECHNIQUE: Single AP portable view of the chest. COMPARISON: Comparison is made with prior study dated 10/29/2019. FINDINGS: Hyperinflation. EKG electrodes are seen. The lungs are clear. There is no demonstrated pleural abnormality. A left-sided dual-chamber pacemaker is present. Normal mediastinum and anselmo. Normal visualized pulmonary arteries. Normal visualized aortic arch and descending thoracic aorta. There are diffuse degenerative changes of the visualized thoracic spine. There is degenerative osteoarthritis of the bilateral shoulders. There is no demonstrated abnormality of the visualized soft tissue structures of the upper abdomen. RAD/Chest 1 View (Portable) IMPRESSION: Hyperinflation. The lungs are clear. Electronically Signed: Russ Elias, at 15:22 EDT , Service support ,
[2019-11-04 14:45] VITALS: O2SAT 98
[2019-11-04 15:32] LABS: Absolute Lymphocyte Count 1.47 X10^3/uL (0.83-4.51); Absolute Neutrophil Count 2.7 X10^3/uL (2.0-7.7); Basophil# 0.03 X10^3/uL; Basophil% 0.6 % (0-1); Eosinophil# 0.24 X10^3/uL; Hemoglobin 14.3 g/dL (13.0-16.5); Lymphocyte # 1.47 X10^3/ul (4.0); Lymphocyte % 30.5 % (19-41); Mean Corp Hgb Conc 32.5 g/dL (32-36); Mean Corpuscular Hgb 29.1 pg (27.0-32.0); Mean Corpuscular Volume 89.6 fL (80-94); Monocyte% 8.3 % (0-10); NRBC Flagged by Analyzer 0 % (0-5); Neutrophil # 2.67 X10^3/uL (2.7-7.7); Neutrophil % 55.4 % (47-70); Platelet Count 149 K/mm3 (150-450); RBC Distribution Width CV 14.1 % (11.6-14.6); RBC Distribution Width SD 45.4 fl (35.1-43.9); Red Blood Count 4.91 M/mm3 (4.6-6.2); White Blood Count 4.8 K/mm3 (4.4-11.0)
[2019-11-04 15:52] LABS: Anion Gap 5 (5-15); BUN 28 mg/dL (7-18); BUN/Creat Ratio 3.4 RATIO (10-20); Calcium,Total 9.1 mg/dL (8.5-10.1); Chloride 96 mmol/L (98-107); Creatinine, Serum 8.29 mg/dL (0.70-1.30); EST Glomerular Filtration Rate 7 mL/min (>60); Est Glom Filt Rate - Afr Amer 9 mL/min (>60); Estimated Creatinine Clearance 9.48 ml/min; Glucose 105 mg/dL (74-106); Potassium 5.7 mmol/L (3.5-5.1); Sodium Level 137 mmol/L (136-145)
[2019-11-04 16:32] VITALS: BP 102/71; PULSE 110; RESP 18; O2SAT 100
--- NOTE | 2019-11-04 16:39 | ED.DEP ---
ED Disposition - Plan for ED Patient: Instructions: Hyperkalemia Prescriptions: Sodium Polystyrene Sulfonate [Kayexalate] 15 gm PO DAILY 1 Days #60 ml Prescription Printed Referrals: Aman Cabral MD [Primary Care Provider] - Filemon Spencer MD [STAFF PHYSICIAN] - Additional Instructions: Go to dialysis on Saturday
[2019-11-04] MEDS: Sodium Polystyrene Sulfonate 15 GM/60 ML UDC PO (16:57)
[2019-11-04 17:04] VITALS: BP 101/79; PULSE 100; RESP 18; O2SAT 99
== END 2019-11-04 17:05 | disposition home or self-care (01) ==
PROVIDERS: Emergency Provider Emergency Medicine; PCP Internal Medicine
DX: R68.83 Chills (without fever) (principal); E87.5 Hyperkalemia; I13.2 Hypertensive heart and chronic kidney disease with heart failure and with stage 5 chronic kidney disease, or end stage renal disease; N18.6 End stage renal disease; I50.9 Heart failure, unspecified; D63.1 Anemia in chronic kidney disease; I42.9 Cardiomyopathy, unspecified; I48.91 Unspecified atrial fibrillation; E78.5 Hyperlipidemia, unspecified; F17.200 Nicotine dependence, unspecified, uncomplicated; Z99.2 Dependence on renal dialysis; Z79.899 Other long term (current) drug therapy
CPT/HCPCS: 71045; 80048; 84484; 85025; 87635; 93005; 94799; 99285; A4216; U0003

== ENCOUNTER 2019-11-23 12:57 | Emergency (ER) | payer MEDICARE, MEDICAID, SELFPAY ==
[2019-11-23 12:58] VITALS: BP 146/85; PULSE 60; RESP 15; TEMP 36.5; O2SAT 96; BMI 25.6
--- NOTE | 2019-11-23 13:17 | ED.DCSUM_ITS ---
History of Present Illness Chief Complaint: Edema Narrative: Patient finished dialysis, he thinks maybe not enough fluid was taken off since he still had some abdominal swelling and some lower extremity swelling. However they have resolved upon ED arrival and now he feels asymptomatic. He has no chest pain shortness of breath fever or chills. Past Medical History - Allergies and Home Meds Allergies/Adverse Reactions: Allergies Penicillins Allergy (Verified 11/23/19 13:03) Unknown sulfamethoxazole [From Bactrim] Allergy (Verified 11/23/19 13:03) Swelling trimethoprim [From Bactrim] Allergy (Verified 11/23/19 13:03) Swelling Primary Care Physician: Aman Cabral MD [Primary Care Provider] - Past Medical History: - - Retention, hypercholesterolemia, end-stage renal d isease on hemodialysis Saturday. Surgical History: pacemaker implantation, - - prosthetic right eye, Rt upper arm AVF, right adrenal gland removal for unknown reason. Smoking Status: Current some day smoker - Family History Maternal Family History: Reports: Diabetes Paternal Family History: Reports: Heart Disease Review of Systems General: Denies: Fever Cardiovascular: Denies: Chest pain, Palpitations Respiratory: Denies: Dyspnea, Cough Gastrointestinal: Denies: Abdominal pain, Nausea, Vomiting Musculoskeletal: Denies: Myalgias Skin: Denies: Rash Neurological: Denies: Weakness Psych: Denies: Depression Hematologic: Reports: Easy bruising Physical Exam Vital Signs/Narrative: Vital Signs Temp Pulse Resp BP Pulse Ox 11/23/19 12:58 97.7 F L 60 15 146/85 H 96 General: No Acute Distress, - - Patient appears chronically ill but does not appear in any distress Eyes: Negative for: Pale conjunctiva ENT: Moist mucous membranes Neck: Supple Cardiovascular: Regular rate, Regular rhythm Respiratory: No distress, CTA bilaterally, - - Speaks in full sentences no tachypnea. Abdomen: Soft, Nontender - Nondistended no edema no fluid wave Back: Nontender, Normal Inspection Extremities: Nontender, No edema Skin: Normal color Neurological: Alert, Normal Strength, Normal Sensation Diagnostic/Tx/Re-eval - Medical Decision Making Patient does not appear in any current distress he appears quite comfortable he actually wishes to be discharged since he has significantly improved and feels better. I will discharge him in stable condition ED Disposition - Plan for ED Patient: Disposition: [facility] or Unit Diagnosis: ESRD (end stage renal disease), ESRD (end stage renal disease) on dialysis Instructions: ED END STAGE RENAL DISEASE Referrals: Aman Cabral MD [Primary Care Provider] - 2 Days
[2019-11-23 14:07] VITALS: BP 141/71; PULSE 82; RESP 17; O2SAT 92
== END 2019-11-23 14:14 | disposition home or self-care (01) ==
LOC: ED 13:20
PROVIDERS: Emergency Provider Emergency Medicine; PCP Internal Medicine
DX: N18.6 End stage renal disease (principal); Z99.2 Dependence on renal dialysis; E78.00 Pure hypercholesterolemia, unspecified
CPT/HCPCS: 99284

== ENCOUNTER 2020-02-16 19:00 | Emergency (ER) | payer MEDICARE, SELFPAY ==
[2020-02-16 19:15] VITALS: BP 102/65; PULSE 68; RESP 48; TEMP 35.6; BMI 24.4
[2020-02-16 19:23] VITALS: BP 107/83; PULSE 94; RESP 30; TEMP 35.6; O2SAT 100
[2020-02-16 19:37] VITALS: O2SAT 98
--- NOTE | 2020-02-16 19:41 | EKG12_ITS ---
Test Reason : SOB Blood Pressure : / mmHG Vent. Rate : 068 BPM Atrial Rate : 068 BPM P-R Int : 158 ms QRS Dur : 146 ms QT Int : 528 ms P-R-T Axes : 061 119 089 degrees QTc Int : 561 ms Suspect unspecified pacemaker failure Atrial-sensed ventricular-paced rhythm Abnormal ECG Confirmed by JOSEPH DINH, JENNIFER ([id number]), newspaper photo editor BHAVANI JEREZ ([id number]) on 02/19/2020 8:52:25 A M Referred By: DENNIS Confirmed By:ANGEL RUIZ MD
--- NOTE | 2020-02-16 19:42 | CT_ITS ---
STUDY: CT ABDOMEN AND PELVIS WITHOUT CONTRAST REASON FOR EXAM: Male, 59 years old. ABDOMINAL PAIN, SOB, VOMITING. RADIATION DOSAGE (If Supplied By Facility): CTDIvol = ( 6.15 ) mGy, DLP = ( 295.15 ) mGycm TECHNIQUE: Transaxial images were obtained from the dome of the diaphragm to the symphysis pubis without oral contrast, and without intravenous contrast. Sagittal and coronal images were reconstructed. Individualized dose optimization techniques were used for this CT. COMPARISON: 08/27/2016 and 09/04/2019 FINDINGS: There is a stable subpleural 6 mm nodule within the right lower lobe. There is atelectasis and/or scarring within the left lower lobe. There is a cardiac pacer device in place. The lack of intravenous contrast limits evaluation of solid visceral organs. Normal liver. Normal gallbladder and extrahepatic biliary system. Normal spleen. Normal pancreas. Normal bilateral adrenal glands. There is right renal atrophy associated with cysts. There is less pronounced left renal atrophy and left renal cysts. There is a stable high attenuation 4.1 x 4.2 cm rounded focus arising from the left kidney that contains few peripheral calcifications. Normal visualized stomach. Normal small intestine. There are multiple colonic diverticula consistent with diverticulosis. The colon is incompletely distended and appears stable. The appendix is visualized and appears normal. There is diffuse atherosclerotic calcification of the abdominal aorta, without a demonstrated aneurysm. Normal inferior vena cava. Normal retroperitoneum. Normal urinary bladder. Normal abdominal wall. There are diffuse degenerative changes of the visualized thoracic spine and lumbar spine. CT/Abdomen/Pelvis without Cont IMPRESSION: Stable CT of the abdomen and pelvis demonstrating no acute process. Colonic diverticulosis. Stable renal atrophy associated with bilateral cysts. Stable left renal mass. Electronically Signed: Ryann Ortiz MD at 22:09 EST Tel , Service support ,
--- NOTE | 2020-02-16 19:43 | ED.DCSUM_ITS ---
History of Present Illness Chief Complaint: Shortness of Breath Narrative: Patient presents with shortness of breath. He had dialysis yesterday, a few hours ago he developed shortness of breath, he feels like he is fluid overloaded. However after he called the paramedics he became somewhat diaphoretic he had some abdominal pain and he had an episode of emesis. He denies back pain or tearing sensation. He has no pleuritic component. He denies fever or chills or muscle aches. Past Medical History - Allergies and Home Meds Allergies/Adverse Reactions: Allergies Penicillins Allergy (Verified 02/16/20 19:41) Unknown sulfamethoxazole [From Bactrim] Allergy (Verified 02/16/20 19:41) Swelling trimethoprim [From Bactrim] Allergy (Verified 02/16/20 19:41) Swelling Primary Care Physician: Aman Cabral MD [Primary Care Provider] - Past Medical History: - - Pretension, hypercholesterolemia, end-stage renal failure on dialysis, pacemaker, otherwise reviewed his medication and medical history Surgical History: pacemaker implantation, - - prosthetic right eye, Rt upper arm AVF, right adrenal gland removal for unknown reason. Smoking Status: Current some day smoker - Family History Maternal Family History: Reports: Diabetes Paternal Family History: Reports: Heart Disease Review of Systems General: Reports: Sweats. Denies: Fever Eyes: Denies: Visual changes - bilaterally ENT: Denies: Rhinorrhea, Sore throat Cardiovascular: Denies: Chest pain Respiratory: Reports: Dyspnea. Denies: Cough, Sputum Gastrointestinal: Reports: Abdominal pain, Nausea, Vomiting Genitourinary: Denies: Dysuria Musculoskeletal: Denies: Myalgias, Arthralgias Skin: Denies: Rash Neurological: Denies: Headache, Weakness Psych: Denies: Depression Hematologic: Denies: Easy bruising Allergy: Denies: Uticaria Physical Exam Vital Signs/Narrative: Vital Signs Temp Pulse Resp BP Pulse Ox 02/16/20 19:37 98 02/16/20 19:23 96.0 F L 94 30 H 107/83 H 100 02/16/20 19:15 96.0 F L 68 48 H 102/65 General: - - Patient appears chronically ill. He appears in some distress he is hyperventilating. He is slightly diaphoretic. Head: Normocephalic Eyes: Perrl, EOMI ENT: Moist mucous membranes Neck: Supple Cardiovascular: Regular rhythm, Tachycardia Respiratory: - - He is tachypneic but overall coarse lungs, he is speaking in 4- 5 word sentences. Abdomen: Soft, - - There is epigastric tenderness, no guarding or rebound. No lower abdominal pain. Back: Nontender, Normal Inspection Extremities: Nontender, No edema, - - Patient has right-sided fistula which is intact with a palpable thrill Skin: Normal color Neurological: Alert, Normal Strength, Normal Sensation Diagnostic/Tx/Re-eval - Medical Decision Making Patient has a normal ED work-up he appears well. He received antiemetics and significantly improved. He has dialysis in about 6 hours, his potassium is slightly elevated but his EKG is completely normal. I talked to his equipment maintenance engineer and he is okay with discharge and dialysis in the next few hours I believe this is quite reasonable. ED Disposition - Plan for ED Patient: Diagnosis: Nausea, ESRD (end stage renal disease) on dialysis Instructions: ED Vomiting (Adult) Prescriptions: Ondansetron [Zofran Odt] 4 mg PO Q8H PRN PRN #10 tab PRN Reason: Nausea Transmission Status: Pending to [facility]/pharmacy #[id number] Referrals: Aman Cabral MD [Primary Care Provider] -
[2020-02-16 19:51] LABS: Absolute Lymphocyte Count 3.05 X10^3/uL (0.83-4.51); Absolute Neutrophil Count 2.9 X10^3/uL (2.0-7.7); Basophil# 0.05 X10^3/uL; Basophil% 0.7 % (0-1); Eosinophil# 0.29 X10^3/uL; Eosinophils% 4.2 % (0-5); Hematocrit 46.2 % (40-54); Hemoglobin 15.2 g/dL (13.0-16.5); Lymphocyte # 3.05 X10^3/ul (4.0); Lymphocyte % 44.5 % (19-41); Mean Corp Hgb Conc 32.9 g/dL (32-36); Mean Corpuscular Volume 91.1 fL (80-94); Mean Platelet Vol. 10.6 fl (6.2-12.0); Monocyte# 0.57 X10^3/uL; Monocyte% 8.3 % (0-10); NRBC Flagged by Analyzer 0 % (0-5); Neutrophil # 2.89 X10^3/uL (2.7-7.7); Neutrophil % 42.2 % (47-70); Platelet Count 177 K/mm3 (150-450); RBC Distribution Width CV 13.2 % (11.6-14.6); RBC Distribution Width SD 43.7 fl (35.1-43.9); Red Blood Count 5.07 M/mm3 (4.6-6.2); White Blood Count 6.9 K/mm3 (4.4-11.0)
[2020-02-16 20:15] LABS: BNP,B-Type NATRIURETIC PEPTIDE 17.8 pg/mL (0-100)
[2020-02-16 20:30] VITALS: PULSE 77; RESP 22
[2020-02-16 20:32] LABS: ALB/GLOB Ratio 0.7 RATIO (0.9-2.4); AST(SGOT) 4 U/L (15-37); Alanine Aminotransfer ALT/SGPT 15 U/L (16-61); Albumin, Serum 3.8 g/dL (3.2-5.0); Alkaline Phosphatase 127 U/L (45-117); Anion Gap 14 (5-15); BUN 47 mg/dL (7-18); BUN/Creat Ratio 3.6 RATIO (10-20); Calcium,Total 9.7 mg/dL (8.5-10.1); Chloride 95 mmol/L (98-107); EST Glomerular Filtration Rate 4 mL/min (>60); Est Glom Filt Rate - Afr Amer 5 mL/min (>60); Globulin 5.8 g/dL (2.2-4.2); Glucose 102 mg/dL (74-106); Potassium 5.9 mmol/L (3.5-5.1); Protein, Total 9.6 g/dL (6.4-8.2); Sodium Level 136 mmol/L (136-145)
[2020-02-16] MEDS: Albuterol 2.5 MG/3 ML VIAL.NEB. INHALATION ×3 (20:38→20:41)
--- NOTE | 2020-02-16 21:40 | RAD_ITS ---
STUDY: X-RAY CHEST REASON FOR EXAM: Male, 59 years old. Shortness of breath. TECHNIQUE: Single frontal view of the chest. COMPARISON: 11/04/2019 FINDINGS: There is no new focal consolidation. There is stable cardiomegaly. There is a cardiac pacer device. Normal mediastinum and anselmo. Normal visualized pulmonary arteries. Normal visualized aortic arch and descending thoracic aorta. Normal visualized thoracic spine. Normal visualized ribs, clavicles, and shoulders. There is no demonstrated abnormality of the visualized soft tissue structures of the upper abdomen. RAD/Chest 1 View (Portable) IMPRESSION: No acute cardiopulmonary process. Electronically Signed: Ryann Ortiz MD at 22:09 EST Tel , Service support ,
[2020-02-16] MEDS: Ondansetron ODT 4 MG Tablet PO (22:34)
[2020-02-16 23:05] VITALS: BP 122/81; PULSE 90; RESP 26; O2SAT 97
== END 2020-02-16 23:06 | disposition home or self-care (01) ==
PROVIDERS: Emergency Provider Emergency Medicine; PCP Internal Medicine
DX: R11.0 Nausea (principal); N18.6 End stage renal disease; E78.00 Pure hypercholesterolemia, unspecified; F17.200 Nicotine dependence, unspecified, uncomplicated; Z99.2 Dependence on renal dialysis
CPT/HCPCS: 71045; 74176; 80053; 83880; 84484; 85025; 87426; 93005; 94640; 99285; A4216; J2405

== ENCOUNTER 2020-02-17 06:39 | Emergency (ER) | payer MEDICARE, MEDICAID, SELFPAY ==
[2020-02-16 19:15] VITALS: BMI 24.4
[2020-02-17 06:40] VITALS: BP 112/88; PULSE 66; RESP 22; TEMP 36; BMI 23.6
[2020-02-17 06:54] VITALS: O2SAT 97
--- NOTE | 2020-02-17 07:03 | EKG12_ITS ---
Test Reason : SOB Blood Pressure : / mmHG Vent. Rate : 073 BPM Atrial Rate : 073 BPM P-R Int : 174 ms QRS Dur : 144 ms QT Int : 480 ms P-R-T Axes : 062 -21 106 degrees QTc Int : 528 ms Suspect unspecified pacemaker failure Atrial-sensed ventricular-paced rhythm Abnormal ECG Confirmed by MODESTA DINH, MEHDI ([id number]), legal editor BHAVANI JEREZ ([id number]) on 02/19/2020 2:02:05 PM Referred By: HAYLEY Confirmed By:MEHDI BYERS MD
--- NOTE | 2020-02-17 07:07 | ED.DCSUM_ITS ---
History of Present Illness Chief Complaint: Hypotension Informant: Patient Onset: Today Narrative: Patient sent from dialysis center before getting any dialysis due to low blood pressure, the patient states it was 77 systolic while he was sitting at rest. States he is short of breath. He was seen here last night for shortness of breath with a negative work-up, and he got better. He denies having any cough or fevers or chest discomfort. He has some mild abdominal discomfort in his epigastrium with some nausea. He denies any swelling. Denies palpitations, lightheadedness, syncope. Patient presents during the national coronavirus emergency declaration/pandemic. He denies any known contact with anyone infected with COVID-19. He denies traveling out of the immediate area recently. - Past Medical History (1) Chronic systolic (congestive) heart failure Status: Chronic (2) Essential hypertension Status: Chronic (3) Paroxysmal atrial fibrillation Status: Chronic (4) Dilated cardiomyopathy Status: Chronic (5) Presence of biventricular implantable cardioverter-defibrillator Status: Chronic (6) Hyperlipidemia Status: Chronic (7) Seizure disorder Status: Chronic (8) Anemia of chronic disease Status: Chronic (9) ESRD (end stage renal disease) on dialysis Status: Chronic Past Medical History - Allergies and Home Meds Allergies/Adverse Reactions: Allergies Penicillins Allergy (Verified 02/16/20 19:41) Unknown sulfamethoxazole [From Bactrim] Allergy (Verified 02/16/20 19:41) Swelling trimethoprim [From Bactrim] Allergy (Verified 02/16/20 19:41) Swelling Primary Care Physician: Aman Cabral MD [Primary Care Provider] - Doctors: Neph - last seen by Dr. Tavarez Surgical History: pacemaker implantation, - - prosthetic right eye, Rt upper arm AVF, right adrenal gland removal for unknown reason. Smoking Status: Current some day smoker - Family History Maternal Family History: Reports: Diabetes Paternal Family History: Reports: Heart Disease Review of Systems General: Reports: Malaise. Denies: Chills, Fever, Sweats Eyes: Denies: Visual changes - bilaterally, Diplopia ENT: Denies: Bilateral ear pain, Rhinorrhea, Sore throat Cardiovascular: Denies: Chest pain, Palpitations Respiratory: Reports: Dyspnea. Denies: Cough, Dyspnea on exertion Gastrointestinal: Reports: Abdominal pain, Nausea. Denies: Vomiting, Diarrhea, Melena, Hematochezia Genitourinary: Denies: Dysuria, Hematuria, Frequency Musculoskeletal: Denies: Myalgias, Back pain, Swelling, Extremity Pain Skin: Denies: Rash, Wounds Neurological: Denies: Headache, Weakness, Numbness Physical Exam Vital Signs/Narrative: Vital Signs Temp Pulse Resp BP Pulse Ox 02/17/20 06:54 97 02/17/20 06:40 96.8 F L 66 22 H 112/88 H Inital Vital Signs reviewed: Yes General: Well nourished, Well developed, No Acute Distress - But tachypneic Head: Normocephalic, Atraumatic Eyes: Perrl, EOMI ENT: Moist mucous membranes, No rhinorrhea Neck: Supple, Nontender Cardiovascular: Regular rate, Regular rhythm, No murmurs Respiratory: No distress, CTA bilaterally, Chest nontender, Diminished - Throughout, symmetrically Abdomen: Soft, Nontender, Nondistended, Normal bowel sounds Back: Nontender, Normal Inspection. Negative for: CVA tenderness Extremities: Nontender, No edema. Negative for: Calf Tenderness Skin: Normal color, No rash, No Trauma Neurological: Alert, Oriented x3, Cranial nerves II-XII grossly intact, Normal Strength, Normal Sensation Psychological: Normal affect, Normal Mood Diagnostic/Tx/Re-eval Impressions Chest X-Ray 02/17/20 07:10 IMPRESSION: No acute cardiopulmonary abnormality. at 0733 Reported and signed by: Sarah Viveros MD Electronically Signed: Sarah Viveros MD at 7:32 EST Tel , Service support , 02/17/20 07:10 Chest 1 View (Portable) [RAD] Stat Laboratory Results 02/17/20 02/17/20 02/17/20 07:50 07:50 08:07 WBC 6.5 RBC 5.45 Hgb 16.3 Hct 49.2 MCV 90.3 MCH 29.9 MCHC 33.1 RDW Std Deviation 43.3 RDW Coeff of Dharmesh 13.2 Plt Count 119 L MPV 10.9 Immature Gran % (Auto) 0.500 Neut % (Auto) 63.0 Lymph % (Auto) 26.6 Dickinson % (Auto) 8.7 Eos % (Auto) 0.6 Baso % (Auto) 0.6 Absolute Neuts (auto) 4.1 Absolute Lymphs (auto) 1.72 Nucleated RBC % 0 Platelet Estimate SLT DEC Specimen Type STANTON Sample Site L Brach VBG pH 7.42 VBG pO2 23 L VBG HCO3 30 H VBG Total CO2 31 VBG O2 Sat (Calc) 42 L VBG Base Excess 5 H POC Mix VBG pCO2 Pt Tmp 46.0 O2 Delivery Device Cannula Liter Flow 3.0 Sodium 131 L Potassium 6.6 H* Chloride 96 L Carbon Dioxide 21.0 Anion Gap 14 BUN 63 H Creatinine 14.60 H* Estim Creat Clear Calc 5.21 Est GFR (MDRD) Af Amer 4 L Est GFR (MDRD) Non-Af 4 L BUN/Creatinine Ratio 4.3 L Glucose 95 Calcium 9.6 Troponin I < 0.015 - Rhythm Strip Rhythm Strip: Sinus Rhythm Rate: 73 Ectopy: None - EKG Initial EKG Interpretation: Sinus Rhythm - With ventricular pace and capture, No Acute Injury Pattern Prior: Unchanged Treatment - Dyspnea: Albuterol Repeat Evaluation: Improved With Ambulation: Asymptomatic - Medical Decision Making Studies show worsening hyperkalemia compared with when the patient was here last night. Otherwise his work-up was unremarkable. His dyspnea resolved after an albuterol treatment and he remained asymptomatic here in the ER. His blood pressure remained over 100 throughout his visit with multiple readings, systolic pressure varying from 104-122. I discussed with nephrology Dr. Spencer, who advises giving the patient a dose of Kayexalate and calcium, however we were not able to get an IV on him, so he was okay with him going to dialysis after discussing with the center and verifying that they can take him now. We are arranging transport. Of note, patient tested negative for COVID-19 yesterday and given that he is better after an albuterol treatment only, I do not think he needs further work- up for pulmonary embolus or other acute emergent thoracic disease. ED Disposition - Plan for ED Patient: Disposition: Home or Assisted Living Diagnosis: Transient hypotension, Reactive airway disease, ESRD (end stage renal disease) on dialysis, Hyperkalemia, diminished renal excretion Instructions: ED Low Blood Pressure, All Causes Referrals: Filemon Spencer MD [STAFF PHYSICIAN] - (go to dialysis now)
--- NOTE | 2020-02-17 07:10 | RAD_ITS ---
HISTORY: PT AT DIALYSIS TODAY, LOW BP AND Tquot;SHORT OF BREATHTquot; COPD ADDITIONAL HISTORY: None provided. EXAMINATION/TECHNIQUE: XR Chest 1 View AP/PA Number of images including paperwork: 2 COMPARISON: 02/16/2020 FINDINGS: LUNGS AND PLEURA: No consolidation, mass or pleural effusion. CARDIAC SILHOUETTE: Stable. MEDIASTINUM AND MARK: Stable. UPPER ABDOMEN: Unremarkable. SKELETON AND SOFT TISSUES: No acute skeletal findings. Degenerative changes. OTHER DEVICES AND HARDWARE: Biventricular ICD with left-sided generator. RAD/Chest 1 View (Portable) IMPRESSION: No acute cardiopulmonary abnormality. at 0733 Reported and signed by: Sarah Viveros MD Electronically Signed: Sarah Viveros MD at 7:32 EST Tel , Service support ,
[2020-02-17] MEDS: Albuterol 2.5 MG/3 ML VIAL.NEB. INHALATION (07:30)
[2020-02-17 07:31] VITALS: PULSE 77; RESP 12; O2SAT 100
[2020-02-17 07:55] LABS: Absolute Lymphocyte Count 1.72 X10^3/uL (0.83-4.51); Absolute Neutrophil Count 4.1 X10^3/uL (2.0-7.7); Basophil# 0.04 X10^3/uL; Basophil% 0.6 % (0-1); Eosinophil# 0.04 X10^3/uL; Eosinophils% 0.6 % (0-5); Hematocrit 49.2 % (40-54); Hemoglobin 16.3 g/dL (13.0-16.5); Lymphocyte # 1.72 X10^3/ul (4.0); Lymphocyte % 26.6 % (19-41); Mean Corp Hgb Conc 33.1 g/dL (32-36); Mean Corpuscular Hgb 29.9 pg (27.0-32.0); Mean Corpuscular Volume 90.3 fL (80-94); Mean Platelet Vol. 10.9 fl (6.2-12.0); Monocyte# 0.56 X10^3/uL; Monocyte% 8.7 % (0-10); NRBC Flagged by Analyzer 0 % (0-5); Neutrophil # 4.08 X10^3/uL (2.7-7.7); POSITIVE COUNT YES; Platelet Count 119 K/mm3 (150-450); RBC Distribution Width CV 13.2 % (11.6-14.6); RBC Distribution Width SD 43.3 fl (35.1-43.9); Red Blood Count 5.45 M/mm3 (4.6-6.2); White Blood Count 6.5 K/mm3 (4.4-11.0)
[2020-02-17 08:03] LABS: Differential Indicated SCAN CRITERIA MET
[2020-02-17 08:14] LABS: Platelet Estimate SLT DEC (ADEQ)
[2020-02-17 08:15] LABS: Blood Gas Specimen Type VEN; O2 Delivery Device Cannula; SITE L Brach; VBG BASE EXCESS 5 mmol/L (-1.0-3.5); VBG Bicarbonate 30 mmol/L (22-26); VBG PO2 23 mmHg (25-40); VBG SO2 42 % (50-70); VBG TCO2 31 mmol/L (23-33); VBG pH 7.42 (7.32-7.42)
[2020-02-17 08:19] LABS: Anion Gap 14 (5-15); BUN 63 mg/dL (7-18); BUN/Creat Ratio 4.3 RATIO (10-20); Calcium,Total 9.6 mg/dL (8.5-10.1); Chloride 96 mmol/L (98-107); EST Glomerular Filtration Rate 4 mL/min (>60); Est Glom Filt Rate - Afr Amer 4 mL/min (>60); Estimated Creatinine Clearance 5.21 ml/min; Glucose 95 mg/dL (74-106); Potassium 6.6 mmol/L (3.5-5.1); Sodium Level 131 mmol/L (136-145)
[2020-02-17 08:26] VITALS: BP 104/72; PULSE 79; RESP 15; O2SAT 100
[2020-02-17] MEDS: Sodium Polystyrene Sulfonate 15 GM/60 ML UDC PO (08:57)
--- NOTE | 2020-02-17 09:03 | ED.RN ---
THIS NURSE CONTACTED [facility] FOR TRANSPORT TO DIALYSIS
[2020-02-17 09:37] VITALS: BP 118/74; PULSE 57; RESP 16; O2SAT 100
== END 2020-02-17 09:39 | disposition home or self-care (01) ==
PROVIDERS: Emergency Provider Emergency Medicine; PCP Internal Medicine
DX: I95.9 Hypotension, unspecified (principal); J44.9 Chronic obstructive pulmonary disease, unspecified; E87.5 Hyperkalemia; E78.5 Hyperlipidemia, unspecified; I13.2 Hypertensive heart and chronic kidney disease with heart failure and with stage 5 chronic kidney disease, or end stage renal disease; N18.6 End stage renal disease; I50.22 Chronic systolic (congestive) heart failure; D63.1 Anemia in chronic kidney disease; I42.0 Dilated cardiomyopathy; I48.0 Paroxysmal atrial fibrillation; G40.909 Epilepsy, unspecified, not intractable, without status epilepticus; F17.200 Nicotine dependence, unspecified, uncomplicated; Z99.2 Dependence on renal dialysis; Z95.810 Presence of automatic (implantable) cardiac defibrillator; Z88.0 Allergy status to penicillin; Z88.1 Allergy status to other antibiotic agents; Z88.2 Allergy status to sulfonamides; Z79.899 Other long term (current) drug therapy
CPT/HCPCS: 36415; 71045; 80048; 82803; 84484; 85025; 93005; 94640; 99284

== ENCOUNTER 2020-02-18 13:55 | Inpatient (IN) | payer MEDICARE, MEDICAID, SELFPAY ==
[2020-02-17 06:40] VITALS: BMI 23.6
[2020-02-18] VITALS (18 sets, daily range): BP systolic 57–131; BP diastolic 37–87; PULSE 60–143; RESP 12–30; TEMP 35.4–36.2; O2SAT 92–100; BMI 23.3; BMI 22.6
--- NOTE | 2020-02-18 14:06 | EKG12_ITS ---
Test Reason : Blood Pressure : / mmHG Vent. Rate : 060 BPM Atrial Rate : 060 BPM P-R Int : 164 ms QRS Dur : 150 ms QT Int : 592 ms P-R-T Axes : 038 -46 075 degrees QTc Int : 592 ms AV dual-paced rhythm Abnormal ECG Confirmed by MODESTA DINH, MEHDI ([id number]), editorial cartoonist BHAVANI JEREZ ([id number]) on 02/19/2020 2:11:58 PM Referred By: JERZY Confirmed By:MEHDI BYERS MD
--- NOTE | 2020-02-18 14:06 | RAD_ITS ---
STUDY: X-RAY CHEST REASON FOR EXAM: Male, 59 years old. SHORTNESS OF BREATH X SEVERAL DAYS TECHNIQUE: Single AP portable view of the chest. COMPARISON: Comparison is made with prior study dated 02/17/2020. FINDINGS: EKG electrodes are seen. Hyperinflation. The lungs are clear. There is no demonstrated pleural abnormality. Normal size heart. A left-sided dual-chamber pacemaker is seen. Normal mediastinum and anselmo. Normal visualized pulmonary arteries. Normal visualized aortic arch and descending thoracic aorta. Normal visualized thoracic spine. There is degenerative osteoarthritis of the bilateral shoulders. There is no demonstrated abnormality of the visualized soft tissue structures of the upper abdomen. RAD/Chest 1 View (Portable) IMPRESSION: Hyperinflation. The lungs are clear. Electronically Signed: Russ Elias, at 15:05 EST , Service support ,
--- NOTE | 2020-02-18 14:08 | ED.DCSUM_ITS ---
- ER Visit Summary Date of Service: 02/18/20 Chief Complaint: Shortness of breath, weakness History of Present Illness: The patient is a 59 M who presents with shortness of breath. Is been ongoing for 3 days. He has been seen here twice over the past 2 days. Yesterday he had hyperkalemia and was sent to dialysis. He states he did receive dialysis but has not improved. He still feels short of breath and weak. He denies cough or fever. His blood pressure was 128/100 with EMS but here his blood pressure is low. The blood pressure was low yesterday upon his arrival but it improved throughout his stay. He denies any exposure to coronavirus. Physical Examination: Vital signs reviewed. He is tachypneic around 38. HEENT exam unremarkable. Heart is regular rate and rhythm without murmurs. Lungs have rhonchorous breath sounds bilaterally. He is tachypneic. Abdomen is soft and nontender. Extremities reveal no edema. Skin exam normal. Neurologic exam normal. Test Results:EKG is paced at a rate of 60. He does have some mildly hyperacute T waves. He has a potassium of 6.8 and a creatinine of 14. Emergency Department Course and Treatment: The patient potassium is actually higher than it was yesterday. He states he had 3-1/2 hours of dialysis yesterday. Gave him calcium, sodium bicarb, albuterol and normal saline. Due to this I feel he needs to be admitted. I spoke with Dr. Felix, his neph rologist. He is going to arrange dialysis for him due to the EKG changes. I discussed with the hospitalist, Dr. Lugo for admission. He requested an additional dose of Kayexalate be given. Treatment Plan: [] Disposition: Admit Impression: Hyperkalemia, end-stage renal disease on dialysis This note was generated with [employer] dictation software. It may contain incorrect words, spelling, and punctuation that were not noted in review of the chart prior to signing ED Disposition - Plan for ED Patient: Referrals: Aman Cabral MD [Primary Care Provider] -
[2020-02-18] MEDS: 0.9% Normal Saline 1,000 ML 999 ML IV (14:23)
[2020-02-18] MEDS: Albuterol 2.5 MG/3 ML VIAL.NEB. INHALATION (14:55)
[2020-02-18 16:04] LABS: Anion Gap 25 (5-15); BUN 65 mg/dL (7-18); BUN/Creat Ratio 4.6 RATIO (10-20); Calcium,Total 9.4 mg/dL (8.5-10.1); Chloride 90 mmol/L (98-107); EST Glomerular Filtration Rate 4 mL/min (>60); Est Glom Filt Rate - Afr Amer 5 mL/min (>60); Estimated Creatinine Clearance 5.61 ml/min; Glucose 97 mg/dL (74-106); Potassium 6.8 mmol/L (3.5-5.1); Sodium Level 131 mmol/L (136-145)
[2020-02-18] MEDS: Calcium Gluconate 1 GM/10 ML Vial IV (16:29)
[2020-02-18] MEDS: Dextrose 50%-Water 25 GM/50 ML DISP.SYRIN IV (16:30)
[2020-02-18] MEDS: Insulin Lispro 5 UNIT in Syringe 0 ML 3 UNIT IV (16:30)
--- NOTE | 2020-02-18 16:30 | HP.PCM_ITS ---
<Liam Constantino - Last Filed: 02/18/20 16:30> Problem List (1) Hyperkalemia Status: Acute (2) Chronic systolic (congestive) heart failure Status: Chronic (3) Essential hypertension Status: Chronic (4) Paroxysmal atrial fibrillation Status: Chronic (5) Dilated cardiomyopathy Status: Chronic (6) Presence of biventricular implantable cardioverter-defibrillator Status: Chronic (7) Hyperlipidemia Status: Chronic (8) Seizure disorder Status: Chronic (9) Anemia of chronic disease Status: Chronic (10) ESRD (end stage renal disease) on dialysis Status: Chronic History of Present Illness Date of Admission: 02/18/20 Chief Complaint: SOB The patient is a 59 year old M with pmhx of ESRD, pAfib, dilated CM, systolic CHF, HTN, Nicotine abuse, seizure disorder, GERD, who presented to the ER with c/o SOB. The patient was also in the ER yesterday with SOB and nausea. He had elevated potassium and was given. His central office maintainer (Johanna) was notified and he was discharged and brought to dialysis which he states he completed 3.5 hours. He woke up this morning feeling SOB again. He denies chest pain, cough, fever, chills. He has diarrhea in the ER and is incontinent of stool with diarrhea and abdominal cramping. No nausea or vomiting today. He was found to be hyperkalemic again and was given Kayexalate, bicarb, insulin, calcium gluc. [] Past Medical History Past Medical History (Chronic Problems): Chronic Problems (Last Updated 09/24/19 @ 08:49 by Marci Cornelius) Chronic systolic (congestive) heart failure (Chronic) Essential hypertension (Chronic) Paroxysmal atrial fibrillation (Chronic) Dilated cardiomyopathy (Chronic) Presence of biventricular implantable cardioverter-defibrillator (Chronic) Supraventricular dysrhythmia (Chronic) Acute on chronic congestive heart failure (Chronic) Hyperlipidemia (Chronic) Seizure disorder (Chronic) Anemia of chronic disease (Chronic) ESRD (end stage renal disease) on dialysis (Chronic) Medical History: Medical History (Last Updated 09/24/19 @ 08:49 by Marci Cornelius) Chronic systolic (congestive) heart failure (Chronic) I50.22 Essential hypertension (Chronic) I10 Paroxysmal atrial fibrillation (Chronic) I48.0 Dilated cardiomyopathy (Chronic) I42.0 Dyspnea (Acute) R06.00 Elevated troponin (Acute) R79.89 Presence of biventricular implantable cardioverter-defibrillator (Chronic) Z95.810 Supraventricular dysrhythmia (Chronic) I49.9 Acute on chronic congestive heart failure (Acute) I50.9 Hyperlipidemia (Chronic) E78.5 Seizure disorder (Chronic) G40.909 Anemia of chronic disease (Chronic) D63.8 ESRD (end stage renal disease) on dialysis (Chronic) N18.6, Z99.2 CHF (congestive heart failure) (Inactive) I50.9 Cardiomyopathy (Inactive) I42.9 Allergies Penicillins Allergy (Verified 02/16/20 19:41) Unknown sulfamethoxazole [From Bactrim] Allergy (Verified 02/16/20 19:41) Swelling trimethoprim [From Bactrim] Allergy (Verified 02/16/20 19:41) Swelling Home Medications: Ambulatory Orders Medication Instructions Recorded Calcium Acetate [Phoslo Gel Cap] 1,334 mg PO TIDCM 03/08/14 Loperamide [Imodium] 2 - 4 mg PO Q6H PRN PRN 08/21/16 Allopurinol [Zyloprim] 100 mg PO DAILYCM 02/18/18 Tamsulosin HCl [Flomax] 0.4 mg PO DAILY 02/18/18 Simvastatin 20 mg PO QHS 04/14/18 Melatonin 5 mg PO QHS 11/05/18 Nitroglycerin 0.4 mg SL PRN PRN 11/05/18 DiphenhydrAMINE [Benadryl] 25 mg PO TID PRN PRN 11/26/18 Acetaminophen [Tylenol] 650 mg PO Q8H PRN PRN #30 cap 12/03/18 traMADol [Ultram] 50 mg PO Q8H PRN PRN 12/26/18 lisinopril 2.5 mg tablet 2.5 mg PO DAILY #90 tab 03/03/19 Cinacalcet HCl [Sensipar] 30 mg PO DAILY 05/13/19 Hydroxyzine HCl 75 mg PO DAILY PRN 05/13/19 proMETHazine tablet [Phenergan 25 mg PO Q6H PRN PRN #10 tab 07/30/19 tablet] Omeprazole 1 cap PO DAILY PRN 08/03/19 Doxycycline 100 mg PO BID 08/31/19 Ondansetron HCl [Zofran] 4 mg PO TID PRN #15 tab 09/01/19 carvedilol 12.5 mg tablet 12.5 mg PO BID #180 tab 12/28/19 Ondansetron [Zofran Odt] 4 mg PO Q8H PRN PRN #10 tab 02/16/20 Surgical History: pacemaker implantation, - - prosthetic right eye, Rt upper arm AVF, right adrenal gland removal for unknown reason. Psychiatric History: No pertinent psych hx Lives: Alone Smoking Status: Current every day smoker Tobacco Use: Cigarettes Alcohol: Occasional Drugs: None - *Family History Maternal History Items: Diabetes Paternal History Items: Heart Disease Review of Systems Constitutional: Denies: Chills, Fever, Weight Change HEENT: Denies: Head Aches, Sinus Congestion, Sinus Drainage Cardiovascular: Denies: Chest Pain, Palpitations Respiratory: Reports: Shortness of Breath, Shortness of breath at rest, Shortness of breath upon exertion. Denies: Cough, Sputum production, Wheezing Gastrointestinal: Reports: Diarrhea, - - cramping. Denies: Abdominal Pain, Constipation, Nausea, Vomiting Genitourinary: Denies: Dysuria, Hesitancy, Urgency Musculoskeletal: Denies: Joint Pain, Joint Tenderness Skin: Denies: Lesions, Rash, Wounds Neurological: Denies: Numbness, Tingling, Focal weakness Psychiatric: Denies: Anxiety, Depression, Homicidal Ideations, Suicidal Ideations Hematologic/ Lymphatic: Denies: Easy Bruising, Easy Bleeding VTE Information - Inpt Only VTE Present on Admission: No VTE Mechan Device Prophylaxis: None VTE Pharm Prophylaxis ordered?: Yes Patient Problems: Active and Suspected Problems (Last Updated 09/24/19 @ 08:49 by Marci Cornelius) Hyperkalemia (Acute) - Physical Exam Vitals/I&O's: Vital Signs Temp Pulse Resp BP Pulse Ox 96.2 F L 60 18 117/52 L 97 02/18/20 15:00 02/18/20 15:00 02/18/20 15:00 02/18/20 15:00 02/18/20 15:00 Oxygen Flow Rate (L/min) 3 Oxygen Delivery Method Nasal Cannula Weight: 158 lb 1.143 oz Body Mass Index (BMI) 23.3 Finger Stick Blood Glucose 95 General: Alert, Oriented x3, Cooperative, - - malodorous, incontinent of stool HEENT: Atraumatic, PERRLA, EOMI, Normocephalic Neck: Supple, No JVD, Negative Carotid Bruits Lungs: Clear to auscultation, Normal air movement Cardiovascular: Regular rate, No murmurs Abdomen: Bowel Sounds Present, Soft, Non Tender Extremities: No edema, Capillary Refill Less than 3 Seconds Skin: No rashes, No breakdown Musculoskeletal: No Tenderness to Palpation of Joints or Extremities Neurological: Cranial nerves II-XII grossly intact Psych/Mental Status: Normal Affect, Appropriate, Alert and oriented to time, place, person, mood and affect Microbiology Past 72 Hours 02/18/20 14:10 Mucosa - Nose SARS-CoV-2 Antigen (Rapid) - Final Laboratory Results 02/18/20 15:20: Sodium 131 L, Potassium 6.8 H*, Chloride 90 L, Carbon Dioxide 16.0 L, Anion Gap 25 H, BUN 65 H, Creatinine 14.00 H*, Estim Creat Clear Calc 5.61, Est GFR (MDRD) Af Amer 5 L, Est GFR (MDRD) Non-Af 4 L, BUN/Creatinine Ratio 4.6 L, Glucose 97, Calcium 9.4, Troponin I 0.039 Assessment/Plan All Active Problems (Last Updated 09/24/19 @ 08:49 by Marci Cornelius) Hyperkalemia (Acute) Generalized weakness (Acute) Dyspnea (Acute) 1. Hyperkalemia with metabolic acidosis in the setting of ESRD - recurrent, however there is moderate hemolysis reported. He had dialysis yesterday. Consult Dr. Spencer. Pt received Kayex, Calcium gluc, Bicarb, insulin in the ER. Recheck BMP tonight, in AM. EKG with prominent T waves. No CP. Trop neg. CXR negative. BNP normal yesterday. Covid negative. 2. pAfib - currently NSR. continue coreg. not on anticoagulation. Has pacemaker. 3. Dilated CM, systolic CHF - no exacerbation - AICD in place. 4. Nicotine abuse - continues to smoke. patch if desired 5. Hx seizure disorder - I do not see any anti epileptics in his home meds. 6. GERD - PPI DVT ppx: heparin This patient was seen by Liam Constantino PA-C under the supervision of Dr. Lugo <Jopperi,Edmar - Last Filed: 02/18/20 16:52> Problem List (1) Acute on chronic congestive heart failure Status: Chronic Qualifiers: Heart failure type: combined systolic and diastolic Qualified Code(s): I50.43 - Acute on chronic combined systolic (congestive) and diastolic (congestive) heart failure (2) Dyspnea Status: Acute Qualifiers: Dyspnea type: unspecified Qualified Code(s): R06.00 - Dyspnea, unspecified (3) Generalized weakness Status: Acute (4) Hyperkalemia Status: Acute (5) Anemia of chronic disease Status: Chronic (6) Chronic systolic (congestive) heart failure Status: Chronic (7) Dilated cardiomyopathy Status: Chronic (8) ESRD (end stage renal disease) on dialysis Status: Chronic (9) Essential hypertension Status: Chronic (10) Hyperlipidemia Status: Chronic Qualifiers: (11) Paroxysmal atrial fibrillation Status: Chronic (12) Presence of biventricular implantable cardioverter-defibrillator Status: Chronic (13) Seizure disorder Status: Chronic (14) Supraventricular dysrhythmia Status: Chronic History of Present Illness The patient is a 59 year old M presents with shortness of breath. Patient was seen here yesterday of shortness of breath and was found to be hyperkalemic with potassium 6.6. Patient was discharged to the dialysis which she had. Patient continues to be short of breath and presented again to the emergency room where he was in metabolic acidosis with an anion gap of 25, potassium 6.8 though this was hemolyzed. Patient received a battery of medications to reduce his potassium, including: Albuterol, calcium gluconate, dextrose and insulin, sodium bicarb and Kayexalate. Patient stated he has been having diarrhea since yesterday after receiving Kayexalate. Patient was checked for COVID-19 on the and both were negative. [] Past Medical History Medical History: Medical History (Last Reviewed 02/18/20 @ 16:[address] Edmar Lugo DO) Chronic systolic (congestive) heart failure (Chronic) I50.22 Essential hypertension (Chronic) I10 Paroxysmal atrial fibrillation (Chronic) I48.0 Dilated cardiomyopathy (Chronic) I42.0 Dyspnea (Acute) R06.00 Elevated troponin (Acute) R79.89 Presence of biventricular implantable cardioverter-defibrillator (Chronic) Z95.810 Supraventricular dysrhythmia (Chronic) I49.9 Acute on chronic congestive heart failure (Acute) I50.9 Hyperlipidemia (Chronic) E78.5 Seizure disorder (Chronic) G40.909 Anemia of chronic disease (Chronic) D63.8 ESRD (end stage renal disease) on dialysis (Chronic) N18.6, Z99.2 CHF (congestive heart failure) (Inactive) I50.9 Cardiomyopathy (Inactive) I42.9 Allergies Penicillins Allergy (Verified 02/16/20 19:41) Unknown sulfamethoxazole [From Bactrim] Allergy (Verified 02/16/20 19:41) Swelling trimethoprim [From Bactrim] Allergy (Verified 02/16/20 19:41) Swelling Surgical History: pacemaker implantation, - Psychiatric History: No pertinent psych hx Lives: Alone Smoking Status: Current every day smoker Tobacco Use: Cigarettes Alcohol: Occasional Drugs: None - *Family History Maternal History Items: Diabetes Paternal History Items: Heart Disease Review of Systems Constitutional: Denies: Chills, Fever, Weight Change HEENT: Denies: Head Aches, Sinus Congestion, Sinus Drainage Cardiovascular: Denies: Chest Pain, Palpitations Respiratory: Reports: Shortness of Breath. Denies: Cough, Sputum production, Wheezing Gastrointestinal: Reports: Diarrhea, -. Denies: Abdominal Pain, Constipation, Nausea, Vomiting Genitourinary: Denies: Dysuria, Hesitancy, Urgency Musculoskeletal: Denies: Joint Pain, Joint Tenderness Skin: Denies: Lesions, Rash, Wounds Neurological: Denies: Focal weakness, Numbness, Tingling Psychiatric: Denies: Anxiety, Depression, Homicidal Ideations, Suicidal Ideations Hematologic/ Lymphatic: Denies: Easy Bruising, Easy Bleeding VTE Information - Inpt Only VTE Present on Admission: No VTE Mechan Device Prophylaxis: None VTE Pharm Prophylaxis ordered?: Yes - Physical Exam Vitals/I&O's: Vital Signs Temp Pulse Resp BP Pulse Ox 35.7 C L 60 18 106/59 L 97 02/18/20 15:01 02/18/20 15:01 02/18/20 15:01 02/18/20 15:01 02/18/20 15:01 Oxygen Flow Rate (L/min) 3 Oxygen Delivery Method Nasal Cannula Weight: 71.7 kg Body Mass Index (BMI) 23.3 Finger Stick Blood Glucose 95 General: Alert, Cooperative, - - malodorous, incontinent of stool. Cachectic. Gaunt features. HEENT: Atraumatic, Normocephalic Lungs: Clear to auscultation, Normal air movement Cardiovascular: Regular rate, No murmurs Abdomen: Bowel Sounds Present, Soft, Non Tender Extremities: No edema, No Calf Tenderness Skin: No rashes, No breakdown Psych/Mental Status: Normal Affect, Appropriate, Alert and oriented to time, place, person, mood and affect Microbiology Past 72 Hours 02/18/20 14:10 Mucosa - Nose SARS-CoV-2 Antigen (Rapid) - Final Laboratory Results 02/18/20 15:20: Sodium 131 L, Potassium 6.8 H*, Chloride 90 L, Carbon Dioxide 16.0 L, Anion Gap 25 H, BUN 65 H, Creatinine 14.00 H*, Estim Creat Clear Calc 5.61, Est GFR (MDRD) Af Amer 5 L, Est GFR (MDRD) Non-Af 4 L, BUN/Creatinine Ratio 4.6 L, Glucose 97, Calcium 9.4, Troponin I 0.039 Assessment/Plan Patient seen and examined independently. Data reviewed. I agree with the above note by the physician judicial administrative assistant. 1. Acute hyperkalemia: Ongoing despite dialysis yesterday. Patient received dialysis again today. Patient received a battery of medications which will help with his hyperkalemia. This may be brought on by metabolic acidosis as well. Patient did have peaked T waves due to the hyperkalemia. 2. Metabolic acidosis: Secondary to end-stage renal disease. Dialysis and patient did receive sodium bicarbonate. Monitor. 3. Dyspnea: This is compensatory mechanism for the metabolic acidosis. Patient has no distress and is chest x-ray is normal at this time. Covid was negative x2 on the eighth as well as today. Inpatient E&M: 34320 Init Hosp L3
[2020-02-18] MEDS: fentaNYL 100 MCG/2 ML Ampul 50 MCG IV (16:35)
[2020-02-18] MEDS: Sodium Bicarbonate 8.4% 50 ML Syringe 50 MEQ IV (16:40)
[2020-02-18] MEDS: Sodium Polystyrene Sulfonate 15 GM/60 ML UDC 30 GM PO (17:13)
--- NOTE | 2020-02-18 17:15 | ED.RN ---
MD aware of VS and related to dialysis.
[2020-02-18 19:40] LABS: Potassium 7.1 mmol/L (3.5-5.1)
[2020-02-18 20:31] LABS: Bedside Glucose 141 mg/dL (70-110)
--- NOTE | 2020-02-18 21:14 | EKG12_ITS ---
Test Reason : DYSRHYTHMIA Blood Pressure : / mmHG Vent. Rate : 079 BPM Atrial Rate : 079 BPM P-R Int : 150 ms QRS Dur : 144 ms QT Int : 488 ms P-R-T Axes : 050 -25 106 degrees QTc Int : 559 ms Suspect unspecified pacemaker failure Atrial-sensed ventricular-paced rhythm Abnormal ECG Confirmed by JOSEPH DINH, JENNIFER ([id number]), sports editor BHAVANI JEREZ ([id number]) on 02/19/2020 8:52:00 A M Referred By: DENNIS Confirmed By:ANGEL RUIZ MD
--- NOTE | 2020-02-18 21:20 | EKG12_ITS ---
Test Reason : TACHY Blood Pressure : / mmHG Vent. Rate : 136 BPM Atrial Rate : 129 BPM P-R Int : 000 ms QRS Dur : 128 ms QT Int : 400 ms P-R-T Axes : 000 059 239 degrees QTc Int : 602 ms Ventricular-paced rhythm Abnormal ECG When compared with ECG of 18-FEB-2020 14:57, MANUAL COMPARISON REQUIRED, DATA IS UNCONFIRMED Confirmed by JOSEPH DINH, JENNIFER ([id number]), news assignment editor LEVI ROSE ([id number]) on 03/03/2020 12:30:16 PM Referred By: DR WRIGHT Confirmed By:ANGEL RUIZ MD
[2020-02-18] MEDS: Heparin Injection (Vial) 5,000 UNIT/ML VIAL 5000 UNIT SC (22:11)
[2020-02-18] MEDS: Atorvastatin Calcium 10 MG Tablet PO (22:12)
[2020-02-18] MEDS: MELATONIN 10 MG TABLET 5 MG PO (22:12)
--- NOTE | 2020-02-18 22:24 | DIALYSIS ---
HD x 2 hours complete. Ran on 1k bath. Positive 700ml of fluid post tx. Used Right arm access. [place] removed post tx and pressure applied to site x 10 minutes. Hemostasis achieved. Fresh gauze and tape applied. Positive thrill/bruit noted. See tx sheet for more details. Report given to ENRIQUE Ghotra.
[2020-02-18] MEDS: Acetaminophen 325 MG Tablet 650 MG PO (23:52)
[2020-02-18] MEDS: Metoprolol Tartrate 5 MG/5 ML Vial IV (23:52)
[2020-02-18] MEDS: 0.9% Saline Lock 10 ML Syringe IV (23:53)
[2020-02-19] VITALS (26 sets, daily range): BP systolic 74–121; BP diastolic 35–82; PULSE 60–140; RESP 18–44; TEMP 35.5–36.3; O2SAT 94–100
[2020-02-19 00:30] LABS: Absolute Lymphocyte Count 1.36 X10^3/uL (0.83-4.51); Absolute Neutrophil Count 10.4 X10^3/uL (2.0-7.7); Basophil# 0.03 X10^3/uL; Basophil% 0.2 % (0-1); Eosinophil# 0.25 X10^3/uL; Eosinophils% 1.9 % (0-5); Hematocrit 48.2 % (40-54); Hemoglobin 15.5 g/dL (13.0-16.5); Lymphocyte # 1.36 X10^3/ul (4.0); Lymphocyte % 10.4 % (19-41); Mean Corp Hgb Conc 32.2 g/dL (32-36); Mean Corpuscular Volume 93.2 fL (80-94); Mean Platelet Vol. 10.6 fl (6.2-12.0); Monocyte# 0.95 X10^3/uL; Monocyte% 7.3 % (0-10); NRBC Flagged by Analyzer 0.9 % (0-5); Neutrophil # 10.35 X10^3/uL (2.7-7.7); Neutrophil % 79.6 % (47-70); Platelet Count 122 K/mm3 (150-450); RBC Distribution Width CV 13.2 % (11.6-14.6); Red Blood Count 5.17 M/mm3 (4.6-6.2)
[2020-02-19 00:51] LABS: Anion Gap 24 (5-15); BUN 44 mg/dL (7-18); BUN/Creat Ratio 3.9 RATIO (10-20); Calcium,Total 9.6 mg/dL (8.5-10.1); Chloride 92 mmol/L (98-107); EST Glomerular Filtration Rate 5 mL/min (>60); Est Glom Filt Rate - Afr Amer 6 mL/min (>60); Estimated Creatinine Clearance 6.73 ml/min; Glucose 127 mg/dL (74-106); Potassium 4.1 mmol/L (3.5-5.1); Sodium Level 135 mmol/L (136-145)
[2020-02-19 03:17] LABS: Magnesium 2.4 mg/dL (1.6-2.6); Phosphorus 12.3 mg/dL (2.5-4.9); Thyroid Stim Hormone (TSH) 1.64 uIU/mL (0.358-3.74)
[2020-02-19] MEDS: Loperamide 2 MG Capsule PO (05:04)
[2020-02-19 06:44] LABS: Anion Gap 21 (5-15); BUN 49 mg/dL (7-18); BUN/Creat Ratio 4.2 RATIO (10-20); Chloride 85 mmol/L (98-107); EST Glomerular Filtration Rate 5 mL/min (>60); Est Glom Filt Rate - Afr Amer 6 mL/min (>60); Estimated Creatinine Clearance 6.55 ml/min; Glucose 99 mg/dL (74-106); Potassium 4.2 mmol/L (3.5-5.1); Sodium Level 132 mmol/L (136-145)
--- NOTE | 2020-02-19 08:08 | CON.PCM_ITS ---
Problem List (1) ESRD (end stage renal disease) on dialysis Status: Chronic Consultation - Renal 02/19/20 PCP/ Referring MD: Requesting physician: [] Primary care physician: Dr. Aman Cabral MD Reason for Consultation:: ESRD - History of Present Illness History of Present Illness: The patient is a 59 year old M who presented to the hospital with complaints of shortness of breath, nausea, weakness. He has known history of ESRD on hemodialysis Saturday, Saturday, Saturday schedule. Last dialysis was Saturday. He states he did finish complete treatment on Saturday. Came in with above complaints and was found to have severe hyperkalemia and dyspnea. Had to be dialyzed emergently last night. Currently denies any complaints - Allergies Allergies: Allergies Penicillins Allergy (Verified 02/16/20 19:41) Unknown sulfamethoxazole [From Bactrim] Allergy (Verified 02/16/20 19:41) Swelling trimethoprim [From Bactrim] Allergy (Verified 02/16/20 19:41) Swelling - Current Medications Current Medications: Current Medications Acetaminophen (Acetaminophen 325 Mg Tablet) 650 mg PO Q8H PRN PRN PRN Reason: Pain Score 1-10 Last Admin: 02/18/20 23:52 Dose: 650 mg Documented by: Allopurinol ([facility] 100 Mg Tablet) [facility] Atorvastatin Calcium (Atorvastatin Calcium 10 Mg Tablet) 10 mg PO QHS [facility] Last Admin: 02/18/20 22:12 Dose: 10 mg Documented by: Calcium Acetate (Calcium Acetate 667 Mg Capsule) 1,334 mg PO TIDCM [facility] Last Admin: 02/18/20 22:11 Dose: Not Given Documented by: Carvedilol (Carvedilol 12.5 Mg Tablet) 12.5 mg PO BID [facility] Last Admin: 02/18/20 22:14 Dose: Not Given Documented by: Cinacalcet (Cinacalcet Hcl 30 Mg Tablet) 30 mg PO DAILY [facility] Heparin Sodium (Porcine) (Heparin Injection (Vial) 5,000 Unit/Ml Vial) 5,000 unit SC Q12 [facility] Last Admin: 02/18/20 22:11 Dose: 5,000 unit Documented by: Loperamide HCl (Loperamide 2 Mg Capsule) 2 mg PO Q6H PRN PRN PRN Reason: Diarrhea Last Admin: 02/19/20 05:04 Dose: 2 mg Documented by: Melatonin (Melatonin 10 Mg Tablet) 5 mg PO QHS [facility] Last Admin: 02/18/20 22:12 Dose: 5 mg Documented by: Nitroglycerin (Nitroglycerin (Inpatient Use) 0.4 Mg Tab.Subl) 0.4 mg SUBLINGUAL Q5M PRN PRN Reason: Pain Score 1-10 Ondansetron HCl (Ondansetron Odt 4 Mg Tablet) 4 mg PO Q8H PRN PRN PRN Reason: NAUSEA Pantoprazole Sodium (Pantoprazole Sodium 40 Mg Tablet) 1 mg PO DAILY PRN PRN Reason: HEARTBURN Promethazine HCl (Promethazine 25 Mg Tablet) 25 mg PO Q6H PRN PRN PRN Reason: NAUSEA Sodium Chloride (0.9% Saline Lock 10 Ml Syringe) 10 - 40 ml IV UD PRN PRN Reason: SALINE FLUSH Last Admin: 02/18/20 23:53 Dose: 10 ml Documented by: Tamsulosin HCl (Tamsulosin Hcl 0.4 Mg Capsule) 0.4 mg PO DAILY@0830 [facility] - Past Medical History Past Medical History (Chronic Problems): Chronic Problems (Last Reviewed 02/18/20 @ 16:[address] Edmar Lugo, DO) Chronic systolic (congestive) heart failure (Chronic) Essential hypertension (Chronic) Paroxysmal atrial fibrillation (Chronic) Dilated cardiomyopathy (Chronic) Presence of biventricular implantable cardioverter-defibrillator (Chronic) Supraventricular dysrhythmia (Chronic) Acute on chronic congestive heart failure (Chronic) Hyperlipidemia (Chronic) Seizure disorder (Chronic) Anemia of chronic disease (Chronic) ESRD (end stage renal disease) on dialysis (Chronic) - Past Surgical History Surgical History: pacemaker implantation, - - Social History Smoking Status: Light Smoker (<10/day) Alcohol: Occasional Drugs: None - Family History Maternal History Items: Diabetes Paternal History Items: Heart Disease Review of Systems Constitutional: Denies: Chills, Fever, Weight Change HEENT: Denies: Head Aches, Sinus Congestion, Sinus Drainage Cardiovascular: Denies: Chest Pain, Palpitations Respiratory: Denies: Cough, Shortness of breath at rest, Sputum production Gastrointestinal: Denies: Abdominal Pain, Nausea, Vomiting Genitourinary: Denies: Dysuria Musculoskeletal: Denies: Joint Pain, Joint Tenderness Skin: Denies: Rash, Wounds Neurological: Denies: Numbness, Tingling, Focal weakness Psychiatric: Denies: Anxiety, Depression, Homicidal Ideations, Suicidal Ideations Hematologic/ Lymphatic: Denies: Easy Bruising, Easy Bleeding Patient Problems: Active and Suspected Problems (Last Reviewed 02/18/20 @ 16:[address] Edmar Lugo, DO) Hyperkalemia (Acute) Generalized weakness (Acute) Dyspnea (Acute) - Physical Exam Vitals/I&O's: Vital Signs Temp Pulse Resp BP Pulse Ox 96 F L 101 H 28 H 121/80 H 100 02/19/20 08:00 02/19/20 08:00 02/19/20 08:00 02/19/20 08:00 02/19/20 08:00 Oxygen Flow Rate (L/min) 2.5 Oxygen Delivery Method Nasal Cannula Weight: 69.536 kg Body Mass Index (BMI) 22.6 Finger Stick Blood Glucose 95 Intake and Output for Last 24 Hours 02/17/20 02/18/20 02/19/20 23:59 23:59 23:59 Intake Total 1000.05 / 1000.05 Balance 1000.05 / 1000.05 General: Alert, Oriented x3, Cooperative HEENT: Atraumatic, PERRLA, EOMI, Normocephalic Neck: Supple, No JVD, Negative Carotid Bruits Lungs: Clear to auscultation, Normal air movement Cardiovascular: Regular rate, No murmurs Abdomen: Bowel Sounds Present, Soft, Non Tender Extremities: No edema, Capillary Refill Less than 3 Seconds Skin: No rashes, No breakdown Musculoskeletal: No Tenderness to Palpation of Joints or Extremities Neurological: Cranial nerves II-XII grossly intact Psych/Mental Status: Normal Affect, Appropriate Microbiology Past 72 Hours 02/18/20 14:10 Mucosa - Nose SARS-CoV-2 Antigen (Rapid) - Final Laboratory Results 02/18/20 00:10: WBC 13.0 H, RBC 5.17, Hgb 15.5, Hct 48.2, MCV 93.2, MCH 30.0, MCHC 32.2, RDW Std Deviation 45.0 H, RDW Coeff of Dharmesh 13.2, Plt Count 122 L, MPV 10.6, Immature Gran % (Auto) 0.600, Neut % (Auto) 79.6 H, Lymph % (Auto) 10.4 L, Giles % (Auto) 7.3, Eos % (Auto) 1.9, Baso % (Auto) 0.2, Absolute Neuts (auto) 10.4 H, Absolute Lymphs (auto) 1.36, Nucleated RBC % 0.9 02/18/20 00:10: Sodium 135 L, Potassium 4.1, Chloride 92 L, Carbon Dioxide 19.0 L, Anion Gap 24 H, BUN 44 H, Creatinine 11.30 H*, Estim Creat Clear Calc 6.73, Est GFR (MDRD) Af Amer 6 L, Est GFR (MDRD) Non-Af 5 L, BUN/Creatinine Ratio 3.9 L, Glucose 127 H, Calcium 9.6 02/18/20 15:20: Sodium 131 L, Potassium 6.8 H*, Chloride 90 L, Carbon Dioxide 16.0 L, Anion Gap 25 H, BUN 65 H, Creatinine 14.00 H*, Estim Creat Clear Calc 5. 61, Est GFR (MDRD) Af Amer 5 L, Est GFR (MDRD) Non-Af 4 L, BUN/Creatinine Ratio 4.6 L, Glucose 97, Calcium 9.4, Troponin I 0.039 02/18/20 15:20: Potassium 7.1 H* 02/18/20 20:28: POC Glucose 141 H 02/19/20 00:10: B-Natriuretic Peptide 21.0 02/19/20 00:10: Phosphorus 12.3 H*, Magnesium 2.4, TSH 1.64 02/19/20 05:14: Sodium 132 L, Potassium 4.2, Chloride 85 L, Carbon Dioxide 26.0, Anion Gap 21 H, BUN 49 H, Creatinine 11.60 H*, Estim Creat Clear Calc 6.55, Est GFR (MDRD) Af Amer 6 L, Est GFR (MDRD) Non-Af 5 L, BUN/Creatinine Ratio 4.2 L, Glucose 99, Calcium 9.0 Current Medications Acetaminophen (Acetaminophen 325 Mg Tablet) 650 mg PO Q8H PRN PRN PRN Reason: Pain Score 1-10 Last Admin: 02/18/20 23:52 Dose: 650 mg Documented by: Allopurinol ([facility] 100 Mg Tablet) [facility] Atorvastatin Calcium (Atorvastatin Calcium 10 Mg Tablet) 10 mg PO QHS [facility] Last Admin: 02/18/20 22:12 Dose: 10 mg Documented by: Calcium Acetate (Calcium Acetate 667 Mg Capsule) 1,334 mg PO TIDCM [facility] Last Admin: 02/18/20 22:11 Dose: Not Given Documented by: Carvedilol (Carvedilol 12.5 Mg Tablet) 12.5 mg PO BID [facility] Last Admin: 02/18/20 22:14 Dose: Not Given Documented by: Cinacalcet (Cinacalcet Hcl 30 Mg Tablet) 30 mg PO DAILY [facility] Heparin Sodium (Porcine) (Heparin Injection (Vial) 5,000 Unit/Ml Vial) 5,000 unit SC Q12 [facility] Last Admin: 02/18/20 22:11 Dose: 5,000 unit Documented by: Loperamide HCl (Loperamide 2 Mg Capsule) 2 mg PO Q6H PRN PRN PRN Reason: Diarrhea Last Admin: 02/19/20 05:04 Dose: 2 mg Documented by: Melatonin (Melatonin 10 Mg Tablet) 5 mg PO QHS [facility] Last Admin: 02/18/20 22:12 Dose: 5 mg Documented by: Nitroglycerin (Nitroglycerin (Inpatient Use) 0.4 Mg Tab.Subl) 0.4 mg SUBLINGUAL Q5M PRN PRN Reason: Pain Score 1-10 Ondansetron HCl (Ondansetron Odt 4 Mg Tablet) 4 mg PO Q8H PRN PRN PRN Reason: NAUSEA Pantoprazole Sodium (Pantoprazole Sodium 40 Mg Tablet) 1 mg PO DAILY PRN PRN Reason: HEARTBURN Promethazine HCl (Promethazine 25 Mg Tablet) 25 mg PO Q6H PRN PRN PRN Reason: NAUSEA Sodium Chloride (0.9% Saline Lock 10 Ml Syringe) 10 - 40 ml IV UD PRN PRN Reason: SALINE FLUSH Last Admin: 02/18/20 23:53 Dose: 10 ml Documented by: Tamsulosin HCl (Tamsulosin Hcl 0.4 Mg Capsule) 0.4 mg PO DAILY@0830 [facility] Assessment/Plan All Active Problems (Last Reviewed 02/18/20 @ 16:[address] Edmar Lugo, DO) Hyperkalemia (Acute) Generalized weakness (Acute) Dyspnea (Acute) ESRD Hyperkalemia Dyspnea Received a short treatment of dialysis yesterday We will plan for regular dialysis session today Potassium is better today Access is right arm AV graft
[2020-02-19] MEDS: Heparin Injection (Vial) 5,000 UNIT/ML VIAL 5000 UNIT SC (08:09)
[2020-02-19] MEDS: Calcium Acetate 667 MG Capsule 1334 MG PO ×3 (08:09→16:54)
[2020-02-19] MEDS: Cinacalcet HCl 30 MG Tablet PO (08:09)
[2020-02-19] MEDS: Allopurinol 100 MG Tablet PO (08:09)
[2020-02-19] MEDS: Tamsulosin HCl 0.4 MG Capsule PO (08:09)
--- NOTE | 2020-02-19 09:48 | PCM.PN.HOSP ---
Patient Problems: Active and Suspected Problems (Last Reviewed 02/18/20 @ 16:[address] Edmar Lugo, DO) Hyperkalemia (Acute) Generalized weakness (Acute) Dyspnea (Acute) Reason for Visit: hyperkalemia Subjective: Did require addnl kayexalate. Diarrhea and abdominal pain afterwards. States that he does not follow a renal diet and eats whatever he wants. Vitals/I&O's: Vital Signs Temp Pulse Resp BP Pulse Ox 35.5 C L 101 H 28 H 121/80 H 100 02/19/20 08:00 02/19/20 08:00 02/19/20 08:00 02/19/20 08:00 02/19/20 08:00 Oxygen Flow Rate (L/min) 2.5 Oxygen Delivery Method Nasal Cannula Weight: 69.536 kg Body Mass Index (BMI) 22.6 Finger Stick Blood Glucose 95 Intake and Output for Last 24 Hours 02/17/20 02/18/20 02/19/20 23:59 23:59 23:59 Intake Total 1000.05 / 1000.05 Balance 1000.05 / 1000.05 General: Alert, No apparent distress HEENT: Atraumatic, Normocephalic Oral: Moist Mucosa, No Gingival or Mucosal Lesions/ Ulcerations Neck: No Nodes, Thyroid Normal Size and Texture Lungs: Clear to auscultation, Normal air movement, No rhonchi, No wheeze, No rales Cardiovascular: Normal S1, Normal S2, No murmurs, Tachycardic Abdomen: Bowel Sounds Present, Soft, Non-Distended, No Hepato-splenomegaly, Tender Extremities: No edema, No Calf Tenderness Psych/Mental Status: Normal Affect, Appropriate Microbiology Past 72 Hours 02/18/20 14:10 Mucosa - Nose SARS-CoV-2 Antigen (Rapid) - Final Laboratory Results 02/18/20 00:10: WBC 13.0 H, RBC 5.17, Hgb 15.5, Hct 48.2, MCV 93.2, MCH 30.0, MCHC 32.2, RDW Std Deviation 45.0 H, RDW Coeff of Dharmesh 13.2, Plt Count 122 L, MPV 10.6, Immature Gran % (Auto) 0.600, Neut % (Auto) 79.6 H, Lymph % (Auto) 10.4 L, Barren % (Auto) 7.3, Eos % (Auto) 1.9, Baso % (Auto) 0.2, Absolute Neuts (auto) 10.4 H, Absolute Lymphs (auto) 1.36, Nucleated RBC % 0.9 02/18/20 00:10: Sodium 135 L, Potassium 4.1, Chloride 92 L, Carbon Dioxide 19.0 L, Anion Gap 24 H, BUN 44 H, Creatinine 11.30 H*, Estim Creat Clear Calc 6.73, Est GFR (MDRD) Af Amer 6 L, Est GFR (MDRD) Non-Af 5 L, BUN/Creatinine Ratio 3.9 L, Glucose 127 H, Calcium 9.6 02/18/20 15:20: Sodium 131 L, Potassium 6.8 H*, Chloride 90 L, Carbon Dioxide 16.0 L, Anion Gap 25 H, BUN 65 H, Creatinine 14.00 H*, Estim Creat Clear Calc 5.61, Est GFR (MDRD) Af Amer 5 L, Est GFR (MDRD) Non-Af 4 L, BUN/Creatinine Ratio 4.6 L, Glucose 97, Calcium 9.4, Troponin I 0.039 02/18/20 15:20: Potassium 7.1 H* 02/18/20 20:28: POC Glucose 141 H 02/19/20 00:10: B-Natriuretic Peptide 21.0 02/19/20 00:10: Phosphorus 12.3 H*, Magnesium 2.4, TSH 1.64 02/19/20 05:14: Sodium 132 L, Potassium 4.2, Chloride 85 L, Carbon Dioxide 26.0, Anion Gap 21 H, BUN 49 H, Creatinine 11.60 H*, Estim Creat Clear Calc 6.55, Est GFR (MDRD) Af Amer 6 L, Est GFR (MDRD) Non-Af 5 L, BUN/Creatinine Ratio 4.2 L, Glucose 99, Calcium 9.0 Current Medications Acetaminophen (Acetaminophen 325 Mg Tablet) 650 mg PO Q8H PRN PRN PRN Reason: Pain Score 1-10 Last Admin: 02/18/20 23:52 Dose: 650 mg Documented by: Allopurinol (Allopurinol 100 Mg Tablet) 100 mg PO DAILYCM [facility] Last Admin: 02/19/20 08:09 Dose: 100 mg Documented by: Atorvastatin Calcium (Atorvastatin Calcium 10 Mg Tablet) 10 mg PO QHS [facility] Last Admin: 02/18/20 22:12 Dose: 10 mg Documented by: Calcium Acetate (Calcium Acetate 667 Mg Capsule) 1,334 mg PO TIDCM [facility] Last Admin: 02/19/20 08:09 Dose: 1,334 mg Documented by: Carvedilol (Carvedilol 12.5 Mg Tablet) 12.5 mg PO BID [facility] Last Admin: 02/18/20 22:14 Dose: Not Given Documented by: Cinacalcet (Cinacalcet Hcl 30 Mg Tablet) 30 mg PO DAILY [facility] Last Admin: 02/19/20 08:09 Dose: 30 mg Documented by: Heparin Sodium (Porcine) (Heparin Injection (Vial) 5,000 Unit/Ml Vial) 5,000 unit SC Q12 [facility] Last Admin: 02/19/20 08:09 Dose: 5,000 unit Documented by: Loperamide HCl (Loperamide 2 Mg Capsule) 2 mg PO Q6H PRN PRN PRN Reason: Diarrhea Last Admin: 02/19/20 05:04 Dose: 2 mg Documented by: Melatonin (Melatonin 10 Mg Tablet) 5 mg PO QHS [facility] Last Admin: 02/18/20 22:12 Dose: 5 mg Documented by: Nitroglycerin (Nitroglycerin (Inpatient Use) 0.4 Mg Tab.Subl) 0.4 mg SUBLINGUAL Q5M PRN PRN Reason: Pain Score 1-10 Ondansetron HCl (Ondansetron Odt 4 Mg Tablet) 4 mg PO Q8H PRN PRN PRN Reason: NAUSEA Pantoprazole Sodium (Pantoprazole Sodium 40 Mg Tablet) 1 mg PO DAILY PRN PRN Reason: HEARTBURN Promethazine HCl (Promethazine 25 Mg Tablet) 25 mg PO Q6H PRN PRN PRN Reason: NAUSEA Sodium Chloride (0.9% Saline Lock 10 Ml Syringe) 10 - 40 ml IV UD PRN PRN Reason: SALINE FLUSH Last Admin: 02/18/20 23:53 Dose: 10 ml Documented by: Tamsulosin HCl (Tamsulosin Hcl 0.4 Mg Capsule) 0.4 mg PO DAILY@0830 [facility] Last Admin: 02/19/20 08:09 Dose: 0.4 mg Documented by: STROKE Vital Signs/Narrative: Vital Signs Temp Pulse Resp BP Pulse Ox 02/19/20 08:00 35.5 C L 101 H 28 H 121/80 H 100 02/19/20 07:00 36.3 C L 80 29 H 99/71 98 02/19/20 06:00 36.3 C L 105 H 30 H 82/61 L 98 Medical Necessity - Tobacco Use Smoking Status: Light Smoker (<10/day) Tobacco Use: Cigarettes Assessment/Plan All Active Problems (Last Reviewed 02/18/20 @ 16:[address] Edmar Lugo, DO) Hyperkalemia (Acute) Generalized weakness (Acute) Dyspnea (Acute) 1. Acute hyperkalemia: Resolved Likely due to dietary non complaince. Continue HD per nephrology 2. Tachycardia paced and persistent consult cardiology for recommendations. 3. Metabolic acidosis: Improving Secondary to end-stage renal disease. 4. Hyperphosphatemia likely 2/2 secondary hyperparathyroidism restrict phosphorous intake to 900 mg/day continue calcium acetate (phosphorous binder) 5. Dyspnea: Improved This is compensatory mechanism (respiratory alkalosis) for the metabolic acidosis. Patient has no distress and is chest x-ray is unremarkable at this time. Covid was negative x2 on the eighth as well as 10th. 6. VTE prophylaxis: SQ heparin Inpatient E&M: 92881 Subs Hosp L2
[2020-02-19] MEDS: Carvedilol 12.5 MG Tablet PO (10:13)
--- NOTE | 2020-02-19 13:11 | DIALYSIS ---
HD x 3.5 hours complete. Ran on 2k bath. Positive 200ml post tx. Used right arm access. [place] removed post tx and pressure applied x 10 minutes. Hemostasis achieved. Fresh gauze was placed. Positive thrill/bruit noted. Report was given to ENRIQUE Ghotra.
--- NOTE | 2020-02-19 13:49 | CON.PCM_ITS ---
Problem List (1) Hyperkalemia Status: Acute (2) Generalized weakness Status: Acute (3) Chronic systolic (congestive) heart failure Status: Chronic (4) Essential hypertension Status: Chronic (5) Paroxysmal atrial fibrillation Status: Chronic (6) Dyspnea Status: Acute Qualifiers: Dyspnea type: unspecified Qualified Code(s): R06.00 - Dyspnea, unspecified (7) Presence of biventricular implantable cardioverter-defibrillator Status: Chronic Reason for Consult Date of Consultation: 02/19/20 History of Present Illness: The patient is a 59 year old M [] This patient presented with generalized weakness and shortness of breath. Noted to have hyperkalemia and given Kayexalate and also has hemodialysis. Initial serum potassium was around 7.1 improved to 4.2. I saw this patient today at bedside along with the nursing staff Has extensive cardiac history with history of severe LV systolic dysfunction with acute on chronic systolic heart failure Also had biventricular pacer/ICD. He is stable clinically he does not have any active chest pain shortness of breath is improving following the hemodialysis. Also you have been tested twice for Covid which is negative. I reviewed the current monitor as well as his ICD interrogation from cardiac standpoint is stable clinically. He can follow-up as outpatient and medical treatment with his primary c ardiologist Details current beta-clement dosage carvedilol 12.5 mg twice a day with recommend to reduce the dose as tolerated by his blood pressure To keep systolic blood pressure above 100 mmHg. Past Medical History Allergies/Adverse Reactions: Allergies Penicillins Allergy (Verified 02/16/20 19:41) Unknown sulfamethoxazole [From Bactrim] Allergy (Verified 02/16/20 19:41) Swelling trimethoprim [From Bactrim] Allergy (Verified 02/16/20 19:41) Swelling Home Medications: Ambulatory Orders Medication Instructions Recorded Allopurinol [Zyloprim] 100 mg PO DAILYCM 02/18/18 Tamsulosin HCl [Flomax] 0.4 mg PO DAILY 02/18/18 Hydroxyzine HCl 25 mg PO Q8H PRN 05/13/19 Ondansetron [Zofran Odt] 4 mg PO Q8H PRN PRN #10 tab 02/16/20 Carvedilol 12.5 mg PO BID 02/18/20 Past Medical History (Chronic Problems): Chronic Problems (Last Reviewed 02/18/20 @ 16:[address] Edmar Lguo, DO) Chronic systolic (congestive) heart failure (Chronic) Essential hypertension (Chronic) Paroxysmal atrial fibrillation (Chronic) Dilated cardiomyopathy (Chronic) Presence of biventricular implantable cardioverter-defibrillator (Chronic) Supraventricular dysrhythmia (Chronic) Acute on chronic congestive heart failure (Chronic) Hyperlipidemia (Chronic) Seizure disorder (Chronic) Anemia of chronic disease (Chronic) ESRD (end stage renal disease) on dialysis (Chronic) Surgical History: pacemaker implantation, - Psychiatric History: No pertinent psych hx - *Family History Maternal History Items: Diabetes Paternal History Items: Heart Disease Lives: Alone Smoking Status: Light Smoker (<10/day) Tobacco Use: Cigarettes Alcohol: Occasional Drugs: None Objective: Vital Signs Temp Pulse Resp BP Pulse Ox 96.7 F L 132 H 18 101/82 H 98 02/19/20 13:10 02/19/20 13:10 02/19/20 13:10 02/19/20 13:10 02/19/20 12:00 Oxygen Flow Rate (L/min) 2 Oxygen Delivery Method Nasal Cannula Weight: 153 lb 4.8 oz Body Mass Index (BMI) 22.6 Finger Stick Blood Glucose 95 Intake and Output for Last 24 Hours 02/17/20 02/18/20 02/19/20 23:59 23:59 23:59 Intake Total 1000.05 / 1000.05 480 / 480 Output Total 0 / 0 Balance 1000.05 / 1000.05 480 / 480 General: Awake, Alert, Oriented x 3 02/18/20 00:10: WBC 13.0 H, RBC 5.17, Hgb 15.5, Hct 48.2, MCV 93.2, MCH 30.0, MCHC 32.2, Plt Count 122 L, MPV 10.6, Immature Gran % (Auto) 0.600, Neut % (Auto) 79.6 H, Lymph % (Auto) 10.4 L, Stephens % (Auto) 7.3, Eos % (Auto) 1.9, Baso % (Auto) 0.2, Absolute Neuts (auto) 10.4 H, Nucleated RBC % 0.9 02/18/20 00:10: Sodium 135 L, Potassium 4.1, Chloride 92 L, Carbon Dioxide 19.0 L, Anion Gap 24 H, BUN 44 H, Creatinine 11.30 H*, Est GFR (MDRD) Af Amer 6 L, Est GFR (MDRD) Non-Af 5 L, BUN/Creatinine Ratio 3.9 L, Glucose 127 H, Calcium 9.6 02/18/20 15:20: Sodium 131 L, Potassium 6.8 H*, Chloride 90 L, Carbon Dioxide 16.0 L, Anion Gap 25 H, BUN 65 H, Creatinine 14.00 H*, Est GFR (MDRD) Af Amer 5 L, Est GFR (MDRD) Non-Af 4 L, BUN/Creatinine Ratio 4.6 L, Glucose 97, Calcium 9.4, Troponin I 0.039 02/18/20 15:20: Potassium 7.1 H* 02/19/20 00:10: B-Natriuretic Peptide 21.0 02/19/20 00:10: Phosphorus 12.3 H*, Magnesium 2.4 02/19/20 05:14: Sodium 132 L, Potassium 4.2, Chloride 85 L, Carbon Dioxide 26.0, Anion Gap 21 H, BUN 49 H, Creatinine 11.60 H*, Est GFR (MDRD) Af Amer 6 L, Est GFR (MDRD) Non-Af 5 L, BUN/Creatinine Ratio 4.2 L, Glucose 99, Calcium 9.0 Rhythm: EKG: ECHO: Stress Test: Cardiac Cath: PCI: CT Surgery: Holter monitor: EPS: PPM: CXR: Chest CT Scan: Assessment/Plan 59-year-old patient who presented with generalized weakness and shortness of breath Noted to have hyperkalemia which have been corrected Patient is on hemodialysis Also patient had extensive cardiac history with acute on chronic systolic heart failure Has ICD/biventricular pacer. Today he denied any symptoms he does not have any chest pain his shortness of breath is improving Review of the bedside monitors as well as the ICD interrogation noted Also his current dosage of beta-clement had been reduced From cardiac standpoint would recommend to follow-up with his primary curriculum and assessment director as an outpatient on medical therapy.
--- NOTE | 2020-02-19 14:25 | CASEMGMT ---
ENRIQUE REIS assessment: Face to Face with patient for initial transition planning/care coordination assessment. ENRIQUE REIS introduced self and role at [facility], pt voices understanding and consents to assessment at this time. Pt is lying in bed in no distress at this time. Pt is A/Ox4 at this time and answers all questions appropriately at this time. Care providers, pharmacy, and demographics verified at this time. Presentation: SOB for several days Admitting dx: Hyperkalemia PCP: Misha Specialists: tim Spencer Preferred Pharmacy: [facility] Insurance: [facility] community plan Prescription Benefit: Yes Living Will/HPOA: Pt states no LW/HPOA and declines AD info at this time. LNOK: Rasta Peterson, brother Living Arrangements: Pt states lives alone in 3rd floor apartment with elevator and states no concerns at home at this time. Pt states is independent with ADL's. Transportation: Pt states uses the following for transportation: [employer](for dialysis), family, [employer], and [employer]. DME/HHC: Pt states has home oxygen set up for 3-4liters at this time as well as a nebulizer, but cannot remember name of company. Pt declines need for any further DME at this time. Pt states no hx of HHC or SNF in the past. Pt goes to [facility] at 0600. Pt states no concerns with going home at time of discharge. Pt states is disabled. Pt states still smokes 1.5pk/day but states plans to quit at this time and does not drink ETOH. Pt states no further concerns/needs at this time. CM to follow for any further discharge planning/needs. Advised pt to ask for CM if any further questions/concerns/needs arise, voices understanding. Pt Goal: Home Plan: [place] ENRIQUE REIS
--- NOTE | 2020-02-19 16:29 | EKG12_ITS ---
Test Reason : Blood Pressure : / mmHG Vent. Rate : 142 BPM Atrial Rate : 111 BPM P-R Int : 000 ms QRS Dur : 142 ms QT Int : 382 ms P-R-T Axes : 000 071 257 degrees QTc Int : 587 ms Ventricular-paced rhythm Abnormal ECG Confirmed by JOSEPH DINH, JENNIFER ([id number]), material expeditor JERSEY BALDERRAMA ([id number]) on 02/29/2020 9:17:47 AM Referred By: ELIUD Confirmed By:ANGEL RUIZ MD
[2020-02-19 16:35] LABS: Anion Gap 20 (5-15); BUN 30 mg/dL (7-18); BUN/Creat Ratio 3.9 RATIO (10-20); Calcium,Total 8.8 mg/dL (8.5-10.1); Chloride 93 mmol/L (98-107); Creatinine, Serum 7.78 mg/dL (0.70-1.30); EST Glomerular Filtration Rate 8 mL/min (>60); Est Glom Filt Rate - Afr Amer 9 mL/min (>60); Estimated Creatinine Clearance 9.77 ml/min; Glucose 42 mg/dL (74-106); Sodium Level 131 mmol/L (136-145)
[2020-02-19] MEDS: Dextrose 50%-Water 25 GM/50 ML DISP.SYRIN IV ×2 (16:53→18:29)
[2020-02-19 17:00] LABS: Bedside Glucose 35 mg/dL (70-110)
[2020-02-19] MEDS: 0.9% Saline Lock 10 ML Syringe IV (17:20)
[2020-02-19] MEDS: Amiodarone 360 MG in Dextrose 5% Viaflo Bag 192.8 ML 33.3 MG CONT INF (17:36)
--- NOTE | 2020-02-19 17:59 | NURSING ---
Called to room, patient passed out for a second. PVCs noted on telemetry. Amiodarone off.
[2020-02-19 18:34] LABS: Anion Gap 16 (5-15); BUN 32 mg/dL (7-18); BUN/Creat Ratio 3.9 RATIO (10-20); Calcium,Total 8.9 mg/dL (8.5-10.1); Chloride 88 mmol/L (98-107); Creatinine, Serum 8.12 mg/dL (0.70-1.30); EST Glomerular Filtration Rate 7 mL/min (>60); Est Glom Filt Rate - Afr Amer 9 mL/min (>60); Estimated Creatinine Clearance 9.36 ml/min; Glucose 133 mg/dL (74-106); Potassium 3.9 mmol/L (3.5-5.1); Sodium Level 130 mmol/L (136-145)
--- NOTE | 2020-02-19 18:38 | NURSING ---
Amiodarone resumed per cardiology orders.
--- NOTE | 2020-02-19 18:57 | PCS.PANDOC ---
PANDEMIC DOCUMENTATION INITIATED: Date: 02/18/2020 Time: 18:00
--- NOTE | 2020-02-19 19:00 | NURSING ---
Dr. Florian and and Dr. Lugo notified of patient episode of passing out while turning to clean up. Also alerted about patient complaining of feeling of not being able to swallow his food. Dr. Florian notified of symptoms and ordered to continue amiodorone at 1mg per the protocol/ order (refer to MAR), VS all stable at this time. Patient complaining of being excessively cold and sweaty, BS checked and noted to be 35. Dr. Lugo noted and d50 ordered and administered, BS rechecked and noted to be 27, additional amp ordered and administered. Pt noted to return to baseline and continued eating dinner, blood sugar rechecked at 1900 after two amps of D50 and result 70. Will continue to monitor.
[2020-02-19 19:01] LABS: Bedside Glucose 27 mg/dL (70-110)
[2020-02-19 19:01] LABS: Bedside Glucose 70 mg/dL (70-110)
[2020-02-19 20:18] LABS: Anion Gap 18 (5-15); BUN 34 mg/dL (7-18); BUN/Creat Ratio 4.1 RATIO (10-20); Calcium,Total 9.1 mg/dL (8.5-10.1); Chloride 89 mmol/L (98-107); Creatinine, Serum 8.29 mg/dL (0.70-1.30); EST Glomerular Filtration Rate 7 mL/min (>60); Est Glom Filt Rate - Afr Amer 9 mL/min (>60); Estimated Creatinine Clearance 9.17 ml/min; Glucose 113 mg/dL (74-106); Potassium 4.1 mmol/L (3.5-5.1); Sodium Level 132 mmol/L (136-145)
--- NOTE | 2020-02-19 21:18 | PCM.PN.BLA ---
Progress Note CODE KARISSA was called at 2035. I arrived at 2039 and compressions were already being performed. He had a large amount of vomitus that was having difficulty being suctioned from his airway. At the time of my arrival he was receiving I believe his first dose of epinephrine. During the pulse check he remained pulseless unfortunately he had a pacemaker/ICD so his rhythm was not identifiable so compressions were resumed. He was given a second dose of epinephrine at which point I believe I saw coarse V. fib and at the time I was unaware that he had an ICD, we did provide 1 shock and then resume CPR. At this point we continued to need to suction and unfortunately with bagging there is no chest rise. After 20 minutes of CPR with 3 rounds of epi and 1 shock the code was called in time of was 2055 on 02/19/2020. I did attempt to call family however they did not answer and his voice mailbox was full so I could not leave a message. I did instruct nursing staff to attempt to reach him a few more times this evening if possible. STROKE Vital Signs/Narrative: Vital Signs Temp Pulse Resp BP Pulse Ox 02/19/20 19:04 113 H 37 H 95/47 L 02/19/20 19:03 134 H 02/19/20 18:50 118 H 26 H 110/61 02/19/20 18:36 114 H 37 H 99/60 02/19/20 18:00 96.9 F L 127 H 28 H 99/60 94 02/19/20 17:36 135 H 41 H 84/54 L 02/19/20 17:20 138 H 30 H 90/35 L
--- NOTE | 2020-02-19 21:19 | NURSING ---
This RN spoke with Dr Neville, whom was present at [facility]. Dr Neville attempted to call pt's listed contact, brother Rasta Peterson, and reached his voicemail which was full. This RN will attempt to call pt's brother again. Socorro NUNEZ
[2020-02-19 21:45] LABS: Bedside Glucose 59 mg/dL (70-110)
[2020-02-19 21:45] LABS: Bedside Glucose 66 mg/dL (70-110)
--- NOTE | 2020-02-19 21:49 | NURSING ---
Attempted to contact Coby (pt ) at this time. This RN called [phone] and there was no answer. Additionally, this RN called [phone] and the person answering stated we had a wrong number.
--- NOTE | 2020-02-19 22:15 | NURSING ---
No IV fluids were given during code blue. Socorro NUNEZ
--- NOTE | 2020-02-19 22:34 | NURSING ---
This RN attempted to call pt's brother Rasta. Was unable to reach and unable to leave voicemail d/t pt inbox being full. Socorro NUNEZ
--- NOTE | 2020-02-19 23:25 | NURSING ---
This RN notified pt brother, Rasta Peterson, of pt . Pt brother to come see pt. Socorro NUNEZ
--- NOTE | 2020-02-20 02:25 | NURSING ---
Pt leaving to [facility] with nursing supervisor fine grading at this time. Socorro NUNEZ
--- NOTE | 2020-02-20 14:19 | EXP.PCM_ITS ---
Preliminary Cause of pulseless electric acitivty Date of Admission: 02/18/20 Date of : 02/20/20 - Principle Diagnosis 1. Acute hyperkalemia: * Resolved * Likely due to dietary non complaince. * Continue HD per nephrology 2. Tachycardia * paced and persistent * consult cardiology for recommendations. 3. Metabolic acidosis: * Improving * Secondary to end-stage renal disease. 4. Hyperphosphatemia * likely 2/2 secondary hyperparathyroidism * restrict phosphorous intake to 900 mg/day * continue calcium acetate (phosphorous binder) 5. Dyspnea: * This is compensatory mechanism (respiratory alkalosis) for the metabolic acidosis. Patient has no distress and is chest x-ray is unremarkable at this time. * Covid was negative x2 on the as well as . Problem List: Active and Suspected Problems (Last Reviewed 02/18/20 @ 16:[address] Edmar Lugo, DO) Hyperkalemia (Acute) Generalized weakness (Acute) Dyspnea (Acute) Hospital Course Patient presented on February 15 with shortness of breath. He was seen in the emergency room received antimedics and discharged home. Is noted that his potassium was slightly up but patient was discharged home as he stated he had dialysis about 6 hours. Nephrology was noted at that time. Patient returned on the with shortness of breath and his potassium was even higher at 6.6. Patient was again discharged home to receive dialysis. The patient then returned on the with shortness of breath and his potassium was even higher at 6.8. Patient was in metabolic acidosis with carbon dioxide of 16 and an anion gap of 25. Nephrology was contacted and patient did receive dialysis. The following day, his potassium normalized and patient was feeling better and he was less short of breath. Patient had some abnormal labs and regards to his blood sugar being low which was found on the subsequent BMP at 42. Patient did receive an amp of D50. Had repeat hypoglycemia and did receive an additional amp of D50. Patient was also having tachycardia and appeared to be paced. Cardiology was consulted and patient was seen by Dr. Florian. Initially recommended discontinuation of his beta-clement. Explained to the edge runner patient was still tachycardic and appeared to be pacing fast. He recommend starting the patient on amiodarone. And patient received a bolus and then on amiodarone drip. Received a notification at 1814 that patient was complaining of swelling in his throat and trouble swallowing though it was not noted by nursing that patient was having any obvious angioedema. They informed me that they were reaching out to cardiology about further recommendations. Amiodarone was held but subsequently resumed 1835. At 2019, patient was noted by nursing to be resting in bed. At some point after that, patient was noted to be unresponsive and shaking. A CODE BLUE was called at 2034. I discussed with nursing and the patient was unresponsive and no pulse was obtained. Patient did appear to have a paced rhythm at that time. CPR was initiated patient did receive epinephrine. Patient subsequently was found, during the course of CPR, what appeared to be V. fib and was shocked. There was a large amount of vomitus after CPR was initiated. Nursing informed me that there was no evidence of any emesis prior to that. Patient received 20 minutes of CPR with 3 rounds epinephrine shock. Code was called and patient was pronounced at 2055 on February 19, 2020.
== END 2020-02-20 02:28 | DRG 640 ==
LOC: ED 15:05 → PCU 16:56
PROVIDERS: Hospitalist; Internal Medicine Nephrology; Emergency Provider Emergency Medicine; PCP Internal Medicine
DX: E87.5 Hyperkalemia (principal); N18.6 End stage renal disease; I50.43 Acute on chronic combined systolic (congestive) and diastolic (congestive) heart failure; I13.2 Hypertensive heart and chronic kidney disease with heart failure and with stage 5 chronic kidney disease, or end stage renal disease; I42.0 Dilated cardiomyopathy; N25.81 Secondary hyperparathyroidism of renal origin; R00.0 Tachycardia, unspecified; E87.2 Acidosis; E83.39 Other disorders of phosphorus metabolism; E16.2 Hypoglycemia, unspecified; I49.01 Ventricular fibrillation; R13.10 Dysphagia, unspecified; R22.1 Localized swelling, mass and lump, neck; I48.0 Paroxysmal atrial fibrillation; D63.1 Anemia in chronic kidney disease; E78.5 Hyperlipidemia, unspecified; K21.9 Gastro-esophageal reflux disease without esophagitis; F17.210 Nicotine dependence, cigarettes, uncomplicated; Z99.2 Dependence on renal dialysis; Z79.899 Other long term (current) drug therapy
CPT/HCPCS: 36415; 71045; 74176; 80048; 80053; 82803; 82962; 83735; 83880; 84100; 84132; 84443; 84484; 85025; 87426; 90937; 92950; 93005; 94640; 97802; 99284; 99285; 99406; J7030; A4216; G0257; J0610; J2405